=== PATIENT | female | born 1960 | race Two or more races ===

== ENCOUNTER → 2020-10-12 08:37 | Outpatient (BNVA) | payer OTHER, SELFPAY | PROVIDERS: Visit Provider Physician Assistant | DX: Z76.89 Persons encountering health services in other specified circumstances (principal) ==

== ENCOUNTER → 2020-11-01 09:45 | Outpatient (BNVA) | payer OTHER, SELFPAY | PROVIDERS: PCP Internal Medicine; Visit Provider Nurse Practitioner Gerontology | DX: Z76.89 Persons encountering health services in other specified circumstances (principal) ==

== ENCOUNTER 2020-11-29 11:02 | Outpatient (REF) | payer OTHER, SELFPAY ==
[2020-11-29 13:15] LABS: Alanine Aminotransferase 13 U/L (0-31); Albumin Level 4.4 g/dL (3.5-5.0); Alkaline Phosphatase 102 U/L (39-117); Anion Gap 12 (12-20); Aspartate Amino Transferase 22 U/L (5-31); Bilirubin Total 0.3 mg/dL (0.0-1.0); Blood Urea Nitrogen 17 mg/dL (9-16); Calcium 9.4 mg/dL (8.4-10.2); Carbon Dioxide 30 mmol/L (22-29); Chloride 101 mmol/L (96-108); Estimated Glomerular Filt Rate > 60; Glucose Random 152 mg/dL (60-115); Potassium 4.2 mmol/l (3.3-5.1); Sodium 139 mmol/L (135-145); Total Protein 7.6 g/dL (6.5-8.0)
== END 2020-11-29 11:03 | disposition home or self-care (01) ==
LOC: HO.LAB 11:02
PROVIDERS: PCP Internal Medicine; Visit Provider Student in an Organized Health Care Education/Training Program
DX: M79.7 Fibromyalgia (principal); M17.0 Bilateral primary osteoarthritis of knee; Z79.899 Other long term (current) drug therapy
CPT/HCPCS: 36415; 80053; 99212

== ENCOUNTER → 2020-12-27 10:17 | Outpatient (BNVA) | payer OTHER, SELFPAY | PROVIDERS: PCP Internal Medicine; Visit Provider Nurse Practitioner Gerontology | DX: E11.42 Type 2 diabetes mellitus with diabetic polyneuropathy (principal); Z79.4 Long term (current) use of insulin; I10 Essential (primary) hypertension; E78.5 Hyperlipidemia, unspecified; E66.9 Obesity, unspecified | CPT/HCPCS: 99212 ==

== ENCOUNTER → 2021-02-07 09:05 | Outpatient (BNVA) | payer OTHER, SELFPAY | PROVIDERS: PCP Internal Medicine; Visit Provider Nurse Practitioner Gerontology ==

== ENCOUNTER → 2021-04-19 09:26 | Outpatient (BNVA) | payer OTHER, SELFPAY | PROVIDERS: PCP Internal Medicine; Visit Provider Physician Assistant ==

== ENCOUNTER → 2021-04-26 13:17 | Outpatient (BNVA) | payer OTHER, SELFPAY | PROVIDERS: PCP Internal Medicine; Visit Provider Nurse Practitioner Gerontology ==

== ENCOUNTER → 2021-06-28 11:35 | Outpatient (BNVA) | payer OTHER, SELFPAY | PROVIDERS: Visit Provider Physician Assistant ==

== ENCOUNTER → 2021-08-01 13:34 | Outpatient (BNVA) | payer OTHER, SELFPAY | PROVIDERS: PCP Internal Medicine; Visit Provider Nurse Practitioner Gerontology ==

== ENCOUNTER → 2021-09-04 07:08 | Outpatient (REF) | payer OTHER, SELFPAY ==
--- NOTE | ~2021-09-04 | NM_ITS ---
EXAMINATION: RADIONUCLIDE SOLID FOOD GASTRIC EMPTYING 4-HOUR STUDY CLINICAL INFORMATION: Nausea. COMPARISON: No previous gastric emptying study is available for comparison. TECHNIQUE: A standard meal consisting of 4 oz of Egg Beaters brand equivalent tagged with 940 microcuries Tc-99m Sulfur Colloid, 8 oz water and 2 slices of toast with jelly was administered orally to the patient. Images were obtained using a dual head gamma camera in the anterior and posterior projections over of the stomach immediately post ingestion and at hourly intervals up to 4 hours post ingestion. The anterior and posterior counts at each time interval were averaged using the geometric mean and expressed as percentage of the immediate post ingestion counts. FINDINGS: There is good visualization of activity in the stomach immediately post ingestion. As the study progresses, there is only minimal visualization of small bowel activity early in the study and this progressively increases. However, at the end of the study there is moderately to markedly abnormal retention of activity in the stomach at 4 hours. Retention in the stomach at each time interval was: 1 hour 96% (normal 37%-90%) 2 hours 85% (normal 30%-60%) 3 hours 7% 4 hours 49% (normal 0%-10%) NM/NM gastric emptying study IMPRESSION: Abnormal study. There is moderate to markedly prolonged retention of solid food in the stomach at 4 hours.
== END ==
LOC: HO.NUCMED 07:08
PROVIDERS: Visit Provider Physician Assistant
DX: R11.0 Nausea (principal); E11.42 Type 2 diabetes mellitus with diabetic polyneuropathy; Z79.4 Long term (current) use of insulin; K76.0 Fatty (change of) liver, not elsewhere classified
CPT/HCPCS: 78264; A9541

== ENCOUNTER 2021-10-17 09:22 | Outpatient (REF) | payer OTHER, SELFPAY ==
[2021-10-17 12:07] LABS: Alanine Aminotransferase 10 U/L (0-31); Albumin Level 4.1 g/dL (3.5-5.0); Alkaline Phosphatase 110 U/L (39-117); Anion Gap 13 (12-20); Aspartate Amino Transferase 18 U/L (5-31); Bilirubin Total 0.4 mg/dL (0.0-1.0); Blood Urea Nitrogen 10 mg/dL (9-16); Calcium 9.9 mg/dL (8.4-10.2); Carbon Dioxide 29 mmol/L (22-29); Chloride 101 mmol/L (96-108); Estimated Glomerular Filt Rate > 60; Glucose Random 139 mg/dL (60-115); Potassium 4.2 mmol/L (3.3-5.1); Sodium 139 mmol/L (135-145); Total Protein 7.6 g/dL (6.5-8.0)
== END 2021-10-17 09:23 | disposition home or self-care (01) ==
LOC: HO.LAB 09:22
PROVIDERS: PCP Internal Medicine; Visit Provider Nurse Practitioner Family
DX: M17.0 Bilateral primary osteoarthritis of knee (principal)
CPT/HCPCS: 36415; 80053; 80171

== ENCOUNTER 2021-10-17 10:42 | Outpatient (REF) | payer OTHER, SELFPAY ==
[2021-10-17 10:48] LABS: MANUAL DIFF FLAG NO
[2021-10-17 11:41] LABS: Basophils Percent Auto 0.4 % (0-2); Eosinophils Absolute Auto 0.1 X10*3/uL (0.0-0.4); Eosinophils Percent Auto 1.3 % (0-4); Hemoglobin 11.9 g/dl (12.0-16.0); Imm Gran Abs Auto 0.02 X10*3/uL (0.00-0.03); Imm Gran Pct Auto 0.3 % (0.0-0.4); Lymphocytes Absolute Auto 1.8 X10*3/uL (1.2-4.9); Lymphocytes Percent Auto 24.1 % (20-40); Mean Corpuscular HGB Conc 32.2 g/dl (31.0-35.0); Mean Corpuscular Volume 99.5 fL (80.0-98.0); Monocytes Absolute Auto 0.7 X10*3/uL (0.1-1.2); Monocytes Percent Auto 9.9 % (2-11); Neutrophils Absolute Auto 4.8 x10*3/uL (2.0-8.3); Platelet Count 142 X10*3/uL (160-400); Red Blood Count 3.72 X10*6/uL (4.20-5.50); Red Cell Distribution Width 12.9 % (11.0-16.0); White Blood Count 7.5 X10*3/uL (4.8-10.8)
[2021-10-17 11:52] LABS: Appearance Urine HAZY; Color Urine YELLOW; Glucose Urine UA NEG (NEG); Leukocyte Esterase Urine NEG (NEG); Nitrite Urine NEG (NEG); Urine Blood NEG (NEG); Urine Ketones NEG (NEG); Urine Protein 1+ MG/DL (NEG-TRACE)
[2021-10-17 11:54] LABS: Alanine Aminotransferase 9 U/L (0-31); Albumin Level 4.1 g/dL (3.5-5.0); Alkaline Phosphatase 111 U/L (39-117); Anion Gap 12 (12-20); Aspartate Amino Transferase 19 U/L (5-31); Bilirubin Total 0.4 mg/dL (0.0-1.0); Blood Urea Nitrogen 10 mg/dL (9-16); Calcium 9.8 mg/dL (8.4-10.2); Carbon Dioxide 29 mmol/L (22-29); Chloride 102 mmol/L (96-108); Cholesterol 152 mg/dL; Estimated Glomerular Filt Rate > 60; Glucose Fasting 133 mg/dL (60-99); HDL Cholesterol 36 mg/dL; LDL Cholesterol Calculated 86 mg/dl; Potassium 4.2 mmol/L (3.3-5.1); Sodium 139 mmol/L (135-145); Total Protein 7.5 g/dL (6.5-8.0); Triglycerides 152 mg/dL
[2021-10-17 12:04] LABS: Reflex LDLD? No
[2021-10-17 12:14] LABS: Vitamin D 25-OH Total 27.5 ng/mL (>30)
[2021-10-17 12:18] LABS: Bacteria Urine TRACE /LPF; RBC Urine 0 /HPF (0); Squamous Epithelial Cell Urine 1+ /LPF; WBC Urine 0 /HPF (0-4)
[2021-10-17 12:25] LABS: Creatinine Urine 58.81 mg/dL; Microalbum/Creatinine Ratio Ur 841.6 ug/mg cr
[2021-10-17 12:26] LABS: Estimated Average Glucose 203 mg/dL; Hemoglobin A1c % 8.7 %
== END 2021-10-17 10:43 | disposition home or self-care (01) ==
LOC: HO.LNP 10:42
PROVIDERS: Visit Provider Internal Medicine
DX: Z00.00 Encounter for general adult medical examination without abnormal findings (principal); E55.9 Vitamin D deficiency, unspecified; E11.40 Type 2 diabetes mellitus with diabetic neuropathy, unspecified; E78.00 Pure hypercholesterolemia, unspecified; D69.6 Thrombocytopenia, unspecified; I10 Essential (primary) hypertension
CPT/HCPCS: 80053; 80061; 81001; 81003; 82043; 82306; 83036; 85025

== ENCOUNTER → 2021-11-21 12:25 | Outpatient (BNVA) | payer OTHER, SELFPAY | PROVIDERS: PCP Internal Medicine; Visit Provider Nurse Practitioner Family | DX: M17.0 Bilateral primary osteoarthritis of knee (principal); M79.7 Fibromyalgia; M25.572 Pain in left ankle and joints of left foot | CPT/HCPCS: 99212 ==

== ENCOUNTER → 2021-12-05 13:14 | Outpatient (BNVA) | payer OTHER, SELFPAY | PROVIDERS: PCP Internal Medicine; Visit Provider Nurse Practitioner Gerontology | DX: E11.42 Type 2 diabetes mellitus with diabetic polyneuropathy (principal); I10 Essential (primary) hypertension; E78.5 Hyperlipidemia, unspecified; R80.9 Proteinuria, unspecified; E66.9 Obesity, unspecified; Z68.37 Body mass index [BMI] 37.0-37.9, adult; Z79.4 Long term (current) use of insulin | CPT/HCPCS: 82947; 99212 ==

== ENCOUNTER 2021-12-11 07:47 | Outpatient (REF) | payer OTHER, SELFPAY ==
--- NOTE | ~2021-12-11 | XR_ITS ---
EXAMINATION: XR ankle LT min 3V CLINICAL INFORMATION: Pain COMPARISON: Left foot radiographs TECHNIQUE: 3 views of the ankle XR/XR ankle LT min 3V FINDINGS/IMPRESSION: Punctate age-indeterminate osseous fragment along the medial malleolus may reflect sequelae of age-indeterminate avulsion fracture. No significant overlying soft tissue swelling. Mild degenerative changes of the ankle with Achilles tendon and plantar calcaneal enthesopathy. No joint effusion.
== END 2021-12-11 07:48 | disposition home or self-care (01) ==
LOC: HO.HOSX 07:47
PROVIDERS: Visit Provider Physician Assistant
DX: M19.072 Primary osteoarthritis, left ankle and foot (principal)
CPT/HCPCS: 73610; 99202

== ENCOUNTER → 2021-12-14 13:32 | Outpatient (BNVA) | payer OTHER, SELFPAY | PROVIDERS: PCP Internal Medicine; Referring Provider Internal Medicine; Visit Provider Physician Assistant | DX: K31.84 Gastroparesis (principal); K59.09 Other constipation; E11.42 Type 2 diabetes mellitus with diabetic polyneuropathy; Z79.4 Long term (current) use of insulin; Z79.82 Long term (current) use of aspirin | CPT/HCPCS: 99212 ==

== ENCOUNTER 2022-01-24 15:00 | Outpatient (RCR) | payer OTHER, SELFPAY ==
--- NOTE | 2021-12-27 15:55 | MHC.PT.EP ---
[facility] [place] Office [place] Office [place] Office [address] Ju[place] Rivera [address] [phone] F: [phone] F: [phone] F: [phone] F: [phone] Physical Therapy Plan of Care Date of Evaluation: Date of Surgery: Diagnosis: OA L ankle and foot Assessment: 61 y/o female referred to PT with L ankle OA. PMH significant for HTN, DM, CVA, and neuropathy. 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 Examination shows decreased ankle AROM, decreased B LE strength, increased senstivity to touch medial malleoli, impaired balance, and impaired gait pattern. Recommend PT 2x/week for 5 weeks to address impairments, implement HEP, and optimize functional mobility. Frequency and Duration: The patient will be seen 2x/week for 5 weeks Short Term Goals: 3 weeks 1. Compliant with HEP 2. 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 I with HEP and self management of sx 2. Pt will be able to stand > 15 min to wash dishes with pain < 3/10 Treatment Plan: Modalities to reduce pain, spasms and effusion. Manual therapy to restore motion and function. Therapeutic exercise to improve strength and flexibility. Neuromuscular re-education for posture and balance. Therapeutic activities to return to functional activities of daily living. Electronically signed by: Silke Dumas PT Please sign and return to therapist. Thank you for your referral.
--- NOTE | 2022-02-07 13:22 | MHC.PT.DC ---
[facility] [place] Office [place] Office [place] Office [address] Ju[place] Rivera 140 [facility] [phone] F: [phone] F: [phone] F: [phone] F: [phone] Physical Therapy Discharge Report Diagnosis: OA L ankle and foot Date of Surgery: Date of Evaluation: 12/27/21 Date of Discharge: 02/07/22 Treatments to Date: 7 Cancellations to Date: 0 No Shows to Date: 0 Discharge Status: Patient Elected to Stop Discharge Summary: Pt elected to stop PT with minimal change. Electronically signed by: Silke Dumas PT Please sign and return to therapist. Thank you for your referral.
== END 2022-02-07 13:22 | disposition home or self-care (01) ==
LOC: HO.PT 15:00
PROVIDERS: PCP Internal Medicine; Visit Provider Physician Assistant
DX: M19.072 Primary osteoarthritis, left ankle and foot (principal)
CPT/HCPCS: 97110; 97140; 97161

== ENCOUNTER 2022-02-15 13:38 | Outpatient (REF) | payer OTHER, SELFPAY ==
[2022-02-22 04:28] LABS: HPV mRNA E6/E7 rflx Not Detected (Not Detected)
== END 2022-02-15 13:39 | disposition home or self-care (01) ==
LOC: HO.LAB 13:38
PROVIDERS: PCP Internal Medicine; Visit Provider Advanced Practice Midwife
DX: Z01.419 Encounter for gynecological examination (general) (routine) without abnormal findings (principal); Z11.51 Encounter for screening for human papillomavirus (HPV)
CPT/HCPCS: 87624; 88142

== ENCOUNTER → 2022-03-20 13:00 | Outpatient (BNVA) | payer OTHER, SELFPAY | PROVIDERS: PCP Internal Medicine; Visit Provider Nurse Practitioner Gerontology | DX: E11.42 Type 2 diabetes mellitus with diabetic polyneuropathy (principal); I10 Essential (primary) hypertension; E78.5 Hyperlipidemia, unspecified; E66.9 Obesity, unspecified; R80.9 Proteinuria, unspecified; Z79.4 Long term (current) use of insulin | CPT/HCPCS: 99212 ==

== ENCOUNTER → 2022-04-06 13:39 | Outpatient (BNVA) | payer OTHER, SELFPAY | PROVIDERS: PCP Internal Medicine; Visit Provider Physician Assistant | DX: M19.072 Primary osteoarthritis, left ankle and foot (principal) | CPT/HCPCS: 99212 ==

== ENCOUNTER → 2022-09-10 13:51 | Outpatient (BNVA) | payer OTHER, SELFPAY | PROVIDERS: PCP Internal Medicine; Visit Provider Physician Assistant | DX: K59.09 Other constipation (principal); K31.84 Gastroparesis; K76.0 Fatty (change of) liver, not elsewhere classified | CPT/HCPCS: 99212 ==

== ENCOUNTER 2022-10-18 13:07 | Emergency (ER) | payer OTHER, SELFPAY ==
--- NOTE | ~2022-10-18 | XR_ITS ---
EXAMINATION: XR CHEST CLINICAL INFORMATION: Chest pain COMPARISON: March 2018. TECHNIQUE: AP upright portable view of the chest was obtained. 1:30 PM, patient slightly rotated to the right. FINDINGS: No significant abnormality is noted involving the heart, lungs, mediastinum, bony thorax or soft tissues. XR/XR chest 1V IMPRESSION: Unremarkable examination.
[2022-10-18 13:24] VITALS: BP 178/78; PULSE 80
[2022-10-18 13:28] VITALS: BP 168/70; PULSE 81; RESP 16; O2SAT 95; BMI 39.0
--- NOTE | 2022-10-18 13:28 | ECG_ITS ---
Test Reason : CHEST PAIN Blood Pressure : / mmHG Vent. Rate : 076 BPM Atrial Rate : 076 BPM P-R Int : 184 ms QRS Dur : 096 ms QT Int : 360 ms P-R-T Axes : 044 027 036 degrees QTc Int : 405 ms Normal sinus rhythm Normal ECG When compared with ECG of 11-MAR-2018 13:46, No significant change was found Referred By: Ramya Morales Electronically Signed By:IRMA HARRIS
--- NOTE | 2022-10-18 13:29 | ED.GENADULT ---
HPI - General Adult General Chief complaint: General Medical Stated complaint: back pain, pain around chest per EMS Time Seen by Provider: 10/18/22 13:27 Source: patient and EMS Mode of arrival: EMS Limitations: no limitations History of Present Illness HPI narrative: 62-year-old female with a history of fibromyalgia, osteoarthritis, constipation, gastroparesis, HLD, HTN, DM with polyneuropathy, CHAUDHARI who presents ot the ER via EMS c/o back and chest pains that started at 10am when she went to reach up for something in the kitchen cupboard. She reports the pain is constant, does not radiate and is in the center of her chest. She denies any associated shortness of breath, nausea, diaphoresis. She states she also has pain in her back that is worse with movement. She feels like she is having a flare-up of her fibromyalgia but she usually does not get pain in the center of her chest when her fibromyalgia acts up. MD complaint: Chest pain and back pain Onset (ago): hour(s) Location: neck and back Radiation: non-radiation Severity: mild Severity scale (1-10): 3 Quality: aching Pain Consistency: constant Relieving factors: rest Exacerbating factors: movement and other ( palpation) Associated symptoms: denies other symptoms Treatments prior to arrival: none Related Data Home Medications Medication Instructions Recorded Confirmed atenolol 50 mg tablet 50 mg PO DAILY 10/12/20 09/10/22 alcohol swabs pad topical 11/01/20 09/10/22 ferrous sulfate 325 mg (65 mg 325 mg PO DAILY 11/01/20 09/10/22 iron) tablet pen needle, diabetic 32 gauge x #50 ea 11/01/20 09/10/22 aspirin 81 mg tablet,delayed 81 mg PO DAILY 12/27/20 09/10/22 release cholecalciferol (vitamin D3) 50 50 mcg PO DAILY 02/07/21 09/10/22 mcg (2,000 unit) tablet acetaminophen 500 mg tablet 500 mg PO Q6H PRN 11/21/21 09/10/22 (Tylenol Extra Strength) triamcinolone acetonide 0.1 % appl topical DAILY 12/14/21 09/10/22 topical cream amlodipine 2.5 mg tablet 2.5 mg PO DAILY 03/20/22 09/10/22 canagliflozin 100 mg tablet 100 mg PO DAILY 03/20/22 09/10/22 (Invokana) Previous Rx's Medication Instructions Recorded lisinopril 40 mg tablet 40 mg PO DAILY #30 tabs 03/24/21 blood sugar diagnostic (FreeStyle #150 ea 12/05/21 Lite Strips) prucalopride 1 mg tablet 2 mg PO DAILY #30 tabs 12/14/21 (Motegrity) omeprazole 40 mg capsule,delayed 40 mg PO DAILY #30 caps 03/12/22 release dulaglutide 0.75 mg/0.5 mL 0.75 mg (0.5 mL) subcut QWEEK #2 mL 03/20/22 subcutaneous pen injector (Trulicity) dulaglutide 1.5 mg/0.5 mL 1.5 mg (0.5 mL) subcut QWEEK 28 03/20/22 subcutaneous pen injector days #2 mL (Trulicity) insulin degludec 200 unit/mL (3 68 unit (0.34 mL) subcut DAILY 30 03/20/22 mL) subcutaneous pen (Tresiba days #12 mL FlexTouch U-200 insulin) insulin lispro 100 unit/mL See Rx Instructions subcut TID 30 03/20/22 subcutaneous pen (Admelog SoloStar days #30 mL U-100 Insulin lispro) metformin 500 mg tablet 500 mg PO BID 30 days #60 tabs 03/20/22 atorvastatin 40 mg tablet 40 mg PO DAILY #30 tabs 05/14/22 hydrochlorothiazide 12.5 mg capsule 12.5 mg PO DAILY #30 caps 07/11/22 docusate sodium 100 mg capsule 200 mg PO BEDTIME #60 caps 09/10/22 docusate sodium 100 mg capsule 200 mg PO BEDTIME #60 caps 09/10/22 (Colace) hydrocortisone 2.5 % topical cream 1 appl TN BEDTIME PRN hemorrhoids 09/10/22 with perineal applicator #30 grams (Proctosol HC) polyethylene glycol 3350 17 17 g PO DAILY #510 grams 09/10/22 gram/dose oral powder (Miralax) pregabalin 100 mg capsule 100 mg PO BID #60 caps 10/15/22 cyclobenzaprine 10 mg tablet 10 mg PO TID PRN muscle spasm #10 10/18/22 tabs naproxen 500 mg tablet 500 mg PO BID PRN pain #20 tabs 10/18/22 Allergies Allergy/AdvReac Type Severity Reaction Status Date / Time GEL ELECTRODES Allergy Mild RASH Uncoded 03/20/22 13:22 Review of Systems Review of Systems: Constitutional: No Fever, No Chills ENT/Mouth: No sore throat, No Rhinorrhea, No Swallowing Difficulty Cardiovascular: + Chest Pain, No SOB, No Orthopnea, No Edema Respiratory: No Cough, No Sputum, No Wheezing, No dyspnea Gastrointestinal: No Nausea, No Vomiting, No Diarrhea, No abdominal Pain Genitourinary: No Dysuria, No Urinary Frequency, No Hematuria Musculoskeletal: + joint pain, + Myalgias Skin: No Skin Lesions, No rash Neuro: No Weakness, No Numbness, No Dizziness, No Headache Psych: No Anxiety/Panic, No Depression Heme/Lymph: No Bruising, No Lymphadenopathy PMFSH Past Medical History Medical History Anxiety Chronic constipation Depression Essential hypertension Fibromyalgia Fibromyalgia Hepatomegaly History of alcohol abuse Hyperlipidemia LDL goal <70 NAFLD (nonalcoholic fatty liver disease) Neuropathy Obesity with body mass index of 30.0-39.9 DARIEL on CPAP Osteoarthritis Primary osteoarthritis of knees, bilateral Stroke Tubular adenoma of colon Type 2 diabetes mellitus with diabetic polyneuropathy Upper GI bleed Urinary incontinence Surgical History History of temporal artery biopsy Hx of colonoscopy Hx of esophagogastroduodenoscopy Family History Family History Father Diabetes Mother Hypertension Daughter Breast cancer Ovarian cancer Social History Social History Household Members: Family Household Members Other:: adult child and grandchild Alcohol intake: former Patient Tobacco Use Status: Former Tobacco user Years Smoked: quit 10 years ago Advance Directives: Yes Advance Directives Information Provided: Yes Advance Directives on File: No Current occupational status: disabled Current occupation: rt handed Physical Exam ED Vital Signs: Vital Signs - 24 hr 10/18/22 13:28 10/18/22 13:58 10/18/22 16:37 Temperature 98.2 F 98.1 F Pulse Rate 81 75 63 Respiratory Rate 16 15 19 Blood Pressure 168/70 H 133/48 L 142/66 H Pulse Oximetry 95 98 97 Oxygen Delivery Method Room Air Room Air Room Air BMI result Body Mass Index 39.0 Appearance: Alert. Oriented X3. No acute distress. Eyes: Pupils equal, round and reactive to light. ENT: Pharynx normal. Neck: Normal inspection. Neck supple. CVS: Normal heart rate and rhythm. Pulses normal. Respiratory: No respiratory distress. Breath sounds normal. anterior chest wall tenderness of the sternum. Abdomen: Soft and nontender. +BS x4 Skin: Skin warm and dry. Normal skin color. Normal skin turgor. No rashes. Extremities: No lower extremity edema. No calf tenderness or swelling. Neuro: Oriented X 3. No motor deficit. No sensory deficit. Course Course Course Narrative: 62-year-old female with history of diabetes, fibromyalgia, osteoarthritis, constipation, gastroparesis, HTN, HLD presenting to the ER for evaluation of central nonradiating chest pain that started after reaching up for something in the covered. It is reproducible on examination. She is hemodynamically stable. Most likely muscular pain. Does not radiate to the back and she has soft tissue tenderness of her back muscles which is acute on chronic due to her fibromyalgia. Will get cardiac workup to rule out ACS although this is less likely. Doubt any dissection or PE. She is comfortable playing on her phone. Reevaluation(s) Reevaluation #1: First troponin is less than 3.5. Her EKG was reviewed. No ST elevations. will get 2nd troponin. Reevaluation #2: Second troponin is negative. Her pain is improved after Toradol. Will treat for musculoskeletal chest pain and have her follow-up with her PCP. She was given strict return precautions. Medications Administered Discontinued Medications Generic Name Dose Route Start Last Admin Trade Name Freq PRN Reason Stop Dose Admin Ketorolac Tromethamine 30 mg 10/18/22 15:33 10/18/22 15:52 Ketorolac Tromethamine 30 Mg/Ml Vial IM 10/18/22 15:34 30 mg ONCE ONE Administration Medical Decision Making Lab Data Result Diagrams: 10/18/22 14:44 10/18/22 14:44 Labs: Lab Results 10/18/22 10/18/22 10/18/22 Range/Units 14:44 14:44 14:44 WBC 8.6 (4.8-10.8) X10*3/uL RBC 3.70 L (4.20-5.50) X10*6/uL Hgb 11.7 L (12.0-16.0) g/dl Hct 35.9 L (37.0-47.0) % MCV 97.0 (80.0-98.0) fL MCH 31.6 (27.0-33.0) pg MCHC 32.6 (31.0-35.0) g/dl RDW 13.0 (11.0-16.0) % Plt Count 134 L (160-400) X10*3/uL MPV 12.8 H (9.4-12.3) fL Immature Gran % (Auto) Cancelled Neut % (Auto) Cancelled Lymph % (Auto) Cancelled [place] % (Auto) Cancelled Eos % (Auto) Cancelled Baso % (Auto) Cancelled Lymph # (Auto) Cancelled [place] # (Auto) Cancelled Eos # (Auto) Cancelled Baso # (Auto) Cancelled Abs Immat Gran (auto) Cancelled Absolute Neuts (auto) Cancelled Absolute Nucleated RBC 0.000 (0.0-0.012) X10*3/uL Nucleated RBC % (auto) 0.0 (0.0-0.2) /100WBC Neutrophils % (Manual) 72 (45-73) % Band Neutrophils % 0 L (3-5) % Lymphocytes % (Manual) 23 (20-40) % Monocytes % (Manual) 3 (2-11) % Eosinophils % (Manual) 1 (0-4) % Basophils % (Manual) 1 (0-2) % Abs Neuts (Manual) 6.2 (2.0-8.3) X10*3/uL Lymphocytes # (Manual) 2.0 (1.2-4.9) X10*3/uL Monocytes # (Manual) 0.3 (0.1-1.2) X10*3/uL Eosinophils # (Manual) 0.1 (0.0-0.4) X10*3/uL Basophils # (Manual) 0.1 (0.0-0.2) X10*3/uL Platelet Estimate SLIGHTLY DECREASED (NORMAL) Large Platelets PRESENT Plt Morphology Comment NOTED RBC Morphology NORMAL Sodium 137 (135-145) mmol/L Potassium 4.8 (3.3-5.1) mmol/L Chloride 98 (96-108) mmol/L Carbon Dioxide 34 H (22-29) mmol/L Anion Gap 10 L (12-20) BUN 22 H (9-16) mg/dL Creatinine 0.99 (0.5-1.4) mg/dL Estim Creat Clear Calc 59.1 Estimated GFR 57 Random Glucose 203 H (60-115) mg/dL Calcium 9.7 (8.4-10.2) mg/dL Magnesium 2.0 (1.6-2.6) mg/dL Total Bilirubin 0.2 (0.0-1.0) mg/dL Direct Bilirubin < 0.2 (0.0-0.5) mg/dL AST 14 (5-31) U/L ALT 7 (0-31) U/L Alkaline Phosphatase 114 (39-117) U/L Troponin I High Sens < 3.5 (<3.5-17.0) ng/L Total Protein 7.5 (6.5-8.0) g/dL Albumin 4.3 (3.5-5.0) g/dL COVID-19 (ARYA) (Negative) COVID-19 Clin Com Influenza Type A (VICTORIANO) (Negative) Influenza Type B (VICTORIANO) (Negative) Influenza A & B Note 10/18/22 10/18/22 10/18/22 Range/Units 14:45 15:05 16:10 WBC (4.8-10.8) X10*3/uL RBC (4.20-5.50) X10*6/uL Hgb (12.0-16.0) g/dl Hct (37.0-47.0) % MCV (80.0-98.0) fL MCH (27.0-33.0) pg MCHC (31.0-35.0) g/dl RDW (11.0-16.0) % Plt Count (160-400) X10*3/uL MPV (9.4-12.3) fL Immature Gran % (Auto) Neut % (Auto) Lymph % (Auto) [place] % (Auto) Eos % (Auto) Baso % (Auto) Lymph # (Auto) [place] # (Auto) Eos # (Auto) Baso # (Auto) Abs Immat Gran (auto) Absolute Neuts (auto) Absolute Nucleated RBC (0.0-0.012) X10*3/uL Nucleated RBC % (auto) (0.0-0.2) /100WBC Neutrophils % (Manual) (45-73) % Band Neutrophils % (3-5) % Lymphocytes % (Manual) (20-40) % Monocytes % (Manual) (2-11) % Eosinophils % (Manual) (0-4) % Basophils % (Manual) (0-2) % Abs Neuts (Manual) (2.0-8.3) X10*3/uL Lymphocytes # (Manual) (1.2-4.9) X10*3/uL Monocytes # (Manual) (0.1-1.2) X10*3/uL Eosinophils # (Manual) (0.0-0.4) X10*3/uL Basophils # (Manual) (0.0-0.2) X10*3/uL Platelet Estimate (NORMAL) Large Platelets Plt Morphology Comment RBC Morphology Sodium (135-145) mmol/L Potassium (3.3-5.1) mmol/L Chloride (96-108) mmol/L Carbon Dioxide (22-29) mmol/L Anion Gap (12-20) BUN (9-16) mg/dL Creatinine (0.5-1.4) mg/dL Estim Creat Clear Calc Estimated GFR Random Glucose (60-115) mg/dL Calcium (8.4-10.2) mg/dL Magnesium (1.6-2.6) mg/dL Total Bilirubin (0.0-1.0) mg/dL Direct Bilirubin (0.0-0.5) mg/dL AST (5-31) U/L ALT (0-31) U/L Alkaline Phosphatase (39-117) U/L Troponin I High Sens 3.7 (<3.5-17.0) ng/L Total Protein (6.5-8.0) g/dL Albumin (3.5-5.0) g/dL COVID-19 (ARYA) Negative (Negative) COVID-19 Clin Com See Note Influenza Type A (VICTORIANO) Negative (Negative) Influenza Type B (VICTORIANO) Negative (Negative) Influenza A & B Note See Note Independent Interpretation I performed an independent interpretation of an: EKG Interpretation: normal sinus rhythm, HR 76 bpm, question ST depression in V4 only, no ST segment elevations, normal QRS, normal QTc Scores Heart Score History: -0- slightly suspicious ECG: -0- normal Age: -1- >45 - <65 Risk factory: -1- 1 or 2 risk factors Troponin: -0- < or = normal limit Score: 2 Risk: 1.7% Discharge Plan Discharge Clinical Impression: Acute chest wall pain Patient Disposition: Home, Self-Care Instructions: Chest Wall Pain (ED) Additional Instructions: Your workup today was unremarkable. Your pain is most likely muscular. Take the prescribed medications as directed. Follow-up with your primary care doctor. If you develop new or worsening symptoms call 911 or come back to the ER for further evaluation. Prescriptions: New cyclobenzaprine 10 mg tablet 10 mg PO TID PRN (Reason: muscle spasm) Qty: 10 0RF naproxen 500 mg tablet 500 mg PO BID PRN (Reason: pain) Qty: 20 0RF No Action lisinopril 40 mg tablet 40 mg PO DAILY Qty: 30 1RF omeprazole 40 mg capsule,delayed release(DR/EC) 40 mg PO DAILY Qty: 30 11RF atorvastatin 40 mg tablet 40 mg PO DAILY Qty: 30 6RF hydrochlorothiazide 12.5 mg capsule 12.5 mg PO DAILY Qty: 30 4RF docusate sodium 100 mg capsule 200 mg PO BEDTIME Qty: 60 5RF pregabalin 100 mg capsule 100 mg PO BID Qty: 60 0RF alcohol swabs Pads, Medicated topical ferrous sulfate 325 mg (65 mg iron) tablet 325 mg PO DAILY (DME) pen needle, diabetic 32 gauge x 5/32 needle See Rx Instructions subcut QID Qty: 50 Rx Instructions: As directed aspirin 81 mg tablet,delayed release (DR/EC) 81 mg PO DAILY acetaminophen [Tylenol Extra Strength] 500 mg tablet 500 mg PO Q6H PRN cholecalciferol (vitamin D3) 50 mcg (2,000 unit) tablet 50 mcg PO DAILY atenolol 50 mg tablet 50 mg PO DAILY triamcinolone acetonide 0.1 % cream topical DAILY Motegrity 1 mg tablet 2 mg PO DAILY Qty: 30 3RF docusate sodium [Colace] 100 mg capsule 200 mg PO BEDTIME Qty: 60 12RF polyethylene glycol 3350 [Miralax] 17 gram/dose powder 17 g PO DAILY Qty: 510 2RF hydrocortisone [Proctosol HC] 2.5 % cream with perineal applicator 1 appl TN BEDTIME PRN (Reason: hemorrhoids) Qty: 30 3RF (DME) FreeStyle Lite Strips Strip See Rx Instructions .ROUTE .MEDSUPPLY Qty: 150 11RF Rx Instructions: As directed four times a day Invokana 100 mg tablet 100 mg PO DAILY amlodipine 2.5 mg tablet 2.5 mg PO DAILY insulin lispro [Admelog SoloStar U-100 Insulin] 100 unit/mL insulin pen See Rx Instructions subcut TID 30 Days Qty: 30 6RF Rx Instructions: 15 u for small meals, 15 u for large, + 2 units for bg>200, + 3 units for BG >250, + 4 units bg >300mg/dl. Of note..for very light meal use only 6 units. subcut 3 times a day; Trulicity 0.75 mg/0.5 mL pen injector 0.75 mg subcut QWEEK Qty: 2 0RF Rx Instructions: Use 0.75mg/week for 4 weeks, then increase to 1.5mg/week Trulicity 1.5 mg/0.5 mL pen injector 1.5 mg subcut QWEEK 28 Days Qty: 2 6RF Tresiba FlexTouch U-200 200 unit/mL (3 mL) insulin pen 68 unit subcut DAILY 30 Days Qty: 12 6RF metformin 500 mg tablet 500 mg PO BID 30 Days Qty: 60 6RF
[2022-10-18 13:58] VITALS: BP 133/48; PULSE 75; RESP 15; TEMP 36.8; O2SAT 98
[2022-10-18 14:57] LABS: Hematocrit 35.9 % (37.0-47.0); Hemoglobin 11.7 g/dl (12.0-16.0); Mean Corpuscular HGB Conc 32.6 g/dl (31.0-35.0); Mean Corpuscular Hemoglobin 31.6 pg (27.0-33.0); Mean Platelet Volume 12.8 fL (9.4-12.3); Platelet Count 134 X10*3/uL (160-400)
[2022-10-18 14:59] LABS: WBC ABN SCTR FOR CBC 1
[2022-10-18 15:18] LABS: Band Neutrophils Percent 0 % (3-5); Basophils Percent Manual 1 % (0-2); Eosinophils Percent Manual 1 % (0-4); Lymphocytes Percent Manual 23 % (20-40); Monocytes Percent Manual 3 % (2-11); Neutrophils Percent Manual 72 % (45-73)
[2022-10-18 15:19] LABS: Large Platelet PRESENT; Platelet Estimate SLIGHTLY DECREASED (NORMAL); Platelet Morphology Comment NOTED; RBC Morphology NORMAL
[2022-10-18 15:20] LABS: COVID-19 Test Negative (Negative); IDNOW Serial# 9DB6401D
[2022-10-18 15:22] LABS: Alanine Aminotransferase 7 U/L (0-31); Albumin Level 4.3 g/dL (3.5-5.0); Alkaline Phosphatase 114 U/L (39-117); Anion Gap 10 (12-20); Aspartate Amino Transferase 14 U/L (5-31); Bilirubin Direct < 0.2 mg/dL (0.0-0.5); Bilirubin Total 0.2 mg/dL (0.0-1.0); Blood Urea Nitrogen 22 mg/dL (9-16); Calcium 9.7 mg/dL (8.4-10.2); Carbon Dioxide 34 mmol/L (22-29); Chloride 98 mmol/L (96-108); Creatinine Clr Calc Pharmacy 59.1; Estimated Glomerular Filt Rate 57; Glucose Random 203 mg/dL (60-115); Potassium 4.8 mmol/L (3.3-5.1); Sodium 137 mmol/L (135-145); Total Protein 7.5 g/dL (6.5-8.0)
[2022-10-18 15:24] LABS: Basophils Abs Manual 0.1 X10*3/uL (0.0-0.2); Eosinophils Absolute Manual 0.1 X10*3/uL (0.0-0.4); Monocytes Absolute Manual 0.3 X10*3/uL (0.1-1.2); Neutrophils Absolute Manual 6.2 X10*3/uL (2.0-8.3); White Blood Count 8.6 X10*3/uL (4.8-10.8)
[2022-10-18 15:28] LABS: Troponin-I High Sensitivity < 3.5 ng/L (<3.5-17.0)
[2022-10-18 15:32] LABS: IDNOW Serial# 55D5AD1C; Influenza A Negative (Negative); Influenza B2 Negative (Negative)
[2022-10-18] MEDS: Ketorolac Tromethamine 30 MG/ML VIAL IM (15:52)
[2022-10-18 16:37] VITALS: BP 142/66; PULSE 63; RESP 19; TEMP 36.7; O2SAT 97
[2022-10-18 16:44] LABS: Troponin-I High Sensitivity 3.7 ng/L (<3.5-17.0)
== END 2022-10-18 17:14 | disposition home or self-care (01) ==
PROVIDERS: Physician Assistant; Emergency Provider Student in an Organized Health Care Education/Training Program; PCP Internal Medicine
DX: R07.89 Other chest pain (principal); M54.50 Low back pain, unspecified; Z20.822 Contact with and (suspected) exposure to COVID-19; Z87.891 Personal history of nicotine dependence; Z79.899 Other long term (current) drug therapy
CPT/HCPCS: 36415; 71045; 80048; 80076; 83735; 84484; 85007; 85027; 87502; 87635; 93005; 96372; 99284; J1885

== ENCOUNTER → 2022-11-01 09:50 | Outpatient (BNVA) | payer OTHER, SELFPAY | PROVIDERS: PCP Internal Medicine; Visit Provider Internal Medicine Endocrinology, Diabetes & Metabolism | DX: E11.42 Type 2 diabetes mellitus with diabetic polyneuropathy (principal); Z79.4 Long term (current) use of insulin | CPT/HCPCS: 82947; 83036; 99212 ==

== ENCOUNTER 2022-11-01 15:48 | Outpatient (REF) | payer OTHER, SELFPAY ==
[2022-11-01 16:15] LABS: Appearance Urine Clear; Color Urine Yellow; Glucose Urine UA >=1000 mg/dL (Negative); Leukocyte Esterase Urine Trace (Negative); Nitrite Urine Negative (Negative); PH 5.5 (5.0-9.0); Specific Gravity - Urine 1.025 (1.005-1.025); UMIC TRIGGER UA YES; Urine Blood Negative (Negative); Urine Ketones Negative (Negative); Urine Protein Negative (Neg-Trace)
[2022-11-01 16:17] LABS: Bacteria Urine Trace (None Seen); Hyaline Casts Urine 0-2 /LPF (0-2); RBC Urine 0-2 /HPF (0-2); Squamous Epithelial Cell Urine 0-2 /HPF (0-2); WBC Urine 0-5 /HPF (0-5)
[2022-11-01 16:22] LABS: Basophils Percent Auto 0.4 % (0-2); Hemoglobin 11.9 g/dl (12.0-16.0); Mean Platelet Volume 13.3 fL (9.4-12.3); Red Cell Distribution Width 13.7 % (11.0-16.0); SCAN SMEAR FLAG 1
[2022-11-01 16:24] LABS: Eosinophils Absolute Auto 0.1 X10*3/uL (0.0-0.4); Eosinophils Percent Auto 1.5 % (0-4); Hematocrit 37.1 % (37.0-47.0); Imm Gran Abs Auto 0.03 X10*3/uL (0.00-0.03); Imm Gran Pct Auto 0.4 % (0.0-0.4); Lymphocytes Percent Auto 25.2 % (20-40); MANUAL DIFF FLAG SCAN; Mean Corpuscular HGB Conc 32.1 g/dl (31.0-35.0); Mean Corpuscular Hemoglobin 31.5 pg (27.0-33.0); Mean Corpuscular Volume 98.1 fL (80.0-98.0); Monocytes Absolute Auto 0.7 X10*3/uL (0.1-1.2); Monocytes Percent Auto 8.8 % (2-11); Neutrophils Absolute Auto 5.1 x10*3/uL (2.0-8.3); Neutrophils Percent Auto 63.7 % (45-73); Platelet Count 146 X10*3/uL (160-400); Red Blood Count 3.78 X10*6/uL (4.20-5.50)
[2022-11-01 16:26] LABS: Estimated Average Glucose 183 mg/dL
[2022-11-01 16:31] LABS: PLT ABN DIST 1
[2022-11-01 16:48] LABS: Creatinine Urine 84.94 mg/dL; Microalbum/Creatinine Ratio Ur 21.1 ug/mg cr
[2022-11-01 16:49] LABS: SLIDE REVIEW VERIFIED
[2022-11-01 17:11] LABS: Alanine Aminotransferase 8 U/L (0-31); Albumin Level 4.5 g/dL (3.5-5.0); Alkaline Phosphatase 98 U/L (39-117); Anion Gap 14 (12-20); Aspartate Amino Transferase 16 U/L (5-31); Bilirubin Total 0.5 mg/dL (0.0-1.0); Blood Urea Nitrogen 31 mg/dL (9-16); Carbon Dioxide 31 mmol/L (22-29); Chloride 100 mmol/L (96-108); Cholesterol 193 mg/dL; Estimated Glomerular Filt Rate > 60; Glucose Fasting 98 mg/dL (60-99); HDL Cholesterol 40 mg/dL; LDL Cholesterol Calculated 115 mg/dl; Potassium 4.8 mmol/L (3.3-5.1); Sodium 140 mmol/L (135-145); Triglycerides 190 mg/dL; Vitamin D 25-OH Total 44.4 ng/mL (>30)
== END 2022-11-01 15:49 | disposition home or self-care (01) ==
LOC: HO.LNP 15:48
PROVIDERS: Visit Provider Internal Medicine
DX: Z00.00 Encounter for general adult medical examination without abnormal findings (principal); E11.9 Type 2 diabetes mellitus without complications; E78.00 Pure hypercholesterolemia, unspecified; E55.9 Vitamin D deficiency, unspecified; D69.6 Thrombocytopenia, unspecified
CPT/HCPCS: 80053; 80061; 81001; 82043; 82306; 83036; 85025

== ENCOUNTER → 2022-11-02 08:44 | Outpatient (BNVA) | payer OTHER, SELFPAY | PROVIDERS: PCP Internal Medicine; Visit Provider Registered Nurse Diabetes Educator | DX: E11.42 Type 2 diabetes mellitus with diabetic polyneuropathy (principal); Z79.4 Long term (current) use of insulin | CPT/HCPCS: 99211 ==

== ENCOUNTER → 2022-11-12 12:34 | Outpatient (BNVA) | payer OTHER, SELFPAY | PROVIDERS: PCP Internal Medicine; Visit Provider Registered Nurse Diabetes Educator | DX: E11.42 Type 2 diabetes mellitus with diabetic polyneuropathy (principal); Z79.4 Long term (current) use of insulin | CPT/HCPCS: 99211 ==

== ENCOUNTER 2022-11-21 13:00 | Outpatient (REF) | payer OTHER, SELFPAY ==
[2022-11-21 14:03] LABS: Appearance Urine Clear; Color Urine Yellow; Glucose Urine UA >=1000 mg/dL (Negative); Leukocyte Esterase Urine Negative (Negative); Nitrite Urine Negative (Negative); PH 5.5 (5.0-9.0); Specific Gravity - Urine 1.025 (1.005-1.025); UMIC TRIGGER UA YES; Urine Blood Negative (Negative); Urine Ketones Negative (Negative); Urine Protein Negative (Neg-Trace)
[2022-11-21 14:13] LABS: Bacteria Urine Trace (None Seen); Hyaline Casts Urine 0-2 /LPF (0-2); RBC Urine 0-2 /HPF (0-2); WBC Urine 0-5 /HPF (0-5)
[2022-11-21 14:22] LABS: Microalbum/Creatinine Ratio Ur 11.6 ug/mg cr; Total Protein Urine Random < 7 mg/dL (<12)
[2022-11-21 14:38] LABS: Anion Gap 12 (12-20); Blood Urea Nitrogen 26 mg/dL (9-16); Calcium 9.6 mg/dL (8.4-10.2); Carbon Dioxide 29 mmol/L (22-29); Chloride 103 mmol/L (96-108); Estimated Glomerular Filt Rate 56; Potassium 4.5 mmol/L (3.3-5.1); Sodium 139 mmol/L (135-145)
== END 2022-11-21 13:01 | disposition home or self-care (01) ==
LOC: HO.LAB 13:00
PROVIDERS: PCP Internal Medicine; Visit Provider Internal Medicine Nephrology
DX: R80.1 Persistent proteinuria, unspecified (principal); I12.9 Hypertensive chronic kidney disease with stage 1 through stage 4 chronic kidney disease, or unspecified chronic kidney disease; E11.22 Type 2 diabetes mellitus with diabetic chronic kidney disease; N18.9 Chronic kidney disease, unspecified; M17.0 Bilateral primary osteoarthritis of knee; M79.7 Fibromyalgia; M25.511 Pain in right shoulder; M25.512 Pain in left shoulder; M25.551 Pain in right hip; M25.552 Pain in left hip; M25.532 Pain in left wrist
CPT/HCPCS: 36415; 80051; 81001; 82043; 82310; 82565; 84156; 84520; 99212

== ENCOUNTER 2022-12-31 15:16 | Outpatient (REF) | payer OTHER, SELFPAY ==
--- NOTE | ~2022-12-31 | XR_ITS ---
EXAMINATION: XR shoulder RT min 2V, XR hip LT min 2V, XR hip RT min 2V, XR shoulder LT min 2V, XR wrist LT 2V CLINICAL INFORMATION: Reason for Exam M25.511 - Pain in right shoulder COMPARISON: None. TECHNIQUE: 2 views of the bilateral shoulders, 2 views of the bilateral hips and 2 views of the left wrist XR/XR hip LT min 2V FINDINGS/IMPRESSION: * Left wrist: No acute fracture or dislocation. Mild degenerative changes of the first CMC joint. * Right hip: Mild osteoarthritis with joint space narrowing and subchondral cystic changes. No acute fracture or dislocation. * Left hip: Moderate osteoarthritis with joint space narrowing and subchondral cystic changes. No acute fracture or dislocation. * Right shoulder: No acute fracture or dislocation. Degenerative changes of the acromioclavicular joint. * Left shoulder: No acute fracture or dislocation. Degenerative changes of the acromioclavicular joint.
--- NOTE | ~2022-12-31 | XR_ITS ---
EXAMINATION: XR shoulder RT min 2V, XR hip LT min 2V, XR hip RT min 2V, XR shoulder LT min 2V, XR wrist LT 2V CLINICAL INFORMATION: Reason for Exam M25.511 - Pain in right shoulder COMPARISON: None. TECHNIQUE: 2 views of the bilateral shoulders, 2 views of the bilateral hips and 2 views of the left wrist XR/XR wrist LT 2V FINDINGS/IMPRESSION: * Left wrist: No acute fracture or dislocation. Mild degenerative changes of the first CMC joint. * Right hip: Mild osteoarthritis with joint space narrowing and subchondral cystic changes. No acute fracture or dislocation. * Left hip: Moderate osteoarthritis with joint space narrowing and subchondral cystic changes. No acute fracture or dislocation. * Right shoulder: No acute fracture or dislocation. Degenerative changes of the acromioclavicular joint. * Left shoulder: No acute fracture or dislocation. Degenerative changes of the acromioclavicular joint.
--- NOTE | ~2022-12-31 | XR_ITS ---
EXAMINATION: XR shoulder RT min 2V, XR hip LT min 2V, XR hip RT min 2V, XR shoulder LT min 2V, XR wrist LT 2V CLINICAL INFORMATION: Reason for Exam M25.511 - Pain in right shoulder COMPARISON: None. TECHNIQUE: 2 views of the bilateral shoulders, 2 views of the bilateral hips and 2 views of the left wrist XR/XR shoulder LT min 2V FINDINGS/IMPRESSION: * Left wrist: No acute fracture or dislocation. Mild degenerative changes of the first CMC joint. * Right hip: Mild osteoarthritis with joint space narrowing and subchondral cystic changes. No acute fracture or dislocation. * Left hip: Moderate osteoarthritis with joint space narrowing and subchondral cystic changes. No acute fracture or dislocation. * Right shoulder: No acute fracture or dislocation. Degenerative changes of the acromioclavicular joint. * Left shoulder: No acute fracture or dislocation. Degenerative changes of the acromioclavicular joint.
--- NOTE | ~2022-12-31 | XR_ITS ---
EXAMINATION: XR shoulder RT min 2V, XR hip LT min 2V, XR hip RT min 2V, XR shoulder LT min 2V, XR wrist LT 2V CLINICAL INFORMATION: Reason for Exam M25.511 - Pain in right shoulder COMPARISON: None. TECHNIQUE: 2 views of the bilateral shoulders, 2 views of the bilateral hips and 2 views of the left wrist XR/XR shoulder RT min 2V FINDINGS/IMPRESSION: * Left wrist: No acute fracture or dislocation. Mild degenerative changes of the first CMC joint. * Right hip: Mild osteoarthritis with joint space narrowing and subchondral cystic changes. No acute fracture or dislocation. * Left hip: Moderate osteoarthritis with joint space narrowing and subchondral cystic changes. No acute fracture or dislocation. * Right shoulder: No acute fracture or dislocation. Degenerative changes of the acromioclavicular joint. * Left shoulder: No acute fracture or dislocation. Degenerative changes of the acromioclavicular joint.
--- NOTE | ~2022-12-31 | XR_ITS ---
EXAMINATION: XR shoulder RT min 2V, XR hip LT min 2V, XR hip RT min 2V, XR shoulder LT min 2V, XR wrist LT 2V CLINICAL INFORMATION: Reason for Exam M25.511 - Pain in right shoulder COMPARISON: None. TECHNIQUE: 2 views of the bilateral shoulders, 2 views of the bilateral hips and 2 views of the left wrist XR/XR hip RT min 2V FINDINGS/IMPRESSION: * Left wrist: No acute fracture or dislocation. Mild degenerative changes of the first CMC joint. * Right hip: Mild osteoarthritis with joint space narrowing and subchondral cystic changes. No acute fracture or dislocation. * Left hip: Moderate osteoarthritis with joint space narrowing and subchondral cystic changes. No acute fracture or dislocation. * Right shoulder: No acute fracture or dislocation. Degenerative changes of the acromioclavicular joint. * Left shoulder: No acute fracture or dislocation. Degenerative changes of the acromioclavicular joint.
== END 2022-12-31 15:17 | disposition home or self-care (01) ==
LOC: HO.XRAY 15:16
PROVIDERS: PCP Internal Medicine; Visit Provider Nurse Practitioner Family
DX: M25.511 Pain in right shoulder (principal); M25.512 Pain in left shoulder; M25.532 Pain in left wrist; M25.551 Pain in right hip; M25.552 Pain in left hip
CPT/HCPCS: 73030; 73100; 73502

== ENCOUNTER 2023-01-02 13:44 | Outpatient (REF) | payer OTHER, SELFPAY ==
[2023-01-02 15:50] LABS: Erythrocyte Sedimentation Rate 51 MM/HR (0-20)
[2023-01-02 16:31] LABS: Creatinine Urine 75.73 mg/dL; Microalbum/Creatinine Ratio Ur 22.4 ug/mg cr
[2023-01-02 16:36] LABS: Anion Gap 13 (12-20); Blood Urea Nitrogen 21 mg/dL (9-16); C Reactive Protein 0.69 mg/dL (< or = 0.50); Calcium 9.6 mg/dL (8.4-10.2); Carbon Dioxide 30 mmol/L (22-29); Chloride 102 mmol/L (96-108); Cholesterol 165 mg/dL; Estimated Glomerular Filt Rate > 60; Glucose Random 76 mg/dL (60-115); HDL Cholesterol 35 mg/dL; LDL Cholesterol Calculated 83 mg/dl; Potassium 4.5 mmol/L (3.3-5.1); Sodium 140 mmol/L (135-145); Triglycerides 237 mg/dL
== END 2023-01-02 13:45 | disposition home or self-care (01) ==
LOC: HO.LAB 13:44
PROVIDERS: Internal Medicine Endocrinology, Diabetes & Metabolism; PCP Internal Medicine; Visit Provider Nurse Practitioner Family
DX: M17.0 Bilateral primary osteoarthritis of knee (principal); M19.042 Primary osteoarthritis, left hand; M19.041 Primary osteoarthritis, right hand; M79.7 Fibromyalgia; M25.511 Pain in right shoulder; M25.512 Pain in left shoulder; M25.551 Pain in right hip; M25.552 Pain in left hip; M25.532 Pain in left wrist; E11.42 Type 2 diabetes mellitus with diabetic polyneuropathy; R20.0 Anesthesia of skin; R20.2 Paresthesia of skin; Z79.899 Other long term (current) drug therapy; Z79.4 Long term (current) use of insulin; Z79.84 Long term (current) use of oral hypoglycemic drugs
CPT/HCPCS: 36415; 80048; 80061; 82043; 82550; 85652; 86140; 99212

== ENCOUNTER 2023-01-31 07:53 | Outpatient (REF) | payer OTHER, SELFPAY ==
--- NOTE | 2023-01-31 07:58 | EMG_ITS ---
Bilateral median and ulnar motor and sensory studies were performed. Bilateral radial sensory studies were performed and paraspinal muscles were tested with a needle. IMPRESSION: 1. [id number] bilateral median neuropathy across carpal tunnel. 2. Mild bilateral ulnar neuropathy across cubital tunnel. MD ROSSANA Mayers/MELISSA / [id number]
== END 2023-01-31 07:54 | disposition home or self-care (01) ==
LOC: HO.NEURO 07:53
PROVIDERS: PCP Internal Medicine; Visit Provider Nurse Practitioner Family
DX: R20.0 Anesthesia of skin (principal); R20.2 Paresthesia of skin
CPT/HCPCS: 95886; 95911

== ENCOUNTER → 2023-02-27 13:12 | Outpatient (BNVA) | payer OTHER, SELFPAY | PROVIDERS: PCP Internal Medicine; Visit Provider Orthopaedic Surgery | DX: G56.03 Carpal tunnel syndrome, bilateral upper limbs (principal); G56.23 Lesion of ulnar nerve, bilateral upper limbs; E11.42 Type 2 diabetes mellitus with diabetic polyneuropathy; Z79.4 Long term (current) use of insulin | CPT/HCPCS: 99212 ==

== ENCOUNTER 2023-03-08 11:17 | Outpatient (REF) | payer OTHER, SELFPAY ==
[2023-03-08 11:50] LABS: Estimated Average Glucose 131 mg/dL; Hemoglobin A1C 148.4415 umol/L; Hemoglobin A1c % 6.2 %
== END 2023-03-08 11:18 | disposition home or self-care (01) ==
LOC: HO.LNP 11:17
PROVIDERS: PCP Internal Medicine; Visit Provider Internal Medicine
DX: E11.40 Type 2 diabetes mellitus with diabetic neuropathy, unspecified (principal)
CPT/HCPCS: 83036

== ENCOUNTER → 2023-03-21 12:17 | Outpatient (BNVA) | payer OTHER, SELFPAY | PROVIDERS: PCP Internal Medicine; Visit Provider Internal Medicine Endocrinology, Diabetes & Metabolism | DX: E11.42 Type 2 diabetes mellitus with diabetic polyneuropathy (principal); Z79.4 Long term (current) use of insulin | CPT/HCPCS: 82947; 99212 ==

== ENCOUNTER → 2023-04-03 09:58 | Outpatient (REF) | payer OTHER, SELFPAY ==
--- NOTE | 2023-04-03 10:09 | ECG_ITS ---
Test Reason : preop Blood Pressure : / mmHG Vent. Rate : 068 BPM Atrial Rate : 068 BPM P-R Int : 188 ms QRS Dur : 090 ms QT Int : 390 ms P-R-T Axes : 043 049 059 degrees QTc Int : 414 ms Sinus rhythm with occasional Premature ventricular complexes Otherwise normal ECG When compared with ECG of 18-OCT-2022 13:44, Premature ventricular complexes are now Present Referred By: Mal Yin Electronically Signed By:ILIANA SANTIAGO MD
== END ==
LOC: HO.CARD 09:58
PROVIDERS: PCP Internal Medicine; Visit Provider Internal Medicine
DX: Z01.818 Encounter for other preprocedural examination (principal)
CPT/HCPCS: 93005

== ENCOUNTER → 2023-04-30 12:48 | Outpatient (BNVA) | payer OTHER, SELFPAY | PROVIDERS: PCP Internal Medicine; Visit Provider Orthopaedic Surgery | DX: G56.03 Carpal tunnel syndrome, bilateral upper limbs (principal); G56.23 Lesion of ulnar nerve, bilateral upper limbs; E11.42 Type 2 diabetes mellitus with diabetic polyneuropathy; Z79.4 Long term (current) use of insulin | CPT/HCPCS: 99212 ==

== ENCOUNTER 2023-05-02 06:05 | Day surgery (SDC) | payer OTHER, SELFPAY ==
--- NOTE | 2023-05-01 09:11 | HO.ANESPROP2 ---
HPI - Anesthesia Eval Consult details Narrative: 62yo F for Left Cubital Tunnel Release verses transposition, Carpal Tunnel Release Medically optimized Hx ETOH abuse PMFSH Active Problems Active Problems: All Active Problems (Updated 02/27/23 @ 13:51 by Ming Ashraf) Cubital tunnel syndrome, bilateral (Acute) Bilateral carpal tunnel syndrome (Acute) Encounter for screening mammogram for malignant neoplasm of breast (Acute) Encounter for annual routine gynecological examination (Acute) Chronic constipation (Acute) Gastroparesis (Acute) Osteoarthritis of left ankle (Acute) Proteinuria (Acute) Nausea (Acute) Fibromyalgia (Acute) Primary osteoarthritis of knees, bilateral (Acute) Type 2 diabetes mellitus with diabetic polyneuropathy (Acute) Essential hypertension (Acute) Hyperlipidemia LDL goal <70 (Acute) Obesity with body mass index of 30.0-39.9 (Acute) NAFLD (nonalcoholic fatty liver disease) (Acute) Past Medical History Medical History Anxiety Chronic constipation Depression Essential hypertension Fibromyalgia Fibromyalgia Hepatomegaly History of alcohol abuse Hyperlipidemia LDL goal <70 NAFLD (nonalcoholic fatty liver disease) Neuropathy Obesity with body mass index of 30.0-39.9 DARIEL on CPAP Osteoarthritis Primary osteoarthritis of knees, bilateral Stroke Tubular adenoma of colon Type 2 diabetes mellitus with diabetic polyneuropathy Upper GI bleed Urinary incontinence Family History Family History Father Diabetes Mother Hypertension Daughter Breast cancer Ovarian cancer Surgical History Surgical History History of temporal artery biopsy Hx of colonoscopy Hx of esophagogastroduodenoscopy Social History Social History Household Members: Family Household Members Other:: adult child and grandchild Alcohol intake: former Patient Tobacco Use Status: Former Tobacco user Years Smoked: quit 10 years ago Current occupational status: disabled Current occupation: rt handed Meds Allergies Allergy/AdvReac Type Severity Reaction Status Date / Time GEL ELECTRODES Allergy Mild RASH Uncoded 05/15/23 14:44 Home Medications Medication Instructions Recorded Confirmed Last Taken Type atenolol 50 mg tablet 50 mg PO DAILY 10/12/20 04/29/23 Unknown History alcohol swabs pad topical 11/01/20 01/02/23 Unknown History ferrous sulfate 325 mg (65 mg 325 mg PO DAILY 11/01/20 04/29/23 Unknown History iron) tablet pen needle, diabetic 32 gauge x #50 ea 11/01/20 01/02/23 Unknown History aspirin 81 mg tablet,delayed 81 mg PO DAILY 12/27/20 04/29/23 Unknown History release cholecalciferol (vitamin D3) 50 50 mcg PO DAILY 02/07/21 04/29/23 Unknown History mcg (2,000 unit) tablet acetaminophen 500 mg tablet 500 mg PO Q6H PRN Pain 11/21/21 04/29/23 Unknown History (Tylenol Extra Strength) triamcinolone acetonide 0.1 % 1 appl topical DAILY 12/14/21 04/29/23 Unknown History topical cream amlodipine 2.5 mg tablet 2.5 mg PO DAILY 03/20/22 04/29/23 Unknown History Exam Exam Date and Time: May 01, 2023 0911 Pertinent Lab Results Pertinent Lab Results: Laboratory Tests 11/01/22 01/02/23 09:00 14:46 WBC 8.0 Hgb 11.9 L Hct 37.1 Plt Count 146 L Sodium 140 Potassium 4.5 Chloride 102 Carbon Dioxide 30 H BUN 21 H Creatinine 0.83 Narrative Narrative: EKG Vent. Rate : 068 BPM ? ? Atrial Rate : 068 BPM ?? P-R Int : 188 ms? QRS Dur : 090 ms ? ? QT Int : 390 ms ? ? ? P-R-T Axes : 043 049 059 degrees ?? QTc Int : 414 ms ? Sinus rhythm with occasional Premature ventricular complexes Otherwise normal ECG When compared with ECG of 18-OCT-2022 13:44, Premature ventricular complexes are now Present Assessment and Plan Assessment Anesthesia Assessment: Chart Reviewed
[2023-05-02] VITALS (7 sets, daily range): BP systolic 150–162; BP diastolic 71–80; PULSE 72–77; RESP 15–18; TEMP 36.2–36.4; O2SAT 94–100
[2023-05-02 06:39] LABS: Glucose, Whole Blood 150 mg/dL (60-115)
--- NOTE | 2023-05-02 09:35 | MHC.SHP ---
Pre-Procedural Eval Section A Date of Service: 05/02/23 The patient is an INPATIENT: No Changes since office visit: No Cold of Flu in the past 2 weeks, No New Medical Problems, No Changes in Medication and No Patient answered all questions The History & Physical has been completed within 30 days and I have reviewed it.: Yes Section B Chief Complaint: Carpal tunnel syndrome, Lesion of ulnar nerve, Allergies: Allergies Allergy/AdvReac Type Severity Reaction Status Date / Time GEL ELECTRODES Allergy Mild RASH Uncoded 04/30/23 13:19 Plan I have reviewed the history and physical and performed a pertinent physical examination on my patient. No changes have occurred unless specified. Time Spent With Patient Time: Total time managing care of this patient today ____ minutes.
--- NOTE | 2023-05-02 09:35 | W.PM.OPN ---
Operative Note Operative Note Date of Service: 05/02/23 Narrative: Operative Note Narrative: Preop diagnosis: 1. Left Cubital tunnel syndrome 2. Left carpal tunnel syndrome Postop diagnosis: Same Procedure: 1. Left Cubital Tunnel Release 2. Left carpal tunnel release Surgeon: Ria Peterson MD Anesthesia: General Anesthesia Findings: Thickening and fibrosis about the ulnar nerve at the cubital tunnel, with an hourglass deformity of the ulnar nerve. Implants: none Tourniquet time: 46 minutes EBL: 5.0 ml Specimen: none Drains: None Complications: None Disposition: Brought to the recovery room in stable condition Plan: Follow-up in 10-14 days for wound check, and suture removal Indications: The patient is 62 years old with left cubital tunnel syndrome and left carpal tunnel syndrome . The risks and benefits of operative treatment, including but not limited to risk of damage to blood vessels, nerves, tendons, infection, recurrence, persistent pain or numbness, incomplete resolution of preoperative symptoms, or need for further surgery were discussed with the patient and they wished to proceed with surgery. Procedure: Once consent was obtained patient was brought back to the operating suite and placed in the operating table in a supine position. Perioperative antibiotics and anesthesia was administered by the anesthesia team. The limb was prepped and draped in a standard surgical fashion, and a sterile tourniquet applied to the proximal aspect of the left upper extremity. The limb was elevated exsanguinated with Esmarch bandage and the tourniquet inflated to 250 mm of mercury for a total tourniquet time of 45 minutes. Once assured that we had a good block, a 2.0 cm longitudinal incision was made centered over the left carpal tunnel. The incision was made through the skin to the subcutaneous tissues using a #15 blade. Dissection was made down to the level of the transverse carpal ligament with care being taken to protect the palmar cutaneous nerve. Once the transverse carpal ligament was clearly visualized, a longitudinal incision was made in the transverse carpal ligament 1st using a #15 blade, then using tenotomy scissors under direct visualization. Care was taken to look for and protect the motor branch of the median nerve when seen in this area. Once satisfied with our carpal tunnel release the wound was irrigated with normal saline. A 6 cm gently curved but longitudinally oriented incision was made centered over the cubital tunnel of the left upper extremity. Incision was made through the skin to the subcutaneous tissues using a # 15 Blade. I then dissected down to the level of the medial epicondyle and the cubital tunnel using tenotomy scissors. Care was taken to protect the lateral antebrachial cutaneous nerve. The ulnar nerve was identified just posterior to the medial intermuscular septum. The ulnar nerve was released in a proximal to distal direction using tenotomy in iris scissors while directly visualizing and protecting the ulnar nerve. Thickening and fibrosis was appreciated about the ulnar nerve as it passed through the cubital tunnel. The ulnar nerve was assessed as I passed the elbow through full flexion and extension and was found to remain stable within its groove. At this point the tourniquet was deflated and hemostasis obtained with a brief period of local pressure and bipolar electrocautery. The wound was copiously irrigated with normal saline. The subcutaneous layer was closed with 4-0 Vicryl suture, and the skin edges were reapproximated with 5-0 nylon suture. The wound was infiltrated with some 0.25% plain Marcaine for postop pain control and sterile dressings and a posterior splint was applied. The patient appears to have tolerated the procedure well and with no complications. All digits were well vascularized conclusion of the case.
== END 2023-05-02 10:53 | disposition home or self-care (01) ==
PROVIDERS: PCP Internal Medicine; Visit Provider Orthopaedic Surgery
PROC: (CPT 64718; principal; 2023-05-02 07:30)
PROC: (CPT 64721; 2023-05-02 07:30)
DX: G56.02 Carpal tunnel syndrome, left upper limb (principal); G56.22 Lesion of ulnar nerve, left upper limb; E11.42 Type 2 diabetes mellitus with diabetic polyneuropathy; I10 Essential (primary) hypertension; Z86.73 Personal history of transient ischemic attack (TIA), and cerebral infarction without residual deficits; Z79.4 Long term (current) use of insulin
CPT/HCPCS: 64721; 64718; 82947; J0690; J1100; J2250; J2370; J2405; J2795; J3010

== ENCOUNTER → 2023-05-15 14:19 | Outpatient (BNVA) | payer OTHER, SELFPAY | PROVIDERS: Visit Provider Orthopaedic Surgery ==

== ENCOUNTER 2023-06-03 12:48 | Outpatient (AMB) | payer OTHER, SELFPAY ==
--- NOTE | 2023-06-03 13:17 | A.OFFVIS_ITS ---
Intake Intake Visit Reasons: New prob- Lt shoulder pain Intake Note: Delaney is a 62 year old right hand dominant female who presents today for a new problem visit with complaints of left shoulder pain. States both shoulder are as bad but her left shoulder is worse. States pain strated about 1 yr ago , no injury she can recall. States she is limited ROM, stiffness, radiating sharp pain to her neck and bicep. Has a grinding sensation in her shoulder with movement and at rest position. Hx of left CTR from 05/02/23. Allergies GEL ELECTRODES Allergy (Mild, Uncoded 06/03/23 13:22) RASH HPI New prob- Lt shoulder pain HPI Details Delaney is a 62 year old Diabetic woman who presents with complaints of left shoulder pain. She complains of pain constantly , worse with overhead activity and at night. She says her pain began ~1 year ago. she reports a Hx of LE neuropathy, and finds when she sits or lies down with her feet elevated she fees numbness in her legs and some pain in her lower back and buttocks. [facility] Medical History Anxiety Chronic constipation Depression Essential hypertension Fibromyalgia Fibromyalgia Hepatomegaly History of alcohol abuse Hyperlipidemia LDL goal <70 NAFLD (nonalcoholic fatty liver disease) Neuropathy Obesity with body mass index of 30.0-39.9 DARIEL on CPAP Osteoarthritis Primary osteoarthritis of knees, bilateral Stroke Tubular adenoma of colon Type 2 diabetes mellitus with diabetic polyneuropathy Upper GI bleed Urinary incontinence Surgical History History of temporal artery biopsy Hx of colonoscopy Hx of esophagogastroduodenoscopy Family History Father Diabetes Mother Hypertension Daughter Breast cancer Ovarian cancer Social History Household Members: Family Household Members Other:: adult child and grandchild Alcohol intake: former Patient Tobacco Use Status: Former Tobacco user Years Smoked: quit 10 years ago Current occupational status: disabled Current occupation: rt handed Review of Systems Const All systems reviewed & are unremarkable except as noted in HPI and below Physical Exam Const General: no acute distress, alert and awake Orientation/consciousness: patient oriented x3 HEENT Head: Yes normocephalic and Yes atraumatic Eyes EOM: EOMs intact bilaterally Resp Effort & Inspection: normal respiratory effort and able to speak in complete sentences Cardio Jugular venous distension: no JVD Skin General skin exam: turgor normal Rashes: no rashes Neuro General: patient oriented x3 Extrem Other: Left Shoulder: + H&N - empty can Full ROM Psych Appearance: grossly normal Affect: normal affect Attitude: cooperative Office Procedures Joint Injection/Drain Joint Injection/Drain Details: Injected 1 mL of Decadron and 3 mL 1% lidocaine and 3 mL of 0.25% Marcaine. Site was prepped using aseptic technique. Patient tolerated the procedure well. Primary Site: left shoulder Approach Used: posterolateral Coding 57925 - Large joint Procedure code (CPT) selection complete Results Reviewed Results Reviewed: 06/03/23 13:36 BUPivacaine MPF 0.25 % [Sensorcaine-MPF 0.25% 10 ML] 10 ml .ROUTE .STK-MED ONE Lidocaine HCl 2 % MPF [Xylocaine 2 % MPF] 5 ml .ROUTE .STK-MED ONE dexAMETHasone sod phosphate [Decadron] 4 mg .ROUTE .STK-MED ONE I personally reviewed relevant radiographs. Unremarkable left shoulder Assessment & Plan Assessment & Plan (1) Impingement syndrome, shoulder, left: Code(s): M75.42 - Impingement syndrome of left shoulder Plan: This is a 62 year old woman with left shoulder impingement. She has pain with daily activity, worse with overhead activity and at night. She denies any prior treatment. I discussed her diagnosis and treatment options. I injected her left shoulder today, which she tolerated well, and recommend she work on nadege- scapular strengthening exercises at home. (2) Type 2 diabetes mellitus with diabetic polyneuropathy: Code(s): E11.42 - Type 2 diabetes mellitus with diabetic polyneuropathy Qualifiers: Diabetes mellitus senior living insulin use: with termite helper use Qualified Code(s): E11.42 - Type 2 diabetes mellitus with diabetic polyneuropathy; Z79.4 - correction (current) use of insulin Plan: I discussed the hypergycemic effects of steroid injections (3) Numbness and tingling of both legs: Code(s): R20.0 - Anesthesia of skin; R20.2 - Paresthesia of skin Plan: I referred her to Dr. Oneill in Pain Management for assessment. Plan Scribed for Casey Maloney MD by Ming Ashraf, medical imaging tech, on 06/03/23 at 1:35 PM, EST. Orders: Referrals Pain Management Referral R20.0 - Anesthesia of skin, R20.2 - Paresthesia of skin Coding Level of Care Code Est Pt Level 4 (47059) Diagnoses Impingement syndrome, shoulder, left M75.42 Type 2 diabetes mellitus with diabetic polyneuropathy E11.42; Z79.4 Diabetes mellitus senior living insulin use: with termite helper use Numbness and tingling of both legs R20.0; R20.2 CPT Codes Coding - 37655 Large joint: 20238 - Large joint ([id number])
== END 2023-06-03 13:48 | disposition home or self-care (01) ==
PROVIDERS: PCP Internal Medicine; Visit Provider Orthopaedic Surgery
DX: M75.42 Impingement syndrome of left shoulder (principal); R20.0 Anesthesia of skin; R20.2 Paresthesia of skin
CPT/HCPCS: 20610; 99214

== ENCOUNTER → 2023-06-03 12:48 | Outpatient (BNVA) | payer OTHER, SELFPAY | PROVIDERS: PCP Internal Medicine; Visit Provider Orthopaedic Surgery | DX: M75.42 Impingement syndrome of left shoulder (principal); R20.0 Anesthesia of skin; R20.2 Paresthesia of skin; M79.7 Fibromyalgia; E11.42 Type 2 diabetes mellitus with diabetic polyneuropathy; Z79.4 Long term (current) use of insulin | CPT/HCPCS: 20610; 99212; J1100 ==

== ENCOUNTER 2023-06-17 11:42 | Outpatient (AMB) | payer OTHER, SELFPAY ==
--- NOTE | 2023-06-17 11:46 | A.OFFVIS_ITS ---
Intake Vital Signs 06/17/23 11:47 Height 5 ft Weight 190 lb BMI 37.1 BP 147/63 H Blood Pressure Location Rt brachial Position Sitting Respiration 14 Pulse 72 Pulse Source Pulse Oximeter Pulse Oximetry (%) 98 Oxygen Delivery Method Room Air Intake Visit Reasons: Anesthesia/Paresthesia of skin Allergies GEL ELECTRODES Allergy (Mild, Uncoded 06/17/23 11:49) RASH Medication List - Last Reconciled 06/17/23 by Monica Brock LPN acetaminophen (Tylenol Extra Strength) 500 mg PO Q6H PRN alcohol swabs pad topical amlodipine 2.5 mg PO DAILY aspirin 81 mg PO DAILY atenolol 50 mg PO DAILY atorvastatin 40 mg PO DAILY blood sugar diagnostic (FreeStyle Lite Strips) As directed four times a day canagliflozin (Invokana) 300 mg PO DAILY cholecalciferol (vitamin D3) 50 mcg PO DAILY dulaglutide (Trulicity) 0.75 mg (0.5 mL) subcut QWEEK ferrous sulfate 325 mg PO DAILY flash glucose scanning reader (LK FREEMANStyle Marty 2 [place]) As directed flash glucose sensor (FreeStyle Marty 2 Sensor kit) As directed change every 14 days glucagon 3 mg/actuation (Baqsimi) 3 mg intranasal ONCE insulin glargine (Lantus Solostar U-100 Insulin) 50 units (0.5 mL) subcut DAILY insulin lispro (Admelog SoloStar U-100 Insulin lispro) 15 u for small meals, 15 u for large, + 2 units for bg>200, + 3 units for BG >250, + 4 units bg >300mg/dl. Of note..for very light meal use only 6 units. subcut 3 times a day; 30 days lisinopril 40 mg PO DAILY metformin 1,000 mg (2 x 500 mg) PO BID omeprazole 40 mg PO DAILY pen needle, diabetic As directed pregabalin 100 mg PO BID triamcinolone acetonide 0.1% 1 appl topical DAILY HPI Anesthesia/Paresthesia of skin HPI Details 62-year-old female is presenting today for a new patient evaluation of paresthesia of the skin.? The patient was referred by Dr. Maloney. She reports left shoulder pain. She reports pain in both shoulders, but her left shoulder is worse. The pain started about a year ago. She denies any injury. She has limited ROM, stiffness, and constant, sharp, radiating pain in her neck and biceps. She has pain with daily activity, which is worse with overhead activity and at night. She has a grinding sensation in her shoulder with movement and at rest. She had left carpal tunnel release & cubital tunnel release on 05/02/23. She had a left shoulder injection on 06/03/[address] Maloney, which provided relief for one day. The patient had physical therapy for the ankle with minimal benefits. She tried home exercises for her back and shoulders but did not tolerate them well. She is currently taking Tylenol P.R.N. for pain management. She states that her diabetes mellitus is well controlled. She is monitoring the blood sugar readings at home. ? She reports a history of lower extremities neuropathy and finds that when she sits or lies down with her feet elevated, she feels numbness in her legs and some pain in her lower back and buttocks. [facility] Medical History (Updated 06/18/23 @ 12:30 by Dev Oneill MD) Anxiety Chronic constipation Depression Essential hypertension Fibromyalgia Fibromyalgia Hepatomegaly History of alcohol abuse Hyperlipidemia LDL goal <70 NAFLD (nonalcoholic fatty liver disease) Neuropathy Obesity with body mass index of 30.0-39.9 DARIEL on CPAP Osteoarthritis Primary osteoarthritis of knees, bilateral Stroke Tubular adenoma of colon Type 2 diabetes mellitus with diabetic polyneuropathy Upper GI bleed Urinary incontinence Surgical History History of temporal artery biopsy Hx of colonoscopy Hx of esophagogastroduodenoscopy Family History Father Diabetes Mother Hypertension Daughter Breast cancer Ovarian cancer Social History Household Members: Family Household Members Other:: adult child and grandchild Alcohol intake: former Patient Tobacco Use Status: Former Tobacco user Years Smoked: quit 10 years ago Current occupational status: disabled Current occupation: rt handed Review of Systems Const All systems reviewed & are unremarkable except as noted in HPI and below Physical Exam Vital Signs: Last Vital Signs Pulse 72 06/17/23 11:47 Resp 14 06/17/23 11:47 BP 147/63 H 06/17/23 11:47 Pulse Ox 98 06/17/23 11:47 Oxygen Delivery Method Room Air 06/17/23 11:47 BMI result Body Mass Index 37.1 General: Appears afebrile. Alert and oriented. Mood and affect appropriate. Follows and participates in conversation appropriately. Respiratory effort is unlabored. Able to transition from sit to stand unassisted. Ambulates with bilaterally normal heel strike and toe off. Office Procedures Joint Injection/Drain Joint Injection/Drain Details: Bilateral acromioclavicular joint injection Primary Site: right shoulder Secondary Site: left shoulder Prep: site was prepped using sterile technique Injected: 20 mg of (at each side, bilaterally), Kenalog, with 1 mL of (bupivacaine 0.5%) and in the joint Approach Used: anterior Procedure: The patient tolerated the procedure well Coding 62427 - Acromioclavicular with ultrasound guidance Procedure code (CPT) selection complete Nerve Block Details: Right diagnostic infrapatellar saphenous nerve block After obtaining written consent, pre-procedure blood pressure and heart rate were stable and recorded in the nursing record. The patient was placed supine on the table. Using ultrasound, the appropriate landmarks inferior to the medial tibial condyle were identified. A 25 gauge 1.5 in needle was advanced under sonographic guidance to the infrapatellar saphenous nerve. Aspiration was negative for heme and synovial fluid. 4 cc of bupivacaine 0.5% was injected. The needle was removed, skin cleansed and a sterile bandage was applied. The patient tolerated the procedure well and no complications were encountered. Following the procedure the patient's vital signs and knee strength were stable. The patient was discharged home in good condition with post-procedural instructions. Time Out: Immediately prior to the procedure, the following was verbally confirmed that there is a signed consent form and that the correct patient, planned procedure, site and side are consistent with documentation and that necessary equipment and/or blood products are available prior to the start of the case. Complications: none EBL: <1 cc. 47596 - Saphenous (Right infrapatellar) Procedure code (CPT) selection complete Results Reviewed Results Reviewed: 12/31/22: XR shoulder RT min 2V, XR hip LT min 2V, XR hip RT min 2V, XR shoulder. LT min 2V, XR wrist LT 2V FINDINGS/IMPRESSION: * Left wrist: No acute fracture or dislocation. Mild degenerative changes of the first CMC joint. * Right hip: Mild osteoarthritis with joint space narrowing and subchondral cystic changes. No acute fracture or dislocation. * Left hip: Moderate osteoarthritis with joint space narrowing and subchondral cystic changes. No acute fracture or dislocation. * Right shoulder: No acute fracture or dislocation. Degenerative changes of the acromioclavicular joint. * Left shoulder: No acute fracture or dislocation. Degenerative changes of the acromioclavicular joint. Assessment & Plan Assessment & Plan (1) Acromioclavicular joint arthritis: Code(s): M19.019 - Primary osteoarthritis, unspecified shoulder (2) Primary osteoarthritis of knees, bilateral: Comment: bilateral knee pain Code(s): M17.0 - Bilateral primary osteoarthritis of knee Plan 62-year-old female presenting with history of bilateral shoulder pain secondary to bilateral AC joint osteoarthritis as well as right medial knee pain associated with numbness and paresthesias. She is status post bilateral AC joint injections and a right diagnostic infrapatellar saphenous nerve block in the office today. Patient tolerated procedure well and was discharged home in stable condition with discharge instructions. I counseled her to monitor her blood glucose levels and adjust her insulin dose accordingly following the injection of triamcinolone. All questions were answered. We will follow-up in 4 weeks to assess response to therapy and proceed accordingly with further steps. Scribed for Dr. Oneill by Johnnie Flores, director of medical staff services, on 06/17/2023. I, Dr. Oneill, have personally reviewed and agree with the information entered by the scribe. Coding Level of Care Code New Pt Level 4 (42714) Diagnoses Acromioclavicular joint arthritis M19.019 Primary osteoarthritis of knees, bilateral M17.0 CPT Codes Coding - Joint 6: 24347 - Acromioclavicular with ultrasound guidance ([id number]) Nerve Block - Nerve Block 10: 97527 - Saphenous ([id number])
[2023-06-17 11:47] VITALS: BP 147/63; PULSE 72; RESP 14; O2SAT 98; BMI 37.1
== END 2023-06-17 12:30 | disposition home or self-care (01) ==
PROVIDERS: PCP Internal Medicine; Visit Provider Internal Medicine
DX: M19.019 Primary osteoarthritis, unspecified shoulder (principal); M17.0 Bilateral primary osteoarthritis of knee
CPT/HCPCS: 20606; 64450; 99204

== ENCOUNTER → 2023-06-17 11:42 | Outpatient (BNVA) | payer OTHER, SELFPAY | PROVIDERS: PCP Internal Medicine; Visit Provider Internal Medicine | DX: R20.0 Anesthesia of skin (principal); R20.2 Paresthesia of skin; M25.512 Pain in left shoulder; M19.011 Primary osteoarthritis, right shoulder; M19.012 Primary osteoarthritis, left shoulder; M79.7 Fibromyalgia | CPT/HCPCS: 20606; 64450; 99202 ==

== ENCOUNTER 2023-06-20 12:15 | Outpatient (AMB) | payer OTHER, SELFPAY ==
--- NOTE | 2023-06-20 12:26 | MHC.OFFVIS ---
Intake Vital Signs 06/20/23 12:37 Height 5 ft Weight 180 lb 12.465 oz BMI 35.3 BP 120/48 L Blood Pressure Location Lt brachial Position Sitting Pulse 67 Pulse Source Pulse Oximeter Intake Visit Reasons: f/u Type 2 DM Intake Note: Patient present today to follow up on Type 2 Diabetes Mellitus. Patient receives DME supplies through: Pharmacy Last Diabetic Eye exam: 2021 Last Podiatry Visit: None Random Glucose: 140mg/dl HgA1C: 6.6% Lockstitch Zipper Setter Required: No Accompanied by: Daughter Allergies GEL ELECTRODES Allergy (Mild, Uncoded 06/17/23 11:49) RASH Medication List - Last Reconciled 06/20/23 by Dudley Wray MD acetaminophen (Tylenol Extra Strength) 500 mg PO Q6H PRN alcohol swabs pad topical amlodipine 2.5 mg PO DAILY aspirin 81 mg PO DAILY atenolol 50 mg PO DAILY atorvastatin 40 mg PO DAILY blood sugar diagnostic (FreeStyle Lite Strips) As directed four times a day canagliflozin (Invokana) 300 mg PO DAILY cholecalciferol (vitamin D3) 50 mcg PO DAILY dulaglutide (Trulicity) 0.75 mg (0.5 mL) subcut QWEEK ferrous sulfate 325 mg PO DAILY flash glucose scanning reader (FreeStyle Marty 2 [place]) As directed flash glucose sensor (FreeStyle Marty 2 Sensor kit) As directed change every 14 days glucagon 3 mg/actuation (Baqsimi) 3 mg intranasal ONCE insulin glargine (Lantus Solostar U-100 Insulin) 50 units (0.5 mL) subcut DAILY insulin lispro (Admelog SoloStar U-100 Insulin lispro) 15 u for small meals, 15 u for large, + 2 units for bg>200, + 3 units for BG >250, + 4 units bg >300mg/dl. Of note..for very light meal use only 6 units. subcut 3 times a day; 30 days lisinopril 40 mg PO DAILY metformin 1,000 mg (2 x 500 mg) PO BID omeprazole 40 mg PO DAILY pen needle, diabetic As directed pregabalin 100 mg PO BID triamcinolone acetonide 0.1% 1 appl topical DAILY HPI HPI Comments History of Present Illness Details Patient is a 62 yo female with DM type 2 diagnosed 2009, who presents for visit for follow up management of diabetes . Past medical history: HTN, HLD. fibromyalgia, ostearthritis, DARIEL, neuropathy Micro and macrovascular complications: +neuropathy, +CVA, +PVD. Diabetes medications: Trulicity 0.75 mg qwkly ., Lantus 50 units , Humalog 6 units for very light meal such as salad and meat. 15 units for small meals and 14 units for large meals, with a correction of plus 2 units for blood sugars over 200, +3 units for blood sugars over 250 and plus 5 units for blood sugars over 300, metformin 1000 mg 1 tablet twice a day. Invokana 300mg daily, metformin 1000 mg BID Blood glucose monitoring: Marty download shows she is using the sensor 85% of the time. Average glucose 137 with G mi of 6.6% and variability 32.6% glucose is in target range 79% of the time with 20% hyperglycemia and 3% hypoglycemia. Hypoglycemia is occurring primarily after dinner Symptoms reported: + numbness, tingling, cramping in toes and hands. Hypoglycemia: happens daily Symptoms of shakiness and sweatiness. 4 oz of juice or 2 tb sugar. Hyperglycemia: + urinary frequency, + nocturia (2x) , denies polydypsia Exercise: limited due to being ill Eye exam: has appt 08/2023 , denies retinopathy Laboratory Tests 10/17/21 10/17/21 10/17/21 09:05 09:05 09:05 Creatinine Estimated GFR Hemoglobin A1c % 8.7 Triglycerides 152 Cholesterol 152 LDL Cholesterol, C alc 86 HDL Cholesterol 36 25-OH Vitamin D To david 27.5 Microalb/Creat Rat io 841.6 10/17/21 Unknown Creatinine 0.81 Estimated GFR > 60 Hemoglobin A1c % Triglycerides Cholesterol LDL Cholesterol, C alc HDL Cholesterol 25-OH Vitamin D To david Microalb/Creat Rat io [facility] Medical History (Updated 06/18/23 @ 12:30 by Dev Oneill MD) Anxiety Chronic constipation Depression Essential hypertension Fibromyalgia Fibromyalgia Hepatomegaly History of alcohol abuse Hyperlipidemia LDL goal <70 NAFLD (nonalcoholic fatty liver disease) Neuropathy Obesity with body mass index of 30.0-39.9 DARIEL on CPAP Osteoarthritis Primary osteoarthritis of knees, bilateral Stroke Tubular adenoma of colon Type 2 diabetes mellitus with diabetic polyneuropathy Upper GI bleed Urinary incontinence Surgical History History of temporal artery biopsy Hx of colonoscopy Hx of esophagogastroduodenoscopy Family History Father Diabetes Mother Hypertension Daughter Breast cancer Ovarian cancer Social History Household Members: Family Household Members Other:: adult child and grandchild Alcohol intake: former Patient Tobacco Use Status: Former Tobacco user Years Smoked: quit 10 years ago Current occupational status: disabled Current occupation: rt handed Physical Exam Vital Signs: Last Vital Signs Pulse 67 06/20/23 12:37 BP 120/48 L 06/20/23 12:37 BMI result Body Mass Index 35.3 Absence of Cushingoid features. Absence of acromegalic features. Neck exam reveals nl size thyroid about 15 gms. No thyroid nodules palpable. No carotid bruits present. Lungs CTA. Heart S1 S2, Reg R/R. No M/R/ G. Skin exam reveals absence of vitiligo or acanthosis nigricans. Abdominal exam reveals Soft NT/ND with NA BS. No organomegaly present. Neck Other: . Extrem Other: Visual exam of foot performed. No ulcerations or open lesions. No onchomycosis, no callouses.Pulses 2 + distally Sensation intact to monofilament exam. Vibratory sensation sensed is decreased with 128 Hz tuning fork Results AMB Hemoglobin A1c AMB Hemoglobin A1c 6.6 % Last Edit by Prachi Majano on 06/20/23 12:58 Results Reviewed Results Reviewed: 06/20/23 12:46 Glucose, Whole Blood Routine Laboratory Last Values Glucose (Clinic) 140 mg/dL (60-115) H 06/20/23 12:46 Assessment & Plan Assessment & Plan (1) Type 2 diabetes mellitus with diabetic polyneuropathy: Code(s): E11.42 - Type 2 diabetes mellitus with diabetic polyneuropathy Qualifiers: Diabetes mellitus skilled nursing insulin use: with skilled nursing use Qualified Code(s): E11.42 - Type 2 diabetes mellitus with diabetic polyneuropathy; Z79.4 - long term care social worker (current) use of insulin Plan: This 62-year-old female with a history of type 2 diabetes being treated metformin, Trulicity, Invokana and basal-bolus insulin with excellent glycemic control but episodes of hypoglycemia occurring after dinner and known microvascular complications namely neuropathy. Plan is to decrease the the Humalog by 3-4 units prior to dinner.. Orders: Orders AMB Hemoglobin A1c Today E11.42 - Type 2 diabetes mellitus with diabetic polyneuropathy Coding Level of Care Code Est Pt Level 4 (95484) Diagnoses Type 2 diabetes mellitus with diabetic polyneuropathy E11.42; Z79.4 Diabetes mellitus salvage determiner insulin use: with skilled nursing use
[2023-06-20 12:37] VITALS: BP 120/48; PULSE 67; BMI 35.3
[2023-06-20 12:51] LABS: Glucose, Whole Blood 140 mg/dL (60-115)
== END 2023-06-20 13:23 | disposition home or self-care (01) ==
PROVIDERS: PCP Internal Medicine; Visit Provider Internal Medicine Endocrinology, Diabetes & Metabolism
DX: E11.42 Type 2 diabetes mellitus with diabetic polyneuropathy (principal); Z79.4 Long term (current) use of insulin
CPT/HCPCS: 99214

== ENCOUNTER → 2023-06-20 12:15 | Outpatient (BNVA) | payer OTHER, SELFPAY | PROVIDERS: Visit Provider Internal Medicine Endocrinology, Diabetes & Metabolism | DX: E11.42 Type 2 diabetes mellitus with diabetic polyneuropathy (principal); Z79.4 Long term (current) use of insulin | CPT/HCPCS: 82947; 83036; 99212 ==

== ENCOUNTER 2023-07-11 12:03 | Outpatient (REF) | payer OTHER, SELFPAY ==
[2023-07-11 12:40] LABS: Cholesterol 166 mg/dL (<200); HDL Cholesterol 50 mg/dL (>40); LDL Cholesterol Calculated 95 mg/dL (<100); Triglycerides 106 mg/dL (<150)
[2023-07-11 12:41] LABS: Alanine Aminotransferase 9 U/L (0-31); Albumin Level 4.4 g/dL (3.5-5.0); Alkaline Phosphatase 90 U/L (39-117); Aspartate Amino Transferase 17 U/L (5-31); Bilirubin Direct 0.1 mg/dL (0.0-0.5); Bilirubin Total 0.3 mg/dL (0.0-1.0); Glucose Fasting 90 mg/dL (60-99); Total Protein 7.7 g/dL (6.5-8.0)
[2023-07-11 12:53] LABS: Estimated Average Glucose 140 mg/dL; Hemoglobin A1c % 6.5 % (<6.0)
[2023-07-11 14:39] LABS: Reflex LDLD? No
== END 2023-07-11 12:04 | disposition home or self-care (01) ==
LOC: HO.LNP 12:03
PROVIDERS: Visit Provider Internal Medicine
DX: E11.9 Type 2 diabetes mellitus without complications (principal); E78.00 Pure hypercholesterolemia, unspecified
CPT/HCPCS: 80061; 80076; 82947; 83036

== ENCOUNTER 2023-12-13 09:45 | Outpatient (REF) | payer OTHER, SELFPAY ==
[2023-12-13 10:10] LABS: Hemoglobin 11.6 g/dl (12.0-16.0); Mean Corpuscular HGB Conc 32.2 g/dl (31.0-35.0); Mean Corpuscular Volume 99.4 fL (80.0-98.0); Platelet Count 149 X10*3/uL (160-400); Red Blood Count 3.62 X10*6/uL (4.20-5.50); Red Cell Distribution Width 13.1 % (11.0-16.0)
[2023-12-13 10:10] LABS: Appearance Urine Clear; Color Urine Yellow; Glucose Urine UA >=1000 mg/dL (Negative); Leukocyte Esterase Urine Negative (Negative); Nitrite Urine Negative (Negative); PH 6.5 (5.0-9.0); Specific Gravity - Urine >= 1.030 (1.005-1.025); UMIC TRIGGER UACC YES; Urine Blood Negative (Negative); Urine Ketones Negative (Negative); Urine Protein Negative (Neg-Trace)
[2023-12-13 10:12] LABS: WBC ABN SCTR FOR CBC 1; White Blood Count 7.1 X10*3/uL (4.8-10.8)
[2023-12-13 10:13] LABS: Bacteria Urine 1+ (None Seen); Hyaline Casts Urine 0-2 /LPF (0-2); RBC Urine 0-2 /HPF (0-2); UACC Culture Trigger YES
[2023-12-13 10:18] LABS: Estimated Average Glucose 157 mg/dL; Hemoglobin A1c % 7.1 % (<6.0)
[2023-12-13 10:42] LABS: Creatinine Urine 70.23 mg/dL; Microalbum/Creatinine Ratio Ur 54.1 ug/mg cr (<30)
[2023-12-13 10:57] LABS: Alanine Aminotransferase 10 U/L (0-31); Albumin Level 4.4 g/dL (3.5-5.0); Alkaline Phosphatase 87 U/L (39-117); Anion Gap 13 (12-20); Aspartate Amino Transferase 16 U/L (5-31); Bilirubin Total 0.3 mg/dL (0.0-1.0); Blood Urea Nitrogen 16 mg/dL (9-16); Carbon Dioxide 30 mmol/L (22-29); Chloride 104 mmol/L (96-108); Cholesterol 177 mg/dL (<200); Estimated Glomerular Filt Rate > 60; Glucose Fasting 144 mg/dL (60-99); HDL Cholesterol 44 mg/dL (>40); LDL Cholesterol Calculated 98 mg/dL (<100); Potassium 3.9 mmol/L (3.3-5.1); Sodium 143 mmol/L (135-145); Total Protein 7.9 g/dL (6.5-8.0); Triglycerides 176 mg/dL (<150)
[2023-12-13 11:00] LABS: Vitamin D 25-OH Total 42.8 ng/mL (>30)
[2023-12-13 11:03] LABS: Eosinophils Absolute Manual 0.1 X10*3/uL (0.0-0.4); Eosinophils Percent Manual 1 % (0-4); Lymphocytes Absolute Manual 1.9 X10*3/uL (1.2-4.9); Lymphocytes Percent Manual 27 % (20-40); Monocytes Absolute Manual 0.4 X10*3/uL (0.1-1.2); Monocytes Percent Manual 6 % (2-11); Neutrophils Percent Manual 66 % (45-73)
[2023-12-13 11:04] LABS: Band Neutrophils Percent 0 % (3-5); Neutrophils Absolute Manual 4.7 X10*3/uL (2.0-8.3)
[2023-12-13 11:05] LABS: Macrocytosis 1+ (5-14) /OIF; Platelet Estimate NORMAL (NORMAL); Platelet Morphology Comment NORMAL; RBC Morphology NOTED
== END 2023-12-13 09:46 | disposition home or self-care (01) ==
LOC: HO.LAB 09:45
PROVIDERS: PCP Internal Medicine; Visit Provider Internal Medicine
DX: Z00.00 Encounter for general adult medical examination without abnormal findings (principal); E11.40 Type 2 diabetes mellitus with diabetic neuropathy, unspecified; I10 Essential (primary) hypertension; E78.00 Pure hypercholesterolemia, unspecified; E55.9 Vitamin D deficiency, unspecified
CPT/HCPCS: 36415; 80053; 80061; 81001; 82043; 82306; 82570; 83036; 85007; 85025; 85027; 87086

== ENCOUNTER 2023-12-27 11:28 | Outpatient (AMB) | payer OTHER, SELFPAY ==
--- NOTE | 2023-12-27 11:31 | A.OFFVIS_ITS ---
Intake Vital Signs 12/27/23 11:33 Height 5 ft Weight 190 lb BMI 37.1 BP 150/65 H Blood Pressure Location Lt brachial Position Sitting Respiration 12 Pulse 72 Pulse Source Pulse Oximeter Pulse Oximetry (%) 98 Oxygen Delivery Method Room Air Intake Visit Reasons: Follow Up/Anesthesia of Skin/confirmed Allergies GEL ELECTRODES Allergy (Mild, Uncoded 12/27/23 11:34) RASH Medication List - Last Reconciled 12/27/23 by Monica Brock LPN acetaminophen (Tylenol Extra Strength) 500 mg PO Q6H PRN alcohol swabs pad topical amlodipine 2.5 mg PO DAILY aspirin 81 mg PO DAILY atenolol 50 mg PO DAILY atorvastatin 40 mg PO DAILY blood sugar diagnostic (FreeStyle Lite Strips) As directed four times a day canagliflozin (Invokana) 300 mg PO DAILY cholecalciferol (vitamin D3) 50 mcg PO DAILY ferrous sulfate 325 mg PO DAILY flash glucose scanning reader (CRITICAL TECHNOLOGIESStyle Marty 2 [place]) As directed flash glucose sensor (FreeStyle Marty 2 Sensor kit) DIRECTED CHANGE EVERY 14 DAYS glucagon 3 mg/actuation (Baqsimi) 3 mg intranasal ONCE insulin lispro (Admelog SoloStar U-100 Insulin lispro) 15 u for small meals, 15 u for large, + 2 units for bg>200, + 3 units for BG >250, + 4 units bg >300mg/dl. Of note..for very light meal use only 6 units. subcut 3 times a day; 30 days Lantus Solostar U-100 Insulin (insulin glargine) 50 units (0.5 mL) subcut DAILY NS lisinopril 40 mg PO DAILY metformin 1,000 mg (2 x 500 mg) PO BID omeprazole 40 mg PO DAILY pen needle, diabetic As directed semaglutide (Ozempic) 0.5 mg (0.736 mL) subcut QWEEK triamcinolone acetonide 0.1% 1 appl topical DAILY HPI Follow Up/Anesthesia of Skin/confirmed HPI Details 63-year-old female who presents today to the office for a follow-up. The patient reports 75% relief following the last procedure. She reports shoulder pain today and would like to get injections for her complaints. She is able to sleep on her sides. She is unable to put her arm on the back side. She has a limited ROM. She also reports a worsening of her knee pain. She is not using her knee braces. She has not had any x-rays in the past. She has a history of diabetes mellitus. Past procedures: 06/17/2023: Bilateral acromioclavicular joint injection: 75% relief. 06/17/2023: Right diagnostic infrapatell ar saphenous nerve block: 100% relief. [facility] Medical History (Updated 01/02/24 @ 15:41 by Dev Oneill MD) Urinary incontinence Chronic constipation Fibromyalgia Primary osteoarthritis of knees, bilateral NAFLD (nonalcoholic fatty liver disease) Tubular adenoma of colon Essential hypertension Neuropathy Osteoarthritis Fibromyalgia DARIEL on CPAP Upper GI bleed Hepatomegaly History of alcohol abuse Stroke Depression Anxiety Hyperlipidemia LDL goal <70 Obesity with body mass index of 30.0-39.9 Type 2 diabetes mellitus with diabetic polyneuropathy Surgical History History of temporal artery biopsy Hx of colonoscopy Hx of esophagogastroduodenoscopy Family History Father Diabetes Mother Hypertension Daughter Breast cancer Ovarian cancer Social History Household Members: Family Household Members Other:: adult child and grandchild Alcohol intake: former Patient Tobacco Use Status: Former Tobacco user Years Smoked: quit 10 years ago Current occupational status: disabled Current occupation: rt handed Review of Systems Const All systems reviewed & are unremarkable except as noted in HPI and below Physical Exam Vital Signs: Last Vital Signs Pulse 72 12/27/23 11:33 Resp 12 12/27/23 11:33 BP 150/65 H 12/27/23 11:33 Pulse Ox 98 12/27/23 11:33 Oxygen Delivery Method Room Air 12/27/23 11:33 BMI result Body Mass Index 37.1 General: Appears afebrile. Alert and oriented. Mood and affect appropriate. Follows and participates in conversation appropriately. Respiratory effort is unlabored. Able to transition from sit to stand unassisted. Ambulates with bilaterally normal heel strike and toe off. Office Procedures Joint Injection/Drain Joint Injection/Drain Details: Bilateral subacromial shoulder bursa injections, ultrasound guided Primary Site: right shoulder Secondary Site: left shoulder Prep: site was prepped using sterile technique Injected: 20 mg of, Kenalog, with 3 mL of (Ropivacaine 0.25%) and in the subcr omial space (on both side) Approach Used: posterolateral Procedure: there was some relief with the local anesthesia Coding Details: An ultrasound image of the injection was taken and stored in the permanent record. - Acromioclavicular with ultrasound guidance (Bilateral) Procedure code (CPT) selection complete Results Reviewed Results Reviewed: No imaging is available for review. Assessment & Plan Assessment & Plan (1) Bilateral knee pain: Code(s): M25.561 - Pain in right knee; M25.562 - Pain in left knee (2) Bilateral shoulder pain: Code(s): M25.511 - Pain in right shoulder; M25.512 - Pain in left shoulder Plan I will order an x-ray of the bilateral knee for further evaluation. A referral was provided to physical therapy. The patient will receive a call to schedule an appointment. If her x-ray result shows arthritis of the knee joint, we can file a PA for gel injections for her knee pain. Patient is status post bilateral subacromial shoulder bursa injections, ultrasound guided. Patient tolerated procedure well and was discharged home in stable condition with discharge instructions. All questions were answered. We will follow-up in two weeks via telephone or in clinic to assess response to therapy. A follow-up appointment was made during today's visit. Scribed for Dr. Oneill by Johnnie Flores, medical staff credentialing coordinator, on 12/27/2023. I, Dr. Oneill, have personally reviewed and agree with the information entered by the scribe. Orders: Orders XR knee standing BI 12/30/23 M25.561 - Pain in right knee, M25.562 - Pain in left knee PT Evaluation and Treatment 12/27/23 M25.561 - Pain in right knee, M25.562 - Pain in left knee Coding Level of Care Code Est Pt Level 3 (10088) Diagnoses Bilateral knee pain M25.561; M25.562 Bilateral shoulder pain M25.511; M25.512 CPT Codes Coding - Joint 6: - Acromioclavicular with ultrasound guidance ([id number])
[2023-12-27 11:33] VITALS: BP 150/65; PULSE 72; RESP 12; O2SAT 98; BMI 37.1
== END 2023-12-27 12:07 | disposition home or self-care (01) ==
PROVIDERS: PCP Internal Medicine; Visit Provider Internal Medicine
DX: M25.561 Pain in right knee (principal); M25.562 Pain in left knee; M25.511 Pain in right shoulder; M25.512 Pain in left shoulder
CPT/HCPCS: 20611; 99213

== ENCOUNTER → 2023-12-27 11:28 | Outpatient (BNVA) | payer OTHER, SELFPAY | PROVIDERS: PCP Internal Medicine; Visit Provider Internal Medicine | DX: M25.561 Pain in right knee (principal); M25.562 Pain in left knee; M25.511 Pain in right shoulder; M25.512 Pain in left shoulder | CPT/HCPCS: 20611; 99212; J0665; J3301 ==

== ENCOUNTER 2023-12-30 12:36 | Outpatient (REF) | payer OTHER, SELFPAY ==
--- NOTE | ~2023-12-30 | XR_ITS ---
EXAMINATION: XR KNEE AP STANDING CLINICAL INFORMATION: Pain in right knee. COMPARISON: Left knee of 11/25/2019 radiographs. Bilateral knee radiographs of 05/11/2019. TECHNIQUE: AP bilateral standing view of the knees was obtained. FINDINGS: The bones are diffusely demineralized. Bilateral atherosclerotic calcifications. Advanced degenerative changes in the medial compartments of the bilateral knees with joint space narrowing, faint chondrocalcinosis and medial marginal osteophytes. Small bilateral lateral marginal osteophytes. XR/XR knee standing BI IMPRESSION: Advanced degenerative changes in the medial compartments of the bilateral knees.
== END 2023-12-30 12:37 | disposition home or self-care (01) ==
LOC: HO.XRAY 12:36
PROVIDERS: PCP Internal Medicine; Visit Provider Internal Medicine
DX: M25.562 Pain in left knee (principal); M25.561 Pain in right knee
CPT/HCPCS: 73565

== ENCOUNTER 2024-02-18 11:00 | Outpatient (RCR) | payer OTHER, SELFPAY ==
--- NOTE | 2024-01-21 11:51 | MHC.PT.EP ---
[facility] [place] Office [place] Office [place] Office [address] Juventino Rivera [address] [phone] F: [phone] F: [phone] F: [phone] F: [phone] Physical Therapy Plan of Care Date of Evaluation: 01/21/24 Date of Surgery: N/A Diagnosis: bilateral knee pain (RL) Assessment: pt is a 63 y/o female presenting to physical therapy w/ referring diagnosis of bilateral knee pain. Impairments include pain, decreased range of motion, decreased strength, impaired functional mobility, impaired postural awareness, and altered ambulation mechanics. pt is a fair candidate for skilled PT due to age, potential remediation of impairments, typical disease/condition progression and prognosis, comorbidities, and motivation. pt would benefit from skilled PT intervention to provide a tailored strengthening and stretching exercise program, functional training, gait training, postural re-training, neuromuscular re-education, modalities as needed for pain, equipment safety demonstration. Frequency and Duration: The patient will be seen 2x/wk for 3 wks Short Term Goals: pt will be I w/ HEP to promote self-management of condition. pt will improve B knee flexion by at least 10 degrees to promote ease in lower body dressing. Cementer Machine Joiner Goals: pt will ascend/descend 4 stairs using railing and reciprocal pattern to promote ease in accessing living spaces. pt will report a statistically significant improvement in self-reported outcome measure, LEFI, to promote return to PLOF. Treatment Plan: Modalities to reduce pain, spasms and effusion. Manual therapy to restore motion and function. Therapeutic exercise to improve strength and flexibility. Neuromuscular re-education for posture and balance. Therapeutic activities to return to functional activities of daily living. Electronically signed by: Salma Huddleston PT, DPT Please sign and return to therapist. Thank you for your referral.
--- NOTE | 2024-03-06 10:45 | MHC.PT.DC ---
[place] Office [place] Office [place] Office [address] Juventino Rivera [address] [phone] F: [phone] F: [phone] F: [phone] F: [phone] Physical Therapy Discharge Report Diagnosis: bilateral knee pain (RL) Date of Surgery: N/A Date of Evaluation: 01/21/24 Date of Discharge: 03/06/24 Treatments to Date: 6 Cancellations to Date: 2 No Shows to Date: 0 Discharge Status: Independent with HEP Recommend MD Follow-up Discharge Summary: The patient overall has not noticed any change in her pain symptoms with physical therapy up to this point. Due to pain in other areas of her body it is difficult for her to tolerate positions to exercise in other than sitting. Her high levels of knee pain also make it difficult to progress her as she cannot tolerate much. She continues to wear bilateral knee braces and uses a rollator for ambulation. She mentioned no changes in her functional status. At this time, I am recommending she follow-up with her referring provider to determine other pain management options. She is discharged from this physical therapy plan of care. Electronically signed by: Salma Huddleston PT, DPT Please sign and return to therapist. Thank you for your referral.
== END 2024-03-06 10:45 | disposition home or self-care (01) ==
LOC: HO.PT 11:00
PROVIDERS: PCP Internal Medicine; Visit Provider Internal Medicine
DX: M25.561 Pain in right knee (principal); M25.562 Pain in left knee
CPT/HCPCS: 97110; 97162

== ENCOUNTER 2024-02-28 11:09 | Outpatient (AMB) | payer OTHER, SELFPAY ==
--- NOTE | 2024-02-28 11:37 | MHC.OFFVIS ---
Vital Signs 02/28/24 11:38 Height 5 ft Weight 175 lb BMI 34.2 BP 149/67 H Blood Pressure Location Lt brachial Position Sitting Respiration 14 Pulse 84 Pulse Source Pulse Oximeter Pulse Oximetry (%) 99 Oxygen Delivery Method Room Air Intake Visit Reasons: 2 MONTH FOLLOW UP Allergies GEL ELECTRODES Allergy (Mild, Uncoded 02/28/24 11:39) RASH Medication List - Last Reconciled 02/28/24 by Monica Brock LPN acetaminophen (Tylenol Extra Strength) 500 mg PO Q6H PRN alcohol swabs pad topical amlodipine 2.5 mg PO DAILY aspirin 81 mg PO DAILY atenolol 50 mg PO DAILY atorvastatin 40 mg PO DAILY blood sugar diagnostic (FreeStyle Lite Strips) As directed four times a day canagliflozin (Invokana) 300 mg PO DAILY cholecalciferol (vitamin D3) 50 mcg PO DAILY ferrous sulfate 325 mg PO DAILY flash glucose scanning reader (X2TVStyle Marty 2 [place]) As directed flash glucose sensor (FreeStyle Marty 2 Sensor kit) DIRECTED CHANGE EVERY 14 DAYS glucagon (Gvoke HypoPen 2-Pack) 1 mg (0.2 mL) subcut ONCE insulin lispro (Admelog SoloStar U-100 Insulin lispro) 15 u for small meals, 15 u for large, + 2 units for bg>200, + 3 units for BG >250, + 4 units bg >300mg/dl. Of note..for very light meal use only 6 units. subcut 3 times a day; 30 days Lantus Solostar U-100 Insulin (insulin glargine) 50 units (0.5 mL) subcut DAILY NS lisinopril 40 mg PO DAILY metformin 1,000 mg (2 x 500 mg) PO BID omeprazole 40 mg PO DAILY pen needle, diabetic As directed semaglutide (Ozempic) 0.5 mg (0.736 mL) subcut QWEEK triamcinolone acetonide 0.1% 1 appl topical DAILY HPI HPI 2 MONTH FOLLOW UP: Details: 63-year-old female who presents today to the office for a two month follow up. The patient reports significant relief following the procedure. Her shoulder pain improved post-procedure. She also did physical therapy. She reports right knee pain with burning sensations. Her knee pain is the most bothersome. She had used lidocaine patches and Tylenol. She has not had cortisone injections in her knee. She is anxious about receiving a cortisone injection today due to her history of diabetes mellitus. She has a blood sugar monitoring machine at home. Past procedures: 12/27/2023: Bilateral subacromial shoulder bursa injections, ultrasound guided: >70% relief. 06/17/2023: Bilateral acromioclavicular joint injection: 75% relief. 06/17/2023: Right diagnostic infrapatellar saphenous nerve block: 100% relief. [facility] Medical History (Updated 01/02/24 @ 15:41 by Dev Oneill MD) Urinary incontinence Chronic constipation Fibromyalgia Primary osteoarthritis of knees, bilateral NAFLD (nonalcoholic fatty liver disease) Tubular adenoma of colon Essential hypertension Neuropathy Osteoarthritis Fibromyalgia DARIEL on CPAP Upper GI bleed Hepatomegaly History of alcohol abuse Stroke Depression Anxiety Hyperlipidemia LDL goal <70 Obesity with body mass index of 30.0-39.9 Type 2 diabetes mellitus with diabetic polyneuropathy Surgical History History of temporal artery biopsy Hx of colonoscopy Hx of esophagogastroduodenoscopy Family History Father Diabetes Mother Hypertension Daughter Breast cancer Ovarian cancer Social History Household Members: Family Household Members Other:: adult child and grandchild Alcohol intake: former Patient Tobacco Use Status: Former Tobacco user Years Smoked: quit 10 years ago Current occupational status: disabled Current occupation: rt handed Review of Systems Const All systems reviewed & are unremarkable except as noted in HPI and below Physical Exam Vital Signs: Last Vital Signs Pulse 84 02/28/24 11:38 Resp 14 02/28/24 11:38 BP 149/67 H 02/28/24 11:38 Pulse Ox 99 02/28/24 11:38 Oxygen Delivery Method Room Air 02/28/24 11:38 BMI result Body Mass Index 34.2 General: Appears afebrile. Alert and oriented. Mood and affect appropriate. Follows and participates in conversation appropriately. Respiratory effort is unlabored. Able to transition from sit to stand unassisted. Ambulates with bilaterally normal heel strike and toe off. Office Procedures Joint Injection/Drain Joint Injection/Drain Details: Right knee injection with Kenalog Primary Site: right knee Prep: site was prepped using sterile technique Injected: 40 mg of, Kenalog, with 3 mL of (0.5% ropivacaine) and in the joint Approach Used: anteromedial Procedure: The patient tolerated the procedure well Coding - Large joint (Right knee, US guided) Procedure code (CPT) selection complete Results Reviewed Results Reviewed: No imaging is available for review. Assessment & Plan Assessment & Plan (1) Primary osteoarthritis of knees, bilateral: Comment: bilateral knee pain Code(s): M17.0 - Bilateral primary osteoarthritis of knee Category: Medical Plan Patient is status post right knee injection, US-guided. The patient tolerated the procedure well and was discharged home in stable condition with discharge instructions.? All questions were answered. She will return to the clinic as needed for right knee pain. We will consider either hydronic acid injection or peripheral nerve stim in the future since she is diabetic and concerned about repeated cortisone injections to her right knee. Scribed for Dr. Oneill by Johnnie Flores, medical receptionist, on 02/28/2024. I, Dr. Oneill, have personally reviewed and agree with the information entered by the scribe. Coding Level of Care Code Est Pt Level 3 (01154) Diagnoses Primary osteoarthritis of knees, bilateral M17.0 CPT Codes Coding - Large joint: 58265 - Large joint ([id number])
[2024-02-28 11:38] VITALS: BP 149/67; PULSE 84; RESP 14; O2SAT 99; BMI 34.2
== END 2024-02-28 12:10 | disposition home or self-care (01) ==
PROVIDERS: PCP Internal Medicine; Visit Provider Internal Medicine
DX: M17.0 Bilateral primary osteoarthritis of knee (principal)
CPT/HCPCS: 20610; 99213

== ENCOUNTER → 2024-02-28 11:09 | Outpatient (BNVA) | payer OTHER, SELFPAY | PROVIDERS: PCP Internal Medicine; Visit Provider Internal Medicine | DX: M17.0 Bilateral primary osteoarthritis of knee (principal) | CPT/HCPCS: 20610; 99212; J2795; J3301 ==

== ENCOUNTER 2024-03-09 11:21 | Outpatient (AMB) | payer OTHER, SELFPAY ==
[2024-03-09 11:22] VITALS: BP 132/52; PULSE 71; BMI 33.9
--- NOTE | 2024-03-09 11:22 | A.OFFVIS_ITS ---
Vital Signs 03/09/24 11:22 Height 5 ft Weight 173 lb 11.588 oz BMI 33.9 BP 132/52 L Blood Pressure Location Lt brachial Position Sitting Pulse 71 Pulse Source Pulse Oximeter Intake Visit Reasons: T2DM/CONFIRMED Intake Note: Patient present today to follow up on Type 2 Diabetes Mellitus. Patient receives DME supplies through: Pharmacy Last Diabetic Eye exam: 04/2023 Last Podiatry Visit: Doesn't have one. Random Glucose:118 mg/dl HgA1C: 7.1% Clinical Immunologist Required: No Accompanied by: Self / Same As Patient Allergies GEL ELECTRODES Allergy (Mild, Uncoded 03/09/24 11:28) RASH Medication List - Last Reconciled 03/09/24 by Dudley Wray MD acetaminophen (Tylenol Extra Strength) 500 mg PO Q6H PRN alcohol swabs pad topical amlodipine 2.5 mg PO DAILY aspirin 81 mg PO DAILY atenolol 50 mg PO DAILY atorvastatin 40 mg PO DAILY blood sugar diagnostic (FreeStyle Lite Strips) As directed four times a day canagliflozin (Invokana) 300 mg PO DAILY cholecalciferol (vitamin D3) 50 mcg PO DAILY ferrous sulfate 325 mg PO DAILY flash glucose scanning reader (FreeStyle Marty 2 Jean) As directed flash glucose sensor (FreeStyle Marty 2 Sensor kit) DIRECTED CHANGE EVERY 14 DAYS glucagon (Gvoke HypoPen 2-Pack) 1 mg (0.2 mL) subcut ONCE insulin lispro (Admelog SoloStar U-100 Insulin lispro) 15 u for small meals, 15 u for large, + 2 units for bg>200, + 3 units for BG >250, + 4 units bg >300mg/dl. Of note..for very light meal use only 6 units. subcut 3 times a day; 30 days Lantus Solostar U-100 Insulin (insulin glargine) 50 units (0.5 mL) subcut DAILY NS lisinopril 40 mg PO DAILY metformin 1,000 mg (2 x 500 mg) PO BID omeprazole 40 mg PO DAILY pen needle, diabetic As directed semaglutide (Ozempic) 0.5 mg (0.736 mL) subcut QWEEK triamcinolone acetonide 0.1% 1 appl topical DAILY HPI Comments Details: Patient is a 63 yo female with DM type 2 diagnosed 2009, who presents for visit for follow up management of diabetes . Past medical history: HTN, HLD. fibromyalgia, ostearthritis, DARIEL, neuropathy Micro and macrovascular complications: +neuropathy, +CVA, +PVD. Diabetes medications: Ozempic 0.5 mg Qwkly ., Lantus 50 units , Humalog 6 units for very light meal such as salad and meat. 15 units for small meals and 14 units for large meals, with a correction of plus 2 units for blood sugars over 200, +3 units for blood sugars over 250 and plus 5 units for blood sugars over 300, metformin 1000 mg 1 tablet twice a day. Invokana 300mg daily, metformin 1000 mg BID Blood glucose monitoring: Marty download shows she is using the sensor 82% of the time. Average glucose 144 with G mi of 6.8% and variability 35.8% glucose is in target range 76% of the time with 22% hyperglycemia and 2% hypoglycemia. Hypoglycemia is occurring primarily after dinner Symptoms reported: + numbness, tingling, cramping in toes and hands. Hypoglycemia: happens daily after dinner Symptoms of shakiness and sweatiness. 4 oz of juice or 2 tb sugar. Hyperglycemia: + urinary frequency, + nocturia (2x) , denies polydypsia Exercise: limited due to being ill Eye exam: has appt 08/2023 has appt next mo , denies retinopathy Laboratory Tests 10/17/21 10/17/21 10/17/21 09:05 09:05 09:05 Creatinine Estimated GFR Hemoglobin A1c % 8.7 Triglycerides 152 Cholesterol 152 LDL Cholesterol, Calc 86 HDL Cholesterol 36 25-OH Vitamin D Total 27.5 Microalb/Creat Ratio 841.6 10/17/21 Unknown Creatinine 0.81 Estimated GFR > 60 Hemoglobin A1c % Triglycerides Cholesterol LDL Cholesterol, Calc HDL Cholesterol 25-OH Vitamin D Total Microalb/Creat Ratio [facility] Medical History (Updated 01/02/24 @ 15:41 by Dev Oneill MD) Urinary incontinence Chronic constipation Fibromyalgia Primary osteoarthritis of knees, bilateral NAFLD (nonalcoholic fatty liver disease) Tubular adenoma of colon Essential hypertension Neuropathy Osteoarthritis Fibromyalgia DARIEL on CPAP Upper GI bleed Hepatomegaly History of alcohol abuse Stroke Depression Anxiety Hyperlipidemia LDL goal <70 Obesity with body mass index of 30.0-39.9 Type 2 diabetes mellitus with diabetic polyneuropathy Surgical History History of temporal artery biopsy Hx of colonoscopy Hx of esophagogastroduodenoscopy Family History Father Diabetes Mother Hypertension Daughter Breast cancer Ovarian cancer Social History Household Members: Family Household Members Other:: adult child and grandchild Alcohol intake: former Patient Tobacco Use Status: Former Tobacco user Years Smoked: quit 10 years ago Current occupational status: disabled Current occupation: rt handed Physical Exam Vital Signs: Last Vital Signs Pulse 71 03/09/24 11:22 BP 132/52 L 03/09/24 11:22 BMI result Body Mass Index 33.9 Absence of Cushingoid features. Absence of acromegalic features. Neck exam reveals nl size thyroid about 15 gms. No thyroid nodules palpable. No carotid bruits present. Lungs CTA. Heart S1 S2, Reg R/R. No M/R/ G. Skin exam reveals absence of vitiligo or acanthosis nigricans. Abdominal exam reveals Soft NT/ND with NA BS. No organomegaly present. Neck Other: . Extrem Other: Visual exam of foot performed. No ulcerations or open lesions. No onchomycosis, no callouses.Pulses 2 + distally Sensation intact to monofilament exam. Vibratory sensation sensed is decreased with 128 Hz tuning fork Results AMB Hemoglobin A1c AMB Hemoglobin A1c 7.1 % Last Edit by RADHA Sue on 03/09/24 11:40 Results Reviewed Results Reviewed: Laboratory Last Values Glucose (Clinic) 118 mg/dL (60-115) H 03/09/24 11:30 Assessment & Plan Assessment & Plan (1) Type 2 diabetes mellitus with diabetic polyneuropathy: Code(s): E11.42 - Type 2 diabetes mellitus with diabetic polyneuropathy Category: Medical Qualifiers: Diabetes mellitus ocean transportation intermediary insulin use: with ocean transportation intermediary use Qualified Code(s): E11.42 - Type 2 diabetes mellitus with diabetic polyneuropathy; Z79.4 - penitentiary (current) use of insulin Plan: This 62-year-old female with a history of type 2 diabetes being treated metformin, Ozempic , Invokana and basal-bolus insulin with excellent glycemic control but episodes of hypoglycemia occurring after dinner and known microvascular complications namely neuropathy. Plan is to discontinue the Humalog prior to dinner.. At this point, patient returned to the care of her primary care provider returned back to endocrinology should her HbA1c deteriorate Coding Level of Care Code Est Pt Level 4 (03198) Diagnoses Type 2 diabetes mellitus with diabetic polyneuropathy, with long-term current u se of insulin E11.42; Z79.4 Diabetes mellitus residential insulin use: with residential use
[2024-03-09 11:34] LABS: Glucose, Whole Blood 118 mg/dL (60-115)
== END 2024-03-09 11:39 | disposition home or self-care (01) ==
PROVIDERS: PCP Internal Medicine; Visit Provider Internal Medicine Endocrinology, Diabetes & Metabolism
DX: Z13.9 Encounter for screening, unspecified (principal); E11.42 Type 2 diabetes mellitus with diabetic polyneuropathy; Z79.4 Long term (current) use of insulin
CPT/HCPCS: 99214

== ENCOUNTER → 2024-03-09 11:21 | Outpatient (BNVA) | payer OTHER, SELFPAY | PROVIDERS: PCP Internal Medicine; Visit Provider Internal Medicine Endocrinology, Diabetes & Metabolism | DX: E11.42 Type 2 diabetes mellitus with diabetic polyneuropathy (principal); Z79.4 Long term (current) use of insulin | CPT/HCPCS: 82947; 83036; 99212 ==

== ENCOUNTER 2024-03-18 10:21 | Emergency (ER) | payer OTHER, SELFPAY ==
--- NOTE | ~2024-03-18 | CT_ITS ---
EXAMINATION: CT HEAD WITHOUT CONTRAST CLINICAL INFORMATION: Severe grade 10 out of 10 headache COMPARISON: CT scan of brain on 07/09/2015 TECHNIQUE: Contiguous axial imaging was performed from the skull base to vertex without intravenous administration of contrast. This CT examination was performed using dose optimization techniques as appropriate, variously including the following: *Automated exposure control *Adjustment of mA and/or kV according to patient size (this includes techniques or standardized protocols for targeted exams where dose is matched to indication/reason for exam; i.e. extremities or head) *Use of iterative reconstruction technique DLP: 524.08 mGy-cm FINDINGS: Cerebral sulci and cisterns are normal. There is mild ventriculomegaly. A probably chronic focal right superior parietal infarction associated with dilatation of left central sulcus is seen. There is no midline shift, no abnormal intra- or extra- axial fluid accumulation. Greer and white matter differentiation is normal. Bone window images show no evidence of skull fracture. CT/CT head/brain wo IV con IMPRESSION: 1. Interval development of mild ventriculomegaly. 2. No intracranial hemorrhage or skull fracture is seen. 3. No evidence of space occupying lesion could be found. 4. 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 This was not evident on MRI of the brain on 11/16/2013. Repeat evaluation with noncontrast MRI of the brain is recommended. 5. The current plain CT scan of the brain shows no diagnostic evidence of acute cerebral infarction.
[2024-03-18 10:40] VITALS: BP 184/82; BP 236/124; PULSE 107; PULSE 87; RESP 18; TEMP 36.8; O2SAT 98; O2SAT 99; BMI 36.4
[2024-03-18 11:13] VITALS: BP 169/76; PULSE 89; RESP 16; O2SAT 98
[2024-03-18 11:23] LABS: MANUAL DIFF FLAG NO
[2024-03-18 11:31] LABS: Basophils Percent Auto 0.3 % (0-2); Eosinophils Absolute Auto 0.1 X10*3/uL (0.0-0.4); Eosinophils Percent Auto 0.9 % (0-4); Hemoglobin 11.4 g/dl (12.0-16.0); Imm Gran Abs Auto 0.05 X10*3/uL (0.00-0.03); Imm Gran Pct Auto 0.7 % (0.0-0.4); Lymphocytes Absolute Auto 1.3 X10*3/uL (1.2-4.9); Lymphocytes Percent Auto 17.6 % (20-40); Mean Corpuscular HGB Conc 33.5 g/dl (31.0-35.0); Mean Corpuscular Hemoglobin 33.1 pg (27.0-33.0); Mean Corpuscular Volume 98.8 fL (80.0-98.0); Monocytes Absolute Auto 0.5 X10*3/uL (0.1-1.2); Monocytes Percent Auto 7.2 % (2-11); Neutrophils Absolute Auto 5.5 x10*3/uL (2.0-8.3); Neutrophils Percent Auto 73.3 % (45-73); Platelet Count 144 X10*3/uL (160-400); Red Blood Count 3.44 X10*6/uL (4.20-5.50); Red Cell Distribution Width 13.2 % (11.0-16.0); White Blood Count 7.5 X10*3/uL (4.8-10.8)
[2024-03-18 11:32] VITALS: BP 169/76; PULSE 89; RESP 16; O2SAT 98
[2024-03-18 11:38] LABS: Alanine Aminotransferase 8 U/L (0-31); Albumin Level 4.4 g/dL (3.5-5.0); Alkaline Phosphatase 74 U/L (39-117); Anion Gap 15 (12-20); Aspartate Amino Transferase 18 U/L (5-31); Bilirubin Total 0.3 mg/dL (0.0-1.0); Blood Urea Nitrogen 13 mg/dL (9-16); Calcium 10.1 mg/dL (8.4-10.2); Carbon Dioxide 25 mmol/L (22-29); Chloride 103 mmol/L (96-108); Creatinine Clr Calc Pharmacy 64.2; Estimated Glomerular Filt Rate > 60; Glucose Random 142 mg/dL (60-115); Magnesium 1.5 mg/dL (1.6-2.6); Potassium 4.2 mmol/L (3.3-5.1); Sodium 139 mmol/L (135-145); Total Protein 7.9 g/dL (6.5-8.0)
[2024-03-18 12:00] VITALS: BP 170/76; PULSE 89; RESP 14; O2SAT 99
--- NOTE | 2024-03-18 12:01 | ECG_ITS ---
Test Reason : ARRYTHMIA Blood Pressure : / mmHG Vent. Rate : 082 BPM Atrial Rate : 082 BPM P-R Int : 172 ms QRS Dur : 088 ms QT Int : 356 ms P-R-T Axes : 032 019 047 degrees QTc Int : 415 ms Normal sinus rhythm Normal ECG When compared with ECG of 03-APR-2023 10:11, Premature ventricular complexes are no longer Present Referred By: Generic ED Physician Electronically Signed By:ILIANA SANTIAGO MD
[2024-03-18 12:07] LABS: Influenza A PCR NEGATIVE (Negative); Influenza B PCR NEGATIVE (Negative); Resp Syncy Virus RNA Qual PCR NEGATIVE (Negative); SARS COV2 PCR INHOUSE NEGATIVE (Negative)
--- NOTE | 2024-03-18 12:33 | ED.HA ---
HPI - Headache General Chief Complaint: Headache Stated Complaint: durant per ems Time Seen by Provider: 03/18/24 12:20 Source: patient, EMS, RN notes reviewed and old records reviewed Mode of arrival: EMS Limitations: no limitations History of Present Illness HPI Narrative: 63-year-old female with past medical history significant for CVA (10 yrs ago), type 2 diabetes, diabetic neuropathy, hyperlipidemia, anxiety, depression, migraines, fibromyalgia, osteoarthritis, hypertension, nonalcoholic fatty liver disease, and chronic constipation presents to the emergency department today via EMS for evaluation of headache x2 weeks, worsening x2 days. Endorses headache localized to right amish with intermittent radiation to left amish. Admits to blurred vision to right eye which began today. Denies vision loss or double vision. No vision changes to left eye. Not on anticoagulation. Reports history of migraines. Does not currently take preventative or abortive migraine medications. Denies fevers, chills, dizziness, neck or back pain, sore throat, cough, hemoptysis, N/V. Denies injury or trauma to the head. Related Data Home Medications ?Medication ?Instructions ?Recorded ?Confirmed atenolol 50 mg tablet 50 mg PO DAILY 10/12/20 02/28/24 alcohol swabs pad topical 11/01/20 02/28/24 ferrous sulfate 325 mg (65 mg 325 mg PO DAILY 11/01/20 02/28/24 iron) tablet pen needle, diabetic 32 gauge x #50 ea 11/01/20 02/28/24 aspirin 81 mg tablet,delayed 81 mg PO DAILY 12/27/20 02/28/24 release cholecalciferol (vitamin D3) 50 50 mcg PO DAILY 02/07/21 02/28/24 mcg (2,000 unit) tablet acetaminophen 500 mg tablet 500 mg PO Q6H PRN Pain 11/21/21 02/28/24 (Tylenol Extra Strength) triamcinolone acetonide 0.1 % 1 appl topical DAILY 12/14/21 02/28/24 topical cream amlodipine 2.5 mg tablet 2.5 mg PO DAILY 03/20/22 02/28/24 Previous Rx's ?Medication ?Instructions ?Recorded lisinopril 40 mg tablet 40 mg PO DAILY #30 tabs 03/24/21 flash glucose scanning reader #1 ea 03/21/23 (FreeStyle Marty 2 Hessel) Lantus Solostar U-100 Insulin 100 50 unit (0.5 mL) subcut DAILY #45 09/11/23 unit/mL (3 mL) subcutaneous pen mL (insulin glargine) canagliflozin 300 mg tablet 300 mg PO DAILY #30 tabs 10/07/23 (Invokana) metformin 500 mg tablet 1,000 mg (2 x 500 mg) PO BID #360 11/12/23 tabs omeprazole 40 mg capsule,delayed 40 mg PO DAILY #90 caps 11/12/23 release atorvastatin 40 mg tablet 40 mg PO DAILY #90 tabs 12/05/23 semaglutide 0.25 mg or 0.5 mg (2 0.5 mg (0.736 mL) subcut QWEEK #3 12/19/23 mg/3 mL) subcutaneous pen injector mL (Ozempic) glucagon 0.5 mg/0.1 mL 1 mg (0.2 mL) subcut ONCE #0.2 mL 01/08/24 subcutaneous auto-injector (Gvoke HypoPen 2-Pack) insulin lispro 100 unit/mL See Rx Instructions subcut TID 30 02/07/24 subcutaneous pen (Admelog SoloStar days #30 mL U-100 Insulin lispro) flash glucose sensor (FreeStyle #2 kits 03/10/24 Marty 2 Sensor kit) blood sugar diagnostic (FreeStyle #150 strips 03/12/24 Lite Strips) [id number]-[id number] 1 cap PO Q8H PRN pain (scale score 03/18/24 50 mg-300 mg-40 mg capsule 7-10) #10 caps (Fioricet) Allergies Allergy/AdvReac Type Severity Reaction Status Date / Time GEL ELECTRODES Allergy Mild RASH Uncoded 03/18/24 10:45 Review of Systems Review of Systems: Constitutional: No fever, chills, fatigue, night sweats, weight changes ENT/Mouth: No ear pain, hearing loss, nasal congestion, sinus pain, rhinorrhea, sore throat Eyes: No eye pain, swelling, redness, discharge, +blurred vision to right eye Cardio: No chest pain, palpitations, ARCE, orthopnea, peripheral edema Pulm: No SOB, cough, sputum, wheezing, dyspnea, hemoptysis GI: No nausea, vomiting, hematemesis, abdominal pain, diarrhea, constipation, hematochezia, melena : No irregular bleeding, dysuria, frequency, urgency, hesitancy, hematuria, flank pain, urinary flow changes, urinary incontinence or retention MSK: No back pain, neck pain, joint pain, myalgias Skin: No lesions, rashes Neuro: No weakness, numbness, paresthesias, LOC, dizziness, +headache Psych: No anxiety/panic, depression, SI/HI, AH/VH All other systems reviewed and are negative. [facility] Past Medical History Attestation statement: The following information was validated with the patient. Source: old records reviewed Medical History Urinary incontinence Chronic constipation Fibromyalgia Primary osteoarthritis of knees, bilateral NAFLD (nonalcoholic fatty liver disease) Tubular adenoma of colon Essential hypertension Neuropathy Osteoarthritis Fibromyalgia DARIEL on CPAP Upper GI bleed Hepatomegaly History of alcohol abuse Stroke Depression Anxiety Hyperlipidemia LDL goal <70 Obesity with body mass index of 30.0-39.9 Type 2 diabetes mellitus with diabetic polyneuropathy Surgical History History of temporal artery biopsy Hx of esophagogastroduodenoscopy Hx of colonoscopy Family History Family History Father Diabetes Mother Hypertension Daughter Breast cancer Ovarian cancer Social History Social History Household Members: Family Household Members Other:: adult child and grandchild Alcohol intake: former Patient Tobacco Use Status: Former Tobacco user Years Smoked: quit 10 years ago Smoked in Last 30 Days: No Use of substances other than those prescribed or required for medical reasons: No Advance Directives: No Advance Directives Information Provided: Yes Current occupational status: disabled Current occupation: rt handed Physical Exam Vital Signs: Vital Signs: Last Vital Signs Temp 98.3 F 03/18/24 10:40 Pulse 89 03/18/24 12:00 Resp 14 03/18/24 12:00 BP 170/76 H 03/18/24 12:00 Pulse Ox 99 03/18/24 12:00 O2 Del Method Room Air 03/18/24 12:00 BMI result Body Mass Index 36.4 Patient hypertensive to 170/76, vitals otherwise WNL Const: General: cooperative, healthy appearing, comfortable and no acute distress Orientation/consciousness: patient oriented x3 Limitations: no limitations HEENT: Head: Yes normal to inspection, Yes No palpable skull fracture present, Yes normocephalic, Yes atraumatic, No scalp tenderness and No Temporal artery tenderness present Ears: hearing grossly normal bilaterally, external ears normal, EAC's normal, mastoids normal and no periauricular adenopathy Face and sinus: Yes normal facial exam and Yes sinuses nontender Mouth: Normal oral and palatal mucosa present Eyes: General: appearance normal, both eyes and all related structures Conjunctivae: conjunctivae normal Sclerae: sclerae normal Pupils: Equal, round and reactive pupils present Neck: Neck: Yes normal visual inspection, Yes full ROM and Yes no lymphadenopathy Resp: Effort & Inspection: normal respiratory effort and able to speak in complete sentences Auscultation: clear to auscultation bilaterally Cardio: Rate: regular rate Rhythm: regular rhythm Skin: General skin exam: no rashes or lesions noted Neuro: General: patient oriented x3, gait normal, tone normal, moves all extremities and no focal motor deficits Cranial nerves: Yes Equal, round and reactive pupils present Gait exam (Neuro): Normal gait present Motor exam (neuro): 5/5 motor strength present throughout, Pronator motor function not present and no tremor noted Coordination: tkuexr-wl-[id number] test normal, [id number] test normal and Normal rapid alternating movements of the distal upper extremity present (Neuro) Pupils: Normal pupillary reactivity/response: bilateral Course Course Course Narrative: 1334-- CBC without leukocytosis or left shift. Chronic macrocytic anemia, H and H stable when compared to priors. Chemistry without acute electrolyte abnormality requiring intervention. Random glucose 142. Magnesium 1.5. 2mg mag sulfate ordered for repletion. EKG showing normal sinus rhythm with a rate of 82 beats per minute, QT 356, QTC 415, no acute ischemic changes or ST elevations. She has tested negative for COVID, flu, RSV. inflammatory markers are chronically elevated when compared to priors. no concern for acute temporal arteritis. > CT head/brain pending. 1550 -- CT head/brain showing interval development of mild ventriculomegaly. No intracranial hemorrhage, skull fracture evidence of space-occupying lesion. There is interval development of the chronic appearing right superior anterior parietal cerebral infarction involving the postcentral gyrus which was not evident on MRI of brain approximately 10 years ago. On current CT scan there is no diagnostic evidence of acute cerebral infarction. > I called and spoke with radiologist at [facility] to discuss read. He states that the chronic appearing right superior anterior parietal cerebral infarction appears years old, rather than an infarct that would have occurred over the last few weeks. Given patient's physical exam is nonfocal and there are no neuro deficits, likely gaming of acute CVA at this time is extremely low. Case was also discussed with my attending physician Dr. Suarez who has reviewed CT read. She reports some improvement in DURANT following IV mag administration. Will give a dose of Reglan and Benadryl prior to discharge. Will send patient home with rx for fioricet. I advised her to follow up with her eye doctor however she states that she has been unable to get an appointment any sooner than May 2024. Will provide with referral to Dr. Duron. advised to call tomorrow for appointment. will also provide referral to neurology for follow up. discussed all work up results with patient. She has remained stable throughout ED visit today. Discussed worrisome signs and symptoms and when to return to the ED. All questions answered at this time. Patient is agreeable with disposition and stable for discharge. Medications Administered Discontinued Medications Generic Name Dose Route Start Last Admin Trade Name Freq PRN Reason Stop Dose Admin Diphenhydramine HCl 25 mg 03/18/24 15:34 03/18/24 16:00 Diphenhydramine Hcl 50 Mg/Ml Vial IVPUSH 03/18/24 15:35 25 mg ONCE ONE Administration Magnesium Sulfate 2 gm in 50 mls @ 25 mls/hr 03/18/24 13:35 03/18/24 16:00 Magnesium Sulfate/H2o IV 03/18/24 15:34 Infused ONCE ONE Infusion Metoclopramide HCl 10 mg 03/18/24 15:34 03/18/24 16:02 Metoclopramide Hcl 10 Mg/2 Ml Vial IVPUSH 03/18/24 15:35 10 mg ONCE ONE Administration Medical Decision Making Medical Decision Making MDM Narrative: 63-year-old female with past medical history significant for CVA (10 yrs ago), type 2 diabetes, diabetic neuropathy, hyperlipidemia, anxiety, depression, migraines, fibromyalgia, osteoarthritis, hypertension, nonalcoholic fatty liver disease, and chronic constipation presents to the emergency department today via EMS for evaluation of headache x2 weeks, worsening x2 days. Patient hypertensive, vitals otherwise WNL. She is nontoxic-appearing and in no acute distress. Exam is nonfocal. There is no facial droop, slurred speech, or pronator drift. Cerebellum intact. She is ambulating with steady gait. On eye exam, PERRLA. No photophobia. No papilledema. There is no palpable temporal aa or scalp tenderness. no jaw claudication. no tenderness noted over distribution of trigeminal nerve. bilateral EACs and TMs wnl. Differential diagnosis includes migraine headache, tension headache, generalized headache, essential hypertension, anemia, electrolyte abnormality, dehydration. Lower suspicion for temporal arteritis, trigeminal neuralgia, ICH, CVA/TIA, hypertensive urgency, hypertensive emergency, malignant hypertension, pseudotumor cerebri. Basic labs, ekg, ct head/brain ordered. Plan for review and re-evaluation. Differential Diagnosis Differential Diagnoses: The differential diagnosis associated with the presentation includes As above Admission/Observation not indicated. Lab Data MDM Lab Attestation statement: I reviewed the patient's lab results. As above 03/18/24 11:17 03/18/24 11:17 Labs: Lab Results 03/18/24 Range/Units 11:17 WBC 7.5 (4.8-10.8) X10*3/uL RBC 3.44 L (4.20-5.50) X10*6/uL Hgb 11.4 L (12.0-16.0) g/dl Hct 34.0 L (37.0-47.0) % MCV 98.8 H (80.0-98.0) fL MCH 33.1 H (27.0-33.0) pg MCHC 33.5 (31.0-35.0) g/dl RDW 13.2 (11.0-16.0) % Plt Count 144 L (160-400) X10*3/uL MPV 13.0 H (9.4-12.3) fL Immature Gran % (Auto) 0.7 H (0.0-0.4) % Neut % (Auto) 73.3 H (45-73) % Lymph % (Auto) 17.6 L (20-40) % Greene % (Auto) 7.2 (2-11) % Eos % (Auto) 0.9 (0-4) % Baso % (Auto) 0.3 (0-2) % Lymph # (Auto) 1.3 (1.2-4.9) X10*3/uL Greene # (Auto) 0.5 (0.1-1.2) X10*3/uL Eos # (Auto) 0.1 (0.0-0.4) X10*3/uL Baso # (Auto) 0.0 (0.0-0.2) X10*3/uL Abs Immat Gran (auto) 0.05 H (0.00-0.03) X10*3/uL Absolute Neuts (auto) 5.5 (2.0-8.3) x10*3/uL Absolute Nucleated RBC 0.000 (0.0-0.012) X10*3/uL Nucleated RBC % (auto) 0.0 (0.0-0.2) /100WBC ESR 58 H (0-20) MM/HR Sodium 139 (135-145) mmol/L Potassium 4.2 (3.3-5.1) mmol/L Chloride 103 (96-108) mmol/L Carbon Dioxide 25 (22-29) mmol/L Anion Gap 15 (12-20) BUN 13 (9-16) mg/dL Creatinine 0.83 (0.5-1.4) mg/dL Estim Creat Clear Calc 64.2 Estimated GFR > 60 Random Glucose 142 H (60-115) mg/dL Calcium 10.1 (8.4-10.2) mg/dL Magnesium 1.5 L (1.6-2.6) mg/dL Total Bilirubin 0.3 (0.0-1.0) mg/dL AST 18 (5-31) U/L ALT 8 (0-31) U/L Alkaline Phosphatase 74 (39-117) U/L C-Reactive Protein 0.69 H (< or = 0.50) mg/dL Total Protein 7.9 (6.5-8.0) g/dL Albumin 4.4 (3.5-5.0) g/dL Influenza Type A (PCR) NEGATIVE (Negative) Influenza Type B (PCR) NEGATIVE (Negative) RSV RNA Qual (PCR) NEGATIVE (Negative) SARS-CoV-2 RNA (RT-PCR) NEGATIVE (Negative) Independent Interpretation I performed an independent interpretation of an: EKG and CT Scan Interpretation: EKG showing normal sinus rhythm with a rate of 82 beats per minute, QT 356, QTC 415, no acute ischemic changes or ST elevations. CT head/brain without acute bleed, agree with radiologist's interpretation Radiology Impression Discussion of test interpretation with radiology: I have reviewed the radiologist's reading. Radiologist Impression: EXAMINATION: CT HEAD WITHOUT CONTRAST CLINICAL INFORMATION: Severe grade 10 out of 10 headache COMPARISON: CT scan of brain on 07/09/2015 TECHNIQUE: Contiguous axial imaging was performed from the skull base to vertex without intravenous administration of contrast. This CT examination was performed using dose optimization techniques as appropriate, variously including the following: *Automated exposure control *Adjustment of mA and/or kV according to patient size (this includes techniques or standardized protocols for targeted exams where dose is matched to indication/reason for exam; i.e. extremities or head) *Use of iterative reconstruction technique DLP: 524.08 mGy-cm FINDINGS: Cerebral sulci and cisterns are normal. There is mild ventriculomegaly. A probably chronic focal right superior parietal infarction associated with dilatation of left central sulcus is seen. There is no midline shift, no abnormal intra- or extra- axial fluid accumulation. Greer and white matter differentiation is normal. Bone window images show no evidence of skull fracture. CT/CT head/brain wo IV con IMPRESSION: 1. Interval development of mild ventriculomegaly. 2. No intracranial hemorrhage or skull fracture is seen. 3. No evidence of space occupying lesion could be found. 4. 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 This was not evident on MRI of the brain on 11/16/2013. Repeat evaluation with noncontrast MRI of the brain is recommended. 5. The current plain CT scan of the brain shows no diagnostic evidence of acute cerebral infarction. Independent Historian Clinical information obtained from an independent historian. History obtained from or confirmed by: Other (Family member) External Record Review External record reviewed: Inpatient record, Office record, Outpatient record, Prior outpatient labs, Prior outpatient radiology, Primary care record and Outside ED record Prescription Management I considered prescription management with: Pain Medication Social Determinants Patient?s care significantly limited by Social Determinants of Health including: Other Social Determinant of Health Critical Care Time Critical Care Time Critical Care Time: Yes Total Critical Care Time: 37 Attestation: Critical care time in the amount of 37 minutes has been provided to the patient in terms of direct patient care, frequent reevaluation, review and interpretation of medical data and results, and management of potentially life-threatening conditions. This is all outside of any medical procedures. Discharge Plan Discharge Clinical Impression: Migraine Patient Disposition: Home, Self-Care Additional Instructions: Your lab work today is reassuring. Your EKG is normal. You tested negative for covid, flu, rsv. The CT of your head shows old, chronic area of ischemia. No new infarction or bleed. Your magnesium was noted to be low in ED and was repleted. You were given benadryl and reglan for your headache. Fioricet has been sent to your pharmacy for you to take for headache at home. It is recommended to not take this for more than 3 days at a time as this can cause rebound headache. You have been provided with a referral to [facility] [facility] Ophthalmology. Call them tomorrow morning to make an appointment. They will not call you. You have also been provided with a referral to [facility] Neurology. You may call them to make an appointment. They will not call you. Please follow up with PCP within 2 weeks. Return with new or worsening symptoms. In the case of emergency call 911. Prescriptions: New injalpquco-egruskohaevha-maxe [Fioricet] 50-300-40 mg capsule 1 cap PO Q8H PRN (Reason: pain (scale score 7-10)) Qty: 10 0RF No Action lisinopril 40 mg tablet 40 mg PO DAILY Qty: 30 1RF insulin glargine [Lantus Solostar U-100 Insulin] 100 unit/mL (3 mL) insulin pen 50 unit subcut DAILY Qty: 45 4RF Invokana 300 mg tablet 300 mg PO DAILY Qty: 30 5RF omeprazole 40 mg capsule,delayed release(DR/EC) 40 mg PO DAILY Qty: 90 0RF metformin 500 mg tablet 1,000 mg PO BID Qty: 360 2RF atorvastatin 40 mg tablet 40 mg PO DAILY Qty: 90 2RF Ozempic 0.25 mg or 0.5 mg (2 mg/3 mL) pen injector 0.5 mg subcut QWEEK Qty: 3 4RF Gvoke HypoPen 2-Pack 0.5 mg/0.1 mL auto-injector 1 mg subcut ONCE Qty: 0.2 4RF insulin lispro [Admelog SoloStar U-100 Insulin] 100 unit/mL insulin pen See Rx Instructions subcut TID 30 Days Qty: 30 6RF Rx Instructions: 15 u for small meals, 15 u for large, + 2 units for bg>200, + 3 units for BG >250, + 4 units bg >300mg/dl. Of note..for very light meal use only 6 units. subcut 3 times a day; (DME) FreeStyle Marty 2 Sensor Kit See Rx Instructions .ROUTE .COMPLEX Qty: 2 6RF Dose Instruction: DIRECTED CHANGE EVERY 14 DAYS Rx Instructions: DIRECTED CHANGE EVERY 14 DAYS (DME) FreeStyle Lite Strips Strip See Rx Instructions .ROUTE .COMPLEX Qty: 150 11RF Dose Instruction: DIRECTED 4 TIMES A DAY Rx Instructions: DIRECTED 4 TIMES A DAY alcohol swabs Pads, Medicated topical ferrous sulfate 325 mg (65 mg iron) tablet 325 mg PO DAILY (DME) pen needle, diabetic 32 gauge x 5/32 needle See Rx Instructions subcut QID Qty: 50 Rx Instructions: As directed aspirin 81 mg tablet,delayed release (DR/EC) 81 mg PO DAILY acetaminophen [Tylenol Extra Strength] 500 mg tablet 500 mg PO Q6H PRN (Reason: Pain) cholecalciferol (vitamin D3) 50 mcg (2,000 unit) tablet 50 mcg PO DAILY atenolol 50 mg tablet 50 mg PO DAILY triamcinolone acetonide 0.1 % cream 1 appl topical DAILY amlodipine 2.5 mg tablet 2.5 mg PO DAILY (DME) FreeStyle Marty 2 Hessel Misc See Rx Instructions .Route Qty: 1 0RF Rx Instructions: As directed Referrals: [facility] [place] Neuro/Sleep [Provider Group] Mal Yin MD [Primary Care Provider] - Prudencio Duron [Physician] - Print Language: British
[2024-03-18] MEDS: Magnesium Sulfate/H2O 2 GM/50 ML PIGGYBACK IV (13:54)
--- NOTE | 2024-03-18 13:54 | PC.NURSE ---
per Yessica LOPEZ, infuse Mag at 50ml hr for 1 hour
[2024-03-18 14:16] LABS: C Reactive Protein 0.69 mg/dL (< or = 0.50)
[2024-03-18 14:33] LABS: Erythrocyte Sedimentation Rate 58 MM/HR (0-20)
[2024-03-18] MEDS: diphenhydrAMINE HCL 50 MG/ML VIAL 25 MG IVPUSH (16:00)
[2024-03-18] MEDS: Metoclopramide HCl 10 MG/2 ML VIAL IVPUSH (16:02)
[2024-03-18 16:26] VITALS: BP 150/66; PULSE 84; RESP 18; TEMP 36.8; O2SAT 97
== END 2024-03-18 16:45 | disposition home or self-care (01) ==
PROVIDERS: Physician Assistant Medical; Emergency Provider Emergency Medicine; PCP Internal Medicine
DX: G43.909 Migraine, unspecified, not intractable, without status migrainosus (principal); I49.9 Cardiac arrhythmia, unspecified; E11.9 Type 2 diabetes mellitus without complications; E78.5 Hyperlipidemia, unspecified; I10 Essential (primary) hypertension; K76.0 Fatty (change of) liver, not elsewhere classified; K59.00 Constipation, unspecified; Z79.899 Other long term (current) drug therapy; Z03.818 Encounter for observation for suspected exposure to other biological agents ruled out
CPT/HCPCS: 0241U; 70450; 80053; 83735; 85025; 85652; 86140; 93005; 96365; 96366; 96375; 99284; J1200; J2765; J3475

== ENCOUNTER → 2024-03-18 12:01 | Outpatient (BNV) | payer OTHER, SELFPAY | PROVIDERS: Emergency Provider Emergency Medicine; PCP Internal Medicine; Visit Provider Internal Medicine Cardiovascular Disease | DX: I49.9 Cardiac arrhythmia, unspecified (principal) | CPT/HCPCS: 93010 ==

== ENCOUNTER 2024-03-24 15:55 | Outpatient (REF) | payer OTHER, SELFPAY ==
[2024-03-24 17:22] LABS: Erythrocyte Sedimentation Rate 81 MM/HR (0-20)
== END 2024-03-24 15:56 | disposition home or self-care (01) ==
LOC: HO.LNP 15:55
PROVIDERS: Visit Provider Internal Medicine
DX: G44.89 Other headache syndrome (principal)
CPT/HCPCS: 85652

== ENCOUNTER 2024-03-25 10:13 | Outpatient (AMB) | payer OTHER, SELFPAY ==
--- NOTE | 2024-03-25 10:18 | MHC.OFFVIS ---
Vital Signs 03/25/24 10:24 Height 5 ft Weight 171 lb BMI 33.4 BP 134/76 Blood Pressure Location Lt brachial Position Sitting Pulse 84 Pulse Oximetry (%) 98 Oxygen Delivery Method Room Air Intake Visit Reasons: Temporal artery Bx, severe migraine Intake Note: This patient presents for an assessment for temporal artery biposy. Patient c/o; reports had one episode of severe headache and blurry vision, reports Hx stroke. Induction Heating Equipment Setter Required: No Accompanied by: Self / Same As Patient Allergies GEL ELECTRODES Allergy (Mild, Uncoded 03/25/24 10:24) RASH Medication List - Last Reconciled 03/25/24 by Garrett Roy MD acetaminophen (Tylenol Extra Strength) 500 mg PO Q6H PRN alcohol swabs pad topical amlodipine 2.5 mg PO DAILY aspirin 81 mg PO DAILY atenolol 50 mg PO DAILY atorvastatin 40 mg PO DAILY blood sugar diagnostic (FreeStyle Lite Strips) DIRECTED 4 TIMES A DAY [id number] 50-300-40 mg (Fioricet) 1 cap PO Q8H PRN canagliflozin (Invokana) 300 mg PO DAILY cholecalciferol (vitamin D3) 50 mcg PO DAILY ferrous sulfate 325 mg PO DAILY flash glucose scanning reader (FreeStyle Marty 2 [place]) As directed flash glucose sensor (FreeStyle Marty 2 Sensor kit) DIRECTED CHANGE EVERY 14 DAYS glucagon (Gvoke HypoPen 2-Pack) 1 mg (0.2 mL) subcut ONCE insulin lispro (Admelog SoloStar U-100 Insulin lispro) 15 u for small meals, 15 u for large, + 2 units for bg>200, + 3 units for BG >250, + 4 units bg >300mg/dl. Of note..for very light meal use only 6 units. subcut 3 times a day; 30 days Lantus Solostar U-100 Insulin (insulin glargine) 50 units (0.5 mL) subcut DAILY NS lisinopril 40 mg PO DAILY metformin 1,000 mg (2 x 500 mg) PO BID omeprazole 40 mg PO DAILY pen needle, diabetic As directed semaglutide (Ozempic) 0.5 mg (0.736 mL) subcut QWEEK triamcinolone acetonide 0.1% 1 appl topical DAILY HPI HPI Temporal artery Bx, severe migraine: Details: 63 year female referred by Dr. Yin for temporal artery biopsy. The patient had apparently complained of pain on the temporal areas on both sides along with headaches. She says that this seemed to be worse on the right side. She describes some blurriness of vision on the right side as well. She says she had been recently diagnosed to have migraines about 6 months ago. Review of her records show she had a left temporal artery biopsy in 2016 and this was unremarkable. She also has multiple medical problems including fibromyalgia, obstructive sleep apnea, polyneuropathy, diabetes and hypertension. [facility] Medical History Temporal headache Urinary incontinence Chronic constipation Fibromyalgia Primary osteoarthritis of knees, bilateral NAFLD (nonalcoholic fatty liver disease) Tubular adenoma of colon Essential hypertension Neuropathy Osteoarthritis Fibromyalgia DARIEL on CPAP Upper GI bleed Hepatomegaly History of alcohol abuse Stroke Depression Anxiety Hyperlipidemia LDL goal <70 Obesity with body mass index of 30.0-39.9 Type 2 diabetes mellitus with diabetic polyneuropathy Surgical History History of temporal artery biopsy Hx of esophagogastroduodenoscopy Hx of colonoscopy Family History Father Diabetes Mother Hypertension Daughter Breast cancer Ovarian cancer Social History Household Members: Family Household Members Other:: adult child and grandchild Alcohol intake: former Patient Tobacco Use Status: Former Tobacco user Years Smoked: quit 10 years ago Current occupational status: disabled Current occupation: rt handed Review of Systems Const Denies chills, Denies fever(s) and Reports headache(s) ENT Reports headache(s) Card Denies chest pain, Denies dyspnea and Denies dyspnea on exertion Resp Denies cough, Denies dyspnea and Denies dyspnea on exertion GI Denies hematochezia and Denies change in bowel habits Denies hematuria Musc Reports abnormal gait, Reports back pain, Reports arthralgias and Reports limited range of motion Neuro Reports abnormal gait, Reports headache(s), Denies focal weakness and Denies convulsions Psych Denies depression and Denies mood swings Physical Exam Const Other: Obese looking, using a walker General: comfortable and no acute distress Orientation/consciousness: patient oriented x3 HEENT Other: Pulse palpable in the right temporal area Neck Neck: Yes no lymphadenopathy Resp Auscultation: clear to auscultation bilaterally Cardio Rhythm: regular rhythm GI Palpation (GI): Soft to palpation, nontender and no guarding Neuro General: patient oriented x3 Assessment & Plan Assessment & Plan (1) Temporal headache: Code(s): R51.9 - Headache, unspecified Category: Medical Plan: She was referred for temporal artery biopsy by Dr. Zackery Yin to rule out arteritis. I explained to her the technique of temporal artery biopsy under anesthesia. I reviewed the risks including but not limited to bleeding, infections, poor healing, nerve injury, hematoma, as well as the benefits and alternatives. I also explained to her what to expect postoperatively. She understands and wants to proceed. This will be scheduled under anesthesia in the operating room. Coding Level of Care Code Est Pt Level 3 (64163) Diagnoses Temporal headache R51.9
[2024-03-25 10:24] VITALS: BP 134/76; PULSE 84; O2SAT 98; BMI 33.4
== END 2024-03-25 10:46 | disposition home or self-care (01) ==
PROVIDERS: PCP Internal Medicine; Visit Provider Surgery
DX: R51.9 Headache, unspecified (principal)
CPT/HCPCS: 99214

== ENCOUNTER → 2024-03-25 10:13 | Outpatient (BNVA) | payer OTHER, SELFPAY | PROVIDERS: PCP Internal Medicine; Visit Provider Surgery | DX: R51.9 Headache, unspecified (principal) | CPT/HCPCS: 99212 ==

== ENCOUNTER 2024-04-03 08:52 | Day surgery (SDC) | payer OTHER, SELFPAY ==
[2024-04-01 10:56] VITALS: BMI 34.9
--- NOTE | 2024-04-01 13:38 | HO.ANESPROP2 ---
Documented by User: Argelia Smith NP 04/01/24 13:41 HPI - Anesthesia Eval Consult details Narrative: 63yo F for Right Temporal Artery Biopsy Prednisone 40mg daily started 03/2024 by PCP Anesthesia Pre-Procedure Meds Is the patient on any of the following meds?: GLP1/DPP4 and SGLT2 Inhib PMFSH Active Problems Active Problems: All Active Problems Bilateral shoulder pain (Acute) Bilateral knee pain (Acute) Acromioclavicular joint arthritis (Acute) Impingement syndrome, shoulder, left (Acute) Numbness and tingling of both legs (Acute) Cubital tunnel syndrome, bilateral (Acute) Bilateral carpal tunnel syndrome (Acute) Encounter for screening mammogram for malignant neoplasm of breast (Acute) Encounter for annual routine gynecological examination (Acute) Gastroparesis (Acute) Osteoarthritis of left ankle (Acute) Proteinuria (Acute) Nausea (Acute) Temporal headache (Acute) Chronic constipation (Acute) Fibromyalgia (Acute) Primary osteoarthritis of knees, bilateral (Acute) Type 2 diabetes mellitus with diabetic polyneuropathy (Acute) Essential hypertension (Acute) Hyperlipidemia LDL goal <70 (Acute) Obesity with body mass index of 30.0-39.9 (Acute) NAFLD (nonalcoholic fatty liver disease) (Acute) Past Medical History Medical History (Updated 04/03/24 @ 09:05 by Marge Long RN) Arthritis Anemia GI bleed Temporal headache Urinary incontinence Chronic constipation Fibromyalgia Primary osteoarthritis of knees, bilateral NAFLD (nonalcoholic fatty liver disease) Tubular adenoma of colon Essential hypertension Neuropathy Osteoarthritis DARIEL on CPAP Upper GI bleed Hepatomegaly History of alcohol abuse Stroke Depression Anxiety Hyperlipidemia LDL goal <70 Obesity with body mass index of 30.0-39.9 Type 2 diabetes mellitus with diabetic polyneuropathy Family History Family History Father Diabetes Mother Hypertension Daughter Breast cancer Ovarian cancer Surgical History Surgical History History of temporal artery biopsy Hx of esophagogastroduodenoscopy Hx of colonoscopy Social History Social History Household Members: Family Household Members Other:: adult child and grandchild Are you a primary urgent care physician to a significant other at home: No Do you presently have visiting nurse or other home services: No Alcohol intake: former Patient Tobacco Use Status: Former Tobacco user Years Smoked: quit 10 years ago Use of substances other than those prescribed or required for medical reasons: No Have you been hit, kicked, punched, or otherwise hurt by someone within the past year? If so, by whom?: No Are you DNR?: No Advance Directives: No Advance Directives Information Provided: Yes Advance Directives on File: No Recently lost weight without trying: No Eating poorly because of decreased appetite: No Nutrition Risks: No Nutritional Risk Patient : No : No Poor oral hygiene: Yes (full upper and lower dentures) Current occupational status: disabled Current occupation: rt handed Meds Allergies Allergy/AdvReac Type Severity Reaction Status Date / Time GEL ELECTRODES Allergy Mild RASH Uncoded 04/03/24 09:16 Home Medications ?Medication ?Instructions ?Recorded ?Confirmed ?Last Taken ?Type atenolol 50 mg tablet 50 mg PO DAILY 10/12/20 04/01/24 Unknown History alcohol swabs pad topical 11/01/20 03/25/24 Unknown History ferrous sulfate 325 mg (65 mg 325 mg PO DAILY 11/01/20 04/01/24 Unknown History iron) tablet pen needle, diabetic 32 gauge x #50 ea 11/01/20 03/25/24 Unknown History aspirin 81 mg tablet,delayed 81 mg PO DAILY 12/27/20 04/01/24 Unknown History release cholecalciferol (vitamin D3) 50 50 mcg PO DAILY 02/07/21 04/01/24 Unknown History mcg (2,000 unit) tablet acetaminophen 500 mg tablet 500 mg PO Q6H PRN Pain 11/21/21 04/01/24 Unknown History (Tylenol Extra Strength) amlodipine 2.5 mg tablet 2.5 mg PO DAILY 03/20/22 04/01/24 Unknown History atorvastatin 40 mg tablet 40 mg PO DAILY@1700 04/01/24 04/01/24 Unknown History insulin glargine 100 unit/mL (3 50 unit subcut BEDTIME 04/01/24 04/01/24 Unknown History mL) subcutaneous pen (Lantus Solostar U-100 Insulin) prednisone 20 mg tablet 40 mg PO DAILY 04/01/24 04/01/24 Unknown History Exam Height,Weight and Vital Signs: Height 5 ft 2 in Weight 86.636 kg Narrative Narrative: EKG 03/2024 Vent. Rate : 082 BPM Atrial Rate : 082 BPM P-R Int : 172 ms QRS Dur : 088 ms QT Int : 356 ms P-R-T Axes : 032 019 047 degrees QTc Int : 415 ms Normal sinus rhythm Normal ECG When compared with ECG of 03-APR-2023 10:11, Premature ventricular complexes are no longer Present CT head/brain wo IV con 03/2024 IMPRESSION: 1. Interval development of mild ventriculomegaly. 2. No intracranial hemorrhage or skull fracture is seen. 3. No evidence of space occupying lesion could be found. 4. 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 This was not evident on MRI of the brain on 11/16/2013. Repeat evaluation with noncontrast MRI of the brain is recommended. 5. The current plain CT scan of the brain shows no diagnostic evidence of acute cerebral infarction. Documented by User: Salma Hallman MD 04/03/24 11:50 HPI - Anesthesia Eval Anesthesia Pre-Procedure Meds If yes to any meds - educate patient: Pt education - increased risk of aspiration and/or euvolemic DKA and Pt education - possibility of cancelled proc at provider's discretion PMFSH Past Medical History Medical History (Updated 04/03/24 @ 09:05 by Marge Long RN) Arthritis Anemia GI bleed Temporal headache Urinary incontinence Chronic constipation Fibromyalgia Primary osteoarthritis of knees, bilateral NAFLD (nonalcoholic fatty liver disease) Tubular adenoma of colon Essential hypertension Neuropathy Osteoarthritis DARIEL on CPAP Upper GI bleed Hepatomegaly History of alcohol abuse Stroke Depression Anxiety Hyperlipidemia LDL goal <70 Obesity with body mass index of 30.0-39.9 Type 2 diabetes mellitus with diabetic polyneuropathy Family History Family History Father Diabetes Mother Hypertension Daughter Breast cancer Ovarian cancer Family history of problems with anesthesia: No Surgical History Surgical History History of temporal artery biopsy Hx of esophagogastroduodenoscopy Hx of colonoscopy History of Problems with Anesthesia: No Social History Social History Household Members: Family Household Members Other:: adult child and grandchild Are you a primary urgent care physician to a significant other at home: No Do you presently have visiting nurse or other home services: No Alcohol intake: former Patient Tobacco Use Status: Former Tobacco user Years Smoked: quit 10 years ago Use of substances other than those prescribed or required for medical reasons: No Have you been hit, kicked, punched, or otherwise hurt by someone within the past year? If so, by whom?: No Are you DNR?: No Advance Directives: No Advance Directives Information Provided: Yes Advance Directives on File: No Recently lost weight without trying: No Eating poorly because of decreased appetite: No Nutrition Risks: No Nutritional Risk Patient : No : No Poor oral hygiene: Yes (full upper and lower dentures) Current occupational status: disabled Current occupation: rt handed Meds Allergies Allergy/AdvReac Type Severity Reaction Status Date / Time GEL ELECTRODES Allergy Mild RASH Uncoded 04/03/24 09:16 Home Medications ?Medication ?Instructions ?Recorded ?Confirmed ?Last Taken ?Type atenolol 50 mg tablet 50 mg PO DAILY 10/12/20 04/01/24 Unknown History alcohol swabs pad topical 11/01/20 03/25/24 Unknown History ferrous sulfate 325 mg (65 mg 325 mg PO DAILY 11/01/20 04/01/24 Unknown History iron) tablet pen needle, diabetic 32 gauge x #50 ea 11/01/20 03/25/24 Unknown History aspirin 81 mg tablet,delayed 81 mg PO DAILY 12/27/20 04/01/24 Unknown History release cholecalciferol (vitamin D3) 50 50 mcg PO DAILY 02/07/21 04/01/24 Unknown History mcg (2,000 unit) tablet acetaminophen 500 mg tablet 500 mg PO Q6H PRN Pain 11/21/21 04/01/24 Unknown History (Tylenol Extra Strength) amlodipine 2.5 mg tablet 2.5 mg PO DAILY 03/20/22 04/01/24 Unknown History atorvastatin 40 mg tablet 40 mg PO DAILY@1700 04/01/24 04/01/24 Unknown History insulin glargine 100 unit/mL (3 50 unit subcut BEDTIME 04/01/24 04/01/24 Unknown History mL) subcutaneous pen (Lantus Solostar U-100 Insulin) prednisone 20 mg tablet 40 mg PO DAILY 04/01/24 04/01/24 Unknown History Exam Airway Mallampati Class: II TM Dist: >3cm Neck ROM: Full Denture: Upper and Lower Heart: rrr Lungs: cta Assessment and Plan Assessment Anesthesia Assessment: Anesthesia Plan Discussed and Chart Reviewed Final Anesthetic Review Family History of Problems with Anesthesia: No History of Problems with Anesthesia: No NPO: Yes ASA Class: III Final Preanesthetic Review: No Changes in Pt Med Stat, Meds/Allgs Chart Reviewed and Consent Obtained/Reviewed Patient Risk: Low Procedure Risk: Low Anesthetic Plan Anesthetic Plan: MAC: Disposition: Standard PACU
[2024-04-03 09:18] VITALS: BP 182/74; PULSE 66; RESP 16; TEMP 36.2; O2SAT 99
[2024-04-03 09:31] LABS: Glucose, Whole Blood 85 mg/dL (60-115)
[2024-04-03] MEDS: Lactated Ringers 1,000 ML 50 ML IVCONT (09:50)
--- NOTE | 2024-04-03 11:00 | MHC.SHP ---
Pre-Procedural Eval Section A - 24 Hr Update-Section A only Date of Service: 04/03/24 The patient is an INPATIENT: No Changes since office visit: No Cold of Flu in the past 2 weeks, No New Medical Problems, No Changes in Medication and No Patient answered all questions The patient has been examined within 24 hours of the surgical procedure. The History & Physical has been completed within 30 days and I have reviewed it.: Yes Section B - Complete if H&P > 30 days Chief Complaint: Headache, unspecified Allergies: Allergies Allergy/AdvReac Type Severity Reaction Status Date / Time GEL ELECTRODES Allergy Mild RASH Uncoded 04/03/24 09:16 Plan I have reviewed the history and physical and performed a pertinent physical examination on my patient. No changes have occurred unless specified. Time Spent With Patient Time: Total time managing care of this patient today ____ minutes.
[2024-04-03 12:31] VITALS: BP 174/71; PULSE 62; RESP 16; TEMP 36.1; O2SAT 98
--- NOTE | 2024-04-03 12:32 | P.OP_ITS ---
Operative Note Operative Note Date of Service: 04/03/24 Narrative: Preop diagnosis: Temporal headache Postop diagnosis: The same Procedure: Right temporal artery biopsy under anesthesia Surgeon: Garrett Roy MD The patient is a 63-year-old female who has been complaining of temporal headaches mostly on the right side. She was referred to me by her primary care physician for temporal artery biopsy. She understood the technique of the procedure under monitored anesthesia care, as well as the risks, benefits, and alternatives. She was brought to the operating room. She was placed in reclining position under monitored anesthesia care. The head was turned to the side and secured with wide tape. The right temporal area was prepped and draped in the usual sterile fashion. A surgical time-out was done. I used the Doppler probe to lizz the track of the pulsation of the temporal artery. I infiltrated this area with lidocaine 1%. I made a short incision transversely blade 15. this carried down through the full-thickness of the skin subcutaneous fat. We then gently dissected with fine hemostats until was able to visualize the temporal artery along with this pulsation. I gently dissected this artery. I applied clamps proximal and distal. I divided a 1 cm segment of the artery and this was sent as specimen. I ligated both proximal distal ends with Polysorb 3-0 ties. I irrigated. I closed the incision with full-thickness nylon 4-0 interrupted sutures. The area was infiltrated with Marcaine 0.5% for postop analgesia. Sterile strips were applied. The procedure was completed. The patient tolerated the procedure well. There were no immediate co mplications. Initial and final counts of sponges and instruments were correct. Estimated blood loss was less than 5 cc. The patient was awakened and transferred to the recovery room with stable vital signs.
[2024-04-03 12:45] VITALS: BP 165/89; PULSE 90; RESP 18; O2SAT 98
[2024-04-03 13:00] VITALS: BP 172/70; PULSE 71; RESP 15; TEMP 36.6; O2SAT 98
== END 2024-04-03 13:49 | disposition home or self-care (01) ==
PROVIDERS: PCP Internal Medicine; Visit Provider Surgery
PROC: (CPT 37609; principal; 2024-04-03 11:00)
DX: R51.9 Headache, unspecified (principal); I10 Essential (primary) hypertension; E11.9 Type 2 diabetes mellitus without complications; G47.33 Obstructive sleep apnea (adult) (pediatric); Z79.4 Long term (current) use of insulin; Z79.82 Long term (current) use of aspirin; Z79.899 Other long term (current) drug therapy; Z99.89 Dependence on other enabling machines and devices
CPT/HCPCS: 37609; 82947; 88305; J1100; J2250; J2704; J2795

== ENCOUNTER → 2024-04-03 08:52 | Outpatient (BNV) | payer OTHER, SELFPAY | PROVIDERS: PCP Internal Medicine; Visit Provider Surgery | DX: R51.9 Headache, unspecified (principal) | CPT/HCPCS: 37609 ==

== ENCOUNTER → 2024-04-16 11:07 | Outpatient (BNVA) | payer OTHER, SELFPAY | PROVIDERS: PCP Internal Medicine; Visit Provider Surgery | DX: Z48.811 Encounter for surgical aftercare following surgery on the nervous system (principal) | CPT/HCPCS: 99211 ==

== ENCOUNTER 2024-04-28 12:07 | Outpatient (AMB) | payer OTHER, SELFPAY ==
[2024-04-28 12:38] VITALS: BP 138/78; PULSE 81; O2SAT 97
--- NOTE | 2024-04-28 12:38 | MHC.OFFVIS ---
Vital Signs 04/28/24 12:38 Weight 174 lb 2.643 oz BP 138/78 Blood Pressure Location Rt brachial Position Sitting Pulse 81 Pulse Source Pulse Oximeter Pulse Oximetry (%) 97 Oxygen Delivery Method Room Air Intake Visit Reasons: OA/CM Allergies GEL ELECTRODES Allergy (Mild, Uncoded 04/28/24 12:42) RASH Medication List - Last Reconciled 04/28/24 by Christiano Jeffers MD acetaminophen (Tylenol Extra Strength) 500 mg PO Q6H PRN alcohol swabs pad topical amlodipine 2.5 mg PO DAILY aspirin 81 mg PO DAILY atenolol 50 mg PO DAILY atorvastatin 40 mg PO DAILY@1700 blood sugar diagnostic (FreeStyle Lite Strips) DIRECTED 4 TIMES A DAY pgekfstkqh-mwxotqrkivwxh-yvvk 50-300-40 mg (Fioricet) 1 cap PO Q8H PRN canagliflozin (Invokana) 300 mg PO DAILY cholecalciferol (vitamin D3) 50 mcg PO DAILY ferrous sulfate 325 mg PO DAILY flash glucose scanning reader (FreeStyle Marty 2 [place]) As directed flash glucose sensor (FreeStyle Marty 2 Sensor kit) DIRECTED CHANGE EVERY 14 DAYS glucagon (Gvoke HypoPen 2-Pack) 1 mg (0.2 mL) subcut ONCE insulin glargine (Lantus Solostar U-100 Insulin) 50 units subcut BEDTIME insulin lispro (Admelog SoloStar U-100 Insulin lispro) 15 u for small meals, 15 u for large, + 2 units for bg>200, + 3 units for BG >250, + 4 units bg >300mg/dl. Of note..for very light meal use only 6 units. subcut 3 times a day; 30 days lisinopril 40 mg PO DAILY metformin 1,000 mg (2 x 500 mg) PO BID omeprazole 40 mg PO DAILY pen needle, diabetic As directed semaglutide (Ozempic) 0.5 mg (0.736 mL) subcut QWEEK tramadol 50 mg PO TID PRN HPI Comments Details: This is a 63-year-old female with history of generalized osteoarthritis and fibromyalgia who presents for follow-up. Last month patient went to the emergency room due to abrupt onset of headache that started in the back of her head then traveled towards her temples and forehead. This was associated with blurry vision affecting her right eye. Her ESR was significantly elevated at 81. Temporal arteritis was suspected. Patient was started on prednisone by her PCP for about 8 days without much improvement. Two weeks after her hospital visit she had a right temporal artery biopsy which was negative for arteritis. Patient was evaluated by her business management analyst for her blurry vision and was told that she has abnormalities in her lens She states that she had a similar episode 2 years ago and she had a left temporal artery biopsy at that time it was also negative for arteritis. Patient was taking Lyrica for her fibromyalgia. She states that it was discontinued last year as it was not very helpful. [facility] Medical History Arthritis Anemia GI bleed Temporal headache Urinary incontinence Chronic constipation Fibromyalgia Primary osteoarthritis of knees, bilateral NAFLD (nonalcoholic fatty liver disease) Tubular adenoma of colon Essential hypertension Neuropathy Osteoarthritis DARIEL on CPAP Upper GI bleed Hepatomegaly History of alcohol abuse Stroke Depression Anxiety Hyperlipidemia LDL goal <70 Obesity with body mass index of 30.0-39.9 Type 2 diabetes mellitus with diabetic polyneuropathy Surgical History History of temporal artery biopsy Hx of esophagogastroduodenoscopy Hx of colonoscopy Family History Father Diabetes Mother Hypertension Daughter Breast cancer Ovarian cancer Social History Household Members: Family Household Members Other:: adult child and grandchild Are you a primary youth care specialist to a significant other at home: No Do you presently have visiting nurse or other home services: No Alcohol intake: former Patient Tobacco Use Status: Former Tobacco user Years Smoked: quit 10 years ago Current occupational status: disabled Current occupation: rt handed Female Reproductive History Menstrual Total pregnancies: 4 Number of Living Children: 4 Review of Systems Const Reports headache(s) Eyes Reports blurry vision ENT Reports headache(s) and Reports neck pain Musc Reports back pain, Reports arthralgias and Reports neck pain Neuro Reports headache(s) Physical Exam Vital Signs: Last Vital Signs Pulse 81 04/28/24 12:38 BP 138/78 04/28/24 12:38 Pulse Ox 97 04/28/24 12:38 Oxygen Delivery Method Room Air 04/28/24 12:38 Const General: cooperative, healthy appearing and comfortable Nutritional Appearance: obese Orientation/consciousness: patient oriented x3 Limitations: ambulation with walker HEENT Head: Yes normocephalic and Yes atraumatic Mouth: moist mucous membranes Resp Effort & Inspection: normal respiratory effort and able to speak in complete sentences Auscultation: clear to auscultation bilaterally Cardio Rate: regular rate Rhythm: regular rhythm Skin General skin exam: no rashes or lesions noted Neuro General: patient oriented x3 Extrem Other: Mild right 5th flexor tendon tenderness No active synovitis otherwise Normal nailfold capillaroscopy Assessment & Plan Assessment & Plan (1) Temporal headache: Code(s): R51.9 - Headache, unspecified Category: Medical Plan: This is a 63-year-old female with history of generalized osteoarthritis and fibromyalgia who presents for follow-up. Last month patient developed abrupt onset of headache and right eye blurry vision, her ESR was elevated and temporal arteritis was suspected. She had temporal artery biopsy 2 weeks later and it was negative for arteritis. Patient mentions a similar episode 2 years ago which triggered left temporal artery biopsy which was also negative. Patient was prescribed prednisone by her PCP without much improvement. She continues to have blurry vision. She follows up with her business management analyst. I will see any signs suggestive of an autoimmune rheumatic disease today. Discussed symptoms and signs suggestive of an autoimmune rheumatic disease. Patient to follow-up as needed Plan I spent 30 minutes reviewing patient's chart, evaluating patient, counseling patient and documenting in the chart Coding Level of Care Code Est Pt Level 4 (53390) Diagnoses Temporal headache R51.9
== END 2024-04-28 13:06 | disposition home or self-care (01) ==
PROVIDERS: PCP Internal Medicine; Visit Provider Student in an Organized Health Care Education/Training Program
DX: R51.9 Headache, unspecified (principal)
CPT/HCPCS: 99214

== ENCOUNTER → 2024-04-28 12:07 | Outpatient (BNVA) | payer OTHER, SELFPAY | PROVIDERS: PCP Internal Medicine; Visit Provider Student in an Organized Health Care Education/Training Program | DX: R51.9 Headache, unspecified (principal) | CPT/HCPCS: 99212 ==

== ENCOUNTER 2024-05-11 09:23 | Outpatient (AMB) | payer OTHER, SELFPAY ==
--- NOTE | 2024-05-11 09:33 | MHC.OFFVIS ---
Vital Signs 05/11/24 09:46 Height 5 ft Weight 190 lb BMI 37.1 BP 138/68 Blood Pressure Location Lt brachial Position Sitting Respiration 14 Pulse 78 Pulse Source Pulse Oximeter Pulse Oximetry (%) 99 Oxygen Delivery Method Room Air Intake Visit Reasons: Back/Knee Pain Allergies GEL ELECTRODES Allergy (Mild, Uncoded 05/11/24 09:47) RASH Medication List - Last Reconciled 05/11/24 by Monica Brock LPN acetaminophen (Tylenol Extra Strength) 500 mg PO Q6H PRN alcohol swabs pad topical amlodipine 2.5 mg PO DAILY aspirin 81 mg PO DAILY atenolol 50 mg PO DAILY atorvastatin 40 mg PO DAILY@1700 blood sugar diagnostic (FreeStyle Lite Strips) DIRECTED 4 TIMES A DAY dgfupokcii-gqwgfaadxswei-nxqt 50-300-40 mg (Fioricet) 1 cap PO Q8H PRN canagliflozin (Invokana) 300 mg PO DAILY cholecalciferol (vitamin D3) 50 mcg PO DAILY ferrous sulfate 325 mg PO DAILY flash glucose scanning reader (Osiris TherapeuticsStyle Marty 2 [place]) As directed flash glucose sensor (FreeStyle Marty 2 Sensor kit) DIRECTED CHANGE EVERY 14 DAYS glucagon (Gvoke HypoPen 2-Pack) 1 mg (0.2 mL) subcut ONCE insulin glargine (Lantus Solostar U-100 Insulin) 50 units subcut BEDTIME insulin lispro (Admelog SoloStar U-100 Insulin lispro) 15 u for small meals, 15 u for large, + 2 units for bg>200, + 3 units for BG >250, + 4 units bg >300mg/dl. Of note..for very light meal use only 6 units. subcut 3 times a day; 30 days lisinopril 40 mg PO DAILY metformin 1,000 mg (2 x 500 mg) PO BID omeprazole 40 mg PO DAILY pen needle, diabetic As directed semaglutide (Ozempic) 0.5 mg (0.736 mL) subcut QWEEK tramadol 50 mg PO TID PRN HPI HPI Back/Knee Pain: Details: 63-year-old female who presents today to the office for left knee and right neck/shoulder pain The patient reports 100% relief ongoing following the right knee injection. Her right knee pain is stable; however, her left knee has started flaring up. She has never had any injections on the left knee. She has a history of diabetes mellitus complicated by peripheral neuropathy. She has done physical therapy for knee. She reports right shoulder pain, which is tender on palpation. She states that her pain worsened after the carpal tunnel surgery. She also has some numbness in her arm and fingers, associated with occasional burning especially in the fingers. She sleeps on the hospital bed with three pillows and a donut-shaped pillow to support her neck at night. She has tried pregabalin in the past which did not help, she has not tried gabapentin or duloxetine. Past procedures: 02/28/24: Right knee injection with Kenalo% relief, ongoing. 12/27/2023: Bilateral subacromial shoulder bursa injections, ultrasound guided: >70% relief. 06/17/2023: Bilateral acromioclavicular joint injection: 75% relief. 06/17/2023: Right diagnostic infrapatellar saphenous nerve block: 100% relief. [facility] Medical History Arthritis Anemia GI bleed Temporal headache Urinary incontinence Chronic constipation Fibromyalgia Primary osteoarthritis of knees, bilateral NAFLD (nonalcoholic fatty liver disease) Tubular adenoma of colon Essential hypertension Neuropathy Osteoarthritis DARIEL on CPAP Upper GI bleed Hepatomegaly History of alcohol abuse Stroke Depression Anxiety Hyperlipidemia LDL goal <70 Obesity with body mass index of 30.0-39.9 Type 2 diabetes mellitus with diabetic polyneuropathy Surgical History History of temporal artery biopsy Hx of esophagogastroduodenoscopy Hx of colonoscopy Family History Father Diabetes Mother Hypertension Daughter Breast cancer Ovarian cancer Social History Household Members: Family Household Members Other:: adult child and grandchild Are you a primary home care scheduler to a significant other at home: No Do you presently have visiting nurse or other home services: No Alcohol intake: former Patient Tobacco Use Status: Former Tobacco user Years Smoked: quit 10 years ago Current occupational status: disabled Current occupation: rt handed Review of Systems Const All systems reviewed & are unremarkable except as noted in HPI and below Physical Exam Vital Signs: Last Vital Signs Pulse 78 05/11/24 09:46 Resp 14 05/11/24 09:46 BP 138/68 05/11/24 09:46 Pulse Ox 99 05/11/24 09:46 Oxygen Delivery Method Room Air 05/11/24 09:46 BMI result Body Mass Index 37.1 General: Appears afebrile. Alert and oriented. Mood and affect appropriate. Follows and participates in conversation appropriately. Respiratory effort is unlabored. Able to transition from sit to stand unassisted. Ambulates with bilaterally normal heel strike and toe off. Results Reviewed Results Reviewed: No imaging is available for review. Assessment & Plan Assessment & Plan (1) Cervical radiculitis: Code(s): M54.12 - Radiculopathy, cervical region Category: Medical (2) Bilateral knee pain: Code(s): M25.561 - Pain in right knee; M25.562 - Pain in left knee Category: Medical (3) Diabetic neuropathy: Code(s): E11.40 - Type 2 diabetes mellitus with diabetic neuropathy, unspecified Category: Medical Plan A referral was provided to physical therapy for cervical radicular pain referred to the shoulder and arm. The patient will receive a call to schedule an appointment. Advised to continue home exercises for neck. Discussed gel injections vs. cortisone injections as a possible treatment option for left knee pain. Informed the patient that insurance approval is required. We will file a PA for approval of DURANT injections in setting of diabetes mellitus complicated by peripheral neuropathy making her a suboptimal candidate for corticosteroid injections. Discussed the risks and benefits of the procedure with the patient in detail. All questions were answered. The patient is on board with the plan. I also prescribed her gabapentin 300 mg twice daily as a trial to see if that might help with her neuropathy symptoms. If this is not helpful, we can trial duloxetine in the future. Justification for interventional therapy: ? Patient with average pain > 6/10 ? Patient has exhausted conservative therapy . Patient has a good understanding of their pain condition and has appropriate mental and social support Scribed for Dr. Oneill by Johnnie Flores, medical assistant per diem, on 05/11/2024. I, Dr. Oneill, have personally reviewed and agree with the information entered by the scribe. Orders: Orders PT Evaluation and Treatment Today M54.12 - Radiculopathy, cervical region Medications: New gabapentin 300 mg PO BID 60 caps 0RF Coding Level of Care Code Est Pt Level 4 (20952) Diagnoses Cervical radiculitis M54.12 Bilateral knee pain M25.561; M25.562 Diabetic neuropathy E11.40
[2024-05-11 09:46] VITALS: BP 138/68; PULSE 78; RESP 14; O2SAT 99; BMI 37.1
== END 2024-05-11 10:11 | disposition home or self-care (01) ==
PROVIDERS: PCP Internal Medicine; Visit Provider Internal Medicine
DX: M54.12 Radiculopathy, cervical region (principal); M25.561 Pain in right knee; M25.562 Pain in left knee; E11.40 Type 2 diabetes mellitus with diabetic neuropathy, unspecified
CPT/HCPCS: 99214

== ENCOUNTER → 2024-05-11 09:23 | Outpatient (BNVA) | payer OTHER, SELFPAY | PROVIDERS: PCP Internal Medicine; Visit Provider Internal Medicine | DX: M54.12 Radiculopathy, cervical region (principal); M25.561 Pain in right knee; M25.562 Pain in left knee; E11.40 Type 2 diabetes mellitus with diabetic neuropathy, unspecified | CPT/HCPCS: 99212 ==

== ENCOUNTER 2024-05-14 11:10 | Outpatient (REF) | payer OTHER, SELFPAY ==
[2024-05-14 12:35] LABS: Blood Urea Nitrogen 15 mg/dL (9-16); Estimated Glomerular Filt Rate > 60
== END 2024-05-14 11:11 | disposition home or self-care (01) ==
LOC: HO.LAB 11:10
PROVIDERS: PCP Internal Medicine; Visit Provider Psychiatry & Neurology Neurology
DX: G43.009 Migraine without aura, not intractable, without status migrainosus (principal); M79.7 Fibromyalgia; G62.9 Polyneuropathy, unspecified; R26.89 Other abnormalities of gait and mobility; Z86.73 Personal history of transient ischemic attack (TIA), and cerebral infarction without residual deficits
CPT/HCPCS: 36415; 82565; 84520

== ENCOUNTER 2024-06-12 09:21 | Outpatient (AMB) | payer OTHER, SELFPAY ==
[2024-06-12 09:22] VITALS: BP 138/68; PULSE 75; BMI 33.8
--- NOTE | 2024-06-12 09:22 | A.OFFVIS_ITS ---
Vital Signs 06/12/24 09:22 Height 5 ft Weight 172 lb 13.478 oz BMI 33.8 BP 138/68 Blood Pressure Location Lt brachial Position Sitting Pulse 75 Pulse Source Pulse Oximeter Intake Visit Reasons: DM/LVM Intake Note: Patient presents today for D2MO follow up visit. Last Diabetic Eye exam: 06/2024 Last Podiatry Visit: Doesn't have one Random Glucose: 112 mg/dl HgA1c: 7.5% Business Transformation Analyst Required: No Accompanied by: Self / Same As Patient Allergies GEL ELECTRODES Allergy (Mild, Uncoded 06/12/24 09:27) RASH Medication List - Last Reconciled 06/12/24 by Darcy Mason PA-C acetaminophen (Tylenol Extra Strength) 500 mg PO Q6H PRN alcohol swabs pad topical amlodipine 2.5 mg PO DAILY aspirin 81 mg PO DAILY atenolol 50 mg PO DAILY atorvastatin 40 mg PO DAILY@1700 blood sugar diagnostic (FreeStyle Lite Strips) DIRECTED 4 TIMES A DAY xprrgfzeva-epimotmrihtua-tyiq 50-300-40 mg (Fioricet) 1 cap PO Q8H PRN canagliflozin (Invokana) 300 mg PO DAILY cholecalciferol (vitamin D3) 50 mcg PO DAILY ferrous sulfate 325 mg PO DAILY flash glucose scanning reader (FreeStyle Marty 2 [place]) As directed flash glucose sensor (FreeStyle Marty 2 Sensor kit) DIRECTED CHANGE EVERY 14 DAYS gabapentin 300 mg PO BID glucagon (Gvoke HypoPen 2-Pack) 1 mg (0.2 mL) subcut ONCE insulin glargine (Lantus Solostar U-100 Insulin) 50 units subcut BEDTIME insulin lispro (Admelog SoloStar U-100 Insulin lispro) 15 u for small meals, 15 u for large, + 2 units for bg>200, + 3 units for BG >250, + 4 units bg >300mg/dl. Of note..for very light meal use only 6 units. subcut 3 times a day; 30 days lisinopril 40 mg PO DAILY metformin 500 mg PO BID 90 days omeprazole 40 mg PO DAILY pen needle, diabetic As directed semaglutide (Ozempic) 1 mg (0.75 mL) subcut QWEEK sumatriptan succinate mg PO HPI HPI DM/LVM: Details: Patient is a 63 yo female with DM type 2 diagnosed 2009, who presents for visit for follow up management of diabetes . She last saw Dr. Wray in March. Past medical history: HTN, HLD. fibromyalgia, ostearthritis, DARIEL, neuropathy She states her a1c may not be that great because she was recently on prednisone. Her A1c today is 7.5, Micro and macrovascular complications: +neuropathy, +CVA, +PVD, microalbuminuria Diabetes medications: Ozempic 0.5 mg Qwkly ., Lantus 50 units, Humalog 6 units for very light meal such as salad and meat. 12 units for small meals and 14 units for large meals, with a correction of plus 2 units for blood sugars over 200, +3 units for blood sugars over 250 and plus 5 units for blood sugars over 300, metformin 1000 mg 1 tablet twice a day. Invokana 300mg daily, metformin 1000 mg in the morning and 500 in the evening. -states that she recently cut down her metformin dosing because of the hypoglycemia around dinnertime. She also has started to take only 12 units with dinner. That has seemed to prevent overnight lows. Blood glucose monitoring: Marty download shows she is using the sensor 74% of the time. Average glucose 156 with G mi of 7% and variability 26.8% glucose is in target range 74% of the time with 27% hyperglycemia and 0% hypoglycemia. Hypoglycemia is occurring primarily after dinner. States that she does not normally want to eat anything excessive at dinnertime. She finds herself smacking at night before going to bed. Symptoms reported: + numbness, tingling, cramping in toes and hands. Hypoglycemia: happens daily after dinner Symptoms of shakiness and sweatiness. 4 oz of juice or 2 tb sugar or glucose tabs. Hyperglycemia: + urinary frequency, + nocturia (2x) , denies polydypsia She is on an PRIYA-inhibitor and statin [facility] Medical History Arthritis Anemia GI bleed Temporal headache Urinary incontinence Chronic constipation Fibromyalgia Primary osteoarthritis of knees, bilateral NAFLD (nonalcoholic fatty liver disease) Tubular adenoma of colon Essential hypertension Neuropathy Osteoarthritis DARIEL on CPAP Upper GI bleed Hepatomegaly History of alcohol abuse Stroke Depression Anxiety Hyperlipidemia LDL goal <70 Obesity with body mass index of 30.0-39.9 Type 2 diabetes mellitus with diabetic polyneuropathy Surgical History History of temporal artery biopsy Hx of esophagogastroduodenoscopy Hx of colonoscopy Family History Father Diabetes Mother Hypertension Daughter Breast cancer Ovarian cancer Social History Household Members: Family Household Members Other:: adult child and grandchild Are you a primary medicare interviewer to a significant other at home: No Do you presently have visiting nurse or other home services: No Alcohol intake: former Patient Tobacco Use Status: Former Tobacco user Years Smoked: quit 10 years ago Current occupational status: disabled Current occupation: rt handed Physical Exam Vital Signs: Last Vital Signs Pulse 75 06/12/24 09:22 BP 138/68 06/12/24 09:22 BMI result Body Mass Index 33.8 Const Orientation/consciousness: patient oriented x3 Neck Neck: Yes no lymphadenopathy Thyroid: Thyroid normal Carotids: no bruits Resp Auscultation: clear to auscultation bilaterally Cardio Rate: regular rate Rhythm: regular rhythm Heart sounds: S1 normal heart sound present and S2 normal heart sound present Peripheral pulses: dorsalis pedis present Neuro General: patient oriented x3, gait normal and no focal motor deficits Extrem Other: Monofilament sensation present on the right. Absent on the left. Vibratory sensation diminished on the right and absent on the left. Skin intact. General: Yes normal to inspection Results AMB Hemoglobin A1c AMB Hemoglobin A1c 7.5 % Last Edit by RADHA Sue on 06/12/24 09:38 Results Reviewed Results Reviewed: Laboratory Last Values Glucose (Clinic) 112 mg/dL (60-115) 06/12/24 09:29 Hgb A1c (Clinic) 7.5 % (4.0-6.0) H 06/12/24 09:32 Laboratory Tests 12/13/23 03/09/24 03/18/24 09:57 11:39 11:17 BUN Creatinine Estimated GFR Glucose (Clinic) Hgb A1c (Clinic) 7.1 H AST 18 ALT 8 Alkaline Phosphatase 74 Triglycerides 176 H Cholesterol 177 LDL Cholesterol, Calc 98 HDL Cholesterol 44 05/14/24 06/12/24 06/12/24 11:27 09:29 09:32 BUN 15 Creatinine 0.81 Estimated GFR > 60 Glucose (Clinic) 112 Hgb A1c (Clinic) 7.5 H AST ALT Alkaline Phosphatase Triglycerides Cholesterol LDL Cholesterol, Calc HDL Cholesterol Laboratory Tests 12/13/23 09:56 Urine Creatinine 70.23 Urine Microalbumin 38.0 Microalb/Creat Ratio 54.1 H Assessment & Plan Assessment & Plan (1) Type 2 diabetes mellitus with diabetic polyneuropathy: Code(s): E11.42 - Type 2 diabetes mellitus with diabetic polyneuropathy Category: Medical Qualifiers: 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 I will increase her Ozempic. Have encouraged her to continue with the smaller dosage of Humalog at dinner time. Will follow-up in 3 months. Sooner if needed. Does not want to upgrade her freestyle Marty. On gabapentin for pain relief. (2) Essential hypertension: Code(s): I10 - Essential (primary) hypertension Category: Medical Plan: BP WNL today. Continue current regimen with the lisinopril 40 mg. (3) Hyperlipidemia LDL goal <70: Code(s): E78.5 - Hyperlipidemia, unspecified Category: Medical Plan: Continue on atorvastatin 40 mg. 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) use of insulin Medications: New semaglutide (Ozempic) 1 mg (0.75 mL) subcut QWEEK 3 mL 3RF Changed From metformin 1,000 mg (2 x 500 mg) PO BID 360 tabs 2RF To metformin 500 mg PO BID 90 days 180 tabs 2RF Discontinued semaglutide (Ozempic) Discontinued Reason: Doctor's Order 0.5 mg (0.736 mL) subcut QWEEK 3 mL 4RF Coding Level of Care Code Est Pt Level 4 (82210) Diagnoses Type 2 diabetes mellitus with diabetic polyneuropathy, with long-term current use of insulin E11.42; Z79.4 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
[2024-06-12 09:33] LABS: Glucose, Whole Blood 112 mg/dL (60-115)
== END 2024-06-12 10:04 | disposition home or self-care (01) ==
PROVIDERS: PCP Internal Medicine; Visit Provider Physician Assistant
DX: E11.42 Type 2 diabetes mellitus with diabetic polyneuropathy (principal); Z79.4 Long term (current) use of insulin; I10 Essential (primary) hypertension; E78.5 Hyperlipidemia, unspecified; Z13.9 Encounter for screening, unspecified
CPT/HCPCS: 99214

== ENCOUNTER 2024-06-22 09:12 | Outpatient (REF) | payer OTHER, SELFPAY ==
[2024-06-22 10:13] LABS: Estimated Average Glucose 163 mg/dL; Hemoglobin A1c % 7.3 % (<6.0)
[2024-06-22 10:42] LABS: Alanine Aminotransferase 7 U/L (0-31); Albumin Level 4.3 g/dL (3.5-5.0); Alkaline Phosphatase 73 U/L (39-117); Aspartate Amino Transferase 17 U/L (5-31); Bilirubin Direct 0.1 mg/dL (0.0-0.5); Bilirubin Total 0.4 mg/dL (0.0-1.0); Cholesterol 175 mg/dL (<200); Glucose Fasting 143 mg/dL (60-99); HDL Cholesterol 40 mg/dL (>40); LDL Cholesterol Calculated 97 mg/dL (<100); Total Protein 7.3 g/dL (6.5-8.0); Triglycerides 192 mg/dL (<150)
[2024-06-22 11:37] LABS: Reflex LDLD? No
== END 2024-06-22 09:13 | disposition home or self-care (01) ==
LOC: HO.LAB 09:12
PROVIDERS: PCP Internal Medicine; Visit Provider Internal Medicine
DX: E11.9 Type 2 diabetes mellitus without complications (principal); E78.00 Pure hypercholesterolemia, unspecified; M25.562 Pain in left knee; M25.561 Pain in right knee; M19.90 Unspecified osteoarthritis, unspecified site
CPT/HCPCS: 20610; 36415; 80061; 80076; 82947; 83036; 99212; J2795; J3301

== ENCOUNTER 2024-06-22 10:21 | Outpatient (AMB) | payer OTHER, SELFPAY ==
--- NOTE | 2024-06-22 10:23 | MHC.OFFVIS ---
Vital Signs 06/22/24 10:24 Height 5 ft Weight 173 lb BMI 33.8 BP 118/58 L Blood Pressure Location Rt brachial Position Sitting Respiration 14 Pulse 71 Pulse Source Pulse Oximeter Pulse Oximetry (%) 97 Oxygen Delivery Method Room Air Intake Visit Reasons: Knee pain follow up Allergies GEL ELECTRODES Allergy (Mild, Uncoded 06/22/24 10:26) RASH Medication List - Last Reconciled 06/22/24 by Monica Brock LPN acetaminophen (Tylenol Extra Strength) 500 mg PO Q6H PRN alcohol swabs pad topical amlodipine 2.5 mg PO DAILY aspirin 81 mg PO DAILY atenolol 50 mg PO DAILY atorvastatin 40 mg PO DAILY@1700 blood sugar diagnostic (FreeStyle Lite Strips) DIRECTED 4 TIMES A DAY yocmnqgbep-mdnztlkrpaefm-broq 50-300-40 mg (Fioricet) 1 cap PO Q8H PRN canagliflozin (Invokana) 300 mg PO DAILY cholecalciferol (vitamin D3) 50 mcg PO DAILY ferrous sulfate 325 mg PO DAILY flash glucose scanning reader ([employer] Marty 2 [place]) As directed flash glucose sensor (FreeStyle Marty 2 Sensor kit) DIRECTED CHANGE EVERY 14 DAYS gabapentin 300 mg PO BID glucagon (Gvoke HypoPen 2-Pack) 1 mg (0.2 mL) subcut ONCE insulin glargine (Lantus Solostar U-100 Insulin) 50 units subcut BEDTIME insulin lispro (Admelog SoloStar U-100 Insulin lispro) 15 u for small meals, 15 u for large, + 2 units for bg>200, + 3 units for BG >250, + 4 units bg >300mg/dl. Of note..for very light meal use only 6 units. subcut 3 times a day; 30 days lisinopril 40 mg PO DAILY metformin 500 mg PO BID 90 days omeprazole 40 mg PO DAILY pen needle, diabetic As directed semaglutide (Ozempic) 1 mg (0.75 mL) subcut QWEEK sumatriptan succinate mg PO HPI HPI Knee pain follow up: Details: 63-year-old female who presents today to the office for follow up of knee pain. Denies any recent cough, cold, infection, fever or other significant changes in medical history since last office visit.? Past procedures: 02/28/24: Right knee injection with Kenalo% relief, ongoing. 12/27/2023: Bilateral subacromial shoulder bursa injections, ultrasound guided: >70% relief. 06/17/2023: Bilateral acromioclavicular joint injection: 75% relief. 06/17/2023: Right diagnostic infrapatellar saphenous nerve block: 100% relief. [facility] Medical History Arthritis Anemia GI bleed Temporal headache Urinary incontinence Chronic constipation Fibromyalgia Primary osteoarthritis of knees, bilateral NAFLD (nonalcoholic fatty liver disease) Tubular adenoma of colon Essential hypertension Neuropathy Osteoarthritis DARIEL on CPAP Upper GI bleed Hepatomegaly History of alcohol abuse Stroke Depression Anxiety Hyperlipidemia LDL goal <70 Obesity with body mass index of 30.0-39.9 Type 2 diabetes mellitus with diabetic polyneuropathy Surgical History History of temporal artery biopsy Hx of esophagogastroduodenoscopy Hx of colonoscopy Family History Father Diabetes Mother Hypertension Daughter Breast cancer Ovarian cancer Social History Household Members: Family Household Members Other:: adult child and grandchild Are you a primary hearing healthcare practitioner to a significant other at home: No Do you presently have visiting nurse or other home services: No Alcohol intake: former Patient Tobacco Use Status: Former Tobacco user Years Smoked: quit 10 years ago Current occupational status: disabled Current occupation: rt handed Review of Systems Const All systems reviewed & are unremarkable except as noted in HPI and below Physical Exam Vital Signs: Last Vital Signs Pulse 71 06/22/24 10:24 Resp 14 06/22/24 10:24 BP 118/58 L 06/22/24 10:24 Pulse Ox 97 06/22/24 10:24 Oxygen Delivery Method Room Air 06/22/24 10:24 BMI result Body Mass Index 33.8 General: Appears afebrile. Alert and oriented. Mood and affect appropriate. Follows and participates in conversation appropriately. Respiratory effort is unlabored. Able to transition from sit to stand unassisted. Ambulates with bilaterally normal heel strike and toe off. Office Procedures Joint Injection/Aspiration Joint Injection/Aspiration Details: Left knee intra-articular injection Primary Site: left knee Prep: site was prepped using sterile technique Injected: 40 mg of and Kenalog Approach Used: anteromedial (Left ) Procedure: The patient tolerated the procedure well Coding 70113 - Large joint Procedure code (CPT) selection complete Results Reviewed Results Reviewed: No imaging is available for review. Assessment & Plan Assessment & Plan (1) Bilateral knee pain: Code(s): M25.561 - Pain in right knee; M25.562 - Pain in left knee Category: Medical Plan Patient is status post left knee intraarticular injection with Kenalog, US guided. Patient tolerated procedure well and was discharged home in stable condition with discharge instructions.? All questions were answered. We will follow-up in two weeks via telephone or in clinic to assess response to therapy. A follow-up appointment was made during today's visit. Scribed for Dr. Oneill by Johnnie Flores, medical office technology instructor, on 06/22/2024. I, Dr. Oneill, have personally reviewed and agree with the information entered by the scribe. Coding Level of Care Code Est Pt Level 3 (89435) Diagnoses Bilateral knee pain M25.561; M25.562 CPT Codes Coding - 41681 Large joint: 51112 - Large joint ([id number])
[2024-06-22 10:24] VITALS: BP 118/58; PULSE 71; RESP 14; O2SAT 97; BMI 33.8
== END 2024-06-22 10:34 | disposition home or self-care (01) ==
LOC: HO.PMC 10:21
PROVIDERS: PCP Internal Medicine; Visit Provider Internal Medicine
DX: M25.562 Pain in left knee (principal)
CPT/HCPCS: 20610; 99213

== ENCOUNTER 2024-07-02 09:33 | Outpatient (REF) | payer OTHER, SELFPAY ==
--- NOTE | ~2024-07-02 | CT_ITS ---
EXAMINATION: CT ANGIOGRAM HEAD CT ANGIOGRAM NECK CLINICAL INFORMATION: Cerebral infarction. COMPARISON: CT head from 03/18/2024. TECHNIQUE: Initial noncontrast cylinder machine operator pulp drier imaging of the head and neck was performed. Noncontrast head CT was also performed. Test bolus sequences followed by intravenous administration 70 mL of Omnipaque 350. Helical imaging was performed in the axial plane from the aortic arch to the skull vertex. Delayed postcontrast imaging of the head was also performed. The data was processed at the staff cytotechnologist's workstation for generation of MIP sequences. Angled MIPs and volume rendered reformatted images were also generated at an offline 3D workstation. Stenoses are assessed in accordance with NASCET criteria unless otherwise indicated. This CT examination was performed using dose optimization techniques as appropriate, variously including the following: *Automated exposure control. *Adjustment of mA and/or kV according to patient size (this includes techniques or standardized protocols for targeted exams where dose is matched to indication/reason for exam; i.e. extremities or head). *Use of iterative reconstruction technique. DLP: 2153 mGy-cm FINDINGS: CT Head: There is chronic encephalomalacia within the right parietal lobe with associated volume loss. No additional loss of babb-white matter differentiation. No evidence of acute intracranial hemorrhage. A few foci of hypoattenuation in the periventricular and deep white matter are consistent with mild microangiopathy. Proportional prominence of the ventricles and sulcal spaces without evidence of obstructive hydrocephalus. No abnormal mass effect or midline shift. No extra-axial fluid collections. No pathologic intra-axial enhancement. No acute soft tissue or osseous abnormalities. Mild mucosal thickening of the paranasal sinuses. The mastoid air cells and middle ear cavities are clear. The patient is edentulous. Bilateral lens extractions. CT Neck: The thyroid gland and remaining cervical soft tissues are within normal limits. Straightening of the normal cervical lordosis. Mild degenerative anterolisthesis of C4 on C5. Moderate degenerative disc disease from C3-T1. Disc-osteophyte complex formation from C3-C6 including a central disc extrusion with superior migration at C3-C4. Facet and uncovertebral joint arthropathy leads to osseous encroachment on the neural foramina from C3-C6. CT Upper Chest: The visualized lung apices and upper mediastinum are within normal limits. Neck CTA: Aortic Arch: Normal contour and caliber with moderate calcific atherosclerotic disease. Two vessel branching pattern of the arch with left common carotid artery arising from the brachiocephalic trunk. Great Vessel Origins: No significant stenosis of the branch origins. Right Common Carotid Artery: No focal stenosis or occlusion. Cervical Right Internal Carotid Artery: Heavy calcific atherosclerotic disease of the carotid bulb and proximal internal carotid artery causing 80% stenosis. Left Common Carotid Artery: No focal stenosis or occlusion. Cervical Left Internal Carotid Artery: Heavy calcific atherosclerotic disease of the carotid bulb and proximal internal carotid artery causing 70% stenosis. Cervical Right Vertebral Artery: Dominant. Atherosclerotic disease causes moderate stenosis of the origin. No additional focal stenosis or occlusion. Cervical Left Vertebral Artery: Atherosclerotic disease causes moderate stenosis of the origin. No additional focal stenosis or occlusion. Brain CTA: Intracranial Internal Carotid Arteries: Calcific atherosclerotic disease of the intracranial internal carotid arteries without occlusion or flow-limiting stenosis. Right Anterior Cerebral Artery: Normal A1 segment. Normal opacification of the distal YULI segments. Left Anterior Cerebral Artery: Normal A1 segment. Normal opacification of the distal YULI segments. Anterior Communicating Artery: Normal. Right Middle Cerebral Artery: Normal M1 segment of the MCA without focal stenosis or occlusion. Normal arborization of the distal segments. Left Middle Cerebral Artery: Normal M1 segment of the MCA without focal stenosis or occlusion. Normal arborization of the distal segments. Right Vertebral Artery: Normal V4 segment. Normal opacification of the proximal segments of the posterior inferior cerebellar artery. Left Vertebral Artery: Normal V4 segment. The posterior inferior cerebellar artery is not well opacified; however, there is no CT evidence of acute occlusion. Basilar Artery: Normal without focal stenosis or occlusion. Normal appearance of the proximal superior cerebellar arteries. Right Posterior Cerebral Artery: The P1 segment is diminutive. origin of the PRETZEL COOKER with robust opacification of the posterior communicating artery. Normal opacification of the distal PRETZEL COOKER segments. Left Posterior Cerebral Artery: Normal P1 segment. Normal opacification of the distal PRETZEL COOKER segments. Normal opacification of the superior sagittal, straight, transverse, and sigmoid sinuses. CT/CT angio head neck IMPRESSION: 1. No evidence of acute intracranial hemorrhage or edematous territorial infarction. Chronic encephalomalacia of the right parietal lobe. Mild underlying microangiopathy and generalized cerebral volume loss. 2. CTA of the head and neck without proximal occlusion. 3. Atherosclerotic disease causes 80% stenosis of the origin of the right ICA and 70% stenosis of the origin of the left ICA. Moderate atherosclerotic stenoses of the origins of the vertebral arteries bilaterally. 4. Moderate multilevel degenerative spondyloarthropathy of the cervical spine. Electronically signed by: Damien Nguyen DO 07/02/2024 03:31 PM EDT RP
[2024-07-02] MEDS: iohexoL 350 MG/ML 75 ML INFUS..BTL 70 ML IV (10:29)
[2024-07-02 14:39] LABS: Creatinine POC 0.8 mg/dL (0.5-1.4); GFR POC > 60
== END 2024-07-02 09:34 | disposition home or self-care (01) ==
LOC: HO.CT 09:33
PROVIDERS: PCP Internal Medicine; Visit Provider Psychiatry & Neurology Neurology
DX: I63.9 Cerebral infarction, unspecified (principal)
CPT/HCPCS: 70496; 70498; 82565; Q9967

== ENCOUNTER 2024-07-10 11:00 | Outpatient (RCR) | payer OTHER, SELFPAY ==
[2024-06-23 13:09] VITALS: BP 149/65; PULSE 83
--- NOTE | 2024-06-23 14:10 | MHC.PT.EP ---
[facility] [place] Office [place] Office [place] Office [address] Juventino Rivera [address] [phone] F: [phone] F: [phone] F: [phone] F: [phone] Physical Therapy Plan of Care Date of Evaluation: 06/23/24 Date of Surgery: NA Diagnosis: Cervical radiculitis Assessment: Delaney is a 63 year old female who is referred to PT for cervical radiculitis . She reports of having neck pain for about 2-3 years however it has gotten worse with time. She denies any trauma or falls. On PT examination she presented with 8/10 pain in neck which is worse with rotation and flexion, significant TTP noted over B UT and B levator scap, decreased cervical and shoulder ROM, decreased cervical, shoulder and scap strength, altered posture, and gait. 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 Her daughter helps her BADLS as needed due to arthritis in multiple joints of her body. She would benefit from skilled PT to address the aforementioned impairments and improve tolerance to functional activities. Frequency and Duration: The patient will be seen 2/week for 5 weeks Short Term Goals: 1. Pt will demonstrate initiation of HEP in 2 weeks. 2. Pt will be able to move her neck through all planes of motion with a pain no more than 3/10 which will enable her to look down for dressing lower body in 3 weeks Plant Engineering Manager Goals: 1. Pt will be able to move B shoulder through all planes of motion with a pain of no more than 2/10 which will enabler her to use shoulder more for upper body dressing in 4 weeks. 2. Pt will demonstrate an increase muscle strength by 1 grade which will enable her to use B UE for self care activities in 5 weeks. 3. Pt will be independent with all HEP for symptom management and maintenance following d/c in 5 weeks. Treatment Plan: Modalities to reduce pain, spasms and effusion. Manual therapy to restore motion and function. Therapeutic exercise to improve strength and flexibility. Neuromuscular re-education for posture and balance. Therapeutic activities to return to functional activities of daily living. Electronically signed by: Samantha Jimenez PT DPT Please sign and return to therapist. Thank you for your referral.
--- NOTE | 2024-07-22 13:24 | MHC.PT.DC ---
[facility] [place] Office [place] Office [place] Office [address] Juventino Rivera [address] [phone] F: [phone] F: [phone] F: [phone] F: [phone] Physical Therapy Discharge Report Diagnosis: Cervical radiculitis Date of Surgery: NA Date of Evaluation: 06/23/24 Date of Discharge: 07/22/24 Treatments to Date: 5 Cancellations to Date: 3 No Shows to Date: 0 Discharge Status: Patient Elected to Stop Recommend MD Follow-up Discharge Summary: Delaney completed 5 PT visits and canceled 3. She has had no improvements with PT. She is therefore being d/c from PT and was advised to follow up with her referring physician. Electronically signed by: Samantha Jimenez PT DPT Please sign and return to therapist. Thank you for your referral.
== END 2024-07-22 13:25 | disposition home or self-care (01) ==
LOC: HO.PT 11:00
PROVIDERS: PCP Internal Medicine; Visit Provider Internal Medicine
DX: M54.12 Radiculopathy, cervical region (principal)
CPT/HCPCS: 97110; 97140; 97161

== ENCOUNTER 2024-07-15 11:38 | Emergency (ER) | payer OTHER, SELFPAY ==
--- NOTE | ~2024-07-15 | CT_ITS ---
EXAMINATION: CT ANGIOGRAM AORTOGRAPHY OF THE CHEST, ABDOMEN, AND PELVIS CLINICAL INFORMATION: cp going to the back COMPARISON: Ultrasound abdomen dated 05/11/[address] abdomen/pelvis dated 05/22/2015 TECHNIQUE: Multiple axial images were obtained through the chest, abdomen, and pelvis after the administration of 100 mL of intravenous Omnipaque 350. Images were evaluated on independent dedicated 3-D workstation and 3-D images were reconstructed with concurrent radiologist supervision and subsequently interpreted. This CT examination was performed using dose optimization techniques as appropriate, variously including the following: *Automated exposure control *Adjustment of mA and/or kV according to patient size (this includes techniques or standardized protocols for targeted exams where dose is matched to indication/reason for exam; i.e. extremities or head) *Use of iterative reconstruction technique DLP: 659 mGy-cm FINDINGS: VASCULAR FINDINGS: Heart: Normal in size. Moderate coronary artery calcifications, particularly in the left anterior descending artery. Aorta: Extensive atherosclerosis of the aorta and its branches. The thoracoabdominal aorta is normal in caliber. There is no dissection or aneurysm. No hyperdensity within the aortic wall to suggest an intramural hematoma. No penetrating atheromatous ulcer. There is a two-vessel aortic arch with common origin of the brachiocephalic and left common carotid arteries, a normal anatomic variant. The origins of the arch vessels are widely patent and the vessels are normal in caliber. Mesenteric Arteries: Severe stenosis at the origin of the celiac artery, superior mesenteric artery, and inferior mesenteric artery. Renal Arteries: Single renal arteries bilaterally. Severe stenosis at the origin of the right renal artery and mild stenosis at the origin of the left renal artery. NONVASCULAR FINDINGS: THORAX: Thyroid Gland: The visualized thyroid gland is normal. Lungs: No airspace consolidation. No suspicious nodules or masses. Airways: The trachea and central bronchi are normal. Pleura: No pleural effusion. No pneumothorax. Lymph Nodes: No supraclavicular, axillary, mediastinal or hilar lymphadenopathy is identified. Chest Wall: No chest wall mass. ABDOMEN/PELVIS: Liver: Diffusely low in attenuation in keeping with hepatic steatosis. Hepatomegaly measures 21.6 cm in cranial caudal dimension. No focal lesion. Gallbladder: No gallbladder wall thickening, pericholecystic fluid, or pericholecystic stranding. Biliary System: No intrahepatic or extrahepatic biliary ductal dilation. Pancreas: Homogeneous in attenuation. No pancreatic ductal dilatation. No focal lesion. Spleen: Normal in size. Adrenal Glands: No focal nodule. Kidneys/Bladder: Bilateral kidneys demonstrate symmetric enhancement. No perinephric fluid collection, urolithiasis or hydroureteronephrosis bilaterally. GI: Right-sided Colonic diverticulosis without secondary signs of acute diverticulitis. The visualized alimentary tract is normal in course. No bowel wall thickening. No dilated loops of bowel to suggest obstruction. Appendix: The appendix is seen in its entirety and is unremarkable. Peritoneum: No pneumoperitoneum. No ascites. No intra-abdominal fluid collection. Pelvic Structures: The bladder is fluid filled without focal wall thickening. The uterus is unremarkable. No adnexal mass. Lymph Nodes: No pathologically enlarged abdominal or pelvic lymph nodes. Soft Tissues/Musculoskeletal: Multilevel degenerative changes of the spine. CT/CT angio abdomen pelvis IMPRESSION: VASCULAR FINDINGS: No dissection or aneurysm of the thoracoabdominal aorta. NONVASCULAR FINDINGS: 1. Hepatic steatosis and hepatomegaly. 2. Right-sided colonic diverticulosis without evidence of acute diverticulitis. Fleischner guidelines were followed. Electronically signed by: Debra Huitron MD 07/15/2024 05:34 PM EDT Workstation: [id number]
--- NOTE | 2024-07-15 11:40 | ECG_ITS ---
Test Reason : CHEST PAIN Blood Pressure : / mmHG Vent. Rate : 084 BPM Atrial Rate : 084 BPM P-R Int : 180 ms QRS Dur : 092 ms QT Int : 346 ms P-R-T Axes : 061 040 044 degrees QTc Int : 408 ms Normal sinus rhythm Normal ECG When compared with ECG of 18-MAR-2024 12:37, No significant change was found Referred By: Dion Munguia Electronically Signed By:CRYSTAL VARMA
[2024-07-15 12:18] LABS: MANUAL DIFF FLAG NO
[2024-07-15 12:26] LABS: INTERNATIONAL NORM RATIO 0.9 (0.9-1.1); Prothrombin Time 11.2 SEC (11.1-13.3)
[2024-07-15 12:27] LABS: Basophils Percent Auto 0.4 % (0-2); Eosinophils Absolute Auto 0.2 X10*3/uL (0.0-0.4); Eosinophils Percent Auto 1.9 % (0-4); Hematocrit 35.6 % (37.0-47.0); Imm Gran Abs Auto 0.03 X10*3/uL (0.00-0.03); Imm Gran Pct Auto 0.4 % (0.0-0.4); Lymphocytes Absolute Auto 1.9 X10*3/uL (1.2-4.9); Lymphocytes Percent Auto 23.7 % (20-40); Mean Corpuscular HGB Conc 33.7 g/dl (31.0-35.0); Mean Corpuscular Hemoglobin 32.5 pg (27.0-33.0); Mean Corpuscular Volume 96.5 fL (80.0-98.0); Mean Platelet Volume 12.9 fL (9.4-12.3); Monocytes Absolute Auto 0.7 X10*3/uL (0.1-1.2); Monocytes Percent Auto 8.3 % (2-11); Neutrophils Absolute Auto 5.2 x10*3/uL (2.0-8.3); Neutrophils Percent Auto 65.3 % (45-73); Platelet Count 146 X10*3/uL (160-400); Red Blood Count 3.69 X10*6/uL (4.20-5.50); Red Cell Distribution Width 13.6 % (11.0-16.0); White Blood Count 7.9 X10*3/uL (4.8-10.8)
[2024-07-15 12:34] LABS: Alanine Aminotransferase 7 U/L (0-31); Albumin Level 4.5 g/dL (3.5-5.0); Alkaline Phosphatase 85 U/L (39-117); Anion Gap 16 (12-20); Aspartate Amino Transferase 13 U/L (5-31); Bilirubin Total 0.4 mg/dL (0.0-1.0); Blood Urea Nitrogen 21 mg/dL (9-16); Calcium 10.2 mg/dL (8.4-10.2); Carbon Dioxide 26 mmol/L (22-29); Chloride 101 mmol/L (96-108); Estimated Glomerular Filt Rate > 60; Glucose Random 190 mg/dL (60-115); Magnesium 1.5 mg/dL (1.6-2.6); Potassium 4.7 mmol/L (3.3-5.1); Sodium 138 mmol/L (135-145); Total Protein 7.6 g/dL (6.5-8.0)
[2024-07-15 12:38] LABS: COVID-19 Test Negative (Negative); IDNOW Serial# 152EDE1D
--- NOTE | 2024-07-15 12:41 | ED_ITS ---
HPI - General Adult General Chief complaint: Chest Pain Stated complaint: CP Time Seen by Provider: 07/15/24 13:37 Related Data Home Medications ?Medication ?Instructions ?Recorded ?Confirmed atenolol 50 mg tablet 50 mg PO DAILY 10/12/20 06/22/24 alcohol swabs pad topical 11/01/20 06/22/24 ferrous sulfate 325 mg (65 mg 325 mg PO DAILY 11/01/20 06/22/24 iron) tablet pen needle, diabetic 32 gauge x #50 ea 11/01/20 06/22/24 aspirin 81 mg tablet,delayed 81 mg PO DAILY 12/27/20 06/22/24 release cholecalciferol (vitamin D3) 50 50 mcg PO DAILY 02/07/21 06/22/24 mcg (2,000 unit) tablet acetaminophen 500 mg tablet 500 mg PO Q6H PRN Pain 11/21/21 06/22/24 (Tylenol Extra Strength) amlodipine 2.5 mg tablet 2.5 mg PO DAILY 03/20/22 06/22/24 atorvastatin 40 mg tablet 40 mg PO DAILY@1700 04/01/24 06/22/24 insulin glargine 100 unit/mL (3 50 unit subcut BEDTIME 04/01/24 06/22/24 mL) subcutaneous pen (Lantus Solostar U-100 Insulin) sumatriptan succinate 50 mg tablet mg PO 06/12/24 06/22/24 Previous Rx's ?Medication ?Instructions ?Recorded lisinopril 40 mg tablet 40 mg PO DAILY #30 tabs 03/24/21 flash glucose scanning reader #1 ea 03/21/23 (FreeStyle Marty 2 [place]) glucagon 0.5 mg/0.1 mL 1 mg (0.2 mL) subcut ONCE #0.2 mL 01/08/24 subcutaneous auto-injector (Gvoke HypoPen 2-Pack) insulin lispro 100 unit/mL See Rx Instructions subcut TID 30 02/07/24 subcutaneous pen (Admelog SoloStar days #30 mL U-100 Insulin lispro) flash glucose sensor (FreeStyle #2 kits 03/10/24 Marty 2 Sensor kit) blood sugar diagnostic (FreeStyle #150 strips 03/12/24 Lite Strips) peiekuqxjc-gsnjlxrzqlfjs-fvuiymag 1 cap PO Q8H PRN pain (scale score 03/18/24 50 mg-300 mg-40 mg capsule 7-10) #10 caps (Fioricet) canagliflozin 300 mg tablet 300 mg PO DAILY #30 tabs 03/19/24 (Invokana) gabapentin 300 mg capsule 300 mg PO BID #60 caps 05/11/24 metformin 500 mg tablet 500 mg PO BID 90 days #180 tabs 06/12/24 semaglutide 1 mg/dose (4 mg/3 mL) 1 mg (0.75 mL) subcut QWEEK #3 mL 06/12/24 subcutaneous pen injector (Ozempic) omeprazole 40 mg capsule,delayed 40 mg PO DAILY #90 caps 07/07/24 release Allergies Allergy/AdvReac Type Severity Reaction Status Date / Time GEL ELECTRODES Allergy Mild RASH Uncoded 07/15/24 12:43 [facility] Past Medical History Medical History Arthritis Anemia GI bleed Temporal headache Urinary incontinence Chronic constipation Fibromyalgia Primary osteoarthritis of knees, bilateral NAFLD (nonalcoholic fatty liver disease) Tubular adenoma of colon Essential hypertension Neuropathy Osteoarthritis DARIEL on CPAP Upper GI bleed Hepatomegaly History of alcohol abuse Stroke Depression Anxiety Hyperlipidemia LDL goal <70 Obesity with body mass index of 30.0-39.9 Type 2 diabetes mellitus with diabetic polyneuropathy Surgical History History of temporal artery biopsy Hx of esophagogastroduodenoscopy Hx of colonoscopy Family History Family History Father Diabetes Mother Hypertension Daughter Breast cancer Ovarian cancer Social History Social History Household Members: Family Household Members Other:: adult child and grandchild Are you a primary primary care nurse to a significant other at home: No Do you presently have visiting nurse or other home services: No Alcohol intake: former Patient Tobacco Use Status: Former Tobacco user Years Smoked: quit 10 years ago Smoked in Last 30 Days: No Use of substances other than those prescribed or required for medical reasons: No Advance Directives: No Advance Directives Information Provided: Yes Do you have a plan to hurt others: No Plan Patient : No Current occupational status: disabled Current occupation: rt handed Physical Exam ED Vital Signs: Vital Signs - 24 hr 07/15/24 12:42 07/15/24 14:00 Temperature 97.8 F 98.6 F Pulse Rate 79 66 Respiratory Rate 18 18 Blood Pressure 154/48 H 135/40 L Pulse Oximetry 99 96 Oxygen Delivery Method Room Air Room Air BMI result Body Mass Index 32.9 Course Course Course Narrative: This is an RME done by JESSICA Munguia: Additional HPI, ROS, PE not included below will be deferred to primary provider. 68yo F with PMHx diabetes, gastroparesis, fibromyalgia, HTN, HLD, NAFLD presenting with 8/10 left sided chest pain that started this morning at physical therapy. Denies fevers, chills, cough, SOB. Appearance: Alert.? Oriented X3.? No acute cardiopulmonary distress distress.? Head: Normocephalic, atraumatic CVS: Pulses normal.? Respiratory: No respiratory distress.? Skin: ? Normal skin color. Neuro: Oriented X 3.? Medications Administered Discontinued Medications Generic Name Dose Route Start Last Admin Trade Name Freq PRN Reason Stop Dose Admin Iohexol 100 ml 07/15/24 15:12 07/15/24 15:12 Iohexol 350 Mg/Ml 100 Ml Infus..Btl IV 07/15/24 15:13 100 ml ONCE ONE Administration Medical Decision Making Lab Data 07/15/24 12:01 07/15/24 12:01 Labs: Lab Results 07/15/24 07/15/24 Range/Units 12:01 14:23 WBC 7.9 (4.8-10.8) X10*3/uL RBC 3.69 L (4.20-5.50) X10*6/uL Hgb 12.0 (12.0-16.0) g/dl Hct 35.6 L (37.0-47.0) % MCV 96.5 (80.0-98.0) fL MCH 32.5 (27.0-33.0) pg MCHC 33.7 (31.0-35.0) g/dl RDW 13.6 (11.0-16.0) % Plt Count 146 L (160-400) X10*3/uL MPV 12.9 H (9.4-12.3) fL Immature Gran % (Auto) 0.4 (0.0-0.4) % Neut % (Auto) 65.3 (45-73) % Lymph % (Auto) 23.7 (20-40) % [place] % (Auto) 8.3 (2-11) % Eos % (Auto) 1.9 (0-4) % Baso % (Auto) 0.4 (0-2) % Lymph # (Auto) 1.9 (1.2-4.9) X10*3/uL [place] # (Auto) 0.7 (0.1-1.2) X10*3/uL Eos # (Auto) 0.2 (0.0-0.4) X10*3/uL Baso # (Auto) 0.0 (0.0-0.2) X10*3/uL Abs Immat Gran (auto) 0.03 (0.00-0.03) X10*3/uL Absolute Neuts (auto) 5.2 (2.0-8.3) x10*3/uL Absolute Nucleated RBC 0.000 (0.0-0.012) X10*3/uL Nucleated RBC % (auto) 0.0 (0.0-0.2) /100WBC PT 11.2 (11.1-13.3) SEC INR 0.9 (0.9-1.1) Sodium 138 (135-145) mmol/L Potassium 4.7 (3.3-5.1) mmol/L Chloride 101 (96-108) mmol/L Carbon Dioxide 26 (22-29) mmol/L Anion Gap 16 (12-20) BUN 21 H (9-16) mg/dL Creatinine 0.92 (0.5-1.4) mg/dL Estim Creat Clear Calc TNP Estimated GFR > 60 Random Glucose 190 H (60-115) mg/dL Calcium 10.2 (8.4-10.2) mg/dL Magnesium 1.5 L (1.6-2.6) mg/dL Total Bilirubin 0.4 (0.0-1.0) mg/dL AST 13 (5-31) U/L ALT 7 (0-31) U/L Alkaline Phosphatase 85 (39-117) U/L Troponin I High Sens < 2.7 < 2.7 (<3.5-17.0) ng/L Total Protein 7.6 (6.5-8.0) g/dL Albumin 4.5 (3.5-5.0) g/dL Lipase 32 (8-78) U/L COVID-19 ([facility]A) Negative (Negative) COVID-19 Clin Com See Note Discharge Plan Discharge Clinical Impression: Chest pain, Acute epigastric pain Patient Disposition: Still a Patient Prescriptions: No Action lisinopril 40 mg tablet 40 mg PO DAILY Qty: 30 1RF Gvoke HypoPen 2-Pack 0.5 mg/0.1 mL auto-injector 1 mg subcut ONCE Qty: 0.2 4RF insulin lispro [Admelog SoloStar U-100 Insulin] 100 unit/mL insulin pen See Rx Instructions subcut TID 30 Days Qty: 30 6RF Rx Instructions: 15 u for small meals, 15 u for large, + 2 units for bg>200, + 3 units for BG >250, + 4 units bg >300mg/dl. Of note..for very light meal use only 6 units. subcut 3 times a day; (DME) FreeStyle Marty 2 Sensor Kit See Rx Instructions .ROUTE .COMPLEX Qty: 2 6RF Dose Instruction: DIRECTED CHANGE EVERY 14 DAYS Rx Instructions: DIRECTED CHANGE EVERY 14 DAYS (DME) FreeStyle Lite Strips Strip See Rx Instructions .ROUTE .COMPLEX Qty: 150 11RF Dose Instruction: DIRECTED 4 TIMES A DAY Rx Instructions: DIRECTED 4 TIMES A DAY Invokana 300 mg tablet 300 mg PO DAILY Qty: 30 5RF omeprazole 40 mg capsule,delayed release(DR/EC) 40 mg PO DAILY Qty: 90 0RF cwaauvaviq-gldafibhvzlrk-rbwo [Fioricet] 50-300-40 mg capsule 1 cap PO Q8H PRN (Reason: pain (scale score 7-10)) Qty: 10 0RF atorvastatin 40 mg tablet 40 mg PO DAILY@1700 insulin glargine [Lantus Solostar U-100 Insulin] 100 unit/mL (3 mL) insulin pen 50 unit subcut BEDTIME alcohol swabs Pads, Medicated topical ferrous sulfate 325 mg (65 mg iron) tablet 325 mg PO DAILY (DME) pen needle, diabetic 32 gauge x 5/32 needle See Rx Instructions subcut QID Qty: 50 Rx Instructions: As directed aspirin 81 mg tablet,delayed release (DR/EC) 81 mg PO DAILY acetaminophen [Tylenol Extra Strength] 500 mg tablet 500 mg PO Q6H PRN (Reason: Pain) cholecalciferol (vitamin D3) 50 mcg (2,000 unit) tablet 50 mcg PO DAILY atenolol 50 mg tablet 50 mg PO DAILY amlodipine 2.5 mg tablet 2.5 mg PO DAILY (DME) FreeStyle Marty 2 [place] Misc See Rx Instructions .Route Qty: 1 0RF Rx Instructions: As directed gabapentin 300 mg capsule 300 mg PO BID Qty: 60 0RF sumatriptan succinate 50 mg tablet PO metformin 500 mg tablet 500 mg PO BID 90 Days Qty: 180 2RF Ozempic 1 mg/dose (4 mg/3 mL) pen injector 1 mg subcut QWEEK Qty: 3 3RF Print Language: Kinyarwanda
[2024-07-15 12:42] VITALS: BP 154/48; PULSE 79; RESP 18; TEMP 36.6; O2SAT 99; BMI 32.9
[2024-07-15 12:51] LABS: Troponin-I High Sensitivity < 2.7 ng/L (<3.5-17.0)
[2024-07-15 14:00] VITALS: BP 135/40; PULSE 66; RESP 18; TEMP 37; O2SAT 96
--- NOTE | 2024-07-15 14:08 | ED.CHESTPAIN ---
HPI - Chest Pain General Chief Complaint: Chest Pain Stated Complaint: CP Time Seen by Provider: 07/15/24 13:37 History of Present Illness HPI narrative: Patient is a 63-year-old female presents today with having chest pain that is in the mid chest area. Going to the back. Wraps around to the left side. Has no rash. Has been on and off. There is no specific trigger. Patient is from home. Positive history diabetes and hypertension. No history of RI positive history of strokes in the past. No history of hyper cholesterol anemia no history of RI. No family history of RI. positive history of fibromyalgia. No coughing or congestion or upper respiratory symptoms. No diaphoresis patient is also larger in size with a BMI of 30-39. Patient denies any change in bowel movement. Denies any fever chills. Not related to food. Not associated with any walking. Went to physical therapy at around 11:00 o'clock. Had the pain prior to going. Related Data Home Medications ?Medication ?Instructions ?Recorded ?Confirmed atenolol 50 mg tablet 50 mg PO DAILY 10/12/20 06/22/24 alcohol swabs pad topical 11/01/20 06/22/24 ferrous sulfate 325 mg (65 mg 325 mg PO DAILY 11/01/20 06/22/24 iron) tablet pen needle, diabetic 32 gauge x #50 ea 11/01/20 06/22/24 aspirin 81 mg tablet,delayed 81 mg PO DAILY 12/27/20 06/22/24 release cholecalciferol (vitamin D3) 50 50 mcg PO DAILY 02/07/21 06/22/24 mcg (2,000 unit) tablet acetaminophen 500 mg tablet 500 mg PO Q6H PRN Pain 11/21/21 06/22/24 (Tylenol Extra Strength) amlodipine 2.5 mg tablet 2.5 mg PO DAILY 03/20/22 06/22/24 atorvastatin 40 mg tablet 40 mg PO DAILY@1700 04/01/24 06/22/24 insulin glargine 100 unit/mL (3 50 unit subcut BEDTIME 04/01/24 06/22/24 mL) subcutaneous pen (Lantus Solostar U-100 Insulin) sumatriptan succinate 50 mg tablet mg PO 06/12/24 06/22/24 Previous Rx's ?Medication ?Instructions ?Recorded lisinopril 40 mg tablet 40 mg PO DAILY #30 tabs 03/24/21 flash glucose scanning reader #1 ea 03/21/23 (FreeStyle Marty 2 [place]) glucagon 0.5 mg/0.1 mL 1 mg (0.2 mL) subcut ONCE #0.2 mL 01/08/24 subcutaneous auto-injector (Gvoke HypoPen 2-Pack) insulin lispro 100 unit/mL See Rx Instructions subcut TID 30 02/07/24 subcutaneous pen (Admelog SoloStar days #30 mL U-100 Insulin lispro) flash glucose sensor (FreeStyle #2 kits 03/10/24 Marty 2 Sensor kit) blood sugar diagnostic (FreeStyle #150 strips 03/12/24 Lite Strips) ythnrcpyqk-bnlhwoxzegidd-qrybwkpj 1 cap PO Q8H PRN pain (scale score 03/18/24 50 mg-300 mg-40 mg capsule 7-10) #10 caps (Fioricet) canagliflozin 300 mg tablet 300 mg PO DAILY #30 tabs 03/19/24 (Invokana) gabapentin 300 mg capsule 300 mg PO BID #60 caps 05/11/24 metformin 500 mg tablet 500 mg PO BID 90 days #180 tabs 06/12/24 semaglutide 1 mg/dose (4 mg/3 mL) 1 mg (0.75 mL) subcut QWEEK #3 mL 06/12/24 subcutaneous pen injector (Ozempic) omeprazole 40 mg capsule,delayed 40 mg PO DAILY #90 caps 07/07/24 release Allergies Allergy/AdvReac Type Severity Reaction Status Date / Time GEL ELECTRODES Allergy Mild RASH Uncoded 07/15/24 12:43 Review of Systems Review of Systems: Positive abdominal pain Yes all other systems are reviewed and are negative [facility] Past Medical History Attestation statement: The following information was validated with the patient. Medical History Arthritis Anemia GI bleed Temporal headache Urinary incontinence Chronic constipation Fibromyalgia Primary osteoarthritis of knees, bilateral NAFLD (nonalcoholic fatty liver disease) Tubular adenoma of colon Essential hypertension Neuropathy Osteoarthritis DARIEL on CPAP Upper GI bleed Hepatomegaly History of alcohol abuse Stroke Depression Anxiety Hyperlipidemia LDL goal <70 Obesity with body mass index of 30.0-39.9 Type 2 diabetes mellitus with diabetic polyneuropathy Surgical History History of temporal artery biopsy Hx of esophagogastroduodenoscopy Hx of colonoscopy Family History Family History Father Diabetes Mother Hypertension Daughter Breast cancer Ovarian cancer Social History Social History Household Members: Family Household Members Other:: adult child and grandchild Are you a primary director of career services to a significant other at home: No Do you presently have visiting nurse or other home services: No Alcohol intake: former Patient Tobacco Use Status: Former Tobacco user Years Smoked: quit 10 years ago Smoked in Last 30 Days: No Use of substances other than those prescribed or required for medical reasons: No Advance Directives: No Advance Directives Information Provided: Yes Do you have a plan to hurt others: No Plan Patient : No Current occupational status: disabled Current occupation: rt handed Physical Exam Vital Signs: Vital Signs: Last Vital Signs Temp 98.6 F 07/15/24 14:00 Pulse 66 07/15/24 14:00 Resp 18 07/15/24 14:00 BP 135/40 L 07/15/24 14:00 Pulse Ox 96 07/15/24 14:00 O2 Del Method Room Air 07/15/24 14:00 BMI result Body Mass Index 32.9 Appearance: Alert. Oriented X3. No acute distress. Eyes: Pupils equal, round and reactive to light. ENT: Pharynx normal. Neck: Normal inspection. Neck supple. No lymph nodes noted. No crepitus CVS: Normal heart rate and rhythm. Pulses normal. Normal S1 and S2 Respiratory: No respiratory distress. Breath sounds normal. No Wheezing. No rales Abdomen: Soft and nontender. No rigidity. No distention. good BS x4 Skin: Skin warm and dry. Normal skin color. Normal skin turgor. Extremities: No lower extremity edema. Neurovascular intact to all extremities. No Lacerations. No Rash Neuro: Oriented X 3. No motor deficit. No sensory deficit. Moving all extermities. No slurred speech Medications Administered Discontinued Medications Generic Name Dose Route Start Last Admin Trade Name Freq PRN Reason Stop Dose Admin Iohexol 100 ml 07/15/24 15:12 07/15/24 15:12 Iohexol 350 Mg/Ml 100 Ml Infus..Btl IV 07/15/24 15:13 100 ml ONCE ONE Administration Medical Decision Making Medical Decision Making [facility] Narrative: My interpretation patient's EKG showed a sinus rhythm heart rate is 80 MT QRS QTC within normal limits is no acute ST segment elevation. Two sets of cardiac enzymes are negative. Patient has pain in the epigastric area is atypical for ACS. She is larger in size. She has a history of diabetes. She also had a previous history of stroke. Her EKG is not an anonymous was ACS. Her heart score is a 3. Patient is history not consistent with PE. Nevertheless has pain going to the back a CTA of the chest abdomen pelvis was done. She had no previous CT scan of the chest abdomen pelvis done in the system. No acute distress. Patient's lipase is normal. No evidence for pancreatitis. Patient's kidney function is normal. White count is normal. Differential Diagnosis Differential Diagnoses: The differential diagnosis associated with the presentation includes ACS, pancreatitis, COVID, anemia, dissection, PE, pneumonia, pneumothorax Admission/Observation Consideration of admission/observation: Escalation of care including admission/observation considered Lab Data [facility] Lab Attestation statement: I reviewed the patient's lab results. 07/15/24 12:01 07/15/24 12:01 Labs: Lab Results 07/15/24 07/15/24 Range/Units 12:01 14:23 WBC 7.9 (4.8-10.8) X10*3/uL RBC 3.69 L (4.20-5.50) X10*6/uL Hgb 12.0 (12.0-16.0) g/dl Hct 35.6 L (37.0-47.0) % MCV 96.5 (80.0-98.0) fL MCH 32.5 (27.0-33.0) pg MCHC 33.7 (31.0-35.0) g/dl RDW 13.6 (11.0-16.0) % Plt Count 146 L (160-400) X10*3/uL MPV 12.9 H (9.4-12.3) fL Immature Gran % (Auto) 0.4 (0.0-0.4) % Neut % (Auto) 65.3 (45-73) % Lymph % (Auto) 23.7 (20-40) % [place] % (Auto) 8.3 (2-11) % Eos % (Auto) 1.9 (0-4) % Baso % (Auto) 0.4 (0-2) % Lymph # (Auto) 1.9 (1.2-4.9) X10*3/uL [place] # (Auto) 0.7 (0.1-1.2) X10*3/uL Eos # (Auto) 0.2 (0.0-0.4) X10*3/uL Baso # (Auto) 0.0 (0.0-0.2) X10*3/uL Abs Immat Gran (auto) 0.03 (0.00-0.03) X10*3/uL Absolute Neuts (auto) 5.2 (2.0-8.3) x10*3/uL Absolute Nucleated RBC 0.000 (0.0-0.012) X10*3/uL Nucleated RBC % (auto) 0.0 (0.0-0.2) /100WBC PT 11.2 (11.1-13.3) SEC INR 0.9 (0.9-1.1) Sodium 138 (135-145) mmol/L Potassium 4.7 (3.3-5.1) mmol/L Chloride 101 (96-108) mmol/L Carbon Dioxide 26 (22-29) mmol/L Anion Gap 16 (12-20) BUN 21 H (9-16) mg/dL Creatinine 0.92 (0.5-1.4) mg/dL Estim Creat Clear Calc TNP Estimated GFR > 60 Random Glucose 190 H (60-115) mg/dL Calcium 10.2 (8.4-10.2) mg/dL Magnesium 1.5 L (1.6-2.6) mg/dL Total Bilirubin 0.4 (0.0-1.0) mg/dL AST 13 (5-31) U/L ALT 7 (0-31) U/L Alkaline Phosphatase 85 (39-117) U/L Troponin I High Sens < 2.7 < 2.7 (<3.5-17.0) ng/L Total Protein 7.6 (6.5-8.0) g/dL Albumin 4.5 (3.5-5.0) g/dL Lipase 32 (8-78) U/L COVID-19 (ARYA) Negative (Negative) COVID-19 Clin Com See Note Independent Interpretation I performed an independent interpretation of an: EKG (As above) Independent Historian Clinical information obtained from an independent historian. History obtained from or confirmed by: Other (Additional history obtained through patient's family) External Record Review Previous medical record reviewed Chronic Conditions Patient?s care impacted by: Diabetes and Hypertension Discharge Plan Discharge Clinical Impression: Chest pain, Acute epigastric pain Patient Disposition: Still a Patient Prescriptions: No Action lisinopril 40 mg tablet 40 mg PO DAILY Qty: 30 1RF Gvoke HypoPen 2-Pack 0.5 mg/0.1 mL auto-injector 1 mg subcut ONCE Qty: 0.2 4RF insulin lispro [Admelog SoloStar U-100 Insulin] 100 unit/mL insulin pen See Rx Instructions subcut TID 30 Days Qty: 30 6RF Rx Instructions: 15 u for small meals, 15 u for large, + 2 units for bg>200, + 3 units for BG >250, + 4 units bg >300mg/dl. Of note..for very light meal use only 6 units. subcut 3 times a day; (DME) FreeStyle Marty 2 Sensor Kit See Rx Instructions .ROUTE .COMPLEX Qty: 2 6RF Dose Instruction: DIRECTED CHANGE EVERY 14 DAYS Rx Instructions: DIRECTED CHANGE EVERY 14 DAYS (DME) FreeStyle Lite Strips Strip See Rx Instructions .ROUTE .COMPLEX Qty: 150 11RF Dose Instruction: DIRECTED 4 TIMES A DAY Rx Instructions: DIRECTED 4 TIMES A DAY Invokana 300 mg tablet 300 mg PO DAILY Qty: 30 5RF omeprazole 40 mg capsule,delayed release(DR/EC) 40 mg PO DAILY Qty: 90 0RF gmdrpxhxqq-mvwyacyssnprj-oken [Fioricet] 50-300-40 mg capsule 1 cap PO Q8H PRN (Reason: pain (scale score 7-10)) Qty: 10 0RF atorvastatin 40 mg tablet 40 mg PO DAILY@1700 insulin glargine [Lantus Solostar U-100 Insulin] 100 unit/mL (3 mL) insulin pen 50 unit subcut BEDTIME alcohol swabs Pads, Medicated topical ferrous sulfate 325 mg (65 mg iron) tablet 325 mg PO DAILY (DME) pen needle, diabetic 32 gauge x 5/32 needle See Rx Instructions subcut QID Qty: 50 Rx Instructions: As directed aspirin 81 mg tablet,delayed release (DR/EC) 81 mg PO DAILY acetaminophen [Tylenol Extra Strength] 500 mg tablet 500 mg PO Q6H PRN (Reason: Pain) cholecalciferol (vitamin D3) 50 mcg (2,000 unit) tablet 50 mcg PO DAILY atenolol 50 mg tablet 50 mg PO DAILY amlodipine 2.5 mg tablet 2.5 mg PO DAILY (DME) FreeStyle Marty 2 [place] [facility] See Rx Instructions .Route Qty: 1 0RF Rx Instructions: As directed gabapentin 300 mg capsule 300 mg PO BID Qty: 60 0RF sumatriptan succinate 50 mg tablet PO metformin 500 mg tablet 500 mg PO BID 90 Days Qty: 180 2RF Ozempic 1 mg/dose (4 mg/3 mL) pen injector 1 mg subcut QWEEK Qty: 3 3RF Print Language: Nepalese
[2024-07-15 14:28] VITALS: PULSE 69
[2024-07-15 14:42] LABS: Lipase 32 U/L (8-78)
[2024-07-15 14:53] LABS: Troponin-I High Sensitivity < 2.7 ng/L (<3.5-17.0)
[2024-07-15] MEDS: iohexoL 350 MG/ML 100 ML INFUS..BTL IV (15:12)
[2024-07-15 16:00] VITALS: BP 161/64; PULSE 73; RESP 13; TEMP 36.2; O2SAT 98
[2024-07-15] MEDS: Magnesium Hydrox/Alum Hydrox 30 ML ORAL.SUSP PO (16:44)
[2024-07-15 18:00] VITALS: BP 145/48; PULSE 70; RESP 18; TEMP 36.4; O2SAT 99
[2024-07-15] MEDS: Omeprazole 40 MG CAPSULE.DR PO (19:20)
[2024-07-15 19:23] VITALS: BP 145/48; PULSE 70; RESP 18; TEMP 36.4; O2SAT 99
== END 2024-07-15 19:38 | disposition home or self-care (01) ==
PROVIDERS: Physician Assistant; Emergency Provider Emergency Medicine Emergency Medical Services
DX: R07.89 Other chest pain (principal); R10.13 Epigastric pain; G47.33 Obstructive sleep apnea (adult) (pediatric); E11.9 Type 2 diabetes mellitus without complications; Z79.899 Other long term (current) drug therapy; Z87.891 Personal history of nicotine dependence; Z11.52 Encounter for screening for COVID-19; Z79.4 Long term (current) use of insulin
CPT/HCPCS: 36415; 71275; 74174; 80053; 83690; 83735; 84484; 85025; 85610; 87635; 93005; 99284; 99285; Q9967

== ENCOUNTER 2024-08-12 11:27 | Outpatient (AMB) | payer OTHER, SELFPAY ==
[2024-08-12 11:46] VITALS: BP 135/63; PULSE 67; O2SAT 99
--- NOTE | 2024-08-12 11:46 | A.OFFVIS_ITS ---
Vital Signs 08/12/24 11:46 Weight 192 lb BP 135/63 Blood Pressure Location Rt brachial Position Sitting Pulse 67 Pulse Source Pulse Oximeter Pulse Oximetry (%) 99 Oxygen Delivery Method Room Air Intake Visit Reasons: Shoulder pain Allergies GEL ELECTRODES Allergy (Mild, Uncoded 08/12/24 11:47) RASH Medication List - Last Reconciled 08/12/24 by Ivanna Harrell acetaminophen (Tylenol Extra Strength) 500 mg PO Q6H PRN alcohol swabs pad topical amlodipine 2.5 mg PO DAILY aspirin 81 mg PO DAILY atenolol 50 mg PO DAILY atorvastatin 40 mg PO DAILY@1700 blood sugar diagnostic (FreeStyle Lite Strips) DIRECTED 4 TIMES A DAY uoqytqpnaa-qorwdcsvhroux-jish 50-300-40 mg (Fioricet) 1 cap PO Q8H PRN canagliflozin (Invokana) 300 mg PO DAILY cholecalciferol (vitamin D3) 50 mcg PO DAILY ferrous sulfate 325 mg PO DAILY flash glucose scanning reader (ArchsyStyle Marty 2 [place]) As directed flash glucose sensor (FreeStyle Marty 2 Sensor kit) DIRECTED CHANGE EVERY 14 DAYS gabapentin 300 mg PO BID glucagon (Gvoke HypoPen 2-Pack) 1 mg (0.2 mL) subcut ONCE insulin glargine (Lantus Solostar U-100 Insulin) 50 units subcut BEDTIME insulin lispro (Admelog SoloStar U-100 Insulin lispro) 15 u for small meals, 15 u for large, + 2 units for bg>200, + 3 units for BG >250, + 4 units bg >300mg/dl. Of note..for very light meal use only 6 units. subcut 3 times a day; 30 days lisinopril 40 mg PO DAILY metformin 500 mg PO BID 90 days omeprazole 40 mg PO DAILY pantoprazole (Protonix) 40 mg PO DAILY pen needle, diabetic As directed semaglutide (Ozempic) 1 mg (0.75 mL) subcut QWEEK sucralfate 1 g PO TID sumatriptan succinate mg PO HPI HPI Shoulder pain: Details: 64-year-old female who presents today to the office for evaluation of right shoulder pain. She reports she has been having right shoulder pain and neck pain. She reports pain with movement as well. She states she ran out of medications. She previously had received injection for the shoulder with benefit Denies any recent cough, cold, infection, fever or other significant changes in medical history since last office visit. Past procedures: 06/22/24: Left knee intraarticular injection with Kenalog, US-guided: 02/28/24: Right knee injection with Kenalo% relief, ongoing. 12/27/2023: Bilateral subacromial shoulder bursa injections, ultrasound guided: >70% relief. 06/17/2023: Bilateral acromioclavicular joint injection: 75% relief. 06/17/2023: Right diagnostic infrapatellar saphenous nerve block: 100% relief. [facility] Medical History Arthritis Anemia GI bleed Temporal headache Urinary incontinence Chronic constipation Fibromyalgia Primary osteoarthritis of knees, bilateral NAFLD (nonalcoholic fatty liver disease) Tubular adenoma of colon Essential hypertension Neuropathy Osteoarthritis DARIEL on CPAP Upper GI bleed Hepatomegaly History of alcohol abuse Stroke Depression Anxiety Hyperlipidemia LDL goal <70 Obesity with body mass index of 30.0-39.9 Type 2 diabetes mellitus with diabetic polyneuropathy Surgical History History of temporal artery biopsy Hx of esophagogastroduodenoscopy Hx of colonoscopy Family History Father Diabetes Mother Hypertension Daughter Breast cancer Ovarian cancer Social History Household Members: Family Household Members Other:: adult child and grandchild Are you a primary customer care coordinator to a significant other at home: No Do you presently have visiting nurse or other home services: No Alcohol intake: former Patient Tobacco Use Status: Former Tobacco user Years Smoked: quit 10 years ago Current occupational status: disabled Current occupation: rt handed Physical Exam Vital Signs: Last Vital Signs Pulse 67 08/12/24 11:46 BP 135/63 08/12/24 11:46 Pulse Ox 99 08/12/24 11:46 Oxygen Delivery Method Room Air 08/12/24 11:46 General: Appears afebrile. Alert and oriented. Mood and affect appropriate. Follows and participates in conversation appropriately. Respiratory effort is unlabored. Able to transition from sit to stand unassisted. Ambulates with bilaterally normal heel strike and toe off. Office Procedures Joint Injection/Aspiration Joint Injection/Aspiration Details: Right acromioclavicular joint injection, ultrasound guided Primary Site: right shoulder (AC joint) Injected: 40 mg of, Kenalog and in the joint Approach Used: other (Ultrasound-guided) Procedure: The patient tolerated the procedure well Coding - Acromioclavicular with ultrasound guidance Procedure code (CPT) selection complete Assessment & Plan Assessment & Plan (1) Acromioclavicular joint arthritis: Code(s): M19.019 - Primary osteoarthritis, unspecified shoulder Category: Medical Plan Patient is status post right AC joint injection. Patient tolerated procedure well and was discharged home in stable condition with discharge instructions. All questions were answered. We will follow-up in two weeks via telephone or in clinic to assess response to therapy. A follow-up appointment was made during today's visit. Scribed for Dr. Oneill by Shi medical services assistant, on 08/12/2024. I, Dr. Oneill, have personally reviewed and agree with the information entered by the scribe. Coding Level of Care Code Procedure Only Diagnoses Acromioclavicular joint arthritis M19.019 CPT Codes Coding - Joint 6: 51995 - Acromioclavicular with ultrasound guidance ([id number])
== END 2024-08-12 12:00 | disposition home or self-care (01) ==
PROVIDERS: PCP Internal Medicine; Visit Provider Internal Medicine
DX: M19.011 Primary osteoarthritis, right shoulder (principal)
CPT/HCPCS: 20606

== ENCOUNTER → 2024-08-12 11:27 | Outpatient (BNVA) | payer OTHER, SELFPAY | PROVIDERS: PCP Internal Medicine; Visit Provider Internal Medicine | DX: M19.011 Primary osteoarthritis, right shoulder (principal) | CPT/HCPCS: 20606; J3301 ==

== ENCOUNTER 2024-09-11 10:01 | Outpatient (AMB) | payer OTHER, SELFPAY ==
[2024-09-11 10:03] VITALS: BP 146/64; PULSE 76; BMI 30.3
--- NOTE | 2024-09-11 10:03 | A.OFFVIS_ITS ---
Vital Signs 09/11/24 10:03 Height 5 ft 4 in Weight 176 lb 12.972 oz BMI 30.3 BP 146/64 H Blood Pressure Location Rt brachial Position Sitting Pulse 76 Pulse Source Pulse Oximeter Intake Visit Reasons: DM/CONFIRMED Intake Note: Patient presents today for [facility] follow up visit. Last Diabetic Eye exam: 07/2024 Last Podiatry Visit: Doesn't have one Random Glucose: 154 mg/dl HgA1c: 7.9% Vertical Roll Operator Required: No Accompanied by: Self / Same As Patient Allergies GEL ELECTRODES Allergy (Mild, Uncoded 09/11/24 10:10) RASH Medication List - Last Reconciled 09/11/24 by Darcy Mason PA-C acetaminophen (Tylenol Extra Strength) 500 mg PO Q6H PRN alcohol swabs pad topical amlodipine 2.5 mg PO DAILY aspirin 81 mg PO DAILY atenolol 50 mg PO DAILY atorvastatin 40 mg PO DAILY@1700 blood sugar diagnostic (FreeStyle Lite Strips) DIRECTED 4 TIMES A DAY alobkxejky-ejgegiijmerjg-tyyy 50-300-40 mg (Fioricet) 1 cap PO Q8H PRN cholecalciferol (vitamin D3) 50 mcg PO DAILY empagliflozin (Jardiance) 10 mg PO QAM ferrous sulfate 325 mg PO DAILY flash glucose scanning reader (FreeStyle Marty 2 [place]) As directed flash glucose sensor (FreeStyle Marty 2 Sensor kit) DIRECTED CHANGE EVERY 14 DAYS gabapentin 300 mg PO BID glucagon (Gvoke HypoPen 2-Pack) 1 mg (0.2 mL) subcut ONCE insulin glargine (Lantus Solostar U-100 Insulin) 50 units subcut BEDTIME insulin lispro (Admelog SoloStar U-100 Insulin lispro) 15 u for small meals, 15 u for large, + 2 units for bg>200, + 3 units for BG >250, + 4 units bg >300mg/dl. Of note..for very light meal use only 6 units. subcut 3 times a day; 30 days lisinopril 40 mg PO DAILY metformin 500 mg PO BID 90 days pantoprazole (Protonix) 40 mg PO DAILY pen needle, diabetic As directed semaglutide (Ozempic) 2 mg (0.75 mL) subcut QWEEK sucralfate 1 g PO TID sumatriptan succinate mg PO HPI HPI DM/CONFIRMED: Details: Patient is a 63 yo female with DM type 2 diagnosed 2009, who presents for visit for follow up management of diabetes . She last saw Dr. Wray in March. Past medical history: HTN, HLD. fibromyalgia, ostearthritis, DARIEL, neuropathy She states her a1c may not be that great because she was recently been getting cortisone injections. It is 7.9 today. It has increased from previous 7.3. Micro and macrovascular complications: +neuropathy, +CVA, +PVD, microalbuminuria Diabetes medications: Ozempic 1 mg Qwkly, Lantus 50 units, Humalog 6 units for very light meal such as salad and meat. 12 units for small meals and 14 units for large meals, with a correction of plus 2 units for blood sugars over 200, +3 units for blood sugars over 250 and plus 5 units for blood sugars over 300, metformin 500 mg twice a day. -she is off of invokana due to insurance reasons x3-4 months. -she does not like taking higher doses of metformin it causes stomach upset. Blood glucose monitoring: Marty reader review shows glucose is in target range 83% of the time with 17% hyperglycemia and 0% hypoglycemia. Hypoglycemia is occurring primarily after dinner. States that she does not normally want to eat anything excessive at dinnertime. She finds herself smacking at night before going to bed. Symptoms reported: + numbness, tingling, cramping in toes and hands. Hypoglycemia: happens daily after dinner Symptoms of shakiness and sweatiness. 4 oz of juice or 2 tb sugar or glucose tabs. Hyperglycemia: + urinary frequency, + nocturia (2x) , denies polydypsia She is on an PRIYA-inhibitor and statin CV: Bp today is 146/64. States at home bps are wnl but she is struggling pain management. She is on atenolol 50 mg daily, amlodipine 2.5 mg daily and lisinopril 40 mg. Compliant with atorvastatin 40 mg GI:At baseline has constipation and states that recently with taking tramadol and her medications it feels like the constipation is worse. She does have an appointment scheduled with GI but not until November. [facility], [facility] Medical History Arthritis Anemia GI bleed Temporal headache Urinary incontinence Chronic constipation Fibromyalgia Primary osteoarthritis of knees, bilateral NAFLD (nonalcoholic fatty liver disease) Tubular adenoma of colon Essential hypertension Neuropathy Osteoarthritis DARIEL on CPAP Upper GI bleed Hepatomegaly History of alcohol abuse Stroke Depression Anxiety Hyperlipidemia LDL goal <70 Obesity with body mass index of 30.0-39.9 Type 2 diabetes mellitus with diabetic polyneuropathy Surgical History History of temporal artery biopsy Hx of esophagogastroduodenoscopy Hx of colonoscopy Family History Father Diabetes Mother Hypertension Daughter Breast cancer Ovarian cancer Social History Household Members: Family Household Members Other:: adult child and grandchild Are you a primary career development counselor to a significant other at home: No Do you presently have visiting nurse or other home services: No Alcohol intake: former Patient Tobacco Use Status: Former Tobacco user Years Smoked: quit 10 years ago Current occupational status: disabled Current occupation: rt handed Physical Exam Vital Signs: Last Vital Signs Pulse 76 09/11/24 10:03 BP 146/64 H 09/11/24 10:03 BMI result Body Mass Index 30.3 Results AMB Hemoglobin A1c AMB Hemoglobin A1c 7.9 % Last Edit by RADHA Sue on 09/11/24 10:41 Results Reviewed Results Reviewed: Laboratory Last Values Glucose (Clinic) 154 mg/dL (60-115) H 09/11/24 10:13 Hgb A1c (Clinic) 7.9 % (4.0-6.0) H 09/11/24 10:15 Laboratory Tests 06/22/24 07/15/24 09/11/24 09:24 12:01 10:13 Estimated GFR > 60 Glucose (Clinic) 154 H Hemoglobin A1c % 7.3 H AST 13 ALT 7 Triglycerides 192 H Cholesterol 175 LDL Cholesterol, Calc 97 HDL Cholesterol 40 L Assessment & Plan Assessment & Plan (1) Type 2 diabetes mellitus with diabetic polyneuropathy: Code(s): E11.42 - Type 2 diabetes mellitus with diabetic polyneuropathy Category: Medical Qualifiers: Diabetes mellitus custodial insulin use: with custodial use Qualified Code(s): E11.42 - Type 2 diabetes mellitus with diabetic polyneuropathy; Z79.4 - skilled nursing (current) use of insulin Plan: increase ozempic 2 mg. discussed it can worsen constipation. ordered miralax prn. We did discuss eating very slowly and spacing her solids and liquids by 30-60 minutes. start jardiance. discussed risks and benefits and adverse effects. discussed it can cause UTIs, increased urinary frequency, yeast infections. continue insulin regimen continue metformin 500 mg bid (2) Obesity with body mass index of 30.0-39.9: Code(s): E66.9 - Obesity, unspecified Category: Medical Plan: working on diet. increased ozempic (3) Hyperlipidemia LDL goal <70: Code(s): E78.5 - Hyperlipidemia, unspecified Category: Medical Plan: reviewed last lipids. continue atorvastatin 40 mg (4) Essential hypertension: Code(s): I10 - Essential (primary) hypertension Category: Medical Plan: bp elevated today (due to joint pains) but reports at home wnl. states her daughter monitors blood pressures 2-3 x a week. continue lisinopril, amlodipine and atenolol. Orders: Orders B Type Natriuretic Peptide Today E11.42 - Type 2 diabetes mellitus with diabetic polyneuropathy, E66.9 - Obesity, unspecified, E78.5 - Hyperlipidemia, unspecified, I10 - Essential (primary) hypertension, Z79.4 - long term care phlebotomist (current) use of insulin AMB Hemoglobin A1c Today E11.42 - Type 2 diabetes mellitus with diabetic polyneuropathy, Z13.9 - Encounter for screening, unspecified, Z79.4 - skilled nursing (current) use of insulin Microalbumin, Random (w Creat) Today E11.42 - Type 2 diabetes mellitus with diabetic polyneuropathy, E66.9 - Obesity, unspecified, E78.5 - Hyperlipidemia, unspecified, I10 - Essential (primary) hypertension, Z79.4 - skilled nursing (current) use of insulin Basic Metabolic Panel Today E11.42 - Type 2 diabetes mellitus with diabetic polyneuropathy, E66.9 - Obesity, unspecified, E78.5 - Hyperlipidemia, unspecified, I10 - Essential (primary) hypertension, Z79.4 - skilled nursing (current) use of insulin Medications: New semaglutide (Ozempic) 2 mg (0.75 mL) subcut QWEEK 3 mL 5RF empagliflozin (Jardiance) 10 mg PO QAM 90 tabs 3RF polyethylene glycol 3350 (Miralax) 17 grams PO DAILY 510 grams 1RF Discontinued canagliflozin (Invokana) Discontinued Reason: Doctor's Order 300 mg PO DAILY 30 tabs 5RF E11.42 - Type 2 diabetes mellitus with diabetic polyneuropathy, Z79.4 - long term care phlebotomist (current) use of insulin semaglutide (Ozempic) Discontinued Reason: Duplicate 1 mg (0.75 mL) subcut QWEEK 3 mL 3RF Coding Level of Care Code Est Pt Level 4 (82441) Complex EM visit Add On G2211 Diagnoses Type 2 diabetes mellitus with diabetic polyneuropathy, with long-term current use of insulin E11.42; Z79.4 Diabetes mellitus custodial insulin use: with long term care phlebotomist use Obesity with body mass index of 30.0-39.9 E66.9 Hyperlipidemia LDL goal <70 E78.5 Essential hypertension I10
[2024-09-11 10:16] LABS: Glucose, Whole Blood 154 mg/dL (60-115)
== END 2024-09-11 10:44 | disposition home or self-care (01) ==
PROVIDERS: PCP Internal Medicine; Visit Provider Physician Assistant
DX: E11.42 Type 2 diabetes mellitus with diabetic polyneuropathy (principal); Z79.4 Long term (current) use of insulin; E66.9 Obesity, unspecified; E78.5 Hyperlipidemia, unspecified; I10 Essential (primary) hypertension; Z13.9 Encounter for screening, unspecified

== ENCOUNTER → 2024-09-11 10:01 | Outpatient (BNVA) | payer OTHER, SELFPAY | PROVIDERS: PCP Internal Medicine; Visit Provider Physician Assistant | DX: E11.42 Type 2 diabetes mellitus with diabetic polyneuropathy (principal); Z79.4 Long term (current) use of insulin; E66.9 Obesity, unspecified; E78.5 Hyperlipidemia, unspecified; I10 Essential (primary) hypertension | CPT/HCPCS: 82947; 83036; 99212 ==

== ENCOUNTER 2024-09-25 11:44 | Outpatient (AMB) | payer OTHER, SELFPAY ==
--- NOTE | 2024-09-25 11:51 | A.OFFVIS_ITS ---
Vital Signs 09/25/24 11:52 Height 5 ft 4 in Weight 176 lb BMI 30.2 BP 196/80 H Blood Pressure Location Lt brachial Position Sitting Respiration 16 Pulse 78 Pulse Source Pulse Oximeter Pulse Oximetry (%) 100 Oxygen Delivery Method Room Air Intake Visit Reasons: FU request knee pain Allergies GEL ELECTRODES Allergy (Mild, Uncoded 09/25/24 11:54) RASH Medication List - Last Reconciled 09/25/24 by Monica Brock LPN acetaminophen (Tylenol Extra Strength) 500 mg PO Q6H PRN alcohol swabs pad topical amlodipine 2.5 mg PO DAILY aspirin 81 mg PO DAILY atenolol 50 mg PO DAILY atorvastatin 40 mg PO DAILY@1700 blood sugar diagnostic (FreeStyle Lite Strips) DIRECTED 4 TIMES A DAY geccammazc-mgyydwtlnjfpl-isfm 50-300-40 mg (Fioricet) 1 cap PO Q8H PRN cholecalciferol (vitamin D3) 50 mcg PO DAILY empagliflozin (Jardiance) 10 mg PO QAM ferrous sulfate 325 mg PO DAILY flash glucose scanning reader ([employer]Style Marty 2 [place]) As directed flash glucose sensor (FreeStyle Marty 2 Sensor kit) DIRECTED CHANGE EVERY 14 DAYS gabapentin 300 mg PO BID glucagon (Gvoke HypoPen 2-Pack) 1 mg (0.2 mL) subcut ONCE insulin glargine (Lantus Solostar U-100 Insulin) 50 units (0.5 mL) subcut BEDTIME insulin lispro (Admelog SoloStar U-100 Insulin lispro) 15 u for small meals, 15 u for large, + 2 units for bg>200, + 3 units for BG >250, + 4 units bg >300mg/dl. Of note..for very light meal use only 6 units. subcut 3 times a day; 30 days lisinopril 40 mg PO DAILY metformin 500 mg PO BID 90 days pantoprazole (Protonix) 40 mg PO DAILY pen needle, diabetic As directed polyethylene glycol 3350 (Miralax) 17 grams PO DAILY semaglutide (Ozempic) 2 mg (0.75 mL) subcut QWEEK sucralfate 1 g PO TID sumatriptan succinate mg PO HPI HPI FU request knee pain: Details: 64-year-old female who presents to the office today for follow-up. Patient received right AC joint injection on 08/12/24. While in the office today, she reports 80% relief following the procedure. She would like to get a repeat knee injection today since her knee pain has been extremely bothersome lately. Denies any recent cough, cold, infection, fever or other significant changes in medical history since last office visit. Past procedures: 08/12/24: Right AC joint injection, 80% relief. 06/22/24: Left knee intraarticular injection with Kenalog, US-guided: 02/28/24: Right knee injection with Kenalo% relief, ongoing. 12/27/2023: Bilateral subacromial shoulder bursa injections, ultrasound guided: >70% relief. 06/17/2023: Bilateral acromioclavicular joint injection: 75% relief. 06/17/2023: Right diagnostic infrapatellar saphenous nerve block: 100% relief. [facility] Medical History Arthritis Anemia GI bleed Temporal headache Urinary incontinence Chronic constipation Fibromyalgia Primary osteoarthritis of knees, bilateral NAFLD (nonalcoholic fatty liver disease) Tubular adenoma of colon Essential hypertension Neuropathy Osteoarthritis DARIEL on CPAP Upper GI bleed Hepatomegaly History of alcohol abuse Stroke Depression Anxiety Hyperlipidemia LDL goal <70 Obesity with body mass index of 30.0-39.9 Type 2 diabetes mellitus with diabetic polyneuropathy Surgical History History of temporal artery biopsy Hx of esophagogastroduodenoscopy Hx of colonoscopy Family History Father Diabetes Mother Hypertension Daughter Breast cancer Ovarian cancer Social History Household Members: Family Household Members Other:: adult child and grandchild Are you a primary dialysis patient care technician to a significant other at home: No Do you presently have visiting nurse or other home services: No Alcohol intake: former Patient Tobacco Use Status: Former Tobacco user Years Smoked: quit 10 years ago Current occupational status: disabled Current occupation: rt handed Review of Systems Const All systems reviewed & are unremarkable except as noted in HPI and below Physical Exam Vital Signs: Last Vital Signs Pulse 78 09/25/24 11:52 Resp 16 11/22/24 11:52 BP 196/80 H 11/22/24 11:52 Pulse Ox 100 09/25/24 11:52 Oxygen Delivery Method Room Air 09/25/24 11:52 BMI result Body Mass Index 30.2 General: Appears afebrile. Alert and oriented. Mood and affect appropriate. Follows and participates in conversation appropriately. Respiratory effort is unlabored. Able to transition from sit to stand unassisted. Ambulates with bilaterally normal heel strike and toe off. Office Procedures AMB Joint Injection/Aspiration Joint Injection/Aspiration Primary Site: right knee Prep: site was prepped using sterile technique Injected: 40 mg of and Kenalog Approach Used: anteromedial Procedure: The patient tolerated the procedure well Coding 58104 - Glenohumeral/Tronchanteric Bursa/Intraarticular Procedure code (CPT) selection complete Results Reviewed Results Reviewed: No imaging is available for review. Assessment & Plan Assessment & Plan (1) Bilateral knee pain: Code(s): M25.561 - Pain in right knee; M25.562 - Pain in left knee Category: Medical Plan Patient is status post right knee injection. The patient tolerated the procedure well and was discharged home in stable condition with discharge instructions.? All questions were answered. She will return to the clinic as needed for a repeat injection. Scribed for Dr. Oneill by [facility] director, on 09/25/2024. I, Dr. Oneill, have personally reviewed and agree with the information entered by the scribe. Coding Level of Care Code Procedure Only Diagnoses Bilateral knee pain M25.561; M25.562 CPT Codes Coding - Joint 7: 47200 - Glenohumeral/Tronchanteric Bursa/Intraarticular ([id number])
[2024-09-25 11:52] VITALS: BP 196/80; PULSE 78; RESP 16; O2SAT 100; BMI 30.2
== END 2024-09-25 12:14 | disposition home or self-care (01) ==
PROVIDERS: PCP Internal Medicine; Visit Provider Internal Medicine
DX: M25.561 Pain in right knee (principal)
CPT/HCPCS: 20610

== ENCOUNTER → 2024-09-25 11:44 | Outpatient (BNVA) | payer OTHER, SELFPAY | PROVIDERS: PCP Internal Medicine; Visit Provider Internal Medicine | DX: M25.561 Pain in right knee (principal); M25.562 Pain in left knee | CPT/HCPCS: 20610; J2795; J3301 ==

== ENCOUNTER 2024-10-12 11:51 | Outpatient (AMB) | payer OTHER, SELFPAY ==
--- NOTE | 2024-10-12 12:03 | A.OFFVIS_ITS ---
Vital Signs 10/12/24 12:05 Height 5 ft 4 in Weight 176 lb BMI 30.2 BP 178/78 H Blood Pressure Location Lt brachial Position Sitting Respiration 16 Pulse 83 Pulse Source Pulse Oximeter Pulse Oximetry (%) 100 Oxygen Delivery Method Room Air Intake Visit Reasons: Hip Inj Allergies GEL ELECTRODES Allergy (Mild, Uncoded 10/12/24 12:09) RASH Medication List - Last Reconciled 10/12/24 by Monica Brock LPN acetaminophen (Tylenol Extra Strength) 500 mg PO Q6H PRN alcohol swabs pad topical amlodipine 2.5 mg PO DAILY aspirin 81 mg PO DAILY atenolol 50 mg PO DAILY atorvastatin 40 mg PO DAILY@1700 blood sugar diagnostic (FreeStyle Lite Strips) DIRECTED 4 TIMES A DAY zosbxcgjnx-dsvpgwzjhbjls-rybh 50-300-40 mg (Fioricet) 1 cap PO Q8H PRN cholecalciferol (vitamin D3) 50 mcg PO DAILY empagliflozin (Jardiance) 10 mg PO QAM ferrous sulfate 325 mg PO DAILY flash glucose scanning reader ([employer]Style Marty 2 [place]) As directed flash glucose sensor (FreeStyle Marty 2 Sensor kit) DIRECTED CHANGE EVERY 14 DAYS gabapentin 300 mg PO BID glucagon (Gvoke HypoPen 2-Pack) 1 mg (0.2 mL) subcut ONCE insulin glargine (Lantus Solostar U-100 Insulin) 50 units (0.5 mL) subcut BEDTIME insulin lispro (Admelog SoloStar U-100 Insulin lispro) 15 u for small meals, 15 u for large, + 2 units for bg>200, + 3 units for BG >250, + 4 units bg >300mg/dl. Of note..for very light meal use only 6 units. subcut 3 times a day; 30 days lisinopril 40 mg PO DAILY metformin 500 mg PO BID 90 days pantoprazole (Protonix) 40 mg PO DAILY pen needle, diabetic As directed polyethylene glycol 3350 (Miralax) 17 grams PO DAILY semaglutide (Ozempic) 2 mg (0.75 mL) subcut QWEEK sucralfate 1 g PO TID sumatriptan succinate mg PO HPI HPI Hip Inj: Details: 64-year-old female who presents today to the office for a hip injection. Denies any recent cough, cold, infection, fever or other significant changes in medical history since last office visit.? Past procedures: 09/25/24: right knee injection: 90% relief. 08/12/24: Right AC joint injection, 80% relief. 06/22/24: Left knee intraarticular injection with Kenalog, US-guided: 02/28/24: Right knee injection with Kenalo% relief, ongoing. 12/27/2023: Bilateral subacromial shoulder bursa injections, ultrasound guided: >70% relief. 06/17/2023: Bilateral acromioclavicular joint injection: 75% relief. 06/17/2023: Right diagnostic infrapatellar saphenous nerve block: 100% relief. [facility] Medical History Arthritis Anemia GI bleed Temporal headache Urinary incontinence Chronic constipation Fibromyalgia Primary osteoarthritis of knees, bilateral NAFLD (nonalcoholic fatty liver disease) Tubular adenoma of colon Essential hypertension Neuropathy Osteoarthritis DARIEL on CPAP Upper GI bleed Hepatomegaly History of alcohol abuse Stroke Depression Anxiety Hyperlipidemia LDL goal <70 Obesity with body mass index of 30.0-39.9 Type 2 diabetes mellitus with diabetic polyneuropathy Surgical History History of temporal artery biopsy Hx of esophagogastroduodenoscopy Hx of colonoscopy Family History Father Diabetes Mother Hypertension Daughter Breast cancer Ovarian cancer Social History Household Members: Family Household Members Other:: adult child and grandchild Are you a primary home health aide caregiver to a significant other at home: No Do you presently have visiting nurse or other home services: No Alcohol intake: former Patient Tobacco Use Status: Former Tobacco user Years Smoked: quit 10 years ago Current occupational status: disabled Current occupation: rt handed Review of Systems Const All systems reviewed & are unremarkable except as noted in HPI and below Physical Exam Vital Signs: Last Vital Signs Pulse 83 10/12/24 12:05 Resp 16 10/12/24 12:05 BP 178/78 H 10/12/24 12:05 Pulse Ox 100 10/12/24 12:05 Oxygen Delivery Method Room Air 10/12/24 12:05 BMI result Body Mass Index 30.2 General: Appears afebrile. Alert and oriented. Mood and affect appropriate. Follows and participates in conversation appropriately. Respiratory effort is unlabored. Able to transition from sit to stand unassisted. Ambulates with bilaterally normal heel strike and toe off. Office Procedures AMB Joint Injection/Aspiration Joint Injection/Aspiration Details: Right?intraarticular?hip?injection, US guided. Primary Site: other (right hip) Prep: site was prepped using sterile technique Injected: 40 mg of, Kenalog, with 1 mL of (0.25% ropivacaine), 1% plain lidocaine and in the joint Approach Used: anterolateral Procedure: The patient tolerated the procedure well Coding Details: An ultrasound image of the injection was taken and stored in the permanent record. - Large joint (Right, US guided.) Procedure code (CPT) selection complete Results Reviewed Results Reviewed: No imaging is available for review. Assessment & Plan Assessment & Plan (1) Hip osteoarthritis: Code(s): M16.9 - Osteoarthritis of hip, unspecified Category: Medical Plan Patient is status post right intraarticular hip injection, US guided. Patient tolerated procedure well and was discharged home in stable condition with discharge instructions.? All questions were answered. Follow-up as needed. Scribed for Dr. Oneill by Johnnie Flores, biomedical equipment specialist, on 10/12/2024. I, Dr. Oneill, have personally reviewed and agree with the information entered by the scribe. Coding Level of Care Code Procedure Only Diagnoses Hip osteoarthritis M16.9 CPT Codes Coding - Large joint: 97962 - Large joint ([id number])
[2024-10-12 12:05] VITALS: BP 178/78; PULSE 83; RESP 16; O2SAT 100; BMI 30.2
--- OUTSIDE RECORDS SUMMARY | 2024-10-14 15:20 | XMS_ITS ---
Author Organization Mal Yin MD Address [address] [place] [phone] Care Team Providers Care Laminating Machine Operator Name Role Phone Mal Yin Primary Care Provider [phone] REASON FOR VISIT refill MEDICATIONS Medication SIG (Take, Route, Fr equency, Duration) Notes Start Date End Date Status Sucralfate 1 GM 1 tablet on an empty stomach Orally 3 times a day for 30 day(s) 08/07/2024 Acti ve Encounters Encounter Location Date Provider Diagnosis Mal Yin MD [address] [facility] [address] [place] [phone] 08/07/2024 Mal Yin PLAN OF TREATMENT Medication Medication Name Sig Start Date Stop Date Notes Sucralfate 1 GM 1 tablet on an empty stomach Orally 3 times a day for 30 day(s) 08/07/2024 Next Appt Details Provider Name:Mal quispe, 10/15/2024 02:00:00 PM, [address] [place] [address], [address], [phone], Provider Name:Mal quispe, 12/24/2024 08:00:00 AM, [address] [place] [address], [address], [phone], Provider Name:Mal quispe, 12/31/2024 02:30:00 PM, [address] [place] [address] Drive, [address], [place], [place], [phone],
--- OUTSIDE RECORDS SUMMARY | 2024-10-14 15:20 | XMS_ITS ---
Author Organization Mal Yin MD Address [address] [place], [place] [phone] Care Team Providers Care Logistics Service Representative Name Role Phone Mal Yin Primary Care Provider [phone] REASON FOR VISIT ER Visit rec'd Encounters Encounter Location Date Provider Diagnosis Mal Yin MD [address] [facility] [address] [place], [place] [phone] 07/17/2024 Mal Yin PLAN OF TREATMENT Next Appt Details Provider Name:Mal quispe, 10/15/2024 02:00:00 PM, [address] [place] [address], [address] [place] [address], [phone], Provider Name:Mal George ieana, 12/24/2024 08:00:00 AM, [address] [place] [address], [address] [facility], [place], [place], [phone], Provider Name:Mal quispe, 12/31/2024 02:30:00 PM, [address] [place] [address], [place] [address], [place], [place], [phone],
--- OUTSIDE RECORDS SUMMARY | 2024-10-14 15:20 | XMS_ITS ---
Author Organization Mal Yin MD Address [address] [place], [place] [id number] Care Team Providers Care Meter Reading Clerk Name Role Phone Mal Yin Primary Care Provider [phone] ALLERGIES No Known Allergies RESULTS Component Value Reference Range Notes Hemoglobin A1c Reviewed date:07/03/2024 01:52:19 PM Interpretation: Performing Lab: Notes/Report: Value Hemoglobin A1c 7.3 Glucose, finger stick Reviewed date:07/03/2024 01:45:46 PM Interpretation: Performing Lab: Notes/Report: Value 170 REASON FOR VISIT 6 MO F/U MEDICATIONS Medication SIG (Take, Route, Frequency, Duration) Notes Start Date End Date Status Diprolene AF 0.05 % 1 application to affected area Externally Once a day 11/25/2018 Not-Taking Lidocaine HCl 4 % as directed External ly at night for 30 days 01/10/2021 Not-Taking Spironolactone-HCTZ 25-25 MG TAKE 1 TABLET BY MOUTH EVERY DAY 33 for 90 Active Mapap 500 MG 2 capsules as needed Orally every 6 hrs Not-Taking Ketoconazole 2 % Externally No t-Taking Lisinopril 40 MG TAKE 1 TABLET BY MANDI TH EVERY DAY for 90 Active Ferrous Sulfate 325 (65 Fe) MG TAKE 1 TABLET BY MOUTH EVERY DAY for 90 Active BD Pen Needle Kelsey 2nd Gen 32G X 4 MM USE DIRECTED 4 TIMES A DAY for 30 Active Atorvastatin Calcium 40 MG 1 tablet Orally Once a day Active Atenolol 50 MG TAKE 1 TABLET BY MANDI TH EVERY DAY Active D3 50 MCG (1999 UT) TAKE 1 TABLET BY MANDI TH EVERY DAY for 90 Active Triamcinolone Acetonide 0.1 % APPLY DAILY TO SKIN EVERY DAY FOR 14 DAYS for 60 Active Aspirin Low Dose 81 MG TAKE 1 TABLET BY MOUTH EVERY DAY for 90 Active Alcohol Pads 70 % as directed on skin 4 times per day for 90 days 08/26/2018 Active Freestyle Test Strips to test blood suga r invitro three times day before meals for 30 days Active traMADol HCl 50 MG 1 tablet as needed Orally Once a day Active Fioricet 50-300-40 MG 1 capsule as neede d Orally every 4 hrs Active FreeStyle Lite Test - USE DIRECTED TO TEST BLOOD SUGAR 3 TIMES A DAY BEFORE MEALS for 30 Active Omeprazole 40 MG 1 capsule 30 minutes before morning meal Orally Once a day 04/11/2020 Active PenTips 31G X 5 MM 1 sub q 4 times per day for 30 days Active Admelog SoloStar 100 UNIT/ML as directed Subcutaneous -15 18 units before meals three times per day total 75 units per day Active TRUEplus Lancets 28G - 1 test 3 times pe r day 3 times for 30 days Active Vitamin C 250 MG 1 tablet Orally Once a day Active DULoxetine HCl 30 MG 1 capsule Orally Tw ice a day for 30 days Active Lantus SoloStar 100 UNIT/ML 50 units Subcutaneous once a day Active SUMAtriptan Succinate 50 MG 1 tablet at least 2 hours between doses as needed Orally Twice a day Active metFORMIN HCl 500 MG 2 tablet with meals Orally Twice a day Active tiZANidine HCl 2 MG 1 tablet as needed Orally Three times a day Active Ozempic (0.25 or 0.5 MG/DOSE) 2 MG/3ML 4mg/3ml 0.75 once a week Active GlucaGen HypoKit 1 MG as directed Inject ion as needed Active Gabapentin 300 MG 1 capsule Orally Twi ce a day Active VITAL SIGNS BMI 33.98 kg/m2 07/03/2024 Blood pressure systolic 102 mm Hg 07/03/20 24 Blood pressure diastolic 46 mm Hg 024 Height 60 in 07/03/2024 Weight 174 lbs 07/03/2024 weight is up 2 pounds since 04-09-24 Encounters Encounter Location Date Provider Diagnosis Mal Yin MD [address] [place] [address] Drive [address] [place], [place] [phone] 07/03/2024 Mal Yin Type 2 diabetes, controlled, with neuropathy E11.40 ; Frequent headaches R51.9 and Vision changes H53.9 ASSESSMENTS Encounter Date Diagnosis Assessment Notes Treatment Notes Treatment Clinical Notes 07/03/2024 Type 2 diabetes, controlled, with neuropathy (ICD-10 - E11.40) doing well at present. on multiple meds followed at [facility], will continue current regiment 07/03/2024 Frequent headaches (ICD-10 - R51.9) now felt to be migraine 07/03/2024 Vision changes (ICD-10 - H53.9) is going to see specialist next month PLAN OF TREATMENT Medication Medication Name Sig Start Date Stop Date Notes traMADol HCl 50 MG 1 tablet as needed O rally Once a day Fioricet 50-300-40 MG 1 capsule as neede d Orally every 4 hrs Admelog SoloStar 100 UNIT/ML as directed Subcutaneous -15 18 units before meals three times per day total 75 units per day Lantus SoloStar 100 UNIT/ML 50 units Sub cutaneous once a day metFORMIN HCl 500 MG 2 tablet with meals Orally Twice a day Ozempic (0.25 or 0.5 MG/DOSE) 2 MG/3ML 4mg/3ml 0.75 once a week GlucaGen HypoKit 1 MG as directed Inject ion as needed Treatment Notes Assessment Notes Type 2 diabetes, controlled, with neuropathy doing well at present. on multiple meds followed at [facility], will continue current regiment Frequent headaches now felt to be migra ine Vision changes is going to see spec ialist next month Next Appt Details Provider Name:Mal quispe, 10/15/2024 02:00:00 PM, [address] [place] [address], [address] [facility], [place], [place], [phone], Provider Name:Mal quispe, 12/24/2024 08:00:00 AM, [address] [place] [address], [address], [place], [place], [phone], Provider Name:Mal quispe, 12/31/2024 02:30:00 PM, [address] [place] [address], [address] [facility], [place], [place], [phone], Progress Notes * Examination Category Sub-Category Detail Notes General Examination GENERAL APPEARANCE: alert, w ell hydrated, in no distress , female HEAD: normocephalic, no ev idence of any tenderness over the temperal arteries HEART: no murmurs, rubs, ga llops, regular rate and rhythm LUNGS: no wheezes, rales, r honchi, good air movement, clear to auscultation bilaterally SKIN: good turgor
--- OUTSIDE RECORDS SUMMARY | 2024-10-14 15:21 | XMS_ITS | Patient Health Record ---
Author Organization Mal Yin MD Address [address] [place], [place] [id number] Care Team Providers Care Controls Designer Name Role Phone Mal Yin Primary Care Provider [phone] ALLERGIES No Known Allergies RESULTS Component Value Reference Range Notes Hemoglobin A1c Reviewed date:03/24/2024 10:53:32 AM Interpretation: Performing Lab: Notes/Report: Value Hemoglobin A1c 6.8 Hemoglobin A1c Reviewed date:07/03/2024 01:52:19 PM Interpretation: Performing Lab: Notes/Report: Value Hemoglobin A1c 7.3 Complete Blood Count Auto Di ff Reviewed date:12/14/2023 06:51:19 PM Interpretation: Performing Lab:[facility], [address] [place] [phone] Notes/Report: White Blood Count 7.1 4.8-10.8 X10*3/uL Red Blood Count 3.62 4.20-5.50 X10*6/uL Hemoglobin 11.6 12.0-16.0 g/dl Hematocrit 36.0 37.0-47.0 % Mean Corpuscular Volume 99.4 80.0-98.0 fL Mean Corpuscular Hemoglobin 32.0 27.0-33.0 pg Mean Corpuscular HGB Conc 32.2 31.0-35.0 g/dl Red Cell Distribution Width 13.1 11.0-16.0 % Platelet Count 149 160-400 X10*3/uL Mean Platelet Volume 13.0 9.4-12.3 fL Neutrophils Percent Auto 63.4 45-73 % Imm Gran Pct Auto 0.3 0.0-0.4 % Lymphocytes Percent Auto 26.9 20-40 % Monocytes Percent Auto 7.5 2-11 % Eosinophils Percent Auto 1.6 0-4 % Basophils Percent Auto 0.3 0-2 % NRBC Pct Auto 0.0 0.0-0.2 /100WBC Neutrophils Absolute Auto 4.5 2.0-8.3 x10*3/u L Imm Gran Abs Auto 0.02 0.00-0.03 X10*3/uL Lymphocytes Absolute Auto 1.9 1.2-4.9 X10*3/u L Monocytes Absolute Auto 0.5 0.1-1.2 X10*3/uL Eosinophils Absolute Auto 0.1 0.0-0.4 X10*3/u L Basophils Absolute Auto 0.0 0.0-0.2 X10*3/uL NRBC Abs Auto 0.000 0.0-0.012 X10*3/uL Comprehensive [place]. Panel Fa st Reviewed date:12/14/2023 06:30:55 PM Interpretation: Performing Lab:[facility], [address] [place] [phone] Notes/Report: Sodium 143 135-145 mmol/L Potassium 3.9 3.3-5.1 mmol/L Chloride 104 96-108 mmol/L Carbon Dioxide 30 22-29 mmol/L Anion Gap 13 12-20 Blood Urea Nitrogen 16 9-16 mg/dL Creatinine 0.74 0.5-1.4 mg/dL Estimated Glomerular Filt Rate > 60 NOTE: For -Danish individuals, multiply the result by 1.210. Chronic Kidney Disease: Estimated GFR < 60 mL/min/1.73m2 Severe Kidney Disease: Estimated GFR < 15 mL/min/1.73m2 Glucose Fasting 144 60-99 mg/dL A fasting glucose of 126 mg/dl or greater on more than one occasion is considered diagnostic of diabetes. Calcium 10.0 8.4-10.2 mg/dL Bilirubin Total 0.3 0.0-1.0 mg/dL Aspartate Amino Transferase 16 5-31 U/L Alanine Aminotransferase 10 0-31 U/L Total Protein 7.9 6.5-8.0 g/dL Albumin Level 4.4 3.5-5.0 g/dL Alkaline Phosphatase 87 39-117 U/L Lipid Panel Reviewed date:12/14/2023 06:31:11 PM Interpretation: Performing Lab:[address] [phone] Notes/Report: Triglycerides 176 <150 mg/dL Desirable Triglyceride: less than 150 mg/dL Borderline High Triglyceride 150-199 mg/dL High Triglyceride: 200-499 mg/dL Very High Triglyceride: greater than or equal to 5OO mg/dL Cholesterol 177 <200 mg/dL Desirable Cholesterol: less than 200 mg/dL Borderline High Cholesterol: 200-239 mg/dL High Cholesterol: greater than 239 mg/dL LDL Cholesterol Calculated 98 <100 mg/dL Desirable LDL: less than 100 mg/dL Near Optimal/Above Optimal LDL: 110-129 mg/dL Borderline High LDL: 130-159 mg/dL High LDL: 160-189 mg/dL Very High LDL: greater than or equal to 190 mg/dL HDL Cholesterol 44 >40 mg/dL Desirable HDL: greater than 40 mg/dL Note: This HDL assay may give artificially low results in patients with liver disease. Vitamin D 25-OH Total Reviewed date:12/14/2023 06:30:41 PM Interpretation: Performing Lab:[address] [phone] Notes/Report: Vitamin D 25-OH Total 42.8 >30 ng/mL Health Based Reference Values* < 20 ng/mL Deficient 20-30 ng/mL Insufficient > 30 ng/mL Sufficient *Terra DIAZ. N Engl J Med. 2007;357:266-280 Care must be taken in interpreting Vitamin D results from different laboratories and methodologies. Published data demonstrated that results from patients undergoing hemodialysis may show a negative bias when tested with various automated 25-OH vitamin D assays when compared to LC-MS/MS. When testing samples from patients whose predominant form of Vitamin D is Vitamin D2, such as patients receiving Vitamin D2 supplementation, results that are subtherapeutic should be confirmed with another method such as LC-MS/MS. Microalbumin, Random Reviewed date:12/14/2023 06:32:22 PM Interpretation: Performing Lab:[id number] [address] Notes/Report: Creatinine Urine 70.23 Microalbumin Urine 38.0 Microalbum/Creatinine Ratio Ur 54.1 <30 ug/mg cr Albumin/Creatinine Ratio Reference Ranges: Normal: < 30 ug/mg creatinine Microalbuminuria: 30 - 300 ug/mg creatinine Clinical Albuminuria: > 300 ug/mg creatinine Hemoglobin A1c Reviewed date:12/13/2023 11:35:38 AM Interpretation: Performing Lab:[address] [phone] Notes/Report: Hemoglobin A1c % 7.1 <6.0 % Hemoglobin A1C Reference Range Adults: 4.8 - 6.0 % Non diabetic: < 6.0 % Goal: < 7.0 % Additional Action Suggested: > 8.0 % Note: Hemoglobin A1c results are invalid for patients with abnormal amounts of HbF. Blood transfusions may impact the HbA1c concentration in the patient sample. Estimated Average Glucose 157 eAG = Estimated average glucose which is %A1C expressed as average glucose, using the formula of the P5L-Vvvmhpw Average Glucose study (ADAG), Diabetes Care, Vol.31,#8, Jun. 2007 UA ClnCatch+Micro w/rflx Cul t Reviewed date:12/14/2023 06:48:50 PM Interpretation: Performing Lab:[address] [phone] Notes/Report: Urine, Clean Catch Color Urine Yellow Appearance Urine Clear PH 6.5 5.0-9.0 Glucose Urine UA >=1000 Negative mg/dL Urine Blood Negative Negative Specific [place] - Urine >= 1.030 1.005-1.025 Urine Protein Negative Neg-Trace mg/dL Urine Ketones Negative Negative mg/dL Nitrite Urine Negative Negative Leukocyte Esterase Urine Negative Negative RBC Urine 0-2 0-2 /HPF WBC Urine 6-10 0-5 /HPF Squamous Epithelial Cell Urine 3-5 0-2 /HPF Bacteria Urine 1+ None Seen Hyaline Casts Urine 0-2 0-2 /LPF Complete Blood Count Man Dif Reviewed date:12/14/2023 06:30:31 PM Interpretation: Performing Lab:[address] [phone] Notes/Report: White Blood Count 7.1 4.8-10.8 X10*3/uL Red Blood Count 3.62 4.20-5.50 X10*6/uL Hemoglobin 11.6 12.0-16.0 g/dl Hematocrit 36.0 37.0-47.0 % Mean Corpuscular Volume 99.4 80.0-98.0 fL Mean Corpuscular Hemoglobin 32.0 27.0-33.0 pg Mean Corpuscular HGB Conc 32.2 31.0-35.0 g/dl Red Cell Distribution Width 13.1 11.0-16.0 % Platelet Count 149 160-400 X10*3/uL Mean Platelet Volume 13.0 9.4-12.3 fL NRBC Pct Auto 0.0 0.0-0.2 /100WBC NRBC Abs Auto 0.000 0.0-0.012 X10*3/uL Neutrophils Percent Manual 66 45-73 % Band Neutrophils Percent 0 3-5 % Lymphocytes Percent Manual 27 20-40 % Monocytes Percent Manual 6 2-11 % Eosinophils Percent Manual 1 0-4 % Neutrophils Absolute Manual 4.7 2.0-8.3 X10*3 /uL Lymphocytes Absolute Manual 1.9 1.2-4.9 X10*3 /uL Monocytes Absolute Manual 0.4 0.1-1.2 X10*3/u L Eosinophils Absolute Manual 0.1 0.0-0.4 X10*3 /uL Platelet Estimate NORMAL NORMAL Platelet Morphology Comment NORMAL RBC Morphology NOTED Macrocytosis 1+ (5-14) Urine Culture Reviewed date:12/14/2023 06:36:43 PM Interpretation: Performing Lab:[facility], [address] [place] [phone] Notes/Report: Urine Culture Report Result Urine Culture > 100,000 cfu/ml Urine Culture Mixed bacterial claude a characteristic of Urine Culture urogenital contamination. XR knee standing BI Reviewed date:12/31/2023 04:31:32 PM Interpretation: Performing Lab: Notes/Report: [address] [address] XRay Report Signed Patient: Delaney Dunlap MR#: [id number] : 1960 Acct:[id number] Age/Sex: 63 / F ADM Date: 12/30/23 Loc: HO.XRAY Attending Dr: Dev Oneill MD Ordering Physician: Dev Oneill MD Date of Service: 12/30/23 Procedure(s): XR knee standing BI Accession Number(s): [id number] cc: Mal Yin MD; Dev Oneill MD EXAMINATION: XR KNEE AP STANDING CLINICAL INFORMATION: Pain in right knee. COMPARISON: Left knee of 11/25/2019 radiographs. Bilateral knee radiographs of 05/11/2019. TECHNIQUE: AP bilateral standing view of the knees was obtained. FINDINGS: The bones are diffusely demineralized. Bilateral atherosclerotic calcifications. Advanced degenerative changes in the medial compartments of the bilateral knees with joint space narrowing, faint chondrocalcinosis and medial marginal osteophytes. Small bilateral lateral marginal osteophytes. XR/XR knee standing BI IMPRESSION: Advanced degenerative changes in the medial compartments of the bilateral knees. Dictated By: Christelle Jaimes MD Signed By: <Electronically signed by Christelle Jaimes MD in [place]> 12/31/23 1432 DD/ 1259 TD/TT: Tandem Mill Operator: Glucose, Whole Blood Reviewed date:03/09/2024 12:30:37 PM Interpretation: Performing Lab:[facility], [address] [place] [phone] Notes/Report: Glucose, Whole Blood 118 60-115 mg/dL METER #: [id number] Testing performed [facility] , [address], [facility]. CT head/brain wo con Reviewed date:03/23/2024 11:00:21 AM Interpretation:auth pending Performing Lab: Notes/Report: [address] [address] [address] Scan Report Signed Patient: Delaney Dunlap MR#: [id number] : 1960 Acct:[id number] Age/Sex: 63 / F ADM Date: 03/18/24 Loc: HO.ED Attending Dr: Ordering Physician: Yessica Matias Date of Service: 03/18/24 Procedure(s): CT head/brain wo IV con Accession Number(s): [id number] cc: Mal Yin MD; Yessica Matias EXAMINATION: CT HEAD WITHOUT CONTRAST CLINICAL INFORMATION: Severe grade 10 out of 10 headache COMPARISON: CT scan of brain on 07/09/2015 TECHNIQUE: Contiguous axial imaging was performed from the skull base to vertex without intravenous administration of contrast. This CT examination was performed using dose optimization techniques as appropriate, variously including the following: *Automated exposure control *Adjustment of mA and/or kV according to patient size (this includes techniques or standardized protocols for targeted exams where dose is matched to indication/reason for exam; i.e. extremities or head) *Use of iterative reconstruction technique DLP: 524.08 mGy-cm FINDINGS: Cerebral sulci and cisterns are normal. There is mild ventriculomegaly. A probably chronic focal right superior parietal infarction associated with dilatation of left central sulcus is seen. There is no midline shift, no abnormal intra- or extra- axial fluid accumulation. Greer and white matter differentiation is normal. Bone window images show no evidence of skull fracture. CT/CT head/brain wo IV con IMPRESSION: 1. Interval development of mild ventriculomegaly. 2. No intracranial hemorrhage or skull fracture is seen. 3. No evidence of space occupying lesion could be found. 4. 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 This was not evident on MRI of the brain on 11/16/2013. Repeat evaluation with noncontrast MRI of the brain is recommended. 5. The current plain CT scan of the brain shows no diagnostic evidence of acute cerebral infarction. Dictated By: Dang Parada Signed By: <Electronically signed by Dang Parada in [place]> 03/18/24 1433 DD/ 1319 TD/TT: Tandem Mill Operator: Erythrocyte Sedimentation Ra te Reviewed date:03/26/2024 12:40:43 PM Interpretation: Performing Lab:[facility], [address] [place] [phone] Notes/Report: Erythrocyte Sedimentation Rate 81 0-20 MM/HR Patients with polycythemia and many hemoglobin abnormalities may have depressed sed rates whereas patients with anemia may have elevated sed rates. Glucose, Whole Blood Reviewed date:04/03/2024 12:57:06 PM Interpretation: Performing Lab:[facility], [address] [place] [phone] Notes/Report: Glucose, Whole Blood 85 60-115 mg/dL METER # : [id number] Pathology Reviewed date:04/09/2024 11:34:41 AM Interpretation:see back 04-09-2024 Performing Lab:[facility], [address] [place] [phone] Notes/Report: Glucose, Whole Blood Reviewed date:06/12/2024 09:40:49 AM Interpretation: Performing Lab:[facility], [address] [place] [phone] Notes/Report: Glucose, Whole Blood 112 60-115 mg/dL METER #: [id number] Testing performed in the [facility], [facility]. Liver Panel Reviewed date:06/22/2024 12:39:00 PM Interpretation: Performing Lab:[facility], [address] [place] [phone] Notes/Report: Bilirubin Total 0.4 0.0-1.0 mg/dL Bilirubin Direct 0.1 0.0-0.5 mg/dL Aspartate Amino Transferase 17 5-31 U/L Alanine Aminotransferase 7 0-31 U/L Total Protein 7.3 6.5-8.0 g/dL Albumin Level 4.3 3.5-5.0 g/dL Alkaline Phosphatase 73 39-117 U/L Glucose Fasting Reviewed date:06/22/2024 12:38:45 PM Interpretation: Performing Lab:[facility], [address] [place] [phone] Notes/Report: Glucose Fasting 143 60-99 mg/dL A fasting glucose of 126 mg/dl or greater on more than one occasion is considered diagnostic of diabetes. Lipid Panel with Reflex Reviewed date:06/22/2024 12:39:09 PM Interpretation: Performing Lab:[facility], [address] [place] [phone] Notes/Report: Triglycerides 192 <150 mg/dL Desirable Triglyceride: less than 150 mg/dL Borderline High Triglyceride 150-199 mg/dL High Triglyceride: 200-499 mg/dL Very High Triglyceride: greater than or equal to 5OO mg/dL Cholesterol 175 <200 mg/dL Desirable Cholesterol: less than 200 mg/dL Borderline High Cholesterol: 200-239 mg/dL High Cholesterol: greater than 239 mg/dL LDL Cholesterol Calculated 97 <100 mg/dL Desirable LDL: less than 100 mg/dL Near Optimal/Above Optimal LDL: 110-129 mg/dL Borderline High LDL: 130-159 mg/dL High LDL: 160-189 mg/dL Very High LDL: greater than or equal to 190 mg/dL HDL Cholesterol 40 >40 mg/dL Desirable HDL: greater than 40 mg/dL Note: This HDL assay may give artificially low results in patients with liver disease. Hemoglobin A1c Reviewed date:06/22/2024 10:59:44 AM Interpretation: Performing Lab:[address] [phone] Notes/Report: Hemoglobin A1c % 7.3 <6.0 % Hemoglobin A1C Reference Range Adults: 4.8 - 6.0 % Non diabetic: < 6.0 % Goal: < 7.0 % Additional Action Suggested: > 8.0 % Note: Hemoglobin A1c results are invalid for patients with abnormal amounts of HbF. Blood transfusions may impact the HbA1c concentration in the patient sample. Estimated Average Glucose 163 eAG = Estimated average glucose which is %A1C expressed as average glucose, using the formula of the V1Q-Khtpuiv Average Glucose study (ADAG), Diabetes Care, Vol.31,#8, 2007 Creatinine GFR POC Reviewed date:07/02/2024 05:06:45 PM Interpretation: Performing Lab:[facility], [address] [place] [phone] Notes/Report: [id number] 0.84 >60 0952 HO.DIAZAAR Creatinine POC 0.8 0.5-1.4 mg/dL GFR POC > 60 Chronic Kidney Disease: Estimated GFR < 60 mL/min/1.73m2 Severe Kidney Disease: Estimated GFR < 15 mL/min/1.73m2 CT angio head neck Reviewed date:07/03/2024 09:33:15 AM Interpretation: Performing Lab: Notes/Report: [address] [address] [address] Scan Report Signed Patient: Delaney Dunlap MR#: [id number] : 1960 Acct:[id number] Age/Sex: 63 / F ADM Date: 07/02/24 Loc: HO.CT Attending Dr: Jemima Davidson MD Ordering Physician: Jemima Davidson MD Date of Service: 07/02/24 Procedure(s): CT angio head neck Accession Number(s): [id number] cc: Mal Yin MD; Jemima Davidson MD EXAMINATION: CT ANGIOGRAM HEAD CT ANGIOGRAM NECK CLINICAL INFORMATION: Cerebral infarction. COMPARISON: CT head from 03/18/2024. TECHNIQUE: Initial noncontrast mold swabber imaging of the head and neck was performed. Noncontrast head CT was also performed. Test bolus sequences followed by intravenous administration 70 mL of Omnipaque 350. Helical imaging was performed in the axial plane from the aortic arch to the skull vertex. Delayed postcontrast imaging of the head was also performed. The data was processed at the tomography technologist's workstation for generation of MIP sequences. Angled MIPs and volume rendered reformatted images were also generated at an offline 3D workstation. Stenoses are assessed in accordance with NASCET criteria unless otherwise indicated. This CT examination was performed using dose optimization techniques as appropriate, variously including the following: *Automated exposure control. *Adjustment of mA and/or kV according to patient size (this includes techniques or standardized protocols for targeted exams where dose is matched to indication/reason for exam; i.e. extremities or head). *Use of iterative reconstruction technique. DLP: 2153 mGy-cm FINDINGS: CT Head: There is chronic encephalomalacia within the right parietal lobe with associated volume loss. No additional loss of greer-white matter differentiation. No evidence of acute intracranial hemorrhage. A few foci of hypoattenuation in the periventricular and deep white matter are consistent with mild microangiopathy. Proportional prominence of the ventricles and sulcal spaces without evidence of obstructive hydrocephalus. No abnormal mass effect or midline shift. No extra-axial fluid collections. No pathologic intra-axial enhancement. No acute soft tissue or osseous abnormalities. Mild mucosal thickening of the paranasal sinuses. The mastoid air cells and middle ear cavities are clear. The patient is edentulous. Bilateral lens extractions. CT Neck: The thyroid gland and remaining cervical soft tissues are within normal limits. Straightening of the normal cervical lordosis. Mild degenerative anterolisthesis of C4 on C5. Moderate degenerative disc disease from C3-T1. Disc-osteophyte complex formation from C3-C6 including a central disc extrusion with superior migration at C3-C4. Facet and uncovertebral joint arthropathy leads to osseous encroachment on the neural foramina from C3-C6. CT Upper Chest: The visualized lung apices and upper mediastinum are within normal limits. Neck CTA: Aortic Arch: Normal contour and caliber with moderate calcific atherosclerotic disease. Two vessel branching pattern of the arch with left common carotid artery arising from the brachiocephalic trunk. Great Vessel Origins: No significant stenosis of the branch origins. Right Common Carotid Artery: No focal stenosis or occlusion. Cervical Right Internal Carotid Artery: Heavy calcific atherosclerotic disease of the carotid bulb and proximal internal carotid artery causing 80% stenosis. Left Common Carotid Artery: No focal stenosis or occlusion. Cervical Left Internal Carotid Artery: Heavy calcific atherosclerotic disease of the carotid bulb and proximal internal carotid artery causing 70% stenosis. Cervical Right Vertebral Artery: Dominant. Atherosclerotic disease causes moderate stenosis of the origin. No additional focal stenosis or occlusion. Cervical Left Vertebral Artery: Atherosclerotic disease causes moderate stenosis of the origin. No additional focal stenosis or occlusion. Brain CTA: Intracranial Internal Carotid Arteries: Calcific atherosclerotic disease of the intracranial internal carotid arteries without occlusion or flow-limiting stenosis. Right Anterior Cerebral Artery: Normal A1 segment. Normal opacification of the distal YULI segments. Left Anterior Cerebral Artery: Normal A1 segment. Normal opacification of the distal YULI segments. Anterior Communicating Artery: Normal. Right Middle Cerebral Artery: Normal M1 segment of the MCA without focal stenosis or occlusion. Normal arborization of the distal segments. Left Middle Cerebral Artery: Normal M1 segment of the MCA without focal stenosis or occlusion. Normal arborization of the distal segments. Right Vertebral Artery: Normal V4 segment. Normal opacification of the proximal segments of the posterior inferior cerebellar artery. Left Vertebral Artery: Normal V4 segment. The posterior inferior cerebellar artery is not well opacified; however, there is no CT evidence of acute occlusion. Basilar Artery: Normal without focal stenosis or occlusion. Normal appearance of the proximal superior cerebellar arteries. Right Posterior Cerebral Artery: The P1 segment is diminutive. origin of the [employer] with robust opacification of the posterior communicating artery. Normal opacification of the distal [employer] SUPER[employer] segments. Left Posterior Cerebral Artery: Normal P1 segment. Normal opacification of the distal [employer] SUPER[employer] segments. Normal opacification of the superior sagittal, straight, transverse, and sigmoid sinuses. CT/CT angio head neck IMPRESSION: 1. No evidence of acute intracranial hemorrhage or edematous territorial infarction. Chronic encephalomalacia of the right parietal lobe. Mild underlying microangiopathy and generalized cerebral volume loss. 2. CTA of the head and neck without proximal occlusion. 3. Atherosclerotic disease causes 80% stenosis of the origin of the right ICA and 70% stenosis of the origin of the left ICA. Moderate atherosclerotic stenoses of the origins of the vertebral arteries bilaterally. 4. Moderate multilevel degenerative spondyloarthropathy of the cervical spine. Electronically signed by: Damien Nguyen DO 07/02/2024 03:31 PM EDT RP Dictated By: Jonathan Nguyen DO Signed By: <Electronically signed by Jonathan Nguyen DO in OV> 07/02/24 1531 DD/ 0956 TD/TT: 07/02/24 1015 Tandem Mill Operator: BRIGITTE Glucose, finger stick Reviewed date:07/03/2024 01:45:46 PM Interpretation: Performing Lab: Notes/Report: Value 170 Glucose, Whole Blood Reviewed date:09/11/2024 12:34:22 PM Interpretation: Performing Lab:[facility], [address] [place] [phone] Notes/Report: Glucose, Whole Blood 154 60-115 mg/dL METER #: [id number] Testing performed [facility] , [address], [facility]. REASON FOR REFERRAL Reason Other headache syndr ome Diagnosis 1 Other headache syndr ome (G44.89) Referral Organization Mal Yin MD Referring Provider First Name aMl Referring Provider Last Name Annamaria Referring Provider Speciality Internal M edicine Referred Provider Garrett Roy Referred Provider Specialty Surgery General Notes Nina Anderson 10:56:34 AM EDT > patient is aware of appt Referral Priority Routine Referral Appointment Date 03/25/2024 Reason Type 2 diabetes cont rolled, with neuropathy Diagnosis 1 Type 2 diabetes, con trolled, with neuropathy (E11.40) Referral Organization Mal Yin MD Referring Provider First Name Mal Referring Provider Last Name Annamaria Referring Provider Speciality Internal edicine Referred Provider Dudley Lozada Referred Provider Specialty Endocrinolog y General Notes Nina Anderson 11:10:27 AM EDT > appt is with Pebbles LOPEZ , Nina Anderson 03/24/2024 11:19:32 AM EDT > patient is aware of appt Referral Priority Routine Referral Appointment Date 06/08/2024 Reason headaches Diagnosis 1 Other headache syndr ome (G44.89) Referral Organization Mal Yin MD Referring Provider First Name Mal Referring Provider Last Name Annamaria Referring Provider Speciality Internal edicine Referred Provider Jair Villavicencio Referred Provider Specialty Neurology General Notes Nina Anderson 03:00:44 PM EDT > send ER visit , Nina Anderson 03/26/2024 10:02:28 AM EDT > info faxed , Nina Anderson 03/27/2024 11:08:12 AM EDT > patient was called with info and mailed Referral Priority Routine Referral Appointment Date 05/14/2024 Reason PMR Diagnosis 1 PMR (polymyalgia rhe umatica) (M35.3) Referral Organization Mal Yin MD Referring Provider First Name Mal Referring Provider Last Name Annamaria Referring Provider Speciality Internal edicine Referred Provider Christiano Jeffers Referred Provider Specialty Rheumatology General Notes Nina Anderson 02:15:05 PM EDT > info , Nina Anderson 03/26/2024 02:16:41 PM EDT > spoke with office they will put her on a cx list , Nina Anderson 03/27/2024 11:08:41 AM EDT > patint was called with info and mailed Referral Priority Routine Referral Appointment Date 04/28/2024 Reason Duverticulosis Needs GI eval and treat [place] [facility] [place] 1 Diverticulosis (K57. 90) Referral Organization Mal Yin MD Referring Provider First Name Mal Referring Provider Last Name Annamaria Referring Provider Speciality Internal edicine Referred Provider KYLE HOGUE Referred Provider Specialty Gastroentero logy General Notes Nina Anderson 09 / 09:49:50 AM EDT > referral info faxed to office , Nina Anderson 07/17/2024 11:41:29 AM EDT > patient is aware of appt, called office and gave appt date Referral Priority Routine Referral Appointment Date 11/17/2024 MEDICATIONS Medication SIG (Take, Route, Frequency, Duration) Notes Start Date End Date Status D3 50 MCG (1999) TAKE 1 TABLET BY MANDI TH EVERY DAY for 90 Active traMADol HCl 50 MG 1 tablet as needed Orally Once a day Active SUMAtriptan Succinate 50 MG 1 tablet at least 2 hours between doses as needed Orally Twice a day Active Triamcinolone Acetonide 0.1 % APPLY DAILY TO SKIN EVERY DAY FOR 14 DAYS for 60 Active Fioricet 50-300-40 MG 1 capsule as neede d Orally every 4 hrs Active Gabapentin 300 MG 1 capsule Orally Twi ce a day Active Admelog SoloStar 100 UNIT/ML as directed Subcutaneous -15 18 units before meals three times per day total 75 units per day Active Aspirin Low Dose 81 MG TAKE 1 TABLET BY MOUTH EVERY DAY for 90 Active Lisinopril 40 MG TAKE 1 TABLET BY MANDI TH EVERY DAY for 90 Active Alcohol Pads 70 % as directed on skin 4 times per day for 90 days 08/26/2018 Active BD Pen Needle Kelsey 2nd Gen 32G X 4 MM USE DIRECTED 4 TIMES A DAY for 30 Active Atorvastatin Calcium 40 MG 1 tablet Orally Once a day Active Spironolactone-HCTZ 25-25 MG TAKE 1 TABLET BY MOUTH EVERY DAY for 90 Active Lantus SoloStar 100 UNIT/ML 50 units Subcutaneous once a day Active GlucaGen HypoKit 1 MG as directed Inject ion as needed Active Ferrous Sulfate 325 (65 Fe) MG TAKE 1 TABLET BY MOUTH EVERY DAY for 90 Active metFORMIN HCl 500 MG 2 tablet with meals Orally Twice a day Active Atenolol 50 MG TAKE 1 TABLET BY MANDI TH EVERY DAY for 90 Active TRUEplus Lancets 28G - 1 test 3 times pe r day 3 times for 30 days Active Diprolene AF 0.05 % 1 application to affected area Externally Once a day 11/25/2018 Not-Taking Vitamin C 250 MG 1 tablet Orally Once a day Active Lidocaine HCl 4 % as directed External ly at night for 30 days 01/10/2021 Not-Taking tiZANidine HCl 2 MG 1 tablet as needed Orally Three times a day Active FreeStyle Lite Test - USE DIRECTED TO TEST BLOOD SUGAR 3 TIMES A DAY BEFORE MEALS for 30 Active Omeprazole 40 MG 1 capsule 30 minutes before morning meal Orally Once a day 04/11/2020 Active PenTips 31G X 5 MM 1 sub q 4 times per day for 30 days Active Mapap 500 MG 2 capsules as needed Orally every 6 hrs Not-Taking Ozempic (0.25 or 0.5 MG/DOSE) 2 MG/3ML 4mg/3ml 0.75 once a week Active DULoxetine HCl 30 MG 1 capsule Orally Tw ice a day for 30 days Active Ketoconazole 2 % Externally No t-Taking Freestyle Test Strips to test blood suga r invitro three times day before meals for 30 days Active Sucralfate 1 GM TAKE 1 TABLET BY [facility] 3 TIMES A DAY ON AN EMPTY STOMACH FOR 30 DAYS for 30 Active IMMUNIZATIONS Vaccine Route Administration Date Status Comme nts Flu Vaccine Unknown 08/20/2017 Administered pt had the vaccine with old pcp. PPSV23 (Pnemovax) IM Intramuscular 04/21/2018 Administered Fluarix Quadrivalent IM Intramuscular 07/21/2018 Administe red Fluarix Quadrivalent IM Intramuscular 09/07/2019 Administe red Fluarix Quadrivalent Unknown 08/03/2020 Administered CV S SARS-COV-2 Moderna Unknown 03/11/2021 Administered SARS-COV-2 Moderna Unknown 04/08/2021 Administered Fluarix Quadrivalent Unknown 10/14/2021 Administered CV S Fluarix Quadrivalent Unknown 08/12/2022 Administered CV S SOCIAL HISTORY Tobacco Use: Social History Observation Description Date Details (start date - stop date) Former Smoker NA - NA Sex Assigned At : Social History Observation Description Sex Assigned At Unknown Tobacco Use/Smoking Question Answer Notes Patient is a former smoker How long has it been since y ou last smoked? > 10 years Additional Findings: Tobacco Non-User Fo rmer smoker, currently using no form of tobacco Alcohol Screen Question Answer Notes Did you have a drink containing alcohol in the p ast year? No Points 0 Interpretation Negative PROBLEMS Problem Type ICD Code Onset Dates Problem Status W/U Status Risk SNOMED Code Notes Problem Type 2 diabetes mellitus without complications (E11.9) Active confirmed 231897272 Problem Sciatica (M54.30) Active confirmed Scia haley (42709917) Problem Thrombocytopenia (D69.6) Active confirmed 216135244 Problem Vitamin D deficiency (E55.9) Active confirmed 12783279 Problem Other headache syndr ome (G44.89) Active confirmed 124538248 Problem Cerebral infarction, unspecified (I63.9) Active confirmed Cerebral infarction (328127164) Problem Fibromyalgia (M79.7) Active confirmed 2 54610561 Problem Lumbar disc disease (M51.9) Active confirmed 301869900 Problem Essential hypertensi on (I10) Active confirmed 90395686 Problem Type 2 diabetes, controlled, with neuropathy (E11.40) Active confirmed 10164941 Problem Temporal arteritis (M31.6) Active confirmed 040558383 Problem Hypoglycemia (E16.2) Active confirmed 3 78884412 Problem History of CVA (cerebrovascular accident) (Z86.73) Active confirmed 226583258 Problem Intrinsic eczema (L20.84) Active confirmed 44367495 Problem Peptic ulcer (K27.9) Active confirmed 1 1501344 Problem Fatty liver (K76.0) Active confirmed 19 3954705 Problem Hypercholesterolemia (E78.00) Active confirmed 38237735 Problem PMR (polymyalgia rheumatica) (M35.3) Active confirmed Polymyal shayy rheumatica (69820938) Problem Incontinence of fece s, unspecified fecal incontinence type (R15.9) Active confirmed 41172022 Problem Diverticulosis (K57.90) Active confirmed Diverticular disease of colon (832081531) Problem Incontinence in fema le (R32) Active confirmed 94542825 Problem Carpal tunnel syndro me, unspecified laterality (G56.00) Active confirmed 54824930 Problem Visual loss (H54.7) Active confirmed 39 2587234 VITAL SIGNS Blood pressure diastolic 46 mm Hg 07/03/2024 kirti ght is up 2 pounds since 04-09-24 Height 60 in 07/03/2024 weight is up 2 pounds since 04-09-24 Blood pressure systolic 102 mm Hg 07/03/2024 weig ht is up 2 pounds since 04-09-24 Weight 174 lbs 07/03/2024 weight is up 2 pounds since 04-09-24 BMI 33.98 kg/m2 07/03/2024 weight is up 2 pounds since 04-09-24 Encounters Encounter Location Date Provider Diagnosis Mal Yin MD [address] [place] [address] [id number] 12/30/2023 Mal Yin Essential hypertensi on I10 ; Annual physical exam Z00.00 ; Type 2 diabetes, controlled, with neuropathy E11.40 ; Hypercholesterolemia E78.00 and Depression screening Z13.31 Mal Yin MD [address] [place] [address] [id number] 03/31/2024 Mal Yin Temporal arteritis M 31.6 ; Jaw claudication M26.69 and Type 2 diabetes mellitus without complications E11.9 Mal Yin MD [address] [place] [address] [id number] 04/09/2024 Mal Yin Visual loss H54.7 an d Other headache syndrome G44.89 Mal Yin MD [address] [place] [address] [id number] 12/12/2023 Mal Yin Blood tests for rout ine general physical examination Z00.00 ; Type 2 diabetes, controlled, with neuropathy E11.40 ; Essential hypertension I10 ; Hypercholesterolemia E78.00 and Vitamin D deficiency E55.9 Mal Yin MD [address] [place] [address] [id number] 06/22/2024 Mal Yin Type 2 diabetes richy itus without complications E11.9 and Hypercholesterolemia E78.00 Mal Yin MD [address] [place] [address] [id number] 07/03/2024 Mal Yin Type 2 diabetes, controlled, with neuropathy E11.40 ; Frequent headaches R51.9 and Vision changes H53.9 Mal Yin MD [address] [place] [address] [id number] 03/24/2024 Mal iYn Type 2 diabetes, controlled, with neuropathy E11.40 ; Visual loss H54.7 and Other headache syndrome G44.89 Mal Yin MD [address] [place] [address] [id number] 03/10/2024 Mal Yin MD [address] [place] [address] [id number] 03/19/2024 Mal Yin Cerebral infarction, unspecified I63.9 Mal Yin MD [address] [place] [address] [id number] 03/20/2024 Mal Yin MD [address] [place] [address] [id number] 03/20/2024 Mal Yin MD [address] [place] [address] [id number] 03/23/2024 Mal Yin MD [address] [place] [address] [id number] 03/26/2024 Mal Yin MD [address] [place] [address] [id number] 03/26/2024 Mal Yin MD [address] [place] [address] [id number] 07/17/2024 Mal Yin MD [address] [place] [address] [id number] 08/07/2024 Mal Yin MD [address] [place] [address] [id number] 03/26/2024 Mal Yin Visual loss H54.7 an d Other headache syndrome G44.89 ASSESSMENTS Encounter Date Diagnosis Assessment Notes Treatment Notes Treatment Clinical Notes 12/30/2023 Annual physical exam (ICD-10 - Z00.00) labs reviewed and discussed with patient 12/30/2023 Essential hypertensi on (ICD-10 - I10) doing well on meds, will continue current regiment 03/31/2024 Temporal arteritis (ICD-10 - M31.6) the pain is severe over both of her temporal arteries. would have expected some improvemnt but she has only taken the prednisone 3 days. 03/31/2024 Jaw claudication (IC D-10 - M26.69) she still gets this at times 04/09/2024 Other headache syndr ome (ICD-10 - G44.89) is the second time she had a biopsy and they are both negative. since we have another cause of her vision loss i don't feel we should continue with the prednisone in this diabetic patieint. especially since it didn't help her headace/ 04/09/2024 Visual loss (ICD-10 - H54.7) patient verbalized understanding of instruction t discontinue Prednisone 12/12/[address] ine general physical examination (ICD-10 - Z00.00) 06/22/2024 Type 2 diabetes richy itus without complications (ICD-10 - E11.9) 07/03/2024 Type 2 diabetes, controlled, with neuropathy (ICD-10 - E11.40) doing well at present. on multiple meds followed at [facility], will continue current regiment 07/03/2024 Frequent headaches (ICD-10 - R51.9) now felt to be migraine 03/24/2024 Type 2 diabetes, controlled, with neuropathy (ICD-10 - E11.40) needs to follow up with dr lozada for her complicated diabetes 03/24/2024 Visual loss (ICD-10 - H54.7) if vision gets worse to go to er 03/19/2024 Cerebral infarction, unspecified (ICD-10 - I63.9) 03/26/2024 Other headache syndr ome (ICD-10 - G44.89) the sed rate came back at 81. at this point the risk of not treating this outweighs the benefits of treating in spite of the diabetes. i have spoken to the er doctor about sending her there to get the biopsy and he relayed that they have had a similar situation and the surgeons won't do the biopsy. have personally spoken to the surgeon about doing the biopsy as an emergency and they have sheduled ii in a week. at this point i feel there is no choice but to begin treatment as the risk of losss of vision is too high. will try to get her to a can filling and closing machine tender as an emergency to treat with the prednisone sparing drugs. 03/26/2024 Visual loss (ICD-10 - H54.7) if the vision gets worse to go to the emergency room. would normally place on steroids while she is awaiting the biopsy but her sugars would be terrible and she is getting better so unlikely pmr 12/30/2023 Type 2 diabetes, controlled, with neuropathy (ICD-10 - E11.40) feet checked at endocrine, will continue current regiment 03/31/2024 Type 2 diabetes richy itus without complications (ICD-10 - E11.9) sugars are not too bad yet and hopefully will get the can filling and closing machine tender to put her on the prednisone sparing meds 12/12/2023 Type 2 diabetes, controlled, with neuropathy (ICD-10 - E11.40) 06/22/2024 Hypercholesterolemia (ICD-10 - E78.00) 07/03/2024 Vision changes (ICD- 10 - H53.9) is going to see specialist next month 03/24/2024 Other headache syndr ome (ICD-10 - G44.89) sed rate and needs biopsy. is seeing ophthal in 2 days/ had biopsy in past was negative and would be very difficult to treat with her diabetes. 12/30/2023 Hypercholesterolemia (ICD-10 - E78.00) stable, will continue current regiment 12/12/2023 Essential hypertensi on (ICD-10 - I10) 12/30/2023 Depression screening (ICD-10 - Z13.31) negative screen 12/12/2023 Hypercholesterolemia (ICD-10 - E78.00) 12/12/2023 Vitamin D deficiency (ICD-10 - E55.9) PLAN OF TREATMENT Pending Test Test Name Order Date Electrocardiogram (EKG) 04/02/2023 MRI ANKLE LT NO CONTRAST 02/01/2022 MRI BRAIN NO CONTRAST 03/19/2024 Next Appt Details Provider Name:Mal George ier, 10/15/2024 02:00:00 PM, [address] [place] [address], [address], [phone], Provider Name:Mal alvarezr, 12/24/2024 08:00:00 AM, [address] [place] [address], [address], [phone], Provider Name:Mal George ier, 12/31/2024 02:30:00 PM, [address] [place] [address], [address], [phone], Insurance Providers Payer Name Payer Address Payer Phone Subscriber Number Group Number Insured Name Patient Relationship to Insured Coverage Start Date Coverage End Date [facility] [address] [place] [address] [id number] Delaney Dunlap Self - patient is the insured MEDICAL (GENERAL) HISTORY Medical History History ICD Code had gi bleed few years ago. had been on prednisone for temporal ateritis. was an ulcer. Endo 06/10/20 - Dr. Roy colonoscopy 2015 and was nor mal; Colonoscopy 06/10/2020 - Dr. Roy - repeat 10 yrs negative stress test 03/21 had thrombolyics for cva hgad loop recorder neg for afib after 2 years pull ups leak at night and s oil bed and needs wipes for accidents when she is out
== END 2024-10-12 12:37 | disposition home or self-care (01) ==
PROVIDERS: PCP Internal Medicine; Visit Provider Internal Medicine
DX: M16.11 Unilateral primary osteoarthritis, right hip (principal)
CPT/HCPCS: 20611

== ENCOUNTER → 2024-10-12 11:51 | Outpatient (BNVA) | payer OTHER, SELFPAY | PROVIDERS: PCP Internal Medicine; Visit Provider Internal Medicine | DX: M16.11 Unilateral primary osteoarthritis, right hip (principal) | CPT/HCPCS: 20611 ==

== ENCOUNTER 2024-10-30 13:21 | Outpatient (REF) | payer OTHER, SELFPAY ==
[2024-10-30 15:14] LABS: B Type Natriuretic Peptide < 10 pg/mL (<100)
[2024-10-30 15:52] LABS: Microalbum/Creatinine Ratio Ur 15.1 ug/mg cr (<30)
[2024-10-30 16:25] LABS: Anion Gap 11 (12-20); Blood Urea Nitrogen 19 mg/dL (9-16); Calcium 9.6 mg/dL (8.4-10.2); Carbon Dioxide 26 mmol/L (22-29); Chloride 104 mmol/L (96-108); Estimated Glomerular Filt Rate > 60; Glucose Random 147 mg/dL (60-115); Potassium 3.9 mmol/L (3.3-5.1); Sodium 137 mmol/L (135-145)
== END 2024-10-30 13:22 | disposition home or self-care (01) ==
LOC: HO.LAB 13:21
PROVIDERS: PCP Internal Medicine; Visit Provider Physician Assistant
DX: E11.42 Type 2 diabetes mellitus with diabetic polyneuropathy (principal); Z79.4 Long term (current) use of insulin; I10 Essential (primary) hypertension; E66.9 Obesity, unspecified; E78.5 Hyperlipidemia, unspecified
CPT/HCPCS: 36415; 80048; 82043; 82570; 82947; 83880; 99212

== ENCOUNTER 2024-10-30 13:21 | Outpatient (AMB) | payer OTHER, SELFPAY ==
--- NOTE | 2024-10-30 13:24 | A.OFFVIS_ITS ---
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 Zipper Most recent HbA1c: 7.9%, 09/11/2024 Random Glucose- 164 mg/dL, Today Billing Machine Operator Required: No Accompanied by: Self / Same As Patient Allergies GEL ELECTRODES Allergy (Mild, Uncoded 10/30/24 13:26) RASH Medication List - Last Reconciled 10/30/24 by Darcy Mason PA-C acetaminophen (Tylenol Extra Strength) 500 mg PO Q6H PRN alcohol swabs pad topical amlodipine 2.5 mg PO DAILY aspirin 81 mg PO DAILY atenolol 50 mg PO DAILY atorvastatin 40 mg PO DAILY@1700 blood sugar diagnostic (FreeStyle Lite Strips) DIRECTED 4 TIMES A DAY [id number] 50-300-40 mg (Fioricet) 1 cap PO Q8H PRN cholecalciferol (vitamin D3) 50 mcg PO DAILY empagliflozin (Jardiance) 10 mg PO QAM ferrous sulfate 325 mg PO DAILY flash glucose scanning reader (FreeStyle Marty 2 [place]) As directed flash glucose sensor (FreeStyle Marty 2 Sensor kit) DIRECTED CHANGE EVERY 14 DAYS gabapentin 300 mg PO BID glucagon (Gvoke HypoPen 2-Pack) 1 mg (0.2 mL) subcut ONCE insulin glargine (Lantus Solostar U-100 Insulin) 50 units (0.5 mL) subcut BEDTIME insulin lispro (Admelog SoloStar U-100 Insulin lispro) 15 u for small meals, 15 u for large, + 2 units for bg>200, + 3 units for BG >250, + 4 units bg >300mg/dl. Of note..for very light meal use only 6 units. subcut 3 times a day; 30 days lisinopril 40 mg PO DAILY metformin 500 mg PO BID 90 days pantoprazole (Protonix) 40 mg PO DAILY pen needle, diabetic As directed polyethylene glycol 3350 (Miralax) 17 grams PO DAILY semaglutide (Ozempic) 2 mg (0.75 mL) subcut QWEEK sucralfate 1 g PO TID sumatriptan succinate mg PO HPI HPI T2DM: Details: Patient is a 63 yo female with DM type 2 diagnosed 2009, who presents for visit for follow up management of diabetes . She last saw Dr. Wray in March. Past medical history: HTN, HLD. fibromyalgia, ostearthritis, DARIEL, neuropathy Diabetes medications: Ozempic 2 mg Qwkly, Lantus 50 units, Humalog 6 units for very light meal such as salad and meat. 12 units for small meals and 14 units for large meals, with a correction of plus 2 units for blood sugars over 200, +3 units for blood sugars over 250 and plus 5 units for blood sugars over 300, metformin 500 mg twice a day and jardiance 10 mg. She states that her blood sugars have been a little bit elevated more than the baseline because it was the holidays and she had many dietary indiscretions. She states that she also had a cortisone injection in that caused her blood sugars to go up. She does not want to make many adjustments to her regimen as she feels that she will be better starting in the new year. -she is off of RegainGo due to insurance reasons -she does not like taking higher doses of metformin it causes stomach upset. Blood glucose monitoring: Marty reader review shows glucose is in target range 70% of the time with 30% hyperglycemia and 0% hypoglycemia. avg glucose 163. GMI 7.2% Hypoglycemia: happens daily after dinner Symptoms of shakiness and sweatiness. 4 oz of juice or 2 tb sugar or glucose tabs. Hyperglycemia: + urinary frequency, + nocturia (2x) , denies polydypsia She is on an PRIYA-inhibitor and statin CV: Bp today is 132/784. She is on atenolol 50 mg daily, amlodipine 2.5 mg daily and lisinopril 40 mg. Compliant with atorvastatin 40 mg GI:At baseline has constipation and states that recently with taking tramadol and her medications it feels like the constipation is worse. She does have an appointment scheduled with GI but not until November. [facility] Medical History Arthritis Anemia GI bleed Temporal headache Urinary incontinence Chronic constipation Fibromyalgia Primary osteoarthritis of knees, bilateral NAFLD (nonalcoholic fatty liver disease) Tubular adenoma of colon Essential hypertension Neuropathy Osteoarthritis DARIEL on CPAP Upper GI bleed Hepatomegaly History of alcohol abuse Stroke Depression Anxiety Hyperlipidemia LDL goal <70 Obesity with body mass index of 30.0-39.9 Type 2 diabetes mellitus with diabetic polyneuropathy Surgical History History of temporal artery biopsy Hx of esophagogastroduodenoscopy Hx of colonoscopy Family History Father Diabetes Mother Hypertension Daughter Breast cancer Ovarian cancer Social History Household Members: Family Household Members Other:: adult child and grandchild Are you a primary career law clerk to a significant other at home: No Do you presently have visiting nurse or other home services: No Alcohol intake: former Patient Tobacco Use Status: Former Tobacco user Years Smoked: quit 10 years ago Current occupational status: disabled Current occupation: rt handed Physical Exam Vital Signs: Last Vital Signs Pulse 89 10/30/24 13:31 BP 132/78 10/30/24 13:31 BMI result Body Mass Index 29.9 Const Orientation/consciousness: patient oriented x3 HEENT Ears: hearing grossly normal bilaterally Neck Thyroid: Thyroid normal Lymphatic: no lymphadenopathy noted Resp Auscultation: clear to auscultation bilaterally Cardio Rate: regular rate Rhythm: regular rhythm Heart sounds: S1 normal heart sound present and S2 normal heart sound present Skin General skin exam: no rashes or lesions noted Neuro General: patient oriented x3, gait normal and no focal motor deficits Assessment & Plan Assessment & Plan (1) Type 2 diabetes mellitus with diabetic polyneuropathy: Code(s): E11.42 - Type 2 diabetes mellitus with diabetic polyneuropathy Category: Medical Qualifiers: Diabetes mellitus senior care insulin use: with senior care use Qualified Code(s): E11.42 - Type 2 diabetes mellitus with diabetic polyneuropathy; Z79.4 - intermediate card tender (current) use of insulin Plan: She was supposed to get labs prior to our appointment forgot so she is going to go do the blood work today. I will increase Jardiance. We will continue the insulin dosing as directed, continue the increased dose of the Ozempic at 2 mg weekly. Tolerating well. Continue with the metformin 500 mg twice a day. Short term follow up in a few months. Sooner if needed. Patient understands and agrees with this plan. (2) Essential hypertension: Code(s): I10 - Essential (primary) hypertension Category: Medical Plan: WNL. Continue current regimen (3) Obesity with body mass index of 30.0-39.9: Code(s): E66.9 - Obesity, unspecified Category: Medical Plan: Has lost a couple lb. Working on healthier food choices. Encouraged her to continue with this. Medications: New empagliflozin (Jardiance) 25 mg PO QAM 90 tabs 2RF docusate sodium (Colace) 100 mg PO BID 180 caps 0RF Refilled flash glucose sensor (FreeStyle Marty 2 Sensor kit) DIRECTED CHANGE EVERY 14 DAYS 2 kits 6RF Discontinued empagliflozin (Jardiance) Discontinued Reason: Doctor's Order 10 mg PO QAM 90 tabs 3RF polyethylene glycol 3350 (Miralax) Discontinued Reason: Doctor's Order 17 grams PO DAILY 510 grams 1RF Coding Level of Care Code Est Pt Level 4 (60864) Complex EM visit Add On G2211 Diagnoses Type 2 diabetes mellitus with diabetic polyneuropathy, with long-term current use of insulin E11.42; Z79.4 Diabetes mellitus senior care insulin use: with senior care use Essential hypertension I10 Obesity with body mass index of 30.0-39.9 E66.9
--- OUTSIDE RECORDS SUMMARY | 2024-10-30 13:24 | XMS_ITS ---
Author Organization Mal Yin MD Address [address] [place], [place] [id number] Care Team Providers Care Fish Bailer Name Role Phone Mal Yin Primary Care Provider [phone] ALLERGIES No Known Allergies REASON FOR VISIT DISCUSS NEED FOR HOSPITAL BED, BS is 279 and her A1C was 7 Dr. Wray's office MEDICATIONS Medication SIG (Take, Route, Frequency, Duration) Notes Start Date End Date Status Spironolactone-HCTZ 25-25 MG TAKE 1 TABLET BY MOUTH EVERY DAY for 90 Active Lidocaine HCl 4 % as directed External ly at night for 30 days 01/10/2021 Not-Taking Diprolene AF 0.05 % 1 application to affected area Externally Once a day 11/25/2018 Not-Taking Ketoconazole 2 % Externally No t-Taking Mapap 500 MG 2 capsules as needed Orally every 6 hrs Not-Taking Ferrous Sulfate 325 (65 Fe) MG TAKE 1 TABLET BY MOUTH EVERY DAY for 90 Active Sucralfate 1 GM TAKE 1 TABLET BY MANDI TH 3 TIMES A DAY ON AN EMPTY STOMACH FOR 30 DAYS for 30 Active traMADol HCl 50 MG 1 tablet as needed Orally Once a day Active Aspirin Low Dose 81 MG TAKE 1 TABLET BY MOUTH EVERY DAY for 90 Active Atenolol 50 MG TAKE 1 TABLET BY MANDI TH EVERY DAY for 90 Active Ozempic (0.25 or 0.5 MG/DOSE) 2 MG/3ML 4mg/3ml 0.75 once a week Active GlucaGen HypoKit 1 MG as directed Inject ion as needed Active Lantus SoloStar 100 UNIT/ML 50 units Subcutaneous once a day Active Admelog SoloStar 100 UNIT/ML as directed Subcutaneous -15 18 units before meals three times per day total 75 units per day Active Fioricet 50-300-40 MG 1 capsule as neede d Orally every 4 hrs Active Atorvastatin Calcium 40 MG 1 tablet Orally Once a day Active BD Pen Needle Kelsey 2nd Gen 32G X 4 MM USE DIRECTED 4 TIMES A DAY for 30 Active metFORMIN HCl 500 MG 2 tablet with meals Orally Twice a day Active Alcohol Pads 70 % as directed on skin 4 times per day for 90 days 08/26/2018 Active Lisinopril 40 MG TAKE 1 TABLET BY [facility] EVERY DAY for 90 Active Omeprazole 40 MG 1 capsule 30 minutes before morning meal Orally Once a day 04/11/2020 Active FreeStyle Lite Test - USE DIRECTED TO TEST BLOOD SUGAR 3 TIMES A DAY BEFORE MEALS for 30 Active Freestyle Test Strips to test blood suga r invitro three times day before meals for 30 days Active Triamcinolone Acetonide 0.1 % APPLY DAILY TO SKIN EVERY DAY FOR 14 DAYS for 60 Active D3 50 MCG (1999 UT) TAKE 1 TABLET BY [facility] EVERY DAY for 90 Active Vitamin C 250 MG 1 tablet Orally Once a day Active TRUEplus Lancets 28G - 1 test 3 times pe r day 3 times for 30 days Active DULoxetine HCl 30 MG 1 capsule Orally Tw ice a day for 30 days Active PenTips 31G X 5 MM 1 sub q 4 times per day for 30 days Active tiZANidine HCl 2 MG 1 tablet as needed Orally Three times a day Active Gabapentin 300 MG 1 capsule Orally Twi ce a day Active SUMAtriptan Succinate 50 MG 1 tablet at least 2 hours between doses as needed Orally Twice a day Active PROBLEMS Problem Type ICD Code Onset Dates Problem Status W/U Status Risk SNOMED Code Notes Problem Primary osteoarthritis , right shoulder (M19.011) Active confirmed 8466086355 Problem Primary osteoarthritis , left shoulder (M19.012) Active confirmed [id number] Problem Arthritis of right hip (M16.11) Active confirmed 31472508 VITAL SIGNS BMI 35.35 kg/m2 10/15/2024 Blood pressure systolic 128 mm Hg 10/15/20 24 Blood pressure diastolic 60 mm Hg 024 Height 60 in 10/15/2024 Weight 181 lbs 10/15/2024 weight is up 7 pounds since 07-03-24 Encounters Encounter Location Date Provider Diagnosis Mal Yin MD [address] [place] [address] [address] [place], [place] [phone] 10/15/2024 Mal Yin Type 2 diabetes, controlled, with neuropathy E11.40 ; Primary osteoarthritis, right shoulder M19.011 ; Primary osteoarthritis, left shoulder M19.012 and Arthritis of right hip M16.11 ASSESSMENTS Encounter Date Diagnosis Assessment Notes Treatment Notes Treatment Clinical Notes 10/15/2024 Type 2 diabetes, controlled, with neuropathy (ICD-10 - E11.40) is running a little high with all the cortisone shots 10/15/2024 Primary osteoarthritis, right shoulder (ICD-10 - M19.011) have given her an order for a hospital bed as she can't get out of bed due to her arthritis 10/15/2024 Primary osteoarthritis, left shoulder (ICD-10 - M19.012) 10/15/2024 Arthritis of right hip (ICD-10 - M16.11) has trouble getting out of bed due to her hip 10/15/2024 Other Total time spen t on the date of the encounter is 35 minutes including both face to face time spent and time spent reviewing documentation, and counseling the patient. PLAN OF TREATMENT Treatment Notes Assessment Notes Type 2 diabetes, controlled, with neuropathy is running a little high with all the cortisone shots Primary osteoarthritis, right shoulder h ave given her an order for a hospital bed as she can't get out of bed due to her arthritis Arthritis of right hip has trouble getti ng out of bed due to her hip Other Total time spent on the date of the encounter is 35 minutes including both face to face time spent and time spent reviewing documentation, and counseling the patient. Next Appt Details Provider Name:Mal quispe, 12/24/2024 08:00:00 AM, [address] [place] [address], [address], [place], [phone], Provider Name:Mal quispe, 12/31/2024 02:30:00 PM, [address] [place] [address], Suite [facility], [place], [place], [phone], Progress Notes * Examination Category Sub-Category Detail Notes General Examination GENERAL APPEARANCE: well dev eloped, well nourished HEAD: normocephalic HEART: no murmurs, rubs, ga llops , regular rate and rhythm LUNGS: no wheezes, rales, r honchi , good air movement , clear to auscultation bilaterally SKIN: good turgor
--- OUTSIDE RECORDS SUMMARY | 2024-10-30 13:24 | XMS_ITS ---
Author Organization Mal Yin MD Address [address] [place] [phone] Care Team Providers Care Frame Catcher Name Role Phone Mal Yin Primary Care Provider REASON FOR VISIT refill MEDICATIONS Medication SIG (Take, Route, Fr equency, Duration) Notes Start Date End Date Status Sucralfate 1 GM 1 tablet on an empty stomach Orally 3 times a day for 30 day(s) 08/07/2024 Acti ve Encounters Encounter Location Date Provider Diagnosis Mal Yin MD [facility] [address] [place] [phone] 08/07/2024 Mal Yin PLAN OF TREATMENT Medication Medication Name Sig Start Date Stop Date Notes Sucralfate 1 GM 1 tablet on an empty stomach Orally 3 times a day for 30 day(s) 08/07/2024 Next Appt Details Provider Name:Mal quispe, 12/24/2024 08:00:00 AM, [address] [place] [address], [address], [phone], Provider Name:Mal quispe, 12/31/2024 02:30:00 PM, [address] [place] [address], [address], [phone],
--- OUTSIDE RECORDS SUMMARY | 2024-10-30 13:25 | XMS_ITS ---
Author Organization Mal Yin MD Address [address] [place], [place] [phone] Care Team Providers Care It Application Architect Name Role Phone Mal Yin Primary Care Provider REASON FOR VISIT ER Visit rec'd Encounters Encounter Location Date Provider Diagnosis Mal Yin MD [address] [place], [place] [phone] 07/17/2024 Mal Yin PLAN OF TREATMENT Next Appt Details Provider Name:Mal quispe, 12/24/2024 08:00:00 AM, [address] [place] [address], [address], [place], [place], [phone], Provider Name:Mal quispe, 12/31/2024 02:30:00 PM, [address] [place] [address], [address], [place], [place], [phone],
--- OUTSIDE RECORDS SUMMARY | 2024-10-30 13:25 | XMS_ITS | Patient Health Record ---
Author Organization Mal Yin MD Address [address] [place], [place] [address] Care Team Providers Care Supervisor Inspection And Testing Name Role Phone Mal Yin Primary Care Provider ALLERGIES No Known Allergies RESULTS Component Value Reference Range Notes Hemoglobin A1c Reviewed date:03/24/2024 10:53:32 AM Interpretation: Performing Lab: Notes/Report: Value Hemoglobin A1c 6.8 Hemoglobin A1c Reviewed date:07/03/2024 01:52:19 PM Interpretation: Performing Lab: Notes/Report: Value Hemoglobin A1c 7.3 Complete Blood Count Auto Di ff Reviewed date:12/14/2023 06:51:19 PM Interpretation: Performing Lab:[facility], [address] [place] [phone] Notes/Report: White Blood Count 7.1 4.8-10.8 X10*3/uL [...] NRBC Abs Auto 0.000 0.0-0.012 X10*3/uL Comprehensive [place]. Panel Fa st Reviewed date:12/14/2023 06:30:55 PM Interpretation: Performing Lab:[facility], [address] [place] [phone] Notes/Report: Sodium 143 135-145 mmol/L Potassium 3.9 3.3-5.1 mmol/L Chloride 104 96-108 mmol/L Carbon Dioxide 30 22-29 mmol/L Anion Gap 13 12-20 Blood Urea Nitrogen 16 9-16 mg/dL Creatinine 0.74 0.5-1.4 mg/dL Estimated Glomerular Filt Rate > 60 NOTE: For -[place]ill[place] individuals, multiply the result by 1.210. Chronic [...] Panel Reviewed date:12/14/2023 06:31:11 PM Interpretation: Performing Lab:[address] [address] Notes/Report: Triglycerides 176 <150 mg/dL Desirable Triglyceride: [...] Total Reviewed date:12/14/2023 06:30:41 PM Interpretation: Performing Lab:[address] [phone] Notes/Report: Vitamin D 25-OH Total 42.8 >30 [...] Random Reviewed date:12/14/2023 06:32:22 PM Interpretation: Performing Lab:[facility] [address] Notes/Report: Creatinine Urine 70.23 Microalbumin Urine 38.0 Microalbum/Creatinine Ratio Ur 54.1 <30 ug/mg cr Albumin/Creatinine Ratio Reference Ranges: Normal: < 30 ug/mg creatinine Microalbuminuria: 30 - 300 ug/mg creatinine Clinical Albuminuria: > 300 ug/mg creatinine Hemoglobin A1c Reviewed date:12/13/2023 11:35:38 AM Interpretation: Performing Lab:[address] [address] Notes/Report: Hemoglobin A1c % 7.1 <6.0 % [...] average glucose, using the formula of the X3K-Qbdzzyg Average Glucose study (ADAG), Diabetes Care, Vol.31,#8, Jun. 2007 UA ClnCatch+Micro w/rflx Cul t Reviewed date:12/14/2023 06:48:50 PM Interpretation: Performing Lab:[address] [address] Notes/Report: Urine, Clean Catch Color Urine Yellow Appearance Urine Clear PH 6.5 5.0-9.0 Glucose Urine UA >=1000 Negative mg/dL Urine Blood Negative Negative Specific [place] - Urine >= 1.030 1.005-1.025 Urine Protein Negative Neg-Trace mg/dL Urine Ketones Negative Negative mg/dL Nitrite Urine Negative Negative Leukocyte Esterase Urine Negative Negative RBC Urine 0-2 0-2 /HPF WBC Urine 6-10 0-5 /HPF Squamous Epithelial Cell Urine 3-5 0-2 /HPF Bacteria Urine 1+ None Seen Hyaline Casts Urine 0-2 0-2 /LPF Complete Blood Count Man Dif Reviewed date:12/14/2023 06:30:31 PM Interpretation: Performing Lab:[address] [address] Notes/Report: White Blood Count 7.1 4.8-10.8 X10*3/uL [...] Culture Reviewed date:12/14/2023 06:36:43 PM Interpretation: Performing Lab:[facility], [address] [place] [phone] Notes/Report: Urine Culture Report Result Urine Culture > 100,000 cfu/ml Urine Culture Mixed bacterial claude a characteristic of Urine Culture urogenital contamination. XR knee standing BI Reviewed date:12/31/2023 04:31:32 PM Interpretation: Performing Lab: Notes/Report: [address] [address] XRay Report Signed Patient: Delaney Dunlap MR#: [id number] : 1960 Acct:[id number] Age/Sex: 63 / F ADM Date: 12/30/23 Loc: HO.XRAY Attending Dr: Dev Oneill MD Ordering Physician: Dev Oneill MD Date of Service: 12/30/23 Procedure(s): XR knee standing BI Accession Number(s): [id number] cc: Mal Yin MD; Dev Oneill MD [...] in OV> 12/31/23 1432 DD/ 1259 TD/TT: Sample Grader: Glucose, Whole Blood Reviewed date:03/09/2024 12:30:37 PM Interpretation: Performing Lab:[facility], [address] [place] [phone] Notes/Report: Glucose, Whole Blood 118 60-115 mg/dL METER #: [id number] Testing performed in the [facility] , [address], [facility]. CT head/brain wo con Reviewed date:03/23/2024 11:00:21 AM Interpretation:auth pending Performing Lab: Notes/Report: [address] [address] [address] Scan Report Signed Patient: Delaney Dunlap MR#: [id number] : 1960 Acct:[id number] Age/Sex: 63 / F ADM Date: 03/18/24 Loc: HO.ED Attending Dr: Ordering Physician: Yessica Matias Date of Service: 03/18/24 Procedure(s): CT head/brain wo IV con Accession Number(s): [id number] cc: Mal Yin MD; Yessica Matias EXAMINATION: [...] in OV> 03/18/24 1433 DD/ 1319 TD/TT: Sample Grader: Erythrocyte Sedimentation Ra te Reviewed date:03/26/2024 12:40:43 PM Interpretation: Performing Lab:[facility], [address] [place] [phone] Notes/Report: Erythrocyte Sedimentation Rate 81 0-20 MM/HR Patients with polycythemia and many hemoglobin abnormalities may have depressed sed rates whereas patients with anemia may have elevated sed rates. Glucose, Whole Blood Reviewed date:04/03/2024 12:57:06 PM Interpretation: Performing Lab:[facility], [address] [place] [phone] Notes/Report: Glucose, Whole Blood 85 60-115 mg/dL METER # : [id number] Pathology Reviewed date:04/09/2024 11:34:41 AM Interpretation:see back 04-09-2024 Performing Lab:[facility], [address] [place] [phone] Notes/Report: Glucose, Whole Blood Reviewed date:06/12/2024 09:40:49 AM Interpretation: Performing Lab:[facility], [address] [place] [phone] Notes/Report: Glucose, Whole Blood 112 60-115 mg/dL METER #: [id number] Testing performed in the [facility], [facility]. Liver Panel Reviewed date:06/22/2024 12:39:00 PM Interpretation: Performing Lab:[facility], [address] [place] [phone] Notes/Report: Bilirubin Total 0.4 0.0-1.0 mg/dL Bilirubin Direct 0.1 0.0-0.5 mg/dL Aspartate Amino Transferase 17 5-31 U/L Alanine Aminotransferase 7 0-31 U/L Total Protein 7.3 6.5-8.0 g/dL Albumin Level 4.3 3.5-5.0 g/dL Alkaline Phosphatase 73 39-117 U/L Glucose Fasting Reviewed date:06/22/2024 12:38:45 PM Interpretation: Performing Lab:[facility], [address] [place] [phone] Notes/Report: Glucose Fasting 143 60-99 mg/dL A fasting glucose of 126 mg/dl or greater on more than one occasion is considered diagnostic of diabetes. Lipid Panel with Reflex Reviewed date:06/22/2024 12:39:09 PM Interpretation: Performing Lab:[facility], [address] [place] [phone] Notes/Report: Triglycerides 192 <150 mg/dL Desirable Triglyceride: [...] A1c Reviewed date:06/22/2024 10:59:44 AM Interpretation: Performing Lab:[address] [address] Notes/Report: Hemoglobin A1c % 7.3 <6.0 % [...] average glucose, using the formula of the Z1I-Razjmmd Average Glucose study (ADAG), Diabetes Care, Vol.31,#8, 2007 Creatinine GFR POC Reviewed date:07/02/2024 05:06:45 PM Interpretation: Performing Lab:[facility], [address] [place] [phone] Notes/Report: [id number] 0.84 >60 0952 HO.DIAZAAR Creatinine POC 0.8 0.5-1.4 mg/dL GFR POC > 60 Chronic Kidney Disease: Estimated GFR < 60 mL/min/1.73m2 Severe Kidney Disease: Estimated GFR < 15 mL/min/1.73m2 CT angio head neck Reviewed date:07/03/2024 09:33:15 AM Interpretation: Performing Lab: Notes/Report: [address] [address] [address] Scan Report Signed Patient: Delaney Dunlap MR#: [id number] : 1960 Acct:[id number] Age/Sex: 63 / F ADM Date: 07/02/24 Loc: HO.CT Attending Dr: Jemima Davidson MD Ordering Physician: Jemima Davidson MD Date of Service: 07/02/24 Procedure(s): CT angio head neck Accession Number(s): [id number] cc: Mal Yin MD; Jemima Davidson MD EXAMINATION: CT ANGIOGRAM HEAD CT ANGIOGRAM NECK CLINICAL INFORMATION: Cerebral infarction. COMPARISON: CT head from 03/18/2024. TECHNIQUE: Initial noncontrast drag out man imaging of the head and neck was performed. Noncontrast head CT was also performed. Test bolus sequences followed by intravenous administration 70 mL of Omnipaque 350. Helical imaging was performed in the axial plane from the aortic arch to the skull vertex. Delayed postcontrast imaging of the head was also performed. The data was processed at the manufacturing engineering technologist's workstation for generation of MIP sequences. [...] P1 segment is diminutive. origin of the OUTPATIENT PSYCHIATRIST with robust opacification of the posterior communicating artery. Normal opacification of the distal OUTPATIENT PSYCHIATRIST segments. Left Posterior Cerebral Artery: Normal P1 segment. Normal opacification of the distal OUTPATIENT PSYCHIATRIST segments. Normal opacification of the superior sagittal, [...] 07/02/24 1531 DD/ 0956 TD/TT: 07/02/24 1015 Sample Grader: BRIGITTE Glucose, finger stick Reviewed date:07/03/2024 01:45:46 PM Interpretation: Performing Lab: Notes/Report: Value 170 Glucose, Whole Blood Reviewed date:09/11/2024 12:34:22 PM Interpretation: Performing Lab:[facility], [address] [place] [phone] Notes/Report: Glucose, Whole Blood 154 60-115 mg/dL METER #: [id number] Testing performed in the [facility] , [address], [facility]. REASON FOR REFERRAL Reason Other headache syndr [...] 1 Diverticulosis (K57. 90) Referral Organization Mal iYn MD Referring Provider First Name Mal Referring [...] Duration) Notes Start Date End Date Status BD Pen Needle Kelsey 2nd Gen 32G X 4 MM USE DIRECTED 4 TIMES A DAY for 30 Active metFORMIN HCl 500 MG 2 tablet with meals Orally Twice a day Active Ozempic (0.25 or 0.5 [...] capsule Orally Twi ce a day Active traMADol HCl 50 MG 1 tablet as needed Orally Once a day Active SUMAtriptan Succinate 50 MG 1 tablet at least 2 hours between doses as needed Orally Twice a day Active Aspirin Low Dose 81 MG TAKE 1 TABLET BY MOUTH EVERY DAY for 90 Active tiZANidine HCl 2 MG 1 tablet as needed Orally Three times a day Active Atenolol 50 MG TAKE 1 TABLET BY MANDI TH EVERY DAY for 90 Active Atorvastatin Calcium 40 MG 1 tablet Orally Once a day Active Ferrous Sulfate 325 (65 Fe) MG TAKE 1 TABLET BY MOUTH EVERY DAY for 90 Active Sucralfate 1 GM TAKE 1 TABLET BY MANDI TH 3 TIMES A DAY ON AN EMPTY STOMACH FOR 30 DAYS for 30 Active DULoxetine HCl 30 MG 1 capsule Orally Tw ice a day for 30 days Active Spironolactone-HCTZ 25-25 MG TAKE 1 TABLET BY MOUTH EVERY DAY for 90 Active PenTips 31G X 5 MM 1 sub q 4 times per day for 30 days Active Lidocaine HCl 4 % as directed External ly at night for 30 days 01/10/2021 Not-Taking Omeprazole 40 MG 1 capsule 30 minutes before morning meal Orally Once a day 04/11/2020 Active Diprolene AF 0.05 % 1 application to affected area Externally Once a day 11/25/2018 Not-Taking FreeStyle Lite Test - USE DIRECTED TO TEST BLOOD SUGAR 3 TIMES A DAY BEFORE MEALS for 30 Active Ketoconazole 2 % Externally No t-Taking Freestyle Test Strips to test blood suga r invitro three times day before meals for 30 days Active Mapap 500 MG 2 capsules as needed Orally every 6 hrs Not-Taking Triamcinolone Acetonide 0.1 % APPLY DAILY TO SKIN EVERY DAY FOR 14 DAYS for 60 Active D3 50 MCG (2000 UT) TAKE 1 TABLET BY MANDI TH EVERY DAY for 90 Active Alcohol Pads 70 % as directed on skin 4 times per day for 90 days 08/26/2018 Active Lisinopril 40 MG TAKE 1 TABLET BY MANDI TH EVERY DAY for 90 Active Vitamin C 250 MG 1 tablet Orally Once a day Active TRUEplus Lancets 28G - 1 test 3 times pe r day 3 times for 30 days Active IMMUNIZATIONS Vaccine Route Administration Date Status [...] diabetes mellitus without complications (E11.9) Active confirmed 754320074 Problem Sciatica (M54.30) Active confirmed Scia haley (06988386) Problem Thrombocytopenia (D69.6) Active confirmed 789376232 Problem Vitamin D deficiency (E55.9) Active confirmed 10259537 Problem Other headache syndrome (G44.89) Active confirmed 425089247 Problem Cerebral infarction, unspecified (I63.9) Active confirmed Cerebral infarction (818296039) Problem Primary osteoarthritis, right shoulder (M19.011) Active confirmed 1369436598 Problem Primary osteoarthritis, left shoulder (M19.012) Active confirmed [id number] Problem Fibromyalgia (M79.7) Active confirmed 2 48723801 Problem Lumbar disc disease (M51.9) Active confirmed 839785804 Problem Essential hypertensi on (I10) Active confirmed 09768960 Problem Type 2 diabetes, controlled, with neuropathy (E11.40) Active confirmed 08753944 Problem Temporal arteritis (M31.6) Active confirmed 262088533 Problem Hypoglycemia (E16.2) Active confirmed 3 72652957 Problem History of CVA (cerebrovascular accident) (Z86.73) Active confirmed 508179995 Problem Intrinsic eczema (L20.84) Active confirmed 38231890 Problem Peptic ulcer (K27.9) Active confirmed 1 5269287 Problem Fatty liver (K76.0) Active confirmed 19 0478822 Problem Hypercholesterolemia (E78.00) Active confirmed 86218251 Problem PMR (polymyalgia rheumatica) (M35.3) Active confirmed Polymyal shayy rheumatica (21695103) Problem Incontinence of fece s, unspecified fecal incontinence type (R15.9) Active confirmed 90953493 Problem Arthritis of right h ip (M16.11) Active confirmed 65437724 Problem Diverticulosis (K57.90) Active confirmed Diverticular disease of colon (016593227) Problem Incontinence in fema le (R32) Active confirmed 55751223 Problem Carpal tunnel syndrome, unspecified laterality (G56.00) Active confirmed 46896853 Problem Visual loss (H54.7) Active confirmed 39 8790793 VITAL SIGNS Blood pressure diastolic 60 mm Hg 10/15/2024 kirti ght is up 7 pounds since 07-03-24 Height 60 in 10/15/2024 weight is up 7 pounds since 07-03-24 Blood pressure systolic 128 mm Hg 10/15/2024 weig ht is up 7 pounds since 07-03-24 Weight 181 lbs 10/15/2024 weight is up 7 pounds since 07-03-24 BMI 35.35 kg/m2 10/15/2024 weight is up 7 pounds since 07-03-24 Encounters Encounter Location Date Provider Diagnosis Mal Yin MD [address] [place] [id number] 12/30/2023 Mal Yin Essential hypertensi on I10 ; Annual physical exam Z00.00 ; Type 2 diabetes, controlled, with neuropathy E11.40 ; Hypercholesterolemia E78.00 and Depression screening Z13.31 Mal Yin MD [address] [place] [id number] 03/31/2024 Mal Yin Temporal arteritis M 31.6 ; Jaw claudication M26.69 and Type 2 diabetes mellitus without complications E11.9 Mal Yin MD [address] [id number] 04/09/2024 Mal Yin Visual loss H54.7 an d Other headache syndrome G44.89 Mal Yin MD [address] [id number] 12/12/2023 Mal Yin Blood tests for rout ine general physical examination Z00.00 ; Type 2 diabetes, controlled, with neuropathy E11.40 ; Essential hypertension I10 ; Hypercholesterolemia E78.00 and Vitamin D deficiency E55.9 Mal Yin MD [address] [id number] 06/22/2024 Mal Yin Type 2 diabetes richy itus without complications E11.9 and Hypercholesterolemia E78.00 Mal Yin MD [address] [id number] 07/03/2024 Mal Yin Type 2 diabetes, controlled, with neuropathy E11.40 ; Frequent headaches R51.9 and Vision changes H53.9 Mal Yin MD [address] [place] [id number] 03/24/2024 Mal Yin Type 2 diabetes, controlled, with neuropathy E11.40 ; Visual loss H54.7 and Other headache syndrome G44.89 Mal Yin MD [address] [id number] 10/15/2024 Mal Yin Type 2 diabetes, controlled, with neuropathy E11.40 ; Primary osteoarthritis, right shoulder M19.011 ; Primary osteoarthritis, left shoulder M19.012 and Arthritis of right hip M16.11 Mal Yin MD [address] [place] [id number] 03/10/2024 Mal Yin MD [address] [place] [id number] 03/19/2024 Mal Yin Cerebral infarction, unspecified I63.9 Mal Yin MD [address] [place] [id number] 03/20/2024 Mal Yin MD [address] [place] [id number] 03/20/2024 Mal Yin MD [address] [place] [id number] 03/23/2024 Mal Yin MD [address] [place] [id number] 03/26/2024 Mal Yin MD [address] [place] [id number] 03/26/2024 Mal Yin MD [address] [place] [id number] 07/17/2024 Mal Yin MD [address] [place] [id number] 08/07/2024 Mal Yin MD [address] [place] [id number] 03/26/2024 Mal Yin Visual loss H54.7 an [...] at present. on multiple meds followed at [facility], will continue current regiment 07/03/2024 Frequent headaches (ICD-10 - R51.9) now felt to be migraine 03/24/2024 Type 2 diabetes, controlled, with neuropathy (ICD-10 - E11.40) needs to follow up with dr lozada for her complicated diabetes 03/24/2024 Visual loss (ICD-10 - H54.7) if vision gets worse to go to er 10/15/2024 Primary osteoarthrit is, right shoulder (ICD-10 - M19.011) have given her an order for a hospital bed as she can't get out of bed due to her arthritis 10/15/2024 Type 2 diabetes, controlled, with neuropathy (ICD-10 - E11.40) is running a little high with all the cortisone shots 03/19/2024 Cerebral infarction, unspecified (ICD-10 - I63.9) [...] will try to get her to a billing analyst as an emergency to treat with the [...] bad yet and hopefully will get the billing analyst to put her on the prednisone sparing [...] very difficult to treat with her diabetes. 10/15/2024 Primary osteoarthrit is, left shoulder (ICD-10 - M19.012) 12/30/2023 Hypercholesterolemia (ICD-10 - E78.00) stable, will continue current regiment 12/12/2023 Essential hypertensi on (ICD-10 - I10) 10/15/2024 Arthritis of right h ip (ICD-10 - M16.11) has trouble getting out of bed due to her hip 12/30/2023 Depression screening (ICD-10 - Z13.31) negative screen 12/12/2023 Hypercholesterolemia (ICD-10 - E78.00) 12/12/2023 Vitamin D deficiency (ICD-10 - E55.9) 10/15/2024 Other Total time spen t on the date of the encounter is 35 minutes including both face to face time spent and time spent reviewing documentation, and counseling the patient. PLAN OF TREATMENT Pending Test Test Name Order Date Electrocardiogram (EKG) 04/02/2023 MRI ANKLE LT NO CONTRAST 02/01/2022 MRI BRAIN NO CONTRAST 03/19/2024 Next Appt Details Provider Name:Mal George ier, 12/24/2024 08:00:00 AM, [address], [address], [place], [place], [id number], Provider Name:Mal George ier, 12/31/2024 02:30:00 PM, [address], [address], [place], [place], [id number], Insurance Providers Payer Name Payer Address Payer Phone Subscriber Number Group Number Insured Name Patient Relationship to Insured Coverage Start Date Coverage End Date [facility] [address] [place] [address] [id number] Delaney Dunlap Self - patient is the [...]
[2024-10-30 13:31] VITALS: BP 132/78; PULSE 89; BMI 29.9
[2024-10-30 13:39] LABS: Glucose, Whole Blood 164 mg/dL (60-115)
== END 2024-10-30 13:54 | disposition home or self-care (01) ==
PROVIDERS: PCP Internal Medicine; Visit Provider Physician Assistant
DX: E11.42 Type 2 diabetes mellitus with diabetic polyneuropathy (principal); Z79.4 Long term (current) use of insulin; I10 Essential (primary) hypertension; E66.9 Obesity, unspecified

== ENCOUNTER 2024-12-04 12:03 | Outpatient (AMB) | payer OTHER, SELFPAY ==
--- NOTE | 2024-12-04 12:05 | A.OFFVIS_ITS ---
Vital Signs 12/04/24 12:06 Height 5 ft 4 in Weight 176 lb BMI 30.2 BP 148/62 H Blood Pressure Location Lt brachial Position Sitting Respiration 16 Pulse 88 Pulse Source Pulse Oximeter Pulse Oximetry (%) 97 Oxygen Delivery Method Room Air Intake Visit Reasons: [place] shoulder inj/[place] from 11/20-11/25 Professor Of History Required: No Automotive Heavy Mechanic: Automotive Heavy Mechanic Present Accompanied by: Tan Mendez Allergies GEL ELECTRODES Allergy (Mild, Uncoded 12/04/24 12:11) RASH Medication List - Last Reconciled 12/04/24 by Monica Brock LPN acetaminophen (Tylenol Extra Strength) 500 mg PO Q6H PRN alcohol swabs pad topical amlodipine 2.5 mg PO DAILY aspirin 81 mg PO DAILY atenolol 50 mg PO DAILY atorvastatin 40 mg PO DAILY@1700 blood sugar diagnostic (FreeStyle Lite Strips) DIRECTED 4 TIMES A DAY fghmtwbynr-vxdiqhakeqhij-rtnx 50-300-40 mg (Fioricet) 1 cap PO Q8H PRN cholecalciferol (vitamin D3) 50 mcg PO DAILY docusate sodium (Colace) 100 mg PO BID empagliflozin (Jardiance) 25 mg PO QAM ferrous sulfate 325 mg PO DAILY flash glucose scanning reader (FreeStyle Marty 2 [place]) As directed flash glucose sensor (FreeStyle Marty 2 Sensor kit) DIRECTED CHANGE EVERY 14 DAYS gabapentin 300 mg PO BID glucagon (Gvoke HypoPen 2-Pack) 1 mg (0.2 mL) subcut ONCE insulin glargine (Lantus Solostar U-100 Insulin) 50 units (0.5 mL) subcut BEDTIME insulin lispro (Admelog SoloStar U-100 Insulin lispro) 15 u for small meals, 15 u for large, + 2 units for bg>200, + 3 units for BG >250, + 4 units bg >300mg/dl. Of note..for very light meal use only 6 units. subcut 3 times a day; 30 days lisinopril 40 mg PO DAILY metformin 500 mg PO BID 90 days pantoprazole (Protonix) 40 mg PO DAILY pen needle, diabetic As directed semaglutide (Ozempic) 2 mg (0.75 mL) subcut QWEEK sucralfate 1 g PO TID sumatriptan succinate mg PO HPI HPI [place] shoulder inj/[place] from 11/20-11/25: Details: Patient presents for scheduled procedure. Denies any recent cough, cold, inf ection, fever or other significant changes in medical history since last office visit. [facility] Medical History Arthritis Anemia GI bleed Temporal headache Urinary incontinence Chronic constipation Fibromyalgia Primary osteoarthritis of knees, bilateral NAFLD (nonalcoholic fatty liver disease) Tubular adenoma of colon Essential hypertension Neuropathy Osteoarthritis DARIEL on CPAP Upper GI bleed Hepatomegaly History of alcohol abuse Stroke Depression Anxiety Hyperlipidemia LDL goal <70 Obesity with body mass index of 30.0-39.9 Type 2 diabetes mellitus with diabetic polyneuropathy Surgical History History of temporal artery biopsy Hx of esophagogastroduodenoscopy Hx of colonoscopy Family History Father Diabetes Mother Hypertension Daughter Breast cancer Ovarian cancer Social History Household Members: Family Household Members Other:: adult child and grandchild Are you a primary day care home mother to a significant other at home: No Do you presently have visiting nurse or other home services: No Alcohol intake: former Patient Tobacco Use Status: Former Tobacco user Years Smoked: quit 10 years ago Current occupational status: disabled Current occupation: rt handed Physical Exam Vital Signs: Last Vital Signs Pulse 88 12/04/24 12:06 Resp 16 12/04/24 12:06 BP 148/62 H 12/04/24 12:06 Pulse Ox 97 12/04/24 12:06 Oxygen Delivery Method Room Air 12/04/24 12:06 BMI result Body Mass Index 30.2 Office Procedures AMB Joint Injection/Aspiration Joint Injection/Aspiration Primary Site: left shoulder Secondary Site: right shoulder Prep: site was prepped using sterile technique Injected: 20 mg of, Kenalog, with 3 mL of (ropivacaine 0.5%) and in the subcromial space Approach Used: posterolateral (US Guided; images saved) Procedure: The patient tolerated the procedure well Coding 47603 - Glenohumeral/Tronchanteric Bursa/Intraarticular Procedure code (CPT) selection complete Assessment & Plan Assessment & Plan (1) Bilateral shoulder pain: Code(s): M25.511 - Pain in right shoulder; M25.512 - Pain in left shoulder Category: Medical Plan Patient is status post bilateral shoulder injections. Patient tolerated procedure well and was discharged home in stable condition with discharge instructions. All questions were answered. We will follow-up via telephone or in clinic to assess response to therapy. A follow-up appointment was made during today's visit. Coding Level of Care Code Procedure Only Diagnoses Bilateral shoulder pain M25.511; M25.512 CPT Codes Coding - Joint 7: 48061 - Glenohumeral/Tronchanteric Bursa/Intraarticular ([id number])
[2024-12-04 12:06] VITALS: BP 148/62; PULSE 88; RESP 16; O2SAT 97; BMI 30.2
--- OUTSIDE RECORDS SUMMARY | 2024-12-04 12:39 | XMS_ITS | Clinical Summary ---
Author Organization [facility] Facility Address [address] [address] Care Team Providers Care Java Development Team Lead Name Role Phone Mal Yin MD Primary Care Provider Allergies No known active allergies Medications triamcinolone (KENALOG) 0.1 % cream APPLY DAILY TO SKIN EVERY DAY FOR 14 DAYS 2 Active tiZANidine (ZANAFLEX) 2 MG tablet Take 1 tablet by mouth in the morning and 1 tablet in the evening and 1 tablet before bedtime. Active spironolactone -hydroCHLOROth iazide (ALDACTAZIDE) 25-25 MG per tablet Take 1 tablet by mouth 1 (one) time each day 6 Active pregabalin (LYRICA) 100 MG capsule Take 100 mg by mouth 2 Active omeprazole (PriLOSEC) [address] capsule Take by mouth 1 (one) time each day 2 Active metFORMIN (GLUCOPHAGE) 1000 MG tablet Take 1 tablet by mouth in the morning and 1 tablet in the evening. Active lisinopril 40 MG tablet Take 1 tablet by mouth 1 (one) time each day Active insulin glargine (Lantus SoloStar) 100 UNIT/ML injection Inject 68 Units under the skin 1 (one) time each day Active ferrous sulfate 325 (65 Fe) MG tablet Take 1 tablet by mouth 1 (one) time each day 2 Active hydroCHLOROthi azide (MICROZIDE) 12.5 MG capsule Take by mouth 1 (one) time each day 2 Active Tresiba FlexTouch 200 UNIT/ML injection INJECT 68 UNITS SUBCUTANEOUSLY EVERY DAY 2 Active Trulicity 4.5 MG/0.5ML solution pen-injector INJECT 4.5 MG (0.5 ML) SUBCUTANEOUSLY EVERY WEEK 2 Active docusate sodium (COLACE) 100 MG capsule Take 200 mg by mouth every night 2 Active D3 50 MCG (1999 UT) tablet Take 2,000 Units by mouth 1 (one) time each day 2 Active atorvastatin (LIPITOR) 40 MG tablet Take 1 tablet by mouth at bed time Active atenolol (TENORMIN) 50 MG tablet Take 50 mg by mouth 1 (one) time each day 2 Active Aspirin Low Dose 81 MG EC tablet Take 81 mg by mouth 1 (one) time each day 2 Active insulin lispro (HumaLOG) 100 UNIT/ML injection Inject under the skin 3 (three) times a day before meals Active Invokana 100 MG tablet TAKE 1 TABLET BY MOUTH EVERY DAY 90 tablet 2 2 Active amLODIPine (NORVASC) 2.5 MG tablet TAKE 1 TABLET BY MOUTH 1 TIME EACH DAY. 90 tablet 3 3 Active Active Problems Problem Noted Date Diagnosed Date Chronic kidney disease, stage 2 (mild) 3 Ankle pain 08/30/2022 Essential hypertension 02/06/2022 Type 2 diabetes mellitus without complication Proteinuria 02/06/2022 Type 2 diabetes mellitus wit h diabetic chronic kidney disease 02/06/2022 Family History Medical History Relation Comments Cancer Child Diabetes Father Gout Father Hypertension Mother Relation Status Comments Child Father Mother Alive Social History Tobacco Use Types Packs/Day Years Used Date Smoking Tobacco: Former Tobacco Cessation:Counseling Given: Not Answered Alcohol Use Standard Drinks/Week Comments Never 0 (1 standard drink = 0.6 oz pur e alcohol) Comments Unknown Sex and Gender Information Value Date Recorded Sex Assigned at Not on file Legal Sex Female 5:10 PM EST Gender Identity Not on file Sexual Orientation Not on file Last Filed Vital Signs Vital Sign Reading Time Taken Comments Blood Pressure 145/60 11/27/2022 1:48 PM EST Pulse 68 11/27/2022 1:48 PM EST Temperature - - Respiratory Rate - - Oxygen Saturation 98% 11/27/2022 1:48 PM EST Inhaled Oxygen Concentration - - Weight 86.9 kg (191 lb 9.6 oz) 11/27/2022 1:48 P M EST Height - - Body Mass Index - - Plan of Treatment Health Maintenance Due Date Last Done Comments Breast Cancer Screening 1960 Pneumococcal Vaccine: Pediat rics (0 to 5 Years) and At-Risk Patients (6 to 64 Years) (1 of 2 - PCV) 1966 Colorectal Cancer Screening: Annual FOBT 2009 Colorectal Cancer Screening: Colonoscopy 2009 Colorectal Cancer Screening: Sigmoidoscopy 2009 Diabetes: Hemoglobin A1C 02/06/2022 Diabetes: Ophthalmology Exam 02/06/2022 Diabetes: Pedal Pulse Checked 02/06/2022 Diabetes: Sensory Foot Exam 02/06/2022 Diabetes: Visual Foot Exam 02/06/2022 Influenza Vaccine (#1) 2024 Hepatitis B Vaccine Aged Out No longe r eligible based on patient's age to complete this topic Insurance [employer] [employer] Care Teams Java Development Team Lead Relationship Specialty Start Date End Date Mal Yin MD [address] [place] [address] [address] [place], [place] PCP - General Internal Medicine 12/20/21
== END 2024-12-04 12:53 | disposition home or self-care (01) ==
PROVIDERS: PCP Internal Medicine; Visit Provider Internal Medicine
DX: M25.511 Pain in right shoulder (principal); M25.512 Pain in left shoulder
CPT/HCPCS: 20610

== ENCOUNTER → 2024-12-04 12:03 | Outpatient (BNVA) | payer OTHER, SELFPAY | PROVIDERS: PCP Internal Medicine; Visit Provider Internal Medicine | DX: M25.511 Pain in right shoulder (principal); M25.512 Pain in left shoulder | CPT/HCPCS: 20610 ==

== ENCOUNTER 2024-12-28 08:00 | Outpatient (REF) | payer OTHER, SELFPAY ==
[2024-12-28 10:44] LABS: MANUAL DIFF FLAG NO
[2024-12-28 10:51] LABS: Appearance Urine Clear; Color Urine Yellow; Glucose Urine UA Negative (Negative); Leukocyte Esterase Urine Negative (Negative); Nitrite Urine Negative (Negative); PH 6.5 (5.0-9.0); Urine Blood Negative (Negative); Urine Ketones Negative (Negative); Urine Protein Trace mg/dL (Neg-Trace)
[2024-12-28 11:00] LABS: Basophils Percent Auto 0.3 % (0-2); Eosinophils Absolute Auto 0.1 X10*3/uL (0.0-0.4); Eosinophils Percent Auto 1.1 % (0-4); Hematocrit 41.3 % (37.0-47.0); Hemoglobin 13.6 g/dl (12.0-16.0); Imm Gran Abs Auto 0.05 X10*3/uL (0.00-0.03); Imm Gran Pct Auto 0.7 % (0.0-0.4); Lymphocytes Absolute Auto 1.8 X10*3/uL (1.2-4.9); Lymphocytes Percent Auto 23.6 % (20-40); Mean Corpuscular HGB Conc 32.9 g/dl (31.0-35.0); Mean Corpuscular Hemoglobin 32.4 pg (27.0-33.0); Mean Corpuscular Volume 98.3 fL (80.0-98.0); Mean Platelet Volume 12.1 fL (9.4-12.3); Monocytes Absolute Auto 0.8 X10*3/uL (0.1-1.2); Monocytes Percent Auto 10.8 % (2-11); Neutrophils Absolute Auto 4.8 x10*3/uL (2.0-8.3); Neutrophils Percent Auto 63.5 % (45-73); Platelet Count 277 X10*3/uL (160-400); Red Cell Distribution Width 13.3 % (11.0-16.0); White Blood Count 7.6 X10*3/uL (4.8-10.8)
[2024-12-28 11:07] LABS: Creatinine Urine 211.98 mg/dL; Microalbum/Creatinine Ratio Ur 49.5 ug/mg cr (<30)
[2024-12-28 11:08] LABS: Estimated Average Glucose 171 mg/dL; Hemoglobin A1c % 7.6 % (<6.0)
[2024-12-28 11:14] LABS: Alanine Aminotransferase 9 U/L (0-31); Albumin Level 4.3 g/dL (3.5-5.0); Alkaline Phosphatase 82 U/L (39-117); Anion Gap 14 (12-20); Aspartate Amino Transferase 26 U/L (5-31); Bilirubin Total 0.6 mg/dL (0.0-1.0); Blood Urea Nitrogen 17 mg/dL (9-16); Calcium 10.8 mg/dL (8.4-10.2); Carbon Dioxide 31 mmol/L (22-29); Chloride 100 mmol/L (96-108); Cholesterol 147 mg/dL (<200); Estimated Glomerular Filt Rate > 60; Glucose Fasting 153 mg/dL (60-99); HDL Cholesterol 38 mg/dL (>40); LDL Cholesterol Calculated 77 mg/dL (<100); Potassium 3.9 mmol/L (3.3-5.1); Sodium 141 mmol/L (135-145); Total Protein 8.6 g/dL (6.5-8.0); Triglycerides 162 mg/dL (<150)
--- OUTSIDE RECORDS SUMMARY | 2024-12-28 12:03 | XMS_ITS ---
Author Organization Mal Yin MD Address [address] [place], [place] [id number] Care Team Providers Care Lieutenant Shift Supervisor Name Role Phone Mal Yin Primary Care Provider [phone] REASON FOR VISIT Tamiflu Encounters Encounter Location Date Provider Diagnosis Mal Yin MD [address] [place], [place] [id number] 12/17/2024 Mal Yin Plan Of Treatment Next Appt Details Provider Name:Mal George ier, 12/31/2024 02:30:00 PM, [address], [address], [place], [place], [phone], Progress Notes * Danie CLINEOB:[birth year] (64 yo F)Acc No.[id number]:12/17/2024 Patient:?Annita CLINE :1960???Age:64 Y???Sex:Female Address:[address] [place] [address], [address], [place], [address] * true * Date:? Generated for Printi ng/Faxing/eTransmitting on:?12/28/2024 12:03 PM EST
--- OUTSIDE RECORDS SUMMARY | 2024-12-28 12:03 | XMS_ITS ---
Author Organization Mal Yin MD Address [address] [place], [place] [id number] Care Team Providers Care Fire Loss Prevention Engineer Name Role Phone Mal Yin Primary Care Provider Allergies No Known Allergies REASON FOR VISIT ? Flu c/o chills fatigue , temp is 102.1 headache ,sore throat productive cough, muscle pain runny nose congestion nauseau x 2 days tested yesterday negative for Covid, Video [phone] Medications Medication SIG (Take, Route, Frequency, Duration) Notes Start Date End Date Status D3 50 MCG (1999) TAKE 1 TABLET BY MANDI DAILY for 90 Active Lidocaine HCl 4 % [...] STOMACH FOR 30 DAYS for 30 Active Spironolactone-HCTZ 25-25 MG TAKE 1 TABLET BY MOUTH EVERY DAY for 90 Active Aspirin Low Dose 81 MG TAKE 1 TABLET BY MOUTH EVERY DAY for 90 Active Atenolol 50 MG TAKE 1 TABLET BY [facility] EVERY DAY for 90 Active GlucaGen HypoKit 1 MG as directed Inject ion as needed Active Lantus SoloStar 100 UNIT/ML 50 units Subcutaneous once a day Active Admelog SoloStar 100 UNIT/ML as directed Subcutaneous -15 18 units before meals three times per day total 75 units per day Active Fioricet 50-300-40 MG 1 capsule as neede d Orally every 4 hrs Active traMADol HCl 50 MG 1 tablet as needed Orally Once a day Active Atorvastatin Calcium 40 MG 1 tablet Orally Once a day Active BD Pen Needle Kelsey 2nd Gen 32G X 4 MM USE DIRECTED 4 TIMES A DAY for 30 Active metFORMIN HCl 500 MG 2 tablet with meals Orally Twice a day Active Ozempic (0.25 or 0.5 MG/DOSE) 2 MG/3ML 4mg/3ml 0.75 once a week Active Lisinopril 40 MG TAKE 1 TABLET BY [facility] EVERY DAY for 90 Active Oseltamivir Phosphate 75 MG 1 capsule Orally Twice a day for 5 day(s) 12/15/2024 Active FreeStyle Lite Test - USE DIRECTED TO TEST BLOOD SUGAR 3 TIMES A DAY BEFORE MEALS for 30 Active Freestyle Test Strips to test blood suga r invitro three times day before meals for 30 days Active Triamcinolone Acetonide 0.1 % APPLY DAILY TO SKIN EVERY DAY FOR 14 DAYS for 60 Active Alcohol Pads 70 % as directed on skin 4 times per day for 90 days 08/26/2018 Active Vitamin C 250 MG 1 tablet Orally Once a day Active TRUEplus Lancets 28G - 1 test 3 times pe r day 3 times for 30 days Active DULoxetine HCl 30 MG 1 capsule Orally Tw ice a day for 30 days Active PenTips 31G X 5 MM 1 sub q 4 times per day for 30 days Active Omeprazole 40 MG 1 capsule 30 minutes before morning meal Orally Once a day 04/11/2020 Active Gabapentin 300 MG 1 capsule Orally Twi ce a day Active SUMAtriptan Succinate 50 MG 1 tablet at least 2 hours between doses as needed Orally Twice a day Active tiZANidine HCl 2 MG 1 tablet as needed Orally Three times a day Active Vital Signs Temperature 102.1 degrees Fahrenheit 025 Height 60 in 12/15/2024 Weight 190 lbs 12/15/2024 BMI 37.1 kg/m2 12/15/2024 weight is 190 BP not taken a t home temp is 102.1 Encounters Encounter Location Date Provider Diagnosis Mal Yin MD [address] [place] [address] [place] [phone] 12/15/2024 Mal Yin Influenza A J10.1 Assessments Encounter Date Diagnosis (ICD Code) Assessment Notes Treatment Notes Treatment Clinical Notes Section Notes 12/15/2024 Influenza A (ICD-10 - J10.1) is prevalent in the community and she is unable to get out to get tested so will treat empirically, patient verbalized understanding of medication nd directions for use Plan Of Treatment Medication Medication Name Sig Start Date Stop Date Notes Oseltamivir Phosphate 75 MG 1 capsule Or ally Twice a day for 5 day(s) 12/15/2024 Treatment Notes Assessment Notes Influenza A is prevalent in the community and she is unable to get out to get tested so will treat empirically, patient verbalized understanding of medication nd directions for use Next Appt Details Provider Name:Mal George ier, 12/31/2024 02:30:00 PM, [address] [place] [address], [place] [address], [place], [place], [phone], Progress Notes * Danie CLINEOB:[birth year] (64 yo F)Acc No.[id number]:12/15/2024 Patient:?Annita CLINE Provider:?Mal Yin MD :1960???Age:64 Y???Sex:Female D ate:12/15/2024 Address:[address] [place], [place] [phone] Subjective: * Chief Complaints: * ? Flu c/o chills fatigue , temp is 102.1 headache ,sore throat productive cough, muscle pain runny nose congestion nauseau x 2 days tested yesterday negative for CovidVideo [phone] * HPI: ???Symptom(s):?Telehealth?Location of provider rendering services:?[address] [place] [address], [place] [address],?Location of patient:?at address listed in demographics for today's visit,?Patient identification confirmed using:?Name, ,?Telehealth method:?Video conference where patient is visible to the provider of care,?Consent:?Patient verbally consented to treatment, Patient verbally consented to billing insurance company, Patient informed of any privacy concerns related to method of visit,?Total time spend talking with patient (minutes)?18.?patient is a 64 yo female video teleheath visit, got sick yesterday. cold chills abody ache fever. back aches, has tested negative for covid, complaining of sore throat, cough and congestion as well. * ROS:?General/Constitutional:?Admits?Chills.?Admits?Fatigue.?Admits?Fever.?Admits?Headache.?ENT:?Patient denies?decreased sense of smell, any loss of taste.?Admits?Sore throat.?Respiratory:?Admits?Cough.?Denies?Shortness of breath at rest.?Denies?Shortness of breath with exertion.?Admits?Sputum production.?Gastrointestinal:?Denies?Diarrhea.?Admits?Nausea.?Musculoskeletal:?Admits?Muscle aches.?Peripheral Vascular:?Patient denies?red and blue toes.? * Medical History:? * Surgical History:? * Hospitalization/Major Diagno stic Procedure:? * Medications:?TakingGabapenti n 300 MG Capsule 1 capsule Orally Twice a day SUMAtriptan Succinate 50 MG Tablet 1 tablet at least 2 hours between doses as needed Orally Twice a day tiZANidine HCl 2 MG Tablet 1 tablet as needed Orally Three times a day Vitamin C 250 MG Tablet Chewable 1 tablet Orally Once a day TRUEplus Lancets 28G - Miscellaneous 1 test 3 times per day 3 times DULoxetine HCl 30 MG Capsule Delayed Release Particles 1 capsule Orally Twice a day PenTips 31G X 5 MM Miscellaneous 1 sub q 4 times per day Omeprazole 40 MG Capsule Delayed Release 1 capsule 30 minutes before morning meal Orally Once a day FreeStyle Lite Test - Strip USE DIRECTED TO TEST BLOOD SUGAR 3 TIMES A DAY BEFORE MEALS Freestyle Test Strips to test blood sugar invitro three times day before meals Triamcinolone Acetonide 0.1 % Cream APPLY DAILY TO SKIN EVERY DAY FOR 14 DAYS Alcohol Pads 70 % Pad as directed on skin 4 times per day Lisinopril 40 MG Tablet TAKE 1 TABLET BY MOUTH EVERY DAY Atorvastatin Calcium 40 MG Tablet 1 tablet Orally Once a day BD Pen Needle Kelsey 2nd Gen 32G X 4 MM Miscellaneous USE DIRECTED 4 TIMES A DAY metFORMIN HCl 500 MG Tablet 2 tablet with meals Orally Twice a day Ozempic (0.25 or 0.5 MG/DOSE) 2 MG/3ML Solution Pen- injector 4mg/3ml 0.75 once a week GlucaGen HypoKit 1 MG Solution Reconstituted as directed Injection as needed Lantus SoloStar 100 UNIT/ML Solution Pen-injector 50 units Subcutaneous once a day Admelog SoloStar 100 UNIT/ML Solution Pen-injector as directed Subcutaneous -15 18 units before meals three times per day total 75 units per day Fioricet 50-300-40 MG Capsule 1 capsule as needed Orally every 4 hrs traMADol HCl 50 MG Tablet 1 tablet as needed Orally Once a day Aspirin Low Dose 81 MG Tablet Delayed Release TAKE 1 TABLET BY MOUTH EVERY DAY Atenolol 50 MG Tablet TAKE 1 TABLET BY MOUTH EVERY DAY Ferrous Sulfate 325 (65 Fe) MG Tablet TAKE 1 TABLET BY MOUTH EVERY DAY Sucralfate 1 GM Tablet TAKE 1 TABLET BY MOUTH 3 TIMES A DAY ON AN EMPTY STOMACH FOR 30 DAYS Spironolactone-HCTZ 25-25 MG Tablet TAKE 1 TABLET BY MOUTH EVERY DAY D3 50 MCG (2000 UT) Tablet TAKE 1 TABLET BY MOUTH DAILY Taking Gabapentin 300 MG Capsule 1 capsule Orally Twice a day Taking SUMAtriptan Succinate 50 MG Tablet 1 tablet at least 2 hours between doses as needed Orally Twice a day Taking tiZANidine HCl 2 MG Tablet 1 tablet as needed Orally Three times a day Taking Vitamin C 250 MG Tablet Chewable 1 tablet Orally Once a day Taking TRUEplus Lancets 28G - Miscellaneous 1 test 3 times per day 3 times Taking DULoxetine HCl 30 MG Capsule Delayed Release Particles 1 capsule Orally Twice a day Taking PenTips 31G X 5 MM Miscellaneous 1 sub q 4 times per day Taking Omeprazole 40 MG Capsule Delayed Release 1 capsule 30 minutes before morning meal Orally Once a day Taking FreeStyle Lite Test - Strip USE DIRECTED TO TEST BLOOD SUGAR 3 TIMES A DAY BEFORE MEALS Taking Freestyle Test Strips to test blood sugar invitro three times day before meals Taking Triamcinolone Acetonide 0.1 % Cream APPLY DAILY TO SKIN EVERY DAY FOR 14 DAYS Taking Alcohol Pads 70 % Pad as directed on skin 4 times per day Taking Lisinopril 40 MG Tablet TAKE 1 TABLET BY MOUTH EVERY DAY Taking Atorvastatin Calcium 40 MG Tablet 1 tablet Orally Once a day Taking BD Pen Needle Kelsey 2nd Gen 32G X 4 MM Miscellaneous USE DIRECTED 4 TIMES A DAY Taking metFORMIN HCl 500 MG Tablet 2 tablet with meals Orally Twice a day Taking Ozempic (0.25 or 0.5 MG/DOSE) 2 MG/3ML Solution Pen-injector 4mg/3ml 0.75 once a week Taking GlucaGen HypoKit 1 MG Solution Reconstituted as directed Injection as needed Taking Lantus SoloStar 100 UNIT/ML Solution Pen-injector 50 units Subcutaneous once a day Taking Admelog SoloStar 100 UNIT/ML Solution Pen- injector as directed Subcutaneous -15 18 units before meals three times per day total 75 units per day Taking Fioricet 50-300-40 MG Capsule 1 capsule as needed Orally every 4 hrs Taking traMADol HCl 50 MG Tablet 1 tablet as needed Orally Once a day Taking Aspirin Low Dose 81 MG Tablet Delayed Release TAKE 1 TABLET BY MOUTH EVERY DAY Taking Atenolol 50 MG Tablet TAKE 1 TABLET BY MOUTH EVERY DAY Taking Ferrous Sulfate 325 (65 Fe) MG Tablet TAKE 1 TABLET BY MOUTH EVERY DAY Taking Sucralfate 1 GM Tablet TAKE 1 TABLET BY MOUTH 3 TIMES A DAY ON AN EMPTY STOMACH FOR 30 DAYS Taking Spironolactone-HCTZ 25-25 MG Tablet TAKE 1 TABLET BY MOUTH EVERY DAY Taking D3 50 MCG (2000 UT) Tablet TAKE 1 TABLET BY MOUTH DAILY Not-Taking/PRNLidocaine HCl 4 % Pad as directed Externally at night Diprolene AF 0.05 % Cream 1 application to affected area Externally Once a day Ketoconazole 2 % Shampoo Externally Mapap 500 MG Capsule 2 capsules as needed Orally every 6 hrs Medication List reviewed and reconciled with the patientNot-Taking/PRN Lidocaine HCl 4 % Pad as directed Externally at night Not-Taking/PRN Diprolene AF 0.05 % Cream 1 application to affected area Externally Once a day Not-Taking/PRN Ketoconazole 2 % Shampoo Externally Not-Taking/PRN Mapap 500 MG Capsule 2 capsules as needed Orally every 6 hrs Medication List reviewed and reconciled with the patient * Allergies:?N.K.D.A.yes[Aller gies Verified] Objective: * Vitals:?Ht: 60, Wt: 190, BMI :37.1, Temp:102.1, Wt-k.18. weight is 190? BP? not taken at home? temp is 102.1. * Examination: ???General Examination: ?GENERAL APPEARANCE:?alert, well hydrated, in no distress coughing repeatedly.?HEAD:?normocephalic.? Assessment: * Assessment: 1.?Influenza A - J10.1 (Prim yenny)??? Plan: * Treatment: * Procedure Codes:? * * Sign off status: Completed true * Provider:?Mal Yin MD Date:?0 12/15/2024 Generated for Erick kim/Scott/eTransmitting on:?12/28/2024 12:03 PM EST History and Physical Notes * HPI (History of Present Illness) Category Sub-Category Detail Notes Category Not es Symptom(s) [facility]health [facility] [address], [address] patient is a 64 yo female video teleheath visit, got sick yesterday. cold chills abody ache fever. back aches, has tested negative for covid, complaining of sore throat, cough and congestion as well. Location of patient:: at address listed in demographics for today's visit Patient identification confirmed using:: Name, Telehealth method:: Video co nference where patient is visible to the provider of care Consent:: Patient verbally c onsented to treatment, Patient verbally consented to billing insurance company, Patient informed of any privacy concerns related to method of visit Total time spend talking with patient (m inutes): 18 Examination Category Sub-Category Detail Notes Category Not es General Examination GENERAL APPEARANCE: alert, w ell hydrated, in no distress coughing repeatedly HEAD: normocephalic
--- OUTSIDE RECORDS SUMMARY | 2024-12-28 12:03 | XMS_ITS | Clinical Summary ---
Author Organization [facility] Facility Address [address] [address] Care Team Providers Care Mining Engineer Name Role Phone Mal Yin MD Primary Care Provider [phone] Allergies No known active allergies Medications triamcinolone [...] Insurance [employer] Care Teams Mining Engineer Relationship Specialty Start Date End Date Mal Yin MD [address] [place] [address] [address] [place], [place] PCP - General Internal Medicine 12/20/21
== END 2024-12-28 08:01 | disposition home or self-care (01) ==
LOC: HO.LNP 08:00
PROVIDERS: Visit Provider Internal Medicine
DX: Z00.00 Encounter for general adult medical examination without abnormal findings (principal); I10 Essential (primary) hypertension; E11.9 Type 2 diabetes mellitus without complications; E55.9 Vitamin D deficiency, unspecified; E78.00 Pure hypercholesterolemia, unspecified; D69.6 Thrombocytopenia, unspecified
CPT/HCPCS: 80053; 80061; 81003; 82043; 82306; 82570; 83036; 85025

== ENCOUNTER 2024-12-30 10:55 | Outpatient (AMB) | payer OTHER, SELFPAY ==
[2024-12-30 10:58] VITALS: BP 168/74; PULSE 94; RESP 16; O2SAT 95; BMI 30.2
--- NOTE | 2024-12-30 10:58 | A.OFFVIS_ITS ---
Vital Signs 12/30/24 10:58 Height 5 ft 4 in Weight 176 lb BMI 30.2 BP 168/74 H Blood Pressure Location Lt brachial Position Sitting Respiration 16 Pulse 94 Pulse Source Pulse Oximeter Pulse Oximetry (%) 95 Oxygen Delivery Method Room Air Intake Visit Reasons: 2 weeks FU/gloria cancelled appt from 12/18 Custom Grinder Required: No Efficiency Clerk: Efficiency Clerk Present Accompanied by: Tan Mendez Allergies GEL ELECTRODES Allergy (Mild, Uncoded 12/30/24 11:05) RASH Medication List - Last Reconciled 12/30/24 by Monica Brock LPN acetaminophen (Tylenol Extra Strength) 500 mg PO Q6H PRN alcohol swabs pad topical amlodipine 2.5 mg PO DAILY aspirin 81 mg PO DAILY atenolol 50 mg PO DAILY atorvastatin 40 mg PO DAILY@1700 blood sugar diagnostic (FreeStyle Lite Strips) DIRECTED 4 TIMES A DAY uuqnotmfub-zoiaogaiuubvs-rvss 50-300-40 mg (Fioricet) 1 cap PO Q8H PRN cholecalciferol (vitamin D3) 50 mcg PO DAILY docusate sodium (Colace) 100 mg PO BID empagliflozin (Jardiance) 25 mg PO QAM ferrous sulfate 325 mg PO DAILY flash glucose scanning reader (FreeStyle Marty 2 [place]) As directed flash glucose sensor (FreeStyle Marty 2 Sensor kit) DIRECTED CHANGE EVERY 14 DAYS gabapentin 300 mg PO BID glucagon (Gvoke HypoPen 2-Pack) 1 mg (0.2 mL) subcut ONCE insulin glargine (Lantus Solostar U-100 Insulin) 50 units (0.5 mL) subcut BEDTIME insulin lispro (Admelog SoloStar U-100 Insulin lispro) 15 u for small meals, 15 u for large, + 2 units for bg>200, + 3 units for BG >250, + 4 units bg >300mg/dl. Of note..for very light meal use only 6 units. subcut 3 times a day; 30 days lisinopril 40 mg PO DAILY metformin 500 mg PO BID 90 days pantoprazole (Protonix) 40 mg PO DAILY pen needle, diabetic As directed semaglutide (Ozempic) 2 mg (0.75 mL) subcut QWEEK sucralfate 1 g PO TID sumatriptan succinate mg PO HPI HPI 2 weeks FU/gloria cancelled appt from 12/18: Details: History of Present Illness The patient is a 64-year-old female presenting with exacerbation of left knee pain secondary to osteoarthritis. She has experienced bilateral shoulder and knee pain over a prolonged period, managed with corticosteroid injections. These have been moderately effective in pain management but have contributed to hyperglycemia and Cushingoid facies. Previously satisfactory outcomes from injections are no longer insulating her from considerable discomfort, particularly in the left knee, which requires further attention. Given the complications related to steroid use and the current acute exacerbation, alternative therapeutic strategies are under consideration to address her pain while minimizing the negative systemic effects. Pain Description - Onset: Exacerbation of chronic osteoarthritic pain in left knee - Quality: Not detailed - Primary Location: Left knee - Exacerbations: Attributed to osteoarthritis - Alleviating factors: Prior cortisone injections - Impact: Significant enough to prompt evaluation for alternative pain manage ment options Physical Exam - Appears afebrile. - Alert and oriented. - Mood and affect appropriate. - Follows and participates in conversation appropriately. - Respiratory effort is unlabored. - Able to transition from sit to stand unassisted. - Ambulates with bilaterally normal heel strike and toe off. - Able to stand and walk on toes and heels. Pain Management - Affect: Patient exhibits understanding of their condition and treatment options. - Analgesia: Current use of corticosteroids has been somewhat effective. Due to adverse effects, alternatives are being considered. - Adverse Effects: Hyperglycemia and Cushingoid facies due to corticosteroid therapy. - Activities of Daily Living: Pain from osteoarthritis significantly impacts daily activities. - Aberrant Drug Related Behaviors: None indicated. [facility] Medical History Arthritis Anemia GI bleed Temporal headache Urinary incontinence Chronic constipation Fibromyalgia Primary osteoarthritis of knees, bilateral NAFLD (nonalcoholic fatty liver disease) Tubular adenoma of colon Essential hypertension Neuropathy Osteoarthritis DARIEL on CPAP Upper GI bleed Hepatomegaly History of alcohol abuse Stroke Depression Anxiety Hyperlipidemia LDL goal <70 Obesity with body mass index of 30.0-39.9 Type 2 diabetes mellitus with diabetic polyneuropathy Surgical History History of temporal artery biopsy Hx of esophagogastroduodenoscopy Hx of colonoscopy Family History Father Diabetes Mother Hypertension Daughter Breast cancer Ovarian cancer Social History Household Members: Family Household Members Other:: adult child and grandchild Are you a primary housekeeper caregiver to a significant other at home: No Do you presently have visiting nurse or other home services: No Alcohol intake: former Patient Tobacco Use Status: Former Tobacco user Years Smoked: quit 10 years ago Current occupational status: disabled Current occupation: rt handed Physical Exam Vital Signs: Last Vital Signs Pulse 94 12/30/24 10:58 Resp 16 12/30/24 10:58 BP 168/74 H 12/30/24 10:58 Pulse Ox 95 12/30/24 10:58 Oxygen Delivery Method Room Air 12/30/24 10:58 BMI result Body Mass Index 30.2 Office Procedures AMB Joint Injection/Aspiration Joint Injection/Aspiration Primary Site: left knee Prep: site was prepped using sterile technique Injected: 20 mg of, Kenalog, with 3 mL of (ropivacaine 0.5%) and in the joint Procedure: The patient tolerated the procedure well Coding 75003 - Large joint Procedure code (CPT) selection complete Assessment & Plan Assessment & Plan (1) Bilateral knee pain: Code(s): M25.561 - Pain in right knee; M25.562 - Pain in left knee Category: Medical Plan Plan The patient received a cortisone injection of 20 mg Kenalog in the left knee today to address the exacerbation of osteoarthritis-related knee pain. Due to adverse effects from previous corticosteroid regimens, such as hyperglycemia and Cushingoid facies, we have decided to reduce corticosteroid doses moving forward. Should today's intervention not sufficiently alleviate discomfort, we will consider initiating temporary saphenous nerve stimulation as a next step. If the knee responds positively while shoulder pain remains problematic, suprascapular nerve stimulation will be further discussed. This shift to local nerve stimulation aims to manage pain while countering corticosteroid-related side effects. The patient understands and agrees with this tailored management approach. Regular follow-up for assessment of pain control is planned, and adjustments will be based on her response. Patient was informed and verbally consented to the use of an ambient scribe for clinic note documentation during this visit. Discussion Notes Today, I discussed with the patient the management of her exacerbated left knee pain due to osteoarthritis. After considering her history of corticosteroid use and the associated adverse effects like hyperglycemia and Cushingoid changes, we decided on administering a reduced dose (20 mg Kenalog) for today?s cortisone injection. We reviewed the potential to transition from steroid injections to nerve stimulation therapy to mitigate the need for excessive steroids. I outlined the plan of starting with temporary nerve stimulation therapy if current treatments fall short. This includes specific interventions if knee pain persists or should shoulder pain become the primary issue. The patient was provided an explanation of the procedure, potential benefits, risks, and the rationale to reduce steroid-related side effects. Brochures and educational materials on temporary nerve stimulation were shared for her better understanding, and she has demonstrated comprehension and consent towards transitioning to this treatment pathway. The patient is aware of follow-up requirements to monitor response to today?s treatment and adjust the plan as needed. Patient Instructions - Monitor the left knee for pain relief after today's injection. - Contact the office within a few days to report on pain status. - If pain persists, be prepared for potential nerve stimulation therapy as the next step. - Review provided educational materials on nerve stimulation procedures. - Maintain diabetes management plan and monitor blood sugar levels due to hyperglycemia risk. Coding Level of Care Code Est Pt Level 3 (39795) Diagnoses Bilateral knee pain M25.561; M25.562 CPT Codes Coding - 41354 Large joint: 17380 - Large joint ([id number])
== END 2024-12-30 11:25 | disposition home or self-care (01) ==
PROVIDERS: PCP Internal Medicine; Visit Provider Internal Medicine
DX: M25.561 Pain in right knee (principal); M25.562 Pain in left knee
CPT/HCPCS: 20610; 99213

== ENCOUNTER → 2024-12-30 10:55 | Outpatient (BNVA) | payer OTHER, SELFPAY | PROVIDERS: PCP Internal Medicine; Visit Provider Internal Medicine | DX: M17.12 Unilateral primary osteoarthritis, left knee (principal); M25.561 Pain in right knee | CPT/HCPCS: 20610; 99212; J2795; J3301 ==

== ENCOUNTER 2024-12-31 14:30 | Outpatient (REF) | payer OTHER, SELFPAY ==
[2024-12-31 16:03] LABS: Calcium 9.2 mg/dL (8.4-10.2)
--- OUTSIDE RECORDS SUMMARY | 2024-12-31 18:42 | XMS_ITS | Clinical Summary ---
Author Organization [facility] Facility Address [address] [address] Care Team Providers Care Custom Bookbinder Name Role Phone Mal Yin MD Primary [...] Insurance [place] Care Teams Custom Bookbinder Relationship Specialty Start Date End Date Mal Yin MD [address] [place] [address] [id number] [place], [place] PCP - General Internal Medicine 12/20/21
--- OUTSIDE RECORDS SUMMARY | 2024-12-31 18:42 | XMS_ITS ---
Author Organization Mal Yin MD Address [address] [place], [place] [id number] Care Team Providers Care Health And Physical Education Teacher Name Role Phone Mal Yin Primary Care Provider [phone] REASON FOR VISIT Tamiflu Encounters Encounter Location Date Provider Diagnosis Mal Yin MD [address] [facility] [address] [place], [place] [phone] 12/17/2024 Mal Yin Plan Of Treatment Next Appt Details Provider Name:Mal quispe, 06/25/2025 08:00:00 AM, [address] [place] [address], [address] [place] [address], [phone], Provider Name:Mal George ieana, 07/02/2025 01:30:00 PM, [address] [place] [address], [address] [place] [address], [phone], Provider Name:Mal George ieana, 12/28/2025 08:00:00 AM, [address] [place] [address], [address], [phone], Provider Name:Mal quispe, 01/04/2026 02:30:00 PM, [address] [place] [address], [address], [phone], Progress Notes * Danie CLINEOB:[birth year] (64 yo F)Acc No.[id number]:12/17/2024 Patient:?Annita CLINE :1960???Age:64 Y???Sex:Female Address:[address] [place] [address], [place], [address] * true * Date:? Generated for Erick kim/Scott/eTransmitting on:?12/31/2024 06:42 PM EST
--- OUTSIDE RECORDS SUMMARY | 2024-12-31 18:42 | XMS_ITS ---
Author Organization Mal Yin MD Address [address] [place], [place] [id number] Care Team Providers Care Financial Systems Manager Name Role Phone Mal Yin Primary Care Provider [phone] Results Component Value Reference Range Notes Complete Blood Count Auto Di ff Reviewed date:12/29/2024 04:48:03 PM Interpretation: Performing Lab:[facility], [address] [place] [id number] Notes/Report: White Blood Count 7.6 4.8-10.8 X10*3/uL Red Blood Count 4.20 4.20-5.50 X10*6/uL Hemoglobin 13.6 12.0-16.0 g/dl Hematocrit 41.3 37.0-47.0 % Mean Corpuscular Volume 98.3 80.0-98.0 fL Mean Corpuscular Hemoglobin 32.4 27.0-33.0 pg Mean Corpuscular HGB Conc 32.9 31.0-35.0 g/dl Red Cell Distribution Width 13.3 11.0-16.0 % Platelet Count 277 160-400 X10*3/uL Mean Platelet Volume 12.1 9.4-12.3 fL Neutrophils Percent Auto 63.5 45-73 % Imm Gran Pct Auto 0.7 0.0-0.4 % Lymphocytes Percent Auto 23.6 20-40 % Monocytes Percent Auto 10.8 2-11 % Eosinophils Percent Auto 1.1 0-4 % Basophils Percent Auto 0.3 0-2 % NRBC Pct Auto 0.0 0.0-0.2 /100WBC Neutrophils Absolute Auto 4.8 2.0-8.3 x10*3/u L Imm Gran Abs Auto 0.05 0.00-0.03 X10*3/uL Lymphocytes Absolute Auto 1.8 1.2-4.9 X10*3/u L Monocytes Absolute Auto 0.8 0.1-1.2 X10*3/uL Eosinophils Absolute Auto 0.1 0.0-0.4 X10*3/u L Basophils Absolute Auto 0.0 0.0-0.2 X10*3/uL NRBC Abs Auto 0.000 0.0-0.012 X10*3/uL Comprehensive [place]. Panel Fa st Reviewed date:12/29/2024 12:54:03 PM Interpretation: Performing Lab:[address] [id number] Notes/Report: Sodium 141 135-145 mmol/L Potassium 3.9 3.3-5.1 mmol/L Chloride 100 96-108 mmol/L Carbon Dioxide 31 22-29 mmol/L Anion Gap 14 12-20 Blood Urea Nitrogen 17 9-16 mg/dL Creatinine 0.77 0.5-1.4 mg/dL Estimated Glomerular Filt Rate > 60 Chronic Kidney Disease: Estimated GFR < 60 mL/min/1.73m2 Severe Kidney Disease: Estimated GFR < 15 mL/min/1.73m2 Glucose Fasting 153 60-99 mg/dL A fasting glucose of 126 mg/dl or greater on more than one occasion is considered diagnostic of diabetes. Calcium 10.8 8.4-10.2 mg/dL Bilirubin Total 0.6 0.0-1.0 mg/dL Aspartate Amino Transferase 26 5-31 U/L Alanine Aminotransferase 9 0-31 U/L Total Protein 8.6 6.5-8.0 g/dL Albumin Level 4.3 3.5-5.0 g/dL Alkaline Phosphatase 82 39-117 U/L Lipid Panel Reviewed date:12/28/2024 05:26:42 PM Interpretation: Performing Lab:[address] [id number] Notes/Report: Triglycerides 162 <150 mg/dL Desirable Triglyceride: less than 150 mg/dL Borderline High Triglyceride 150-199 mg/dL High Triglyceride: 200-499 mg/dL Very High Triglyceride: greater than or equal to 5OO mg/dL Cholesterol 147 <200 mg/dL Desirable Cholesterol: less than 200 mg/dL Borderline High Cholesterol: 200-239 mg/dL High Cholesterol: greater than 239 mg/dL LDL Cholesterol Calculated 77 <100 mg/dL Desirable LDL: less than 100 mg/dL Near Optimal/Above Optimal LDL: 110-129 mg/dL Borderline High LDL: 130-159 mg/dL High LDL: 160-189 mg/dL Very High LDL: greater than or equal to 190 mg/dL HDL Cholesterol 38 >40 mg/dL Desirable HDL: greater than 40 mg/dL Note: This HDL assay may give artificially low results in patients with liver disease. Vitamin D 25-OH Total Reviewed date:12/28/2024 05:27:09 PM Interpretation: Performing Lab:[address] [phone] Notes/Report: Vitamin D 25-OH Total 32.0 >30 ng/mL Health Based Reference Values* < [...] method such as LC-MS/MS. Microalbumin, Random Reviewed date:12/28/2024 05:26:30 PM Interpretation: Performing Lab:[address] [phone] Notes/Report: Creatinine Urine 211.98 Microalbumin Urine 105.0 Microalbum/Creatinine Ratio Ur 49.5 <30 ug/mg cr Albumin/Creatinine Ratio Reference Ranges: Normal: < 30 ug/mg creatinine Microalbuminuria: 30 - 300 ug/mg creatinine Clinical Albuminuria: > 300 ug/mg creatinine Hemoglobin A1c Reviewed date:12/28/2024 05:17:57 PM Interpretation: Performing Lab:[facility], [address] [facility] [facility], [place] [address] Notes/Report: Hemoglobin A1c % 7.6 <6.0 % Hemoglobin A1C Reference Range Adults: 4.8 - 6.0 % Non diabetic: < 6.0 % Goal: < 7.0 % Additional Action Suggested: > 8.0 % Note: Hemoglobin A1c results are invalid for patients with abnormal amounts of HbF. Blood transfusions may impact the HbA1c concentration in the patient sample. Estimated Average Glucose 171 eAG = Estimated average glucose which is %A1C expressed as average glucose, using the formula of the [id number] Average Glucose study (ADAG), Diabetes Care, Vol.31,#8, Jun. 2007 REASON FOR VISIT FASTING LABS Encounters Encounter Location Date Provider Diagnosis Mal Yin MD [address] [place] [address] [place] [phone] 12/28/2024 Mal Yin Blood tests for rout ine general physical examination Z00.00 ; Type 2 diabetes mellitus without complications E11.9 ; Essential hypertension I10 ; Hypercholesterolemia E78.00 ; Vitamin D deficiency E55.9 and Thrombocytopenia D69.6 Assessments Encounter Date Diagnosis (ICD Code) Assessment Notes Treatment Notes Treatment Clinical Notes Section Notes 12/28/2024 Blood tests for rout ine general physical examination (ICD-10 - Z00.00) 12/28/2024 Type 2 diabetes richy itus without complications (ICD-10 - E11.9) 12/28/2024 Essential hypertensi on (ICD-10 - I10) 12/28/2024 Hypercholesterolemia (ICD-10 - E78.00) 12/28/2024 Vitamin D deficiency (ICD-10 - E55.9) 12/28/2024 Thrombocytopenia (IC D-10 - D69.6) Plan Of Treatment Pending Test Test Name Order Date UA ClnCatch+Micro w/rflx Cult 12/28/2024 Next Appt Details Provider Name:Mal quispe, 06/25/2025 08:00:00 AM, [address] [place] [address], [address], [place], [place], [phone], Provider Name:Mal quispe, 07/02/2025 01:30:00 PM, [address], [address], [place], [place], [phone], Provider Name:Mal George ier, 12/28/2025 08:00:00 AM, [address], [address], [place], [place], [phone], Provider Name:Mal George ier, 01/04/2026 02:30:00 PM, [address], [address], [place], [phone], Progress Notes * CLINESuzycatarinoieDOB:[birth year] (64 yo F)Acc No.[id number]:12/28/2024 Progress Note Patient:?Suzy CLINEdavion phong Provider:?Mal Yin MD :1960???Age:64 Y???Sex:Female D ate:12/28/2024 Address:[address] [place] [address], [address] Subjective: * Chief Complaints: * ???1. FASTING LABS. * Medical History:? Objective: * Vitals:? Assessment: * Assessment: 1.?Blood tests for routine g eneral physical examination - Z00.00 (Primary)???2.?Type 2 diabetes mellitus without complications - E11.9???3.?Essential hypertension - I10???4.?Hypercholesterolemia - E78.00???5.?Vitamin D deficiency - E55.9???6.?Thrombocytopenia - D69.6??? Plan: * Treatment: 2.?Type 2 diabetes mellitus without complications?LAB: UA ClnCatch+Micro w/rflx Cult ?LAB: Complete Blood Count Auto Diff (Collection Date & Time - 12/28/2024 08:00 AM) ?LAB: Comprehensive [place]. Panel Fast (Collection Date & Time - 12/28/2024 08:00 AM) ?LAB: Lipid Panel (Collection Date & Time - 12/28/2024 08:00 AM) ?LAB: Vitamin D 25-OH Total (Collection Date & Time - 12/28/2024 08:00 AM) ?LAB: Microalbumin, Random (Collection Date & Time 12/28/2024 08:00 AM) ?LAB: Hemoglobin A1c (Collection & Time 12/28/2024 08:00 AM) 3.?Essential hypertension?LAB: UA ClnCatch+Micro w/rflx Cult ?LAB: Complete Blood Count Auto Diff (Collection Date & Time 12/28/2024 08:00 AM) ?LAB: Comprehensive [place]. Panel Fast (Collection Date & Time 12/28/2024 08:00 AM) ?LAB: Lipid Panel (Collection Date & Time 12/28/2024 08:00 AM) ?LAB: Vitamin D 25-OH Total (Collection & Time 12/28/2024 08:00 AM) ?LAB: Microalbumin, Random (Collection Date & Time 12/28/2024 08:00 AM) ?LAB: Hemoglobin A1c (Collection Date & Time 12/28/2024 08:00 AM) 4.?Hypercholesterolemia?LAB: UA ClnCatch+Micro w/rflx Cult ?LAB: Complete Blood Count Auto Diff (Collection & Time 12/28/2024 08:00 AM) ?LAB: Comprehensive [place]. Panel Fast (Collection Date & Time 12/28/2024 08:00 AM) ?LAB: Lipid Panel (Collection Date & Time 12/28/2024 08:00 AM) ?LAB: Vitamin D 25-OH Total (Collection Date & Time 12/28/2024 08:00 AM) ?LAB: Microalbumin, Random (Collection Date & Time 12/28/2024 08:00 AM) ?LAB: Hemoglobin A1c (Collection Date & Time 12/28/2024 08:00 AM) 5.?Vitamin D deficiency?LAB: UA ClnCatch+Micro w/rflx Cult ?LAB: Complete Blood Count Auto Diff (Collection Date & Time - 12/28/2024 08:00 AM) ?LAB: Comprehensive [place]. Panel Fast (Collection Date & Time - 12/28/2024 08:00 AM) ?LAB: Lipid Panel (Collection Date & Time - 12/28/2024 08:00 AM) ?LAB: Vitamin D 25-OH Total (Collection Date & Time - 12/28/2024 08:00 AM) ?LAB: Microalbumin, Random (Collection Date & Time - 12/28/2024 08:00 AM) ?LAB: Hemoglobin A1c (Collection Date & Time - 12/28/2024 08:00 AM) 6.?Thrombocytopenia?LAB: UA ClnCatch+Micro w/rflx Cult ?LAB: Complete Blood Count Auto Diff (Collection Date & Time - 12/28/2024 08:00 AM) ?LAB: Comprehensive [place]. Panel Fast (Collection Date & Time 12/28/2024 08:00 AM) ?LAB: Lipid Panel (Collection Date & Time 12/28/2024 08:00 AM) ?LAB: Vitamin D 25-OH Total (Collection Date & Time 12/28/2024 08:00 AM) ?LAB: Microalbumin, Random (Collection & Time 12/28/2024 08:00 AM) ?LAB: Hemoglobin A1c (Collection Date & Time - 12/28/2024 08:00 AM) * Procedure Codes:?85122 VENIP UNCT, ROUTINE* * * The named appointment provid er may or may not be the originator of this progress note, and it is not deemed complete until electronically signed by the appointment provider. Sign off status: Pending * Provider:?Mal Yin MD Date:?0 12/28/2024 Generated for Erick kim/Scott/eTtravisitting on:?12/31/2024 06:42 PM EST
== END 2024-12-31 14:31 | disposition home or self-care (01) ==
LOC: HO.LNP 14:30
PROVIDERS: Visit Provider Internal Medicine
DX: E83.52 Hypercalcemia (principal)
CPT/HCPCS: 82310

== ENCOUNTER 2025-01-20 10:25 | Outpatient (AMB) | payer OTHER, SELFPAY ==
--- NOTE | 2025-01-20 10:29 | MHC.OFFVIS ---
Vital Signs 01/20/25 10:30 Height 5 ft 4 in Weight 174 lb BMI 29.9 BP 175/77 H Blood Pressure Location Lt brachial Position Sitting Respiration 16 Pulse 97 Pulse Source Pulse Oximeter Pulse Oximetry (%) 98 Oxygen Delivery Method Room Air Intake Visit Reasons: FU knee pain is back/stimulator discussion Supply Specialist Required: No Allergies GEL ELECTRODES Allergy (Mild, Uncoded 01/29/25 13:19) RASH Medication List - Last Reconciled 01/20/25 by Monica Brock LPN acetaminophen (Tylenol Extra Strength) 500 mg PO Q6H PRN alcohol swabs pad topical amlodipine 2.5 mg PO DAILY aspirin 81 mg PO DAILY atenolol 50 mg PO DAILY atorvastatin 40 mg PO DAILY@1700 blood sugar diagnostic (FreeStyle Lite Strips) DIRECTED 4 TIMES A DAY tuxwngldub-nusklcxmwoydr-iswb 50-300-40 mg (Fioricet) 1 cap PO Q8H PRN cholecalciferol (vitamin D3) 50 mcg PO DAILY docusate sodium (Colace) 100 mg PO BID empagliflozin (Jardiance) 25 mg PO QAM ferrous sulfate 325 mg PO DAILY flash glucose scanning reader (SkubanaStyle Marty 2 Mamou) As directed flash glucose sensor (FreeStyle Marty 2 Sensor kit) DIRECTED CHANGE EVERY 14 DAYS gabapentin 300 mg PO BID glucagon (Gvoke HypoPen 2-Pack) 1 mg (0.2 mL) subcut ONCE insulin glargine (Lantus Solostar U-100 Insulin) 50 units (0.5 mL) subcut BEDTIME insulin lispro (Admelog SoloStar U-100 Insulin lispro) 15 u for small meals, 15 u for large, + 2 units for bg>200, + 3 units for BG >250, + 4 units bg >300mg/dl. Of note..for very light meal use only 6 units. subcut 3 times a day; 30 days lisinopril 40 mg PO DAILY metformin 500 mg PO BID 90 days pantoprazole (Protonix) 40 mg PO DAILY pen needle, diabetic As directed semaglutide (Ozempic) 2 mg (0.75 mL) subcut QWEEK sucralfate 1 g PO TID sumatriptan succinate mg PO HPI HPI FU knee pain is back/stimulator discussion: Details: History of Present Illness The patient is a 64-year-old female presenting with persistent left knee pain. She has a history of osteoarthritis confirmed previously and managed with a partial cortisone injection, which did not yield significant relief. Pain issues have been recurrent, with the right knee also becoming symptomatic, although the left side remains the primary complaint. Despite efforts such as elevation and use of knee braces, pain persists notably during weight-bearing activities. She voices frustration over continuous discomfort, likening it to needle pricks. This pain complicates her daily life, especially given her background of diabetes which poses a risk due to the long-term corticosteroid complications. The patient suggests possible carpal tunnel syndrome recurrence, impacting hand engraver seals and causing further distress. Insurance negotiations for nerve stimulation therapy are underway as this represents a potential non-pharmacological intervention that she wishes to explore, emphasizing the importance of alternative management due to limited efficacy with pharmacological options. Pain Description - Onset and Timing: Chronic, with recent exacerbation reported - Quality and Character: Sharp, needle-like pinching sensation - Primary Location: Primarily the left knee, with reported right knee symptoms - Radiation: No specific radiation mentioned - Exacerbating Factors: Weight-bearing activities, particularly when putting feet down - Relieving Factors: Elevation of the legs, use of hospital bed - Interferences: Sleep quality improved but functional constraints remain, obstructing daily activities Physical Exam - Appears afebrile. - Alert and oriented. - Mood and affect appropriate. - Follows and participates in conversation appropriately. - Respiratory effort is unlabored. Pain Management - Affect: Frustration due to persistent knee pain interfering with daily activities - Analgesia: Half-dose cortisone injection has been used; however, inadequate pain relief reported - Adverse Effects: Not explicitly mentioned; concern over hyperglycemia related to steroid treatment expressed - Activities of Daily Living: Pain predominantly restricts weight-bearing and static standing - Aberrant Drug Related Behaviors: None reported or discussed [facility] Medical History Arthritis Anemia GI bleed Temporal headache Urinary incontinence Chronic constipation Fibromyalgia Primary osteoarthritis of knees, bilateral NAFLD (nonalcoholic fatty liver disease) Tubular adenoma of colon Essential hypertension Neuropathy Osteoarthritis DARIEL on CPAP Upper GI bleed Hepatomegaly History of alcohol abuse Stroke Depression Anxiety Hyperlipidemia LDL goal <70 Obesity with body mass index of 30.0-39.9 Type 2 diabetes mellitus with diabetic polyneuropathy Surgical History History of temporal artery biopsy Hx of esophagogastroduodenoscopy Hx of colonoscopy Family History Father Diabetes Mother Hypertension Daughter Breast cancer Ovarian cancer Social History Household Members: Family Household Members Other:: adult child and grandchild Are you a primary healthcare manager to a significant other at home: No Do you presently have visiting nurse or other home services: No Alcohol intake: former Patient Tobacco Use Status: Former Tobacco user Years Smoked: quit 10 years ago Current occupational status: disabled Current occupation: rt handed Physical Exam Vital Signs: Last Vital Signs Pulse 97 01/20/25 10:30 Resp 16 01/20/25 10:30 BP 175/77 H 01/20/25 10:30 Pulse Ox 98 01/20/25 10:30 Oxygen Delivery Method Room Air 01/20/25 10:30 BMI result Body Mass Index 29.9 Assessment & Plan Assessment & Plan (1) Bilateral knee pain: Code(s): M25.561 - Pain in right knee; M25.562 - Pain in left knee Category: Medical (2) Type 2 diabetes mellitus with diabetic polyneuropathy: Code(s): E11.42 - Type 2 diabetes mellitus with diabetic polyneuropathy Category: Medical Qualifiers: Diabetes mellitus senior care insulin use: with senior care use Qualified Code(s): E11.42 - Type 2 diabetes mellitus with diabetic polyneuropathy; Z79.4 - terminal block assembler (current) use of insulin Plan Plan The plan to address the patient's osteoarthritis-related knee pain includes pursuing a nerve stimulator for refractory pain, contingent upon insurance authorization. The success of this treatment modality may influence similar intervention for the right knee. The patient's diabetes requires careful monitoring due to prior corticosteroid use, necessitating possible adjustments in her diabetes management plan. The patient was advised that non-pharmacological approaches are being prioritized given the limited response to injections and associated risks of hyperglycemia. These considerations guide the comprehensive approach to addressing her multifactorial pain complaints. Patient was informed and verbally consented to the use of an ambient scribe for clinic note documentation during this visit. Discussion Notes I discussed with the patient the rationale for pursuing a temporary saphenous nerve stimulator as an alternative to repeated cortisone injections, emphasizing the risk of exacerbating hyperglycemia due to corticosteroid use. The anticipated benefit is pain relief without pharmacological complications inherent with steroids. Following the approval from insurance, we plan to initiate this treatment, first on the left knee, with potential future application on the right knee based on its efficacy. The patient verbalized understanding and agreed to this approach. We also reviewed the importance of monitoring her diabetes status in relation to any adjustments needed, highlighting the collaborative decision-making process. Patient Instructions - Await insurance approval for nerve stimulator therapy. - Continue elevating legs at night for pain management. - Monitor blood sugar levels, alerting for symptoms of hyperglycemia. - Plan for potential adjustment in diabetes medication if required. - Coordinate follow-up visits with daughter for assistance in understanding treatment details. - Return to clinic should symptoms persist or worsen. Coding Level of Care Code Est Pt Level 4 (48945) Diagnoses Bilateral knee pain M25.561; M25.562 Type 2 diabetes mellitus with diabetic polyneuropathy, with long-term current use of insulin E11.42; Z79.4 Diabetes mellitus terminal block assembler insulin use: with terminal block assembler use
[2025-01-20 10:30] VITALS: BP 175/77; PULSE 97; RESP 16; O2SAT 98; BMI 29.9
== END 2025-01-20 10:59 | disposition home or self-care (01) ==
LOC: HO.PMC 10:25
PROVIDERS: PCP Internal Medicine; Visit Provider Internal Medicine
DX: M25.561 Pain in right knee (principal); M25.562 Pain in left knee; E11.42 Type 2 diabetes mellitus with diabetic polyneuropathy; Z79.4 Long term (current) use of insulin
CPT/HCPCS: 99214

== ENCOUNTER → 2025-01-20 10:25 | Outpatient (BNVA) | payer OTHER, SELFPAY | PROVIDERS: PCP Internal Medicine; Visit Provider Internal Medicine | DX: M25.561 Pain in right knee (principal); M25.562 Pain in left knee; E11.42 Type 2 diabetes mellitus with diabetic polyneuropathy; Z79.4 Long term (current) use of insulin | CPT/HCPCS: 99212 ==

== ENCOUNTER 2025-01-29 13:05 | Outpatient (AMB) | payer OTHER, SELFPAY ==
[2025-01-29 13:11] VITALS: BP 128/76; PULSE 81; O2SAT 98; BMI 29.9
--- NOTE | 2025-01-29 13:11 | A.OFFVIS_ITS ---
Vital Signs 01/29/25 13:11 Height 5 ft 4 in Weight 174 lb 2.643 oz BMI 29.9 BP 128/76 Blood Pressure Location Rt brachial Position Sitting Pulse 81 Pulse Source Pulse Oximeter Pulse Oximetry (%) 98 Oxygen Delivery Method Room Air Intake Visit Reasons: Type 2 DM Intake Note: Patient presents today for a follow-up on Type 2 Diabetes Mellitus: Last Diabetic eye exam was on: 07/05/2024 Last Podiatry exam was on: Does not see a Composition Mixer Most recent HbA1c: 7.6%, 12/28/2024 Random Glucose- 148 mg/dL, Today Sapphire Stylus Grinder Required: No Accompanied by: Self / Same As Patient Allergies GEL ELECTRODES Allergy (Mild, Uncoded 01/29/25 13:19) RASH Medication List - Last Reconciled 01/29/25 by Darcy Mason PA-C acetaminophen (Tylenol Extra Strength) 500 mg PO Q6H PRN alcohol swabs pad topical amlodipine 2.5 mg PO DAILY aspirin 81 mg PO DAILY atenolol 50 mg PO DAILY atorvastatin 40 mg PO DAILY@1700 blood sugar diagnostic (FreeStyle Lite Strips) DIRECTED 4 TIMES A DAY mjbsfjopsk-psmbpbktsfcxy-mpqw 50-300-40 mg (Fioricet) 1 cap PO Q8H PRN cholecalciferol (vitamin D3) 50 mcg PO DAILY docusate sodium (Colace) 100 mg PO BID empagliflozin (Jardiance) 10 mg PO QAM ferrous sulfate 325 mg PO DAILY flash glucose scanning reader (FreeStyle Marty 2 Hale) As directed flash glucose sensor (FreeStyle Marty 2 Sensor kit) DIRECTED CHANGE EVERY 14 DAYS gabapentin 300 mg PO BID glucagon (Gvoke HypoPen 2-Pack) 1 mg (0.2 mL) subcut ONCE insulin glargine U-300 conc (Toujeo Max U-300 SoloStar) 50 units (0.1667 mL) subcut BEDTIME insulin lispro (Admelog SoloStar U-100 Insulin lispro) 15 u for small meals, 15 u for large, + 2 units for bg>200, + 3 units for BG >250, + 4 units bg >300mg/dl. Of note..for very light meal use only 6 units. subcut 3 times a day; 30 days lisinopril 40 mg PO DAILY metformin 500 mg PO BID 90 days pantoprazole (Protonix) 40 mg PO DAILY pen needle, diabetic As directed semaglutide (Ozempic) 2 mg (0.75 mL) subcut QWEEK sucralfate 1 g PO TID sumatriptan succinate mg PO HPI HPI Type 2 DM: Details: Patient is a 64 yo female with DM type 2 diagnosed 2009, who presents for visit for follow up management of diabetes . She last saw Dr. Wray in March. Past medical history: HTN, HLD. fibromyalgia, ostearthritis, DARIEL, neuropathy Diabetes medications: Ozempic 2 mg Qwkly, Lantus 45 units, Humalog 10 units with meals, metformin 500 mg twice a day and jardiance 25 mg. -she is not taking Jardiance. She states she does not know how long she has been off of this. -she is not always consistent with her Humalog dosing. She states that her blood sugars have been a little bit elevated more than the baseline because it was the holidays and she had many dietary indiscretions. She states that she also had a cortisone injection in that caused her blood sugars to go up. She does not want to make many adjustments to her regimen as she feels that she will be better starting in the new year. -she is off of invokana due to insurance reasons -she does not like taking higher doses of metformin it causes stomach upset. Blood glucose monitoring: Marty reader review shows glucose is in target range 54% of the time with 46% hyperglycemia and 0% hypoglycemia. Hypoglycemia: happens daily after dinner Symptoms of shakiness and sweatiness. 4 oz of juice or 2 tb sugar or glucose tabs. Hyperglycemia: + urinary frequency, + nocturia (2x) , denies polydypsia She is on an PRIYA-inhibitor and statin CV: Bp today is 128/76. She is on atenolol 50 mg daily, amlodipine 2.5 mg daily and lisinopril 40 mg. Compliant with atorvastatin 40 mg GI:At baseline has constipation and states that recently with taking tramadol and her medications it feels like the constipation is worse. She does have an appointment scheduled with GI but not until November. [facility] Medical History Arthritis Anemia GI bleed Temporal headache Urinary incontinence Chronic constipation Fibromyalgia Primary osteoarthritis of knees, bilateral NAFLD (nonalcoholic fatty liver disease) Tubular adenoma of colon Essential hypertension Neuropathy Osteoarthritis DARIEL on CPAP Upper GI bleed Hepatomegaly History of alcohol abuse Stroke Depression Anxiety Hyperlipidemia LDL goal <70 Obesity with body mass index of 30.0-39.9 Type 2 diabetes mellitus with diabetic polyneuropathy Surgical History History of temporal artery biopsy Hx of esophagogastroduodenoscopy Hx of colonoscopy Family History Father Diabetes Mother Hypertension Daughter Breast cancer Ovarian cancer Social History Household Members: Family Household Members Other:: adult child and grandchild Are you a primary care transition manager to a significant other at home: No Do you presently have visiting nurse or other home services: No Alcohol intake: former Patient Tobacco Use Status: Former Tobacco user Years Smoked: quit 10 years ago Current occupational status: disabled Current occupation: rt handed Physical Exam Vital Signs: Last Vital Signs Pulse 81 01/29/25 13:11 BP 128/76 01/29/25 13:11 Pulse Ox 98 01/29/25 13:11 Oxygen Delivery Method Room Air 01/29/25 13:11 BMI result Body Mass Index 29.9 Const Orientation/consciousness: patient oriented x3 Neck Neck: Yes no lymphadenopathy Thyroid: Thyroid normal Carotids: no bruits Resp Auscultation: clear to auscultation bilaterally Cardio Rate: regular rate Rhythm: regular rhythm Heart sounds: S1 normal heart sound present and S2 normal heart sound present Peripheral pulses: dorsalis pedis present Neuro General: patient oriented x3, gait normal and no focal motor deficits Extrem Other: Monofilament sensation absent bilaterally. Vibratory sensation absent bilaterally. Skin intact. General: Yes normal to inspection Results Reviewed Results Reviewed: Laboratory Last Values Glucose (Clinic) 148 mg/dL (60-115) H 01/29/25 13:15 Laboratory Tests 12/28/24 01/29/25 08:00 13:15 Estimated GFR > 60 Glucose (Clinic) 148 H Estimat Average Glucose 171 Hemoglobin A1c % 7.6 H Triglycerides 162 H Cholesterol 147 LDL Cholesterol, Calc 77 HDL Cholesterol 38 L Assessment & Plan Assessment & Plan (1) Type 2 diabetes mellitus with diabetic polyneuropathy: Code(s): E11.42 - Type 2 diabetes mellitus with diabetic polyneuropathy Category: Medical Qualifiers: Diabetes mellitus agronomy location manager insulin use: with nursing home use Qualified Code(s): E11.42 - Type 2 diabetes mellitus with diabetic polyneuropathy; Z79.4 - prison (current) use of insulin Plan: Discussed the importance of regular foot checks. She states that her daughter does this for her. At this point she can not see a nursing faculty because she is limited by location proximity to her house. She says that she is going to look into this and let me know if there is someone else that she would be able to see that would work with her transportation. We will switch from Lantus to Toujeo as she does not want to split her Lantus dose and states that she will probably forget to take it twice a day. Increase to 50 units. Discussed the importance of compliance of the Humalog. We will take 10 units 3 times a day with meals. Restart Jardiance. Continue Ozempic. We discussed upgrading from the Marty 2 to the 3+. We discussed that she would be a good candidate for this as her blood sugars very uncontrolled with large fluctuations. This was ordered for her today. (2) Hyperlipidemia LDL goal <70: Code(s): E78.5 - Hyperlipidemia, unspecified Category: Medical Plan: Continue atorvastatin (3) Elevated total protein: Code(s): R77.8 - Other specified abnormalities of plasma proteins Category: Medical Plan: We will recheck prior to this appointment (4) Essential hypertension: Code(s): I10 - Essential (primary) hypertension Category: Medical Plan: Continue current regimen Orders: Orders Liver Panel Today E11.42 - Type 2 diabetes mellitus with diabetic polyneuropathy, E78.5 - Hyperlipidemia, unspecified, I10 - Essential (primary) hypertension, R77.8 - Other specified abnormalities of plasma proteins, Z79.4 - prison (current) use of insulin Basic Metabolic Panel Today E11.42 - Type 2 diabetes mellitus with diabetic polyneuropathy, E78.5 - Hyperlipidemia, unspecified, I10 - Essential (primary) hypertension, R77.8 - Other specified abnormalities of plasma proteins, Z79.4 - prison (current) use of insulin Medications: New insulin glargine U-300 conc (Toujeo Max U-300 SoloStar) 50 units (0.1667 mL) subcut BEDTIME 6 mL 4RF blood-glucose sensor (FreeStyle Marty 3 Plus Sensor device) Use daily As directed to monitor glucose 2 ea 5RF E08.29 - Diabetes mellitus due to underlying condition with other diabetic kidney complication, R80.9 - Proteinuria, unspecified, Z79.4 - prison (current) use of insulin empagliflozin (Jardiance) 10 mg PO QAM 90 tabs 0RF Refilled insulin lispro (Admelog SoloStar U-100 Insulin lispro) 15 u for small meals, 15 u for large, + 2 units for bg>200, + 3 units for BG >250, + 4 units bg >300mg/dl. Of note..for very light meal use only 6 units. subcut 3 times a day; 30 days 30 mL 6RF semaglutide (Ozempic) 2 mg (0.75 mL) subcut QWEEK 3 mL 5RF flash glucose sensor (FreeStyle Marty 2 Sensor kit) DIRECTED CHANGE EVERY 14 DAYS 2 kits 6RF insulin lispro (Admelog SoloStar U-100 Insulin lispro) 15 u for small meals, 15 u for large, + 2 units for bg>200, + 3 units for BG >250, + 4 units bg >300mg/dl. Of note..for very light meal use only 6 units. subcut 3 times a day; 30 days 30 mL 6RF metformin 500 mg PO BID 90 days 180 tabs 2RF Discontinued insulin glargine (Lantus Solostar U-100 Insulin) Discontinued Reason: Doctor's Order 50 units (0.5 mL) subcut BEDTIME 15 mL 4RF empagliflozin (Jardiance) Discontinued Reason: Doctor's Order 25 mg PO QAM 90 tabs 2RF Coding Level of Care Code Est Pt Level 4 (89057) Complex EM visit Add On G2211 Diagnoses Type 2 diabetes mellitus with diabetic polyneuropathy, with long-term current use of insulin E11.42; Z79.4 Diabetes mellitus nursing home insulin use: with nursing home use Hyperlipidemia LDL goal <70 E78.5 Elevated total protein R77.8 Essential hypertension I10
[2025-01-29 13:28] LABS: Glucose, Whole Blood 148 mg/dL (60-115)
== END 2025-01-29 14:00 | disposition home or self-care (01) ==
LOC: HO.ENCR 13:06
PROVIDERS: PCP Internal Medicine; Visit Provider Physician Assistant
DX: E11.42 Type 2 diabetes mellitus with diabetic polyneuropathy (principal); Z79.4 Long term (current) use of insulin; E78.5 Hyperlipidemia, unspecified; R77.8 Other specified abnormalities of plasma proteins; I10 Essential (primary) hypertension

== ENCOUNTER → 2025-01-29 13:05 | Outpatient (BNVA) | payer OTHER, SELFPAY | PROVIDERS: PCP Internal Medicine; Visit Provider Physician Assistant | DX: E11.42 Type 2 diabetes mellitus with diabetic polyneuropathy (principal); E78.5 Hyperlipidemia, unspecified; R77.8 Other specified abnormalities of plasma proteins; I10 Essential (primary) hypertension; Z79.4 Long term (current) use of insulin | CPT/HCPCS: 82947; 99212 ==

== ENCOUNTER 2025-02-10 09:13 | Outpatient (REF) | payer OTHER, SELFPAY ==
--- OUTSIDE RECORDS SUMMARY | 2025-02-10 09:51 | XMS_ITS ---
Author Organization Mal Yin MD Address [address] [place], [place] [id number] Care Team Providers Care Electric Power Superintendent Name Role Phone Mal Yin Primary Care Provider [phone] REASON FOR VISIT Tamiflu Encounters Encounter Location Date Provider Diagnosis Mal Yin MD [address] [place], [place] [phone] 12/17/2024 Mal Yin Plan Of Treatment Next Appt Details Provider Name:Mal quispe, 06/25/2025 08:00:00 AM, [address] [place] [address], [address] [place] [address], [phone], Provider Name:Mal George ieana, 07/02/2025 01:30:00 PM, [address] [place] [address], [address] [place] [address], [phone], Provider Name:Mal George ieana, 12/28/2025 08:00:00 AM, [address] [place] [address], [address], [phone], Provider Name:Mal quispe, 01/04/2026 02:30:00 PM, [address] [place] [address], [address], [phone], Progress Notes * Danie CLINEOB:[birth year] (64 yo F)Acc No.[id number]:12/17/2024 Patient:?Suzy CLINEdavion phong :1960???Age:64 Y???Sex:Female Address:[address] [place] [address], [place] [address], [place], [address] * true * Date:? Generated for Erick kim/Scott/eTransmitting on:?02/10/2025 09:51 AM EDT
--- OUTSIDE RECORDS SUMMARY | 2025-02-10 09:51 | XMS_ITS | Clinical Summary ---
Author Organization [facility] Address [address] [address] Care Team Providers Care Lead Manufacturing Engineering Tech Name Role Phone Mal Yin MD Primary [...] Diabetes: Visual Foot Exam 02/06/2022 Influenza Vaccine (Season Ended) 2025 Hepatitis B Vaccine Aged Out No longe r eligible based on patient's age to complete this topic Insurance [place] Care Teams Lead Manufacturing Engineering Tech Relationship Specialty Start Date End Date Mal Yin MD [address] [place] [address] [id number] [place], [place] PCP - General Internal Medicine 12/20/21
--- OUTSIDE RECORDS SUMMARY | 2025-02-10 09:51 | XMS_ITS ---
Author Organization Mal Yin MD Address [address] [place], [place] [id number] Care Team Providers Care Document Processor Name Role Phone Mal Yin Primary Care Provider [phone] Allergies No Known Allergies Results Component Value Reference Range Notes Calcium Reviewed date:12/31/2024 04:05:15 PM Interpretation: Performing Lab:[facility], [address] [place] [id number] Notes/Report: Calcium 9.2 8.4-10.2 mg/dL REASON FOR VISIT ANNUAL EXAM, Repeat Calcium Medications Medication SIG (Take, Route, Frequency, Duration) Notes Start Date End Date Status TRUEplus Lancets 28G - 1 test 3 times pe r day 3 times for 30 days Active DULoxetine HCl 30 MG 1 capsule Orally Tw ice a day for 30 days Active tiZANidine HCl 2 MG 1 tablet as needed Orally Three times a day Active Vitamin C 250 MG 1 tablet Orally Once a day Active PenTips 31G X 5 MM 1 sub q 4 times per day for 30 days Active Mapap 500 MG 2 capsules as needed Orally every 6 hrs Not-Taking Gabapentin 300 MG 1 capsule Orally Twi ce a day Active SUMAtriptan Succinate 50 MG 1 tablet at least 2 hours between doses as needed Orally Twice a day Active Diprolene AF 0.05 % 1 application to affected area Externally Once a day 11/25/2018 Not-Taking Ketoconazole 2 % Externally No t-Taking Oseltamivir Phosphate 75 MG 1 capsule Orally Twice a day for 5 day(s) 12/15/2024 Active Lisinopril 40 MG TAKE 1 TABLET BY MANDI TH EVERY DAY for 90 Active D3 50 MCG (1999 UT) TAKE 1 TABLET BY MANDI TH DAILY for 90 Active [facility]S Prep 70 % DIRECTED ON SKIN 4 TIMES PER DAY 90 DAYS for 90 Active Lidocaine HCl 4 % as directed External ly at night for 30 days 01/10/2021 Not-Taking Ferrous Sulfate 325 (65 Fe) MG TAKE 1 TABLET BY MOUTH EVERY DAY for 90 Active Sucralfate 1 GM TAKE 1 TABLET BY MANDI TH 3 TIMES A DAY ON AN EMPTY STOMACH FOR 30 DAYS for 30 Active Atenolol 50 MG TAKE 1 TABLET BY MANDI TH EVERY DAY for 90 Active Spironolactone-HCTZ 25-25 MG TAKE 1 TABLET BY MOUTH EVERY DAY for 90 Active Aspirin Low Dose 81 MG TAKE 1 TABLET BY MOUTH EVERY DAY for 90 Active GlucaGen HypoKit 1 MG as directed Inject ion as needed Active Lantus SoloStar 100 UNIT/ML 50 units Subcutaneous once a day Active traMADol HCl 50 MG 1 tablet as needed Orally Once a day Active Admelog SoloStar 100 UNIT/ML as directed Subcutaneous -15 18 units before meals three times per day total 75 units per day Active Fioricet 50-300-40 MG 1 capsule as neede d Orally every 4 hrs Active Triamcinolone Acetonide 0.1 % APPLY DAILY TO SKIN EVERY DAY FOR 14 DAYS for 60 Active Atorvastatin Calcium 40 MG 1 tablet Orally Once a day Active BD Pen Needle Kelsey 2nd Gen 32G X 4 MM USE DIRECTED 4 TIMES A DAY for 30 Active metFORMIN HCl 500 MG 2 tablet with meals Orally Twice a day Active Ozempic (0.25 or 0.5 MG/DOSE) 2 MG/3ML 4mg/3ml 0.75 once a week Active FreeStyle Lite Test - USE DIRECTED TO TEST BLOOD SUGAR 3 TIMES A DAY BEFORE MEALS for 30 Active Freestyle Test Strips to test blood suga r invitro three times day before meals for 30 days Active Omeprazole 40 MG 1 capsule 30 minutes before morning meal Orally Once a day 04/11/2020 Not-Taking Social History Tobacco Use: Social History Observation Description Date Details (start date - stop date) Former Smoker NA - NA Tobacco Use/Smoking Question Answer Notes Patient is a former smoker How long has it been since y ou last smoked? > 10 years Additional Findings: Tobacco Non-User Fo rmer smoker, currently using no form of tobacco Alcohol Screen Question Answer Notes Did you have a drink containing alcohol in the p ast year? No Points 0 Interpretation Negative Vital Signs Blood pressure systolic 132 mm Hg 12/31/19 25 Blood pressure diastolic 64 mm Hg 025 Height 60 in 12/31/2024 Weight 175 lbs 12/31/2024 BMI 34.17 kg/m2 12/31/2024 Encounters Encounter Location Date Provider Diagnosis Mal Yin MD [address] [place], [place] [id number] 12/31/2024 Mal Yin Hypercalcemia E83.52 ; Annual physical exam Z00.00 ; Type 2 diabetes, controlled, with neuropathy E11.40 ; Essential hypertension I10 ; Vitamin D deficiency E55.9 and Depression screening Z13.31 Assessments Encounter Date Diagnosis (ICD Code) Assessment Notes Treatment Notes Treatment Clinical Notes Section Notes 12/31/2024 Hypercalcemia (ICD-10 - E83.52) pending labs 12/31/2024 Annual physical exam (ICD-10 - Z00.00) labs reviewed and discussed with patient 12/31/2024 Type 2 diabetes, controlled, with neuropathy (ICD-10 - E11.40) stable, will continue current regiment 12/31/2024 Essential hypertension (ICD-10 - I10) stable, will continue current regiment 12/31/2024 Vitamin D deficiency (ICD-10 - E55.9) doing well, will continue current regiment 12/31/2024 Depression screening (ICD-10 - Z13.31) negative screen Plan Of Treatment Treatment Notes Assessment Notes Hypercalcemia pending labs Annual physical exam labs reviewed and d iscussed with patient Type 2 diabetes, controlled, with neurop athy stable, will continue current regiment Essential hypertension stable, will cont inue current regiment Vitamin D deficiency doing well, will co ntinue current regiment Depression screening negative screen Next Appt Details Follow Up: 6 Months, Reason: Provider Name:Mal quispe, 06/25/2025 08:00:00 AM, [address] [place] [address] Drive, [address], [place], [place], [id number], Provider Name:Mal quispe, 07/02/2025 01:30:00 PM, [address], [address], [place], [id number], Provider Name:Mal George jose enrique, 12/28/2025 08:00:00 AM, [address], [address], [place], [id number], Provider Name:Mal George jose enrique, 01/04/2026 02:30:00 PM, [address], [address], [place], [id number], Progress Notes * Danie CLINEOB:[birth year] (64 yo F)Acc No.[id number]:12/31/2024 Progress Notes Patient:?CLINEAnntia KOENIG phong Provider:?Mal Yin MD :1960???Age:64 Y???Sex:Female D ate:12/31/2024 Address:[address] [place] [address], [address] Subjective: * Chief Complaints: * ???ANNUAL EXAMRepeat Calcium * HPI: ???Depression Screening:?PHQ-9?Little interest or pleasure in doing things?Not at all,?Feeling down, depressed, or hopeless?Not at all,?Trouble falling or staying asleep, or sleeping too much?Not at all,?Feeling tired or having little energy?Not at all,?Poor appetite or overeating?Not at all,?Feeling bad about yourself or that you are a failure, or have let yourself or your family down?Not at all,?Trouble concentrating on things, such as reading the newspaper or watching television?Not at all,?Moving or speaking so slowly that other people could have noticed; or the opposite, being so fidgety or restless that you have been moving around a lot more than usual?Not at all,?Thoughts that you would be better off or of hurting yourself in some way?Not at all,?Total Score?0.?Interpretation and Intervention?Depression Screening Findings?Negative,?Follow-Up for Depression?: review of PHQ-9 found negative result, no follow-up needed.?Communication Needs:?Communication Needs?Does the patient have a hearing impairment?No,?Does the patient have a vision impairment??Yes,?If yes, what is the vision impairment??Glasses,?Does the patient have a cognition impairment??No.?Fall Risk:?History?Have you had any falls with injury in the past year??No,?Have you had two or more falls in the past year??No.?SDOH Questions:?SDOH Questions?In the past year have you been worried about losing housing??No,?In the past year have you or any family members you live with been unable to get any of the following when it was really needed? Check all that apply:?None.?Symptom(s):? patient is a 64 yo female here for yearly? evaluation with review of recent labs and follow up of chronic issues. . every month is getting a shot of cortisone in various joints. * ROS:?General/Constitutional:?Change in appetite?denies.?Chills?denies.?Fever?denies.?Ophthalmologic:?Blurred vision?denies.?Discharge?denies.?Pain?denies.?ENT:?Decreased hearing?denies.?Sore throat?denies.?Swollen glands?denies.?Endocrine:?Cold intolerance?denies.?Excessive thirst?denies.?Heat intolerance?denies.?Weight loss?denies.?Respiratory:?Cough?denies.?Shortness of breath at rest?denies.?Shortness of breath with exertion?denies.?Wheezing?denies.?Cardiovascular:?Chest pain at rest?denies.?Chest pain with exertion?denies.?Irregular heartbeat?denies.?Shortness of breath?denies.?Gastrointestinal:?Abdominal pain?denies.?Change in bowel habits?denies.?Diarrhea?denies.?Nausea?denies.?Rectal bleeding?denies.?Vomiting?denies .?Genitourinary:?Blood in urine?denies.?Difficulty urinating?denies.?Frequent urination?denies.?Urinary incontinence?Denies.?Musculoskeletal:?Painful joints?denies.?Weakness?denies.?Skin:?Dry skin?denies.?Itching?denies.?Denies?Mole(s),? changes in moles, new moles or any lesions of concern.?Denies?Photosensitivity.?Rash?denies.?Neurologic:?Dizziness?denies.?Fainting?denies.?Headache?denies.? * Medical History:? * Surgical History:? * Hospitalization/Major Diagno stic Procedure:? * Family History:?Father: dece ased.?Mother: .?3 brother(s) . 3 daughter(s) . .? Father alcoholic, no mental illness in the family Father liver Disease Mother Septicemia. * Social History:?Tobacco Use:?Tobacco Use/Smoking?Patient is a?former smoker,?How long has it been since you last smoked??> 10 years,?Additional Findings: Tobacco Non-User?Former smoker, currently using no form of tobacco.?Drugs/Alcohol:?Alcohol Screen?Did you have a drink containing alcohol in the past year??No,?Points?0,?Interpretation?Negative.?Miscellaneous:?Caffeine: yes, frequency:, 1-2 cups per day. Children: yes. Community involvements: no. Exercise: no. Home smoke detector use: yes. Housing: renting. Living with: family. Marital status: single. Occupation: weeks/months/years, unemployed. Pets: cats: dogs:2 dogs. Travel outside of the [place]: no. * Medications:?TakingGabapenti n 300 MG Capsule 1 [...] 1 sub q 4 times per day FreeStyle Lite Test - Strip USE DIRECTED TO TEST BLOOD SUGAR 3 TIMES A DAY BEFORE MEALS Freestyle Test Strips to test blood sugar invitro three times day before meals Triamcinolone Acetonide 0.1 % Cream APPLY DAILY TO SKIN EVERY DAY FOR 14 DAYS Atorvastatin Calcium 40 MG Tablet 1 tablet Orally Once a day BD Pen Needle Kelsey 2nd Gen 32G X 4 MM Miscellaneous USE DIRECTED 4 TIMES A DAY metFORMIN HCl 500 MG Tablet 2 tablet with meals Orally Twice a day Ozempic (0.25 or 0.5 MG/DOSE) 2 MG/3ML Solution Pen-injector 4mg/3ml 0.75 once a week GlucaGen HypoKit [...] Tablet TAKE 1 TABLET BY MOUTH DAILY Oseltamivir Phosphate 75 MG Capsule 1 capsule Orally Twice a day Lisinopril 40 MG Tablet TAKE 1 TABLET BY MOUTH EVERY DAY CVS Prep 70 % Pad DIRECTED ON SKIN 4 TIMES PER DAY 90 DAYS Taking Gabapentin 300 MG Capsule 1 capsule [...] sub q 4 times per day Taking FreeStyle Lite Test - Strip USE DIRECTED TO TEST BLOOD SUGAR 3 TIMES A DAY BEFORE MEALS Taking Freestyle Test Strips to test blood sugar invitro three times day before meals Taking Triamcinolone Acetonide 0.1 % Cream APPLY DAILY TO SKIN EVERY DAY FOR 14 DAYS Taking Atorvastatin Calcium 40 MG Tablet 1 [...] needed Taking Lantus SoloStar 100 UNIT/ML Solution Pen- injector 50 units Subcutaneous once a day Taking Admelog SoloStar 100 UNIT/ML Solution Pen-injector as [...] TAKE 1 TABLET BY MOUTH DAILY Taking Oseltamivir Phosphate 75 MG Capsule 1 capsule Orally Twice a day Taking Lisinopril 40 MG Tablet TAKE 1 TABLET BY MOUTH EVERY DAY Taking CVS Prep 70 % Pad DIRECTED ON SKIN 4 TIMES PER DAY 90 DAYS Not-Taking/PRNOmeprazole 40 MG Capsule Delayed Release 1 capsule 30 minutes before morning meal Orally Once a day Lidocaine HCl 4 % Pad as directed Externally at night Diprolene AF 0.05 % Cream 1 application to affected area Externally Once a day Ketoconazole 2 % Shampoo Externally Mapap 500 MG Capsule 2 capsules as needed Orally every 6 hrs Medication List reviewed and reconciled with the patientNot- Taking/PRN Omeprazole 40 MG Capsule Delayed Release 1 capsule 30 minutes before morning meal Orally Once a day Not-Taking/PRN Lidocaine HCl 4 % Pad as directed Externally at night Not-Taking/PRN Diprolene AF 0.05 % Cream 1 application to affected area Externally Once a day Not-Taking/PRN Ketoconazole 2 % Shampoo Externally Not-Taking/PRN Mapap 500 MG Capsule 2 capsules as needed Orally every 6 hrs Medication List reviewed and reconciled with the patient * Allergies:?N.K.D.A.yes[Aller gies Verified] Objective: * Vitals:?Ht: 60, Wt: 175, BMI :34.17, BP:132/64, Wt-k.38. * ???Past Orders: ???Lab:Microalbumin, Random (Order Date - 12/28/2024) (Collection Date & Time - 12/28/2024 08:00 AM) ? Value Reference Range ?Creatinine Urine 211.98 - m g/dL ?Microalbumin Urine 105.0 - mg/L ?Microalbum Creatinine Ratio Ur 49.5 H <30 - ug/mg cr ???Lab:Hemoglobin A1c (Order Date - 12/28/2024) (Collection Date & Time - 12/28/2024 08:00 AM) ? Value Reference Range ?Hemoglobin A1c % 7.6 H <6. 0 - % ?Estimated Average Glucose 171 - mg/dL ???Lab:Complete Blood Count Auto Diff (Order Date - 12/28/2024) (Collection Date & Time - 12/28/2024 08:00 AM) ? Value Reference Range ?White Blood Count 7.6 4. 8-10.8 - X10*3/uL ?Red Blood Count 4.20 4.20 -5.50 - X10*6/uL ?Hemoglobin 13.6 12.0-16.0 - g/dl ?Hematocrit 41.3 37.0-47.0 - % ?Mean Corpuscular Volume 98.3 H 80.0-98.0 - fL ?Mean Corpuscular Hemoglobin 32.4 27.0-33.0 - pg ?Mean Corpuscular HGB Conc 32.9 31.0-35.0 - g/dl ?Red Cell Distribution Width 13.3 11.0-16.0 - % ?Platelet Count 277 160-4 00 - X10*3/uL ?Mean Platelet Volume 12.1 9.4-12.3 - fL ?Neutrophils Percent Auto 63.5 45-73 - % ?Imm Gran Pct Auto 0.7 H 0. 0-0.4 - % ?Lymphocytes Percent Auto 23.6 20-40 - % ?Monocytes Percent Auto 10.8 2-11 - % ?Eosinophils Percent Auto 1.1 0-4 - % ?Basophils Percent Auto 0.3 0-2 - % ?NRBC Pct Auto 0.0 0.0-0. 2 - /100WBC ?Neutrophils Absolute Auto 4.8 2.0-8.3 - x10*3/uL ?Imm Gran Abs Auto 0.05 H 0. 00-0.03 - X10*3/uL ?Lymphocytes Absolute Auto 1.8 1.2-4.9 - X10*3/uL ?Monocytes Absolute Auto 0.8 0.1-1.2 - X10*3/uL ?Eosinophils Absolute Auto 0.1 0.0-0.4 - X10*3/uL ?Basophils Absolute Auto 0.0 0.0-0.2 - X10*3/uL ?NRBC Abs Auto 0.000 0.0-0. 012 - X10*3/uL ???Lab:Comprehensive [facility]. P darren Fast (Order Date - 12/28/2024) (Collection Date & Time - 12/28/2024 08:00 AM) ? Value Reference Range ?Sodium 141 135-145 - mmo l/L ?Bilirubin Total 0.6 0.0- 1.0 - mg/dL ?Aspartate Amino Transferase 26 5-31 - U/L ?Alanine Aminotransferase 9 0-31 - U/L ?Total Protein 8.6 H 6.5-8. 0 - g/dL ?Albumin Level 4.3 3.5-5. 0 - g/dL ?Alkaline Phosphatase 82 39-117 - U/L ?Potassium 3.9 3.3-5.1 - mmol/L ?Chloride 100 96-108 - mm ol/L ?Carbon Dioxide 31 H 22-29 - mmol/L ?Anion Gap 14 12-20 - ?Blood Urea Nitrogen 17 H 9-16 - mg/dL ?Creatinine 0.77 0.5-1.4 - mg/dL ?Estimated Glomerular Filt Rate > 60 - ?Glucose Fasting 153 H 60-9 9 - mg/dL ?Calcium 10.8 H 8.4-10.2 - m g/dL ???Lab:UA CC w/rflx Micro + Cult (Order - 12/28/2024) (Collection Date & Time - 12/28/2024 08:00 AM) ? Value Reference Range ?Color Urine Yellow - ?Appearance Urine Clear - ?PH 6.5 5.0-9.0 - ?Glucose Urine UA Negative Neg ative - mg/dL ?Urine Blood Negative Negative - ?Specific [place] - Urine 1.020 1.005-1.025 - ?Urine Protein Trace Neg-Tr briseida - mg/dL ?Urine Ketones Negative Negati ve - mg/dL ?Nitrite Urine Negative Negati ve - ?Leukocyte Esterase Urine Negative Negative - ???Lab:Lipid Panel (Order Da te 12/28/2024) (Collection Date & Time - 12/28/2024 08:00 AM) ? Value Reference Range ?Triglycerides 162 H <150 - mg/dL ?Cholesterol 147 <200 - m g/dL ?LDL Cholesterol Calculated 77 <100 - mg/dL ?HDL Cholesterol 38 L >40 - mg/dL ???Lab:Vitamin D 25-OH Total (Order 12/28/2024) (Collection Date & Time - 12/28/2024 08:00 AM) ? Value Reference Range ?Vitamin D 25-OH Total 32.0 >30 - ng/mL * Examination: ???General Examination: ?GENERAL APPEARANCE:?well developed, well nourished, in no acute distress.?HEAD:?normocephalic, atraumatic.?EYES:?pupils equal, round, reactive to light and accommodation, sclera non-icteric.?EARS:?normal.?ORAL CAVITY:?mucosa moist.?THROAT:?clear.?NECK/THYROID:?neck supple, full range of motion, no cervical lymphadenopathy, no bruits.?SKIN:?warm and dry, no suspicious lesions.?HEART:?regular rate and rhythm, S1, S2 normal, no murmurs.?LUNGS:?clear to auscultation bilaterally.?BREASTS:?done by clinical appeals auditor.?ABDOMEN:?soft, nontender, nondistended, bowel sounds present, normal, no organomegaly , no masses palpable.?RECTAL EXAM:?done by clinical appeals auditor.?FEMALE GENITOURINARY:?done by clinical appeals auditor.?EXTREMITIES:?no clubbing, cyanosis, or edema.?NEUROLOGIC:?nonfocal, motor strength normal upper and lower extremities, sensory exam intact.? Assessment: * Assessment: 1.?Annual physical exam - Z0 0.00 (Primary)???2.?Hypercalcemia - E83.52???3.?Type 2 diabetes, controlled, with neuropathy - E11.40???4.?Essential hypertension - I10???5.?Vitamin D deficiency - E55.9???6.?Depression screening - Z13.31??? Plan: * Treatment: 2.?Hypercalcemia?LAB: Calcium (Collection Date & Time - 12/31/2024 02:30 PM) Notes: pending labs?? 3.?Type 2 diabetes, controll ed, with neuropathy? Notes: stable, will continue current regiment?? 4.?Essential hypertension? Notes: stable, will continue current regiment?? 5.?Vitamin D deficiency? Notes: doing well, will continue current regiment?? 6.?Depression screening? Notes: negative screen?? * Procedure Codes:?88264 VENIP UNCT, ROUTINE* * Preventive Medicine:? ??Diabetes Care Plan:?Patient Lifestyle Goals?Needs to maintain diet control.?Treatment Goals?A1C< 7.?Barriers ?Needs better diet control.?Self- Managment Plan?Increase light exercise to 3 times a week for 30 minutes.?Expected Outcome?maintaining stable blood sugar levels within a target range.? ??Counseling:?Care goal follow-up plan:?Counseling for abnormal BMI provided?Yes,?Above Normal BMI Follow-up?Giving encouragement to exercise.? * Follow Up:?6 Months * * Sign off status: Completed true * Provider:?Mal Yin MD Date:?0 12/31/2024 Generated for Erick kim/Scott/Mariesmitting on:?02/10/2025 09:51 AM EDT History and Physical Notes * HPI (History of Present Illness) Category Sub-Category Detail Notes Category Not es Symptom(s) patient is a 64 yo female here for yearly evaluation with review of recent labs and follow up of chronic issues. . every month is getting a shot of cortisone in various joints Depression Screening PHQ-9 Little inte rest or pleasure in doing things: Not at all Feeling down, depressed, or hopeless: No t at all Trouble falling or staying asleep, or sl eeping too much: Not at all Feeling tired or having little energy: N ot at all Poor appetite or overeating: Not at all Feeling bad about yourself o r that you are a failure, or have let yourself or your family down: Not at all Trouble concentrating on thi ngs, such as reading the newspaper or watching television: Not at all Moving or speaking so slowly that other people could have noticed; or the opposite, being so fidgety or restless that you have been moving around a lot more than usual: Not at all Thoughts that you would be b kalyan off or of hurting yourself in some way: Not at all Total Score: 0 Interpretation and Intervention Depression Maureen vee Findings: Negative Follow-Up for Depression: : review of PH Q-9 found negative result, no follow-up needed SDOH Questions SDOH Questions In the past year have you been worried about losing housing?: No In the past year have you or any family members you live with been unable to get any of the following when it was really needed? Check all that apply:: None Fall Risk History Have you had any falls with injury i n the past year?: No Have you had two or more falls in the year?: No Communication Needs Communication Needs Does the patient have a hearing impairment: No Does the patient have a vision impairmen t?: Yes ?If yes, what is the vision impairment?: Glasses Does the patient have a cognition impair ment?: No Examination Category Sub-Category Detail Notes Category Not es General Examination GENERAL APPEARANCE: well dev eloped, well nourished, in no acute distress HEAD: normocephalic, atrau matic EYES: pupils equal, round, reactive to light and accommodation, sclera non- icteric EARS: normal THROAT: clear NECK/THYROID: neck supple, full ra nge of motion, no cervical lymphadenopathy, no bruits HEART: regular rate and rhy thm, S1, S2 normal, no murmurs LUNGS: clear to auscultatio n bilaterally ABDOMEN: soft, nontender, non distended, bowel sounds present, normal, no organomegaly , no masses palpable NEUROLOGIC: nonfocal, motor stre ngth normal upper and lower extremities, sensory exam intact SKIN: warm and dry, no savita picious lesions EXTREMITIES: no clubbing, cyanosi s, or edema BREASTS: done by clinical appeals auditor RECTAL EXAM: done by clinical appeals auditor FEMALE GENITOURINARY: done by clinical appeals auditor ORAL CAVITY: mucosa moist
--- OUTSIDE RECORDS SUMMARY | 2025-02-10 09:51 | XMS_ITS ---
Author Organization Mal Yin MD Address [address] [place], [place] [id number] Care Team Providers Care Cath Lab Technologist Name Role Phone Mal Yin Primary Care Provider Results Component Value Reference Range Notes Complete Blood Count Auto Di ff Reviewed date:12/29/2024 04:48:03 PM Interpretation: Performing Lab:[facility], [address] [place] [phone] Notes/Report: White Blood Count 7.6 4.8-10.8 X10*3/uL [...] NRBC Abs Auto 0.000 0.0-0.012 X10*3/uL [facility]. Panel Fa st Reviewed date:12/29/2024 12:54:03 PM Interpretation: Performing Lab:[address] [phone] Notes/Report: Sodium 141 135-145 mmol/L Potassium 3.9 [...] Panel Reviewed date:12/28/2024 05:26:42 PM Interpretation: Performing Lab:[address] [phone] Notes/Report: Triglycerides 162 <150 mg/dL Desirable Triglyceride: [...] Total Reviewed date:12/28/2024 05:27:09 PM Interpretation: Performing Lab:[address] [phone] Notes/Report: Vitamin D 25-OH Total 32.0 >30 [...] Random Reviewed date:12/28/2024 05:26:30 PM Interpretation: Performing Lab:[address] [phone] Notes/Report: Creatinine Urine 211.98 Microalbumin Urine 105.0 Microalbum/Creatinine Ratio Ur 49.5 <30 ug/mg cr Albumin/Creatinine Ratio Reference Ranges: Normal: < 30 ug/mg creatinine Microalbuminuria: 30 - 300 ug/mg creatinine Clinical Albuminuria: > 300 ug/mg creatinine Hemoglobin A1c Reviewed date:12/28/2024 05:17:57 PM Interpretation: Performing Lab:[facility], [address], [place] [phone] Notes/Report: Hemoglobin A1c % 7.6 <6.0 % [...] average glucose, using the formula of the M1A-Ukiazqk Average Glucose study (ADAG), Diabetes Care, Vol.31,#8, Jun. 2007 REASON FOR VISIT FASTING LABS Encounters Encounter Location Date Provider Diagnosis Mal Yin MD [address] [place] [address] [place] [phone] 12/28/2024 Mal Yin Blood tests for rout [...] Details Provider Name:Mal quispe, 06/25/2025 08:00:00 AM, [address] [place] [address], [address], [place], [place], [phone], Provider Name:Mal quispe, 07/02/2025 01:30:00 PM, [address], [address], [place], [place], [phone], Provider Name:Mal George ier, 12/28/2025 08:00:00 AM, [address], [address], [place], [place], [phone], Provider Name:Mal George ier, 01/04/2026 02:30:00 PM, [address], [address], [place], [phone], Progress Notes * CLINESuzycatarinoieDOB:[birth year] (64 yo F)Acc No.[id number]:12/28/2024 Progress Note Patient:?Suzy CLINEdavion phong Provider:?Mal Yin MD :1960???Age:64 Y???Sex:Female D ate:12/28/2024 Address:[address] [place] [address], [address] Subjective: * Chief Complaints: * ???1. FASTING [...] Time - 12/28/2024 08:00 AM) ?LAB: [facility]. Panel Fast (Collection Date & Time - [...] & Time 12/28/2024 08:00 AM) ?LAB: [facility]. Panel Fast (Collection Date & Time 12/28/2024 [...] & Time 12/28/2024 08:00 AM) ?LAB: [facility]. Panel Fast (Collection Date & Time 12/28/2024 [...] Time - 12/28/2024 08:00 AM) ?LAB: [facility]. Panel Fast (Collection Date & Time 12/28/2024 [...] Time - 12/28/2024 08:00 AM) ?LAB: [facility]. Panel Fast (Collection Date & Time 12/28/2024 08:00 AM) ?LAB: Lipid Panel (Collection Date & Time 12/28/2024 08:00 AM) ?LAB: Vitamin D 25-OH Total (Collection Date & Time 12/28/2024 08:00 AM) ?LAB: Microalbumin, Random (Collection & Time 12/28/2024 08:00 AM) ?LAB: Hemoglobin A1c (Collection Date & Time - 12/28/2024 08:00 AM) * Procedure Codes:?14457 VENIP UNCT, ROUTINE* * * The named appointment provid er may or may not be the originator of this progress note, and it is not deemed complete until electronically signed by the appointment provider. Sign off status: Pending * Provider:?Mal Yin MD Date:?0 12/28/2024 Generated for Erick kim/Scott/eTtrinysmitting on:?02/10/2025 09:51 AM EDT
[2025-02-10 10:12] LABS: Alanine Aminotransferase 7 U/L (0-31); Albumin Level 4.3 g/dL (3.5-5.0); Alkaline Phosphatase 80 U/L (39-117); Anion Gap 9 (12-20); Aspartate Amino Transferase 22 U/L (5-31); Bilirubin Direct 0.1 mg/dL (0.0-0.5); Bilirubin Total 0.3 mg/dL (0.0-1.0); Blood Urea Nitrogen 15 mg/dL (9-16); Calcium 9.4 mg/dL (8.4-10.2); Carbon Dioxide 27 mmol/L (22-29); Chloride 108 mmol/L (96-108); Estimated Glomerular Filt Rate > 60; Glucose Random 114 mg/dL (60-115); Potassium 4.1 mmol/L (3.3-5.1); Sodium 140 mmol/L (135-145); Total Protein 7.3 g/dL (6.5-8.0)
== END 2025-02-10 09:14 | disposition home or self-care (01) ==
LOC: HO.LAB 09:13
PROVIDERS: PCP Internal Medicine; Visit Provider Physician Assistant
DX: K59.09 Other constipation (principal); E66.9 Obesity, unspecified; K21.9 Gastro-esophageal reflux disease without esophagitis; R77.8 Other specified abnormalities of plasma proteins; E11.42 Type 2 diabetes mellitus with diabetic polyneuropathy; Z79.4 Long term (current) use of insulin; I10 Essential (primary) hypertension; E78.5 Hyperlipidemia, unspecified
CPT/HCPCS: 36415; 80048; 80076; 99212

== ENCOUNTER 2025-02-10 10:50 | Outpatient (AMB) | payer OTHER, SELFPAY ==
--- NOTE | 2025-02-10 11:01 | MHC.OFFVIS ---
Vital Signs 02/10/25 11:02 Height 5 ft 4 in Weight 172 lb BMI 29.5 BP 130/58 L Blood Pressure Location Lt brachial Position Sitting Pulse 84 Pulse Oximetry (%) 97 Oxygen Delivery Method Room Air Intake Visit Reasons: CHRONIC CONSTIPATION/Debbie pt Intake Note: Patient complex follow up for chronic constipation/ Debbie lov 09/10/22 Patient cc: N/V, GERD with burning sensation and swallowing discomfort and also discoon her esophagus, constipation with hard stool. Denies any other GI issues. Instructor Technical Training Required: Yes Accompanied by: Self / Same As Patient Allergies GEL ELECTRODES Allergy (Mild, Uncoded 01/29/25 13:19) RASH Medication List - Last Reconciled 02/10/25 by Lisseth Izquierdo CNP acetaminophen (Tylenol Extra Strength) 500 mg PO Q6H PRN alcohol swabs pad topical amlodipine 2.5 mg PO DAILY aspirin 81 mg PO DAILY atenolol 50 mg PO DAILY atorvastatin 40 mg PO DAILY@1700 blood sugar diagnostic (FreeStyle Lite Strips) DIRECTED 4 TIMES A DAY blood-glucose sensor (FreeStyle Marty 3 Plus Sensor device) Use daily As directed to monitor glucose hzqasdmwdu-mvhgbqddptocy-ojwb 50-300-40 mg (Fioricet) 1 cap PO Q8H PRN cholecalciferol (vitamin D3) 50 mcg PO DAILY docusate sodium (Colace) 100 mg PO BID empagliflozin (Jardiance) 10 mg PO QAM ferrous sulfate 325 mg PO DAILY flash glucose scanning reader (FreeStyle Marty 2 [place]) As directed flash glucose sensor (FreeStyle Marty 2 Sensor kit) DIRECTED CHANGE EVERY 14 DAYS gabapentin 300 mg PO BID glucagon (Gvoke HypoPen 2-Pack) 1 mg (0.2 mL) subcut ONCE insulin glargine U-300 conc (Toujeo Max U-300 SoloStar) 50 units (0.1667 mL) subcut BEDTIME insulin lispro (Admelog SoloStar U-100 Insulin lispro) 15 u for small meals, 15 u for large, + 2 units for bg>200, + 3 units for BG >250, + 4 units bg >300mg/dl. Of note..for very light meal use only 6 units. subcut 3 times a day; 30 days lisinopril 40 mg PO DAILY metformin 500 mg PO BID 90 days pantoprazole (Protonix) 40 mg PO DAILY pen needle, diabetic As directed pen needle, diabetic Use QID As directed semaglutide (Ozempic) 2 mg (0.75 mL) subcut QWEEK sucralfate 1 g PO TID sumatriptan succinate mg PO HPI HPI CHRONIC CONSTIPATION/Debbie pt: Details: Patient is a 64-year-old female with PMH of DMII, hypertension, hyperlipidemia, obesity, OA and fibromyalgia. Pt is here today for follow up on GERD. Reports her acid reflux symptoms have increased this past year. She reports she has been without pantoprazole for approximately 4 months. Shares symptoms are occurring daily upon wakening with burning pain at the epigastric region. Associated symptoms:belching, nausea, decrease appetite X 2-3 months Alleviating attempts: TUMs, milk She did seek ER care for the above symptoms 07/2024. Workup unremarkable for cardiac or acute gastrointestinal disease. She was discharged home with a prescription for sucralfate. However, stopped taking due to feeling quesy . Reports she has been consistently constipated the last year as well. She reports daily bowel movements in the morning with type 1 noted on Miles stool chart. Shares her endocrinology was helping manage given lost to follow with our department. She was prescribed MiraLax. However, stopped after 2 months due to loose stools. She reports relief with previous Docusate tablets and would like to restart those. Foods commonly consumed: Breakfast- eggs, rye or wheat bread, fruit with coffee skips lunch but will have crackers and/yogurt to take meds Dinner- fish, chicken, rice, potatoes and vegetables Before bed (2200) 1/2 peanut sandwich Endorses adequate hydration with water Patient denies: systemic symptoms, vomiting, regurgitation, unintentional wt loss, dysphasia, bladder changes, hemorrhoids or melena/hematochezia. Reports endoscopy with colonoscopy in 2019 with recommendations for repeat in 10 years [facility] Medical History Arthritis Anemia GI bleed Temporal headache Urinary incontinence Chronic constipation Fibromyalgia Primary osteoarthritis of knees, bilateral NAFLD (nonalcoholic fatty liver disease) Tubular adenoma of colon Essential hypertension Neuropathy Osteoarthritis DARIEL on CPAP Upper GI bleed Hepatomegaly History of alcohol abuse Stroke Depression Anxiety Hyperlipidemia LDL goal <70 Obesity with body mass index of 30.0-39.9 Type 2 diabetes mellitus with diabetic polyneuropathy Surgical History History of temporal artery biopsy Hx of esophagogastroduodenoscopy Hx of colonoscopy Family History Father Diabetes Mother Hypertension Daughter Breast cancer Ovarian cancer Social History Household Members: Family Household Members Other:: adult child and grandchild Are you a primary manager progressive care to a significant other at home: No Do you presently have visiting nurse or other home services: No Alcohol intake: former Patient Tobacco Use Status: Former Tobacco user Years Smoked: quit 10 years ago Current occupational status: disabled Current occupation: rt handed Physical Exam Vital Signs: Last Vital Signs Pulse 84 02/10/25 11:02 BP 130/58 L 02/10/25 11:02 Pulse Ox 97 02/10/25 11:02 Oxygen Delivery Method Room Air 02/10/25 11:02 BMI result Body Mass Index 29.5 Const General: healthy appearing, no acute distress and well developed Nutritional Appearance: well nourished Orientation/consciousness: patient oriented x3 HEENT Head: Yes normal to inspection, Yes normocephalic and Yes atraumatic Face and sinus: Yes normal facial exam Eyes General: appearance normal, both eyes and all related structures Neck Neck: Yes normal visual inspection Resp Effort & Inspection: normal respiratory effort, able to speak in complete sentences, no tracheal deviation and symmetric chest movement Auscultation: clear to auscultation bilaterally Cardio Jugular venous distension: no JVD Rate: regular rate Rhythm: regular rhythm Heart sounds: S1 normal heart sound present, S2 normal heart sound present, no gallops and no murmurs GI Inspection: Yes normal to inspection, No distended and Yes obesity Palpation (GI): Soft to palpation, not firm, nontender and No hepatosplenomegaly present Auscultation: normal bowel sounds Neuro General: patient oriented x3 Gait exam (Neuro): Normal gait present Psych Appearance: grossly normal Mental Status: mental status grossly normal Speech and movement: Normal speech and movement present Affect: normal affect Attitude: cooperative Thought process: Normal thought process present Thought content: Normal thought content present Insight: Good insight present (Psych) Judgement: Good judgement present (Psych) Results Reviewed Results Reviewed: colonoscopy 06/10/2020: Occasional diverticula throughout the colon, otherwise normal Colonoscopy findings. recommendation for repeat in 10 years EGD 06/10/2020: normal upper endoscopy findings. No evidence of esophagitis or suggestion of any Cabrera's disease. Without hiatal hernia Assessment & Plan Assessment & Plan (1) Chronic constipation: Code(s): K59.09 - Other constipation Category: Medical Plan: Shared decision-making to restart docusate tablets as previously prescribed. For now we will avoid MiraLax given reports of loose stools. Reinforced diet and lifestyle modifications to help promote regularity, including higher fiber diet and adequate hydration. (2) Obesity with body mass index of 30.0-39.9: Code(s): E66.9 - Obesity, unspecified Category: Medical Plan: BMI 29.5. Notable 16 lb weight loss in August 2024 that is attributed to change in pharmacological management for diabetes. Her weight has been stable around 172 lbs since September 2024. (3) Acid reflux: Comment: EGD 06/10/2020: normal upper endoscopy findings. No evidence of esophagitis or suggestion of any Cabrera's disease. Without hiatal hernia Code(s): K21.9 - Gastro-esophageal reflux disease without esophagitis Category: Medical Plan: Normal endoscopy as above in 2020. We will restart the pantoprazole 40 mg daily. Education on GERD prevention-Advised against heavy meals. Encouraged small frequent meals VS large meals, remaining upright after meals x 2-3 hours, avoid spicy foods/caffeine/alcohol and known triggers. Plan Follow-up in 3 months or sooner as needed Time: I spent a total of 45 minutes on the date of encounter which includes: Preparing to see the patient (reviewed previous documentation, test results and medical history) Performing a medically appropriate exam and/or evaluation Ordering medications, tests, and procedures Documenting clinical information in the health record Medications: Refilled docusate sodium (Colace) 100 mg PO BID 180 caps 0RF pantoprazole (Protonix) 40 mg PO DAILY 90 tabs 0RF Discontinued sucralfate Discontinued Reason: Patient no longer taking 1 g PO TID 90 tabs 0RF Coding Level of Care Code Established Pt Est Pt Level 3 (32539) Patient Type Established Diagnoses Chronic constipation K59.09 Obesity with body mass index of 30.0-39.9 E66.9 Acid reflux K21.9
[2025-02-10 11:02] VITALS: BP 130/58; PULSE 84; O2SAT 97; BMI 29.5
--- OUTSIDE RECORDS SUMMARY | 2025-02-10 12:37 | XMS_ITS | Patient Health Record ---
Author Organization Mal Yin MD Address [address] [place], [place] [id number] Care Team Providers Care Network Systems Engineer Name Role Phone Mal Yin Primary Care Provider Allergies No Known Allergies Results Component Value Reference Range Notes Hemoglobin A1c Reviewed date:03/24/2024 10:53:32 AM Interpretation: Performing Lab: Notes/Report: Hemoglobin A1c 6.8 Hemoglobin A1c Reviewed date:07/03/2024 01:52:19 PM Interpretation: Performing Lab: Notes/Report: Hemoglobin A1c 7.3 Complete Blood Count Auto Di ff Reviewed date:12/29/2024 04:48:03 PM Interpretation: Performing Lab:[facility], [address] [place] [phone] Notes/Report: White Blood Count 7.6 4.8-10.8 X10*3/uL [...] 0.0 0.0-0.2 /100WBC Neutrophils Absolute Auto 4.8 2.0-8. 3 x10*3/uL Imm Gran Abs Auto 0.05 0.00-0.03 X10*3/uL Lymphocytes Absolute Auto 1.8 1.2-4. 9 X10*3/uL Monocytes Absolute Auto 0.8 0.1-1.2 X10*3/uL Eosinophils Absolute Auto 0.1 0.0-0. 4 X10*3/uL Basophils Absolute Auto 0.0 0.0-0.2 X10*3/uL NRBC Abs Auto 0.000 0.0-0.012 X10*3/uL Comprehensive Norris. Panel Fa st Reviewed date:12/29/2024 12:54:03 PM Interpretation: Performing Lab:[facility], [address] [place] [phone] Notes/Report: Sodium 141 135-145 mmol/L Potassium 3.9 [...] Panel Reviewed date:12/28/2024 05:26:42 PM Interpretation: Performing Lab:[address] [phone] Notes/Report: Triglycerides 162 <150 mg/dL Desirable Triglyceride: [...] Total Reviewed date:12/28/2024 05:27:09 PM Interpretation: Performing Lab:[address] [address] Notes/Report: Vitamin D 25-OH Total 32.0 >30 [...] Random Reviewed date:12/28/2024 05:26:30 PM Interpretation: Performing Lab:[facility], [address] [place] [phone] Notes/Report: Creatinine Urine 211.98 Microalbumin Urine 105.0 Microalbum/Creatinine Ratio Ur 49.5 <30 ug/mg cr Albumin/Creatinine Ratio Reference Ranges: Normal: < 30 ug/mg creatinine Microalbuminuria: 30 - 300 ug/mg creatinine Clinical Albuminuria: > 300 ug/mg creatinine Hemoglobin A1c Reviewed date:12/28/2024 05:17:57 PM Interpretation: Performing Lab:[facility], [address] [place] [phone] Notes/Report: Hemoglobin A1c % 7.6 <6.0 % [...] average glucose, using the formula of the W2X-Eaolkzf Average Glucose study (ADAG), Diabetes Care, Vol.31,#8, Jun. 2007 Erythrocyte Sedimentation Ra te Reviewed date:03/26/2024 12:40:43 PM Interpretation: Performing Lab:[facility], [address] [place] [phone] Notes/Report: Erythrocyte Sedimentation Rate 81 0-20 MM/HR Patients with polycythemia and many hemoglobin abnormalities may have depressed sed rates whereas patients with anemia may have elevated sed rates. Glucose, finger stick Reviewed date:07/03/2024 01:45:46 PM Interpretation: Performing Lab: Notes/Report: Value 170 Calcium Reviewed date:12/31/2024 04:05:15 PM Interpretation: Performing Lab:[facility], [address] [place] [phone] Notes/Report: Calcium 9.2 8.4-10.2 mg/dL Glucose, Whole Blood Reviewed date:03/09/2024 12:30:37 PM Interpretation: Performing Lab:[facility], [address] [place] [phone] Notes/Report: Glucose, Whole Blood 118 60-115 mg/dL METER #: [id number] Testing performed [facility] , [address], [place]. CT head/brain wo con Reviewed date:03/23/2024 11:00:21 AM Interpretation:auth pending Performing Lab: Notes/Report: [address] [address] [address] Scan Report Signed Patient: Delaney Dunlap MR#: [id number] : 1960 Acct:[id number] Age/Sex: 63 / F ADM Date: 03/18/24 Loc: HO.ED Attending Dr: Ordering Physician: Yessica Matais Date of Service: 03/18/24 Procedure(s): CT head/brain wo IV con Accession Number(s): [id number] cc: Mal Yin MD; Yessica Matias EXAMINATION: [...] Parada Signed By: <Electronically signed by Dang Pardaa in OV> 03/18/24 1433 DD/ 1319 TD/TT: Cardiothoracic Anesthesia Technician: [address] [address] [address] Scan Report Signed Patient: Delaney Dunlap MR#: [id number] : 1960 Acct:[id number] Age/Sex: 63 / F ADM Date: 03/18/24 Loc: HO.ED Attending Dr: Ordering Physician: Yessica Matias Date of Service: 03/18/24 Procedure(s): CT head/brain wo IV con Accession Number(s): [id number] cc: Mal Yin MD; Yessica Matias EXAMINATION: CT HEAD WITHOUT CONTRAST CLINICAL INFORMATION: Severe grade 10 out of 10 headache COMPARISON: CT scan of brain on 07/09/2015 TECHNIQUE: Contiguous axial jony ging was performed from the skull base to vertex without intravenous administration of contrast. This CT examination was performed using dose optimization techniques as appropriate, various ly including the following: *Automated exposure control *Adjustment of mA an d/or kV according to patient size (this includes techniques or standardized protocols for targeted exams where dose is matched to indication/reason for exam; i.e. extremities or head) *Use of iterative reconstruction technique DLP: 524.08 mGy-cm FINDINGS: Cerebral s ulci and cisterns are normal. There is mild ventriculomegaly. A probably chronic f ocal right superior parietal infarction associated with dilatation of l eft central sulcus is seen. There is no midline shift, no abnormal intra- or extra- axial fluid accumulation. Greer a nd white matter differentiation is normal. Bone window images s how no evidence of skull fracture. C T/CT head/brain wo IV con IMPRESSION: 1. Interval developm ent of mild ventriculomegaly. 2. No intracranial hemorrhage or skull fracture is seen. 3. No evidence of sp briseida occupying lesion could be found. 4. Interval developm ent of a chronic appearing right superior anterior parietal cerebral infarction involving the postcentral gyrus. This was not evident on MRI o f the brain on 11/16/2013. Repeat evaluation with noncontrast MRI of t he brain is recommended. 5. The current plain CT scan of the brain shows no diagnostic evidence of acute cerebral infarction. Dictated By: Dang Parada Signed By: <Electronically signed by Dang Parada in OV> 03/18/24 1433 DD/ 1319 TD/TT: Cardiothoracic Anesthesia Technician: Glucose, Whole Blood Reviewed date:04/03/2024 12:57:06 PM Interpretation: Performing Lab:[facility], [address] [place] [phone] Notes/Report: Glucose, Whole Blood 85 60-115 mg/dL METER # : [id number] Pathology Reviewed date:04/09/2024 11:34:41 AM Interpretation:see back 04-09-2024 Performing Lab:[facility], [address] [place] [phone] Notes/Report: ----- Name: Suzy Dunlap Age/Sex: 63/F : 1960 Unit#: [id number] Attend Dr: Garrett Roy MD Re04/03/24 Status : [facility] Location: [facility] Disch: ----- SPEC : [id number] RECD : 04/03/24-125 STATUS: ROB BARR NUM: [id number] NGOZI: 04/03/24-[address] [facility] [address]: Garrett Roy MD ENTERED: 04/03/24-12 55 SP TYPE: Surgical OTHR DR: Mal Yin MD ORDERED: HE Stain/5, Gross Micro L4 Diagnosis Right temporal arter y, biopsy: Artery with mild intimal hyperplasia; otherwise within normal limits; negat laura for arteritis. Clinical History Headache, unspecified Microscopic Description Microscopic sections reviewed. Material Received Temporal artery right Gross Description Received in formalin labeled ?right temporal artery? is a 0.8 cm in length and 0.15 cm in diameter almanza-pink se gment of vessel which is bisected to reveal a central pinpoint lumen, entirely submitted i n a cassette labeled A. CEDS Copies To: Mal Yin MD [address] [facility] [address] [place] [address] Garrett Roy MD [address] [facility] [place] [address] ----- Signed (signature on file) Handy Genao MD 04/06/24 1506 ----- END OF REPORT Glucose, Whole Blood Reviewed date:06/12/2024 09:40:49 AM Interpretation: Performing Lab:[facility], [address] [place] [phone] Notes/Report: Glucose, Whole Blood 112 60-115 mg/dL METER #: [id number] Testing performed in the [facility] , [address], [facility]. Creatinine GFR POC Reviewed date:07/02/2024 05:06:45 PM Interpretation: Performing Lab:[facility], [address] [place] [address] Notes/Report: [id number] 0.84 >60 0952 DEVONAAShannan Creatinine POC 0.8 0.5-1.4 mg/dL GFR POC > 60 Chronic Kidney Disease: Estimated GFR < 60 mL/min/1.73m2 Severe Kidney Disease: Estimated GFR < 15 mL/min/1.73m2 CT angio head neck Reviewed date:07/03/2024 09:33:15 AM Interpretation: Performing Lab: Notes/Report: [address] [address] [address] Scan Report Signed Patient: Delaney Dunlap MR#: [id number] : 1960 Acct:[id number] Age/Sex: 63 / F ADM Date: 07/02/24 Loc: HO.CT Attending Dr: Jemima Davidson MD Ordering Physician: Jemima Davidson MD Date of Service: 07/02/24 Procedure(s): CT angio head neck Accession Number(s): [id number] cc: Mal Yin MD; Jemima Davidson MD EXAMINATION: CT ANGIOGRAM HEAD CT ANGIOGRAM NECK CLINICAL INFORMATION: Cerebral infarction. COMPARISON: CT head from 03/18/2024. TECHNIQUE: Initial noncontrast manager patient imaging of the head and neck was performed. Noncontrast head CT was also performed. Test bolus sequences followed by intravenous administration 70 mL of Omnipaque 350. Helical imaging was performed in the axial plane from the aortic arch to the skull vertex. Delayed postcontrast imaging of the head was also performed. The data was processed at the fiber technologist's workstation for generation of MIP sequences. [...] P1 segment is diminutive. origin of the PHARMACEUTICAL PLANT OPERATOR with robust opacification of the posterior communicating artery. Normal opacification of the distal PHARMACEUTICAL PLANT OPERATOR segments. Left Posterior Cerebral Artery: Normal P1 segment. Normal opacification of the distal PHARMACEUTICAL PLANT OPERATOR segments. Normal opacification of the superior sagittal, [...] Damien Nguyen DO 07/02/2024 03:31 PM EDT Dictated By: Jonathan Nguyen DO Signed By: <Electronically signed by Jonathan Nguyen DO in OV> 07/02/24 1531 DD/ 0956 TD/TT: 07/02/24 1015 Cardiothoracic Anesthesia Technician: BRIGITTE [address] [address] [address] Scan Report Signed Patient: Delaney Dunlap MR#: [id number] : 1960 Acct:[id number] Age/Sex: 63 / F ADM Date: 07/02/24 Loc: HO.CT Attending Dr: José Miguel Davidson MD Ordering Physician: Jemima Davidson MD Date of Service: 07/02/24 Procedure(s): CT ang io head neck Accession Number(s): [id number] cc: Mal Yin MD; Jemima Davidson MD EXAMINATION: CT ANGIOGRAM HEAD CT ANGIOGRAM NECK CLINICAL INFORMATION: Cerebral infarction. COMPARISON: CT head from 03/18/2024. TECHNIQUE: Initial noncontrast manager patient imaging of the head and neck was performed. Noncontrast head CT was also performed. Test bolus sequences followed by intravenous administration 70 mL of Omnipaque 350. Helical imaging was performed in the axial plane from the aortic arch to the skull vertex. Delayed postcontrast imaging of the head was also performed. The data was process ed at the fiber technologist's workstation for generation of MIP sequences. Angled MIPs and volume rendered reformatted images w ere also generated at an offline 3D workstation. Stenoses are assesse d in accordance with NASCET criteria unless otherwise indicated. This CT examination was performed using dose optimization techniques as appropriate, various ly including the following: *Automated exposure control. *Adjustment of mA an d/or kV according to patient size (this includes techniques or standardized protocols for targeted exams where dose is matched to indication/reason for exam; i.e. extremities or head). *Use of iterative reconstruction technique. DLP: 2153 mGy-cm FINDINGS: CT Head: There is chronic encephalomalacia within the right parietal lobe with associated volume lo ss. No additional loss of greer-white matter differentiation. No evidence of acute intracranial hemorrhage. A few foci of hypoattenuat ion in the periventricular and deep white matter are consistent with mild microangiopathy. Proportional prominence of the ventricles and s ulcal spaces without evidence of obstructive hydrocephalus. No abnormal mass effect or midline shift. No extra-axial fluid collections. No pathologic intra- axial enhancement. No acute soft tissue or osseous abnormalities. Mild mucosal thickening of the paranasal sin uses. The mastoid air cells and middle ear cavities are clear. The patie nt is edentulous. Bilateral lens extractions. CT Neck: The thyroid gland an d remaining cervical soft tissues are within normal limits. Straightenin g of the normal cervical lordosis. Mild degenerative anterolisthesis of C4 on C5. Moderate degenerative disc disease from C3-T1. Disc-osteophyte complex formation from C3-C6 including a central disc extrusion with superior migration at C3-C4. Facet and uncoverteb ral joint arthropathy leads to osseous encroachment on the neural forami na from C3-C6. CT Upper Chest: The visualized lung apices and upper mediastinum are within normal limits. Neck CTA: Aortic Arch: Normal contour and caliber with moderate calcific atherosclerotic dise ase. Two vessel branching pattern of the arch with left common carotid artery arising from the brachiocephalic trunk. Great Vessel Origins : No significant stenosis of the branch origins. Right Common Carotid Artery: No focal stenosis or occlusion. Cervical Right Inter nal Carotid Artery: Heavy calcific atherosclerotic disease of the carot id bulb and proximal internal carotid artery causing 80% stenosis. Left Common Carotid Artery: No focal stenosis or occlusion. Cervical Left Neon Installer al Carotid Artery: Heavy calcific atherosclerotic disease of the carot id bulb and proximal internal carotid artery causing 70% stenosis. Cervical Right Verte bral Artery: Dominant. Atherosclerotic disease causes moderate sten osis of the origin. No additional focal stenosis or occlusion. Cervical Left Verteb ral Artery: Atherosclerotic disease causes moderate stenosis of the orig in. No additional focal stenosis or occlusion. Brain CTA: Intracranial Interna l Carotid Arteries: Calcific atherosclerotic disease of the intracranial internal carotid arteries without occlusion or flow-limiting stenosis. Right Anterior Cereb ral Artery: Normal A1 segment. Normal opacification of the distal YULI segments. Left Anterior Cerebr al Artery: Normal A1 segment. Normal opacification of the distal YULI segments. Anterior Communicati ng Artery: Normal. Right Middle Cerebra l Artery: Normal M1 segment of the MCA without focal stenosis or occlusion. Normal arborization of the distal segments. Left Middle Cerebral Artery: Normal M1 segment of the MCA without focal stenosis or occlusio n. Normal arborization of the distal segments. Right Vertebral Astrid ry: Normal V4 segment. Normal opacification of the proximal segments of the posterior inferior cerebellar artery. Left Vertebral Arter y: Normal V4 segment. The posterior inferior cerebellar artery is not well opacified; however, there is no CT evidence of acute occlusion. Basilar Artery: Norm al without focal stenosis or occlusion. Normal appearance of the proximal superior cerebellar arteries. Right Posterior Cere bral Artery: The P1 segment is diminutive. origin of the PHARMACE[employer] PLANT OPERATOR wi th robust opacification of the posterior communicating artery . Normal opacification of the distal PHARMACEUTICAL PLANT OPERATOR segments. Left Posterior Cereb ral Artery: Normal P1 segment. Normal opacification of the distal PHARMACEUTICAL PLANT OPERATOR segments. Normal opacification of the superior sagittal, straight, transverse, and sigmoid sinuses. C T/CT angio head neck IMPRESSION: 1. No evidence of ac peoria intracranial hemorrhage or edematous territorial infarcti on. Chronic encephalomalacia of the right parietal lobe. Mild underlyin g microangiopathy and generalized cerebral volume loss. 2. CTA of the head a nd neck without proximal occlusion. 3. Atherosclerotic disease causes 80% stenosis of the origin of the right ICA and 70% stenosis of the origin of the left ICA. Moderate atherosclerotic sten oses of the origins of the vertebral arteries bilaterally. 4. 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 Electronically nicole d by: Damien Nguyen DO 07/02/2024 03:31 PM EDT RP Dictated By: Nila Nguyen DO Signed By: <Electronically signed by Jonathan Nguyen DO in OV> 07/02/24 1531 DD/ 0956 TD/TT: 07/02/24 1015 Cardiothoracic Anesthesia Technician: BRIGITTE Glucose, Whole Blood Reviewed date:09/11/2024 12:34:22 PM Interpretation: Performing Lab:[facility], [address] [place] [phone] Notes/Report: Glucose, Whole Blood 154 60-115 mg/dL METER #: [id number] Testing performed in the [facility] , [address], [facility]. Basic Metabolic Panel Reviewed date:10/30/2024 04:49:27 PM Interpretation: Performing Lab:[facility], [address] [place] [phone] Notes/Report: Sodium 137 135-145 mmol/L Potassium 3.9 3.3-5.1 mmol/L Chloride 104 96-108 mmol/L Carbon Dioxide 26 22-29 mmol/L Anion Gap 11 12-20 Blood Urea Nitrogen 19 9-16 mg/dL Creatinine 0.74 0.5-1.4 mg/dL Estimated Glomerular Filt Rate > 60 Chronic Kidney Disease: Estimated GFR < 60 mL/min/1.73m2 Severe Kidney Disease: Estimated GFR < 15 mL/min/1.73m2 Glucose Random 147 60-115 mg/dL Calcium 9.6 8.4-10.2 mg/dL B Type Natriuretic Peptide Reviewed date:10/30/2024 04:03:57 PM Interpretation: Performing Lab:[facility], [address] [place] [phone] Notes/Report: B Type Natriuretic Peptide < 10 <100 pg/mL For those patients who are being treated with Natrecor (nesiritide, recombinant BNP), BNP testing should be performed at least two hours post treatment in order to ensure that only endogenous levels of BNP are detected. Microalbumin, Random Reviewed date:10/30/2024 04:23:04 PM Interpretation: Performing Lab:[facility], [address] [place] [phone] Notes/Report: Creatinine Urine 131.80 Microalbumin Urine 20.0 Microalbum/Creatinine Ratio Ur 15.1 <30 ug/mg cr Albumin/Creatinine Ratio Reference Ranges: Normal: < 30 ug/mg creatinine Microalbuminuria: 30 - 300 ug/mg creatinine Clinical Albuminuria: > 300 ug/mg creatinine Glucose, Whole Blood Reviewed date:10/30/2024 02:34:47 PM Interpretation: Performing Lab:[facility], [address] [place] [phone] Notes/Report: Glucose, Whole Blood 164 60-115 mg/dL METER #: [id number] Testing performed in the [facility] , [address] [place] [place] Reviewed date:12/28/2024 05:22:11 PM Interpretation: Performing Lab:[facility], [address] [place] [phone] Notes/Report: Noel Mariscal See Note Specimen held untested for 24 hours; Call to request Chemistry testing. UA CC w/rflx Micro + Cult Reviewed date:12/28/2024 05:26:58 PM Interpretation: Performing Lab:[facility], [address] [place] [phone] Notes/Report: [id number] Urine, Clean Catch Color Urine Yellow Appearance Urine Clear PH 6.5 5.0-9.0 Glucose Urine UA Negative Negative mg/dL Urine Blood Negative Negative Specific [place] - Urine 1.020 1.005-1.025 Urine Protein Trace Neg-Trace mg/dL Urine Ketones Negative Negative mg/dL Nitrite Urine Negative Negative Leukocyte Esterase Urine Negative Negative Glucose, Whole Blood Reviewed date:01/29/2025 01:45:42 PM Interpretation: Performing Lab:[facility], [address] [place] [phone] Notes/Report: Glucose, Whole Blood 148 60-115 mg/dL METER #: [id number] Testing performed in the [facility] , [address], [facility]. Reason For Referral Reason Other headache syndr ome Diagnosis 1 [...] 11:10:27 AM EDT > appt is with Justin Mojica Annette 03/24/2024 11:19:32 AM EDT > patient is aware of appt Referral Priority Routine Referral Appointment Date 06/08/2024 Reason headaches Diagnosis 1 Other headache syndr ome (G44.89) Referral Organization Mal Yin MD Referring Provider First Name Mal Referring Provider Last Name Annamaria Referring Provider Speciality Internal M edicine Referred Provider Jair Villavicencio Referred Provider [...] eval and treat [place] being [place] [facility] [place] 1 Diverticulosis (K57. 90) Referral Organization Mal Yin MD Referring Provider First Name Mal Referring Provider Last Name Annamaria Referring Provider Speciality Internal edicine Referred Provider KYLE HOGUE Referred Provider Specialty Gastroentero logy General Notes Nina Anderson 09:49:50 AM EDT > referral info faxed to office , Nina Anderson 07/17/2024 11:41:29 AM EDT > patient is aware of appt, called office and gave appt date Referral Priority Routine Referral Appointment Date 11/17/2024 Medications Medication SIG (Take, Route, Frequency, Duration) Notes Start Date End Date Status Ferrous Sulfate 325 (65 Fe) MG TAKE 1 TABLET BY MOUTH EVERY DAY for 90 Active SUMAtriptan Succinate 50 MG 1 tablet at least 2 hours between doses as needed Orally Twice a day Active Sucralfate 1 GM TAKE 1 TABLET BY MANDI TH 3 TIMES A DAY ON AN EMPTY STOMACH FOR 30 DAYS for 30 Active Atenolol 50 MG TAKE 1 TABLET BY MANDI TH EVERY DAY for 90 Active Triamcinolone Acetonide 0.1 % APPLY DAILY TO SKIN EVERY DAY FOR 14 DAYS for 60 Active TRUEplus Lancets 28G - 1 test 3 times pe r day 3 times for 30 days Active Oseltamivir Phosphate 75 MG 1 capsule Orally Twice a day for 5 day(s) 12/15/2024 Active DULoxetine HCl 30 MG 1 capsule Orally Tw ice a day for 30 days Active Lisinopril 40 MG TAKE 1 TABLET BY MANDI TH EVERY DAY for 90 Active tiZANidine HCl 2 MG 1 tablet as needed Orally Three times a day Active Spironolactone-HCTZ 25-25 MG TAKE 1 TABLET BY MOUTH EVERY DAY for 90 Active Vitamin C 250 MG 1 tablet Orally Once a day Active D3 50 MCG (1999 UT) TAKE 1 TABLET BY MANDI TH DAILY for 90 Active FreeStyle Lite Test - USE DIRECTED TO TEST BLOOD SUGAR 3 TIMES A DAY BEFORE MEALS for 30 Active Diprolene AF 0.05 % 1 application to affected area Externally Once a day 11/25/2018 Not-Taking Freestyle Test Strips to test blood suga r invitro three times day before meals for 30 days Active PenTips 31G X 5 MM 1 sub q 4 times per day for 30 days Active CVS Prep 70 % DIRECTED ON SKIN 4 TIMES PER DAY 90 DAYS for 90 Active Omeprazole 40 MG 1 capsule 30 minutes before morning meal Orally Once a day 04/11/2020 Not-Taking Lidocaine HCl 4 % as directed External ly at night for 30 days 01/10/2021 Not-Taking Atorvastatin Calcium 40 MG 1 tablet Orally Once a day Active BD Pen Needle Kelsey 2nd Gen 32G X 4 MM USE DIRECTED 4 TIMES A DAY for 30 Active Mapap 500 MG 2 capsules as needed Orally every 6 hrs Not-Taking Gabapentin 300 MG 1 capsule Orally Twi ce a day Active GlucaGen HypoKit 1 MG as directed Inject ion as needed Active Lantus SoloStar 100 UNIT/ML 50 units Subcutaneous once a day Active metFORMIN HCl 500 MG 2 tablet with meals Orally Twice a day Active Ozempic (0.25 or 0.5 MG/DOSE) 2 MG/3ML 4mg/3ml 0.75 once a week Active traMADol HCl 50 MG 1 tablet as needed Orally Once a day Active Aspirin Low Dose 81 MG TAKE 1 TABLET BY MOUTH EVERY DAY for 90 Active Ketoconazole 2 % Externally No t-Taking Admelog SoloStar 100 UNIT/ML as directed Subcutaneous -15 18 units before meals three times per day total 75 units per day Active Fioricet 50-300-40 MG 1 capsule as neede d Orally every 4 hrs Active Immunizations Vaccine Route Administration Date Status Comme nts [...] Fluarix Quadrivalent Unknown 08/12/2022 Administered CV S Social History Tobacco Use: Social History Observation [...] ast year? No Points 0 Interpretation Negative Problems Problem Type SNOMED Code ICD Code Onset Dates Problem Status W/U Status Risk Notes Problem 211583299 Type 2 diabetes mellitus without complications (E11.9) Active confirmed Problem Sciatica (63910547) Sciatica (M54.30) Active confirmed Problem [id number] Thrombocytopenia (D69.6) Active confirmed Problem 24025500 Vitamin D defici ency (E55.9) Active confirmed Problem Hypercalcemia (54270775) Hypercalcemia (E83.52) Active confirmed Problem 738996028 Other headache syndrome (G44.89) Active confirmed Problem Cerebral infarction (081807306) Cerebral infarction, unspecified (I63.9) Active confirmed Problem 9913627965 Primary osteoarthritis, right shoulder (M19.011) Active confirmed Problem 940820583355152 Primary osteoarthritis, left shoulder (M19.012) Active confirmed Problem 511441210 Fibromyalgia (M79.7) Active confirmed Problem 164623424 Lumbar disc dise ase (M51.9) Active confirmed Problem 03099106 Essential hypert ension (I10) Active confirmed Problem 53964751 Type 2 diabetes, controlled, with neuropathy (E11.40) Active confirmed Problem 839278274 Temporal arterit is (M31.6) Active confirmed Problem 079166808 Hypoglycemia (E16.2) Active confirmed Problem 346926040 History of CVA (cerebrovascular accident) (Z86.73) Active confirmed Problem 51900892 Intrinsic eczema (L20.84) Active confirmed Problem 35039644 Peptic ulcer (K27.9) Active confirmed Problem 781905069 Fatty liver (K76.0) Active confirmed Problem 14456614 Hypercholesterol emia (E78.00) Active confirmed Problem Polymyalgia rheumatica (05780868) PMR (polymyalgia rheumatica) (M35.3) Active confirmed Problem 22542900 Incontinence of feces, unspecified fecal incontinence type (R15.9) Active confirmed Problem 16828995 Arthritis of rig ht hip (M16.11) Active confirmed Problem Diverticular disease of colon (393148891) Diverticulosis (K57.90) Active confirmed Problem 42443384 Incontinence in female (R32) Active confirmed Problem 52132956 Carpal tunnel syndrome, unspecified laterality (G56.00) Active confirmed Problem 207722611 Visual loss (H54.7) Active confirmed Vital Signs Temperature 102.1 degrees Fahrenheit 12/15/2024 kirti ght is 190 BP not taken at home temp is 102.1 Blood pressure diastolic 64 mm Hg 12/31/2024 Height 60 in 12/31/2024 Blood pressure systolic 132 mm Hg 12/31/2024 Weight 175 lbs 12/31/2024 BMI 34.17 kg/m2 12/31/2024 Encounters Encounter Location Date Provider Diagnosis Mal Yin MD [address] [place] [address] [id number] 12/28/2024 Mal Yin Blood tests for rout ine general physical examination Z00.00 ; Type 2 diabetes mellitus without complications E11.9 ; Essential hypertension I10 ; Hypercholesterolemia E78.00 ; Vitamin D deficiency E55.9 and Thrombocytopenia D69.6 Mal Yin MD [address] [place] [address] [id number] 03/24/2024 Mal Yin Type 2 diabetes, controlled, with neuropathy E11.40 ; Visual loss H54.7 and Other headache syndrome G44.89 Mal Yin MD [address] [place] [address] [id number] 03/26/2024 Mal Yin Visual loss H54.7 an d Other headache syndrome G44.89 Mal Yin MD [address] [place] [address] [id number] 03/31/2024 Mal Yin Temporal arteritis M 31.6 ; Jaw claudication M26.69 and Type 2 diabetes mellitus without complications E11.9 Mal Yin MD [address] [place] [address] [id number] 04/09/2024 Mal Yin Visual loss H54.7 an d Other headache syndrome G44.89 Mal Yin MD [address] [place] [address] [id number] 07/03/2024 Mal Yin Type 2 diabetes, controlled, with neuropathy E11.40 ; Frequent headaches R51.9 and Vision changes H53.9 Mal Yin MD [address] [place] [address] [id number] 10/15/2024 Mal Yin Type 2 diabetes, controlled, with neuropathy E11.40 ; Primary osteoarthritis, right shoulder M19.011 ; Primary osteoarthritis, left shoulder M19.012 and Arthritis of right hip M16.11 Mal Yin MD [address] [place] [address] [id number] 12/15/2024 Mal Yin Influenza A J10.1 Mal Yin MD [address] [place] [address] [id number] 12/31/2024 Mal Yin Hypercalcemia E83.52 ; Annual physical exam Z00.00 ; Type 2 diabetes, controlled, with neuropathy E11.40 ; Essential hypertension I10 ; Vitamin D deficiency E55.9 and Depression screening Z13.31 Mal Yin MD [address] [place] [address] [id number] 03/10/2024 Mal Yin MD [address] [place] [address] [id number] 03/19/2024 Mal Yin Cerebral infarction, unspecified I63.9 Mal Yin MD [address] [place] [address] [id number] 03/20/2024 Mal Yin MD [address] [place] [address] [id number] 03/20/2024 Mal Yin MD [address] [place] [address] [id number] 03/23/2024 Mal Yin MD [address] [place] [address] [id number] 03/26/2024 Mal Yin MD [address] [place] [address] [id number] 03/26/2024 Mal Yin MD [address] [place] [address] [id number] 07/17/2024 Mal Yin MD [address] [place] [address] [id number] 08/07/2024 Mal Yin MD [address] [place] [address] [id number] 12/17/2024 Mal Yin Assessments Encounter Date Diagnosis (ICD Code) Assessment Notes Treatment Notes Treatment Clinical Notes Section Notes 12/28/20[address] ine general physical examination (ICD-10 - Z00.00) 03/24/2024 Type 2 diabetes, controlled, with neuropathy (ICD-10 - E11.40) needs to follow up with dr lozada for her complicated diabetes 03/24/2024 Visual loss (ICD-10 - H54.7) if vision gets worse to go to er 03/26/2024 Visual loss (ICD-10 - H54.7) if the vision gets worse to go to the emergency room. would normally place on steroids while she is awaiting the biopsy but her sugars would be terrible and she is getting better so unlikely pmr 03/26/2024 Other headache syndr ome (ICD-10 - [...] will try to get her to a spotlight operator as an emergency to treat with the prednisone sparing drugs. 03/31/2024 Temporal arteritis (ICD-10 - M31.6) the pain is severe over both of her temporal arteries. would have expected some improvemnt but she has only taken the prednisone 3 days. 03/31/2024 Jaw claudication (ICD-10 - M26.69) she still gets this at times 04/09/2024 Visual loss (ICD-10 - H54.7) patient verbalized understanding of instruction t discontinue Prednisone 04/09/2024 Other headache syndr ome (ICD-10 - G44.89) is the second time she had a biopsy and they are both negative. since we have another cause of her vision loss i don't feel we should continue with the prednisone in this diabetic patieint. especially since it didn't help her headace/ 07/03/2024 Type 2 diabetes, controlled, with neuropathy (ICD-10 - E11.40) doing well at present. on multiple meds followed at [facility], will continue current regiment 07/03/2024 Frequent headaches (ICD-10 - R51.9) now felt to be migraine 10/15/2024 Type 2 diabetes, controlled, with neuropathy (ICD-10 - E11.40) is running a little high with all the cortisone shots 10/15/2024 Primary osteoarthrit is, right shoulder (ICD-10 - M19.011) have given her an order for a hospital bed as she can't get out of bed due to her arthritis 12/15/2024 Influenza A (ICD-10 - J10.1) is prevalent in the community and she is unable to get out to get tested so will treat empirically, patient verbalized understanding of medication nd directions for use 12/31/2024 Hypercalcemia (ICD-1 0 - E83.52) pending labs 12/31/2024 Annual physical exam (ICD-10 - Z00.00) labs reviewed and discussed with patient 03/19/2024 Cerebral infarction, unspecified (ICD-10 - I63.9) 12/28/2024 Type 2 diabetes mellitus without complications (ICD-10 - E11.9) 03/24/2024 Other headache syndr ome (ICD-10 - G44.89) sed rate and needs biopsy. is seeing ophthal in 2 days/ had biopsy in past was negative and would be very difficult to treat with her diabetes. 03/31/2024 Type 2 diabetes mellitus without complications (ICD-10 - E11.9) sugars are not too bad yet and hopefully will get the spotlight operator to put her on the prednisone sparing meds 07/03/2024 Vision changes (ICD- 10 - H53.9) is going to see specialist next month 10/15/2024 Primary osteoarthrit is, left shoulder (ICD-10 - M19.012) 12/31/2024 Type 2 diabetes, controlled, with neuropathy (ICD-10 - E11.40) stable, will continue current regiment 12/28/2024 Essential hypertensi on (ICD-10 - I10) 10/15/2024 Arthritis of right h ip (ICD-10 - M16.11) has trouble getting out of bed due to her hip 12/31/2024 Essential hypertensi on (ICD-10 - I10) stable, will continue current regiment 12/28/2024 Hypercholesterolemia (ICD-10 - E78.00) 12/31/2024 Vitamin D deficiency (ICD-10 - E55.9) doing well, will continue current regiment 12/28/2024 Vitamin D deficiency (ICD-10 - E55.9) 12/31/2024 Depression screening (ICD-10 - Z13.31) negative screen 12/28/2024 Thrombocytopenia (ICD-10 - D69.6) 10/15/2024 Other Total time spen t on the date of the encounter is 35 minutes including both face to face time spent and time spent reviewing documentation, and counseling the patient. Plan Of Treatment Pending Test Test Name Order Date Electrocardiogram (EKG) 04/02/2023 MRI ANKLE LT NO CONTRAST 02/01/2022 MRI BRAIN NO CONTRAST 03/19/2024 UA ClnCatch+Micro w/rflx Cult 12/28/2024 Next Appt Details Provider Name:Mal George ier, 06/25/2025 08:00:00 AM, [address] [place] [address], [address], [place], [id number], Provider Name:Mal George ier, 07/02/2025 01:30:00 PM, [address] [place] [address], [address], [place], [place], [id number], Provider Name:Mal George ier, 12/28/2025 08:00:00 AM, [address], [address], [place], [place], [phone], Provider Name:Mal George ier, 01/04/2026 02:30:00 PM, [address], [address], [place], [place], [id number], Insurance Providers Payer Name Payer Address Payer Phone Subscriber Number Group Number Insured Name Patient Relationship to Insured Coverage Start Date Coverage End Date [facility] [address] [place] [address] [id number] Delaney Dunlap Self - patient is the insured Medical (General) History Medical History History ICD Code had gi [...]
--- OUTSIDE RECORDS SUMMARY | 2025-02-10 12:38 | XMS_ITS | Clinical Summary ---
Author Organization [facility] Facility Address [address] [address] Care Team Providers Care Functional Analyst Name Role Phone Mal Yin MD Primary [...] Insurance [place] [employer] [employer] Care Teams Functional Analyst Relationship Specialty Start Date End Date Mal Yin MD [address] [place] [address] [id number] [place], [place] PCP - General Internal Medicine 12/20/21
== END 2025-02-10 12:02 | disposition home or self-care (01) ==
LOC: HO.HGI 10:51
PROVIDERS: PCP Internal Medicine; Visit Provider Nurse Practitioner Family
DX: K59.09 Other constipation (principal); E66.9 Obesity, unspecified; K21.9 Gastro-esophageal reflux disease without esophagitis
CPT/HCPCS: 99215

== ENCOUNTER 2025-02-19 11:14 | Outpatient (AMB) | payer OTHER, SELFPAY ==
[2025-02-19 11:21] VITALS: BP 151/67; PULSE 76; RESP 16; O2SAT 97; BMI 29.5
--- NOTE | 2025-02-19 11:21 | MHC.OFFVIS ---
Vital Signs 02/19/25 11:21 Height 5 ft 4 in Weight 172 lb BMI 29.5 BP 151/67 H Blood Pressure Location Lt brachial Position Sitting Respiration 16 Pulse 76 Pulse Source Pulse Oximeter Pulse Oximetry (%) 97 Oxygen Delivery Method Room Air Intake Visit Reasons: PROCEDURE DISCUSSION/Sprint denied Hammer Adjuster Required: No Allergies GEL ELECTRODES Allergy (Mild, Uncoded 02/19/25 12:50) RASH Medication List - Last Reconciled 02/19/25 by Monica Brock LPN acetaminophen (Tylenol Extra Strength) 500 mg PO Q6H PRN alcohol swabs pad topical amlodipine 2.5 mg PO DAILY aspirin 81 mg PO DAILY atenolol 50 mg PO DAILY atorvastatin 40 mg PO DAILY@1700 blood sugar diagnostic (FreeStyle Lite Strips) DIRECTED 4 TIMES A DAY blood-glucose sensor (FreeStyle Marty 3 Plus Sensor device) Use daily As directed to monitor glucose kvakthvcyr-ktiirahjygcnc-wgdp 50-300-40 mg (Fioricet) 1 cap PO Q8H PRN cholecalciferol (vitamin D3) 50 mcg PO DAILY docusate sodium (Colace) 100 mg PO BID empagliflozin (Jardiance) 10 mg PO QAM ferrous sulfate 325 mg PO DAILY flash glucose scanning reader (FreeStyle Marty 2 Mena) As directed flash glucose sensor (FreeStyle Marty 2 Sensor kit) DIRECTED CHANGE EVERY 14 DAYS gabapentin 300 mg PO BID glucagon (Gvoke HypoPen 2-Pack) 1 mg (0.2 mL) subcut ONCE insulin glargine U-300 conc (Toujeo Max U-300 SoloStar) 50 units (0.1667 mL) subcut BEDTIME insulin lispro (Admelog SoloStar U-100 Insulin lispro) 15 u for small meals, 15 u for large, + 2 units for bg>200, + 3 units for BG >250, + 4 units bg >300mg/dl. Of note..for very light meal use only 6 units. subcut 3 times a day; 30 days lisinopril 40 mg PO DAILY metformin 500 mg PO BID 90 days pantoprazole (Protonix) 40 mg PO DAILY pen needle, diabetic As directed pen needle, diabetic Use QID As directed semaglutide (Ozempic) 2 mg (0.75 mL) subcut QWEEK sumatriptan succinate mg PO HPI HPI PROCEDURE DISCUSSION/Sprint denied: Details: History of Present Illness The patient is a 64-year-old female presenting with left knee pain. She describes significant pain in the left knee, which continues to intensify and severely limits her ability to stand and ambulate. Past treatments with corticosteroid injections provided some relief, but subsequent treatment requests, including gel injections, were denied. She requires assistance to move around due to this debilitating pain, which has also affected her participation in physical therapy. Her overall history includes diabetes mellitus and hyperglycemia, complicating her treatment options due to potential side effects from repeated corticosteroid injections. The current pain is also associated with burning sensations and issues with brace integrity. Despite past physical therapy interventions for other conditions, her left knee pain prevents her participation at this time. Pain Description - Onset and Timing: Persistent knee pain, worsened over time. - Quality and Character: Burning sensation in the left knee and surrounding areas. - Location: Primarily left knee, radiates up the leg. - Exacerbating Factors: Standing and ambulating. - Relieving Factors: Prior corticosteroid injections provided some relief. - Interference: Limited ability to stand or walk without assistance. Physical Exam - Appears afebrile. - Alert and oriented. - Mood and affect appropriate. - Follows and participates in conversation appropriately. - Respiratory effort is unlabored. - Requires walker for ambulation. - Both knees in braces. Pain Management - Affect: Pain limits patient's mobility and requires assistance from family members. - Analgesia: Gabapentin prescribed; however, the patient reported inadequate relief with usck-cbg-mpewmou medications like Tylenol. - Adverse Effects: None reported, but concerns about side effects with repeated corticosteroid use. - Activities of Daily Living: Severely affected; patient requires assistance for ambulation due to knee pain. - Aberrant Drug-Related Behaviors: No signs of medication misuse reported. [facility] Medical History Arthritis Anemia GI bleed Temporal headache Urinary incontinence Chronic constipation Fibromyalgia Primary osteoarthritis of knees, bilateral NAFLD (nonalcoholic fatty liver disease) Tubular adenoma of colon Essential hypertension Neuropathy Osteoarthritis DARIEL on CPAP Upper GI bleed Hepatomegaly History of alcohol abuse Stroke Depression Anxiety Hyperlipidemia LDL goal <70 Obesity with body mass index of 30.0-39.9 Type 2 diabetes mellitus with diabetic polyneuropathy Surgical History History of temporal artery biopsy Hx of esophagogastroduodenoscopy Hx of colonoscopy Family History Father Diabetes Mother Hypertension Daughter Breast cancer Ovarian cancer Social History Household Members: Family Household Members Other:: adult child and grandchild Are you a primary skin care technician to a significant other at home: No Do you presently have visiting nurse or other home services: No Alcohol intake: former Patient Tobacco Use Status: Former Tobacco user Years Smoked: quit 10 years ago Current occupational status: disabled Current occupation: rt handed Physical Exam Vital Signs: Last Vital Signs Pulse 76 02/19/25 11:21 Resp 16 02/19/25 11:21 BP 151/67 H 02/19/25 11:21 Pulse Ox 97 02/19/25 11:21 Oxygen Delivery Method Room Air 02/19/25 11:21 BMI result Body Mass Index 29.5 Assessment & Plan Assessment & Plan (1) Bilateral knee pain: Code(s): M25.561 - Pain in right knee; M25.562 - Pain in left knee Category: Medical Plan Plan - Request authorization for intra-articular hyaluronic acid injection for left knee pain not responsive to steroid injections. Not able to participate in PT anymore due to pain. - Limit cortisone intake in setting of DM and obesity. - Prescribe a customized knee brace to stabilize and prevent falls. - Continue gabapentin prescription; ensure patient is aware of available refills. - Ongoing assessment for pain and functional improvement post-intervention. Patient was informed and verbally consented to the use of an ambient scribe for clinic note documentation during this visit. Discussion Notes I discussed with the patient the current state of her left knee pain and the limited efficacy of previous treatments. Given her diabetes and hyperglycemia, I advised against further corticosteroid injections due to the potential side effects. I emphasized the plan to seek authorization for hyaluronic acid injections as an alternative. We also discussed the provision of a customized knee brace to enhance stability and reduce fall risk. I reiterated the importance of adhering to medication regimens and assured her of the continuation of gabapentin for pain management purposes. We agreed on reassessing pain management strategies and procedural responses as we progress. Patient Instructions - Await authorization for a new knee injection and schedule follow-up once approved. - Use a customized knee brace once received for support and stability. - Continue taking gabapentin as prescribed for pain relief. - Ensure to follow up if pain worsens or new issues arise. - Seek assistance from family for mobility as needed to prevent falls. Medications: New Knee brace As directed 1 ea 0RF Coding Level of Care Code Est Pt Level 4 (51264) Diagnoses Bilateral knee pain M25.561; M25.562
--- OUTSIDE RECORDS SUMMARY | 2025-02-19 12:20 | XMS_ITS | Clinical Summary ---
Author Organization [facility] Facility Address [address] [address] Care Team Providers Care Staff Accountant Name Role Phone Mal Yin MD Primary [...] Comments Breast Cancer Screening 1960 Pneumococcal Vaccine: 50+ Ye ars (1 of 2 - PCV) 1979 Colorectal Cancer Screening: Annual FOBT 2009 Colorectal Cancer Screening: Colonoscopy 2009 Colorectal Cancer Screening: Sigmoidoscopy 2009 Diabetes: Hemoglobin A1C 02/06/2022 Diabetes: Ophthalmology Exam 02/06/2022 Diabetes: Pedal Pulse Checked 02/06/2022 Diabetes: Sensory Foot Exam 02/06/2022 Diabetes: Visual Foot Exam 02/06/2022 Influenza Vaccine (Season Ended) 2025 Hepatitis B Vaccine Aged Out No longe r eligible based on patient's age to complete this topic Insurance [place] Care Teams Staff Accountant Relationship Specialty Start Date End Date Mal Yin MD [id number] [place], [place] PCP - General Internal Medicine 12/20/21
== END 2025-02-19 12:03 | disposition home or self-care (01) ==
LOC: HO.PMC 11:14
PROVIDERS: PCP Internal Medicine; Visit Provider Internal Medicine
DX: M25.561 Pain in right knee (principal); M25.562 Pain in left knee
CPT/HCPCS: 99214

== ENCOUNTER → 2025-02-19 11:14 | Outpatient (BNVA) | payer OTHER, SELFPAY | PROVIDERS: PCP Internal Medicine; Visit Provider Internal Medicine | DX: E11.65 Type 2 diabetes mellitus with hyperglycemia (principal); E78.5 Hyperlipidemia, unspecified; I10 Essential (primary) hypertension; M25.561 Pain in right knee; M25.562 Pain in left knee; Z79.4 Long term (current) use of insulin | CPT/HCPCS: 82947; 99212 ==

== ENCOUNTER 2025-02-19 12:40 | Outpatient (AMB) | payer OTHER, SELFPAY ==
[2025-02-19 12:44] VITALS: BP 124/48; PULSE 70; O2SAT 96; BMI 30.2
--- NOTE | 2025-02-19 12:44 | MHC.OFFVIS ---
Vital Signs 02/19/25 12:44 Height 5 ft 4 in Weight 176 lb 2.389 oz BMI 30.2 BP 124/48 L Blood Pressure Location Lt brachial Position Sitting Pulse 70 Pulse Source Pulse Oximeter Pulse Oximetry (%) 96 Oxygen Delivery Method Room Air Intake Visit Reasons: T2DM Intake Note: Patient present today for Type 2 Diabetes Mellitus Last Diabetic eye exam: April 2024 Last Podiatry Visit: Doesn't have one Random Glucose: 123 mg/dl HgA1C: 7.6% 12/28/24 Marine Engineering Professor Required: No Accompanied by: Self / Same As Patient Allergies GEL ELECTRODES Allergy (Mild, Uncoded 02/19/25 12:50) RASH Medication List - Last Reconciled 02/19/25 by Darcy Mason PA-C acetaminophen (Tylenol Extra Strength) 500 mg PO Q6H PRN alcohol swabs pad topical amlodipine 2.5 mg PO DAILY aspirin 81 mg PO DAILY atenolol 50 mg PO DAILY atorvastatin 40 mg PO DAILY@1700 blood sugar diagnostic (FreeStyle Lite Strips) DIRECTED 4 TIMES A DAY blood-glucose sensor (FreeStyle Marty 3 Plus Sensor device) Use daily As directed to monitor glucose lrwxjbwaze-tekzbovgirwbs-vbis 50-300-40 mg (Fioricet) 1 cap PO Q8H PRN cholecalciferol (vitamin D3) 50 mcg PO DAILY docusate sodium (Colace) 100 mg PO BID empagliflozin (Jardiance) 10 mg PO QAM ferrous sulfate 325 mg PO DAILY flash glucose scanning reader (FreeStyle Marty 2 [place]) As directed flash glucose sensor (FreeStyle Marty 2 Sensor kit) DIRECTED CHANGE EVERY 14 DAYS gabapentin 300 mg PO BID glucagon (Gvoke HypoPen 2-Pack) 1 mg (0.2 mL) subcut ONCE insulin glargine U-300 conc (Toujeo Max U-300 SoloStar) 50 units (0.1667 mL) subcut BEDTIME insulin lispro (Admelog SoloStar U-100 Insulin lispro) 15 u for small meals, 15 u for large, + 2 units for bg>200, + 3 units for BG >250, + 4 units bg >300mg/dl. Of note..for very light meal use only 6 units. subcut 3 times a day; 30 days Knee brace As directed lisinopril 40 mg PO DAILY metformin 500 mg PO BID 90 days pantoprazole (Protonix) 40 mg PO DAILY pen needle, diabetic As directed pen needle, diabetic Use QID As directed semaglutide (Ozempic) 2 mg (0.75 mL) subcut QWEEK sumatriptan succinate mg PO HPI HPI T2DM: Details: Patient is a 64 yo female with DM type 2 diagnosed 2009, who presents for visit for follow up management of diabetes . Past medical history: HTN, HLD. fibromyalgia, ostearthritis, DARIEL, neuropathy Last A1c was 7.6. Diabetes medications: Ozempic 2 mg Qwkly, Toujeo 10 units, admelog sliding scale 5-10 units with meals, metformin 500 mg twice a day and jardiance 10 mg. She states that this regimen has been very effective for her. Her blood sugars over the last few weeks have been normal and improving. -she is off of invokana due to insurance reasons, she does not like taking higher doses of metformin it causes stomach upset, trulicity caused nausea, lantus ineffective Blood glucose monitoring: G mi 6.8%, average glucose 144, variability 23%. Usage 66%. She is on the Marty 2. Very hyperglycemic 1%, hyperglycemic 12%, in range 86%, hypoglycemic 1%. - they will start covering marty 3+ in March Hypoglycemia: No longer experiencing any hypoglycemic events Symptoms of shakiness and sweatiness. 4 oz of juice or 2 tb sugar or glucose tabs. Hyperglycemia: + urinary frequency, + nocturia (2x) , denies polydypsia She is on an PRIYA-inhibitor and statin CV: Bp today is 124/48. It has been normal at other visits recently. No cp, sob, dizziness. She is on atenolol 50 mg daily, amlodipine 2.5 mg daily and lisinopril 40 mg. Compliant with atorvastatin 40 mg [facility] Medical History Arthritis Anemia GI bleed Temporal headache Urinary incontinence Chronic constipation Fibromyalgia Primary osteoarthritis of knees, bilateral NAFLD (nonalcoholic fatty liver disease) Tubular adenoma of colon Essential hypertension Neuropathy Osteoarthritis DARIEL on CPAP Upper GI bleed Hepatomegaly History of alcohol abuse Stroke Depression Anxiety Hyperlipidemia LDL goal <70 Obesity with body mass index of 30.0-39.9 Type 2 diabetes mellitus with diabetic polyneuropathy Surgical History History of temporal artery biopsy Hx of esophagogastroduodenoscopy Hx of colonoscopy Family History Father Diabetes Mother Hypertension Daughter Breast cancer Ovarian cancer Social History Household Members: Family Household Members Other:: adult child and grandchild Are you a primary career professional to a significant other at home: No Do you presently have visiting nurse or other home services: No Alcohol intake: former Patient Tobacco Use Status: Former Tobacco user Years Smoked: quit 10 years ago Current occupational status: disabled Current occupation: rt handed Physical Exam Vital Signs: Last Vital Signs Pulse 70 02/19/25 12:44 BP 124/48 L 02/19/25 12:44 Pulse Ox 96 02/19/25 12:44 Oxygen Delivery Method Room Air 02/19/25 12:44 BMI result Body Mass Index 30.2 Const Orientation/consciousness: patient oriented x3 Neck Neck: Yes no lymphadenopathy Thyroid: Thyroid normal Carotids: no bruits Resp Auscultation: clear to auscultation bilaterally Cardio Rate: regular rate Rhythm: regular rhythm Heart sounds: S1 normal heart sound present and S2 normal heart sound present Peripheral pulses: dorsalis pedis present Neuro General: patient oriented x3, gait normal and no focal motor deficits Extrem Other: Monofilament sensation not present bilaterally. Vibratory sensation not present bilaterally. Skin intact. bilateral callus formation on medial aspect of the feet. General: Yes normal to inspection Results Reviewed Results Reviewed: Laboratory Last Values Glucose (Clinic) 123 mg/dL (60-115) H 02/19/25 12:51 Laboratory Tests 02/10/25 02/19/25 09:28 12:51 Sodium 140 Potassium 4.1 Chloride 108 Carbon Dioxide 27 Creatinine 0.69 Estimated GFR > 60 Glucose (Clinic) 123 H Random Glucose 114 AST 22 ALT 7 Laboratory Tests 12/28/24 08:00 Triglycerides 162 H Cholesterol 147 LDL Cholesterol, Calc 77 HDL Cholesterol 38 L Assessment & Plan Assessment & Plan (1) Uncontrolled type 2 diabetes mellitus with hyperglycemia, with long-term current use of insulin: Code(s): E11.65 - Type 2 diabetes mellitus with hyperglycemia; Z79.4 - assisted (current) use of insulin Category: Medical Plan: continue current plan. no changes made today continue toujeo 50 units continue sliding scale 5-10 units continue metformin 500 mg bid, jardiance 10 mg daily, and ozempic 2 mg weekly (2) Essential hypertension: Code(s): I10 - Essential (primary) hypertension Category: Medical Plan: continue current plan (3) Hyperlipidemia LDL goal <70: Code(s): E78.5 - Hyperlipidemia, unspecified Category: Medical Plan: as above Plan reviewed labs Orders: Referrals Podiatry Referral E11.42 - Type 2 diabetes mellitus with diabetic polyneuropathy, L84 - Corns and callosities, Z79.4 - assisted (current) use of insulin Medications: New blood-glucose,cement grinding mill operator,cont (FreeStyle Marty 3 [place]) Use daily As directed to monitor blood glucose 1 ea 0RF E11.65 - Type 2 diabetes mellitus with hyperglycemia, Z79.4 - buttermaker (current) use of insulin Coding Level of Care Code Est Pt Level 4 (86686) Complex EM visit Add On G2211 Diagnoses Uncontrolled type 2 diabetes mellitus with hyperglycemia, with long-term current use of insulin E11.65; Z79.4 Essential hypertension I10 Hyperlipidemia LDL goal <70 E78.5
[2025-02-19 12:55] LABS: Glucose, Whole Blood 123 mg/dL (60-115)
--- OUTSIDE RECORDS SUMMARY | 2025-02-19 13:16 | XMS_ITS | Clinical Summary ---
Author Organization [facility] Facility Address [address] [address] Care Team Providers Care Mail Agent Name Role Phone Mal Yin MD Primary Care Provider [phone] Allergies No known active allergies Medications triamcinolone [...] Insurance [place] [employer] [employer] Care Teams Mail Agent Relationship Specialty Start Date End Date Mal Yin MD [address] [place], [place] PCP - General Internal Medicine 12/20/21
== END 2025-02-19 13:24 | disposition home or self-care (01) ==
LOC: HO.ENCR 12:41
PROVIDERS: PCP Internal Medicine; Visit Provider Physician Assistant
DX: E11.65 Type 2 diabetes mellitus with hyperglycemia (principal); Z79.4 Long term (current) use of insulin; I10 Essential (primary) hypertension; E78.5 Hyperlipidemia, unspecified

== ENCOUNTER 2025-03-04 07:09 | Outpatient (REF) | payer OTHER, SELFPAY ==
--- NOTE | ~2025-03-04 | FL_ITS ---
EXAMINATION: XR FLUOROSCOPY WITH IMAGES CLINICAL INFORMATION: Right knee pain management COMPARISON: None available. TECHNIQUE: Fluoroscopy provided to: Dr. Oneill Fluoroscopy time: 0.0 minutes DAP: 0.38302 mGycm2 Images: 1 FINDINGS: Solitary spot image obtained during fluoroscopic guided right knee intra-articular injection for pain management. Please refer to the full operative report for details. FL/FL guidance in treatment room IMPRESSION: Fluoroscopic guidance. Electronically signed by: Filippo Givens MD 03/05/2025 11:23 AM EDT
--- OUTSIDE RECORDS SUMMARY | 2025-03-04 07:12 | XMS_ITS | Clinical Summary ---
Author Organization [facility] Facility Address [address] [address] Care Team Providers Care Kiln Transfer Operator Name Role Phone Mal Yin MD Primary [...] Insurance [place] [employer] Care Teams Kiln Transfer Operator Relationship Specialty Start Date End Date Mal Yin MD [address] [place], [place] PCP - General Internal Medicine 12/20/21
== END 2025-03-04 07:10 | disposition home or self-care (01) ==
LOC: CF 07:09
PROVIDERS: Visit Provider Internal Medicine
DX: M25.562 Pain in left knee (principal)
CPT/HCPCS: 20610; J2003; J7323; Q9967

== ENCOUNTER 2025-03-04 12:12 | Outpatient (AMB) | payer OTHER, SELFPAY ==
[2025-03-04 12:24] VITALS: BP 150/58; PULSE 95; RESP 16; O2SAT 97
--- NOTE | 2025-03-04 12:24 | MHC.OFFVIS ---
Vital Signs 03/04/25 12:24 03/04/25 12:55 BP 150/58 H 120/66 Blood Pressure Location Lt brachial Lt brachial Position Sitting Sitting Respiration 16 15 Pulse 95 94 Pulse Source Pulse Oximeter Pulse Oximeter Pulse Oximetry (%) 97 98 Oxygen Delivery Method Room Air Room Air Intake Visit Reasons: L knee Euflexxa inj w/ fluoro (1st) Exercise Specialist Required: No Allergies GEL ELECTRODES Allergy (Mild, Uncoded 03/04/25 12:26) RASH Medication List - Last Reconciled 03/04/25 by Monica Brock LPN acetaminophen (Tylenol Extra Strength) 500 mg PO Q6H PRN alcohol swabs pad topical amlodipine 2.5 mg PO DAILY aspirin 81 mg PO DAILY atenolol 50 mg PO DAILY atorvastatin 40 mg PO DAILY@1700 blood sugar diagnostic (FreeStyle Lite Strips) DIRECTED 4 TIMES A DAY blood-glucose sensor (FreeStyle Marty 3 Plus Sensor device) Use daily As directed to monitor glucose blood-glucose,sponge press operator,cont (FreeStyle Marty 3 [place]) Use daily As directed to monitor blood glucose fhldbahhga-lggfuspnbgqre-ynnb 50-300-40 mg (Fioricet) 1 cap PO Q8H PRN cholecalciferol (vitamin D3) 50 mcg PO DAILY docusate sodium (Colace) 100 mg PO BID empagliflozin (Jardiance) 10 mg PO QAM ferrous sulfate 325 mg PO DAILY flash glucose scanning reader (FreeStyle Marty 2 [place]) As directed flash glucose sensor (FreeStyle Marty 2 Sensor kit) DIRECTED CHANGE EVERY 14 DAYS gabapentin 300 mg PO BID glucagon (Gvoke HypoPen 2-Pack) 1 mg (0.2 mL) subcut ONCE insulin glargine U-300 conc (Toujeo Max U-300 SoloStar) 50 units (0.1667 mL) subcut BEDTIME insulin lispro (Admelog SoloStar U-100 Insulin lispro) 15 u for small meals, 15 u for large, + 2 units for bg>200, + 3 units for BG >250, + 4 units bg >300mg/dl. Of note..for very light meal use only 6 units. subcut 3 times a day; 30 days Knee brace As directed lisinopril 40 mg PO DAILY metformin 500 mg PO BID 90 days pantoprazole (Protonix) 40 mg PO DAILY pen needle, diabetic As directed pen needle, diabetic Use QID As directed semaglutide (Ozempic) 2 mg (0.75 mL) subcut QWEEK sumatriptan succinate mg PO HPI HPI L knee Euflexxa inj w/ fluoro (1st): Details: Patient presents for scheduled procedure. Denies any recent cough, cold, infection, fever or other significant changes in medical history since last office visit. [facility] Medical History Arthritis Anemia GI bleed Temporal headache Urinary incontinence Chronic constipation Fibromyalgia Primary osteoarthritis of knees, bilateral NAFLD (nonalcoholic fatty liver disease) Tubular adenoma of colon Essential hypertension Neuropathy Osteoarthritis DARIEL on CPAP Upper GI bleed Hepatomegaly History of alcohol abuse Stroke Depression Anxiety Hyperlipidemia LDL goal <70 Obesity with body mass index of 30.0-39.9 Type 2 diabetes mellitus with diabetic polyneuropathy Surgical History History of temporal artery biopsy Hx of esophagogastroduodenoscopy Hx of colonoscopy Family History Father Diabetes Mother Hypertension Daughter Breast cancer Ovarian cancer Social History Household Members: Family Household Members Other:: adult child and grandchild Are you a primary customer care consultant to a significant other at home: No Do you presently have visiting nurse or other home services: No Alcohol intake: former Patient Tobacco Use Status: Former Tobacco user Years Smoked: quit 10 years ago Current occupational status: disabled Current occupation: rt handed Physical Exam Vital Signs: Last Vital Signs Pulse 95 03/04/25 12:24 Resp 16 03/04/25 12:24 BP 150/58 H 03/04/25 12:24 Pulse Ox 97 03/04/25 12:24 Oxygen Delivery Method Room Air 03/04/25 12:24 Office Procedures AMB Joint Injection/Aspiration Joint Injection/Aspiration Primary Site: left knee Prep: site was prepped using sterile technique Injected: in the joint (2mL Euflexxa) Approach Used: medial parapatellar (Fluoro guided) Procedure: The patient tolerated the procedure well Coding 58749 - Large joint Procedure code (CPT) selection complete Office Meds Euflexxa 10 mg/mL (mw 2.4-3.6 million) intra-articular syringe Performing Provider: Dve Oneill MD Performing Location: [facility] Administered by: Dev Oneill MD on 03/04/25 12:46 Dose Route Admin Location Dispensed Lot Number Expiration Date NDC Surgical Specialist 20 mg intra-articular 2 mL [id number] 02/20/26 [address]-9 [employer] Assessment & Plan Assessment & Plan (1) Primary osteoarthritis of knees, bilateral: Comment: bilateral knee pain Code(s): M17.0 - Bilateral primary osteoarthritis of knee Category: Medical Plan Patient is status post left knee Euflexxa injection under fluoroscopy. Patient tolerated procedure well and was discharged home in stable condition with discharge instructions. All questions were answered. Recommend follow-up with Florecita in Orthopedics to consider fitting for a boot to help with her right ankle pain and potential sinus tarsi syndrome. Orders: Orders FL guidance in treatment room Today M25.561 - Pain in right knee, M25.562 - Pain in left knee AMB Hyaluronic Injection Today M17.0 - Bilateral primary osteoarthritis of knee Coding Level of Care Code Procedure Only Diagnoses Primary osteoarthritis of knees, bilateral M17.0 CPT Codes Coding - 51441 Large joint: 49217 - Large joint ([id number])
[2025-03-04 12:55] VITALS: BP 120/66; PULSE 94; RESP 15; O2SAT 98
== END 2025-03-04 12:58 | disposition home or self-care (01) ==
LOC: HO.PMCPRC 12:12
PROVIDERS: PCP Internal Medicine; Visit Provider Internal Medicine
DX: M17.0 Bilateral primary osteoarthritis of knee (principal)
CPT/HCPCS: 20610; 77002

== ENCOUNTER 2025-03-11 06:24 | Outpatient (REF) | payer OTHER, SELFPAY ==
--- NOTE | ~2025-03-11 | FL_ITS ---
EXAMINATION: XR FLUOROSCOPY WITH IMAGES CLINICAL INFORMATION: Left knee pain management injection. COMPARISON: None available. TECHNIQUE: Fluoroscopy provided to: Dr. Oneill Fluoroscopy time: 0.1 minutes DAP: [id number] mGycm2 Images: 4 FINDINGS: 4 spot images obtained during left knee intra-articular pain management injection. Please refer to the full operative report for details. FL/FL guidance in treatment room IMPRESSION: Fluoroscopic guidance. Electronically signed by: Filippo Givens MD 03/11/2025 02:45 PM EDT
--- OUTSIDE RECORDS SUMMARY | 2025-03-11 06:28 | XMS_ITS ---
Author Organization Mal Yin MD Address [address] [place], [place] [phone] Care Team Providers Care Network Contractor Name Role Phone Mal Yin Primary Care Provider Results Component Value Reference Range Notes Complete Blood Count Auto Di ff Reviewed date:12/29/2024 04:48:03 PM Interpretation: Performing Lab:[facility], [address] [place] [phone] Notes/Report: White Blood Count 7.6 4.8-10.8 X10*3/uL [...] NRBC Abs Auto 0.000 0.0-0.012 X10*3/uL [facility]. Panel Fa st Reviewed date:12/29/2024 12:54:03 PM Interpretation: Performing Lab:[address] [address] Notes/Report: Sodium 141 135-145 mmol/L Potassium 3.9 [...] Panel Reviewed date:12/28/2024 05:26:42 PM Interpretation: Performing Lab:[address] [id number] Notes/Report: Triglycerides 162 <150 mg/dL Desirable Triglyceride: [...] Total Reviewed date:12/28/2024 05:27:09 PM Interpretation: Performing Lab:[address] [address] Notes/Report: Vitamin D 25-OH Total 32.0 >30 [...] Random Reviewed date:12/28/2024 05:26:30 PM Interpretation: Performing Lab:[address] [address] Notes/Report: Creatinine Urine 211.98 Microalbumin Urine 105.0 Microalbum/Creatinine Ratio Ur 49.5 <30 ug/mg cr Albumin/Creatinine Ratio Reference Ranges: Normal: < 30 ug/mg creatinine Microalbuminuria: 30 - 300 ug/mg creatinine Clinical Albuminuria: > 300 ug/mg creatinine Hemoglobin A1c Reviewed date:12/28/2024 05:17:57 PM Interpretation: Performing Lab:[facility], [address], [place] [address] Notes/Report: Hemoglobin A1c % 7.6 <6.0 % [...] average glucose, using the formula of the T0F-Osuqoyd Average Glucose study (ADAG), Diabetes Care, Vol.31,#8, Jun. 2007 REASON FOR VISIT FASTING LABS Encounters Encounter Location Date Provider Diagnosis Mal Yin MD [address] [place] [address] [place] [id number] 12/28/2024 Mal Yin Blood tests for rout [...] Details Provider Name:Mal quispe, 06/25/2025 08:00:00 AM, [address] [place] [address], [address], [place], [place], [phone], Provider Name:Mal quispe, 07/02/2025 01:30:00 PM, [address], [address], [place], [place], [phone], Provider Name:Mal George ier, 12/28/2025 08:00:00 AM, [address], [address], [place], [place], [phone], Provider Name:Mal George ier, 01/04/2026 02:30:00 PM, [address], [address], [place], [phone], Progress Notes * CLINESuzycatarinoieDOB:[birth year] (64 yo F)Acc No.[id number]:12/28/2024 Progress Note Patient:?Suzy CLINEdavion phong Provider:?Mal Yin MD :1960???Age:64 Y???Sex:Female D ate:12/28/2024 Address:[address] [place] [address], [address] Subjective: * Chief Complaints: * ???1. FASTING [...] Time - 12/28/2024 08:00 AM) ?LAB: [facility]. Panel Fast (Collection Date & Time - [...] & Time 12/28/2024 08:00 AM) ?LAB: [facility]. Panel Fast (Collection Date & Time 12/28/2024 [...] & Time 12/28/2024 08:00 AM) ?LAB: [facility]. Panel Fast (Collection Date & Time 12/28/2024 [...] Time - 12/28/2024 08:00 AM) ?LAB: [facility]. Panel Fast (Collection Date & Time 12/28/2024 [...] Time - 12/28/2024 08:00 AM) ?LAB: [facility]. Panel Fast (Collection Date & Time 12/28/2024 08:00 AM) ?LAB: Lipid Panel (Collection Date & Time 12/28/2024 08:00 AM) ?LAB: Vitamin D 25-OH Total (Collection Date & Time 12/28/2024 08:00 AM) ?LAB: Microalbumin, Random (Collection & Time 12/28/2024 08:00 AM) ?LAB: Hemoglobin A1c (Collection Date & Time - 12/28/2024 08:00 AM) * Procedure Codes:?15530 VENIP UNCT, ROUTINE* * * The named appointment provid er may or may not be the originator of this progress note, and it is not deemed complete until electronically signed by the appointment provider. Sign off status: Pending * Provider:?Mal Yin MD Date:?0 12/28/2024 Generated for Erick kim/Scott/eTtrinysmitting on:?03/11/2025 06:27 AM EDT
--- OUTSIDE RECORDS SUMMARY | 2025-03-11 06:28 | XMS_ITS ---
Author Organization Mal Yin MD Address [address] [place], [place] [phone] Care Team Providers Care Heel Builder Machine Name Role Phone Mal Yin Primary Care Provider Allergies No Known Allergies Results Component Value Reference Range Notes Calcium Reviewed date:12/31/2024 04:05:15 PM Interpretation: Performing Lab:[facility], [address] [place] [phone] Notes/Report: Calcium 9.2 8.4-10.2 mg/dL REASON FOR [...] Date Provider Diagnosis Mal Yin MD [address] [place], [place] [phone] 12/31/2024 Mal Yin Hypercalcemia E83.52 ; Annual [...] Reason: Provider Name:Mal quispe, 06/25/2025 08:00:00 AM, [address] [place] [address] Drive, [address], [place], [place], [phone], Provider Name:Mal quispe, 07/02/2025 01:30:00 PM, [address], [address], [place], [phone], Provider Name:Mal George jose enrique, 12/28/2025 08:00:00 AM, [address], [address], [place], [phone], Provider Name:Mal George jose enrique, 01/04/2026 02:30:00 PM, [address], [address], [place], [phone], Progress Notes * Danie CLINEOB:[birth year] (64 yo F)Acc No.[id number]:12/31/2024 Progress Notes Patient:?CLINEAnnita KOENIG phong Provider:?Mal Yin MD :1960???Age:64 Y???Sex:Female D ate:12/31/2024 Address:[address] [place] [address], [address] Subjective: * Chief Complaints: * ???ANNUAL EXAMRepeat [...] List reviewed and reconciled with the patientNot-Taking/PRN Omeprazole 40 MG Capsule Delayed Release 1 [...] Auto 0.000 0.0-0. 012 - X10*3/uL ???Lab:[facility]. P darren Fast (Order Date - 12/28/2024) [...] mg/dL ?Urine Blood Negative Negative - ?Specific Mallory - Urine 1.020 1.005-1.025 - ?Urine Protein [...] normal, no murmurs.?LUNGS:?clear to auscultation bilaterally.?BREASTS:?done by wic site coordinator.?ABDOMEN:?soft, nontender, nondistended, bowel sounds present, normal, no organomegaly , no masses palpable.?RECTAL EXAM:?done by wic site coordinator.?FEMALE GENITOURINARY:?done by wic site coordinator.?EXTREMITIES:?no clubbing, cyanosis, or edema.?NEUROLOGIC:?nonfocal, motor strength normal [...] 6.?Depression screening? Notes: negative screen?? * Procedure Codes:?62812 VENIP UNCT, ROUTINE* * Preventive Medicine:? ??Diabetes [...] MD Date:?0 12/31/2024 Generated for Erick kim/Scott/Mariesmitting on:?03/11/2025 06:28 AM EDT History and Physical Notes * [...] cyanosi s, or edema BREASTS: done by wic site coordinator RECTAL EXAM: done by wic site coordinator FEMALE GENITOURINARY: done by wic site coordinator ORAL CAVITY: mucosa moist
--- OUTSIDE RECORDS SUMMARY | 2025-03-11 06:28 | XMS_ITS | Clinical Summary ---
Author Organization [facility] Facility Address [address] [address] Care Team Providers Care Wafer Substrate Tester Name Role Phone Mal Yin MD Primary [...] Insurance [employer] [employer] Care Teams Wafer Substrate Tester Relationship Specialty Start Date End Date Mal Yin MD [address] [place], [place] PCP - General Internal Medicine 12/20/21
--- OUTSIDE RECORDS SUMMARY | 2025-03-11 06:28 | XMS_ITS ---
Author Organization Mal Yin MD Address [address] [place], [place] [phone] Care Team Providers Care Senior Telecommunications Specialist Name Role Phone Mal Yin Primary Care Provider [phone] REASON FOR VISIT PT 1 form Encounters Encounter Location Date Provider Diagnosis Mal Yin MD [address] [place], [place] [phone] 02/25/2025 Mal Yin Plan Of Treatment Next Appt Details Provider Name:Mal George ieana, 06/25/2025 08:00:00 AM, [address] [place] [address], [address] [place] [address], [phone], Provider Name:Mal George ier, 07/02/2025 01:30:00 PM, [address] [place] [address], [address] [place] [address], [phone], Provider Name:Mal George ier, 12/28/2025 08:00:00 AM, [address] [place] [address], [place] [address], [place], [place], [phone], Provider Name:Mal quispe, 01/04/2026 02:30:00 PM, [address] [place] [address], [address], [phone], Progress Notes * Danie CLINEOB:[birth year] (64 yo F)Acc No.[id number]:02/25/2025 Patient:?Annita CLINE :1960???Age:64 Y???Sex:Female Address:[address] [place] [address], [place] [address], [place], [address] * true * Date:? Generated for Erick kim/Scott/eTransmitting on:?03/11/2025 06:28 AM EDT
== END 2025-03-11 06:25 | disposition home or self-care (01) ==
LOC: CF 06:24
PROVIDERS: Visit Provider Internal Medicine
DX: M17.0 Bilateral primary osteoarthritis of knee (principal); M25.561 Pain in right knee; M25.562 Pain in left knee; M79.7 Fibromyalgia; E11.42 Type 2 diabetes mellitus with diabetic polyneuropathy
CPT/HCPCS: 20610; J7323; Q9967

== ENCOUNTER 2025-03-11 12:01 | Outpatient (AMB) | payer OTHER, SELFPAY ==
--- NOTE | 2025-03-11 12:18 | MHC.OFFVIS ---
Vital Signs 03/11/25 12:23 03/11/25 13:05 Height 5 ft 4 in BP 122/60 130/62 Blood Pressure Location Rt brachial Rt brachial Position Sitting Sitting Pulse 79 75 Pulse Source Pulse Oximeter Pulse Oximetry (%) 98 98 Oxygen Delivery Method Room Air Room Air Intake Visit Reasons: L knee Euflexxa inj w/ fluoro (2nd) Allergies GEL ELECTRODES Allergy (Mild, Uncoded 03/15/25 12:16) RASH PFSH Medical History Arthritis Anemia GI bleed Temporal headache Urinary incontinence Chronic constipation Fibromyalgia Primary osteoarthritis of knees, bilateral NAFLD (nonalcoholic fatty liver disease) Tubular adenoma of colon Essential hypertension Neuropathy Osteoarthritis DARIEL on CPAP Upper GI bleed Hepatomegaly History of alcohol abuse Stroke Depression Anxiety Hyperlipidemia LDL goal <70 Obesity with body mass index of 30.0-39.9 Type 2 diabetes mellitus with diabetic polyneuropathy Surgical History History of temporal artery biopsy Hx of esophagogastroduodenoscopy Hx of colonoscopy Family History Father Diabetes Mother Hypertension Daughter Breast cancer Ovarian cancer Social History Household Members: Family Household Members Other:: adult child and grandchild Are you a primary care transitions manager to a significant other at home: No Do you presently have visiting nurse or other home services: No Alcohol intake: former Patient Tobacco Use Status: Former Tobacco user Years Smoked: quit 10 years ago Current occupational status: disabled Current occupation: rt handed Physical Exam Vital Signs: Last Vital Signs Pulse 75 03/11/25 13:05 BP 130/62 03/11/25 13:05 Pulse Ox 98 03/11/25 13:05 Oxygen Delivery Method Room Air 03/11/25 13:05 Office Procedures AMB Joint Injection/Aspiration Joint Injection/Aspiration Primary Site: left knee Prep: site was prepped using sterile technique Approach Used: medial parapatellar ((Fluoro guided)) Procedure: The patient tolerated the procedure well Coding 09145 - Large joint Procedure code (CPT) selection complete Office Meds Euflexxa 10 mg/mL (mw 2.4-3.6 million) intra-articular syringe Performing Provider: Viki Toledo APRN, BALLOON ARTIST Performing Location: [facility] Administered by: Dev Oneill MD on 03/11/25 12:42 Dose Route Admin Location Dispensed Lot Number Expiration Date ND Levers Lace Machine Operator 20 mg intra-articular 2 mL [id number] 02/20/26 [address]-8 [employer] Assessment & Plan Assessment & Plan (1) Primary osteoarthritis of knees, bilateral: Comment: bilateral knee pain Code(s): M17.0 - Bilateral primary osteoarthritis of knee Category: Medical Plan Patient is status post 2nd left knee Euflexxa injection under fluoroscopy. Patient tolerated procedure well and was discharged home in stable condition with discharge instructions. All questions were answered. Orders: Orders FL guidance in treatment room 03/11/25 M25.561 - Pain in right knee, M25.562 - Pain in left knee AMB Hyaluronic Injection 03/11/25 M25.561 - Pain in right knee, M25.562 - Pain in left knee Coding Level of Care Code Procedure Only Diagnoses Primary osteoarthritis of knees, bilateral M17.0 CPT Codes Coding - 18050 Large joint: 50038 - Large joint ([id number])
[2025-03-11 12:23] VITALS: BP 122/60; PULSE 79; O2SAT 98
[2025-03-11 13:05] VITALS: BP 130/62; PULSE 75; O2SAT 98
--- OUTSIDE RECORDS SUMMARY | 2025-03-11 13:29 | XMS_ITS | Clinical Summary ---
Author Organization [facility] Facility Address [address] [address] Care Team Providers Care Consultant Intern Name Role Phone Mal Yin MD Primary [...] Insurance [employer] Care Teams Consultant Intern Relationship Specialty Start Date End Date Mal Yin MD [address] [place], [place] PCP - General Internal Medicine 12/20/21
== END 2025-03-11 13:05 | disposition home or self-care (01) ==
PROVIDERS: PCP Internal Medicine; Visit Provider Internal Medicine
DX: M25.561 Pain in right knee (principal); M25.562 Pain in left knee
CPT/HCPCS: 20610; 77002

== ENCOUNTER 2025-03-15 12:00 | Outpatient (AMB) | payer OTHER, SELFPAY ==
--- NOTE | 2025-03-15 12:11 | A.OFFVIS_ITS ---
Vital Signs 03/15/25 12:13 Height 5 ft 4 in Weight 190 lb BMI 32.6 BP 194/79 H Blood Pressure Location Lt brachial Position Sitting Respiration 16 Pulse 85 Pulse Source Pulse Oximeter Pulse Oximetry (%) 99 Oxygen Delivery Method Room Air Intake Visit Reasons: HIP & SHOULDER INJECTION Materials Planner Required: No Waiter/Waitress Cabin Class: Waiter/Waitress Cabin Class Present Accompanied by: Tan Mendez Allergies GEL ELECTRODES Allergy (Mild, Uncoded 03/18/25 12:24) RASH Medication List - Last Reconciled 03/15/25 by Monica Brock LPN acetaminophen (Tylenol Extra Strength) 500 mg PO Q6H PRN alcohol swabs pad topical amlodipine 2.5 mg PO DAILY aspirin 81 mg PO DAILY atenolol 50 mg PO DAILY atorvastatin 40 mg PO DAILY@1700 blood sugar diagnostic (FreeStyle Lite Strips) DIRECTED 4 TIMES A DAY blood-glucose sensor (FreeStyle Marty 3 Plus Sensor device) Use daily As directed to monitor glucose blood-glucose,airplane tester,cont (FreeStyle Marty 3 [place]) Use daily As directed to monitor blood glucose qprzevcbtv-xedaldgwplohu-lixg 50-300-40 mg (Fioricet) 1 cap PO Q8H PRN cholecalciferol (vitamin D3) 50 mcg PO DAILY docusate sodium (Colace) 100 mg PO BID empagliflozin (Jardiance) 10 mg PO QAM ferrous sulfate 325 mg PO DAILY flash glucose scanning reader (FreeStyle Marty 2 [place]) As directed flash glucose sensor (FreeStyle Marty 2 Sensor kit) DIRECTED CHANGE EVERY 14 DAYS gabapentin 300 mg PO BID glucagon (Gvoke HypoPen 2-Pack) 1 mg (0.2 mL) subcut ONCE insulin glargine U-300 conc (Toujeo Max U-300 SoloStar) 50 units (0.1667 mL) subcut BEDTIME insulin lispro (Admelog SoloStar U-100 Insulin lispro) 15 u for small meals, 15 u for large, + 2 units for bg>200, + 3 units for BG >250, + 4 units bg >300mg/dl. Of note..for very light meal use only 6 units. subcut 3 times a day; 30 days Knee brace As directed lisinopril 40 mg PO DAILY metformin 500 mg PO BID 90 days pantoprazole (Protonix) 40 mg PO DAILY pen needle, diabetic As directed pen needle, diabetic Use QID As directed semaglutide (Ozempic) 2 mg (0.75 mL) subcut QWEEK sumatriptan succinate mg PO HPI HPI HIP & SHOULDER INJECTION: Details: History of Present Illness The patient is a 64-year-old female presenting with shoulder pain and knee osteoarthritis. She describes a persistent burning sensation in her right shoulder and knee, exacerbated by walking. 25 days ago, she received an injection in the right shoulder and knee using a landmark technique; these interventions provided 2-3 months of relief. The lack of adequate support from her footwear also contributes negatively to her symptoms. Pain Description - Onset and Timing: Ongoing burning sensation without relief, particularly noted upon ambulation; treated with injections 25 days ago. - Quality and Character: Described as burning with no alleviation. - Primary Location: Right shoulder and right knee. - Exacerbating and Relieving Factors: - Exacerbated by walking and activity. - Initial treatments such as gel injections have not been effective. - Interference with Activities: Impacts walking and daily functionality, influenced by lack of supportive footwear. Pain Management - Affect: The persistent pain likely affects the patient's overall mood and well-being. - Analgesia: Injections tried with no relief. Current pain level is burning and persistent. - Adverse Effects: Burning persists without alleviation. - Activities of Daily Living: Pain during walking and activity impacts everyday life. Functional goals are possibly compromised. - Aberrant Drug-Related Behaviors: Not mentioned. [facility] Medical History Arthritis Anemia GI bleed Temporal headache Urinary incontinence Chronic constipation Fibromyalgia Primary osteoarthritis of knees, bilateral NAFLD (nonalcoholic fatty liver disease) Tubular adenoma of colon Essential hypertension Neuropathy Osteoarthritis DARIEL on CPAP Upper GI bleed Hepatomegaly History of alcohol abuse Stroke Depression Anxiety Hyperlipidemia LDL goal <70 Obesity with body mass index of 30.0-39.9 Type 2 diabetes mellitus with diabetic polyneuropathy Surgical History History of temporal artery biopsy Hx of esophagogastroduodenoscopy Hx of colonoscopy Family History Father Diabetes Mother Hypertension Daughter Breast cancer Ovarian cancer Social History Household Members: Family Household Members Other:: adult child and grandchild Are you a primary care professionals to a significant other at home: No Do you presently have visiting nurse or other home services: No Alcohol intake: former Patient Tobacco Use Status: Former Tobacco user Years Smoked: quit 10 years ago Current occupational status: disabled Current occupation: rt handed Physical Exam Vital Signs: Last Vital Signs Pulse 85 03/15/25 12:13 Resp 16 03/15/25 12:13 BP 194/79 H 03/15/25 12:13 Pulse Ox 99 03/15/25 12:13 Oxygen Delivery Method Room Air 03/15/25 12:13 BMI result Body Mass Index 32.6 Office Procedures AMB Joint Injection/Aspiration Joint Injection/Aspiration Primary Site: right shoulder (US guided) Secondary Site: right knee Prep: site was prepped using sterile technique Injected: 20 mg of, Kenalog, with 3 mL of (ropivacaine 0.25%), in the joint and in the subcromial space Approach Used: posterolateral (US guided shoulder injection) Procedure: The patient tolerated the procedure well Coding Details: US image of shoulder injection saved. - Large joint - Acromioclavicular with ultrasound guidance Procedure code (CPT) selection complete Assessment & Plan Assessment & Plan (1) Bilateral shoulder pain: Code(s): M25.511 - Pain in right shoulder; M25.512 - Pain in left shoulder Category: Medical (2) Bilateral knee pain: Code(s): M25.561 - Pain in right knee; M25.562 - Pain in left knee Category: Medical Plan Plan - Administered right subacromial bursa (US guided) and right intra-articular knee (landmark guided) injections with Kenalog today - Advised for supportive footwear to improve lower limb support. - Reassess and follow up on shoulder and knee pain management. Patient was informed and verbally consented to the use of an ambient scribe for clinic note documentation during this visit. Discussion Notes I discussed with the patient the ongoing issues with her shoulder pain and knee osteoarthritis, specifically focusing on the inadequacy of past injections in providing relief. I informed her about today?s subacromial injection, explaining the risks, benefits, and expected outcomes. She consented to proceed after understanding the procedure. We reviewed the importance of supportive footwear and discussed follow-up plans to monitor her response to the treatments. Patient Instructions - Wear supportive footwear with good arch and ankle support to help alleviate pain. - Follow up as scheduled to reassess pain and treatment efficacy. - Report any significant changes in pain or new symptoms promptly. - Avoid activities that exacerbate the pain whenever possible. Coding Level of Care Code Procedure Only Diagnoses Bilateral shoulder pain M25.511; M25.512 Bilateral knee pain M25.561; M25.562 CPT Codes Coding - 34930 Large joint: 98562 - Large joint ([id number]) Coding - Joint 6: 52057 - Acromioclavicular with ultrasound guidance ([id number])
[2025-03-15 12:13] VITALS: BP 194/79; PULSE 85; RESP 16; O2SAT 99; BMI 32.6
--- OUTSIDE RECORDS SUMMARY | 2025-03-15 12:37 | XMS_ITS | Clinical Summary ---
Author Organization [facility] Facility Address [address] [address] Care Team Providers Care Site Engineer Name Role Phone Mal Yin MD [...] Insurance [employer] [employer] Care Teams Site Engineer Relationship Specialty Start Date End Date Mal Yin MD [address] [place], [place] PCP - General Internal Medicine 12/20/21
== END 2025-03-15 12:58 | disposition home or self-care (01) ==
LOC: HO.PMC 12:01
PROVIDERS: PCP Internal Medicine; Visit Provider Internal Medicine
DX: M25.511 Pain in right shoulder (principal); M25.561 Pain in right knee
CPT/HCPCS: 20610

== ENCOUNTER → 2025-03-15 12:00 | Outpatient (BNVA) | payer OTHER, SELFPAY | PROVIDERS: PCP Internal Medicine; Visit Provider Internal Medicine | DX: M25.511 Pain in right shoulder (principal); M25.561 Pain in right knee; M25.512 Pain in left shoulder; M25.562 Pain in left knee | CPT/HCPCS: 20610; 20611 ==

== ENCOUNTER 2025-03-18 06:25 | Outpatient (REF) | payer OTHER, SELFPAY ==
--- NOTE | ~2025-03-18 | FL_ITS ---
EXAMINATION: XR FLUOROSCOPY WITH IMAGES CLINICAL INFORMATION: Left knee pain, pain management injection. COMPARISON: None available. TECHNIQUE: Fluoroscopy provided to: Dr. Oneill Fluoroscopy time: 0.0 minutes DAP: [id number] mGycm2 Images: 1 FINDINGS: Solitary image left (marked left on image) knee during pain management injection. Please refer to the full operative report for details. FL/FL guidance in treatment room IMPRESSION: Fluoroscopic guidance. Electronically signed by: Filippo Givens MD 03/18/2025 03:55 PM EDT
== END 2025-03-18 06:26 | disposition home or self-care (01) ==
LOC: CF 06:25
PROVIDERS: Visit Provider Internal Medicine
DX: M17.0 Bilateral primary osteoarthritis of knee (principal); M25.562 Pain in left knee; M25.561 Pain in right knee
CPT/HCPCS: 20610; J7323; Q9967

== ENCOUNTER 2025-03-18 12:19 | Outpatient (AMB) | payer OTHER, SELFPAY ==
[2025-03-18 12:24] VITALS: BP 138/58; PULSE 71; RESP 16; O2SAT 98
--- NOTE | 2025-03-18 12:24 | A.OFFVIS_ITS ---
Vital Signs 03/18/25 12:24 03/18/25 13:09 BP 138/58 L 110/58 L Blood Pressure Location Rt brachial Lt brachial Position Sitting Sitting Respiration 16 16 Pulse 71 69 Pulse Source Pulse Oximeter Pulse Oximeter Pulse Oximetry (%) 98 98 Oxygen Delivery Method Room Air Room Air Intake Visit Reasons: L knee Euflexxa inj w/ fluoro (3rd) Allergies GEL ELECTRODES Allergy (Mild, Uncoded 03/18/25 12:24) RASH Medication List - Last Reconciled 03/18/25 by Monica Brock LPN acetaminophen (Tylenol Extra Strength) 500 mg PO Q6H PRN alcohol swabs pad topical amlodipine 2.5 mg PO DAILY aspirin 81 mg PO DAILY atenolol 50 mg PO DAILY atorvastatin 40 mg PO DAILY@1700 blood sugar diagnostic (FreeStyle Lite Strips) DIRECTED 4 TIMES A DAY blood-glucose sensor (FreeStyle Marty 3 Plus Sensor device) Use daily As directed to monitor glucose blood-glucose,facs teacher,cont (FreeStyle Marty 3 [place]) Use daily As directed to monitor blood glucose ssahjyxuwg-sfoubkoacogys-uebc 50-300-40 mg (Fioricet) 1 cap PO Q8H PRN cholecalciferol (vitamin D3) 50 mcg PO DAILY docusate sodium (Colace) 100 mg PO BID empagliflozin (Jardiance) 10 mg PO QAM ferrous sulfate 325 mg PO DAILY flash glucose scanning reader (FreeStyle Marty 2 [place]) As directed flash glucose sensor (FreeStyle Marty 2 Sensor kit) DIRECTED CHANGE EVERY 14 DAYS gabapentin 300 mg PO BID glucagon (Gvoke HypoPen 2-Pack) 1 mg (0.2 mL) subcut ONCE insulin glargine U-300 conc (Toujeo Max U-300 SoloStar) 50 units (0.1667 mL) subcut BEDTIME insulin lispro (Admelog SoloStar U-100 Insulin lispro) 15 u for small meals, 15 u for large, + 2 units for bg>200, + 3 units for BG >250, + 4 units bg >300mg/dl. Of note..for very light meal use only 6 units. subcut 3 times a day; 30 days Knee brace As directed lisinopril 40 mg PO DAILY metformin 500 mg PO BID 90 days pantoprazole (Protonix) 40 mg PO DAILY pen needle, diabetic As directed pen needle, diabetic Use QID As directed semaglutide (Ozempic) 2 mg (0.75 mL) subcut QWEEK sumatriptan succinate mg PO HPI HPI L knee Euflexxa inj w/ fluoro (3rd): Details: Patient presents for scheduled procedure. Denies any recent cough, cold, infection, fever or other significant changes in medical history since last office visit. [facility], [facility] Medical History Arthritis Anemia GI bleed Temporal headache Urinary incontinence Chronic constipation Fibromyalgia Primary osteoarthritis of knees, bilateral NAFLD (nonalcoholic fatty liver disease) Tubular adenoma of colon Essential hypertension Neuropathy Osteoarthritis DARIEL on CPAP Upper GI bleed Hepatomegaly History of alcohol abuse Stroke Depression Anxiety Hyperlipidemia LDL goal <70 Obesity with body mass index of 30.0-39.9 Type 2 diabetes mellitus with diabetic polyneuropathy Surgical History History of temporal artery biopsy Hx of esophagogastroduodenoscopy Hx of colonoscopy Family History Father Diabetes Mother Hypertension Daughter Breast cancer Ovarian cancer Social History Household Members: Family Household Members Other:: adult child and grandchild Are you a primary occasional caregiver to a significant other at home: No Do you presently have visiting nurse or other home services: No Alcohol intake: former Patient Tobacco Use Status: Former Tobacco user Years Smoked: quit 10 years ago Current occupational status: disabled Current occupation: rt handed Physical Exam Vital Signs: Last Vital Signs Pulse 71 03/18/25 12:24 Resp 16 03/18/25 12:24 BP 138/58 L 03/18/25 12:24 Pulse Ox 98 03/18/25 12:24 Oxygen Delivery Method Room Air 03/18/25 12:24 Office Procedures AMB Joint Injection/Aspiration Joint Injection/Aspiration Primary Site: left knee Prep: site was prepped using sterile technique Injected: 20 mg of (Euflexxa), with 0.25 mL of (Omnipaque 180) and in the joint Approach Used: lateral parapatellar (Fluoroscopy Guided with arthrogram) Procedure: The patient tolerated the procedure well Coding 77954 - Large joint Procedure code (CPT) selection complete Office Meds Euflexxa 10 mg/mL (mw 2.4-3.6 million) intra-articular syringe Performing Provider: Viki Toledo APRN, PRACTICAL NURSING TEACHER Performing Location: [facility] Administered by: Dev Oneill MD on 03/18/25 12:50 Dose Route Admin Location Dispensed Lot Number Expiration Date NDC Insulator Helper 20 mg intra-articular 2 mL [id number] 02/20/26 Assessment & Plan Assessment & Plan (1) Primary osteoarthritis of knees, bilateral: Comment: bilateral knee pain Code(s): M17.0 - Bilateral primary osteoarthritis of knee Category: Medical Plan Patient is status post left knee Euflexxa injection #3. Patient tolerated procedure well and was discharged home in stable condition with discharge instructions. All questions were answered. We will follow-up via telephone or in clinic to assess response to therapy. A follow-up appointment was made during today's visit. Orders: Orders AMB Hyaluronic Injection Today M25.561 - Pain in right knee, M25.562 - Pain in left knee FL guidance in treatment room Today M25.561 - Pain in right knee, M25.562 - Pain in left knee Coding Level of Care Code Procedure Only Diagnoses Primary osteoarthritis of knees, bilateral M17.0 CPT Codes Coding - 89269 Large joint: 81702 - Large joint ([id number])
[2025-03-18 13:09] VITALS: BP 110/58; PULSE 69; RESP 16; O2SAT 98
--- OUTSIDE RECORDS SUMMARY | 2025-03-18 13:09 | XMS_ITS | Clinical Summary ---
Author Organization [facility] Facility Address [address] [address] Care Team Providers Care Security Assessor Name Role Phone Mal Yin MD Primary [...] Insurance [employer] Care Teams Security Assessor Relationship Specialty Start Date End Date Mal Yin MD [address] [place], [place] PCP - General Internal Medicine 12/20/21
== END 2025-03-18 13:14 | disposition home or self-care (01) ==
LOC: HO.PMCPRC 12:19
PROVIDERS: PCP Internal Medicine; Visit Provider Internal Medicine
DX: M25.561 Pain in right knee (principal); M25.562 Pain in left knee
CPT/HCPCS: 20610; 77002

== ENCOUNTER 2025-04-14 10:04 | Outpatient (AMB) | payer OTHER, SELFPAY ==
[2025-04-14 10:15] VITALS: BP 142/65; PULSE 72; RESP 16; O2SAT 99; BMI 28.1
--- NOTE | 2025-04-14 10:15 | MHC.OFFVIS ---
Vital Signs 04/14/25 10:15 Height 5 ft 4 in Weight 164 lb BMI 28.1 BP 142/65 H Blood Pressure Location Rt brachial Position Sitting Respiration 16 Pulse 72 Pulse Source Pulse Oximeter Pulse Oximetry (%) 99 Oxygen Delivery Method Room Air Intake Visit Reasons: s/p Euflexxa injections Weld Inspector Required: No Allergies GEL ELECTRODES Allergy (Mild, Uncoded 05/03/25 12:43) RASH Medication List - Last Reconciled 04/14/25 by Monica Brock LPN acetaminophen (Tylenol Extra Strength) 500 mg PO Q6H PRN alcohol swabs pad topical amlodipine 2.5 mg PO DAILY aspirin 81 mg PO DAILY atenolol 50 mg PO DAILY atorvastatin 40 mg PO DAILY@1700 blood sugar diagnostic (FreeStyle Lite Strips) DIRECTED 4 TIMES A DAY blood-glucose sensor (FreeStyle Marty 3 Plus Sensor device) Use daily As directed to monitor glucose blood-glucose,clinical applications manager,cont (FreeStyle Marty 3 [place]) Use daily As directed to monitor blood glucose bqamjhkecr-nvgvpokgzzkjp-zprb 50-300-40 mg (Fioricet) 1 cap PO Q8H PRN cholecalciferol (vitamin D3) 50 mcg PO DAILY docusate sodium (Colace) 100 mg PO BID empagliflozin (Jardiance) 10 mg PO QAM ferrous sulfate 325 mg PO DAILY flash glucose scanning reader (FreeStyle Marty 2 [place]) As directed flash glucose sensor (FreeStyle Marty 2 Sensor kit) DIRECTED CHANGE EVERY 14 DAYS gabapentin 300 mg PO BID glucagon (Gvoke HypoPen 2-Pack) 1 mg (0.2 mL) subcut ONCE insulin glargine U-300 conc (Toujeo Max U-300 SoloStar) 50 units (0.1667 mL) subcut BEDTIME insulin lispro (Admelog SoloStar U-100 Insulin lispro) 15 u for small meals, 15 u for large, + 2 units for bg>200, + 3 units for BG >250, + 4 units bg >300mg/dl. Of note..for very light meal use only 6 units. subcut 3 times a day; 30 days Knee brace As directed lisinopril 40 mg PO DAILY metformin 500 mg PO BID 90 days pantoprazole (Protonix) 40 mg PO DAILY pen needle, diabetic As directed pen needle, diabetic Use QID As directed semaglutide (Ozempic) 2 mg (0.75 mL) subcut QWEEK sumatriptan succinate mg PO HPI HPI s/p Euflexxa injections: Details: History of Present Illness The patient is a 64-year-old female presenting with left knee and right shoulder pain following hyaluronic acid injections in her knee and past cortisone injections for her shoulder condition. Initially, the knee injections provided relief for two days, but the pain subsequently worsened, with a burning sensation rated at 10/10. The pain is localized to the knee and extends to the posterior aspect. She reports having benefitted from prior cortisone injections for right shoulder pain due to acromioclavicular arthritis and subacromial bursitis. The shoulder pain is sharp, shooting towards the neck, and is present at rest and during movement. The patient was informed that insurance denied alternative treatments like wire stimulation, but she found cortisone injections beneficial for her shoulder. There is no significant relief from knee injections, indicating ongoing management challenges for knee osteoarthritis. Pain Description - Onset and Timing: Knee pain recurrent with initial relief post-injection; right shoulder pain ongoing - Quality and Character: Burning pain in the knee, sharp pain in the shoulder - Primary Location: Left knee and right shoulder - Areas of Radiation: Knee pain to the back, shoulder pain towards the neck - Exacerbating Factors: Movement and lying down aggravate shoulder pain - Relieving Factors: Shoulder pain temporarily relieved by cortisone injections - Activities of Interference: Daily activities limited by pain severity Physical Exam - Musculoskeletal- - Tenderness to palpation over the right acromioclavicular joint - Tenderness along the right supraspinatus tendon - Limited range of motion of the right shoulder Pain Management - Affect: Pain negatively affecting patient's quality of life and daily activities - Analgesia: Limited relief from hyaluronic acid injections in the knee; relief from past cortisone injections in the shoulder - Adverse Effects: None reported - Activities of Daily Living: Activities hindered by pain; injections provide temporary functional improvement - Aberrant Drug-Related Behaviors: None reported [facility] Medical History Arthritis Anemia GI bleed Temporal headache Urinary incontinence Chronic constipation Fibromyalgia Primary osteoarthritis of knees, bilateral NAFLD (nonalcoholic fatty liver disease) Tubular adenoma of colon Essential hypertension Neuropathy Osteoarthritis DARIEL on CPAP Upper GI bleed Hepatomegaly History of alcohol abuse Stroke Depression Anxiety Hyperlipidemia LDL goal <70 Obesity with body mass index of 30.0-39.9 Type 2 diabetes mellitus with diabetic polyneuropathy Surgical History History of temporal artery biopsy Hx of esophagogastroduodenoscopy Hx of colonoscopy Family History Father Diabetes Mother Hypertension Daughter Breast cancer Ovarian cancer Social History Household Members: Family Household Members Other:: adult child and grandchild Are you a primary home care scheduler to a significant other at home: No Do you presently have visiting nurse or other home services: No Alcohol intake: former Patient Tobacco Use Status: Former Tobacco user Years Smoked: quit 10 years ago Current occupational status: disabled Current occupation: rt handed Physical Exam Vital Signs: Last Vital Signs Pulse 72 04/14/25 10:15 Resp 16 04/14/25 10:15 BP 142/65 H 04/14/25 10:15 Pulse Ox 99 04/14/25 10:15 Oxygen Delivery Method Room Air 04/14/25 10:15 BMI result Body Mass Index 28.1 Assessment & Plan Assessment & Plan (1) Primary osteoarthritis of knees, bilateral: Comment: bilateral knee pain Code(s): M17.0 - Bilateral primary osteoarthritis of knee Category: Medical (2) Acromioclavicular joint arthritis: Code(s): M19.019 - Primary osteoarthritis, unspecified shoulder Category: Medical (3) Bilateral shoulder pain: Code(s): M25.511 - Pain in right shoulder; M25.512 - Pain in left shoulder Category: Medical Plan Plan - Arrange for cortisone injection for the right shoulder, targeting acromioclavicular arthritis and subacromial bursitis, based on past efficacy. - Avoid further hyaluronic acid injections for the left knee at this time due to the lack of significant benefit. - Re-assessment of alternative treatment strategies for knee osteoarthritis. Patient was informed and verbally consented to the use of an ambient scribe for clinic note documentation during this visit. Discussion Notes The patient was informed of the limited efficacy of hyaluronic acid injections for her left knee based on reported outcomes. She was advised that the cortisone injection plan for her right shoulder, addressing acromioclavicular arthritis and subacromial bursitis, has proven effective previously. We discussed the patient?s insurance denial for alternative treatments such as wire stimulation. Importance was given to monitoring her progress and pain management outcomes following treatments. Patient Instructions - Return for scheduled right shoulder cortisone injection. - Monitor pain levels and report any further deterioration. - Avoid expecting significant relief from knee injections; discuss alternative options during follow-up. - Follow up as necessary for adjustments to pain management strategies. Coding Level of Care Code Est Pt Level 3 (82849) Diagnoses Primary osteoarthritis of knees, bilateral M17.0 Acromioclavicular joint arthritis M19.019 Bilateral shoulder pain M25.511; M25.512
--- OUTSIDE RECORDS SUMMARY | 2025-04-14 11:19 | XMS_ITS | Clinical Summary ---
Author Organization [facility] Address [address] [place] [address] Phone Care Team Providers Care Casing Soaker Name Role Phone Noe Yin MD Primary Care Provider [phone] Social History Tobacco Use Types Packs/Day Years Used Date Smoking Tobacco: Never Assessed Comments Unknown Sex and Gender Information Value Date Recorded Sex Assigned at Not on file Legal Sex Female 9:06 AM EST Gender Identity Not on file Sexual Orientation Not on file Plan of Treatment Upcoming Encounters Date Type Department Care Team (Late st Contact Info) Description 06/02/2025 1:30 PM EDT Consult Orthopedic Surgery - [place] [address] [phone] Yung Richey, DPM [address] [phone] Health Maintenance Due Date Last Done Comments Breast Cancer Screening 1960 Diabetes: Annual GFR (Glomer ular Filtration Rate) 1960 Diabetes: Annual Foot Exam 1970 Diabetes: Annual Retina Eye Exam 1970 DTaP,Tdap,and Td Vaccines (1 - Tdap) 1979 Pneumococcal Vaccine: 50+ Ye ars (1 of 2 - PCV) 1979 Pneumococcal Vaccine: Pediat rics (0 to 5 Years) and At-Risk Patients (6 to 64 Years) (1 of 2 - PCV) 1979 Cervical Cancer Screening: P ap Smear 1981 Zoster Vaccines (1 of 2) 2010 RSV Immunization Adult Patie nts (1 - Risk 60-74 years 1-dose series) 2020 COVID-19 Vaccine (1 - 2023-2 5 season) 2024 Cholesterol Screening (Lipid Panel) 03/17/2025 Colorectal Cancer Screening: Colonoscopy 03/17/2025 Depression Screening 03/17/2025 Diabetes: Annual Urine Albumin-Creatinine Ratio (uACR) 03/17/2025 Diabetes: Blood Sugar Contro l Test (HGBA1C) 03/17/2025 HIV Screening 03/17/2025 Hepatitis C Screening 03/17/2025 Social Influencers of Health Screening 03/17/2025 Influenza Vaccine (Season Ended) 2025 HIB Vaccines Aged Out No longer eligi ble based on patient's age to complete this topic HPV Vaccines Aged Out No longer eligi ble based on patient's age to complete this topic Hepatitis A Vaccines Aged Out No long er eligible based on patient's age to complete this topic Hepatitis B Vaccines Aged Out No long er eligible based on patient's age to complete this topic IPV Vaccines Aged Out No longer eligi ble based on patient's age to complete this topic MMR Vaccines Aged Out No longer eligi ble based on patient's age to complete this topic Meningococcal ACWY Vaccine Aged Out N o longer eligible based on patient's age to complete this topic Meningococcal B Vaccine Aged Out No l onger eligible based on patient's age to complete this topic RSV Immunization Patients Un cece 20 months Aged Out No longer eligible b ased on patient's age to complete this topic Varicella Vaccines Aged Out No longer eligible based on patient's age to complete this topic Insurance [facility] [employer] Care Teams Casing Soaker Relationship Specialty Start Date End Date Noe Yin MD [address] [place] [id number] PCP - General Internal Medicine 03/16/25
== END 2025-04-14 10:34 | disposition home or self-care (01) ==
LOC: HO.PMC 10:04
PROVIDERS: PCP Internal Medicine; Visit Provider Internal Medicine
DX: M17.0 Bilateral primary osteoarthritis of knee (principal); M19.019 Primary osteoarthritis, unspecified shoulder; M25.511 Pain in right shoulder; M25.512 Pain in left shoulder
CPT/HCPCS: 99213

== ENCOUNTER → 2025-04-14 10:04 | Outpatient (BNVA) | payer OTHER, SELFPAY | PROVIDERS: PCP Internal Medicine; Visit Provider Internal Medicine | DX: M17.0 Bilateral primary osteoarthritis of knee (principal); M19.011 Primary osteoarthritis, right shoulder; M19.012 Primary osteoarthritis, left shoulder; M25.511 Pain in right shoulder; M25.512 Pain in left shoulder | CPT/HCPCS: 99212 ==

== ENCOUNTER 2025-05-03 12:39 | Outpatient (AMB) | payer OTHER, SELFPAY ==
[2025-05-03 12:41] VITALS: BP 215/93; PULSE 85; RESP 16; O2SAT 98; BMI 28.1
--- NOTE | 2025-05-03 12:41 | A.OFFVIS_ITS ---
Vital Signs 05/03/25 12:41 Height 5 ft 4 in Weight 164 lb BMI 28.1 BP 215/93 H Blood Pressure Location Rt brachial Position Sitting Respiration 16 Pulse 85 Pulse Source Pulse Oximeter Pulse Oximetry (%) 98 Oxygen Delivery Method Room Air Intake Visit Reasons: Rt Shoulder injection Intake Note: Pt's BP is grossly elevated. She states everything hurts Educational Resource Center Teacher: Educational Resource Center Teacher Present Accompanied by: Tan Mendez Allergies GEL ELECTRODES Allergy (Mild, Uncoded 05/03/25 12:43) RASH Medication List - Last Reconciled 05/03/25 by Monica Brock LPN acetaminophen (Tylenol Extra Strength) 500 mg PO Q6H PRN alcohol swabs pad topical amlodipine 2.5 mg PO DAILY aspirin 81 mg PO DAILY atenolol 50 mg PO DAILY atorvastatin 40 mg PO DAILY@1700 blood sugar diagnostic (FreeStyle Lite Strips) DIRECTED 4 TIMES A DAY blood-glucose sensor (FreeStyle Marty 3 Plus Sensor device) Use daily As directed to monitor glucose blood-glucose,rn trauma,cont (FreeStyle Marty 3 [place]) Use daily As directed to monitor blood glucose kerpmkgrmr-mfguzbuilxlmk-zvli 50-300-40 mg (Fioricet) 1 cap PO Q8H PRN cholecalciferol (vitamin D3) 50 mcg PO DAILY docusate sodium (Colace) 100 mg PO BID empagliflozin (Jardiance) 10 mg PO QAM ferrous sulfate 325 mg PO DAILY flash glucose scanning reader (FreeStyle Marty 2 [place]) As directed flash glucose sensor (FreeStyle Marty 2 Sensor kit) DIRECTED CHANGE EVERY 14 DAYS gabapentin 300 mg PO BID glucagon (Gvoke HypoPen 2-Pack) 1 mg (0.2 mL) subcut ONCE insulin glargine U-300 conc (Toujeo Max U-300 SoloStar) 50 units (0.1667 mL) subcut BEDTIME insulin lispro (Admelog SoloStar U-100 Insulin lispro) 15 u for small meals, 15 u for large, + 2 units for bg>200, + 3 units for BG >250, + 4 units bg >30 0mg/dl. Of note..for very light meal use only 6 units. subcut 3 times a day; 30 days Knee brace As directed lisinopril 40 mg PO DAILY metformin 500 mg PO BID 90 days pantoprazole (Protonix) 40 mg PO DAILY pen needle, diabetic As directed pen needle, diabetic Use QID As directed semaglutide (Ozempic) 2 mg (0.75 mL) subcut QWEEK sumatriptan succinate mg PO HPI HPI Rt Shoulder injection: Details: History of Present Illness The patient is a 64-year-old female presenting with right shoulder pain and left knee pain with swelling. The right shoulder pain is being managed with an injection today. The left knee pain is described as burning and swelling, which worsens with movement and at night, affecting her sleep. She has tried using a brace, but it does not provide adequate relief due to swelling. Previous interventions for the left knee included hyaluronic acid injections, which did not provide significant relief. The patient reports difficulty sitting for long periods and experiences pain while walking. Pain Description - Onset: Pain in the left knee and right shoulder - Quality: Burning sensation in the left knee - Location: Left knee and right shoulder - Exacerbating factors: Movement, nighttime - Relieving factors: None effective, brace not helpful - Interference: Difficulty sitting for long periods, pain while walking Physical Exam - Musculoskeletal: Right subacromial bursa visualized using ultrasound, no pain or injection noted during procedure Results Pain Management - Affect: Pain impacts sleep and mobility - Analgesia: Current pain management includes injections, previous hyaluronic acid injections were ineffective - Activities of Daily Living: Difficulty sitting for long periods, pain while walking Procedure - Right shoulder subacromial bursa injection: Patient was placed in a sitting position, right subacromial bursa visualized using ultrasound, 25 gauge needle advanced for ultrasound guidance, 20 mg of Kenalog mixed with 4 mL of 0.25% ropivacaine injected without pain or injection, needle withdrawn, no blood loss, patient tolerated the procedure well [facility] Medical History Arthritis Anemia GI bleed Temporal headache Urinary incontinence Chronic constipation Fibromyalgia Primary osteoarthritis of knees, bilateral NAFLD (nonalcoholic fatty liver disease) Tubular adenoma of colon Essential hypertension Neuropathy Osteoarthritis DARIEL on CPAP Upper GI bleed Hepatomegaly History of alcohol abuse Stroke Depression Anxiety Hyperlipidemia LDL goal <70 Obesity with body mass index of 30.0-39.9 Type 2 diabetes mellitus with diabetic polyneuropathy Surgical History History of temporal artery biopsy Hx of esophagogastroduodenoscopy Hx of colonoscopy Family History Father Diabetes Mother Hypertension Daughter Breast cancer Ovarian cancer Social History Household Members: Family Household Members Other:: adult child and grandchild Are you a primary daycare worker to a significant other at home: No Do you presently have visiting nurse or other home services: No Alcohol intake: former Patient Tobacco Use Status: Former Tobacco user Years Smoked: quit 10 years ago Current occupational status: disabled Current occupation: rt handed Physical Exam Vital Signs: Last Vital Signs Pulse 85 05/03/25 12:41 Resp 16 05/03/25 12:41 BP 215/93 H 05/03/25 12:41 Pulse Ox 98 05/03/25 12:41 Oxygen Delivery Method Room Air 05/03/25 12:41 BMI result Body Mass Index 28.1 Assessment & Plan Assessment & Plan (1) Bilateral shoulder pain: Code(s): M25.511 - Pain in right shoulder; M25.512 - Pain in left shoulder Category: Medical Plan Plan - Follow-up for left knee pain with a corticosteroid injection, as hyaluronic acid injections were ineffective - Monitor response to right shoulder injection and assess for further interventions if necessary Patient was informed and verbally consented to the use of an ambient scribe for clinic note documentation during this visit. Discussion Notes I discussed with the patient the plan to follow up with a corticosteroid injection for her left knee pain, given the lack of relief from previous hyaluronic acid injections. We also reviewed the procedure for the right shoulder injection, which was completed without complications, and the need to monitor its effectiveness. Patient Instructions - Follow up with the clinic for a corticosteroid injection for the left knee - Monitor the response to the right shoulder injection and report any concerns Coding Level of Care Code Procedure Only Diagnoses Bilateral shoulder pain M25.511; M25.512
--- OUTSIDE RECORDS SUMMARY | 2025-05-03 13:05 | XMS_ITS | Clinical Summary ---
Author Organization [facility] Address [address] [place] [address] Phone Care Team Providers Care Instructor Psychiatric Aide Name Role Phone Noe Yin MD Primary Care Provider [phone] Social History Tobacco Use Types Packs/Day Years [...] 1:30 PM EDT Consult Orthopedic Surgery - [place] [address] [phone] Yung Richey, DPM [address] [address] Health Maintenance Due Date Last Done Comments [...] patient's age to complete this topic Insurance [facility] [employer] Care Teams Instructor Psychiatric Aide Relationship Specialty Start Date End Date Noe Yin MD [address] [place] [phone] PCP - General Internal Medicine 03/16/25
--- OUTSIDE RECORDS SUMMARY | 2025-05-03 13:05 | XMS_ITS | Clinical Summary ---
Author Organization [facility] Facility Address [address] [address] Care Team Providers Care [employer]p [employer] Multimedia Sales Name Role Phone Mal Yin MD Primary [...] Insurance [place] Care Teams [employer] Sales Relationship Specialty Start Date End Date Mal Yin MD [id number] [place], [place] PCP - General Internal Medicine 12/20/21
== END 2025-05-03 12:55 | disposition home or self-care (01) ==
LOC: HO.PMC 12:40
PROVIDERS: PCP Internal Medicine; Visit Provider Internal Medicine
DX: M25.511 Pain in right shoulder (principal); M25.512 Pain in left shoulder
CPT/HCPCS: 20611

== ENCOUNTER → 2025-05-03 12:39 | Outpatient (BNVA) | payer OTHER, SELFPAY | PROVIDERS: PCP Internal Medicine; Visit Provider Internal Medicine | DX: M25.511 Pain in right shoulder (principal) | CPT/HCPCS: 20611; J2795; J3301 ==

== ENCOUNTER 2025-05-12 13:44 | Outpatient (AMB) | payer OTHER, SELFPAY ==
--- NOTE | 2025-05-12 13:50 | A.OFFVIS_ITS ---
Vital Signs 05/12/25 13:52 Height 5 ft 4 in Weight 167 lb 8.821 oz BMI 28.8 BP 135/63 Blood Pressure Location Lt brachial Position Sitting Pulse 72 Intake Visit Reasons: follow up GERD/Chronic constipation Intake Note: Delaney presents in the officer as a follow up for GERD and CIC. CC: LLQ stabbing pains and states her GERD is very bad. Leather Cleaner Required: No Allergies GEL ELECTRODES Allergy (Mild, Uncoded 05/12/25 13:52) RASH HPI HPI follow up GERD/Chronic constipation: Details: Patient is a 64-year-old female with PMH of DMII, hypertension, hyperlipidemia, obesity, OA and fibromyalgia. She presents for follow-up of ongoing gastrointestinal issues. Her primary concerns are persistent heartburn despite medication adjustments, new-onset abdominal pain, and ongoing constipation. The patient reports that her heartburn has worsened despite restarting pantoprazole 40 mg daily in February. She states that even uwlb-hvt-vqjlasd remedies like Tums and Pepto-Bismol are not providing relief. Additionally, she has been experiencing a sharp pain in the left lower quadrant that started last week. The pain is intermittent and exacerbated by movement. She denies any recent injury or trauma related to this pain. The patient also mentions ongoing queasiness since her last visit, but denies vomiting. Regarding her constipation, the patient reports some improvement with the addition of a stool softener. She is now having daily bowel movements, but they remain painful and dry. She describes her stools as type 4 on the [place]rick stool chart. Shares apprehension about restarting MiraLax due to experiencing loose stools at last attempt. She denies any blood in her stools or the presence of hemorrhoids. The patient also reports occasional trouble swallowing, which may be related to her history of GERD. She mentions an ER visit in July where she was diagnosed with GERD and prescribed sucralfate. The patient notes that the current pain she experiences in the esophageal area is different from the ulcer pain she had 11 years ago. In terms of medication adherence, the patient is currently taking pantoprazole and omeprazole as prescribed. She mentions taking a large white tablet every morning and afternoon for ulcers, which causes queasiness. The patient's typical daily routine includes breakfast around 8:30 AM, a light lunch, fruit in the afternoon, and dinner around 5:30-6 PM. She experiences queasiness around 10 PM and often has a peanut butter sandwich to prevent low blood sugar. The patient reports that her blood glucose levels generally fluctuate based on her diet, ranging from 69 to 250 after eating sweets. She denies any issues with urination. [facility] Medical History (Updated 05/12/25 @ 18:03 by Lisseth Izquierdo CNP) Abdominal pain Dysphagia Arthritis Anemia GI bleed Temporal headache Urinary incontinence Chronic constipation Fibromyalgia Primary osteoarthritis of knees, bilateral NAFLD (nonalcoholic fatty liver disease) Tubular adenoma of colon Essential hypertension Neuropathy Osteoarthritis DARIEL on CPAP Upper GI bleed Hepatomegaly History of alcohol abuse Stroke Depression Anxiety Hyperlipidemia LDL goal <70 Obesity with body mass index of 30.0-39.9 Type 2 diabetes mellitus with diabetic polyneuropathy Surgical History History of temporal artery biopsy Hx of esophagogastroduodenoscopy Hx of colonoscopy Family History Father Diabetes Mother Hypertension Daughter Breast cancer Ovarian cancer Social History Household Members: Family Household Members Other:: adult child and grandchild Are you a primary healthcare receptionist to a significant other at home: No Do you presently have visiting nurse or other home services: No Alcohol intake: former Patient Tobacco Use Status: Former Tobacco user Years Smoked: quit 10 years ago Current occupational status: disabled Current occupation: rt handed Review of Systems Const Reports as per HPI ENT Reports as per HPI Card Reports as per HPI Resp Reports as per HPI GI Reports as per HPI Reports as per HPI Physical Exam Vital Signs: Last Vital Signs Pulse 72 05/12/25 13:52 BP 135/63 05/12/25 13:52 BMI result Body Mass Index 28.8 Const General: healthy appearing, no acute distress and well developed Nutritional Appearance: well nourished Orientation/consciousness: patient oriented x3 HEENT Head: Yes normal to inspection, Yes normocephalic and Yes atraumatic Face and sinus: Yes normal facial exam Eyes General: appearance normal, both eyes and all related structures Neck Neck: Yes normal visual inspection Resp Effort & Inspection: normal respiratory effort, able to speak in complete sentences, no tracheal deviation and symmetric chest movement Auscultation: clear to auscultation bilaterally Cardio Jugular venous distension: no JVD Rate: regular rate Rhythm: regular rhythm Heart sounds: S1 normal heart sound present, S2 normal heart sound present, no gallops and no murmurs GI Inspection: Yes normal to inspection, No distended and Yes obesity Palpation (GI): Soft to palpation, not firm, Tenderness to palpation present (GI) in the epigastrum and No hepatosplenomegaly present Auscultation: normal bowel sounds Neuro General: patient oriented x3 Gait exam (Neuro): Normal gait present Psych Appearance: grossly normal Mental Status: mental status grossly normal Speech and movement: Normal speech and movement present Affect: normal affect Attitude: cooperative Thought process: Normal thought process present Thought content: Normal thought content present Insight: Good insight present (Psych) Judgement: Good judgement present (Psych) Assessment & Plan Assessment & Plan (1) Chronic constipation: Code(s): K59.09 - Other constipation Category: Medical Plan: Patient reports improvement with stool softener, achieving daily bowel movements. However, stools remain dry and painful, classified as Type 4 on the Warrick stool chart. She is agreeable to restart MiraLax tirated to stools. No blood in stools. History of diverticulosis emphasizes the importance of preventing constipation. Plan: - Continue stool softener once daily in the morning - Add MiraLax every other day Reinforced lifestyle modifications to promote regularity: -higher fiber diet, examples provided -adequate hydration with water -150 minutes of moderate intensity exercise per week (2) Acid reflux: Comment: EGD 06/10/2020: normal upper endoscopy findings. No evidence of esophagitis or suggestion of any Cabrera's disease. Without hiatal hernia Code(s): K21.9 - Gastro-esophageal reflux disease without esophagitis Category: Medical Qualifiers: Esophagitis presence: without esophagitis Qualified Code(s): K21.9 - Gastro-esophageal reflux disease without esophagitis Plan: Patient reports ongoing heartburn despite current treatment with pantoprazole 40 mg daily. Symptoms are not relieved by bzzh-kyb-hwwagpe antacids. There is associated dysphagia and queasiness. A previous swallow study was performed, but uable to locate results. The last endoscopy in June 2020 was normal. The current symptoms warrant further investigation. Plan: - Discontinue sucralfate. If symptoms worsen without sucralfate, restart twice daily - Add famotidine 40 mg PO at bedtime - Continue pantoprazole 40 mg daily - Order barium swallow study urgently - Schedule upper endoscopy Encouraged to take pantoprazole as prescribed, taken at least 30-60 minutes before a meal. Education on GERD prevention : -Advised against heavy meals; encouraged small, frequent meals instead of large ones. - Instructed to remain upright for 2?3 hours after eating. - Advised to avoid late-night meals, spicy foods, caffeine, alcohol, known dietary triggers, and tight-fitting clothing. - Emphasis placed on gradual implementation of lifestyle changes to improve a dherence and symptom control. (3) Abdominal pain: Code(s): R10.9 - Unspecified abdominal pain Category: Medical Qualifiers: Abdominal location: lower abdomen, unspecified Qualified Code(s): R10.30 - Lower abdominal pain, unspecified Plan: New-onset sharp pain in the left lower quadrant, starting last week. Pain is intermittent and exacerbated by movement. No associated injury or trauma reported. The pain differs from previous ulcer pain. Given the history of diverticulosis, this symptom warrants further investigation. Plan: - basic labs ordered - If lab results are concerning or no improvement in pain, we will proceed with abdominal CT scan Plan Follow-up in 8 weeks or sooner as needed Time: I spent a total of 45 minutes on the date of encounter which includes: Preparing to see the patient (reviewed previous documentation, test results and medical history) Performing a medically appropriate exam and/or evaluation Ordering medications, tests, and procedures Documenting clinical information in the health record Orders: Orders IRON PROFILE 05/12/25 D64.9 - Anemia, unspecified Complete Blood Count Auto Diff 05/12/25 D64.9 - Anemia, unspecified Comprehensive [place]. Panel Fast 05/12/25 K59.09 - Other constipation [place] barium swallow 05/12/25 K21.9 - Gastro-esophageal reflux disease without esophagitis, R13.10 - Dysphagia, unspecified Medications: New famotidine Take one tablet at bedtime 40 mg PO BEDTIME 90 tabs 0RF polyethylene glycol 3350 (Miralax) Take 17G (one cap full) daily with 8oz of water 17 grams PO DAILY 510 grams 2RF constipation 30 days Changed From docusate sodium (Colace) 100 mg PO BID 180 caps 0RF To docusate sodium (Colace) Take one tablet daily 90 caps 2RF Refilled pantoprazole (Protonix) 40 mg PO DAILY 90 tabs 1RF Coding Level of Care Code Established Pt Est Pt Level 5 (11146) Patient Type Established Diagnoses Chronic constipation K59.09 Gastroesophageal reflux disease without esophagitis K21.9 Esophagitis presence: without esophagitis Lower abdominal pain R10.30 Abdominal location: lower abdomen, unspecified
[2025-05-12 13:52] VITALS: BP 135/63; PULSE 72; BMI 28.8
--- OUTSIDE RECORDS SUMMARY | 2025-05-12 14:32 | XMS_ITS | Clinical Summary ---
Author Organization [facility] Facility Address [address] [address] Care Team Providers Care Music Copyist Name Role Phone Mal Yin MD Primary [...] Visual Foot Exam 02/06/2022 Influenza Vaccine (#1) 2025 Hepatitis B Vaccine Aged Out No longe r eligible based on patient's age to complete this topic Insurance [place] Care Teams Music Copyist Relationship Specialty Start Date End Date Mal Yin MD [address] [place], [place] PCP - General Internal Medicine 12/20/21
--- OUTSIDE RECORDS SUMMARY | 2025-05-12 14:32 | XMS_ITS | Clinical Summary ---
Author Organization [facility] Address [address] [place] [address] Phone Care Team Providers Care Business Liaison Manager Name Role Phone Noe Yin MD Primary Care Provider [phone] Social History Tobacco Use Types Packs/Day Years [...] 1:30 PM EDT Consult Orthopedic Surgery - [facility] [address] [address] Yung Richey, DPM [address] [address] Health Maintenance Due Date Last Done Comments Breast Cancer Screening 1960 Diabetes: Annual GFR (Glomer ular Filtration Rate) 1960 Diabetes: Annual Foot Exam 1970 Diabetes: Annual Retina Eye Exam 1970 DTaP,Tdap,and Td Vaccines (1 - Tdap) 1979 Pneumococcal Vaccine: 50+ Ye ars (1 of 2 - PCV) 1979 Cervical [...] Influencers of Health Screening 03/17/2025 Influenza Vaccine (#1) 2025 HIB Vaccines Aged Out No longer [...] patient's age to complete this topic Insurance [facility] [employer] Care Teams Business Liaison Manager Relationship Specialty Start Date End Date Noe Yin MD [address] [place] [address] PCP - General Internal Medicine 03/16/25
== END 2025-05-12 15:24 | disposition home or self-care (01) ==
LOC: HO.HGI 13:45
PROVIDERS: PCP Internal Medicine; Visit Provider Nurse Practitioner Family
DX: K59.09 Other constipation (principal); K21.9 Gastro-esophageal reflux disease without esophagitis; R10.30 Lower abdominal pain, unspecified
CPT/HCPCS: 99215

== ENCOUNTER → 2025-05-12 13:44 | Outpatient (BNVA) | payer OTHER, SELFPAY | PROVIDERS: PCP Internal Medicine; Visit Provider Nurse Practitioner Family | DX: K21.9 Gastro-esophageal reflux disease without esophagitis (principal); R10.30 Lower abdominal pain, unspecified; K59.09 Other constipation | CPT/HCPCS: 99212 ==

== ENCOUNTER 2025-05-24 12:38 | Outpatient (AMB) | payer OTHER, SELFPAY ==
[2025-05-24 12:43] VITALS: BP 136/68; PULSE 77; O2SAT 99; BMI 29.1
--- NOTE | 2025-05-24 12:43 | A.OFFVIS_ITS ---
Vital Signs 05/24/25 12:43 Height 5 ft 4 in Weight 169 lb 12.095 oz BMI 29.1 BP 136/68 Blood Pressure Location Rt brachial Position Sitting Pulse 77 Pulse Source Pulse Oximeter Pulse Oximetry (%) 99 Oxygen Delivery Method Room Air Intake Visit Reasons: T2DM Intake Note: Patient present today for Type 2 Diabetes Mellitus Last Diabetic eye exam: Has an appt coming up next month Last Podiatry Visit: Appt coming up on 06/02/2025 Random Glucose: 116 mg/dL HgA1C: 6.8%, 05/24/2025 Tax Representative Required: No Accompanied by: Self / Same As Patient Allergies GEL ELECTRODES Allergy (Mild, Uncoded 05/24/25 12:48) RASH Medication List - Last Reconciled 05/24/25 by Darcy Mason PA-C acetaminophen (Tylenol Extra Strength) 500 mg PO Q6H PRN alcohol swabs pad topical amlodipine 2.5 mg PO DAILY aspirin 81 mg PO DAILY atenolol 50 mg PO DAILY atorvastatin 40 mg PO DAILY@1700 blood sugar diagnostic (FreeStyle Lite Strips) DIRECTED 4 TIMES A DAY blood-glucose sensor (FreeStyle Marty 3 Plus Sensor device) Use daily As directed to monitor glucose blood-glucose,shirring tender,cont (FreeStyle Marty 3 [place]) Use daily As directed to monitor blood glucose smowhpyobf-nkxfaqiprorem-tvry 50-300-40 mg (Fioricet) 1 cap PO Q8H PRN cholecalciferol (vitamin D3) 50 mcg PO DAILY docusate sodium (Colace) Take one tablet daily empagliflozin (Jardiance) 10 mg PO QAM famotidine 40 mg PO BEDTIME ferrous sulfate 325 mg PO DAILY flash glucose scanning reader (FreeStyle Marty 2 [place]) As directed flash glucose sensor (FreeStyle Marty 2 Sensor kit) DIRECTED CHANGE EVERY 14 DAYS gabapentin 300 mg PO BID glucagon (Gvoke HypoPen 2-Pack) 1 mg (0.2 mL) subcut ONCE insulin glargine U-300 conc (Toujeo Max U-300 SoloStar) 50 units (0.1667 mL) subcut BEDTIME insulin lispro (Admelog SoloStar U-100 Insulin lispro) 15 u for small meals, 15 u for large, + 2 units for bg>200, + 3 units for BG >250, + 4 units bg >300mg/dl. Of note..for very light meal use only 6 units. subcut 3 times a day; 30 days Knee brace As directed lancets (FreeStyle Lancets) As directed lisinopril 40 mg PO DAILY metformin 500 mg PO BID 90 days pantoprazole (Protonix) 40 mg PO DAILY pen needle, diabetic As directed pen needle, diabetic Use QID As directed polyethylene glycol 3350 (Miralax) 17 grams PO DAILY 30 days semaglutide (Ozempic) 2 mg (0.75 mL) subcut QWEEK sumatriptan succinate mg PO HPI HPI T2DM: Details: Patient is a 64 yo female with DM type 2 diagnosed 2009, who presents for visit for follow up management of diabetes . Past medical history: HTN, HLD. fibromyalgia, ostearthritis, DARIEL, neuropathy Her a1c is 6.8. Diabetes medications: Ozempic 2 mg Qwkly, Toujeo 50 units, admelog sliding scale 5-10 units with meals, metformin 500 mg twice a day and jardiance 10 mg. She states that this regimen has been very effective for her. Her blood sugars over the last few weeks have been normal and improving. -she is off of invokana due to insurance reasons, she does not like taking higher doses of metformin it causes stomach upset, trulicity caused nausea, lantus ineffective Blood glucose monitoring: G mi 6.2%, average glucose 121 variability 21%. Usage 97%. Very hyperglycemic 0%, hyperglycemic 6%, in range 94%, hypoglycemic 0%. Hypoglycemia: No longer experiencing any hypoglycemic events Symptoms of shakiness and sweatiness. 4 oz of juice or 2 tb sugar or glucose tabs. Hyperglycemia: Has not been having many episodes of high glucose readings She is on an PRIYA-inhibitor and statin CV: Bp today is 136/68. No cp, sob, dizziness. She is on atenolol 50 mg daily, amlodipine 2.5 mg daily and lisinopril 40 mg. Compliant with atorvastatin 40 mg [facility] Medical History Abdominal pain Dysphagia Arthritis Anemia GI bleed Temporal headache Urinary incontinence Chronic constipation Fibromyalgia Primary osteoarthritis of knees, bilateral NAFLD (nonalcoholic fatty liver disease) Tubular adenoma of colon Essential hypertension Neuropathy Osteoarthritis DARIEL on CPAP Upper GI bleed Hepatomegaly History of alcohol abuse Stroke Depression Anxiety Hyperlipidemia LDL goal <70 Obesity with body mass index of 30.0-39.9 Type 2 diabetes mellitus with diabetic polyneuropathy Surgical History History of temporal artery biopsy Hx of esophagogastroduodenoscopy Hx of colonoscopy Family History Father Diabetes Mother Hypertension Daughter Breast cancer Ovarian cancer Social History Household Members: Family Household Members Other:: adult child and grandchild Are you a primary transitional care manager to a significant other at home: No Do you presently have visiting nurse or other home services: No Alcohol intake: former Patient Tobacco Use Status: Former Tobacco user Years Smoked: quit 10 years ago Current occupational status: disabled Current occupation: rt handed Physical Exam Vital Signs: Last Vital Signs Pulse 77 05/24/25 12:43 BP 136/68 05/24/25 12:43 Pulse Ox 99 05/24/25 12:43 Oxygen Delivery Method Room Air 05/24/25 12:43 BMI result Body Mass Index 29.1 Const Orientation/consciousness: patient oriented x3 Neck Neck: Yes no lymphadenopathy Thyroid: Thyroid normal Carotids: no bruits Resp Auscultation: clear to auscultation bilaterally Cardio Rate: regular rate Rhythm: regular rhythm Heart sounds: S1 normal heart sound present and S2 normal heart sound present Peripheral pulses: dorsalis pedis present Neuro General: patient oriented x3, gait normal and no focal motor deficits Extrem Other: Monofilament sensation diminished bilaterally. Vibratory sensation diminished bilaterally. Skin intact. General: Yes normal to inspection Results AMB Hemoglobin A1c AMB Hemoglobin A1c 6.8 % Last Edit by RADHA Vieyra on 05/24/25 13:19 Results Reviewed Results Reviewed: Laboratory Last Values Glucose (Clinic) 116 mg/dL (60-115) H 05/24/25 12:52 Laboratory Tests 12/28/24 02/10/25 02/19/25 08:00 09:28 12:51 Sodium 140 Potassium 4.1 Chloride 108 Carbon Dioxide 27 Anion Gap 9 L BUN 15 Creatinine 0.69 Estimated GFR > 60 Glucose (Clinic) 123 H Random Glucose 114 AST 22 ALT 7 Alkaline Phosphatase 80 Triglycerides 162 H Cholesterol 147 LDL Cholesterol, Calc 77 HDL Cholesterol 38 L Urine Creatinine 211.98 Urine Microalbumin 105.0 Microalb/Creat Ratio 49.5 H Assessment & Plan Assessment & Plan (1) Uncontrolled type 2 diabetes mellitus with hyperglycemia, with long-term current use of insulin: Code(s): E11.65 - Type 2 diabetes mellitus with hyperglycemia; Z79.4 - halfway (current) use of insulin Category: Medical Plan: continue current treatment plan we will follow up in 3 months dm labs prior to appointment (2) Essential hypertension: Code(s): I10 - Essential (primary) hypertension Category: Medical Plan: bp wnl, continue current plan (3) Hyperlipidemia LDL goal <70: Code(s): E78.5 - Hyperlipidemia, unspecified Category: Medical Plan: LDL at goal continue atorvastatin Orders: Orders Basic Metabolic Panel Today E11.65 - Type 2 diabetes mellitus with hyperglycemia, I10 - Essential (primary) hypertension, Z79.4 - terminal gauger supervisor (current) use of insulin Hemoglobin A1c Today E11.65 - Type 2 diabetes mellitus with hyperglycemia, I10 - Essential (primary) hypertension, R73.01 - Impaired fasting glucose, Z79.4 - halfway (current) use of insulin Lipid Panel Today E11.65 - Type 2 diabetes mellitus with hyperglycemia, I10 - Essential (primary) hypertension, Z79.4 - halfway (current) use of insulin AMB Hemoglobin A1c Today E11.65 - Type 2 diabetes mellitus with hyperglycemia, Z79.4 - terminal gauger supervisor (current) use of insulin Microalbumin, Random (w Creat) Today E11.65 - Type 2 diabetes mellitus with hyperglycemia, I10 - Essential (primary) hypertension, Z79.4 - halfway (current) use of insulin Medications: Refilled blood sugar diagnostic (FreeStyle Lite Strips) DIRECTED 4 TIMES A DAY 150 strips 11RF E11.42 - Type 2 diabetes mellitus with diabetic polyneuropathy, Z79.4 - terminal gauger supervisor (current) use of insulin Discontinued flash glucose scanning reader (FreeStyle Marty 2 [place]) Discontinued Reason: Doctor's Order As directed 1 ea 0RF flash glucose sensor (FreeStyle Marty 2 Sensor kit) Discontinued Reason: Doctor's Order DIRECTED CHANGE EVERY 14 DAYS 2 kits 6RF Coding Level of Care Code Est Pt Level 4 (35979) Complex EM visit Add On G2211 Diagnoses Uncontrolled type 2 diabetes mellitus with hyperglycemia, with long-term current use of insulin E11.65; Z79.4 Essential hypertension I10 Hyperlipidemia LDL goal <70 E78.5
[2025-05-24 12:56] LABS: Glucose, Whole Blood 116 mg/dL (60-115)
--- OUTSIDE RECORDS SUMMARY | 2025-05-24 13:21 | XMS_ITS | Clinical Summary ---
Author Organization [facility] Address [address] [place] [address] Phone Care Team Providers Care Real Estate Representative Name Role Phone Noe Yin MD Primary Care Provider Social History Tobacco Use Types Packs/Day Years [...] 1:30 PM EDT Consult Orthopedic Surgery - [facility] [address] [address] Yung Richey, DPM [address] [address] Health Maintenance Due Date Last Done Comments [...] Vaccine (1 - 2023-2 5 season) 2024 Depression Screening 11/04/2024 Cholesterol Screening (Lipid Panel) 03/17/2025 Colorectal Cancer Screening: Colonoscopy 03/17/2025 Diabetes: Annual Urine Albumin-Creatinine Ratio (uACR) [...] age to complete this topic Insurance [facility] [employer] Care Teams Real Estate Representative Relationship Specialty Start Date End Date Noe Yin MD [address] [place] [address] PCP - General Internal Medicine 03/16/25
--- OUTSIDE RECORDS SUMMARY | 2025-05-24 13:21 | XMS_ITS | Clinical Summary ---
Author Organization [facility] Facility Address [address] [address] Care Team Providers Care Mosaic Technician Name Role Phone Mal Yin MD Primary [...] Insurance [employer] Care Teams Mosaic Technician Relationship Specialty Start Date End Date Mal Yin MD [address] [place], [place] PCP - General Internal Medicine 12/20/21
--- OUTSIDE RECORDS SUMMARY | 2025-05-24 13:21 | XMS_ITS | Encounter Summary ---
Author Organization [facility] Address [address] [address] Phone Care Team Providers Care Geologist Name Role Phone Mal Yin MD Primary Care Provider Encounter Details Date Type Department Care Team ([facility] st Contact Info) Description 08/30/2022 Ancillary Orders [facility] Medical [facility] Orthopedics & Sports Medicine [address] [place] [id number] Ayaz Hanna MD [address] [place] [address] Orthopedics & Sports Medicine, [facility] [place] [address] [email or web address] Ankle pain Social History Tobacco Use Types Packs/Day Years Used Date Smoking Tobacco: Former Smokeless Tobacco: Never Comments:quit 2010 Comments Unknown Sex and Gender Information Value Date Recorded Sex Assigned at Not on file Legal Sex Female 9:47 AM EDT Gender Identity Not on file Sexual Orientation Not on file documented as of this encounter Plan of Treatment Not on file documented as of this encounter Results * XR ANKLE 3 OR MORE VIEWS (LEFT) (08/30/2022 11:09 AM EDT) Narrative SYSTEMGENERATED, DOCUMENTATION - 08/30/2022 11:10 AM EDT This image report has been auto-finalized and has not been read by a Radiologist. Interpretation has been included in the provider encounter note for this date of service. Ayaz Hanna MD IMG XR LOWER EXTREMITY Final Result documented in this encounter Visit Diagnoses Diagnosis Ankle pain Pain in joint, ankle and foot Ankle pain Pain in joint, ankle and foot documented in this encounter Care Teams Geologist Relationship Specialty Start Date End Date Mal Yin MD [address] [place] [address] Dr [place], [place] [id number] PCP - General Internal Medicine 08/20/19 documented as of this encounter Additional Source Comments The information contained in this document represents components of the legal health record. It is not the complete legal health record.[facility]
== END 2025-05-24 13:16 | disposition home or self-care (01) ==
LOC: HO.ENCR 12:39
PROVIDERS: PCP Internal Medicine; Visit Provider Physician Assistant
DX: E11.65 Type 2 diabetes mellitus with hyperglycemia (principal); Z79.4 Long term (current) use of insulin; I10 Essential (primary) hypertension; E78.5 Hyperlipidemia, unspecified

== ENCOUNTER → 2025-05-24 12:38 | Outpatient (BNVA) | payer OTHER, SELFPAY | PROVIDERS: PCP Internal Medicine; Visit Provider Physician Assistant | DX: E11.65 Type 2 diabetes mellitus with hyperglycemia (principal); E11.42 Type 2 diabetes mellitus with diabetic polyneuropathy; I10 Essential (primary) hypertension; E78.5 Hyperlipidemia, unspecified; M79.7 Fibromyalgia; Z79.4 Long term (current) use of insulin | CPT/HCPCS: 82947; 83036; 99212 ==

== ENCOUNTER 2025-06-07 08:37 | Outpatient (REF) | payer OTHER, SELFPAY ==
--- NOTE | ~2025-06-07 | FL_ITS ---
EXAMINATION: XR BARIUM SWALLOW CLINICAL INFORMATION: Gastroesophageal reflux disease COMPARISON: None available. TECHNIQUE: Routine barium swallow upright was performed in thick barium and barium coated saltine crackers. And thin barium was administered in prone lying position. FINDINGS: Following oral administration of thick barium in upright view there is normal propagation bolus from the oral cavity through the pharynx, esophagus into stomach without obstruction, narrowing or stricture. On oral administration of saltine crackers coated with barium there is normal oral mastication and propagation of bolus from the oral cavity through the pharynx, esophagus into stomach. No obstruction, narrowing or stricture seen. On placing patient supine and prone lying the course, caliber and peristalsis stomach, duodenal bulb is normal. There is a small hiatal hernia with mild gastroesophageal reflux. The mucosal pattern esophagus and are slightly visualized stomach is unremarkable. FLUOROSCOPY TIME: 2 minute 29 seconds dose DOSE AREA PRODUCT: 2170 uGy-m2 (microgray-meter squared) FL/FL barium swallow IMPRESSION: Small hiatal hernia with mild gastroesophageal reflux. The esophagus is unremarkable. No obstruction, narrowing or extrinsic compression. Electronically signed by: Daniel Corona MD 06/07/2025 01:12 PM EDT
--- OUTSIDE RECORDS SUMMARY | 2025-06-07 08:59 | XMS_ITS | Clinical Summary ---
Author Organization [facility] Facility Address [address] [address] Care Team Providers Care Vegetable Grader Name Role Phone Mal Yin MD Primary [...] Insurance [employer] [employer] [employer] Care Teams Vegetable Grader Relationship Specialty Start Date End Date Mal Yin MD [address] [place], [place] PCP - General Internal Medicine 12/20/21
--- OUTSIDE RECORDS SUMMARY | 2025-06-07 08:59 | XMS_ITS | Encounter Summary ---
Author Organization [facility] Address [address] [address] Phone Care Team Providers Care Construction Quality Control Manager Name Role Phone Mal Yin MD Primary Care Provider Encounter Details Date Type Department Care Team ([facility] st Contact Info) Description 08/30/2022 Ancillary Orders [facility]ics & Sports Medicine [address] [place] [id number] Ayaz Hanna MD [address] [place] [address] Orthopedics & Sports Medicine, [facility] [place] [address] [email or web address] Ankle pain Social History Tobacco Use Types [...] foot documented in this encounter Care Teams Construction Quality Control Manager Relationship Specialty Start Date End Date Mal Yin MD [address] [place] [address] Dr Scales, [place] [address] PCP - General Internal Medicine 08/20/19 documented as of this encounter Additional Source Comments The information contained in this document represents components of the legal health record. It is not the complete legal health record.[facility]
== END 2025-06-07 08:38 | disposition home or self-care (01) ==
LOC: HO.XRAY 08:37
PROVIDERS: PCP Internal Medicine; Visit Provider Nurse Practitioner Family
DX: R13.10 Dysphagia, unspecified (principal); K21.9 Gastro-esophageal reflux disease without esophagitis
CPT/HCPCS: 74220

== ENCOUNTER → 2025-06-07 08:39 | Outpatient (BNV) | payer OTHER, SELFPAY | PROVIDERS: PCP Internal Medicine; Visit Provider Radiology Diagnostic Radiology | DX: K44.9 Diaphragmatic hernia without obstruction or gangrene (principal) | CPT/HCPCS: 74220 ==

== ENCOUNTER 2025-06-14 11:05 | Outpatient (AMB) | payer OTHER, SELFPAY ==
--- NOTE | 2025-06-14 11:07 | MHC.OFFVIS ---
Vital Signs 06/14/25 11:08 Height 5 ft 4 in Weight 169 lb BMI 29.0 BP 196/81 H Blood Pressure Location Lt brachial Position Sitting Respiration 16 Pulse 78 Pulse Source Pulse Oximeter Pulse Oximetry (%) 98 Oxygen Delivery Method Room Air Intake Visit Reasons: Left Knee Injection Intake Note: Pt's BP grossly elevated, states she's in a lot of pain Service Correspondent Required: No Groundhand: Groundhand Present Accompanied by: Tan Mendez Allergies GEL ELECTRODES Allergy (Mild, Uncoded 06/14/25 11:10) RASH Medication List - Last Reconciled 06/14/25 by Monica Brock LPN acetaminophen (Tylenol Extra Strength) 500 mg PO Q6H PRN alcohol swabs pad topical amlodipine 2.5 mg PO DAILY aspirin 81 mg PO DAILY atenolol 50 mg PO DAILY atorvastatin 40 mg PO DAILY@1700 blood sugar diagnostic (FreeStyle Lite Strips) DIRECTED 4 TIMES A DAY blood-glucose sensor (Somna TherapeuticsStyle Marty 3 Plus Sensor device) Use daily As directed to monitor glucose blood-glucose,visually impaired teacher,cont (FreeStyle Marty 3 [place]) Use daily As directed to monitor blood glucose xoiqtqekiw-dwrpgxdyhdwxk-exla 50-300-40 mg (Fioricet) 1 cap PO Q8H PRN cholecalciferol (vitamin D3) 50 mcg PO DAILY docusate sodium (Colace) Take one tablet daily empagliflozin (Jardiance) 10 mg PO QAM famotidine 40 mg PO BEDTIME ferrous sulfate 325 mg PO DAILY gabapentin 300 mg PO BID glucagon (Gvoke HypoPen 2-Pack) 1 mg (0.2 mL) subcut ONCE insulin glargine U-300 conc (Toujeo Max U-300 SoloStar) 50 units (0.1667 mL) subcut BEDTIME insulin lispro (Admelog SoloStar U-100 Insulin lispro) 15 u for small meals, 15 u for large, + 2 units for bg>200, + 3 units for BG >250, + 4 units bg >300mg/dl. Of note..for very light meal use only 6 units. subcut 3 times a day; 30 days Knee brace As directed lancets (FreeStyle Lancets) As directed lisinopril 40 mg PO DAILY metformin 500 mg PO BID 90 days pantoprazole (Protonix) 40 mg PO DAILY pen needle, diabetic Use QID As directed polyethylene glycol 3350 (Miralax) 17 grams PO DAILY 30 days semaglutide (Ozempic) 2 mg (0.75 mL) subcut QWEEK sumatriptan succinate mg PO HPI HPI Left Knee Injection: Details: History of Present Illness The patient is a 64-year-old female presenting with left knee pain and right shoulder pain. The left knee pain has been persistent, and the patient previously received a gel injection for relief. The pain has continued, prompting a request for further orthopedic evaluation. The right shoulder pain is severe and similar to the pain experienced prior to carpal tunnel surgery. The patient reports difficulty with hand function, such as dropping a pen while writing. The shoulder pain has not improved with recent injections, and there is extreme limitation of motion, suggesting adhesive capsulitis. Pain Description - Onset: Persistent left knee pain and severe right shoulder pain - Quality: Severe pain in the shoulder, similar to pre-carpal tunnel surgery pain - Location: Left knee and right shoulder - Exacerbating factors: Movement of the shoulder - Relieving factors: Previous gel injection for knee pain - Interference: Difficulty with hand function, such as dropping a pen Physical Exam - Musculoskeletal: Extreme limitation of shoulder range of motion indicating adhesive capsulitis Results - MRI of the right shoulder ordered due to lack of relief from shoulder injections and extreme limitation of motion Pain Management - Affect: Pain impacting daily activities and hand function - Analgesia: Previous gel injection for knee pain, recent shoulder injections with no relief - Activities of Daily Living: Difficulty with hand function, such as dropping a pen Procedure - Procedure: Injection into the left knee joint landmark guided with 30 mg of Kenalog and 0.25% ropivocaine 3mL - Consent: Informed consent obtained, patient tolerated the procedure well [facility] Medical History Abdominal pain Dysphagia Arthritis Anemia GI bleed Temporal headache Urinary incontinence Chronic constipation Fibromyalgia Primary osteoarthritis of knees, bilateral NAFLD (nonalcoholic fatty liver disease) Tubular adenoma of colon Essential hypertension Neuropathy Osteoarthritis DARIEL on CPAP Upper GI bleed Hepatomegaly History of alcohol abuse Stroke Depression Anxiety Hyperlipidemia LDL goal <70 Obesity with body mass index of 30.0-39.9 Type 2 diabetes mellitus with diabetic polyneuropathy Surgical History History of temporal artery biopsy Hx of esophagogastroduodenoscopy Hx of colonoscopy Family History Father Diabetes Mother Hypertension Daughter Breast cancer Ovarian cancer Social History Household Members: Family Household Members Other:: adult child and grandchild Are you a primary career services officer to a significant other at home: No Do you presently have visiting nurse or other home services: No Alcohol intake: former Patient Tobacco Use Status: Former Tobacco user Years Smoked: quit 10 years ago Current occupational status: disabled Current occupation: rt handed Physical Exam Vital Signs: Last Vital Signs Pulse 78 06/14/25 11:08 Resp 16 06/14/25 11:08 BP 196/81 H 06/14/25 11:08 Pulse Ox 98 06/14/25 11:08 Oxygen Delivery Method Room Air 06/14/25 11:08 BMI result Body Mass Index 29.0 Assessment & Plan Assessment & Plan (1) Impingement of right shoulder: Code(s): M25.811 - Other specified joint disorders, right shoulder Category: Medical (2) Bilateral knee pain: Code(s): M25.561 - Pain in right knee; M25.562 - Pain in left knee Category: Medical (3) Primary osteoarthritis of knees, bilateral: Comment: bilateral knee pain Code(s): M17.0 - Bilateral primary osteoarthritis of knee Category: Medical Plan Plan - Order MRI of the right shoulder to assess the cause of pain and limited motion - Consider large volume glenohumeral injection or referral to orthopedics based on MRI results - Discuss potential use of a device for pain management after insurance change Patient was informed and verbally consented to the use of an ambient scribe for clinic note documentation during this visit. Discussion Notes I discussed with the patient the need for an MRI of the right shoulder to better understand the cause of her pain and limited motion. We talked about the possibility of a large volume glenohumeral injection or referral to orthopedics depending on the MRI results. I also informed her about the potential use of a device for pain management, which may be covered by her new insurance plan. Patient Instructions - Schedule an MRI for your right shoulder as soon as possible. - Keep your shoulder moving to prevent stiffness. - Follow up with the clinic after the MRI to discuss results and next steps. Orders: Orders MR shoulder RT wo con 06/14/25 M25.811 - Other specified joint disorders, right shoulder Coding Level of Care Code Est Pt Level 3 (15983) Diagnoses Impingement of right shoulder M25.811 Bilateral knee pain M25.561; M25.562 Primary osteoarthritis of knees, bilateral M17.0
[2025-06-14 11:08] VITALS: BP 196/81; PULSE 78; RESP 16; O2SAT 98; BMI 29.0
--- OUTSIDE RECORDS SUMMARY | 2025-06-14 11:48 | XMS_ITS | Encounter Summary ---
Author Organization [facility] Address [address] [facility] [address] [place] [address] Phone Care Team Providers Care Assistant Director Of Financial Aid Name Role Phone Mal Yin MD Primary Care Provider Reason for Referral * Occupational Therapy (Routine) - Closed Specialty Diagnoses / Procedures Referred By Lito t Referred To Contact Occupational Therapy Diagnoses Personal history of transient ischemic attack (TIA), and cerebral infarction without residual deficits Mal Yin MD [address] [place] [address] Dr BOWIE [address] [place] [address] Phone: tel: fax: [address] [address] Phone: tel: Referral ID Status Reason Start Date Expiration Date Visits Re quested Visits Authorized [id number] Closed 09/01/2019 11/03/2019 3 3 Encounter Details Date Type Department Care Team (Latest Contact Info) Description 09/01/2019 Transcribe Orders [facility] [address] [place] [address] Mal Yin MD [address] [place] [address] Dr BOWIE [address] [place] [address] [place] [id number] Encounter for rehabilitation (Primary Dx) Social History Tobacco Use Types Packs/Day Years Used Date Smoking Tobacco: Never Assessed Comments Unknown Sex and Gender Information Value Date Recorded Sex Assigned at Not on file Legal Sex Female 9:47 AM EDT Gender Identity Not on file Sexual Orientation Not on file documented as of this encounter Plan of Treatment Scheduled Referrals Name Type Priority Associated Diagnoses Orde r Schedule Ambulatory referral to [facility] Occupational Therapy Outpatient Referral Routine Encounter for rehabilitation Ordered: 09/01/2019 documented as of this encounter Visit Diagnoses Diagnosis Encounter for rehabilitation- Primary documented in this encounter Care Teams Assistant Director Of Financial Aid Relationship Specialty Start Date End Date Mal Yin MD [address] [place] [address] Dr BOWIE [address] [place] [address] PCP - General Internal Medicine 08/20/19 documented as of this encounter Additional Source Comments The information contained in this document represents components of the legal health record. It is not the complete legal health record.[facility]
--- OUTSIDE RECORDS SUMMARY | 2025-06-14 11:48 | XMS_ITS | Clinical Summary ---
Author Organization [facility] Facility Address [address] [address] Care Team Providers Care Transportation Inspector Name Role Phone Mal Yin MD Primary [...] Insurance [employer] Medicaid [employer] Medicaid Care Teams Transportation Inspector Relationship Specialty Start Date End Date Mal Yin MD [address] [place], [place] PCP - General Internal Medicine 12/20/21
== END 2025-06-14 11:39 | disposition home or self-care (01) ==
LOC: HO.PMC 11:06
PROVIDERS: PCP Internal Medicine; Visit Provider Internal Medicine
DX: M25.811 Other specified joint disorders, right shoulder (principal); M25.561 Pain in right knee; M25.562 Pain in left knee; M17.0 Bilateral primary osteoarthritis of knee
CPT/HCPCS: 20610; 99213

== ENCOUNTER → 2025-06-14 11:05 | Outpatient (BNVA) | payer OTHER, SELFPAY | PROVIDERS: PCP Internal Medicine; Visit Provider Internal Medicine | DX: M25.811 Other specified joint disorders, right shoulder (principal); M25.561 Pain in right knee; M25.562 Pain in left knee; M17.0 Bilateral primary osteoarthritis of knee | CPT/HCPCS: 20610; 99212; J2795; J3301 ==

== ENCOUNTER 2025-07-02 10:40 | Outpatient (REF) | payer OTHER, SELFPAY ==
--- OUTSIDE RECORDS SUMMARY | 2025-07-02 11:19 | XMS_ITS | Clinical Summary ---
Author Organization [facility] Facility Address [address] [address] Care Team Providers Care Rigger Helper Name Role Phone Mal Yin MD Primary [...] Insurance [employer] Medicaid [employer] Medicaid Care Teams Rigger Helper Relationship Specialty Start Date End Date Mal Yin MD [address] [place], [place] PCP - General Internal Medicine 12/20/21
--- OUTSIDE RECORDS SUMMARY | 2025-07-02 11:19 | XMS_ITS | Clinical Summary ---
Author Organization [facility] Address [address] [address] Phone Care Team Providers Care Plastic Card Grader Cardroom Name Role Phone Mal Yin MD Primary Care Provider Allergies No known active allergies Medications amLODIPine (NORVASC) 2.5 MG tablet TAKE 1 TABLET BY MOUTH 1 TIME EACH DAY. 2 Active aspirin 81 MG EC tablet Take 81 mg by mouth daily. 2 Active atenolol (TENORMIN) 50 mg tablet Take 50 mg by mouth daily. 2 Active atorvastatin (LIPITOR) 40 MG tablet Take 40 mg by mouth daily. 2 Active INVOKANA 100 mg tablet Take 100 mg by mouth daily. 2 Active VITAMIN D3 50 mcg (2,000 unit) tablet Take 2,000 Units by mouth daily. 2 Active docusate sodium (COLACE) 100 MG capsule Take 200 mg by mouth nightly at bedtime. 2 Active TRULICITY 1.5 mg/0.5 mL subcutaneous injection 2 Active ferrous sulfate 325 mg (65 mg confederated [place] iron) tablet Take 1 tablet by mouth daily. 2 Active hydroCHLOROthiazi de (MICROZIDE) 12.5 mg capsule Take by mouth daily. 2 Active TRESIBA FLEXTOUCH U-200 200 unit/mL (3 mL) InPn injection pen INJECT 68 UNIT (0.34 ML) SUBCUTANEO DAILY 30 DAYS 2 Active insulin glargine (LANTUS SOLOSTAR U-100 INSULIN) 100 unit/mL (3 mL) InPn injection pen Inject 26 Units under the skin. Active insulin lispro (ADMELOG, HUMALOG) 100 unit/mL injection pen PLEASE SEE ATTACHED FOR DETAILED DIRECTIONS 2 Active lisinopril (PRINIVIL,ZESTRIL ) 40 MG tablet Take 1 tablet by mouth. Active metFORMIN (GLUCOPHAGE) 500 MG tablet Take 500 mg by mouth 2 (two) times a day. 2 Active omeprazole (PRILOSEC) 40 MG capsule Take by mouth daily. 2 Active pregabalin (LYRICA) 100 MG capsule Take 100 mg by mouth 2 (two) times a day. 2 Active tiZANidine (ZANAFLEX) 2 MG tablet Take 1 tablet by mouth. Active triamcinolone acetonide 0.1 % cream APPLY DAILY TO SKIN EVERY DAY FOR 14 DAYS 2 Active Active Problems Problem Noted Date Diagnosed Date Ankle pain 08/30/2022 Social History Tobacco Use Types Packs/Day Years Used Date Smoking Tobacco: Former Smokeless Tobacco: Never Comments:quit 2009 Education Answer Date Recorded Are you interested in more education? Not on keith e 03/01/2023 Are you concerned about learning? Not on file 03/01/2023 No 03/01/2023 No 03/01/2023 Digital Access Answer Date Recorded No 03/30/2023 No 03/30/2023 No 03/30/2023 Reliable internet access at home? Not on file 03/30/2023 Device with a working camera? Not on file Comments Unknown Sex and Gender Information Value Date Recorded Sex Assigned at Not on file Legal Sex Female 9:47 AM EDT Gender Identity Not on file Sexual Orientation Not on file Last Filed Vital Signs Vital Sign Reading Time Taken Comments Blood Pressure - - Pulse - - Temperature - - Respiratory Rate - - Oxygen Saturation - - Inhaled Oxygen Concentration - - Weight 89.8 kg (198 lb) 08/30/2022 10:49 AM EDT Height 152.4 cm (5') 08/30/2022 10:49 AM EDT Body Mass Index 38.67 08/30/2022 10:49 AM EDT Plan of Treatment Health Maintenance Due Date Last Done Comments CREATININE LEVEL 1960 LIPID PANEL 1960 POTASSIUM LEVEL 1960 DEPRESSION SCREENING 1972 SMOKING Hx and SMOKELESS TOBACCO SCREENING 1973 HEPATITIS C SCREENING 1978 HIV ONE-TIME SCREENING (18-6 5 YEARS) 1978 PAP SMEAR 1981 SCREENING FOR DIABETES 1995 MAMMOGRAM 2000 COLOGUARD 2005 COLONOSCOPY 2005 COLORECTAL CANCER SCREENING 2005 FIT TEST 2005 FOBT 2005 SIGMOIDOSCOPY 2005 VIRTUAL COLONOSCOPY 2005 ZOSTER VACCINES (1 of 2) 2010 PNEUMOCOCCAL VACCINES (50+ years) (2 of 2 - PCV) 04/21/2019 04/21/2018, 07/14/2012 RSV VACCINE (1 - Risk 60-74 years 1-dose series) 2020 Adult Td,Tdap Booster 07/14/2022 07/14/2012 COVID-19 VACCINE (2 - 2023-2 5 season) 2024 03/11/2021 HEPATITIS A VACCINES Aged Out No long er eligible based on patient's age to complete this topic HIB VACCINES Aged Out No longer eligi ble based on patient's age to complete this topic MENINGOCOCCAL VACCINES (ACWY) Aged Out No longer eligible based on patient's age to complete this topic MENINGOCOCCAL VACCINES (B) Aged Out N o longer eligible based on patient's age to complete this topic Medical Devices Not on file [place] [address] [address] [employer] [facility] [place] [address] [place] [address] [place] [address] [address] [employer] Care Teams Plastic Card Grader Cardroom Relationship Specialty Start Date End Date Mal Yin MD [address] [place] [address] [place] [address] PCP - General Internal Medicine 08/20/19 Additional Source Comments The information contained in this document represents components of the legal health record. It is not the complete legal health record.[facility]
--- OUTSIDE RECORDS SUMMARY | 2025-07-02 11:19 | XMS_ITS | Encounter Summary ---
Author Organization [facility] Address [address] [address] Phone Care Team Providers Care Supervisor Cell Operation Name Role Phone Mal Yin MD Primary Care Provider Encounter Details Date Type Department Care Team ([facility] st Contact Info) Description 08/30/2022 Ancillary Orders [facility] Medical [facility] Orthopedics & Sports Medicine [address] [place] [address] Ayaz Hanna MD [address] [place] [address] Orthopedics & Sports Medicine, [facility] [place] [address] [email or web address] Ankle pain Social History Tobacco Use Types [...] foot documented in this encounter Care Teams Supervisor Cell Operation Relationship Specialty Start Date End Date Mal Yin MD [address] [place] [address] Dr Scales, [place] [address] PCP - General Internal Medicine 08/20/19 documented as of this encounter Additional Source Comments The information contained in this document represents components of the legal health record. It is not the complete legal health record.[facility]
--- OUTSIDE RECORDS SUMMARY | 2025-07-02 11:19 | XMS_ITS | Encounter Summary ---
Author Organization [facility] Address [address] [facility] [address] [place] [address] Phone Care Team Providers Care Table Worker Name Role Phone Mal Yin MD Primary Care Provider Reason for Referral * Occupational Therapy (Routine) - Closed Specialty Diagnoses / Procedures Referred By Lito t Referred To Contact Occupational Therapy Diagnoses Personal history of transient ischemic attack (TIA), and cerebral infarction without residual deficits Mal Yin MD [address] [place] [address] Dr BOWIE [address] [place] [address] Phone: tel: fax: [address] [address] Phone: tel: Referral ID Status Reason Start Date Expiration Date Visits Re quested Visits Authorized [id number] Closed 09/01/2019 11/03/2019 3 3 Encounter Details Date Type Department Care Team (Latest Contact Info) Description 09/01/2019 Transcribe Orders [facility] [address] [place] [address] Mal Yin MD [address] [place] [address] Dr BOWIE [address] [place] [address] [place] [address] Encounter for rehabilitation (Primary Dx) Social History [...] Diagnoses Orde r Schedule Ambulatory referral to [facility] Occupational Therapy Outpatient Referral Routine Encounter for rehabilitation Ordered: 09/01/2019 documented as of this encounter Visit Diagnoses Diagnosis Encounter for rehabilitation- Primary documented in this encounter Care Teams Table Worker Relationship Specialty Start Date End Date Mal Yin MD [address] [place] [address] Dr BOWIE [address] [place] [address] PCP - General Internal Medicine 08/20/19 documented as of this encounter Additional Source Comments The information contained in this document represents components of the legal health record. It is not the complete legal health record.[facility]
[2025-07-02 11:38] LABS: Alanine Aminotransferase 9 U/L (0-31); Albumin Level 4.6 g/dL (3.5-5.0); Alkaline Phosphatase 88 U/L (39-117); Aspartate Amino Transferase 21 U/L (5-31); Cholesterol 144 mg/dL (<200); HDL Cholesterol 43 mg/dL (>40); Total Protein 7.5 g/dL (6.5-8.0); Triglycerides 131 mg/dL (<150)
[2025-07-02 11:39] LABS: Hemoglobin A1C 186.7302 umol/L; Total Hemoglobin (HGBA1C) 3713.1715 umol/L
[2025-07-02 16:47] LABS: Reflex LDLD? No
== END 2025-07-02 10:41 | disposition home or self-care (01) ==
LOC: HO.LNP 10:40
PROVIDERS: Visit Provider Internal Medicine
DX: E11.9 Type 2 diabetes mellitus without complications (principal); E78.00 Pure hypercholesterolemia, unspecified
CPT/HCPCS: 80061; 80076; 82947; 83036

== ENCOUNTER 2025-07-14 10:21 | Outpatient (AMB) | payer MEDICAID, SELFPAY ==
[2025-07-14 10:46] VITALS: BP 136/50; PULSE 77; RESP 16; O2SAT 97; BMI 29.3
--- NOTE | 2025-07-14 10:46 | A.OFFVIS_ITS ---
Vital Signs 07/14/25 10:46 Height 5 ft 4 in Weight 171 lb BMI 29.3 BP 136/50 L Blood Pressure Location Lt brachial Position Sitting Respiration 16 Pulse 77 Pulse Source Pulse Oximeter Pulse Oximetry (%) 97 Oxygen Delivery Method Room Air Intake Visit Reasons: RIGHT KNEE INJECTION Hub Associate Required: No Cashier Host/Hostess: Cashier Host/Hostess Present Accompanied by: Tan Mendez Allergies GEL ELECTRODES Allergy (Mild, Uncoded 07/14/25 10:49) RASH Medication List - Last Reconciled 07/14/25 by Monica Brock LPN acetaminophen (Tylenol Extra Strength) 500 mg PO Q6H PRN alcohol swabs pad topical amlodipine 2.5 mg PO DAILY aspirin 81 mg PO DAILY atenolol 50 mg PO DAILY atorvastatin 40 mg PO DAILY@1700 blood sugar diagnostic (FreeStyle Lite Strips) DIRECTED 4 TIMES A DAY blood-glucose sensor (WriteReader ApSStyle Marty 3 Plus Sensor device) Use daily As directed to monitor glucose blood-glucose,rn transitional care,cont (FreeStyle Marty 3 [place]orn) Use daily As directed to monitor blood glucose eetuxyvubb-nidksqsqgwnne-ktky 50-300-40 mg (Fioricet) 1 cap PO Q8H PRN cholecalciferol (vitamin D3) 50 mcg PO DAILY docusate sodium (Colace) Take one tablet daily empagliflozin (Jardiance) 10 mg PO QAM famotidine 40 mg PO BEDTIME ferrous sulfate 325 mg PO DAILY gabapentin 300 mg PO BID glucagon (Gvoke HypoPen 2-Pack) 1 mg (0.2 mL) subcut ONCE insulin glargine U-300 conc (Toujeo Max U-300 SoloStar) 50 units (0.1667 mL) subcut BEDTIME insulin lispro (Admelog SoloStar U-100 Insulin lispro) 15 u for small meals, 15 u for large, + 2 units for bg>200, + 3 units for BG >250, + 4 units bg >300mg/dl. Of note..for very light meal use only 6 units. subcut 3 times a day; 30 days Knee brace As directed lancets (FreeStyle Lancets) As directed lisinopril 40 mg PO DAILY metformin 500 mg PO BID 90 days pantoprazole (Protonix) 40 mg PO DAILY pen needle, diabetic Use QID As directed polyethylene glycol 3350 (Miralax) 17 grams PO DAILY 30 days semaglutide (Ozempic) 2 mg (0.75 mL) subcut QWEEK sumatriptan succinate mg PO HPI HPI RIGHT KNEE INJECTION: Details: History of Present Illness The patient is a 64-year-old female presenting with shoulder pain. She reports persistent pain despite using Tylenol and Bengay, and plans to start physical therapy soon. Additionally, she has a history of carpal tunnel syndrome and is considering further evaluation by a hand surgeon. Pain Description - Onset: Persistent shoulder pain - Quality: Severe pain despite medication - Location: Shoulder - Exacerbating factors: Not relieved by Tylenol or Bengay - Interference: Pain interferes with daily activities, prompting physical therapy Physical Exam - Musculoskeletal: Right knee injection performed using landmark technique, patient tolerated the procedure well Results Pain Management - Analgesia: Current use of Tylenol and Bengay, pain remains severe - Activities of Daily Living: Pain interferes with daily activities, prompting physical therapy PFSH Medical History Abdominal pain Dysphagia Arthritis Anemia GI bleed Temporal headache Urinary incontinence Chronic constipation Fibromyalgia Primary osteoarthritis of knees, bilateral NAFLD (nonalcoholic fatty liver disease) Tubular adenoma of colon Essential hypertension Neuropathy Osteoarthritis DARIEL on CPAP Upper GI bleed Hepatomegaly History of alcohol abuse Stroke Depression Anxiety Hyperlipidemia LDL goal <70 Obesity with body mass index of 30.0-39.9 Type 2 diabetes mellitus with diabetic polyneuropathy Surgical History History of temporal artery biopsy Hx of esophagogastroduodenoscopy Hx of colonoscopy Family History Father Diabetes Mother Hypertension Daughter Breast cancer Ovarian cancer Social History Household Members: Family Household Members Other:: adult child and grandchild Are you a primary career development coordinator/teacher to a significant other at home: No Do you presently have visiting nurse or other home services: No Alcohol intake: former Patient Tobacco Use Status: Former Tobacco user Years Smoked: quit 10 years ago Current occupational status: disabled Current occupation: rt handed Physical Exam Vital Signs: Last Vital Signs Pulse 77 07/14/25 10:46 Resp 16 09/10/25 10:46 BP 136/50 L 09/10/25 10:46 Pulse Ox 97 07/14/25 10:46 Oxygen Delivery Method Room Air 07/14/25 10:46 BMI result Body Mass Index 29.3 Office Procedures AMB Joint Injection/Aspiration Joint Injection/Aspiration Primary Site: right knee Prep: site was prepped using sterile technique Injected: 40 mg of, Kenalog, with 3 mL of (ropivacaine 0.25%) and in the joint Approach Used: medial parapatellar Procedure: The patient tolerated the procedure well Coding 73881 - Large joint Procedure code (CPT) selection complete Assessment & Plan Assessment & Plan (1) Primary osteoarthritis of knees, bilateral: Comment: bilateral knee pain Code(s): M17.0 - Bilateral primary osteoarthritis of knee Category: Medical (2) Bilateral carpal tunnel syndrome: Code(s): G56.03 - Carpal tunnel syndrome, bilateral upper limbs Category: Medical Plan Plan Patient was informed and verbally consented to the use of an ambient scribe for clinic note documentation during this visit. 1. Shoulder Pain - Plan: Initiate physical therapy, continue current analgesics, consider follow- up for possible injection if pain persists 2. Carpal Tunnel Syndrome - Plan: Referral to hand surgeon for further evaluation and management Discussion Notes I discussed with the patient the plan to start physical therapy for her shoulder pain and the potential for further injections if necessary. We also talked about the referral to a hand surgeon for her carpal tunnel syndrome. Patient Instructions - Start physical therapy as scheduled for shoulder pain. - Continue using Tylenol and Bengay for pain management. - Follow up with a hand surgeon for carpal tunnel syndrome evaluation. Coding Level of Care Code Est Pt Level 3 (94134) Diagnoses Primary osteoarthritis of knees, bilateral M17.0 Bilateral carpal tunnel syndrome G56.03 CPT Codes Coding - Large joint: 26235 - Large joint ([id number])
--- OUTSIDE RECORDS SUMMARY | 2025-07-14 12:35 | XMS_ITS | Clinical Summary ---
Author Organization [facility] Address [address] [address] Phone Care Team Providers Care Carpenter Foreman Name Role Phone Mal Yin MD Primary [...] Active ferrous sulfate 325 mg (65 mg [place] iron) tablet Take 1 tablet by mouth [...] HEPATITIS C SCREENING 1978 HIV ONE-TIME SCREENING (18-65 YEARS) 1978 PAP SMEAR 1981 SCREENING FOR DIABETES 1995 MAMMOGRAM 2000 COLOGUARD 2005 COLONOSCOPY 2005 COLORECTAL CANCER SCREENING 2005 FIT TEST 2005 FOBT 2005 SIGMOIDOSCOPY 2005 VIRTUAL COLONOSCOPY 2005 ZOSTER VACCINES (1 of 2) 2010 PNEUMOCOCCAL VACCINES (50+ years) (2 of 2 - PCV) 04/21/2019 04/21/2018, 07/14/2012 RSV VACCINE (1 - Risk 60-74 years 1-dose series) 2020 Adult Td,Tdap Booster 07/14/2022 07/14/2012 INFLUENZA VACCINE (#1) 2025 0, 09/07/2019, 08/26/2018, Additional history exists COVID-19 VACCINE (2 - 2024- season) 2025 03/11/2021 HEPATITIS A VACCINES Aged Out No [...] topic Medical Devices Not on file Insurance [facility] Care Teams Carpenter Foreman Relationship Specialty Start Date End Date Mal Yin MD [address] [place] [address] [place] [address] PCP - General Internal Medicine 08/20/19 Additional Source Comments The information contained in this document represents components of the legal health record. It is not the complete legal health record.[facility]
--- OUTSIDE RECORDS SUMMARY | 2025-07-14 12:35 | XMS_ITS | Encounter Summary ---
Author Organization [facility] Address [address] [facility] [address] [place] [address] Phone Care Team Providers Care Occupational Medicine Officer Name Role Phone Mal Yin MD Primary Care Provider Reason for Referral * Occupational Therapy (Routine) - Closed Specialty Diagnoses / Procedures Referred By Lito t Referred To Contact Occupational Therapy Diagnoses Personal history of transient ischemic attack (TIA), and cerebral infarction without residual deficits Mal Yin MD [address] [place] [address] Dr BOWIE [address] [place] [address] Phone: tel: fax: [address] [address] Phone: tel: Referral ID Status Reason Start Date Expiration Date Visits Re quested Visits Authorized [id number] Closed 09/01/2019 11/03/2019 3 3 Encounter Details Date Type Department Care Team (Latest Contact Info) Description 09/01/2019 Transcribe Orders [facility] [address] [place] [address] Mal Yin MD [address] [place] [address] Dr BOWIE [address] [place] [address] [place] [id number] Encounter for rehabilitation (Primary Dx) Social History [...] Diagnoses Orde r Schedule Ambulatory referral to [facility] Occupational Therapy Outpatient Referral Routine Encounter for rehabilitation Ordered: 09/01/2019 documented as of this encounter Visit Diagnoses Diagnosis Encounter for rehabilitation- Primary documented in this encounter Care Teams Occupational Medicine Officer Relationship Specialty Start Date End Date Mal Yin MD [address] [place] [address] Dr BOWIE [address] [place] [id number] PCP - General Internal Medicine 08/20/19 documented as of this encounter Additional Source Comments The information contained in this document represents components of the legal health record. It is not the complete legal health record.[facility]
--- OUTSIDE RECORDS SUMMARY | 2025-07-14 12:35 | XMS_ITS | Encounter Summary ---
Author Organization [facility] Address [address] [address] Phone Care Team Providers Care Nuclear Reactor Technician Name Role Phone Mal Yin MD Primary Care Provider Encounter Details Date Type Department Care Team ([facility] st Contact Info) Description 08/30/2022 Ancillary Orders [facility] Medical [facility] Orthopedics & Sports Medicine [address] [place] [address] Ayaz Hanna MD [address] [place] [address] Orthopedics & Sports Medicine, [facility] [place] [address] [email or web address] Ankle pain Social History Tobacco Use Types [...] foot documented in this encounter Care Teams Nuclear Reactor Technician Relationship Specialty Start Date End Date Mal Yin MD [address] [place] [address] Dr Scales, [place] [address] PCP - General Internal Medicine 08/20/19 documented as of this encounter Additional Source Comments The information contained in this document represents components of the legal health record. It is not the complete legal health record.[facility]
--- OUTSIDE RECORDS SUMMARY | 2025-07-14 12:36 | XMS_ITS | Clinical Summary ---
Author Organization [facility] Address [address] [address] Care Team Providers Care Segment Block Layer Name Role Phone Mal Yin MD Primary [...] Insurance [employer] Care Teams Segment Block Layer Relationship Specialty Start Date End Date Mal Yin MD [address] [place], [place] PCP - General Internal Medicine 12/20/21
== END 2025-07-14 11:26 | disposition home or self-care (01) ==
PROVIDERS: PCP Internal Medicine; Visit Provider Internal Medicine
DX: M25.511 Pain in right shoulder (principal); G56.03 Carpal tunnel syndrome, bilateral upper limbs; M17.0 Bilateral primary osteoarthritis of knee
CPT/HCPCS: 20610; 99213

== ENCOUNTER → 2025-07-14 10:21 | Outpatient (BNVA) | payer MEDICAID, SELFPAY | PROVIDERS: PCP Internal Medicine; Visit Provider Internal Medicine | DX: M17.0 Bilateral primary osteoarthritis of knee (principal); G56.03 Carpal tunnel syndrome, bilateral upper limbs | CPT/HCPCS: 20610; 99212 ==

== ENCOUNTER 2025-07-21 12:46 | Outpatient (AMB) | payer OTHER, MEDICAID, SELFPAY ==
--- NOTE | 2025-07-21 12:56 | A.OFFVIS_ITS ---
Vital Signs 07/21/25 12:57 Height 5 ft 4 in Weight 171 lb BMI 29.3 BP 131/63 Blood Pressure Location Lt brachial Position Sitting Pulse 75 Pulse Oximetry (%) 99 Oxygen Delivery Method Room Air Intake Visit Reasons: 2 mos FUV. Intake Note: Patient follow up for abdominal pain/acid reflux, and lab results Patient cc: nauseas/daily, abdominal bloating, GERD, denies any other GI issues. Scoop Filler Required: No Accompanied by: Self / Same As Patient Allergies GEL ELECTRODES Allergy (Mild, Uncoded 07/14/25 10:49) RASH HPI HPI 2 mos FUV.: Details: Patient is a 64-year-old female with PMH of DMII, hypertension, hyperlipidemia, obesity, OA and fibromyalgia. Delaney presents for f/u on ongoing GERD and constipation management. Review barium swallow results and assess interval symptom response. She states heartburn symptoms persist, described as burning and daily queasiness. Reports associated bad/bitter taste in mouth, variable by episode. Epigastric pain continues, described as intermittent and not clearly meal- related. Constipation partially improved with Miralax every other day; stool remains Type 2 (bumpy sausage) when on Miralax, harder on missed days. No blood in stool, no lower abd pain. Pt adheres to Pepcid at bedtime and Protonix before dinner . Stool softener continued per previous instructions. Diet low in fiber; pt drinks large amounts of water but attempts to balance intake due to DM. No ER visits, hospitalizations, or acute flares since last visit. Recent labs reviewed ordered by pt's PCP, no new symptoms except as above. HPI Comments Details: Patient is a 64-year-old female with PMH of DMII, hypertension, hyperlipidemia, obesity, OA and fibromyalgia. continues with heartburn, quieness, epigastric miralax EOD. [facility] Medical History (Updated 07/21/25 @ 13:34 by Lisseth Izquierdo CNP) Epigastric pain Abdominal pain Dysphagia Arthritis Anemia GI bleed Temporal headache Urinary incontinence Chronic constipation Fibromyalgia Primary osteoarthritis of knees, bilateral NAFLD (nonalcoholic fatty liver disease) Tubular adenoma of colon Essential hypertension Neuropathy Osteoarthritis DARIEL on CPAP Upper GI bleed Hepatomegaly History of alcohol abuse Stroke Depression Anxiety Hyperlipidemia LDL goal <70 Obesity with body mass index of 30.0-39.9 Type 2 diabetes mellitus with diabetic polyneuropathy Surgical History History of temporal artery biopsy Hx of esophagogastroduodenoscopy Hx of colonoscopy Family History Father Diabetes Mother Hypertension Daughter Breast cancer Ovarian cancer Social History Household Members: Family Household Members Other:: adult child and grandchild Are you a primary behavioral health care manager to a significant other at home: No Do you presently have visiting nurse or other home services: No Alcohol intake: former Patient Tobacco Use Status: Former Tobacco user Years Smoked: quit 10 years ago Current occupational status: disabled Current occupation: rt handed Review of Systems Const Reports as per HPI ENT Reports as per HPI Card Reports as per HPI Resp Reports as per HPI GI Reports as per HPI Reports as per HPI Physical Exam Vital Signs: Last Vital Signs Pulse 75 07/21/25 12:57 BP 131/63 07/21/25 12:57 Pulse Ox 99 07/21/25 12:57 Oxygen Delivery Method Room Air 07/21/25 12:57 BMI result Body Mass Index 29.3 Const General: healthy appearing, no acute distress and well developed Nutritional Appearance: average body habitus Orientation/consciousness: patient oriented x3 HEENT Head: Yes normal to inspection, Yes normocephalic and Yes atraumatic Face and sinus: Yes normal facial exam Eyes General: appearance normal, both eyes and all related structures Neck Neck: Yes normal visual inspection Resp Effort & Inspection: normal respiratory effort, able to speak in complete sentences, no tracheal deviation and symmetric chest movement Cardio Jugular venous distension: no JVD GI Inspection: Yes normal to inspection, No distended and Yes obesity Palpation (GI): Tenderness to palpation present (GI) Neuro General: patient oriented x3 Gait exam (Neuro): Normal gait present Psych Appearance: grossly normal Mental Status: mental status grossly normal Speech and movement: Normal speech and movement present Affect: normal affect Attitude: cooperative Thought process: Normal thought process present Thought content: Normal thought content present Insight: Good insight present (Psych) Judgement: Good judgement present (Psych) Assessment & Plan Assessment & Plan (1) Acid reflux: Comment: EGD 06/10/2020: normal upper endoscopy findings. No evidence of esophagitis or suggestion of any Cabrera's disease. Without hiatal hernia. Code(s): K21.9 - Gastro-esophageal reflux disease without esophagitis Category: Medical Qualifiers: Esophagitis presence: without esophagitis Qualified Code(s): K21.9 - Gastro-esophageal reflux disease without esophagitis Plan: Persistent heartburn/epigastric discomfort. Barium swallow confirms GERD/hernia, sxs unimproved. Instructed on optimal pantoprazole timing (a.m., >=30 mins before breakfast). Additional Testing:Pending EGD (upper endoscopy) to further evaluate upper GI tract. Medications:Continue pantoprazole as above; instruct pt to take prior to breakfast if possible. Continue famotidine qhs. Lifestyle Recommendations:Handout provided on hiatal hernia and high-fiber diet. Reinforce upright posture post-meals, avoid lying down within 3 hrs, minimize meal size/caffeine/spicy foods. Referrals / Coordination:Await EGD scheduling. Surgical referral considered only if hernia worsens or sx severe/refractory. Follow-Up Plan:Revisit after gallbladder US and/or EGD. Symptom diary recommended. (2) Chronic constipation: Code(s): K59.09 - Other constipation Category: Medical Plan: Mild, improved on Miralax but suboptimal when taken qod. Type 2 stool, no blood, no lower abd pain. DM and polypharmacy likely contributors. Symptoms suggest need for titrated daily osmotic; risk of worsening due to DM/meds. Additional Testing:None acutely; routine monitoring. Medications:Miralax daily, titrate based on stool (hold if diarrhea/loose, resume daily when stool consistent). Continue docusate. Lifestyle Recommendations:Dietary fiber and water intake emphasized; handout provided. Encourage fruits, veggies, beans, nuts as tolerated. Follow-Up Plan:Assess bowel pattern and response at next f/u (post-US), or prn i f sx worsen. (3) Epigastric pain: Code(s): R10.13 - Epigastric pain Category: Medical Plan: Episodic, not clearly postprandial, may represent diabetic gastroparesis or biliary etiology. Labs (Dec 2024): LFTs, lipids WNL; A1c 6.8%; no anemia. Cardia c workup in past?WNL per pt .Sx overlap with GERD, DM; prior imaging normal but US ordered due to persistent upper abd sx. Additional Testing: -Abd US ordered for gallbladder eval. -consider motility testing if current workup unyielding Medications:No change until further results. Lifestyle Recommendations:As above?small frequent meals, diabetes monitoring. Follow-Up Plan:F/u post-US for results and planning Plan Follow-up after ultrasounds results or sooner as needed Time: I spent a total of 35 minutes on the date of encounter which includes: Preparing to see the patient (reviewed previous documentation, test results and medical history) Performing a medically appropriate exam and/or evaluation Ordering medications, tests, and procedures Documenting clinical information in the health record Orders: Orders US abdomen complete Today R10.13 - Epigastric pain, R11.0 - Nausea Coding Level of Care Code Established Pt Est Pt Level 4 (69657) Patient Type Established Diagnoses Gastroesophageal reflux disease without esophagitis K21.9 Esophagitis presence: without esophagitis Chronic constipation K59.09 Epigastric pain R10.13
[2025-07-21 12:57] VITALS: BP 131/63; PULSE 75; O2SAT 99; BMI 29.3
--- OUTSIDE RECORDS SUMMARY | 2025-07-21 16:12 | XMS_ITS | Encounter Summary ---
Author Organization [facility] Address [address] [address] Phone Care Team Providers Care Core Composer Machine Tender Name Role Phone Mal Yin MD Primary Care Provider Encounter Details Date Type Department Care Team ([facility] st Contact Info) Description 08/30/2022 Ancillary Orders [facility] Medical [facility] Orthopedics & Sports Medicine [address] [place] [id number] Ayaz Hanna MD [address] [place] [address] Orthopedics & Sports Medicine, [facility] [place] [address] [email or web address] Ankle pain Social History Tobacco Use Types [...] foot documented in this encounter Care Teams Core Composer Machine Tender Relationship Specialty Start Date End Date Mal Yin MD [address] [place] [address] Dr Scales, [place] [address] PCP - General Internal Medicine 08/20/19 documented as of this encounter Additional Source Comments The information contained in this document represents components of the legal health record. It is not the complete legal health record.[facility]
--- OUTSIDE RECORDS SUMMARY | 2025-07-21 16:12 | XMS_ITS | Encounter Summary ---
Author Organization [facility] Address [address] [facility] [address] [place] [address] Phone Care Team Providers Care Rollout Manager Name Role Phone Mal Yin MD Primary Care Provider Reason for Referral * Occupational Therapy (Routine) - Closed Specialty Diagnoses / Procedures Referred By Lito t Referred To Contact Occupational Therapy Diagnoses Personal history of transient ischemic attack (TIA), and cerebral infarction without residual deficits Mal Yin MD [address] [place] [address] Dr BOWIE [address] [place] [address] Phone: tel: fax: [address] [address] Phone: tel: Referral ID Status Reason Start Date Expiration Date Visits Re quested Visits Authorized [id number] Closed 09/01/2019 11/03/2019 3 3 Encounter Details Date Type Department Care Team (Latest Contact Info) Description 09/01/2019 Transcribe Orders [facility] Rehabilitation Services [address] [place] [address] Mal Yin MD [address] [place] [address] Dr BOWIE [address] [place] [address] [place] [address] Encounter for rehabilitation (Primary Dx) Social History [...] Diagnoses Orde r Schedule Ambulatory referral to [facility] Occupational Therapy Outpatient Referral Routine Encounter for rehabilitation Ordered: 09/01/2019 documented as of this encounter Visit Diagnoses Diagnosis Encounter for rehabilitation- Primary documented in this encounter Care Teams Rollout Manager Relationship Specialty Start Date End Date Mal Yin MD [address] [place] [address] Dr BOWIE [address] [place] [id number] PCP - General Internal Medicine 08/20/19 documented as of this encounter Additional Source Comments The information contained in this document represents components of the legal health record. It is not the complete legal health record.[facility]
--- OUTSIDE RECORDS SUMMARY | 2025-07-21 16:13 | XMS_ITS | Clinical Summary ---
Author Organization [facility] Facility Address [address] [address] Care Team Providers Care Claims Adjuster Crop Name Role Phone Mal Yin MD Primary [...] Insurance [employer] [employer] [employer] Care Teams Claims Adjuster Crop Relationship Specialty Start Date End Date Mal Yin MD [address] [place], [place] PCP - General Internal Medicine 12/20/21
--- OUTSIDE RECORDS SUMMARY | 2025-07-21 16:13 | XMS_ITS | Clinical Summary ---
Author Organization [facility] Address [address] [address] Phone Care Team Providers Care Dinkey Mechanic Name Role Phone Mal Yin MD Primary [...] Active ferrous sulfate 325 mg (65 mg nanwalek iron) tablet Take 1 tablet by mouth [...] topic Medical Devices Not on file Insurance [facility] [employer] [facility] Care Teams Dinkey Mechanic Relationship Specialty Start Date End Date Mal Yin MD [address] [place] [address] [place] [address] PCP - General Internal Medicine 08/20/19 Additional Source Comments The information contained in this document represents components of the legal health record. It is not the complete legal health record.[facility]
== END 2025-07-21 13:48 | disposition home or self-care (01) ==
PROVIDERS: PCP Internal Medicine; Visit Provider Nurse Practitioner Family
DX: K21.9 Gastro-esophageal reflux disease without esophagitis (principal); K59.09 Other constipation; R10.13 Epigastric pain
CPT/HCPCS: 99214

== ENCOUNTER → 2025-07-21 12:46 | Outpatient (BNVA) | payer MEDICAID, SELFPAY | PROVIDERS: PCP Internal Medicine; Visit Provider Nurse Practitioner Family | DX: K21.9 Gastro-esophageal reflux disease without esophagitis (principal); K59.09 Other constipation; R10.13 Epigastric pain | CPT/HCPCS: 99212 ==

== ENCOUNTER 2025-07-30 11:08 | Outpatient (AMB) | payer MEDICARE, MEDICAID, SELFPAY ==
[2025-07-30 11:12] VITALS: BP 138/52; PULSE 82; RESP 16; O2SAT 99; BMI 29.3
--- NOTE | 2025-07-30 11:12 | A.OFFVIS_ITS ---
Vital Signs 07/30/25 11:12 Height 5 ft 4 in Weight 171 lb BMI 29.3 BP 138/52 L Blood Pressure Location Rt brachial Position Sitting Respiration 16 Pulse 82 Pulse Source Pulse Oximeter Pulse Oximetry (%) 99 Oxygen Delivery Method Room Air Intake Visit Reasons: right shoulder injection Licensed Mortician Required: No Gun Barrel Finisher: Gun Barrel Finisher Present Accompanied by: Tan Mendez Allergies GEL ELECTRODES Allergy (Mild, Uncoded 07/30/25 11:14) RASH Medication List - Last Reconciled 07/30/25 by Monica Brock LPN acetaminophen (Tylenol Extra Strength) 500 mg PO Q6H PRN alcohol swabs pad topical amlodipine 2.5 mg PO DAILY aspirin 81 mg PO DAILY atenolol 50 mg PO DAILY atorvastatin 40 mg PO DAILY@1700 blood sugar diagnostic (FreeStyle Lite Strips) DIRECTED 4 TIMES A DAY blood-glucose sensor (Henley-Putnam UniversityStyle Marty 3 Plus Sensor device) Use daily As directed to monitor glucose blood-glucose,network control operator,cont (FreeStyle Marty 3 [place]) Use daily As directed to monitor blood glucose fyecmoiwmq-yoasytyacfcoy-jvtu 50-300-40 mg (Fioricet) 1 cap PO Q8H PRN cholecalciferol (vitamin D3) 50 mcg PO DAILY docusate sodium (Colace) Take one tablet daily empagliflozin (Jardiance) 10 mg PO QAM famotidine 40 mg PO BEDTIME ferrous sulfate 325 mg PO DAILY gabapentin 300 mg PO BID glucagon (Gvoke HypoPen 2-Pack) 1 mg (0.2 mL) subcut ONCE insulin glargine U-300 conc (Toujeo Max U-300 SoloStar) 50 units (0.1667 mL) subcut BEDTIME insulin lispro (Admelog SoloStar U-100 Insulin lispro) 15 u for small meals, 15 u for large, + 2 units for bg>200, + 3 units for BG >250, + 4 units bg >300mg/dl. Of note..for very light meal use only 6 units. subcut 3 times a day; 30 days Knee brace As directed lancets (FreeStyle Lancets) As directed lisinopril 40 mg PO DAILY metformin 500 mg PO BID 90 days pantoprazole (Protonix) 40 mg PO DAILY pen needle, diabetic Use QID As directed polyethylene glycol 3350 (Miralax) 17 grams PO DAILY 30 days semaglutide (Ozempic) 2 mg (0.75 mL) subcut QWEEK sumatriptan succinate mg PO HPI HPI right shoulder injection: Details: History of Present Illness The patient is a 65-year-old female presenting with right shoulder pain. The pain has been persistent despite previous interventions, including a prior injection in April, which provided relief for only one day. Physical therapy with electrotherapy was attempted but offered only temporary relief. The patient also reports knee pain exacerbated by cold and wet weather conditions. Pain Description - Onset: Persistent right shoulder pain - Quality: Severe enough to seek injection therapy - Location: Right shoulder - Exacerbating factors: Cold and wet weather for knee pain - Relieving factors: Temporary relief from injection and electrotherapy Physical Exam - Musculoskeletal: Tenderness in the right shoulder Results - Procedure: Right supraspinatus tendon injection under ultrasound guidance Pain Management - Affect: Pain impacts daily activities and mood - Analgesia: Previous injection provided only one day of relief - Activities of Daily Living: Pain limits physical activity Procedure - Right supraspinatus tendon injection performed under ultrasound guidance with 25 gauge needle to inject 30 mg of Kenalog and 3 mL of 0.25% ropivacaine. Image saved. [facility] Medical History (Updated 07/21/25 @ 13:34 by Lisseth Izquierdo CNP) Epigastric pain Abdominal pain Dysphagia Arthritis Anemia GI bleed Temporal headache Urinary incontinence Chronic constipation Fibromyalgia Primary osteoarthritis of knees, bilateral NAFLD (nonalcoholic fatty liver disease) Tubular adenoma of colon Essential hypertension Neuropathy Osteoarthritis DARIEL on CPAP Upper GI bleed Hepatomegaly History of alcohol abuse Stroke Depression Anxiety Hyperlipidemia LDL goal <70 Obesity with body mass index of 30.0-39.9 Type 2 diabetes mellitus with diabetic polyneuropathy Surgical History History of temporal artery biopsy Hx of esophagogastroduodenoscopy Hx of colonoscopy Family History Father Diabetes Mother Hypertension Daughter Breast cancer Ovarian cancer Social History Household Members: Family Household Members Other:: adult child and grandchild Are you a primary day care worker to a significant other at home: No Do you presently have visiting nurse or other home services: No Alcohol intake: former Patient Tobacco Use Status: Former Tobacco user Years Smoked: quit 10 years ago Current occupational status: disabled Current occupation: rt handed Physical Exam Vital Signs: Last Vital Signs Pulse 82 07/30/25 11:12 Resp 16 07/30/25 11:12 BP 138/52 L 07/30/25 11:12 Pulse Ox 99 07/30/25 11:12 Oxygen Delivery Method Room Air 07/30/25 11:12 BMI result Body Mass Index 29.3 Assessment & Plan Assessment & Plan (1) Impingement syndrome, shoulder, left: Code(s): M75.42 - Impingement syndrome of left shoulder Category: Medical Plan Plan Patient was informed and verbally consented to the use of an ambient scribe for clinic note documentation during this visit. 1. Right Shoulder Pain - Plan: Administered right supraspinatus tendon injection with Kenalog and ropivacaine. - Consideration: Discussed PRP injections not covered by insurance. 2. Knee Pain - Plan: Monitor symptoms and consider weather-related exacerbation management. Discussion Notes I discussed with the patient the option of a steroid injection for her right s [place] pain, noting that while it provides temporary relief, repeated use is not ideal. We also considered alternative injections, which are not covered by her insurance. The patient was informed about the procedure, and consent was obtained before proceeding with the injection. Patient Instructions - Monitor knee pain and avoid activities that exacerbate symptoms. - Follow up if shoulder pain persists or worsens. Coding Level of Care Code Procedure Only Diagnoses Impingement syndrome, shoulder, left M75.42
--- OUTSIDE RECORDS SUMMARY | 2025-07-30 12:52 | XMS_ITS | Clinical Summary ---
Author Organization [facility] Address [address] [address] Phone Care Team Providers Care Director Of Pediatric Rehabilitation Name Role Phone Mal Yin MD Primary [...] Active ferrous sulfate 325 mg (65 mg united keetoowah iron) tablet Take 1 tablet by mouth [...] 1978 HIV ONE-TIME SCREENING (18-65 YEARS) 1978 SCREENING FOR DIABETES 1995 MAMMOGRAM 2000 COLOGUARD 2005 COLONOSCOPY 2005 COLORECTAL CANCER SCREENING 2005 FIT TEST 2005 FOBT 2005 SIGMOIDOSCOPY 2005 VIRTUAL COLONOSCOPY 2005 ZOSTER VACCINES (1 of 2) 2010 PNEUMOCOCCAL VACCINES (50+ years) (2 of 2 - PCV) 04/21/2019 04/21/2018, 07/14/2012 RSV VACCINE (1 - Risk 60-74 years 1-dose series) 2020 Adult Td,Tdap Booster 07/14/2022 07/14/2012 INFLUENZA VACCINE (#1) 2025 , 09/07/2019, 08/26/2018, Additional history exists COVID-19 VACCINE (2 - season) 2025 03/11/2021 OSTEOPOROSIS SCREENING INITIAL (ONE-TIME) 2025 HEPATITIS A VACCINES Aged Out No long [...] topic Medical Devices Not on file Insurance [facility] [employer] [facility] [employer]GETHER M[employer] Care Teams Director Of Pediatric Rehabilitation Relationship Specialty Start Date End Date Mal Yin MD [address] [place] [address] [place] [address] PCP - General Internal Medicine 08/20/19 Additional Source Comments The information contained in this document represents components of the legal health record. It is not the complete legal health record.[facility]
--- OUTSIDE RECORDS SUMMARY | 2025-07-30 12:52 | XMS_ITS | Clinical Summary ---
Author Organization [facility] Facility Address [address] [address] Care Team Providers Care Credit Risk Specialist Name Role Phone Mal Yin MD Primary [...] Insurance [employer] Care Teams Credit Risk Specialist Relationship Specialty Start Date End Date Mal Yin MD [address] [place], [place] PCP - General Internal Medicine 12/20/21
--- OUTSIDE RECORDS SUMMARY | 2025-07-30 12:52 | XMS_ITS | Encounter Summary ---
Author Organization [facility] Address [address] [facility] [address] [place] [address] Phone Care Team Providers Care Shuttle Filler Name Role Phone Mal Yin MD Primary Care Provider Reason for Referral * Occupational Therapy (Routine) - Closed Specialty Diagnoses / Procedures Referred By Lito t Referred To Contact Occupational Therapy Diagnoses Personal history of transient ischemic attack (TIA), and cerebral infarction without residual deficits Mal Yin MD [address] [place] [address] Dr BOWIE [address] [place] [address] Phone: tel: fax: [address] [address] Phone: tel: Referral ID Status Reason Start Date Expiration Date Visits Re quested Visits Authorized [id number] Closed 09/01/2019 11/03/2019 3 3 Encounter Details Date Type Department Care Team (Latest Contact Info) Description 09/01/2019 Transcribe Orders [facility] Rehabilitation Services [address] [place] [address] Mal Yin MD [address] [place] [address] Dr BOWIE [address] [place] [address] [place] [id number] Encounter for rehabilitation (Primary Dx) Social History [...] Primary documented in this encounter Care Teams Shuttle Filler Relationship Specialty Start Date End Date Mal Yin MD [address] [place] [address] Dr BOWIE [address] [place] [address] PCP - General Internal Medicine 08/20/19 documented as of this encounter Additional Source Comments The information contained in this document represents components of the legal health record. It is not the complete legal health record.[facility]
--- OUTSIDE RECORDS SUMMARY | 2025-07-30 12:52 | XMS_ITS | Encounter Summary ---
Author Organization [facility] Address [address] [address] Phone Care Team Providers Care Liquor Blender Name Role Phone Mal Yin MD Primary Care Provider Encounter Details Date Type Department Care Team ([facility] st Contact Info) Description 08/30/2022 Ancillary Orders [facility] Medical [facility]ics [facility] Medicine [address] [place] [address] Ayaz Hanna MD [address] [place] [address] Orthopedics & Sports Medicine, [facility] [place] [address] [email or web address] Ankle pain Social History Tobacco Use Types [...] foot documented in this encounter Care Teams Liquor Blender Relationship Specialty Start Date End Date Mal Yin MD [address] [place] [address] Dr [place], [place] [address] PCP - General Internal Medicine 08/20/19 documented as of this encounter Additional Source Comments The information contained in this document represents components of the legal health record. It is not the complete legal health record.[facility]
== END 2025-07-30 12:09 | disposition home or self-care (01) ==
LOC: HO.PMC 11:09
PROVIDERS: PCP Internal Medicine; Visit Provider Internal Medicine
DX: M75.42 Impingement syndrome of left shoulder (principal)
CPT/HCPCS: 20611

== ENCOUNTER → 2025-07-30 11:08 | Outpatient (BNVA) | payer MEDICAID, SELFPAY | PROVIDERS: PCP Internal Medicine; Visit Provider Internal Medicine | DX: M75.41 Impingement syndrome of right shoulder (principal) | CPT/HCPCS: 20611 ==

== ENCOUNTER 2025-08-17 12:18 | Outpatient (AMB) | payer MEDICARE, MEDICAID, SELFPAY ==
--- NOTE | 2025-08-17 12:34 | MHC.OFFVIS ---
Vital Signs 08/17/25 12:34 Height 5 ft 4 in Weight 175 lb BMI 30.0 Intake Visit Reasons: Newprob-B/L hand Index finger pain/limited bending Intake Note: Delaney 65 yr old right hand dominant female who is retired, presents today for bilateral index finger pain. States her right is worse than his left. Pain started about 1 yr ago. She is complaining of limited ROM, swelling and has difficulty with picking up items. Patient has tried home exercise with no improvement. She also has numbness and tingling , her right index is also locking when grabbing stuff. Hx of left cubital tunnel done with Dr Peterson on 05/02/25. Last A1C was done about 2 months. *6. Allergies GEL ELECTRODES Allergy (Mild, Uncoded 08/17/25 12:39) RASH HPI HPI Newprob-B/L hand Index finger pain/limited bending: Details: Delaney is a 65 year old right hand dominant Diabetic woman who presents with multiple complaints today. Her chief complaint is of pain around the 2nd MCP joint of her right hand, onset ~1 year ago. She complains of stiffness, swelling, and difficulty picking objects up with her index fingers, R>L. She also complains of her right index finger getting stuck at times. She complains of numbness in her right hand. She says this is most bothersome at night. She has right carpal & cubital tunnel syndrome, and a Hx of left carpal & cubital tunnel release, DOS: 05/02/23. She had dense numbness in all digits bilaterally at her last appointment, with no improvement in her left hand at her first post-op appointment. She says she has normal sensation in all digits of her left hand. She is a Diabetic, her most recent HgA1c was 6.8% on 05/24/25 [facility] Medical History (Updated 08/17/25 @ 13:41 by Ming Ashraf) Epigastric pain Abdominal pain Dysphagia Arthritis Anemia GI bleed Temporal headache Urinary incontinence Chronic constipation Fibromyalgia Primary osteoarthritis of knees, bilateral NAFLD (nonalcoholic fatty liver disease) Tubular adenoma of colon Essential hypertension Neuropathy Osteoarthritis DARIEL on CPAP Upper GI bleed Hepatomegaly History of alcohol abuse Stroke Depression Anxiety Hyperlipidemia LDL goal <70 Obesity with body mass index of 30.0-39.9 Type 2 diabetes mellitus with diabetic polyneuropathy Surgical History History of temporal artery biopsy Hx of esophagogastroduodenoscopy Hx of colonoscopy Family History Father Diabetes Mother Hypertension Daughter Breast cancer Ovarian cancer Social History Household Members: Family Household Members Other:: adult child and grandchild Are you a primary child care centre director to a significant other at home: No Do you presently have visiting nurse or other home services: No Alcohol intake: former Patient Tobacco Use Status: Former Tobacco user Years Smoked: quit 10 years ago Current occupational status: disabled Current occupation: rt handed Review of Systems Const All systems reviewed & are unremarkable except as noted in HPI and below Physical Exam Vital Signs: BMI result Body Mass Index 30.0 Const General: no acute distress and alert Orientation/consciousness: patient oriented x3 Neuro General: patient oriented x3 Extrem Other: Evaluation of Right Upper Extremity: The patient is alert, oriented, and in no acute distress Neuro: Patient reports normal sensation to all digits today in clinic No thenar or intrinsic wasting Good APB muscle belly firing and good finger cross Vascular: Cap refill brisk ROM: She can make a fist and extend all her digits No locking or catching She says her index finger gets stuck in ~40 degrees MCP flexion, with extension at the PIP joint Most tender over the dorsal aspect of the 2nd MCP joint No A1 sona tenderness Tender over the extensor origin, just distal to the lateral epicondyle Some pain in this area with resisted wrist extension Radiographs: 3 views of the right hand were taken and viewed by me today in clinic. They show no fractures or dislocations. There are some early arthritic changes in the DIP joints. Nerve Conduction study: IMPRESSION:? 1. Qdex-sx-bhqupkyz bilateral median neuropathy across carpal tunnel. 2. Mild bilateral ulnar neuropathy across cubital tunnel. ? M Jose Davidson MD 01/31/2023 Psych Appearance: grossly normal Affect: normal affect Attitude: cooperative Assessment & Plan Assessment & Plan (1) Type 2 diabetes mellitus with diabetic polyneuropathy: Code(s): E11.42 - Type 2 diabetes mellitus with diabetic polyneuropathy Category: Medical Qualifiers: Diabetes mellitus residential insulin use: with hand upper and bottom lacer use Qualified Code(s): E11.42 - Type 2 diabetes mellitus with diabetic polyneuropathy; Z79.4 - belting and webbing inspector (current) use of insulin (2) Carpal tunnel syndrome of right wrist: Code(s): G56.01 - Carpal tunnel syndrome, right upper limb Category: Medical (3) Cubital tunnel syndrome on right: Code(s): G56.21 - Lesion of ulnar nerve, right upper limb Category: Medical (4) Fibromyalgia: Code(s): M79.7 - Fibromyalgia Category: Medical (5) Arthrosis of hand: Code(s): M19.049 - Primary osteoarthritis, unspecified hand Category: Medical (6) Right lateral epicondylitis: Code(s): M77.11 - Lateral epicondylitis, right elbow Category: Medical Plan Assessment & Plan: 1. 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 I discussed activity modifications, she is to work on ROM exercises at home, and she should limit or avoid any activities which cause her pain She will follow up in 4-6 weeks for a 2nd MCP joint injection, using the mini C-arm for guidance. This should be a 30 minute appointment. She may cancel this if she is doing well. 2. Right lateral epicondylitis I educated her about this condition I discussed operative and non-operative treatment options I recommend activity modification, she should limit or avoid any heavy gripping or lifting activities She is attending PT for her knee arthritis. I recommend she speak to them about this issue to work on exercises She says she was given forearm braces by her PCP. She should also speak to PT about how to correctly wear them 3. Right carpal tunnel syndrome, mild-moderate Symptoms intermittent, but daily, worse at night 4. Right cubital tunnel syndrome, mild Symptoms intermittent, but daily, worse at night 5. Left Carpal tunnel syndrome, S/P release Pre-operatively with Dense numbness Post-operatively with dense numbness DOS: 05/02/23 6. Left cubital tunnel syndrome, S/P release Pre-operatively with dense numbness Post-operatively with dense numbness No thenar or intrinsic wasting DOS: 05/02/23 Please note that greater than 35 minutes was spent with this patient going over the history, evaluating the patient and radiographs, formulating possible treatment options, discussing them with the patient, and documenting the visit. Scribed for Ria Peterson MD by Ming Ashraf, emergency medical dispatcher, on 08/17/25 at 1:00 PM, EST. Orders: Orders XR hand RT min 3V Today M79.641 - Pain in right hand Coding Level of Care Code Est Pt Level 4 (38095) Diagnoses Type 2 diabetes mellitus with diabetic polyneuropathy, with long-term current use of insulin E11.42; Z79.4 Diabetes mellitus residential insulin use: with hand upper and bottom lacer use Carpal tunnel syndrome of right wrist G56.01 Cubital tunnel syndrome on right G56.21 Fibromyalgia M79.7 Arthrosis of hand M19.049 Right lateral epicondylitis M77.11
--- OUTSIDE RECORDS SUMMARY | 2025-08-17 15:01 | XMS_ITS | Encounter Summary ---
Author Organization [facility] Address [address] [facility] [address] [place] [address] Phone Care Team Providers Care Area Operations Manager Name Role Phone Mal Yin MD Primary Care Provider Reason for Referral * Occupational Therapy (Routine) - Closed Specialty Diagnoses / Procedures Referred By Lito t Referred To Contact Occupational Therapy Diagnoses Personal history of transient ischemic attack (TIA), and cerebral infarction without residual deficits Mal Yin MD [address] [place] [address] Dr BOWIE [address] [place] [address] Phone: tel: fax: [address] [address] Phone: tel: Referral ID Status Reason Start Date Expiration Date Visits Re quested Visits Authorized [id number] Closed 09/01/2019 11/03/2019 3 3 Encounter Details Date Type Department Care Team (Latest Contact Info) Description 09/01/2019 Transcribe Orders [facility] Rehabilitation Services [address] [place] [address] Mal Yin MD [address] [place] [address] Dr BOWIE [address] [place] [address] [place] [address] Encounter for rehabilitation (Primary Dx) Social History [...] Diagnoses Orde r Schedule Ambulatory referral to [facility] Occupational Therapy Outpatient Referral Routine Encounter for rehabilitation Ordered: 09/01/2019 documented as of this encounter Visit Diagnoses Diagnosis Encounter for rehabilitation- Primary documented in this encounter Care Teams Area Operations Manager Relationship Specialty Start Date End Date Mal Yin MD [address] [place] [address] Dr BOWIE [address] [place] [id number] PCP - General Internal Medicine 08/20/19 documented as of this encounter Additional Source Comments The information contained in this document represents components of the legal health record. It is not the complete legal health record.[facility]
--- OUTSIDE RECORDS SUMMARY | 2025-08-17 15:01 | XMS_ITS | Clinical Summary ---
Author Organization [facility] Facility Address [address] [address] Care Team Providers Care Pot Firer Name Role Phone Mal Yin MD Primary [...] Insurance [employer] Medicaid [employer] Medicaid Care Teams Pot Firer Relationship Specialty Start Date End Date Mal Yin MD [address] [place], [place] PCP - General Internal Medicine 12/20/21
--- OUTSIDE RECORDS SUMMARY | 2025-08-17 15:01 | XMS_ITS | Clinical Summary ---
Author Organization [facility] Address [address] [address] Phone Care Team Providers Care Inletter Name Role Phone Mal Yin MD Primary [...] Active ferrous sulfate 325 mg (65 mg [place] iron) tablet Take 1 tablet by mouth [...] FOBT 2005 SIGMOIDOSCOPY 2005 VIRTUAL COLONOSCOPY 2005 RSV VACCINE (1 - Risk 50-74 years 1-dose series) 2010 ZOSTER VACCINES (1 of 2) 2010 PNEUMOCOCCAL VACCINES (50+ years) (2 of 2 - PCV) 04/21/2019 04/21/2018, 07/14/2012 Adult Td,Tdap Booster 07/14/2022 07/14/2012 INFLUENZA VACCINE [...] topic Medical Devices Not on file Insurance [facility] [employer] [facility] [employer] Care Teams Inletter Relationship Specialty Start Date End Date Mal Yin MD [address] [place] [address] [place] [address] PCP - General Internal Medicine 08/20/19 Additional Source Comments The information contained in this document represents components of the legal health record. It is not the complete legal health record.[facility]
--- OUTSIDE RECORDS SUMMARY | 2025-08-17 15:01 | XMS_ITS | Encounter Summary ---
Author Organization [facility] Address [address] [address] Phone Care Team Providers Care Library Monitor Name Role Phone Mal Yin MD Primary Care Provider Encounter Details Date Type Department Care Team ([facility] st Contact Info) Description 08/30/2022 Ancillary Orders [facility] Medical [facility] Orthopedics & Sports Medicine [address] [place] [address] Ayaz Hanna MD [address] [place] [address] Orthopedics & Sports Medicine, [facility] [place] [address] [email or web address] Ankle pain Social History Tobacco Use Types [...] foot documented in this encounter Care Teams Library Monitor Relationship Specialty Start Date End Date Mal Yin MD [address] [place] [address] Dr [place], [place] [address] PCP - General Internal Medicine 08/20/19 documented as of this encounter Additional Source Comments The information contained in this document represents components of the legal health record. It is not the complete legal health record.[facility]
== END 2025-08-17 13:42 | disposition home or self-care (01) ==
LOC: HO.HOS 12:19
PROVIDERS: PCP Internal Medicine; Visit Provider Orthopaedic Surgery
DX: E11.42 Type 2 diabetes mellitus with diabetic polyneuropathy (principal); Z79.4 Long term (current) use of insulin; G56.01 Carpal tunnel syndrome, right upper limb; G56.21 Lesion of ulnar nerve, right upper limb; M79.7 Fibromyalgia; M19.049 Primary osteoarthritis, unspecified hand; M77.11 Lateral epicondylitis, right elbow
CPT/HCPCS: 99214

== ENCOUNTER 2025-08-17 12:18 | Outpatient (REF) | payer MEDICAID, SELFPAY ==
--- NOTE | ~2025-08-17 | XR_ITS ---
EXAMINATION: XR HAND 3 OR MORE VIEWS RIGHT HISTORY: M79.641 - Pain in right hand COMPARISON: Comparison is made with the prior examination dated 10/09/2018. FINDINGS: Three views of the right hand are submitted. Osseous mineralization is normal. There is no fracture or dislocation. The joint spaces are preserved. The soft tissues are unremarkable. XR/XR hand RT min 3V IMPRESSION: Unremarkable examination of the right hand. Electronically signed by: Dudley Corbin MD 08/17/2025 01:56 PM EDT
== END 2025-08-17 12:19 | disposition home or self-care (01) ==
LOC: HO.HOSX 12:18
PROVIDERS: PCP Internal Medicine; Visit Provider Orthopaedic Surgery
DX: M19.041 Primary osteoarthritis, right hand (principal); M77.11 Lateral epicondylitis, right elbow; E11.42 Type 2 diabetes mellitus with diabetic polyneuropathy; G56.01 Carpal tunnel syndrome, right upper limb; G56.21 Lesion of ulnar nerve, right upper limb; M79.7 Fibromyalgia; Z79.4 Long term (current) use of insulin
CPT/HCPCS: 73130; 99212

== ENCOUNTER → 2025-08-17 13:13 | Outpatient (BNV) | payer MEDICARE, MEDICAID, SELFPAY | PROVIDERS: PCP Internal Medicine; Visit Provider Radiology Diagnostic Radiology | DX: M79.641 Pain in right hand (principal) | CPT/HCPCS: 73130 ==

== ENCOUNTER → 2025-08-23 14:07 | Outpatient (BNVA) | payer MEDICARE, MEDICAID, SELFPAY | PROVIDERS: PCP Internal Medicine; Visit Provider Physician Assistant | DX: I10 Essential (primary) hypertension (principal); E11.40 Type 2 diabetes mellitus with diabetic neuropathy, unspecified; E11.65 Type 2 diabetes mellitus with hyperglycemia; E78.5 Hyperlipidemia, unspecified; M79.7 Fibromyalgia; G47.33 Obstructive sleep apnea (adult) (pediatric); Z79.4 Long term (current) use of insulin; Z79.899 Other long term (current) drug therapy | CPT/HCPCS: 82947; 99212 ==

== ENCOUNTER → 2025-08-23 14:07 | Outpatient (AMB) | payer MEDICARE, MEDICAID, SELFPAY ==
--- NOTE | 2025-08-23 14:10 | MHC.OFFVIS ---
Vital Signs 08/23/25 14:11 Height 5 ft 4 in Weight 169 lb 5.04 oz BMI 29.1 BP 132/78 Blood Pressure Location Lt brachial Position Sitting Pulse 72 Pulse Source Pulse Oximeter Pulse Oximetry (%) 96 Oxygen Delivery Method Room Air Intake Visit Reasons: dm Intake Note: Patient present today for Type 2 Diabetes Mellitus Last Diabetic eye exam:?Last year, springtime Last Podiatry Visit:?She has to call for appointment. Random Glucose:?132 mg/dl HgA1C: 6.8%? 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,cont (FreeStyle Marty 3 [place]) Use daily As directed to monitor blood glucose scddfwefcm-mtpsqljcvygwu-jaqp 50-300-40 mg (Fioricet) 1 cap PO Q8H PRN cholecalciferol (vitamin D3) 50 mcg PO DAILY docusate sodium (Colace) Take one tablet daily empagliflozin (Jardiance) 10 mg PO QAM famotidine 40 mg PO BEDTIME ferrous sulfate 325 mg PO DAILY gabapentin 300 mg PO BID glucagon (Gvoke HypoPen 2-Pack) 1 mg (0.2 mL) subcut ONCE insulin glargine U-300 conc (Toujeo Max U-300 SoloStar) 50 units (0.1667 mL) subcut BEDTIME insulin lispro (Admelog SoloStar U-100 Insulin lispro) 15 u for small meals, 15 u for large, + 2 units for bg>200, + 3 units for BG >250, + 4 units bg >300mg/dl. Of note..for very light meal use only 6 units. subcut 3 times a day; 30 days Knee brace As directed lancets (FreeStyle Lancets) As directed lisinopril 40 mg PO DAILY metformin 500 mg PO BID 90 days pantoprazole (Protonix) 40 mg PO DAILY pen needle, diabetic Use QID As directed polyethylene glycol 3350 (Gavilax) 17 grams PO DAILY semaglutide (Ozempic) 2 mg (0.75 mL) subcut QWEEK sumatriptan succinate mg PO HPI HPI dm: Details: Patient is a 64 yo female with DM type 2 diagnosed 2009, who presents for visit for follow up management of diabetes . Past medical history: HTN, HLD. fibromyalgia, ostearthritis, DARIEL, neuropathy Her a1c was 6.8. Diabetes medications: Ozempic 2 mg Qwkly, Toujeo 50 units, admelog sliding scale 5-10 units with meals, metformin 500 mg twice a day and jardiance 10 mg. She states that this regimen has been very effective for her. She does not want to make adjustments. -she is off of invokana due to insurance reasons, she does not like taking higher doses of metformin it causes stomach upset, trulicity caused nausea, lantus ineffective Blood glucose monitoring: Gmi 6.5%, average glucose 133 variability 24%. Usage 77%. Very hyperglycemic 1%, hyperglycemic 7%, in range 92%, hypoglycemic 0%. Hypoglycemia: No longer experiencing any hypoglycemic events Symptoms of shakiness and sweatiness. 4 oz of juice or 2 tb sugar or glucose tabs. Hyperglycemia: Has not been having many episodes of high glucose readings She is on an PRIYA-inhibitor and statin CV: Bp today is 132/78. No cp, sob, dizziness. She is on atenolol 50 mg daily, amlodipine 2.5 mg daily and lisinopril 40 mg. Compliant with atorvastatin 40 mg [facility] Medical History (Updated 08/17/25 @ 13:41 by Ming Ashraf) Epigastric pain Abdominal pain Dysphagia Arthritis Anemia GI bleed Temporal headache Urinary incontinence Chronic constipation Fibromyalgia Primary osteoarthritis of knees, bilateral NAFLD (nonalcoholic fatty liver disease) Tubular adenoma of colon Essential hypertension Neuropathy Osteoarthritis DARIEL on CPAP Upper GI bleed Hepatomegaly History of alcohol abuse Stroke Depression Anxiety Hyperlipidemia LDL goal <70 Obesity with body mass index of 30.0-39.9 Type 2 diabetes mellitus with diabetic polyneuropathy Surgical History History of temporal artery biopsy Hx of esophagogastroduodenoscopy Hx of colonoscopy Family History Father Diabetes Mother Hypertension Daughter Breast cancer Ovarian cancer Social History Household Members: Family Household Members Other:: adult child and grandchild Are you a primary personal care service provider to a significant other at home: No Do you presently have visiting nurse or other home services: No Alcohol intake: former Patient Tobacco Use Status: Former Tobacco user Years Smoked: quit 10 years ago Current occupational status: disabled Current occupation: rt handed Physical Exam Vital Signs: Last Vital Signs Pulse 72 08/23/25 14:11 BP 132/78 08/23/25 14:11 Pulse Ox 96 08/23/25 14:11 Oxygen Delivery Method Room Air 08/23/25 14:11 BMI result Body Mass Index 29.1 Const Orientation/consciousness: patient oriented x3 HEENT Ears: hearing grossly normal bilaterally Neck Neck: Yes no lymphadenopathy Thyroid: Thyroid normal Carotids: no bruits Lymphatic: no lymphadenopathy noted Resp Auscultation: clear to auscultation bilaterally Cardio Rate: regular rate Rhythm: regular rhythm Heart sounds: S1 normal heart sound present and S2 normal heart sound present Peripheral pulses: dorsalis pedis present Skin General skin exam: no rashes or lesions noted Neuro General: patient oriented x3 and no focal motor deficits Extrem Other: Monofilament sensation absent bilaterally. Vibratory sensation absent bilaterally. Skin intact. General: Yes normal to inspection Results Reviewed Results Reviewed: Laboratory Tests 07/02/25 08:00 Estimat Average Glucose 148 Hemoglobin A1c % 6.8 H AST 21 ALT 9 Triglycerides 131 Cholesterol 144 LDL Cholesterol, Calc 75 HDL Cholesterol 43 Assessment & Plan Assessment & Plan (1) Uncontrolled type 2 diabetes mellitus with hyperglycemia, with long-term current use of insulin: Code(s): E11.65 - Type 2 diabetes mellitus with hyperglycemia; Z79.4 - intermediate project manager (current) use of insulin Category: Medical Plan: continue current plan referral to podiatry we will follow up in 3 months dm labs prior to appointment (2) Essential hypertension: Code(s): I10 - Essential (primary) hypertension Category: Medical Plan: bp wnl, continue current plan (3) Hyperlipidemia LDL goal <70: Code(s): E78.5 - Hyperlipidemia, unspecified Category: Medical Plan: LDL at goal continue atorvastatin Orders: Referrals Podiatry Referral E11.40 - Type 2 diabetes mellitus with diabetic neuropathy, unspecified, E11.65 - Type 2 diabetes mellitus with hyperglycemia, Z79.4 - alf (current) use of insulin Coding Level of Care Code Est Pt Level 4 (62323) Complex EM visit Add On G2211 Diagnoses Uncontrolled type 2 diabetes mellitus with hyperglycemia, with long-term current use of insulin E11.65; Z79.4 Essential hypertension I10 Hyperlipidemia LDL goal <70 E78.5
[2025-08-23 14:11] VITALS: BP 132/78; PULSE 72; O2SAT 96; BMI 29.1
[2025-08-23 14:29] LABS: Glucose, Whole Blood 132 mg/dL (60-115)
== END ==
LOC: HO.ENCR 14:08
PROVIDERS: PCP Internal Medicine; Visit Provider Physician Assistant
DX: E11.65 Type 2 diabetes mellitus with hyperglycemia (principal); Z79.4 Long term (current) use of insulin; I10 Essential (primary) hypertension; E78.5 Hyperlipidemia, unspecified

== ENCOUNTER 2025-08-25 10:11 | Outpatient (RCR) | payer MEDICARE, MEDICAID, SELFPAY ==
--- NOTE | 2025-07-16 17:26 | MHC.PT.EP ---
[facility] [place] [facility] [place] [facility] [place] [facility] [address] Juventino Rivera [address] [phone] F: [phone] F: [phone] F: [phone] F: [phone] Physical Therapy Plan of Care Date of Evaluation: 07/16/25 Date of Surgery: Diagnosis: B shoulder pain. Assessment: Pt is a 64 y/o female Fibromyalgia, Essential hypertension, Osteoarthritis, Hepatomegaly, Stroke, DMII polyneuropathy who is referred to PT for eval and treat of B shoulder pain which is resulting in decreased tolerance for dressing her hair, reaching shelves, performing kitchen tasks, dressing pullovers secondary to decreased B shoulder ROM and Strength, TTP for R anterior shoulder, sedentary lifestyle, chronic medical conditions, and pain. Pt is deemed an appropriate candidate to receive skilled PT services to address their physical impairments in order to improve their functional ability. Frequency and Duration: The patient will be seen 2 x/ wk x 3 wks. Short Term Goals: Initiate home program. improve baseline pain to < 7/10; initial: 10/10 Senior Care Goals: I with home program. Pt will improve SPADI outcome by at least 13 points. Pt will be able to dress a pullover with at most 5/10 pain/ difficulty: 10/10. Pt will be able to wash her hair with managed Sx; initial: 10/10 difficulty. Treatment Plan: Modalities to reduce pain, spasms and effusion. Manual therapy to restore motion and function. Therapeutic exercise to improve strength and flexibility. Neuromuscular re-education for posture and balance. Therapeutic activities to return to functional activities of daily living. Electronically signed by: Jayro Javed PT. Please sign and return to therapist. Thank you for your referral.
--- NOTE | 2025-08-25 17:35 | MHC.PT.DC ---
[facility] [place] Office [place] Office [place] Office [address] Juventino Rivera 140 [facility] [phone] F: [phone] F: [phone] F: [phone] F: [phone] Physical Therapy Discharge Report Diagnosis: B shoulder pain. Date of Surgery: Date of Evaluation: 07/16/25 Date of Discharge: 08/25/25 Treatments to Date: 6 Cancellations to Date: No Shows to Date: Discharge Status: Recommend MD Follow-up Discharge Summary: Delaney has been an active participant in her therapy in the clinic though has not made meaningful improvement in her function. Pt is highly motivated for MRI. Electronically signed by: Jayro Javed PT. Please sign and return to therapist. Thank you for your referral.
== END 2025-08-25 17:35 | disposition home or self-care (01) ==
LOC: HO.PT 10:11
PROVIDERS: PCP Internal Medicine; Visit Provider Internal Medicine
DX: M25.811 Other specified joint disorders, right shoulder (principal); M75.42 Impingement syndrome of left shoulder
CPT/HCPCS: 97014; 97110; 97162

== ENCOUNTER 2025-08-30 11:36 | Outpatient (AMB) | payer MEDICARE, MEDICAID, SELFPAY ==
--- NOTE | 2025-08-30 12:06 | A.OFFVIS_ITS ---
Vital Signs 08/30/25 12:07 Height 5 ft 4 in Weight 169 lb BMI 29.0 BP 130/50 L Blood Pressure Location Rt brachial Position Sitting Pulse 79 Pulse Source Pulse Oximeter Pulse Oximetry (%) 99 Oxygen Delivery Method Room Air Intake Visit Reasons: knee injection Dining Service Worker Required: No Community Outreach Advocate: Community Outreach Advocate Present Accompanied by: Tan Mendez Allergies GEL ELECTRODES Allergy (Mild, Uncoded 08/30/25 12:09) RASH Medication List - Last Reconciled 08/30/25 by Monica Brock LPN acetaminophen (Tylenol Extra Strength) 500 mg PO Q6H PRN alcohol swabs pad topical amlodipine 2.5 mg PO DAILY aspirin 81 mg PO DAILY atenolol 50 mg PO DAILY atorvastatin 40 mg PO DAILY@1700 blood sugar diagnostic (FreeStyle Lite Strips) DIRECTED 4 TIMES A DAY blood-glucose sensor ([place] EnergyStyle Marty 3 Plus Sensor device) Use daily As directed to monitor glucose blood-glucose,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,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 (FreeStyle Marty 3 [place]) Use daily As directed to monitor blood glucose xngnexprbl-rzycadyjohtdz-nypt 50-300-40 mg (Fioricet) 1 cap PO Q8H PRN cholecalciferol (vitamin D3) 50 mcg PO DAILY docusate sodium (Colace) Take one tablet daily empagliflozin (Jardiance) 10 mg PO QAM famotidine 40 mg PO BEDTIME ferrous sulfate 325 mg PO DAILY gabapentin 300 mg PO BID glucagon (Gvoke HypoPen 2-Pack) 1 mg (0.2 mL) subcut ONCE insulin glargine U-300 conc (Toujeo Max U-300 SoloStar) 50 units (0.1667 mL) subcut BEDTIME insulin lispro (Admelog SoloStar U-100 Insulin lispro) 15 u for small meals, 15 u for large, + 2 units for bg>200, + 3 units for BG >250, + 4 units bg >300mg/dl. Of note..for very light meal use only 6 units. subcut 3 times a day; 30 days Knee brace As directed lancets (FreeStyle Lancets) As directed lisinopril 40 mg PO DAILY metformin 500 mg PO BID 90 days pantoprazole (Protonix) 40 mg PO DAILY pen needle, diabetic Use QID As directed polyethylene glycol 3350 (Gavilax) 17 grams PO DAILY semaglutide (Ozempic) 2 mg (0.75 mL) subcut QWEEK sumatriptan succinate mg PO HPI HPI knee injection: Details: History of Present Illness The patient is a 65-year-old female presenting with right knee pain for a knee injection. The patient has a history of right shoulder pain, for which she previously received an injection that provided some relief. She was undergoing therapy, which aggravated the shoulder pain during movement. The patient mentioned switching her insurance to [facility] starting September 04, which may affect her treatment options. She discussed the possibility of using a device for pain management, which was previously considered. Pain Description - Right knee pain: Described as dull and severe, exacerbated by movement. - Right shoulder pain: Previously managed with an injection, aggravated by physical therapy movements. Physical Exam - Musculoskeletal: Right knee was prepped and injected without resistance, indicating no immediate complications during the procedure Results Pain Management - Analgesia: Patient received knee injection for pain relief. - Activities of Daily Living: Pain impacts movement, particularly during physical therapy. Procedure - Right knee injection: Informed consent was obtained. Patient was placed in a sitting position. Medial parapatellar approach was used. The knee was prepped with ChloraPrep. 20 mg of Kenalog was injected through a 25-gauge needle without resistance. The patient tolerated the procedure well with no immediate complications. There was no blood loss. [facility] Medical History (Updated 08/17/25 @ 13:41 by Ming Ashraf) Epigastric pain Abdominal pain Dysphagia Arthritis Anemia GI bleed Temporal headache Urinary incontinence Chronic constipation Fibromyalgia Primary osteoarthritis of knees, bilateral NAFLD (nonalcoholic fatty liver disease) Tubular adenoma of colon Essential hypertension Neuropathy Osteoarthritis DARIEL on CPAP Upper GI bleed Hepatomegaly History of alcohol abuse Stroke Depression Anxiety Hyperlipidemia LDL goal <70 Obesity with body mass index of 30.0-39.9 Type 2 diabetes mellitus with diabetic polyneuropathy Surgical History History of temporal artery biopsy Hx of esophagogastroduodenoscopy Hx of colonoscopy Family History Father Diabetes Mother Hypertension Daughter Breast cancer Ovarian cancer Social History Household Members: Family Household Members Other:: adult child and grandchild Are you a primary patient care nursing assistant to a significant other at home: No Do you presently have visiting nurse or other home services: No Alcohol intake: former Patient Tobacco Use Status: Former Tobacco user Years Smoked: quit 10 years ago Current occupational status: disabled Current occupation: rt handed Physical Exam Vital Signs: Last Vital Signs Pulse 79 08/30/25 12:07 BP 130/50 L 08/30/25 12:07 Pulse Ox 99 08/30/25 12:07 Oxygen Delivery Method Room Air 08/30/25 12:07 BMI result Body Mass Index 29.0 Assessment & Plan Assessment & Plan (1) Impingement of right shoulder: Code(s): M25.811 - Other specified joint disorders, right shoulder Category: Medical Plan Plan Patient was informed and verbally consented to the use of an ambient scribe for clinic note documentation during this visit. 1. Right Knee Pain - Plan to continue with injections as needed, reducing dosage to minimize potential side effects. - Consideration of alternative pain management devices pending insurance approval. 2. Right Shoulder Pain - Previous injection provided partial relief; continue monitoring and adjust therapy as needed. - MRI of the shoulder was ordered after completion of physical therapy sessions without meaningful improvement in her symptoms. Discussion Notes During the visit, we discussed the patient's ongoing knee and shoulder pain management strategies. The patient was informed about the need to reduce the dosage of injections to prevent potential side effects, and the possibility of using alternative pain management devices was considered. We also reviewed the plan to order an MRI for the shoulder after completing physical therapy sessions. Patient Instructions - Continue with prescribed knee injections as needed, but be aware of reduced dosage. - Follow up with insurance regarding approval for alternative pain management devices. - Complete physical therapy sessions before scheduling an MRI for the shoulder. Orders: Orders MR shoulder RT wo con 08/30/25 M25.811 - Other specified joint disorders, right shoulder Coding Level of Care Code Est Pt Level 4 (97564) Diagnoses Impingement of right shoulder M25.811
[2025-08-30 12:07] VITALS: BP 130/50; PULSE 79; O2SAT 99; BMI 29.0
--- OUTSIDE RECORDS SUMMARY | 2025-08-30 15:00 | XMS_ITS | Clinical Summary ---
Author Organization [facility] Address [address] [address] Phone Care Team Providers Care Instructor Of Sociology Name Role Phone Mal Yin MD Primary [...] Active ferrous sulfate 325 mg (65 mg [place] iron) tablet Take 1 tablet by mouth [...] topic Medical Devices Not on file Insurance [facility] [employer] [facility] M[employer] TO[employer]HER MCO Care Teams Instructor Of Sociology Relationship Specialty Start Date End Date Mal Yin MD [address] [place] [address] [place] [address] PCP - General Internal Medicine 08/20/19 Additional Source Comments The information contained in this document represents components of the legal health record. It is not the complete legal health record.[facility]
--- OUTSIDE RECORDS SUMMARY | 2025-08-30 15:00 | XMS_ITS | Clinical Summary ---
Author Organization [facility] Facility Address [address] [address] Care Team Providers Care Cloud Architect Name Role Phone Mal Yin MD Primary Care Provider [phone] Allergies No known active allergies Medications triamcinolone [...] Insurance [employer] Care Teams Cloud Architect Relationship Specialty Start Date End Date Mal Yin MD [address] [place], [place] PCP - General Internal Medicine 12/20/21
--- OUTSIDE RECORDS SUMMARY | 2025-08-30 15:00 | XMS_ITS | Encounter Summary ---
Author Organization [facility] Address [address] [facility] [address] [place] [address] Phone Care Team Providers Care Sewer Contractor Name Role Phone Mal Yin MD Primary Care Provider Reason for Referral * Occupational Therapy (Routine) - Closed Specialty Diagnoses / Procedures Referred By Lito t Referred To Contact Occupational Therapy Diagnoses Personal history of transient ischemic attack (TIA), and cerebral infarction without residual deficits Mal Yin MD [address] [place] [address] Dr BOWIE [address] [place] [address] Phone: tel: fax: [address] [address] Phone: tel: Referral ID Status Reason Start Date Expiration Date Visits Re quested Visits Authorized [id number] Closed 09/01/2019 11/03/2019 3 3 Encounter Details Date Type Department Care Team (Latest Contact Info) Description 09/01/2019 Transcribe Orders [facility] [address] [place] [address] Mal Yin MD [address] [place] [address] Dr BOWIE [address] [place] [address] [place] [id number] Encounter for rehabilitation (Primary Dx) Social History [...] Diagnoses Orde r Schedule Ambulatory referral to [facility] Occupational Therapy Outpatient Referral Routine Encounter for rehabilitation Ordered: 09/01/2019 documented as of this encounter Visit Diagnoses Diagnosis Encounter for rehabilitation- Primary documented in this encounter Care Teams Sewer Contractor Relationship Specialty Start Date End Date Mal Yin MD [address] [place] [address] Dr BOWIE [address] [place] [id number] PCP - General Internal Medicine 08/20/19 documented as of this encounter Additional Source Comments The information contained in this document represents components of the legal health record. It is not the complete legal health record.[facility]
--- OUTSIDE RECORDS SUMMARY | 2025-08-30 15:00 | XMS_ITS | Encounter Summary ---
Author Organization [facility] Address [address] [address] Phone Care Team Providers Care Continuous Vulcanizing Machine Operator Name Role Phone Mal Yin MD Primary Care Provider Encounter Details Date Type Department Care Team ([facility] st Contact Info) Description 08/30/2022 Ancillary Orders [facility] [address] [place] [address] Ayaz Hanna MD [address] [place] [address] Orthopedics & Sports Medicine, [facility] [place] [address] [email or web address] Ankle pain Social History [...] foot documented in this encounter Care Teams Continuous Vulcanizing Machine Operator Relationship Specialty Start Date End Date Mal Yin MD [address] [place] [address] Dr [place], [place] [address] PCP - General Internal Medicine 08/20/19 documented as of this encounter Additional Source Comments The information contained in this document represents components of the legal health record. It is not the complete legal health record.[facility]
== END 2025-08-30 12:40 | disposition home or self-care (01) ==
LOC: HO.PMC 11:36
PROVIDERS: PCP Internal Medicine; Visit Provider Internal Medicine
DX: M25.811 Other specified joint disorders, right shoulder (principal); M25.561 Pain in right knee
CPT/HCPCS: 20610; 99214

== ENCOUNTER → 2025-08-30 11:36 | Outpatient (BNVA) | payer MEDICARE, MEDICAID, SELFPAY | PROVIDERS: PCP Internal Medicine; Visit Provider Internal Medicine | DX: M25.811 Other specified joint disorders, right shoulder (principal); M25.561 Pain in right knee | CPT/HCPCS: 20610; 99212; J3301 ==

== ENCOUNTER 2025-09-03 13:07 | Outpatient (AMB) | payer MEDICARE, MEDICAID, SELFPAY ==
[2025-09-03 13:16] VITALS: BP 126/64; PULSE 87; O2SAT 97; BMI 28.7
--- NOTE | 2025-09-03 13:16 | MHC.OFFVIS ---
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 Patient states here to establish care. Reliable for CME. Last sleep study was long time ago at [facility]. Patient insurance will be changing insurance and will be effective as of tomorrow. Allergies GEL ELECTRODES Allergy (Mild, Uncoded 08/30/25 12:09) RASH HPI Comments Details: 65 year old female diagnosed with DARIEL and needs a sleep study per her insurance requirement. She had a stroke about 10 years ago and was diagnosed with DARIEL. She has an airfit f30 freedom full face mask and mouth gets dried due to the forceful pressures at night causing mask to come off of her face. The machine has not been working properly as it blows hot air on her face. She goes to bed between midnight and wakes up at 5am, has 3-4 bathroom breaks due to t2dm, her sugar rises at night and drinks plenty. She has morning headaches and migraines which can last about 1 hour or more sumatriptan prn. BP are well managed. She has acid reflux and a ventral hernia takes protonix for symptom management. She has neuropathy bilaterally in lower extremities, she moves them all night. Her mood, memory and diet are stable. Nephrology note reviewed with pt. She has carpal tunnel syndrome bilaterally median nerve distribution, with release. She also had cubital tunnel syndrome r. hand. [facility] Medical History Epigastric pain Abdominal pain Dysphagia Arthritis Anemia GI bleed Temporal headache Urinary incontinence Chronic constipation Fibromyalgia Primary osteoarthritis of knees, bilateral NAFLD (nonalcoholic fatty liver disease) Tubular adenoma of colon Essential hypertension Neuropathy Osteoarthritis DARIEL on CPAP Upper GI bleed Hepatomegaly History of alcohol abuse Stroke Depression Anxiety Hyperlipidemia LDL goal <70 Obesity with body mass index of 30.0-39.9 Type 2 diabetes mellitus with diabetic polyneuropathy Surgical History History of temporal artery biopsy Hx of esophagogastroduodenoscopy Hx of colonoscopy Family History Father Diabetes Mother Hypertension Daughter Breast cancer Ovarian cancer Social History Household Members: Family Household Members Other:: adult child and grandchild Are you a primary healthcare interpreter to a significant other at home: No Do you presently have visiting nurse or other home services: No Alcohol intake: former Patient Tobacco Use Status: Former Tobacco user Years Smoked: quit 10 years ago Current occupational status: disabled Current occupation: rt handed Physical Exam Vital Signs: Last Vital Signs Pulse 87 09/03/25 13:16 BP 126/64 09/03/25 13:16 Pulse Ox 97 09/03/25 13:16 Oxygen Delivery Method Room Air 09/03/25 13:16 BMI result Body Mass Index 28.7 Const General: cooperative, comfortable and no acute distress Nutritional Appearance: overweight Orientation/consciousness: patient oriented x3 Limitations: ambulation with walker HEENT Face and sinus: Yes face symmetric Teeth and gingiva: other (mallampti score is 4) Eyes Pupils: Equal, round and reactive pupils present Neck Neck: Yes full ROM Resp Effort & Inspection: normal respiratory effort and able to speak in complete sentences Neuro General: patient oriented x3 and moves all extremities Cranial nerves: Yes Equal, round and reactive pupils present, Yes Normal facial strength present, Yes Ability to bilaterally rotate head present and Yes Ability to bilaterally elevate shoulders present Cognition (Neuro): normal cognition Gait exam (Neuro): Normal gait present and Assistive device used Motor exam (neuro): Abnormal motor strength present and Abnormal muscle tone present Psych Appearance: well kempt Speech and movement: Slowed movement present (Neuro) Affect: normal affect Attitude: cooperative Thought process: Normal thought process present Results Reviewed Results Reviewed: Nephrology note reviewed with pt. Labs reviewed with pt. Assessment & Plan Assessment & Plan (1) Excessive daytime sleepiness: Code(s): G47.19 - Other hypersomnia Category: Medical (2) Acid reflux: Comment: EGD 06/10/2020: normal upper endoscopy findings. No evidence of esophagitis or suggestion of any Cabrera's disease. Without hiatal hernia. Code(s): K21.9 - Gastro-esophageal reflux disease without esophagitis Category: Medical Qualifiers: Esophagitis presence: without esophagitis Qualified Code(s): K21.9 - Gastro-esophageal reflux disease without esophagitis (3) Chronic fatigue: Code(s): R53.82 - Chronic fatigue, unspecified Category: Medical Plan PSG in lab due to h/o stroke. Acid Reflex / GERD she has a ventral hernia f/u w GI, is on Protonix. Labs r/o anemia, causes for fatigue. Migraines on sumatriptan and Fiorect. prn. F/u in 3 months Orders: Orders Methylmalonic Acid Today G47.9 - Sleep disorder, unspecified, R53.82 - Chronic fatigue, unspecified, R53.83 - Other fatigue Vitamin D 25-OH Total Today R53.82 - Chronic fatigue, unspecified Vitamin B12 and Folate Today R53.82 - Chronic fatigue, unspecified RT PSG in-lab sleep study Today G47.19 - Other hypersomnia, K21.9 - Gastro-esophageal reflux disease without esophagitis Comprehensive Met. Panel Today R53.82 - Chronic fatigue, unspecified Complete Blood Count no Diff Today R53.82 - Chronic fatigue, unspecified Ferritin Today R53.82 - Chronic fatigue, unspecified Hemoglobin A1c Today R53.82 - Chronic fatigue, unspecified IRON PROFILE Today G47.9 - Sleep disorder, unspecified, R53.82 - Chronic fatigue, unspecified, R53.83 - Other fatigue Homocysteine Today G47.9 - Sleep disorder, unspecified, R53.82 - Chronic fatigue, unspecified, R53.83 - Other fatigue Magnesium Today R53.82 - Chronic fatigue, unspecified TSH reflex Free T4 Today R53.82 - Chronic fatigue, unspecified Patient Instructions: Sleep Hygiene provided: set a scheduled bedtime and wake time to help regulate the circadian rhythm and balance the release of pituitary hormones. Sleep in a dark room, temperatures below 68 degrees, and no devices n bed. Limit caffeinated products 6 hours prior to bed, and limit fluids 2-4 hours prior to bed. Gentle night yoga, diffusing essential oils, and playing soft music can be relaxing. Coding Level of Care Code New Pt Level 4 (88934) Diagnoses Excessive daytime sleepiness G47.19 Gastroesophageal reflux disease without esophagitis K21.9 Esophagitis presence: without esophagitis Chronic fatigue R53.82 Sleep Questionnaire Difficulty falling asleep: No Difficulty staying asleep?: Yes Number of arousals: 5 Snoring: Yes Witnessed apneas: Yes Gasping arousals: Yes Nocturia: Yes GERD: Yes Vivid dreams: Yes Acting out dreams: Yes Abnormal behavior in sleep: Yes Abnormal movements in sleep: Yes Morning headaches: Yes Excessive daytime sleepiness: Yes Daytime naps: Yes Restless legs: Yes Hallucinations: No Sleep paralysis: No Drop attacks: No Sleep Study: Yes CPAP: Yes
--- OUTSIDE RECORDS SUMMARY | 2025-09-03 14:15 | XMS_ITS | Encounter Summary ---
Author Organization [facility] Address [address] [facility] [address] [place] [address] Phone Care Team Providers Care Packer Operator Automatic Name Role Phone Mal Yin MD Primary Care Provider Reason for Referral * Occupational Therapy (Routine) - Closed Specialty Diagnoses / Procedures Referred By Lito t Referred To Contact Occupational Therapy Diagnoses Personal history of transient ischemic attack (TIA), and cerebral infarction without residual deficits Mal Yin MD [address] [place] [address] Dr BOWIE [address] [place] [address] Phone: tel: fax: [address] [address] Phone: tel: Referral ID Status Reason Start Date Expiration Date Visits Re quested Visits Authorized [id number] Closed 09/01/2019 11/03/2019 3 3 Encounter Details Date Type Department Care Team (Latest Contact Info) Description 09/01/2019 Transcribe Orders [facility] [address] [place] [address] Mal Yin MD [address] [place] [address] Dr BOWIE [address] [place] [address] [place] [id number] Encounter for rehabilitation (Primary Dx) Social History [...] Diagnoses Orde r Schedule Ambulatory referral to [facility] Occupational Therapy Outpatient Referral Routine Encounter for rehabilitation Ordered: 09/01/2019 documented as of this encounter Visit Diagnoses Diagnosis Encounter for rehabilitation- Primary documented in this encounter Care Teams Packer Operator Automatic Relationship Specialty Start Date End Date Mal Yin MD [address] [place] [address] Dr BOWIE [address] [place] [id number] PCP - General Internal Medicine 08/20/19 documented as of this encounter Additional Source Comments The information contained in this document represents components of the legal health record. It is not the complete legal health record.[facility]
--- OUTSIDE RECORDS SUMMARY | 2025-09-03 14:15 | XMS_ITS | Encounter Summary ---
Author Organization [facility] Address [address] [address] Phone Care Team Providers Care Nursing Program Coordinator Name Role Phone Mal Yin MD Primary Care Provider Encounter Details Date Type Department Care Team ([facility] st Contact Info) Description 08/30/2022 Ancillary Orders [facility] Medical [facility] Orthopedics & Sports Medicine [address] [place] [id number] Ayaz Hanna MD [address] [place] [address] Orthopedics & Sports Medicine, [facility] [place] [address] [email or web address] Ankle pain Social History Tobacco Use Types [...] foot documented in this encounter Care Teams Nursing Program Coordinator Relationship Specialty Start Date End Date Mal Yin MD [address] [place] [address] Dr Scales, [place] [address] PCP - General Internal Medicine 08/20/19 documented as of this encounter Additional Source Comments The information contained in this document represents components of the legal health record. It is not the complete legal health record.[facility]
--- OUTSIDE RECORDS SUMMARY | 2025-09-03 14:16 | XMS_ITS | Clinical Summary ---
Author Organization [facility] Address [address] [address] Phone Care Team Providers Care Caregivers Non Medical Name Role Phone Mal Yin MD Primary [...] Active ferrous sulfate 325 mg (65 mg k[place] iron) tablet Take 1 tablet by mouth [...] 1978 HIV ONE-TIME SCREENING (18-65 YEARS) 1978 MAMMOGRAM 2000 COLOGUARD 2005 COLONOSCOPY 2005 COLORECTAL [...] 09/07/2019, 08/26/2018, Additional history exists COVID-19 VACCINE ( season) 2025 03/11/2021 OSTEOPOROSIS SCREENING INITIAL (ONE-TIME) [...] topic Medical Devices Not on file Insurance [facility] [facility] Care Teams Caregivers Non Medical Relationship Specialty Start Date End Date Mal Yin MD [address] [place] [address] [place] [address] PCP - General Internal Medicine 08/20/19 Additional Source Comments The information contained in this document represents components of the legal health record. It is not the complete legal health record.[facility]
== END 2025-09-03 14:04 | disposition home or self-care (01) ==
LOC: HO.HSMS 13:08
PROVIDERS: PCP Internal Medicine; Visit Provider Physician Assistant Medical
DX: G47.19 Other hypersomnia (principal); K21.9 Gastro-esophageal reflux disease without esophagitis; R53.82 Chronic fatigue, unspecified
CPT/HCPCS: 99204

== ENCOUNTER → 2025-09-03 13:07 | Outpatient (BNVA) | payer MEDICARE, MEDICAID, SELFPAY | PROVIDERS: PCP Internal Medicine; Visit Provider Physician Assistant Medical | DX: G47.33 Obstructive sleep apnea (adult) (pediatric) (principal); G47.19 Other hypersomnia; Z99.89 Dependence on other enabling machines and devices; K21.9 Gastro-esophageal reflux disease without esophagitis; R53.82 Chronic fatigue, unspecified; R35.1 Nocturia | CPT/HCPCS: 99202 ==

== ENCOUNTER 2025-09-22 14:30 | Outpatient (AMB) | payer MEDICARE, MEDICAID, SELFPAY ==
[2025-09-22 14:55] VITALS: BMI 27.8
--- NOTE | 2025-09-22 14:55 | A.OFFVIS_ITS ---
Vital Signs 09/22/25 14:55 Height 5 ft 4 in Weight 162 lb BMI 27.8 Intake Visit Reasons: Type 2 diabetes Intake Note: Delaney is a 65 year old female who presents today as a new patient for a diabetic foot exam. Patient reports her glucose is currently 172 and her last known A1c WAS 6.8%. She is currently diagnosed with neuropathy and she has a medical history of GERD, migraines, stomach hernia, And dizziness that comes and goes. Patient denies any previous history of wounds or amputations to her feet. She notes she has callouses to her right foot . She has tried diabetic ointment for heel cracking and pads and found slight relief for her symptoms Allergies GEL ELECTRODES Allergy (Mild, Uncoded 08/30/25 12:09) RASH HPI Comments Details: The patient is a 65-year-old female with a past medical history as seen below presenting for diabetic foot exam. She states her most recent blood glucose is 172 mg/dL and her last A1c was 6.8. Patient states she experiences pain to the plantar aspects of the feet due to calluses. Patient states she has been using diabetic gold marin cream with minimal relief. The patient experiences pain on the top of the right foot, particularly on the lateral aspect, without any history of injury. The pain is exacerbated by wearing tight shoes and palpation to the area. The patient has decreased sensation in the feet, which is a concern given her diabetic status. She denies any other pedal concerns. [facility] Medical History (Updated 09/25/25 @ 14:04 by Mala Perez DPM) Tinea unguium Xerosis cutis Fissures in skin of both feet Other specified epidermal thickening Pain in right foot Epigastric pain Abdominal pain Dysphagia Arthritis Anemia GI bleed Temporal headache Urinary incontinence Chronic constipation Fibromyalgia Primary osteoarthritis of knees, bilateral NAFLD (nonalcoholic fatty liver disease) Tubular adenoma of colon Essential hypertension Neuropathy Osteoarthritis DARIEL on CPAP Upper GI bleed Hepatomegaly History of alcohol abuse Stroke Depression Anxiety Hyperlipidemia LDL goal <70 Obesity with body mass index of 30.0-39.9 Type 2 diabetes mellitus with diabetic polyneuropathy Surgical History History of temporal artery biopsy Hx of esophagogastroduodenoscopy Hx of colonoscopy Family History Father Diabetes Mother Hypertension Daughter Breast cancer Ovarian cancer Social History Household Members: Family Household Members Other:: adult child and grandchild Are you a primary home care manager to a significant other at home: No Do you presently have visiting nurse or other home services: No Alcohol intake: former Patient Tobacco Use Status: Former Tobacco user Years Smoked: quit 10 years ago Current occupational status: disabled Current occupation: rt handed Review of Systems Const Details: - Musculoskeletal: Reports right foot pain. - Integumentary: Reports painful calluses on feet. - Neurological: Reports decreased sensation in feet. All systems reviewed & are unremarkable except as noted in HPI and below Physical Exam Vital Signs: BMI result Body Mass Index 27.8 Extrem Other: Bilateral lower extremity focused physical exam: Derm: Hyperkeratotic lesions noted to the plantar aspects of the feet bilaterally. Toenails noted to be slightly thickened and discolored but within normal length. No open lesions abrasions or wounds noted. No active bleeding, purulence, or drainage noted. No clinical signs of infection noted. Skin supple and turgor within normal limits. Vascular: DP/PT pulses palpable. Capillary refill time less than 3 seconds. Temperature gradient warm to warm. Pedal hair absent. Minimal varicosities noted. No edema noted. Neuro: Protective sensation is grossly diminished to light touch and monofilament testing. MSK: Pain on palpation to the plantar aspects of the feet in the areas of the hyperkeratotic lesions. Pain on palpation to the dorsal lateral aspect of the right foot in the area of the TMTJ. No crepitus or fluctuance noted. Range of motion of the forefoot, hindfoot, and ankle within normal limits. Class C findings noted. Office Procedures AMB Debridement/Avulsion Podia Details: Debrided hyperkeratotic lesions (6 per foot) bilaterally using a 15. Blade with out incidents. 95079-Jqsuvvivlao of Callus (5+) Procedure code (CPT) selection complete Diabetic Foot Exam G9226 - Diabetic Foot Exam Results Reviewed Results Reviewed: Laboratory Tests 07/02/25 08/23/25 08:00 14:24 Glucose (Clinic) 132 H Hemoglobin A1c % 6.8 H AST 21 ALT 9 Ordered right foot three-view weight-bearing x-rays to be performed prior to next visit. Assessment & Plan Assessment & Plan (1) Pain in right foot: Code(s): M79.671 - Pain in right foot Category: Medical (2) Other specified epidermal thickening: Code(s): L85.8 - Other specified epidermal thickening Category: Medical (3) Fissures in skin of both feet: Code(s): R23.4 - Changes in skin texture Category: Medical (4) Xerosis cutis: Code(s): L85.3 - Xerosis cutis Category: Medical (5) Type 2 diabetes mellitus with diabetic polyneuropathy: Code(s): E11.42 - Type 2 diabetes mellitus with diabetic polyneuropathy Category: Medical Qualifiers: Diabetes mellitus fci insulin use: with watcher automat long goods use Qualified Code(s): E11.42 - Type 2 diabetes mellitus with diabetic polyneuropathy; Z79.4 - intermediate project manager (current) use of insulin (6) Uncontrolled type 2 diabetes mellitus with hyperglycemia, with long-term current use of insulin: Code(s): E11.65 - Type 2 diabetes mellitus with hyperglycemia; Z79.4 - intermediate project manager (current) use of insulin Category: Medical (7) Callus of foot: Code(s): L84 - Corns and callosities Category: Medical (8) Tinea unguium: Code(s): B35.1 - Tinea unguium Category: Medical Plan Patient was informed and verbally consented to the use of an ambient scribe for clinic note documentation during this visit. Educated patient on diabetes in the affects on the lower extremities. I discussed with the patient the need for x-rays to confirm the cause of pain to the right foot. We talked about the benefits of shaving down the calluses to reduce pain and the importance of maintaining foot moisture with a prescribed lotion. I advised her to follow up in two weeks to review the x-ray results and manage her nails. We also discussed the importance of monitoring her foot sensation due to her diabetic status. - Debrided the hyperkeratotic lesions bilaterally. - Prescribed ammonium lactate to be applied daily to reduce rate of reoccurrence of hyperkeratotic lesion. - Ordered right foot x-rays to be performed prior to next visit. - Advised patient to wear supportive shoe gear and avoid barefoot walking. Continue wearing diabetic shoes and inserts. RTC in 2 weeks for follow-up of x-rays and routine diabetic nail care. Orders: Orders AMB Diabetic Foot Exam 09/22/25 E11.42 - Type 2 diabetes mellitus with diabetic polyneuropathy, E11.65 - Type 2 diabetes mellitus with hyperglycemia, Z79.4 - FPC (current) use of insulin XR foot RT min 3V 09/22/25 M79.671 - Pain in right foot AMB Debridement/Avulsion Podiatry 09/22/25 B35.1 - Tinea unguium, E11.42 - Type 2 diabetes mellitus with diabetic polyneuropathy, E11.65 - Type 2 diabetes mellitus with hyperglycemia, L84 - Corns and callosities, L85.3 - Xerosis cutis, L85.8 - Other specified epidermal thickening, M79.671 - Pain in right foot, R23.4 - Changes in skin texture, Z79.4 - intermediate project manager (current) use of insulin Medications: New ammonium lactate 12% 1 appl topical BID 385 grams 1RF L85.3 - Xerosis cutis, L85.8 - Other specified epidermal thickening, R23.4 - Changes in skin texture Coding Level of Care Code New Pt Level 4 (61105) Diagnoses Pain in right foot M79.671 Other specified epidermal thickening L85.8 Fissures in skin of both feet R23.4 Xerosis cutis L85.3 Type 2 diabetes mellitus with diabetic polyneuropathy, with long-term current use of insulin E11.42; Z79.4 Diabetes mellitus fci insulin use: with watcher automat long goods use Uncontrolled type 2 diabetes mellitus with hyperglycemia, with long-term current use of insulin E11.65; Z79.4 Callus of foot L84 Tinea unguium B35.1 CPT Codes Skin Debridement - CPT: 54181-Gnfwihkwrhr of Callus (5+) ([id number]) Diabetic Foot Exam - CPT: G9226 - Diabetic Foot Exam ([id number]) Time Spent (min) 53 Comment 6 mins for procedure
--- OUTSIDE RECORDS SUMMARY | 2025-09-23 02:58 | XMS_ITS | Clinical Summary ---
Author Organization [facility] Address [address] [address] Phone Care Team Providers Care Sap Basis Architect Name Role Phone Mal Yin MD [...] Active ferrous sulfate 325 mg (65 mg [place] iron) tablet Take 1 tablet by mouth [...] Insurance [facility] Andre Phillipe [facility] Care Teams Sap Basis Architect Relationship Specialty Start Date End Date Mal Yin MD [address] [place] [address] [place] [address] PCP - General Internal Medicine 08/20/19 Additional Source Comments The information contained in this document represents components of the legal health record. It is not the complete legal health record.[facility]
--- OUTSIDE RECORDS SUMMARY | 2025-09-23 02:58 | XMS_ITS | Encounter Summary ---
Author Organization [facility] Address [address] [facility] [address] [place] [address] Phone Care Team Providers Care Unbundler Name Role Phone Mal Yin MD Primary Care Provider Reason for Referral * Occupational Therapy (Routine) - Closed Specialty Diagnoses / Procedures Referred By Lito t Referred To Contact Occupational Therapy Diagnoses Personal history of transient ischemic attack (TIA), and cerebral infarction without residual deficits Mal Yin MD [address] [place] [address] Dr BOWIE [address] [place] [address] Phone: tel: fax: [address] [address] Phone: tel: Referral ID Status Reason Start Date Expiration Date Visits Re quested Visits Authorized [id number] Closed 09/01/2019 11/03/2019 3 3 Encounter Details Date Type Department Care Team (Latest Contact Info) Description 09/01/2019 Transcribe Orders [facility] [address] [place] [address] Mal Yin MD [address] [place] [address] [address] BOWIE [address] [place] [address] [place] [address] Encounter for rehabilitation (Primary Dx) Social History [...] Diagnoses Orde r Schedule Ambulatory referral to [facility] Occupational Therapy Outpatient Referral Routine Encounter for rehabilitation Ordered: 09/01/2019 documented as of this encounter Visit Diagnoses Diagnosis Encounter for rehabilitation- Primary documented in this encounter Care Teams Unbundler Relationship Specialty Start Date End Date Mal Yin MD [address] [place] [address] Dr BOWIE [address] [place] [address] PCP - General Internal Medicine 08/20/19 documented as of this encounter Additional Source Comments The information contained in this document represents components of the legal health record. It is not the complete legal health record.[facility]
--- OUTSIDE RECORDS SUMMARY | 2025-09-23 02:58 | XMS_ITS | Clinical Summary ---
Author Organization [facility] Address [address] [address] Care Team Providers Care Video Game Tester Name Role Phone Mal Yin MD [...] Insurance [employer] [employer] [employer] Care Teams Video Game Tester Relationship Specialty Start Date End Date Mal Yin MD [address] [place], [place] PCP - General Internal Medicine 12/20/21
--- OUTSIDE RECORDS SUMMARY | 2025-09-23 02:58 | XMS_ITS | Encounter Summary ---
Author Organization [facility] Address [address] [address] Phone Care Team Providers Care Film Processing Utility Worker Name Role Phone Mal Yin MD Primary Care Provider Encounter Details Date Type Department Care Team ([facility] st Contact Info) Description 08/30/2022 Ancillary Orders [facility] Orthopedics & Sports Medicine [address] [place] [address] Ayaz Hanna MD [address] [place] [address] Orthopedics & Sports Medicine, [facility] [place] [address] [email or web address] Ankle pain [...] foot documented in this encounter Care Teams Film Processing Utility Worker Relationship Specialty Start Date End Date Mal Yin MD [address] [place] [address] Dr Scales, FAROOQ [address] PCP - General Internal Medicine 08/20/19 documented as of this encounter Additional Source Comments The information contained in this document represents components of the legal health record. It is not the complete legal health record.[facility]
== END 2025-09-22 15:42 | disposition home or self-care (01) ==
LOC: HO.HPODS 14:31
PROVIDERS: PCP Internal Medicine; Visit Provider Student in an Organized Health Care Education/Training Program
DX: M79.671 Pain in right foot (principal); L85.8 Other specified epidermal thickening; R23.4 Changes in skin texture; L85.3 Xerosis cutis; E11.42 Type 2 diabetes mellitus with diabetic polyneuropathy; Z79.4 Long term (current) use of insulin; E11.65 Type 2 diabetes mellitus with hyperglycemia; L84 Corns and callosities; B35.1 Tinea unguium
CPT/HCPCS: 11057; 99204; G9226

== ENCOUNTER → 2025-09-22 14:30 | Outpatient (BNVA) | payer OTHER, SELFPAY | PROVIDERS: PCP Internal Medicine; Visit Provider Student in an Organized Health Care Education/Training Program | DX: L85.8 Other specified epidermal thickening (principal); R23.4 Changes in skin texture; L85.3 Xerosis cutis; E11.42 Type 2 diabetes mellitus with diabetic polyneuropathy; E11.65 Type 2 diabetes mellitus with hyperglycemia; Z79.4 Long term (current) use of insulin; L84 Corns and callosities; B35.1 Tinea unguium | CPT/HCPCS: 11057; 99202 ==

== ENCOUNTER → 2025-09-26 19:30 | Outpatient (REF) | payer OTHER, SELFPAY ==
--- OUTSIDE RECORDS SUMMARY | 2025-09-27 07:24 | XMS_ITS | Encounter Summary ---
Author Organization [facility] Address [address] [facility] [address] [place] [phone] Phone Care Team Providers Care Airbrush Artist Name Role Phone Mal Yin MD Primary Care Provider Reason for Referral * Occupational Therapy (Routine) - Closed Specialty Diagnoses / Procedures Referred By Lito t Referred To Contact Occupational Therapy Diagnoses Personal history of transient ischemic attack (TIA), and cerebral infarction without residual deficits Mal Yin MD [address] [place] [address] Dr BOWIE [address] [place] [address] Phone: tel: fax: [address] [address] Phone: tel: Referral ID Status Reason Start Date Expiration Date Visits Re quested Visits Authorized [id number] Closed 09/01/2019 11/03/2019 3 3 Encounter Details Date Type Department Care Team (Latest Contact Info) Description 09/01/2019 Transcribe Orders [facility] [address] [place] [address] Mal Yin MD [address] [place] [address] Dr BOWIE [address] [place] [address] [place] [address] Encounter for rehabilitation (Primary Dx) Social History [...] Diagnoses Orde r Schedule Ambulatory referral to [facility] Occupational Therapy Outpatient Referral Routine Encounter for rehabilitation Ordered: 09/01/2019 documented as of this encounter Visit Diagnoses Diagnosis Encounter for rehabilitation- Primary documented in this encounter Care Teams Airbrush Artist Relationship Specialty Start Date End Date Mal Yin MD [address] [place] [address] Dr BOWIE [address] [place] [id number] PCP - General Internal Medicine 08/20/19 documented as of this encounter Additional Source Comments The information contained in this document represents components of the legal health record. It is not the complete legal health record.[facility]
--- OUTSIDE RECORDS SUMMARY | 2025-09-27 07:24 | XMS_ITS | Encounter Summary ---
Author Organization [facility] Address [address] [address] Phone Care Team Providers Care Vehicle Fare Collector Name Role Phone Mal Yin MD Primary Care Provider Encounter Details Date Type Department Care Team ([facility] st Contact Info) Description 08/30/2022 Ancillary Orders [facility] Orthopedics & Sports Medicine [address] [place] [id number] Ayaz Hanna MD [address] [place] [address] Orthopedics & Sports Medicine, [facility] [place] [address] [email or web address] Ankle pain Social History Tobacco Use Types [...] foot documented in this encounter Care Teams Vehicle Fare Collector Relationship Specialty Start Date End Date Mal Yin MD [address] [place] [address] Dr Scales, FAROOQ [address] PCP - General Internal Medicine 08/20/19 documented as of this encounter Additional Source Comments The information contained in this document represents components of the legal health record. It is not the complete legal health record.[facility]
--- OUTSIDE RECORDS SUMMARY | 2025-09-27 07:25 | XMS_ITS | Clinical Summary ---
Author Organization [facility] Address [address] [address] Phone Care Team Providers Care Fur Designer Name Role Phone Mal Yin MD Primary [...] Active ferrous sulfate 325 mg (65 mg [place] iron) tablet Take 1 tablet by mouth [...] topic Medical Devices Not on file Insurance [facility] 51fanli [facility] [employer] Care Teams Fur Designer Relationship Specialty Start Date End Date Mal Yin MD [address] [place] [address] [place] [address] PCP - General Internal Medicine 08/20/19 Additional Source Comments The information contained in this document represents components of the legal health record. It is not the complete legal health record.[facility]
--- OUTSIDE RECORDS SUMMARY | 2025-09-27 07:25 | XMS_ITS | Clinical Summary ---
Author Organization [facility] Address [address] [address] Care Team Providers Care Director Of Resource Development Name Role Phone Mal Yin MD Primary [...] Insurance [place] Care Teams Director Of Resource Development Relationship Specialty Start Date End Date Mal Yin MD [address] [place], [place] PCP - General Internal Medicine 12/20/21
== END ==
LOC: HO.SL 19:30
PROVIDERS: PCP Internal Medicine; Visit Provider Physician Assistant Medical
DX: G47.33 Obstructive sleep apnea (adult) (pediatric) (principal); K21.9 Gastro-esophageal reflux disease without esophagitis
CPT/HCPCS: 95810

== ENCOUNTER → 2025-09-26 20:30 | Outpatient (BNV) | payer OTHER, SELFPAY | PROVIDERS: PCP Internal Medicine; Visit Provider Psychiatry & Neurology Neurology | DX: G47.33 Obstructive sleep apnea (adult) (pediatric) (principal) | CPT/HCPCS: 95810 ==

== ENCOUNTER 2025-09-27 09:37 | Outpatient (REF) | payer OTHER, SELFPAY ==
[2025-09-27 11:47] LABS: Hematocrit 37.3 % (37.0-47.0); Hemoglobin 11.9 g/dl (12.0-16.0); Mean Corpuscular HGB Conc 31.9 g/dl (31.0-35.0); Mean Corpuscular Hemoglobin 31.8 pg (27.0-33.0); Mean Corpuscular Volume 99.7 fL (80.0-98.0); NRBC Abs Auto 0.000 X10*3/uL (0.0-0.012); NRBC Pct Auto 0.0 /100WBC (0.0-0.2); Platelet Count 185 X10*3/uL (160-400); Red Blood Count 3.74 X10*6/uL (4.20-5.50); White Blood Count 7.9 X10*3/uL (4.8-10.8)
[2025-09-27 11:49] LABS: Appearance Urine Clear; Glucose Urine UA >=1000 mg/dL (Negative); PH 6.5 (5.0-9.0); Specific Gravity - Urine 1.025 (1.005-1.025); UMIC TRIGGER UA YES
[2025-09-27 13:39] LABS: Folate 11.5 ng/mL (> or = 4.0); Vitamin B12 242 pg/mL (200-900)
[2025-09-27 15:06] LABS: Alanine Aminotransferase 8 U/L (0-31); Albumin Level 4.4 g/dL (3.5-5.0); Alkaline Phosphatase 85 U/L (39-117); Anion Gap 11 (12-20); Aspartate Amino Transferase 24 U/L (5-31); Blood Urea Nitrogen 15 mg/dL (9-16); Calcium 9.5 mg/dL (8.4-10.2); Carbon Dioxide 29 mmol/L (22-29); Chloride 105 mmol/L (96-108); Estimated Glomerular Filt Rate 58; Ferritin 30 ng/mL (10-250); Iron 65 mcg/dL (30-160); Magnesium 1.7 mg/dL (1.6-2.6); Percent Iron Saturation 29 % (15-50); Potassium 3.8 mmol/L (3.3-5.1); Sodium 141 mmol/L (135-145); Total Iron Binding Capacity 221 mcg/dL (228-428); Total Protein 7.3 g/dL (6.5-8.0); Unsaturated Iron Binding 156 ug/dL
== END 2025-09-27 09:38 | disposition home or self-care (01) ==
LOC: HO.LAB 09:37
PROVIDERS: Absent Provider Physician Assistant Medical; PCP Internal Medicine; Visit Provider Internal Medicine
DX: R53.82 Chronic fatigue, unspecified (principal); M17.0 Bilateral primary osteoarthritis of knee; K21.9 Gastro-esophageal reflux disease without esophagitis; E11.9 Type 2 diabetes mellitus without complications; L84 Corns and callosities; N39.41 Urge incontinence; M25.811 Other specified joint disorders, right shoulder; E11.42 Type 2 diabetes mellitus with diabetic polyneuropathy; M79.7 Fibromyalgia; I10 Essential (primary) hypertension; E78.5 Hyperlipidemia, unspecified; D50.9 Iron deficiency anemia, unspecified; G43.909 Migraine, unspecified, not intractable, without status migrainosus; Z79.4 Long term (current) use of insulin
CPT/HCPCS: 36415; 80053; 81001; 82306; 82607; 82728; 82746; 83036; 83090; 83540; 83735; 83921; 84443; 85027; 96127; 99202

== ENCOUNTER 2025-09-27 09:37 | Outpatient (AMB) | payer OTHER, SELFPAY ==
--- NOTE | 2025-09-27 10:11 | A.OFFPC_ITS ---
Vital Signs 09/27/25 10:15 Height 5 ft 0.04 in Weight 172 lb BMI 33.5 BP 138/64 Blood Pressure Location Rt brachial Position Sitting Pulse 84 Pulse Source Pulse Oximeter Temp 97.3 F Temp Source Temporal Artery Scan Pulse Oximetry (%) 98 Oxygen Delivery Method Room Air Intake Visit Reasons: REVENUE INSPECTOR-Feet issue Intake Note: Patient is a new patient here to establish care for DM, Chronic fatigue, Carpal tunnel syndrome,, Arthritis, Bursitis, Sleep apnea, Bladder control loss, Vit D deficincy Anemia, OA, DM Neuropathy, Fibromyalgia, HTN, HLD, NAFLD . Transferring care from Dr Saba ([facility] [place]). Medical records have been requested and have received. Product Support Analyst Required: No Photo Technologist: Present Accompanied by: Daughter Allergies GEL ELECTRODES Allergy (Mild, Uncoded 09/27/25 10:15) RASH Medication List - Last Reconciled 09/27/25 by Anna Reid MD acetaminophen (Tylenol Extra Strength) 500 mg PO Q6H PRN alcohol swabs pad topical ammonium lactate 12% 1 appl topical BID aspirin 81 mg PO DAILY atenolol 50 mg PO DAILY atorvastatin 40 mg PO DAILY@1700 blood sugar diagnostic (FreeStyle Lite Strips) DIRECTED 4 TIMES A DAY blood-glucose sensor (FreeStyle Marty 3 Plus Sensor device) Use daily As directed to monitor glucose blood-glucose,vp of customer experience strategy,cont (FreeStyle Marty 3 [place]) Use daily As directed to monitor blood glucose cholecalciferol (vitamin D3) 50 mcg PO DAILY docusate sodium (Colace) Take one tablet daily empagliflozin (Jardiance) 10 mg PO QAM famotidine 40 mg PO BEDTIME ferrous sulfate 325 mg PO DAILY insulin glargine U-300 conc (Toujeo Max U-300 SoloStar) 45 units subcut BEDTIME insulin lispro (Admelog SoloStar U-100 Insulin lispro) 15 u for small meals, 15 u for large, + 2 units for bg>200, + 3 units for BG >250, + 4 units bg >300mg/dl. Of note..for very light meal use only 6 units. subcut 3 times a day; 30 days Knee brace As directed lancets (FreeStyle Lancets) As directed lisinopril 40 mg PO DAILY metformin 500 mg PO BID 90 days pantoprazole (Protonix) 40 mg PO DAILY pen needle, diabetic Use QID As directed polyethylene glycol 3350 (Gavilax) 17 grams PO DAILY semaglutide (Ozempic) 2 mg (0.75 mL) subcut QWEEK spironolacton-hydrochlorothiaz 25-25 mg 1 tab PO DAILY sumatriptan succinate 50 mg PO DAILY PRN tramadol 50 mg PO TID PRN Tobacco use date assessed: 09/27/25 Fall risk assessment: No Falls in past year Last assessed Fall Risk: 09/27/25 Dental Screening Dental Screen Date: 09/27/25 Did you have a dental visit in the last 12 months?: Yes Did you have a dental problem in the last 6 months where you did not have access to dental care?: No Was dental information given to patient?: Patient has dentist (Dentures) HPI HPI Comments History of Present Illness Details 65 yo F with PMH of HTN, migraines, HLD, GERD, DM, Obesity, OA, urinary incontinence, carpal tunnel, vit D deficiency, and fibromyalgia [facility]. The patient reports urinary incontinence and is requesting new prescriptions for briefs, bed pads, and gloves. Due to mobility issues, the patient is also requesting a prescription for an electric wheelchair as walking outside is difficult even with a walker. She has bilateral knee ostheoarthritis for which she follows with pain management for joint injections. In clinic the patient had The patient has a history of osteoarthritis of the knees and has previously undergone cortisone shots, gel shots, and physical therapy for shoulders, knees, and ankles. The patient is followed by orthopedics and pain management, with upcoming follow-up scheduled. MRI shoulder is also pending. The patient has a history of painful acid reflux and is scheduled for an EGD next month on December 08. The patient also reports abdominal pain, for which an ultrasound is scheduled for November 03, and has a GI follow-up on November 18. The patient manages diabetes under the care of an information developer with medications including Ozempic, insulin, and Jardiance, and has a recent A1c of 6.6. The patient has an ophthalmology appointment scheduled for next year and follows with podiatry for diabetic foot. The patient recently completed a sleep study this morning for evaluation by a sleep clinic and will follow up with neurology. Other specialist care includes podiatry for a foot callus, with a follow-up on 10/07, and an [facility] appointment scheduled for next year. The patient received the flu vaccine on July 15. [facility] Medical History (Updated 09/27/25 @ 11:27 by Anna Reid MD) Tinea unguium Xerosis cutis Fissures in skin of both feet Other specified epidermal thickening Pain in right foot Epigastric pain Abdominal pain Dysphagia Arthritis Anemia GI bleed Temporal headache Urinary incontinence Chronic constipation Fibromyalgia Primary osteoarthritis of knees, bilateral NAFLD (nonalcoholic fatty liver disease) Tubular adenoma of colon Essential hypertension Neuropathy Osteoarthritis DARIEL on CPAP Upper GI bleed Hepatomegaly History of alcohol abuse Stroke Depression Anxiety Hyperlipidemia LDL goal <70 Obesity with body mass index of 30.0-39.9 Type 2 diabetes mellitus with diabetic polyneuropathy Surgical History History of temporal artery biopsy Hx of esophagogastroduodenoscopy Hx of colonoscopy Family History (Updated 09/27/25 @ 10:33 by RADHA Balderrama) Father Diabetes Mother Hypertension Daughter Breast cancer Ovarian cancer Social History Household Members: Family Household Members Other:: adult child and grandchild Housing: Apartment Are you a primary acute care occupational therapist to a significant other at home: No Do you presently have visiting nurse or other home services: No Alcohol intake: former Patient Tobacco Use Status: Former Tobacco user Years Smoked: quit 10 years ago e-Cigarette/Vaping Use: Never Used Second Hand Smoke Exposure: Yes service: No Current occupational status: disabled Current occupation: rt handed Cognitive needs: Yes (Walker, wheelchair) Hearing needs: No Vision needs: Yes (Glasses) Questionnaire PHQ-9 Over the last 2 weeks, how often have you been bothered by any of the following problems? 1. Little interest or pleasure in doing things: not at all 2. Feeling down, depressed, or hopeless: not at all 3. Trouble falling or staying asleep, or sleeping too much: several days 4. Feeling tired or having little energy: not at all 5. Poor appetite or overeating: not at all 6. Feeling bad about yourself - or that you are a failure or have let yourself or your family down: not at all 7. Trouble concentrating on things, such as reading the newspaper or watching television: not at all 8. Moving or speaking so slowly that other people could have noticed. Or the opposite - being so fidgety or restless that you have been moving around a lot more than usual: not at all 9. Thoughts that you would be better off or of hurting yourself in some way: not at all Total score: 1 Depression Screening Interpretation: Positive Depression Screening Done: Yes Source: Developed by Drs. Dudley Combs, Leslie Jenkins, Meño Espinoza and colleagues, with an educational danielle from [employer]. Thrive Questionnaire Date Thrive assessed: 09/27/25 I am a: Patient What is your living situation today?: I have a steady place to live Within the past 12 months, did the food you bought not last and you didn't have the money to get more?: Never true Within the past 12 months, did you worry whether your food would run out before you got money to buy more?: Never true Do you have trouble paying for medicines?: No Do you have trouble getting transportation to medical appointments?: Yes Do you have trouble paying your heating and electricity bill?: No Do you have trouble taking care of your child, family member or friend?: No Do you have trouble with day-to-day activities such as bathing, preparing meals, shopping, managing finances, etc.?: Yes Are you currently unemployed and looking for a job?: Yes Are you interested in more education?: No Please select the resources that you would like help with: None Currently or been in a relationship where the following occur: No concerns repo rted THRIVE Score: 1 AUDIT C Alcohol Use Questionnaire (AUDIT-C) 1. How often do you have a drink containing alcohol?: Never Total Score: 0 JYOTSNA-7 AMB Questionnaire JYOTSNA-7 Date JYOTSNA - 7 assessed: 09/27/25 Feeling nervous, anxious, or on edge: 1 = Several days Not being able to stop or control worryin = Not at all Worrying too much about different things: 1 = Several days Trouble relaxin = Several days Being so restless that it is hard to sit still: 1 = Several days Becoming easily annoyed or irritable: 1 = Several days Feeling afraid as if something awful might happen: 1 = Several days Total JYOTSNA-7 score (0-4 normal; 5-9 mild; 10-14 moderate; 15-21 severe): 6 Source: Developed by Drs. Dudley Combs, Leslie Jenkins, Meño Espinoza and colleagues, with an educational danielle from [employer]. Review of Systems Const Details: As per HPI. Physical exam (Primary Care) Vital Signs: Last Vital Signs Temp 97.3 F 09/27/25 10:15 Pulse 84 09/27/25 10:15 BP 138/64 09/27/25 10:15 Pulse Ox 98 09/27/25 10:15 Oxygen Delivery Method Room Air 09/27/25 10:15 BMI result Body Mass Index 33.5 Tobacco/Smoking Status: Tobacco use Status Tobacco use date assessed 09/27/25 09/27/25 10:36 Patient Tobacco Use Status Former Tobacco user 09/27/25 10:36 e-Cigarette/Vaping Use Never Used 09/27/25 10:36 PHQ-9: PHQ-9 Score PHQ-9: Total score 1 09/27/25 10:36 Depression Screening Interpretation: Positive Thrive Assessment: Date of Thrive Assessment Date Thrive assessed 09/27/25 09/27/25 10:36 Currently or been in a relationship where the following occur: No concerns reported Const Other: Pertinent findings are in BOLD GENERAL APPEARANCE NAD, activity normal for age, well developed/ well nourished, no cyanosis, pallor, or diaphoresis. EYES lids/conjunctiva normal. EARS/NOSE/THROAT Mucous membranes moist, nares normal, lips/teeth normal uvula midline without oral pharyngeal erythema, exudate or swelling TMs normal bilaterally. No lymphangitis/lymphedema. HEAD/NECK normocephalic atraumatic, no facial trauma, neck is supple. RESPIRATORY respiratory effort normal, speaks in full sentences, no tripod position, no accessory muscle use. Lungs clear to auscultation without rhonchi, wheezes, rales CARDIAC Regular rate and rhythm, no edema. ABDOMINAL Soft, ND/NT. No evidence of fluid wave. No pulsatile masses on exam, rebound tenderness, Reed sign or pain over Mcburney's point. MUSCLES/EXTREMITIES No abnormal range of motion, no swelling. Limited gait due to bilateral knee OA. Wearing brace bilaterally on knees. Shoulder ROM limited due to pain. SKIN Warm, pink and dry. No rashes, dermatoses, petechiae or lesions. NEUROLOGICAL Speech is clear and appropriate. Normal level of consciousness. Gait and coordination are normal. 5/5 strength in all extremities. PSYCH Normal mood and affect. Judgement/competence is appropriate Results AMB Hemoglobin A1c AMB Hemoglobin A1c 6.6 % Last Edit by RADHA Balderrama on 09/27/25 10:39 Results Reviewed Results Reviewed: Laboratory Last Values Hgb A1c (Clinic) 6.6 % (4.0-6.0) H 09/27/25 10:11 Coding Level of Care Code New Pt Level 4 (91681) Diagnoses Primary osteoarthritis of knees, bilateral M17.0 Urge incontinence of urine N39.41 Urinary Incontinence type: urge incontinence Gastroesophageal reflux disease without esophagitis K21.9 Esophagitis presence: without esophagitis Impingement of right shoulder M25.811 Type 2 diabetes mellitus with diabetic polyneuropathy, with long-term current use of insulin E11.42; Z79.4 Diabetes mellitus custodial insulin use: with intermediate project manager use Fibromyalgia M79.7 Callus of foot L84 Chronic fatigue R53.82 Essential hypertension I10 Hyperlipidemia LDL goal <70 E78.5 Iron deficiency anemia, unspecified iron deficiency anemia type D50.9 Anemia type: iron deficiency Iron deficiency anemia type: unspecified iron deficiency Migraine without status migrainosus, not intractable, unspecified migraine type G43.909 Migraine type: unspecified Status migrainosus presence: without status migrainosus Intractability: not intractable Time Spent (min) 45 Assessment & Plan Assessment & Plan (1) Primary osteoarthritis of knees, bilateral: Comment: bilateral knee pain Code(s): M17.0 - Bilateral primary osteoarthritis of knee Category: Medical Plan: - A prescription for an electric wheelchair will be provided. - A referral for a physical therapy assessment will be placed, which is required for the electric wheelchair order. - Follows with pain management for joint injection. (2) Urinary incontinence: Code(s): R32 - Unspecified urinary incontinence Category: Medical Qualifiers: Urinary Incontinence type: urge incontinence Qualified Code(s): N39.41 - Urge incontinence Plan: - A urinalysis will be ordered, as it is required for incontinence supplies. - Prescriptions for briefs, bed pads, and gloves will be sent to the requested fax number. (3) Acid reflux: Comment: EGD 06/10/2020: normal upper endoscopy findings. No evidence of esophagitis or suggestion of any Cabrera's disease. Without hiatal hernia. Code(s): K21.9 - Gastro-esophageal reflux disease without esophagitis Category: Medical Qualifiers: Esophagitis presence: without esophagitis Qualified Code(s): K21.9 - Gastro-esophageal reflux disease without esophagitis Plan: - The patient will continue with current medications, including Omeprazole and Famotidine. - Advised to attempt dietary modification by eliminating dairy products for one week to assess for symptom improvement. - The patient to proceed with the scheduled EGD on December 08 and follow up with GI. - Continue excellent care by GI department. (4) Impingement of right shoulder: Code(s): M25.811 - Other specified joint disorders, right shoulder Category: Medical Plan: Follows with ortho and pain management. MRI scheduled. Continue following up Ortho and pain management reccs. (5) Type 2 diabetes mellitus with diabetic polyneuropathy: Code(s): E11.42 - Type 2 diabetes mellitus with diabetic polyneuropathy Category: Medical Qualifiers: Diabetes mellitus custodial insulin use: with custodial use Qualified Code(s): E11.42 - Type 2 diabetes mellitus with diabetic polyneuropathy; Z79.4 - termite control representative (current) use of insulin Plan: - The patient will continue management under Endocrinology, including current medications Ozempic, insulin, and Jardiance. - The patient will maintain annual follow-up with their guard manager and podiatry. (6) Fibromyalgia: Code(s): M79.7 - Fibromyalgia Category: Medical Plan: Continue care by neurology. Advised on lifestyle modifications to identify diet triggers. (7) Callus of foot: Code(s): L84 - Corns and callosities Category: Medical Plan: Follows with Podiatry. Xray foot ordered. Pending results and follow up with podiatry scheduled. (8) Chronic fatigue: Code(s): R53.82 - Chronic fatigue, unspecified Category: Medical Plan: - Awaiting results from the recently completed sleep study. - The patient to continue follow-up with Neurology. (9) Essential hypertension: Code(s): I10 - Essential (primary) hypertension Category: Medical Plan: Refilled Atenalol, Lisinopril, Spironolactone- HCTZ. (10) Hyperlipidemia LDL goal <70: Code(s): E78.5 - Hyperlipidemia, unspecified Category: Medical Plan: Continue Atorvastatin. (11) Anemia: Code(s): D64.9 - Anemia, unspecified Category: Medical Qualifiers: Anemia type: iron deficiency Iron deficiency anemia type: unspecified iron deficiency Qualified Code(s): D50.9 - Iron deficiency anemia, unspecified Plan: Refilled Ferrous Sulfate prescription. (12) Migraine: Code(s): G43.909 - Migraine, unspecified, not intractable, without status migrainosus Category: Medical Qualifiers: Migraine type: unspecified Status migrainosus presence: without status migrainosus Intractability: not intractable Qualified Code(s): G43.909 - Migraine, unspecified, not intractable, without status migrainosus Plan: Sumatriptan and Tramadol prescribed by Dr. Davidson with Neurology. Continue Neurology follow-up. Plan I introduced myself as the patient's new primary care physician and consented the patient for using an ambient scribe. We reviewed the patient's numerous specialist appointments and medications. I addressed the patient's requests for prescriptions for incontinence supplies and an electric wheelchair. I explained that a urinalysis would be required for the incontinence supplies and that a physical therapy assessment is necessary before ordering the wheelchair. I confirmed I would place the necessary orders and referrals. We discussed the patient's acid reflux in detail, and I proposed that food- related inflammation might be a contributing factor, beyond typical irritants. I suggested trying a one-week elimination of dairy products as a trial to see if symptoms improve, clarifying that this is a complementary approach and not a replacement for medication. I advised the patient to complete the urinalysis and suggested checking with the lab to see if it could be done at the same time as other pending lab work from other providers. We agreed to a follow-up appointment in five months for an annual physical to ensure all follow-ups have been completed and to review progress. Orders: Orders PT Evaluation and Treatment Today Anna Reid MD M17.0 - Bilateral primary osteoarthritis of knee UA and rflx microscopic Today Anna Reid MD R32 - Unspecified urinary incontinence AMB Hemoglobin A1c Today Anna Reid MD E11.42 - Type 2 diabetes mellitus with diabetic polyneuropathy, Z79.4 - termite control representative (current) use of insulin Medications: New [Bed pad] As directed 30 ea 11RF Anna Reid MD [Briefs] As directed 30 ea 11RF Anna Reid MD [Electric Wheelchair] As directed 1 ea 0RF Anna Reid MD aspirin 81 mg PO DAILY 90 tabs 3RF Anna Reid MD atenolol 50 mg PO DAILY 90 tabs 3RF Anna Reid MD ferrous sulfate 325 mg PO DAILY 90 tabs 3RF Anna Reid MD spironolacton-hydrochlorothiaz 25-25 mg 1 tab PO DAILY 90 tabs 3RF Anna Reid MD [Gloves] As directed 30 ea 11RF Anna Reid MD ascorbic acid (vitamin C) 250 mg PO BID 90 tabs 3RF Anna Reid MD Changed From insulin glargine U-300 conc (Toujeo Max U-300 SoloStar) 50 units (0.1667 mL) subcut BEDTIME 6 mL 4RF To insulin glargine U-300 conc (Toujeo Max U-300 SoloStar) 45 units subcut BEDTIME Darcy Mason PA-C Refilled lisinopril 40 mg PO DAILY 30 tabs 1RF Anna Ried MD
[2025-09-27 10:15] VITALS: BP 138/64; PULSE 84; TEMP 36.3; O2SAT 98; BMI 33.5
== END 2025-09-27 11:36 | disposition home or self-care (01) ==
LOC: HO.HMCH 09:38
PROVIDERS: PCP Internal Medicine; Visit Provider Internal Medicine
DX: E11.42 Type 2 diabetes mellitus with diabetic polyneuropathy (principal); Z79.4 Long term (current) use of insulin; M17.0 Bilateral primary osteoarthritis of knee; N39.41 Urge incontinence; K21.9 Gastro-esophageal reflux disease without esophagitis; M25.811 Other specified joint disorders, right shoulder; M79.7 Fibromyalgia; L84 Corns and callosities; R53.82 Chronic fatigue, unspecified; I10 Essential (primary) hypertension; E78.5 Hyperlipidemia, unspecified; D50.9 Iron deficiency anemia, unspecified; G43.909 Migraine, unspecified, not intractable, without status migrainosus

== ENCOUNTER 2025-10-01 09:11 | Outpatient (REF) | payer OTHER, SELFPAY ==
--- NOTE | ~2025-10-01 | XR_ITS ---
EXAMINATION: XR FOOT, RIGHT CLINICAL INFORMATION: M79.671 - Pain in right foot COMPARISON: 03/29/2016. TECHNIQUE: AP, lateral, and oblique weightbearing views of the right foot. FINDINGS: No fracture, dislocation, or suspicious bone lesion. Normal bone mineralization. Normal alignment. Mild changes of osteoarthritis are present in the first MTP joint with mild bunion formation involving the median eminence of the first metatarsal head. Normal plantar arch. Moderate sized plantar and small dorsal calcaneal spurs present. Soft tissues appear normal. XR/XR foot RT min 3V IMPRESSION: 1. No acute bony or soft tissue abnormalities. 2. Mild degenerative arthritis involving the first MTP joint with mild bunion formation. 3. Moderate sized plantar and small dorsal calcaneal spurs. Electronically signed by: Filippo Givens MD 10/01/2025 09:32 AM ANG
--- OUTSIDE RECORDS SUMMARY | 2025-10-01 09:14 | XMS_ITS | Clinical Summary ---
Author Organization [facility] Address [address] [address] Phone Care Team Providers Care Certified Flex Endoscope Reprocessor Name Role Phone Mal Yin MD Primary [...] Active ferrous sulfate 325 mg (65 mg [place] iron) tablet Take 1 tablet by mouth [...] topic Medical Devices Not on file Insurance [facility] [employer] [facility] Care Teams Certified Flex Endoscope Reprocessor Relationship Specialty Start Date End Date Mal Yin MD [address] [place] [address] [place] [address] PCP - General Internal Medicine 08/20/19 Additional Source Comments The information contained in this document represents components of the legal health record. It is not the complete legal health record.[facility]
--- OUTSIDE RECORDS SUMMARY | 2025-10-01 09:14 | XMS_ITS | Clinical Summary ---
Author Organization [facility] Facility Address [address] [address] Care Team Providers Care Shopper'S Aide Name Role Phone Mal Yin MD Primary [...] Insurance [place] [employer] [place] [employer] Care Teams Shopper'S Aide Relationship Specialty Start Date End Date Mal Yin MD [id number] [place], [place] PCP - General Internal Medicine 12/20/21
--- OUTSIDE RECORDS SUMMARY | 2025-10-01 09:14 | XMS_ITS | Encounter Summary ---
Author Organization [facility] Address [address] [address] Phone Care Team Providers Care Event Sales Assistant Name Role Phone Mal Yin MD Primary Care Provider Encounter Details Date Type Department Care Team ([facility] st Contact Info) Description 08/30/2022 Ancillary Orders [facility] Orthopedics & Sports Medicine [address] [place] [phone] Ayaz Hanna MD [address] [place] [address] Orthopedics & Sports Medicine, [facility] [place] [address] [email or web address] Ankle pain Social History Tobacco Use Types [...] foot documented in this encounter Care Teams Event Sales Assistant Relationship Specialty Start Date End Date Mal Yin MD [address] [place] [address] Dr Scales, [place] [address] PCP - General Internal Medicine 08/20/19 documented as of this encounter Additional Source Comments The information contained in this document represents components of the legal health record. It is not the complete legal health record.[facility]
--- OUTSIDE RECORDS SUMMARY | 2025-10-01 09:14 | XMS_ITS | Encounter Summary ---
Author Organization [facility] Address [address] [facility] [address] [place] [address] Phone Care Team Providers Care Service Dispatcher Name Role Phone Mal Yin MD Primary Care Provider Reason for Referral * Occupational Therapy (Routine) - Closed Specialty Diagnoses / Procedures Referred By Lito t Referred To Contact Occupational Therapy Diagnoses Personal history of transient ischemic attack (TIA), and cerebral infarction without residual deficits Mal Yin MD [address] [place] [address] Dr BOWIE [address] [place] [address] Phone: tel: fax: [address] [address] Phone: tel: Referral ID Status Reason Start Date Expiration Date Visits Re quested Visits Authorized [id number] Closed 09/01/2019 11/03/2019 3 3 Encounter Details Date Type Department Care Team (Latest Contact Info) Description 09/01/2019 Transcribe Orders [facility] [address] [place] [address] Mal Yin MD [address] [place] [address] Dr BOWIE [address] [place] [address] [place] [id number] Encounter for rehabilitation (Primary Dx) Social History [...] Diagnoses Orde r Schedule Ambulatory referral to [facility] Occupational Therapy Outpatient Referral Routine Encounter for rehabilitation Ordered: 09/01/2019 documented as of this encounter Visit Diagnoses Diagnosis Encounter for rehabilitation- Primary documented in this encounter Care Teams Service Dispatcher Relationship Specialty Start Date End Date Mal Yin MD [address] [place] [address] Dr BOWIE [address] [place] [id number] PCP - General Internal Medicine 08/20/19 documented as of this encounter Additional Source Comments The information contained in this document represents components of the legal health record. It is not the complete legal health record.[facility]
== END 2025-10-01 09:12 | disposition home or self-care (01) ==
LOC: HO.XRAY 09:11
PROVIDERS: Visit Provider Student in an Organized Health Care Education/Training Program
DX: M79.671 Pain in right foot (principal)
CPT/HCPCS: 73630

== ENCOUNTER → 2025-10-01 09:17 | Outpatient (BNV) | payer OTHER, SELFPAY | PROVIDERS: Visit Provider Radiology Diagnostic Radiology | DX: M19.071 Primary osteoarthritis, right ankle and foot (principal); M77.31 Calcaneal spur, right foot | CPT/HCPCS: 73630 ==

== ENCOUNTER 2025-10-07 13:01 | Outpatient (AMB) | payer OTHER, SELFPAY ==
--- NOTE | 2025-10-07 13:10 | MHC.OFFVIS ---
Vital Signs 10/07/25 13:18 Height 5 ft Weight 172 lb BMI 33.6 Intake Visit Reasons: f/u xrays & diabetic nail care Intake Note: cameron is a 65 year old female who presents today for follow up on her X-rays and diabetic nail care. Patient reports she is still having pain on her right hind foot and now she is experiencing pain on the plantar aspect of her left foot. She states her glucose is currently at 132. Allergies GEL ELECTRODES Allergy (Mild, Uncoded 09/27/25 10:15) RASH HPI Comments Details: The patient is a 65 year old female presenting for follow-up for routine diabetic nail care. Patient continues to experience pain to the plantar aspect of the right foot and now states she is experiencing pain to the left. Patient obtained x-rays. Patient states her most recent blood glucose level is 132 mg/dL. She denies any new pedal injuries. She denies any other pedal concerns. [facility] Medical History (Updated 10/10/25 @ 12:31 by Mala Perez DPM) Varicose veins of bilateral lower extremities with other complications Insertional tendinopathy of right Achilles tendon Plantar fasciitis, right Calcaneal spur Arthritis of both feet Bilateral foot pain Tinea unguium Xerosis cutis Fissures in skin of both feet Other specified epidermal thickening Pain in right foot Epigastric pain Abdominal pain Dysphagia Arthritis Anemia GI bleed Temporal headache Urinary incontinence Chronic constipation Fibromyalgia Primary osteoarthritis of knees, bilateral NAFLD (nonalcoholic fatty liver disease) Tubular adenoma of colon Essential hypertension Neuropathy Osteoarthritis DARIEL on CPAP Upper GI bleed Hepatomegaly History of alcohol abuse Stroke Depression Anxiety Hyperlipidemia LDL goal <70 Obesity with body mass index of 30.0-39.9 Type 2 diabetes mellitus with diabetic polyneuropathy Surgical History History of temporal artery biopsy Hx of esophagogastroduodenoscopy Hx of colonoscopy Family History (Updated 09/27/25 @ 10:33 by RADHA Balderrama) Father Diabetes Mother Hypertension Daughter Breast cancer Ovarian cancer Social History Household Members: Family Household Members Other:: adult child and grandchild Housing: Apartment Are you a primary caretaker grounds to a significant other at home: No Do you presently have visiting nurse or other home services: No Alcohol intake: former Patient Tobacco Use Status: Former Tobacco user Years Smoked: quit 10 years ago e-Cigarette/Vaping Use: Never Used Second Hand Smoke Exposure: Yes service: No Current occupational status: disabled Current occupation: rt handed Cognitive needs: Yes (Walker, wheelchair) Hearing needs: No Vision needs: Yes (Glasses) Review of Systems Const Details: - Musculoskeletal: Reports bilateral foot pain. - Neurological: Reports decreased sensation in feet. All systems reviewed & are unremarkable except as noted in HPI and below Physical Exam Vital Signs: BMI result Body Mass Index 33.6 Extrem Other: Bilateral lower extremity focused physical exam: Derm: No Hyperkeratotic lesions noted to the plantar aspects of the feet bilaterally. Toenails noted to be slightly thickened, elongated, and discolored. No open lesions abrasions or wounds noted. No active bleeding, purulence, or drainage noted. No clinical signs of infection noted. Skin supple and turgor within normal limits. Vascular: DP/PT pulses palpable. Capillary refill time less than 3 seconds. Temperature gradient warm to warm. Pedal hair absent. Minimal varicosities noted. No edema noted. Neuro: Protective sensation is grossly diminished to light touch and monofilament testing. MSK: Pain on palpation to bilateral heels in the area of the medial calcaneal tubercle and plantar arches. Negative windlass mechanism. Pain on palpation to the dorsal lateral aspect of the right foot in the area of the TMTJ. No crepitus or fluctuance noted. Range of motion of the forefoot, hindfoot, and ankle within normal limits. Class C findings noted. Office Procedures AMB Debridement/Avulsion Podia Details: Debrided toenails x10 using a sterile nail Nipper and sterile Dremel without incidents. 23373-Erdscyxuoby of Nail 6+ Procedure code (CPT) selection complete Results Reviewed Results Reviewed: Laboratory Tests 09/27/25 11:19 WBC 7.9 Estimat Average Glucose 160 Hemoglobin A1c % 7.2 H AST 24 ALT 8 Podiatry read of right foot x-rays (10/01/2025): Calcaneal spurs noted posteriorly and plantarly. Mild joint space narrowing noted to the 1st MPJ with mild hallux valgus. Mild osteophytic changes noted to the midfoot. Right foot x-rays (10/01/2025): FINDINGS: No fracture, dislocation, or suspicious bone lesion. Normal bone mineralization. Normal alignment. Mild changes of osteoarthritis are present in the first MTP joint with mild bunion formation involving the median eminence of the first metatarsal head. Normal plantar arch. Moderate sized plantar and small dorsal calcaneal spurs present. Soft tissues appear normal. IMPRESSION: 1. No acute bony or soft tissue abnormalities. 2. Mild degenerative arthritis involving the first MTP joint with mild bunion formation. 3. Moderate sized plantar and small dorsal calcaneal spurs. Assessment & Plan Assessment & Plan (1) Type 2 diabetes mellitus with diabetic polyneuropathy: Code(s): E11.42 - Type 2 diabetes mellitus with diabetic polyneuropathy Category: Medical Qualifiers: Diabetes mellitus alf insulin use: with alf use Qualified Code(s): E11.42 - Type 2 diabetes mellitus with diabetic polyneuropathy; Z79.4 - ocean transportation intermediary (current) use of insulin (2) Uncontrolled type 2 diabetes mellitus with hyperglycemia, with long-term current use of insulin: Code(s): E11.65 - Type 2 diabetes mellitus with hyperglycemia; Z79.4 - long-term (current) use of insulin Category: Medical (3) Bilateral foot pain: Code(s): M79.671 - Pain in right foot; M79.672 - Pain in left foot Category: Medical (4) Arthritis of both feet: Code(s): M19.071 - Primary osteoarthritis, right ankle and foot; M19.072 - Primary osteoarthritis, left ankle and foot Category: Medical (5) Calcaneal spur: Code(s): M77.30 - Calcaneal spur, unspecified foot Category: Medical (6) Plantar fasciitis, right: Code(s): M72.2 - Plantar fascial fibromatosis Category: Medical (7) Insertional tendinopathy of right Achilles tendon: Code(s): M76.61 - Achilles tendinitis, right leg Category: Medical (8) Pain in right foot: Code(s): M79.671 - Pain in right foot Category: Medical (9) Other specified epidermal thickening: Code(s): L85.8 - Other specified epidermal thickening Category: Medical (10) Fissures in skin of both feet: Code(s): R23.4 - Changes in skin texture Category: Medical (11) Xerosis cutis: Code(s): L85.3 - Xerosis cutis Category: Medical (12) Callus of foot: Code(s): L84 - Corns and callosities Category: Medical (13) Tinea unguium: Code(s): B35.1 - Tinea unguium Category: Medical (14) Diabetic neuropathy: Code(s): E11.40 - Type 2 diabetes mellitus with diabetic neuropathy, unspecified Category: Medical (15) Varicose veins of bilateral lower extremities with other complications: Code(s): I83.893 - Varicose veins of bilateral lower extremities with other complications Category: Medical Plan Patient was informed and verbally consented to the use of an ambient scribe for clinic note documentation during this visit. I reviewed the patient's foot x-rays with her, explaining that while there were no fractures, the images showed arthritis, evidenced by decreased joint space and osteophyte. I also showed her the bone spurs on the bottom and back of her heel, explaining that the former is associated with plantar fasciitis and the latter with Achilles tendonitis, resulting from chronic inflammation and tension. For pain management, I prescribed lidocaine patches as a topical option that would not interfere with her upcoming sonogram. We discussed the developing varicose veins, and I recommended tlaz-vgw-ayppbha compression stockings. I scheduled her for a follow-up in nine weeks to monitor her condition. - Prescribed lidocaine patches for pain control, with instructions to apply them to painful areas. - Recommended the use of bfwj-vkz-hiexnrb compression stockings for varicose veins. - Debrided toenails x10. - Continue using ammonium lactate cream. - Advised patient to wear supportive shoe gear and avoid barefoot walking. Continue wearing diabetic shoes and inserts. RTC in 9 weeks. Orders: Orders AMB Debridement/Avulsion Podiatry 10/07/25 E11.40 - Type 2 diabetes mellitus with diabetic neuropathy, unspecified, E11.42 - Type 2 diabetes mellitus with diabetic polyneuropathy, E11.65 - Type 2 diabetes mellitus with hyperglycemia, M19.071 - Primary osteoarthritis, right ankle and foot, M19.072 - Primary osteoarthritis, left ankle and foot, Z79.4 - ocean transportation intermediary (current) use of insulin Medications: New lidocaine 5% leave on most painful area for up to 12 hrs 1 patch topical DAILY 30 ea 0RF E11.42 - Type 2 diabetes mellitus with diabetic polyneuropathy, E11.65 - Type 2 diabetes mellitus with hyperglycemia, M19.071 - Primary osteoarthritis, right ankle and foot, M19.072 - Primary osteoarthritis, left ankle and foot, M72.2 - Plantar fascial fibromatosis, M76.61 - Achilles tendinitis, right leg, M77.30 - Calcaneal spur, unspecified foot, M79.671 - Pain in right foot, M79.672 - Pain in left foot, Z79.4 - long-term (current) use of insulin Coding Level of Care Code Est Pt Level 4 (20512) Diagnoses Type 2 diabetes mellitus with diabetic polyneuropathy, with long-term current use of insulin E11.42; Z79.4 Diabetes mellitus alf insulin use: with alf use Uncontrolled type 2 diabetes mellitus with hyperglycemia, with long-term current use of insulin E11.65; Z79.4 Bilateral foot pain M79.671; M79.672 Arthritis of both feet M19.071; M19.072 Calcaneal spur M77.30 Plantar fasciitis, right M72.2 Insertional tendinopathy of right Achilles tendon M76.61 Pain in right foot M79.671 Other specified epidermal thickening L85.8 Fissures in skin of both feet R23.4 Xerosis cutis L85.3 Callus of foot L84 Tinea unguium B35.1 Diabetic neuropathy E11.40 Varicose veins of bilateral lower extremities with other complications I83.893 CPT Codes Skin Debridement - CPT: 12869-Ayydbfrjtct of Nail 6+ ([id number]) Time Spent (min) 38 Comment 8 mins for the procedure
[2025-10-07 13:18] VITALS: BMI 33.6
== END 2025-10-07 13:30 | disposition home or self-care (01) ==
LOC: HO.HPODS 13:02
PROVIDERS: PCP Internal Medicine; Visit Provider Student in an Organized Health Care Education/Training Program
DX: E11.42 Type 2 diabetes mellitus with diabetic polyneuropathy (principal); Z79.4 Long term (current) use of insulin; E11.65 Type 2 diabetes mellitus with hyperglycemia; M19.071 Primary osteoarthritis, right ankle and foot; M19.072 Primary osteoarthritis, left ankle and foot; M77.30 Calcaneal spur, unspecified foot; M72.2 Plantar fascial fibromatosis; M76.61 Achilles tendinitis, right leg; L85.8 Other specified epidermal thickening; R23.4 Changes in skin texture; L85.3 Xerosis cutis; B35.1 Tinea unguium; L84 Corns and callosities; E11.40 Type 2 diabetes mellitus with diabetic neuropathy, unspecified; I83.893 Varicose veins of bilateral lower extremities with other complications
CPT/HCPCS: 11721; 99214

== ENCOUNTER → 2025-10-07 13:01 | Outpatient (BNVA) | payer OTHER, SELFPAY | PROVIDERS: PCP Internal Medicine; Visit Provider Student in an Organized Health Care Education/Training Program | DX: E11.42 Type 2 diabetes mellitus with diabetic polyneuropathy (principal); Z79.4 Long term (current) use of insulin; E11.65 Type 2 diabetes mellitus with hyperglycemia; M19.071 Primary osteoarthritis, right ankle and foot; M19.072 Primary osteoarthritis, left ankle and foot; M72.2 Plantar fascial fibromatosis; M76.61 Achilles tendinitis, right leg; L85.8 Other specified epidermal thickening; R23.4 Changes in skin texture; L85.3 Xerosis cutis; L84 Corns and callosities; E11.40 Type 2 diabetes mellitus with diabetic neuropathy, unspecified; M77.31 Calcaneal spur, right foot | CPT/HCPCS: 11721; 99212 ==

== ENCOUNTER → 2025-10-09 14:27 | Outpatient (BNV) | payer OTHER, SELFPAY | PROVIDERS: PCP Internal Medicine; Visit Provider Radiology Diagnostic Ultrasound | DX: M75.31 Calcific tendinitis of right shoulder (principal); M25.811 Other specified joint disorders, right shoulder | CPT/HCPCS: 73221 ==

== ENCOUNTER 2025-10-09 14:57 | Outpatient (REF) | payer OTHER, SELFPAY ==
--- NOTE | ~2025-10-09 | MR_ITS ---
EXAMINATION: MR SHOULDER WITHOUT CONTRAST, RIGHT CLINICAL INFORMATION: Unspecified disorder right shoulder. Patient reports pain, 1-2 years. Arthritis. COMPARISON: X-ray 12/31/2022 TECHNIQUE: MRI of the shoulder without contrast was performed on a high-field scanner. FINDINGS: ROTATOR CUFF: Supraspinatus: Moderate-severe tendinosis. Bursal surface and intrasubstance fraying/ill-defined partial tear in the anterior/middle fibers involving a segment approximately 1.4 cm AP. Linear intrasubstance tear in the posterior fibers. There is intrasubstance tearing of the myotendinous region and muscle measuring 1.8 cm medial-lateral. Infraspinatus: Mild tendinosis Teres minor: Intact Subscapularis: Mild tendinosis No muscle atrophy or fatty infiltration. BICEPS: Mild proximal biceps tendinosis. CORACOACROMIAL ARCH: The undersurface of the acromion is mildly curved with no subacromial spur. Moderate acromioclavicular arthritis. Mild subacromial subdeltoid bursitis. LABRUM/CAPSULE: No displaced labral tear is seen. Intact inferior capsule GLENOHUMERAL JOINT/MARROW: No fracture. No high-grade chondral loss. No suspicious marrow signal changes. No significant effusion. MR/MR shoulder RT wo con IMPRESSION: * Supraspinatus moderate-severe tendinosis. Bursal surface and intrasubstance fraying/partial tearing involving a segment approximately 1.4 cm AP. Linear intrasubstance tear in the posterior fibers. Intrasubstance partial tearing of the proximal tendon/myotendinous region measuring 1.8 cm medial-lateral. * Mild infraspinatus and subscapularis tendinosis * Mild proximal biceps tendinosis * Moderate acromioclavicular arthritis. Mild subacromial subdeltoid bursitis. Additional findings and details as above. Electronically signed by: Dayday Engle MD 10/11/2025 08:08 AM [facility]
--- OUTSIDE RECORDS SUMMARY | 2025-10-09 15:01 | XMS_ITS | Clinical Summary ---
Author Organization [facility] Address [address] [address] Phone Care Team Providers Care Privacy Specialist Name Role Phone Mal Yin MD [...] Active ferrous sulfate 325 mg (65 mg timbi-sha shoshone iron) tablet Take 1 tablet by mouth [...] topic Medical Devices Not on file Insurance [facility] [employer] [facility] Care Teams Privacy Specialist Relationship Specialty Start Date End Date Mal Yin MD [address] [place] [address] [place] [address] PCP - General Internal Medicine 08/20/19 Additional Source Comments The information contained in this document represents components of the legal health record. It is not the complete legal health record.[facility]
--- OUTSIDE RECORDS SUMMARY | 2025-10-09 15:01 | XMS_ITS | Encounter Summary ---
Author Organization [facility] Address [address] [facility] [address] [place] [address] Phone Care Team Providers Care Dial Printer Name Role Phone Mal Yin MD Primary Care Provider Reason for Referral * Occupational Therapy (Routine) - Closed Specialty Diagnoses / Procedures Referred By Lito t Referred To Contact Occupational Therapy Diagnoses Personal history of transient ischemic attack (TIA), and cerebral infarction without residual deficits Mal Yin MD [address] [place] [address] Dr BOWIE [address] [place] [address] Phone: tel: fax: [address] [address] Phone: tel: Referral ID Status Reason Start Date Expiration Date Visits Re quested Visits Authorized [id number] Closed 09/01/2019 11/03/2019 3 3 Encounter Details Date Type Department Care Team (Latest Contact Info) Description 09/01/2019 Transcribe Orders [facility] [address] [place] [address] Mal Yin MD [address] [place] [address] Dr BOWIE [address] [place] [address] [place] [id number] Encounter for rehabilitation (Primary Dx) Social History [...] Diagnoses Orde r Schedule Ambulatory referral to [facility] Occupational Therapy Outpatient Referral Routine Encounter for rehabilitation Ordered: 09/01/2019 documented as of this encounter Visit Diagnoses Diagnosis Encounter for rehabilitation- Primary documented in this encounter Care Teams Dial Printer Relationship Specialty Start Date End Date Mal Yin MD [address] [place] [address] Dr BOWIE [address] [place] [id number] PCP - General Internal Medicine 08/20/19 documented as of this encounter Additional Source Comments The information contained in this document represents components of the legal health record. It is not the complete legal health record.[facility]
--- OUTSIDE RECORDS SUMMARY | 2025-10-09 15:01 | XMS_ITS | Encounter Summary ---
Author Organization [facility] Address [address] [address] Phone Care Team Providers Care Plumbing Foreman Name Role Phone Mal Yin MD Primary Care Provider Encounter Details Date Type Department Care Team ([facility] st Contact Info) Description 08/30/2022 Ancillary Orders [facility] Orthopedics & Sports Medicine [address] [place] [id number] Ayaz Hanna MD [address] [place] [address] Orthopedics & Sports Medicine, [facility] [place] [address] [email or web address] Ankle pain Social History Tobacco Use Types [...] foot documented in this encounter Care Teams Plumbing Foreman Relationship Specialty Start Date End Date Mal Yin MD [address] [place] [address] Dr Scales, [place] [address] PCP - General Internal Medicine 08/20/19 documented as of this encounter Additional Source Comments The information contained in this document represents components of the legal health record. It is not the complete legal health record.[facility]
== END 2025-10-09 14:58 | disposition home or self-care (01) ==
LOC: HO.MRI 14:57
PROVIDERS: PCP Internal Medicine; Visit Provider Internal Medicine
DX: M25.811 Other specified joint disorders, right shoulder (principal)
CPT/HCPCS: 73221

== ENCOUNTER 2025-10-22 10:11 | Outpatient (AMB) | payer OTHER, SELFPAY ==
--- NOTE | 2025-10-22 10:23 | A.OFFVIS_ITS ---
Vital Signs 10/22/25 10:24 Height 5 ft Weight 183 lb BMI 35.7 BP 152/67 H Blood Pressure Location Lt brachial Position Sitting Respiration 16 Pulse 83 Pulse Source Pulse Oximeter Pulse Oximetry (%) 98 Oxygen Delivery Method Room Air Intake Visit Reasons: LEFT KNEE INJECTION Refrigeration Plant Cork Insulator Required: No Senior Sharepoint Developer: Senior Sharepoint Developer Present Accompanied by: Tan Mendez Allergies GEL ELECTRODES Allergy (Mild, Uncoded 10/22/25 10:25) RASH Medication List - Last Reconciled 10/22/25 by Monica Brock LPN acetaminophen (Tylenol Extra Strength) 500 mg PO Q6H PRN alcohol swabs pad topical ammonium lactate 12% 1 appl topical BID ascorbic acid (vitamin C) 250 mg PO BID aspirin 81 mg PO DAILY atenolol 50 mg PO DAILY atorvastatin 40 mg PO DAILY@1700 [Bed pad As directed] blood sugar diagnostic (FreeStyle Lite Strips) DIRECTED 4 TIMES A DAY blood-glucose sensor (EKK Sweet TeasStyle Marty 3 Plus Sensor device) Use daily As directed to monitor glucose blood-glucose,television receiver analyzer,cont (FreeStyle Marty 3 [place]) Use daily As directed to monitor blood glucose [Briefs As directed] cholecalciferol (vitamin D3) 50 mcg PO DAILY 3 months docusate sodium (Colace) Take one tablet daily [Electric Wheelchair As directed] empagliflozin (Jardiance) 10 mg PO QAM famotidine 40 mg PO BEDTIME ferrous sulfate 325 mg PO DAILY [Gloves As directed] insulin glargine U-300 conc (Toujeo Max U-300 SoloStar) 45 units subcut BEDTIME insulin lispro (Admelog SoloStar U-100 Insulin lispro) 15 u for small meals, 15 u for large, + 2 units for bg>200, + 3 units for BG >250, + 4 units bg >300mg/dl. Of note..for very light meal use only 6 units. subcut 3 times a day; 30 days Knee brace As directed lancets (FreeStyle Lancets) As directed lidocaine 5% 1 patch topical DAILY lisinopril 40 mg PO DAILY mecobalamin (vitamin B12) 1,000 mcg sublingual BEDTIME 3 months metformin 500 mg PO BID 90 days pantoprazole (Protonix) 40 mg PO DAILY pen needle, diabetic Use QID As directed polyethylene glycol 3350 (Gavilax) 17 grams PO DAILY semaglutide (Ozempic) 2 mg (0.75 mL) subcut QWEEK spironolacton-hydrochlorothiaz 25-25 mg 1 tab PO DAILY sumatriptan succinate 50 mg PO DAILY PRN tramadol 50 mg PO TID PRN [wrist brace As directed bilateral wrist braces for CTS ] HPI HPI LEFT KNEE INJECTION: Details: Patient presents for scheduled procedure. Denies any recent cough, cold, infection, fever or other significant changes in medical history since last office visit. [facility] Medical History (Updated 10/10/25 @ 12:31 by Mala Perez DPM) Varicose veins of bilateral lower extremities with other complications Insertional tendinopathy of right Achilles tendon Plantar fasciitis, right Calcaneal spur Arthritis of both feet Bilateral foot pain Tinea unguium Xerosis cutis Fissures in skin of both feet Other specified epidermal thickening Pain in right foot Epigastric pain Abdominal pain Dysphagia Arthritis Anemia GI bleed Temporal headache Urinary incontinence Chronic constipation Fibromyalgia Primary osteoarthritis of knees, bilateral NAFLD (nonalcoholic fatty liver disease) Tubular adenoma of colon Essential hypertension Neuropathy Osteoarthritis DARIEL on CPAP Upper GI bleed Hepatomegaly History of alcohol abuse Stroke Depression Anxiety Hyperlipidemia LDL goal <70 Obesity with body mass index of 30.0-39.9 Type 2 diabetes mellitus with diabetic polyneuropathy Surgical History History of temporal artery biopsy Hx of esophagogastroduodenoscopy Hx of colonoscopy Family History (Updated 09/27/25 @ 10:33 by RADHA Balderrama) Father Diabetes Mother Hypertension Daughter Breast cancer Ovarian cancer Social History Household Members: Family Household Members Other:: adult child and grandchild Housing: Apartment Are you a primary client care consultant to a significant other at home: No Do you presently have visiting nurse or other home services: No Alcohol intake: former Patient Tobacco Use Status: Former Tobacco user Years Smoked: quit 10 years ago e-Cigarette/Vaping Use: Never Used Second Hand Smoke Exposure: Yes service: No Current occupational status: disabled Current occupation: rt handed Cognitive needs: Yes (Walker, wheelchair) Hearing needs: No Vision needs: Yes (Glasses) Physical Exam Vital Signs: Last Vital Signs Pulse 83 10/22/25 10:24 Resp 16 10/22/25 10:24 BP 152/67 H 10/22/25 10:24 Pulse Ox 98 10/22/25 10:24 Oxygen Delivery Method Room Air 10/22/25 10:24 BMI result Body Mass Index 35.7 Office Procedures AMB Joint Injection/Aspiration Joint Injection/Aspiration Primary Site: Right Knee Prep: site was prepped using sterile technique and injection warnings given Injected: 20 mg of, Kenalog, with 3 mL of (ropivacaine 0.25%) and in the joint Approach Used: medial parapatellar Procedure: The patient tolerated the procedure well Coding 19291 - Large joint Procedure code (CPT) selection complete Assessment & Plan Assessment & Plan (1) Primary osteoarthritis of knees, bilateral: Comment: bilateral knee pain Code(s): M17.0 - Bilateral primary osteoarthritis of knee Category: Medical Plan Patient is status post right knee steroid injection. Patient tolerated procedure well and was discharged home in stable condition with discharge instructions. All questions were answered. Ortho referral for consideration of TKR. Orders: Referrals Orthopedics Referral M17.0 - Bilateral primary osteoarthritis of knee Coding Level of Care Code Procedure Only Diagnoses Primary osteoarthritis of knees, bilateral M17.0 CPT Codes Coding - 00720 Large joint: 72710 - Large joint ([id number])
[2025-10-22 10:24] VITALS: BP 152/67; PULSE 83; RESP 16; O2SAT 98; BMI 35.7
--- OUTSIDE RECORDS SUMMARY | 2025-10-22 11:31 | XMS_ITS | Clinical Summary ---
Author Organization [facility] [employer] Address [address] [facility] [address] [place] [address] Care Team Providers Care Umbrella Finisher Name Role Phone Unavailable Primary Care Provider Unavailabl e Social History Tobacco Use Types Packs/Day Years Used Date Smoking Tobacco: Never Assessed Comments Unknown Sex and Gender Information Value Date Recorded Sex Assigned at Female 09/03/2022 10:22 AM EDT Legal Sex Female 10:22 AM EDT Gender Identity Female 10/11/2025 8:57 AM EST Sexual Orientation Choose not to disclose 2024 8:57 AM EST Plan of Treatment Upcoming Encounters Date Type Department Care Team (Late st Contact Info) Description 11/16/2025 10:00 AM EST Office Visit [facility] [address] [place] [address] Abdulaziz Villarreal DDS [address] [place] [address] Health Maintenance Due Date Last Done Comments CT Colonography 1960 Colonoscopy 1960 Colorectal Cancer Screening 1960 Depression Screening 1960 FIT DNA/Cologuard 1960 FIT 1960 FOBT 1960 Lipid Panel 1960 SDOH Screening 1960 Sigmoidoscopy 1960 Alcohol/Substance Use Screening 1972 Tobacco Screening 1972 Hepatitis C Screening 1978 Pap Smear 1981 Cervical Cancer Screening 1990 HPV/Cotest 1990 Mammogram 2000 Zoster Vaccines (1 of 2) 2010 Pneumococcal Vaccine: 50+ Years (2 of 2 - PCV) 04/21/2019 04/21/2018, 07/14/2012 DTaP/Tdap/Td Vaccines (2 - Td or Tdap) 07/14/2022 07/14/2012 COVID-19 Vaccine (3 - season) 2025 04/08/2021, 03/11/2021 RSV Patients and Patients Aged 60 years or older (1 - 1-dose 75+ series) 2035 Influenza Vaccine Completed 07/15/2025, , 08/12/2022, Additional history exists HIB Vaccines Aged Out No longer eligi [...] patient's age to complete this topic Meningococcal Vaccine Aged Out No magaly monik eligible based on patient's age to complete this topic RSV under 20 months Aged Out No longe r eligible based on patient's age to complete this topic Rotavirus Vaccines Aged Out No longer eligible based on patient's age to complete this topic Insurance [facility]
--- OUTSIDE RECORDS SUMMARY | 2025-10-22 11:31 | XMS_ITS | Clinical Summary ---
Author Organization [facility] Facility Address [address] [address] Care Team Providers Care Business Education Instructor Name Role Phone Mal Yin MD Primary Care Provider [phone] Allergies No known active allergies Medications triamcinolone [...] Insurance [employer] Care Teams Business Education Instructor Relationship Specialty Start Date End Date Mal Yin MD [address] [place], [place] PCP - General Internal Medicine 12/20/21
== END 2025-10-22 10:59 | disposition home or self-care (01) ==
LOC: HO.PMC 10:12
PROVIDERS: PCP Internal Medicine; Visit Provider Internal Medicine
DX: M17.0 Bilateral primary osteoarthritis of knee (principal); M25.561 Pain in right knee
CPT/HCPCS: 20610

== ENCOUNTER → 2025-10-22 10:11 | Outpatient (BNVA) | payer OTHER, SELFPAY | PROVIDERS: PCP Internal Medicine; Visit Provider Internal Medicine | DX: M17.0 Bilateral primary osteoarthritis of knee (principal) | CPT/HCPCS: 20610 ==

== ENCOUNTER 2025-11-03 07:40 | Outpatient (REF) | payer OTHER, SELFPAY ==
--- NOTE | ~2025-11-03 | US_ITS ---
EXAMINATION: US ABDOMEN HISTORY: R11.0 - Nausea TECHNIQUE: Real-time grayscale ultrasound imaging of the abdomen was performed and images were reviewed. COMPARISON: Comparison is made with the prior examination dated 05/11/2020. FINDINGS: Liver: The right lobe of the liver measures 22.8 cm in size. The left lobe of the liver measures 11.1 cm in size. The liver demonstrates increased echotexture, consistent with steatosis. No focal mass or intrahepatic biliary ductal dilatation is identified. There is normal hepatopedal flow in the portal vein. Gallbladder and biliary tree: The gallbladder is unremarkable, without evidence of calculi, wall thickening, or pericholecystic fluid. There is no sonographic Reed sign. The common bile duct is normal in caliber measuring 3 mm in diameter. Kidneys: The right kidney measures 11.5 cm in length. The left kidney measures 12.7 cm in length. The kidneys are unremarkable, without evidence of masses, hydronephrosis, or calculi. Pancreas: The pancreatic head, neck, and body are unremarkable. The pancreatic tail is obscured by bowel gas. Spleen: The spleen is normal in size and contour, measuring 9.4 cm in length. Abdominal aorta and inferior vena cava: The visualized portions of the abdominal aorta and inferior vena cava are normal in caliber. There is no free fluid in the abdomen. US/US abdomen complete IMPRESSION: Hepatomegaly and hepatic steatosis. No evidence of cholelithiasis. Electronically signed by: Dudley Corbin MD 11/03/2025 08:35 AM [facility]
--- OUTSIDE RECORDS SUMMARY | 2025-11-03 07:44 | XMS_ITS | Encounter Summary ---
Author Organization [facility] Address [address] [facility] [address] [place] [phone] Phone Care Team Providers Care School Age Teacher Name Role Phone Mal Yin MD Primary Care Provider Reason for Referral * Occupational Therapy (Routine) - Closed Specialty Diagnoses / Procedures Referred By Lito t Referred To Contact Occupational Therapy Diagnoses Personal history of transient ischemic attack (TIA), and cerebral infarction without residual deficits Mal Yin MD [address] [place] [address] Dr BOWIE [address] [place] [phone] Phone: tel: fax: [address] [address] Phone: tel: Referral ID Status Reason Start Date Expiration Date Visits Re quested Visits Authorized [id number] Closed 09/01/2019 11/03/2019 3 3 Encounter Details Date Type Department Care Team (Latest Contact Info) Description 09/01/2019 Transcribe Orders [facility] [address] [place] [address] Mal Yin MD [address] [place] [address] Dr BOWIE [address] [place] [address] [place] [phone] Encounter for rehabilitation (Primary Dx) Social History [...] r Schedule Ambulatory referral to [facility] Occupational Therapy Outpatient Referral Routine Encounter for rehabilitation Ordered: 09/01/2019 documented as of this encounter Visit Diagnoses Diagnosis Encounter for rehabilitation- Primary documented in this encounter Care Teams School Age Teacher Relationship Specialty Start Date End Date Mal Yin MD [address] [place] [address] Dr BOWIE [address] [place] [id number] PCP - General Internal Medicine 08/20/19 documented as of this encounter Additional Source Comments The information contained in this document represents components of the legal health record. It is not the complete legal health record.[facility]
--- OUTSIDE RECORDS SUMMARY | 2025-11-03 07:44 | XMS_ITS | Encounter Summary ---
Author Organization [facility] Address [address] [facility] [address] [place] [address] Phone Care Team Providers Care B2B Sales Executive Name Role Phone Mal Yin MD Primary Care Provider Encounter Details Date Type Department Care Team ([facility] st Contact Info) Description 08/30/[address] [facility] [address] [place] [phone] Ayaz Hanna MD [address] [place] [address] Orthopedics & Sports Medicine, [place] [address] [email or web address] Ankle pain Social [...] foot documented in this encounter Care Teams B2B Sales Executive Relationship Specialty Start Date End Date Mal Yin MD [address] [place] [address] Dr Scales, [place] [address] PCP - General Internal Medicine 08/20/19 documented as of this encounter Additional Source Comments The information contained in this document represents components of the legal health record. It is not the complete legal health record.[facility]
--- OUTSIDE RECORDS SUMMARY | 2025-11-03 07:44 | XMS_ITS | Clinical Summary ---
Author Organization [employer] Address [address] [facility] [address] [place] [address] Care Team Providers Care Technology Resource Teacher Name Role Phone Unavailable Primary Care Provider [...] Description 11/16/2025 10:00 AM EST Office Visit [facility] ADULT [facility]AL [address] [place] [address] Abdulaziz Villarreal DDS [address] [place] [address] Health Maintenance Due Date Last Done Comments [...] age to complete this topic Insurance [facility]
--- OUTSIDE RECORDS SUMMARY | 2025-11-03 07:44 | XMS_ITS | Clinical Summary ---
Author Organization [facility] Facility Address [address] [address] Care Team Providers Care Knit Goods Mender Name Role Phone Mal Yin MD Primary [...] Insurance [employer] Care Teams Knit Goods Mender Relationship Specialty Start Date End Date Mal Yin MD [address] [place], [place] PCP - General Internal Medicine 12/20/21
--- OUTSIDE RECORDS SUMMARY | 2025-11-03 07:44 | XMS_ITS | Clinical Summary ---
Author Organization [facility] Address [address] [address] Phone Care Team Providers Care Template Maker Name Role Phone Mal Yin MD Primary [...] Active ferrous sulfate 325 mg (65 mg [place] iron) tablet Take 1 tablet by mouth [...] topic Medical Devices Not on file Insurance [facility] [employer] [facility] Care Teams Template Maker Relationship Specialty Start Date End Date Mal Yin MD [address] [place] [address] [place] [address] PCP - General Internal Medicine 08/20/19 Additional Source Comments The information contained in this document represents components of the legal health record. It is not the complete legal health record.[facility]
== END 2025-11-03 07:41 | disposition home or self-care (01) ==
LOC: HO.US 07:40
PROVIDERS: PCP Internal Medicine; Visit Provider Nurse Practitioner Family
DX: R11.0 Nausea (principal); R10.13 Epigastric pain
CPT/HCPCS: 76700

== ENCOUNTER → 2025-11-03 07:42 | Outpatient (BNV) | payer OTHER, SELFPAY | PROVIDERS: PCP Internal Medicine; Visit Provider Radiology Diagnostic Radiology | DX: K76.0 Fatty (change of) liver, not elsewhere classified (principal); R16.0 Hepatomegaly, not elsewhere classified | CPT/HCPCS: 76700 ==